=== PATIENT | female | born 1960 | race Caucasian/White ===

== ENCOUNTER 2023-02-18 15:43 | Outpatient (OUT) | payer OTHER, SELFPAY ==
--- NOTE | 2023-02-18 | XR_ITS ---
The [place] [id number] Patient Name: ANUPAM FRANCIS MRN: [id number] date: 1960 Sex: F Assigned Patient Location: [facility] Current Patient Location: [facility] Accession/Order Number: [id number] Exam Date: 02/18/2023 16:05 Report Date: 02/18/2023 17:12 At the request of: TUCKER HAYWOOD Procedure: XR chest 2V EXAM: CHEST 2 VIEWS HISTORY: MODERATE PERSISTENT ASTHMA WITH ACUTE EXACERBATION TECHNIQUE: PA and lateral views chest. COMPARISON: None. FINDINGS: The lungs are hyperinflated with mild interstitial opacities in the lungs likely from chronic small airways disease. There is scarring of the lung apices. There is no focal lung consolidation, pleural effusion or pneumothorax. Pulmonary vasculature is within normal limits. The cardiomediastinal silhouette is normal. There are surgical crystal overlying the right lung apex. IMPRESSION: 1. Pulmonary hyperinflation without consolidation or effusion. Electronically authenticated by: TONI NARANJO Date: 02/18/2023 17:12
== END 2023-02-18 15:44 | disposition home or self-care (01) ==
LOC: LAB 15:46 → RAD 15:48
PROVIDERS: PCP Family Medicine; Visit Provider Family Medicine
DX: J45.41 Moderate persistent asthma with (acute) exacerbation (principal)
CPT/HCPCS: 71046

== ENCOUNTER 2023-04-14 11:59 | Outpatient (OUT) | payer OTHER, SELFPAY ==
--- NOTE | 2023-04-06 09:16 | RT_ITS ---
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 Findings were considered accurate and reproducible. Both pre- and post-bronchodilator values utilized for spirometry. No prior studies available for comparison. Spirometry (based on pre-bronchodilator values): -FEV1/FVC: Low normal @ 72% -FEV1: Moderately reduced @ 76% -FVC: Low normal @ 80% -[id number]%: Reduced @ 57% -There is no significant bronchodilator response in either the FEV1 or FVC Flow-volume loop: -Mild-moderate obstructive pattern Impressions: -Though it does not meet the strict definition of obstruction (FEV1/FVC is not <70%), the study trends towards a moderate obstructive pattern without a positive bronchodilator response. This may suggest COPD, asthma-COPD overlap, or asthma with loss of bronchoreversibility. Clinical correlation required. Electronically Signed On 04-07-2023 15:50:13 EDT by Mao Holland
[2023-04-06] MEDS: ALBUTEROL SULFATE 2.5 MG/3 ML VIAL NEB IH (09:17)
== END 2023-04-14 12:00 | disposition home or self-care (01) ==
LOC: CARD 11:59
PROVIDERS: PCP Family Medicine
DX: J45.41 Moderate persistent asthma with (acute) exacerbation (principal)
CPT/HCPCS: 94060

== ENCOUNTER 2023-12-03 09:36 | Outpatient (OUT) | payer MEDICARE, SELFPAY ==
[2023-12-03 10:02] LABS: Basophils Absolute Auto 0.1 10^3/uL (0.0-0.1); Basophils Percent Auto 0.8 % (0.2-2.0); Eosinophils Absolute Auto 0.1 10^3/uL (0.0-0.7); Eosinophils Percent Auto 1.6 % (0.9-7.0); Hemoglobin 12.4 g/dL (12.0-16.0); Immature Granulocytes Abs Auto 0.01 10^3/uL (0.00-0.03); Immature Granulocytes Pct Auto 0.2 % (0.0-0.5); Lymphocytes Absolute Auto 1.3 10^3/uL (1.2-3.8); Lymphocytes Percent Auto 20.4 % (20.5-60.0); Mean Corpuscular HGB Conc 32.6 g/dL (29.9-35.2); Mean Corpuscular Hemoglobin 31.5 pg (26.7-34.0); Mean Corpuscular Volume 96.4 fL (81.0-99.0); Mean Platelet Volume 10.7 fL (9.5-13.5); Monocytes Absolute Auto 0.5 10^3/uL (0.3-0.8); Monocytes Percent Auto 7.9 % (1.7-12.0); Neutrophils Absolute Auto 4.3 10^3/uL (1.4-6.5); Neutrophils Percent Auto 69.1 % (43.0-75.0); Platelet Count 251 10^3/uL (150-450); Red Blood Count 3.94 10^6/uL (4.20-5.40); Red Cell Distribution Width 12.5 % (11.0-15.0); White Blood Count 6.2 10^3/uL (4.0-11.0)
[2023-12-03 11:03] LABS: Alanine Aminotransferase 23 U/L (14-59); Albumin Globulin Ratio 1.1; Albumin Level 4.1 g/dL (3.4-5.0); Alkaline Phosphatase 119 U/L (46-116); Anion Gap 13.1; Aspartate Amino Transferase 20 U/L (15-37); BUN Creatinine Ratio 16.7; Bilirubin Total 0.5 mg/dL (0.2-1.0); Calcium 9.6 mg/dL (8.5-10.1); Carbon Dioxide 29.4 mmol/L (21.0-32.0); Chloride 101 mmol/L (98-107); Estimated GFR (African America >60 (>=60); Estimated GFR (Non-African Ame 58 (>=60); Globulin 3.6 g/dL; Glucose 95 mg/dL (74-106); Magnesium 2.2 mg/dL (1.8-2.4); Potassium 3.5 mmol/L (3.5-5.1); Sodium 140 mmol/L (136-145); TSH W/ REFLEX FT4 5.632 uIU/mL (0.358-3.740); Total Protein 7.7 g/dL (6.4-8.2)
[2023-12-03 12:04] LABS: Free T4 1.05 ng/dL (0.76-1.46)
== END 2023-12-03 09:37 | disposition home or self-care (01) ==
LOC: LAB 09:40
PROVIDERS: PCP Family Medicine; Visit Provider Family Medicine
DX: E03.9 Hypothyroidism, unspecified (principal); R53.83 Other fatigue; G25.81 Restless legs syndrome
CPT/HCPCS: 36415; 80053; 82728; 83735; 84439; 84443; 85025

== ENCOUNTER 2024-01-25 15:30 | Outpatient (OUT) | payer MEDICARE, SELFPAY ==
--- NOTE | 2024-01-25 | XR_ITS ---
The [address] [address] Patient Name: ANUPAM FRANCIS MRN: [id number] date: 1960 Sex: F Assigned Patient Location: [facility] Current Patient Location: [facility] Accession/Order Number: [id number] Exam Date: 01/25/2024 15:55 Report Date: 01/26/2024 07:46 At the request of: NON-STAFF PHYSICIAN Procedure: XR bone leg length PROCEDURE: XR bone leg length COMPARISON: None. HISTORY: mechanical alignment FINDINGS: BONES:Mild bilateral hip osteoarthropathy with marginal osteophyte formation. Left knee osteoarthritis with joint space narrowing. Evidence of prior left anterior cruciate ligament repair. No acute fracture or dislocation. Right le.1 cm from the cranial femoral head to the medial femoral condyle Left le.2 cm in the cranial femoral head to the medial femoral condyle SOFT TISSUES:Negative. No visible soft tissue swelling. EFFUSION:None visible. OTHER: The legs are imaged from the mid pelvis to the distal tibia. The ankles are not imaged XR/XR bone leg length IMPRESSION: The femurs are equal in length Electronically authenticated by: IMAN BUENROSTRO Date: 01/26/2024 07:46
--- NOTE | 2024-01-25 15:41 | XR_ITS ---
The [address] [address] Patient Name: ANUPAM FRANCIS MRN: [id number] date: 1960 Sex: F Assigned Patient Location: [facility] Current Patient Location: Accession/Order Number: [id number] Exam Date: 01/25/2024 15:55 Report Date: 01/26/2024 07:10 At the request of: NON-STAFF PHYSICIAN Procedure: XR knee RC 4V EXAMINATION: XR knee RC 4V HISTORY: Primary osteoarthritis of left knee M17.12 COMPARISON: No relevant comparison available. FINDINGS: RIGHT FINDINGS: BONES: Normal. No significant arthropathy or acute abnormality. SOFT TISSUES: Negative. No visible soft tissue swelling. OTHER: Negative. LEFT FINDINGS: BONES: Evidence of prior ACL repair. Mild narrowing of the medial joint space. Mild tricompartmental osteoarthropathy with marginal osteophyte formation SOFT TISSUES: Negative. No visible soft tissue swelling. OTHER: Small suprapatellar joint effusion XR/XR knee RC 4V IMPRESSION: RIGHT CONCLUSION: No acute abnormality LEFT CONCLUSION: Mild tricompartment osteoarthritis Electronically authenticated by: IMAN BUENROSTRO Date: 01/26/2024 07:10
== END 2024-01-25 15:31 | disposition home or self-care (01) ==
LOC: RAD 15:31
PROVIDERS: PCP Family Medicine
DX: M17.12 Unilateral primary osteoarthritis, left knee (principal)
CPT/HCPCS: 73564; 77073

== ENCOUNTER 2024-02-18 12:09 | Outpatient (OUT) | payer MEDICARE, OTHER, SELFPAY ==
--- OUTSIDE RECORDS SUMMARY | 2024-02-18 12:26 | XMS_ITS | CCD ---
Author Organization [facility] Care Team Providers Care Cop Examiner Name Role Phone YOBANY, DR TUCKER Greenwood Attending Unavailable YOBANY, DR TUCKER Greenwood Primary Care Unavailable ONEYDA, DR ANTONIO Sorenson Consulting Unavailable HAYWOOD, DR TUCKER Greenwood Admitting Unavailable HAYWOOD, DR TUCKER Greenwood Consulting Unavailable HAYWOOD, DR TUCKER Greenwood Attending Unavailable HAYWOOD, DR TUCKER Greenwood Primary Care Unavailable ONEYDA, DR ANTONIO Sorenson Consulting Unavailable YOBANY, DR TUCKER Greenwood Admitting Unavailable HAYWOOD, DR TUCKER Greenwood Consulting Unavailable YOBANY, DR TUCKER Greenwood Primary Care Unavailable SHAIKH RILEY Attending Unavailable SHAIKH RILEY Consulting Unavailable SHAIKH RILEY Admitting Unavailable Unavailable Primary Care Provider Unavailtrice Haywood MD, Tucker Primary Care Provider [phone] Mel Giron MD Unavailable [phone] Emery MACHADO, Barbara L Unavailable Tucker Haywood MD Primary Care Provider [phone] Mel Giron MD Unavailable Emery MACHADO, Barbara L Unavailable [phone] Tucker Haywood Unavailable Tucker Haywood MD Primary Care Provider Mel Giron MD Unavailable Emery MACHADO, Barbara L Unavailable [phone] Sola Samayoa Unavailable MD Tucker Haywood Primary Care Provider [phone] LEI Samayoa Attending Provider [phone] MD Tucker Haywood Primary Care Provider [phone] Danita, PAPER WO[employer] CUTTER Sola Attending Provider Danita, Sola Admitting Unavailable Danita, Sola Attending Unavailable Haywood, Tucker E Primary Care Unavailable Danita, Sola Admitting Unavailable Danita, Sola Attending Unavailable Haywood, Utcker E Primary Care Unavailable Yobany SIERRA, Tucker Greenwood Primary Care Provider James SIERRA, Sarah Unavailable Unavailable Manan SIERRA, Chete Unavailable [phone] Lakeisha SIERRA, Wood Unavailable BRET ONEAL Attending Unavailable HAYWOOD, TUCKER E Primary Care Unavailable HILLS, MAURICIO D Attending Unavailable HILLS, MAURICIO D Referring Unavailable HILLS, MAURICIO D Referring Unavailable MARIN, KARMEN Attending Unavailable HILLS, MAURICIO D Referring Unavailable MARIN, KARMEN Attending Unavailable HILLS, MAURICIO D Referring Unavailable MARIN, KARMEN Attending Unavailable HILLS, MAURICIO D Referring Unavailable MARIN, KARMEN Attending Unavailable HILLS, MAURICIO D Referring Unavailable HILLS, MAURICIO D Referring Unavailable HILLS, MAURICIO D Attending Unavailable LILLIE ROMERO Attending Unavailable HAYWOOD, TUCKER Referring Unavailable HAYWOOD, TUCKER Primary Care Unavailable MEL VALDES P Attending Unavailable ABIMBOLA, TYRELL H Attending Unavailable HAYWOOD, TUCKER Primary Care Unavailable HAYWOOD, TUCKER Referring Unavailable ABIMBOLA, TYRELL H Admitting Unavailable HAYWOOD, TUCKER Referring Unavailable HAYWOOD, TUCKER Primary Care Unavailable ABIMBOLA, TYRELL H Attending Unavailable HAYWOOD, TUCKER Referring Unavailable HAYWOOD, TUCKER Primary Care Unavailable ABIMBOLA, TYRELL H Attending Unavailable HAYWOOD, TUCKER Referring Unavailable HAYWOOD, TUCKER Primary Care Unavailable ABIMBOLA, TYRELL H Attending Unavailable ABIMBOLA, TYRELL H Attending Unavailable HAYWOOD, TUCKER Primary Care Unavailable HAYWOOD, TUCKER Referring Unavailable BARBARA SANTIAGO Attending Unavailable HAYWOOD, TUCKER Primary Care Unavailable HAYWOOD, TUCKER Referring Unavailable HAYWOOD, TUCKER Referring Unavailable HAYWOOD, TUCKER Primary Care Unavailable ABIMBOLA, TYRELL H Attending Unavailable HAYWOOD, TUCKER Referring Unavailable HAYWOOD, TUCKER Primary Care Unavailable VALDESMEL SILVA Attending Unavailable Allergies Allergy Classification Reported Allergen(s) Allergy Type Date of Onset Reaction(s) Facility (6 sources) Plasmin Drug Allergy [address] [facility] Repository (20 sources) SUMAtriptan; Translations: [SUMATRIPTAN] Drug Allergy 3 Mental Status Change [facility] (1 source) SUMAtriptan Drug Allergy 4 [facility] Repository Medications Current Medications Medication Drug Class(es) Dates Sig (Normalized) Sig (Original) 30 ACTUAT fluticasone furoate 0.2 MG/ACTUAT / umeclidinium 0.0625 MG/ACTUAT / vilanterol 0.025 MG/ACTUAT Dry Powder Inhaler [Trelegy] (5 sources) Start: 11-27-2022 take 1 puff(s) by inhalation once daily Trelegy Ellipta 200-62.5-25 MCG/ACT 1 puff Inhalation Once a day for 90 days Oct, Active 8 hr acetaminophen 650 mg extended release oral tablet (20 sources) Start: 06-29-2022 take 1 tablet by mouth every six hours acetaminophen 650 MG Tab CR Take 1 tablet by mouth every 6 hours for 2 days. 8 tablet 0 06/29/2022 Active Start: 04-11-2022 End: 04-16-2022 take 3 tablets by mouth every eight hours acetaminophen 325 MG tablet Take 3 tablets by mouth every 8 hours for 5 days. 45 tablet 0 04/11/2022 Active Start: 04-10-2022 End: 04-11-2022 take 1 tablet by mouth every eight hours 975 mg, Oral, EVERY 8 HOURS NON-STANDARD, First dose on Wed04/10/22 at 1600, Until Discontinued Administer each dose four hours after dose of ibuprofen. Post-op/Post-Proc [id number] 200 actuat albuterol 0.09 mg/actuat metered dose inhaler (20 sources) beta2-Adrenergic Agonist Start: 10-01-2022 take 2 puff(s) by inhalation every four hours as needed Albuterol Sulfate HFA 108 (90 Base) MCG/ACT 2 puff Inhalation every 4 hrs prn for 90 days Sep, Active Start: 10-01-2022 take 2 puff(s) by in halation every four hours as needed Albuterol Sulfate HFA 108 (90 Base) MCG/ACT 2 puff Inhalation every 4 hrs prn for 90 days Sep, Active Start: 07-28-2021 Albuterol Acti ve 90 MCG INHALATION As Directed July 28, 2021 12:00am Start: 02-14-2021 take 2 puff(s) by in halation every six hours as needed albuterol HFA (PROAIR HFA) 90 mcg/actuation inhaler Inhale 2 Puffs as instructed every 6 hours as needed. 8.5 g 11 02/14/2021 Active Start: 08-12-2017 take 1 dose by inhal ation every four hours as needed for cough albuterol (PROVENTIL) 2.5 mg /3 mL (0.083 %) nebulizer solution inhale 1 (ONE) vial via NEBULIZER EVERY 4 HOURS NEEDED for cough 0 08/12/2017 Active Start: 11-28-2014 Albuterol Sulf ate (2.5 MG/3ML) 0.083% 3 ml Inhalation Four times a day as needed Nov, Active Albuterol Sulfat e 108 (90 Base) MCG/ACT Aerosol Powder, breath activated Inhale. Prn 0 Active amoxicillin 875 mg / clavulanate 125 mg oral tablet (1 source) Penicillin-class Antibacterial Start: 06-17-2023 take 1 tablet by mouth every twelve hours Amoxicillin-Pot Clavulanate 875-125 MG 1 tablet Orally every 12 hrs for 10 day(s) May, Active anastrozole 1 mg oral tablet (11 sources) Aromatase Inhibitor Start: 08-12-2022 End: 10-09-2023 take 1 tablet by mouth once daily anastrozole 1 MG tablet Indications: Malignant neoplasm of lower-inner quadrant of right breast of female, estrogen receptor positive Take 1 tablet by mouth daily. May take without regard to food. Dx: Breast Cancer 90 tablet 3 10/14/2022 10/09/2023 Active azithromycin 250 mg oral tablet (3 sources) Macrolide Antimicrobial Start: 05-11-2023 Azithromycin 250 MG as directed Orally 2 tabs po today, then 1 tab daily x 4 more days for 5 Apr, Active Start: 11-27-2022 Azithromycin 2 50 MG as directed Orally 2 tabs po today, then 1 tab daily x 4 more days for 5 Oct, Active 120 actuat budesonide 0.16 mg/actuat / formoterol fumarate 0.0048 mg/actuat / glycopyrrolate 0.009 mg/actuat metered dose inhaler (20 sources) Corticosteroid, beta2-Adrenergic Agonist Start: 12-29-2021 take 2 puff(s) by mouth twice daily Anderson Aerosphere 160-9-4.8 MCG/ACT Aerosol INHALE 2 PUFFS BY MOUTH TWICE DAILY 0 12/29/2021 Active Calcium Carbonate / Vitamin D (9 sources) Calcium Carbonate-Vitamin D (CALTRATE 600+D PO) Take by mouth. 0 Active cephalexin 500 mg oral capsule (5 sources) Cephalosporin Antibacterial Start: 04-11-2022 End: 04-25-2022 take 2 capsules by mouth twice daily cephALEXin 500 MG capsule Take 2 capsules by mouth 2 times daily for 14 days. 56 capsule 1 04/11/2022 04/25/2022 Active cetirizine hydrochloride 10 mg oral tablet (10 sources) Histamine-1 Receptor Antagonist Start: 05-19-2023 take 1 tablet by mouth every twenty-four hours Cetirizine HCl 10 MG 1 tablet Orally Once a day Take in the morning Apr, Active cyclobenzaprine hydrochloride 10 mg oral tablet (11 sources) Muscle Relaxant Start: 04-16-2022 End: 04-21-2022 take 1 tablet by mouth three times daily as needed for muscle spasms cyclobenzaprine 10 MG tablet Indications: Malignant neoplasm of lower-inner quadrant of right breast of female, estrogen receptor positive Take 1 tablet by mouth 3 times daily as needed for Muscle spasms for up to 5 days. 15 tablet 1 04/16/2022 Active Start: 04-10-2022 End: 04-16-2022 take 1 tablet by mouth every six hours as needed cyclobenzaprine 10 MG tablet Take 1 tablet by mouth every 6 hours as needed for Other (Muscle cramping or pain, use prior to opioids.) for up to 5 days. 20 tablet 0 04/11/2022 04/16/2022 Active docusate sodium 100 mg oral capsule (3 sources) Start: 04-11-2022 End: 04-18-2022 take 1 capsule by mouth twice daily docusate 100 MG capsule Take 1 capsule by mouth 2 times daily for 7 days. 14 capsule 0 04/11/2022 04/18/2022 Active esomeprazole 40 mg delayed release oral capsule (20 sources) Proton Pump Inhibitor Start: 06-24-2017 take 1 capsule by mouth once daily esomeprazole (NEXIUM) 40 mg capsule Take 1 capsule by mouth once daily. 0 06/24/2017 Active take 1 capsule by [facility] once daily before breakfast esomeprazole [address] capsule Take 1 capsule by mouth every morning before breakfast. 0 Active estradiol 0.5 mg oral tablet (13 sources) Estrogen Start: 07-28-2021 End: 03-20-2022 Estradiol Active 0.5 MG PO As Directed July 28, 2021 12:00am exemestane 25 mg oral tablet (5 sources) Aromatase Inhibitor Start: 05-17-2023 take 1 tablet by mouth once daily at mealtime exemestane 25 MG tablet Indications: Malignant neoplasm of lower-inner quadrant of right breast of female, estrogen receptor positive Take 1 tablet by mouth daily. Take with food. Dx C50.919 30 tablet 1 05/17/2023 Active famotidine 20 mg oral tablet (5 sources) Histamine-2 Receptor Antagonist take 1 tablet by mouth at bedtime faMOTIdine 20 MG tablet Take 1 tablet by mouth at bedtime. 0 Active Fluticasone-Umecl idin-Vilanter (2 sources) Start: 07-28-2021 Fluticasone-Um ecli din-Vilanter (Trelegy Ellipta) 200-62.5-25 mcg blister with device Active 2 INH INHALATION As Directed July 28, 2021 12:00am fluticasone-umecl idin-vilanter (TRELEGY ELLIPTA) 200-62.5-25 mcg dsdv (2 sources) Start: 09-16-2020 fluticasone-um ecli din-vilanter (TRELEGY ELLIPTA) 200-62.5-25 mcg dsdv Indications: Moderate persistent asthma with acute exacerbation Inhale 1 Inhalation as instructed once daily. 1 Inhaler 11 09/16/2020 Active furosemide 20 mg oral tablet (20 sources) Loop Diuretic Start: 07-28-2021 take 1 tablet by mouth once daily Furosemide (Lasix) 20 mg Tablet Active 20 MG PO Daily July 28, 2021 12:00am ibuprofen 400 mg oral tablet (20 sources) Nonsteroidal Anti-inflammatory Drug Start: 06-29-2022 take 1 tablet by mouth every six hours ibuprofen 400 MG tablet Take 1 tablet by mouth every 6 hours for 2 days. 8 tablet 0 06/29/2022 Active Start: 04-11-2022 End: 04-16-2022 take 1 tablet by mouth every eight hours ibuprofen 600 MG tablet Take 1 tablet by mouth every 8 hours for 5 days. 15 tablet 0 04/11/2022 Active Start: 04-10-2022 End: 04-11-2022 take 1 tablet by mouth every eight hours 600 mg, Oral, EVERY 8 HOURS NON-STANDARD, First dose on Wed04/10/22 at 2000, Until Discontinued Administer each dose four hours after dose of acetaminophen. Post-op/Post-Proc letrozole 2.5 mg oral tablet (7 sources) Aromatase Inhibitor Start: 07-20-2023 End: 09-08-2023 take 1 tablet by mouth once daily Letrozole 2.5 MG tablet Indications: Malignant neoplasm of lower-inner quadrant of right breast of female, estrogen receptor positive Take 1 tablet by mouth daily. Dx C50.919 90 tablet 3 09/08/2023 Active Start: 06-28-2023 take 1 tablet by princess th once daily Letrozole 2.5 MG tablet Indications: Malignant neoplasm of lower-inner quadrant of right breast of female, estrogen receptor positive Take 1 tablet by mouth daily. Dx C50.919 30 tablet 2 06/28/2023 Active levothyroxine sodium 0.05 mg oral tablet (20 sources) l-Thyroxine Start: 03-10-2014 End: 04-11-2022 take 1 tablet by mouth once daily before breakfast levothyroxine (SYNTHROID) 50 mcg tablet Take 1 tablet by mouth daily before breakfast. 90 tablet 3 03/10/2014 Active Levothyroxine So dium 50 MCG TAKE 1 TABLET DAILY Active magnesium oxide 400 mg oral tablet (20 sources) take 1 tablet by princess th once daily magnesium oxide 400 mg tablet Take 400 mg by mouth once daily. 0 Active MAGNESIUM OXIDE PO Take by mouth. 0 Active MAGNESIUM OXIDE PO Take by mouth. 0 Suspended meloxicam 15 mg oral tablet (20 sources) Nonsteroidal Anti-inflammatory Drug Start: 01-27-2022 meloxicam 15 MG tablet as needed. 0 01/27/2022 Active Meloxicam (MOBIC PO) Take by mouth. 0 Active methylPREDNISolone 4 mg oral tablet (12 sources) Corticosteroid Start: 11-27-2022 methylPREDNISo lone 4 MG as directed Orally for 6 days Oct, Active Start: 11-27-2014 Depo-Medrol 80 mg Oct, 80 mg montelukast 10 mg oral tablet (10 sources) Leukotriene Receptor Antagonist Start: 05-19-2023 take 1 tablet by mouth every twenty-four hours Montelukast Sodium 10 MG 1 tablet Orally Once a day Take at night Apr, Active predniSONE 10 mg oral tablet (9 sources) Start: 02-18-2023 predniSONE 10 MG 4 tabs po daily x 2 days, 3 tabs daily x 2 days, 2 tabs daily x 2 days, 1 tab daily x 2 days Orally Once a day for 8 Apr, Active End: 09-08-2023 take 1 tablet by mouth once daily predniSONE 10 MG tablet Take 1 tablet by mouth daily. Taper ends 02/25/23 0 09/08/2023 Discontinued (Therapy completed) ProAir HFA 108 (90 Base) MCG/ACT (7 sources) take 2 puff(s) by mo uth every four hours as needed for cough ProAir HFA 108 (90 Base) MCG/ACT INHALE 2 PUFFS BY MOUTH EVERY 4 HOURS NEEDED for SHORTNESS OF BREATH & cough Inhalation Active take 2 puff(s) by in halation every four hours as needed ProAir HFA 108 (90 Base) MCG/ACT 2 puffs as needed Inhalation every 4 hrs Not-Taking Vitamin D (5 sources) Vitamin D Active vitamin e 180 mg oral capsule (14 sources) take 1 capsule by mo uth once daily vitamin E 400 units capsule Take 1 capsule by mouth daily. 0 Active take 1 capsule by mouth once papa ly vitamin E 400 units capsule Take 1 capsule by mouth daily. 0 Active Vitamin E Active Completed/Discontinued Medications Medication Drug Class(es) Dates Sig (Normalized) Sig (Original) albuterol 0.833 mg/ml / ipratropium bromide 0.167 mg/ml inhalation solution (2 sources) Anticholinergic, beta2-Adrenergic Agonist Start: 01-03-2015 take 3 mL by inhalation four times daily Ipratropium-Albut darya 0.5-2.5 (3) MG/3ML 3 ml Inhalation Four times a day December, Not-Taking benzonatate 100 mg oral capsule (2 sources) Non-narcotic Antitussive Start: 11-27-2014 take 1 capsule by mouth three times daily as needed Tessalon Perles 100 mg 1 capsule as needed Orally Three times a day for 7 days Oct, Not-Taking calcium chloride 0.0014 meq/ml / potassium chloride 0.004 meq/ml / sodium chloride 0.103 meq/ml / sodium lactate 0.028 meq/ml injectable solution (2 sources) Start: 04-10-2022 End: 04-11-2022 take 1 mL by mouth every hour Intravenous, at 75 mL/hr, CONTINUOUS, Starting on Wed04/10/22 at 1245, Until Wed04/11/22 at 0616 May saline well PIV after 6 hours if tolerating PO fluids w/o N/V. Post-op/Post-Proc Start: 04-10-2022 End: 04-10-2022 lactated ringers IV solution ceFAZolin 1000 mg injection (1 source) Cephalosporin Antibacterial Start: 04-10-2022 End: 04-11-2022 take 1 g intravenously every eight hours 1 g, Intravenous, Administer over 15 Minutes, EVERY 8 HOURS NON-STANDARD, 3 doses, First dose on Wed04/10/22 at 1415, Last dose on Wed04/11/22 at 0615, Post-op/Post-Proc Fluticasone-Um eclidin-Vilant (Trelegy Ellipta) 200-62.5-25 MCG/ACT Aerosol Powder, breath activated (8 sources) End: 09-08-2023 Fluticasone-Umeclidin -Vilant (Trelegy Ellipta) 200-62.5-25 MCG/ACT Aerosol Powder, breath activated Inhale. 0 09/08/2023 Discontinued (Therapy completed) Fluticasone-Umec lidin-Vilant (Trelegy Ellipta) 200-62.5-25 MCG/ACT Aerosol Powder, breath activated Inhale. 0 Active 120 actuat formoterol fumarate 0.005 mg/actuat / mometasone furoate 0.2 mg/actuat metered dose inhaler (2 sources) Corticosteroid, beta2-Adrenergic Agonist Start: 07-18-2014 take 2 puff(s) by inhalation twice daily Dulera 200-5 MCG/ACT 2 puffs Inhalation Twice a day Jun, Not-Taking gadoterate Meglumine (DOTAREM) 5 MMOL/10ML injection 3-60 mL (1 source) Start: 02-27-2022 End: 02-27-2022 gadoterate Meglumine (DOTAREM) 5 MMOL/10ML injection 3-60 mL 1 ml HYDROmorphone hydrochloride 1 mg/ml cartridge (2 sources) Opioid Agonist Start: 04-10-2022 End: 04-10-2022 HYDROmorphone (DILAUDID) injection 0.5-1 mg Start: 04-10-2022 End: 04-10-2022 HYDROmorphone (DILAUDID) inj ection Magnesium (2 sources) take 1 tablet by mouth once daily Magnesium 800 MG 1 tablet with a meal Orally Once a day for 30 day(s) Not-Taking omeprazole 20 mg delayed release oral capsule (2 sources) Proton Pump Inhibitor take 1 capsule by mouth twice daily Omeprazole 20 MG 1 capsule Orally twice daily for 30 days Not-Taking ondansetron 4 mg disintegrating oral tablet (7 sources) Serotonin-3 Receptor Antagonist Start: 06-29-20 End: 08-12-20 take 1 tablet by mouth every eight hours as needed ondansetron 4 MG Tab Dispersible tablet Take 1 tablet by mouth every 8 hours as needed for Nausea / Vomiting. 1 tablet 0 06/29/2022 08/12/2022 Discontinued (Therapy completed) Start: 04-10-2022 End: 04-11-2022 take 4 mg intravenously every six hours as needed 4 mg, Intravenous, EVERY 6 HOURS NEEDED, Starting on 04/10/22 at 1401, Until 04/11/22 at 1154, Nausea / Vomiting, 1st line If N/V persists through 1st line, continue 1st line therapy in addition to 2nd line therapy. Post-op/Post-Proc Start: 04-10-2022 End: 04-10-2022 ondansetron 4mg/2ml (ZOFRAN) injection 4 mg oxyCODONE hydrochloride 5 mg oral tablet (20 sources) Opioid Agonist Start: 07-15-2023 End: 09-08-2023 take 1 tablet by mouth every six hours as needed oxyCODONE 5 MG tablet Indications: Post-op pain Take 1 tablet by mouth every 6 hours as needed for up to 3 days. 10 tablet 0 07/15/2023 09/08/2023 Discontinued (Therapy completed) Start: 02-16-2023 take 1 tablet by princess th every eight hours as needed for pain oxyCODONE 5 MG tablet Indications: Capsular contracture of breast implant, initial encounter Take 1 tablet by mouth every 8 hours as needed for Severe Pain for up to 7 days. 21 tablet 0 02/16/2023 Active Start: 06-29-2022 End: 08-12-2022 take 1 tablet by mouth every six hours as needed oxyCODONE 5 MG tablet Indications: Acquired absence of right breast and nipple , Malignant neoplasm of lower-inner quadrant of right breast of female, estrogen receptor positive Take 1 tablet by mouth every 6 hours as needed for up to 2 days. 8 tablet 0 06/29/2022 08/12/2022 Discontinued (Therapy completed) Start: 04-11-2022 End: 04-18-2022 take 1 tablet by mouth every six hours as needed for pain oxyCODONE 5 MG tablet Indications: Malignant neoplasm of lower-inner quadrant of right breast of female, estrogen receptor positive Take 1 tablet by mouth every 6 hours as needed for Moderate Pain for up to 7 days. 30 tablet 0 04/11/2022 Active Start: 04-10-2022 End: 04-11-2022 take 1 tablet by mouth every four hours as needed oxyCODONE (ROXICODONE) tablet 2.5 mg 2 ml prochlorperazine 5 mg/ml injection (1 source) Phenothiazine Start: 04-10-2022 End: 04-11-2022 take 10 mg intravenously every six hours as needed 10 mg, Intravenous, EVERY 6 HOURS NEEDED, Starting on 04/10/22 at 1401, Until 04/11/22 at 1154, Refractory Nausea Vomiting In addition to 1st line therapy. Post-op/Post-Proc regadenoson (LEXISCAN) injection 0.4 mg (1 source) Start: 03-18-2022 End: 03-18-2022 regadenoson (LEXISCAN) injection 0.4 mg 72 hr scopolamine 0.0139 mg/hr transdermal system (1 source) Anticholinergic Start: 04-10-2022 End: 04-10-2022 scopolamine (TRANSDERM-SCOP) patch 1 patch sennosides, mcfp 8.6 mg oral tablet (1 source) Start: 04-10-2022 End: 04-11-2022 take 8.6 mg by mouth twice daily 8.6 mg, Oral, 2 TIMES DAILY, First dose on Wed04/10/22 at 1700, Until Discontinued, Post-op/Post-Proc 10 ml sodium chloride 9 mg/ml injection (2 sources) Start: 03-18-2022 End: 03-18-2022 sodium chloride (PF) 0.9 % injection 10-50 mL Start: 02-27-2022 End: 02-27-2022 sodium chloride (PF) 0.9 % i njection 1-100 mL TC-99M SULFUR COLLOID (0.10 UM FILTRATE) IVPB 0.36-0.6 millicurie (1 source) Start: 04-10-2022 End: 04-10-2022 TC-99M SULFUR COLLOID (0.10 UM FILTRATE) IVPB 0.36-0.6 millicurie Technetium Tc 99m Sestamibi (Sestamibi) 7.2-38.5 millicurie (1 source) Start: 03-18-2022 End: 03-18-2022 Technetium Tc 99m Sestamibi (Sestamibi) 7.2-38.5 millicurie Technetium Tc 99m Sestamibi (Sestamibi) 7.2-49.5 millicurie (1 source) Start: 03-18-2022 End: 03-18-2022 Technetium Tc 99m Sestamibi (Sestamibi) 7.2-49.5 millicurie traMADol hydrochloride 50 mg oral tablet (1 source) Opioid Agonist Start: 04-10-2022 End: 04-11-2022 take 1 tablet by mouth every six hours as needed 50 mg, Oral, EVERY 6 HOURS NEEDED, Starting on Wed04/10/22 at 1401, Until 04/11/22 at 1154, Mild Pain, Moderate Pain, Post-op/Post-Proc triamcinolone acetonide 1 mg/ml topical cream (11 sources) Corticosteroid Start: 08-28-2022 End: 09-08-2023 triamcinolone 0.1 % Cream cream Apply to itchy, radiated skin twice per day for 7-10 days. 28.4 g 0 08/28/2022 09/08/2023 Discontinued (Therapy completed) 24 hr venlafaxine 37.5 mg extended release oral capsule (17 sources) Serotonin and Norepinephrine Reuptake Inhibitor Start: 08-12-2022 End: 10-09-2023 take 1 capsule by mouth once daily venlafaxine 37.5 MG Cap SR 24HR capsule XR Indications: Malignant neoplasm of lower-inner quadrant of right breast of female, estrogen receptor positive , Hot flashes due to menopause Take 1 capsule by mouth daily. 90 capsule 3 10/14/2022 09/08/2023 Discontinued (Therapy completed) Effexor Active Problems Active Problems Problem Classification Problem Date Documented Da te Episodic/Chronic Asthma (20 sources) Exacerbation of asthma; Translations: [Asthma exacerbation] Onset: 03-01-2017 Chronic Cancer of breast (20 sources) Malignant neoplasm of lower-inner quadrant of right female breast; Translations: [Malignant neoplasm of lower-inner quadrant of female breast] Onset: 01-20-2022 Chronic Esophageal disorders (7 sources) Gastro-esophageal reflux disease without esophagitis; Translations: [Gastroesophageal reflux disease] Chronic Joint disorders and dislocations; trauma-related (1 source) Acute tear of medial meniscus of left knee; Translations: [Other tear of medial meniscus, current injury, left knee, initial encounter] 01-21-2024 Episodic Malaise and fatigue (6 sources) Other fatigue; Translations: [Fatigue] Onset: 06-21-2021 Episodic Menopausal disorders (1 source) Menopausal flushing; Translations: [Menopausal and female climacteric states] Chronic Miscellaneous mental health disorders (5 sources) Lack or loss of sexual desire; Translations: [Hypoactive sexual desire disorder] Chronic Nonmalignant breast conditions (12 sources) Unspecified lump in the right breast, lower inner quadrant; Translations: [Unspecified lump in the right breast, unspecified quadrant] Onset: 01-15-2022 Episodic Open wounds of extremities (1 source) Puncture wound without foreign body of right hand, initial encounter Episodic Osteoarthritis (2 sources) Osteoarthritis of left knee joint; Translations: [Unilateral primary osteoarthritis, left knee] 01-21-2024 Chronic Other aftercare (1 source) Drug therapy finding; Translations: [Encounter for therapeutic drug level monitoring] 2023 Episodic Other connective tissue disease (5 sources) Pain in limb; Translations: [Pain in left leg] Episodic Other gastrointestinal disorders (10 sources) Constipation; Translations: [Constipation, unspecified] Episodic Other lower respiratory disease (3 sources) Interstitial lung disease; Translations: [Interstitial pulmonary disease, unspecified] Chronic Other lower respiratory disease (1 source) Multiple nodules of lung; Translations: [Other nonspecific abnormal finding of lung field] Episodic Other lower respiratory disease (2 sources) Other nonspecific abnormal finding of lung field; Translations: [Other nonspecific abnormal finding of lung field] Onset: 10-15-2023 Episodic Other non-traumatic joint disorders (5 sources) Pain in left knee; Translations: [Left knee pain] Episodic Other nutritional; endocrine; and metabolic disorders (5 sources) Weight gain; Translations: [Abnormal weight gain] Episodic Other screening for suspected conditions (not mental disorders or infectious disease) (20 sources) Patient encounter status; Translations: [Encounter for other screening for genetic and chromosomal anomalies] Onset: 04-01-2022 04-01-2022 Episodic Residual codes; unclassified (2 sources) Daytime somnolence; Translations: [Other hypersomnia] Onset: 03-01-2017 03-01-2017 Chronic Residual codes; unclassified (1 source) Family history of malignant neoplasm of digestive organs; Translations: [FAM HX MALIG NEOPLASM DIGESTIV ORGN] Onset: 01-21-2022 Episodic Residual codes; unclassified (12 sources) Acquired absence of breast; Translations: [Acquired absence of unspecified breast and nipple] Episodic Residual codes; unclassified (5 sources) Reduced libido; Translations: [Decreased libido] Episodic Residual codes; unclassified (1 source) Hot flash due to medication; Translations: [Flushing] 2023 Episodic Thyroid disorders (11 sources) Hypothyroidism, unspecified; Translations: [Hypothyroidism] Onset: 02-28-2014 Chronic Unclassified (1 source) Other specified cough; Translations: [Other specified cough] Onset: 07-07-2023 Unclassified (2 sources) Post Op Visit; Translations: [Post Op Visit] Onset: 07-21-2023 Unclassified (2 sources) Pre-op Exam; Translations: [Pre-op Exam] Onset: 06-30-2023 Viral infection (5 sources) Herpes simplex otitis externa; Translations: [Herpesviral vesicular dermatitis] Episodic Past or Other Problems Problem Classification Problem Date Documented Date Episodic/Chronic Cancer of breast (6 sources) History of malignant neoplasm of breast; Translations: [Personal history of malignant neoplasm of breast] Onset: 09-08-2023 Episodic Complication of device; implant or graft (2 sources) Erosion of implanted vaginal mesh to surrounding organ or tissue, initial encounter; Translations: [Erosion of implanted vaginal mesh and other prosthetic materials to surrounding organ or tissue] Onset: 05-30-2013 05-30-2013 Episodic Conditions associated with dizziness or vertigo (2 sources) Dizziness and giddiness; Translations: [Dizziness and giddiness] Onset: 06-24-2020 06-24-2020 Episodic Mood disorders (20 sources) Mood disorders Onset: 02-24-2022 Resolved: 09-08-2023 02-24-2022 Other ear and sense organ disorders (2 sources) Otalgia, right ear; Translations: [Otalgia, unspecified] Onset: 06-24-2020 06-24-2020 Episodic Other nervous system disorders (2 sources) Other acute postprocedural pain; Translations: [Other acute postprocedural pain] Onset: 07-15-2023 Episodic Pneumonia (except that caused by tuberculosis or sexually transmitted disease) (2 sources) Recurrent pneumonia; Translations: [Pneumonia, unspecified organism] Onset: 03-01-2017 03-01-2017 Episodic Residual codes; unclassified (2 sources) Acquired absence of unspecified breast and nipple; Translations: [Acquired absence of unspecified breast and nipple] Onset: 09-08-2023 Episodic Residual codes; unclassified (2 sources) Acquired absence of right breast and nipple; Translations: [Acquired absence of right breast and nipple] Onset: 07-15-2023 Episodic Residual codes; unclassified (2 sources) Other specified health status; Translations: [Other specified health status] Onset: 07-02-2023 Episodic Residual codes; unclassified (2 sources) Estrogen receptor positive status [ER+]; Translations: [Estrogen receptor positive status (ER+)] Onset: 04-10-2022 Episodic Unclassified (5 sources) Upper airway cough syndrome; Translations: [Upper airway cough syndrome] Unclassified (2 sources) Upper airway cough syndrome R05.8 Viral infection (5 sources) Disease caused by 2019-nCoV; Translations: [COVID-19] Results Test Name Value Interpretation Reference Range [facility] Letter Text Normal [facility] CNOVon 01-21-2024 CNOV Office Visit (ORTHMN ) MALIA COOK ([id number]) 1960 F Date Time Provider Department 01/21/24 8:30 AM BRET ONEAL ORTHLEONARDO During your visit today, we recorded the following information about you: Weight Height 63.5 kg 1.6 m Bret Oneal PA-C 01/21/2024 9:06 AM Signed Patient: Malia Cook : 1960 Providers Referring physician: Tucker Haywood MD Primary care physician: Tucker Haywood MD Chief complaint: Patient presents with: Left Knee Pain Patient seen in subspecialty orthopedic knee consultation at the request of Tucker Haywood MD. The final recommendations will be communicated back to the requesting clinician by way of the shared medical record or letter via US mail. HPI: Malia Cook is a 63 year old female seen with a 2 months history of left knee pain. The onset of pain has been acute on chronic, and the pain is worsening. The pain is primarily localized to the Left medial hemijoint. PAIN EVALUATION 01/14/2024 1036 01/21/2024 0835 Pain Level: 5 3 Pain Location: Knee-Left Knee-Left Description: Burning;Stabbing Aching Duration Amount of Time: 24 6 Duration Units: Weeks Weeks Frequency: Intermittent Continuous Intervention/Comfort measure: Medication;Relaxation; Cold;Pillow support Medication The patient confirms preceding traumatic injury. The patient does have pain with weight-bearing. The patient does not have pain at night. The patient has no difficulty with placing shoes and socks. The pain is exacerbated with ADL's, pivoting, prolonged sitting, prolonged standing, recreational activities, and walking. She denies numbness, tingling, or electric shocks. She reports popping. Alleviating factors: Meds and Sitting Prior pertinent orthopedic surgery: ACL reconstruction in ~2004 Prior interventions: Physical therapy: Yes - unable to tolerate Injections/ aspiration: Yes 12/13/23 Bracing: Yes hinged knee brace Assistive devise: walker and crutches Pain medications: Ibuprofen and Tylenol Past Medical History PAST MEDICAL HISTORY Diagnosis Date Asthma GERD (gastroesophageal reflux disease) Hypothyroid Pneumonia Past Surgical History PAST SURGICAL HISTORY Procedure Laterality Date DANDC, DIAG AND/OR THERAPEUTIC 02/2012 Dilation AND curettage PAST SURGICAL HISTORY OF 2002 ACL repair--left PAST SURGICAL HISTORY OF 1999 Right heel replacement PAST SURGICAL HISTORY OF 1991 Left ulna nerve repair PAST SURGICAL HISTORY OF 1990 right TOS PAST SURGICAL HISTORY OF 1990 right and left carpal tunnel surgery PAST SURGICAL HISTORY OF 1979 laparoscopic, tubal ligation, appy SLING OPER STRES INCONTINENCE 2006 mid-urethral sling (TOT with rectocele repair) TOTAL ABDOM HYSTERECTOMY 10/2012 TLH/BSO robotic Family History FAMILY HISTORY Problem Relation Age of Onset Cervical Cancer Maternal Aunt Diabetes Father Hypertension Father Heart Failure Father Hypertension Mother Hyperlipidemia Mother Thyroid Sister thyroidectomy Colon Cancer Sister Diabetes Brother Diabetes Brother Diabetes Brother Diabetes Sister Stroke Son 6 Diabetes Son Social History Social History Tobacco Use Smoking status: Never Smokeless tobacco: Never Substance Use Topics Alcohol use: Yes Comment: social Drug use: No Allergies: ALLERGIES Allergen Reactions Imitrex [Sumatripta* Mental Status Change Medications Current Outpatient Medications: furosemide (LASIX) 20 mg tablet albuterol HFA (PROAIR HFA) 90 mcg/actuation inhaler fluticasone-umeclidin- vilanter (TRELEGY ELLIPTA) 200-62.5-25 mcg dsdv albuterol (PROVENTIL) 2.5 mg /3 mL (0.083 %) nebulizer solution esomeprazole (NEXIUM) 40 mg capsule Estradiol (ESTRACE) 0.5 mg tablet levothyroxine (SYNTHROID) 50 mcg tablet magnesium oxide 400 mg tablet Review of Systems: Reviewed and charted into [facility]. Physical Exam: PE reveals a female with the following vitals signs: Ht 160 cm (5' 3 ) Wt 63.5 kg (140 lb) BMI 24.80 kg/m? Body mass index is 24.8 kg/m?. General appearance: Well appearing, alert, in no acute distress, well-hydrated, well nourished. Psych: Mood and affect broad and appropriate Head: Normocephalic, no masses, lesions, tenderness or abnormalities Eyes: Anicteric sclera. Pupils are equally round and reactive to light. Extraocular movements are intact. ENT: Nares patent Lymph: There is no lymphadenopathy. The patient has a stable gait with no assistance. KNEE EXAM: Left Extension 0 degrees Flexion 110 degrees Straight leg raise intact Yes Knee effusion No Knee stable (Bora, Posterior drawer, Varus/ Valgus) Yes Point tenderness on palpation: tender to the Left medial and lateral joint line. Skin: Normal temperature without erythema Scars: Yes Motor/sensory function: Intact DP/PT pulses: 2+ HIP EXAM: (more content not included)... Normal [facility] CNPNon 01-21-2024 CNPN Telephone (ORTHMN) MALIA COOK ([id number]) 1960 F Date Time Provider Department 01/21/24 BRET ONEAL During your visit today, we recorded the following information about you: Bret Oneal PA-C 01/21/2024 5:55 PM Signed Discussed pt's case with Dr. Jasso. Recommending PA flexion WB view and FLEA prior to deciding on scope v UKA. If we indicate scope, then I would have her protect the WB post-op given the stress response; prior to surgery, she can protect WB to see if tibial bone pain contributions improve. Discussed above with pt. She will trial a course of protected WBing and I will send her an order for the x-rays through . Once we receive the XRs, will review with Dr. Jasso to determine the next steps. Bret Oneal PA-C Allergies As of Date: 01/21/2024 Noted Allergy Reaction IMITREX (SUMATRIPTAN) 05/30/2013 1 - Mental Status Change Date Reviewed: 01/21/2024 Reviewed by: Tawana Riojas MA - Fully Assessed Primary Visit Diagnosis:Primary osteoarthritis of left knee [M17.12] Order(s):XR KNEE GENERAL 4V AP BOTH/PA BOTH/LAT/MERC LEFT [[id number]] Order #: [id number] FUTURE XR LEG FRONTAL HIP TO ANKLE MECHANICAL AXIS [[id number]] Order #: [id number] FUTURE Prescriptions as of 01/21/2024 - furosemide (LASIX) 20 mg tablet Take 20 mg by mouth once daily. - albuterol HFA (PROAIR HFA) 90 mcg/actuation inhaler Inhale 2 Puffs as instructed every 6 hours as needed. - fluticasone-umeclidin- vilanter (TRELEGY ELLIPTA) 200-62.5-25 mcg dsdv Inhale 1 Inhalation as instructed once daily. - albuterol (PROVENTIL) 2.5 mg /3 mL (0.083 %) nebulizer solution inhale 1 (ONE) vial via NEBULIZER EVERY 4 HOURS NEEDED for cough - esomeprazole (NEXIUM) 40 mg capsule Take 1 capsule by mouth once daily. - Estradiol (ESTRACE) 0.5 mg tablet Take 0.5 mg by mouth once daily. - levothyroxine (SYNTHROID) 50 mcg tablet Take 1 tablet by mouth daily before breakfast. - magnesium oxide 400 mg tablet Take 400 mg by mouth once daily. Problem List As Of Date 01/21/2024 Noted Resolved Vaginal erosion due to surgical mesh [T83.711A] 05/30/2013 Unspecified hypothyroidism [E03.9] 02/28/2014 Moderate persistent asthma without complication* 7 Excessive daytime sleepiness [G47.19] 03/01/2017 Recurrent pneumonia [J18.9] 03/01/2017 Dizziness and giddiness [R42] 06/24/2020 Right ear pain [H92.01] 06/24/2020 Encounter Status:Closed by BRET ONEAL on 01/21/24 Normal [facility] MR KNEE LEFT WO IV CONTRASTo n 01-04-2024 MR KNEE LEFT WO IV CONTRAST Exam: MR KNEE LEFT WO IV CONTRAST History: Left knee pain. Patient felt a pop 12/08/2022. Technique: Multiplanar multisequence MRI of the knee was performed without contrast. Comparison: Radiographs December 13, 2023 Findings: Quadriceps and patellar tendons are intact. Small joint effusion. Postsurgical changes of ACL reconstruction. The ACL graft is intact. The posterior cruciate ligament is intact. The medial collateral ligament, lateral collateral ligament, and popliteus are intact. Complete radial tear of the posterior horn of the medial meniscus. The lateral meniscus is intact. High-grade partial-thickness cartilage loss of the majority of the weightbearing medial femoral condyle without well-defined cartilage defect. 5 mm high-grade partial-thickness if not full-thickness cartilage defect of the medial tibial plateau. Bone marrow edema is present within the medial tibial plateau and is nonspecific. There is a 6 mm area of hypointense T1/T2 signal within the subcortical medial tibial plateau. There is partial-thickness cartilage loss of the medial patellar facet without well-defined cartilage defect. Popliteal fossa structures are intact. No Myers cyst. IMPRESSION: Complete radial tear of the posterior horn of the medial meniscus. Bone marrow edema within the medial tibial plateau may be degenerative, reactive to the medial meniscus tear, or due to 6 mm developing subcortical insufficiency fracture. ELECTRONICALLY SIGNED BY: Edward Johnson, Normal Not Available Comment on above: Order Comment: Breas t implant removed 06/2023. Previous ACL reconstruction, large screw to tibial post. Implant in heel CT chest w conon 10-15-2023 CT chest w con [facility] Main [place] [address] [place] [address] CT Scan Report Signed Patient: Malia Cook MR#: [id number] : 1960 Acct:[id number] Age/Sex: 63 / F ADM Date: 10/15/23 Loc: CT Room: Type: [facility] Attending Dr: JASON Reddy APRN Copies to: Sola Samayoa APRN, ACNP-BC Ordering Provider: Sola Samayoa APRN, ACNP-BC Date of Service: 10/15/23 CT/CT chest w con: R91.8 CT chest w con 10/15/2023 3:41 PM SIGN AND SYMPTOMS: Chronic cough, follow-up lung nodules, history of breast cancer CONTRAST: 90 mL of intravenous Isovue-300 TECHNIQUE: Multidetector CT axial slices of the chest were obtained with IV contrast. Multiplanar reformats were performed and viewed on a separate workstation and reviewed to further define anatomy and possible pathology. CT was performed with one or more of the following dose reduction techniques: Automated exposure control, adjustment of the mA and/or kV according to patient size, or use of iterative reconstruction technique. COMPARISON: 07/07/2023, 02/22/2017, and 08/21/2016. FINDINGS: Lower neck: Calcifications are noted in the right thyroid lobe. These are unchanged. Vessels: Within normal limits. No atherosclerotic changes in the aorta. and coronary arteries. Atherosclerotic changes are noted in the thoracic aorta. And Ángela: Within normal limits. Heart: Normal size. No pericardial effusion. Airways: Within normal limits Lungs: There is an 8 mm noncalcified nodule laterally in the right upper lobe on series 4 image 27. This is unchanged. Dependent scarring or atelectasis is redemonstrated, left greater than right. There is an unchanged 9 mm noncalcified nodule medially in the left lower lobe on series 4 image 22. Additional nodules are present although better seen on the previous study. No new pulmonary nodules are visualized. There is similar scarring in the lingula. Pleura: Within normal limits. Chest Wall: There has been interval removal of the prosthesis/family practice physician. There is evidence of previous right-sided mastectomy. Upper Abdomen: Within normal limits. Bones: There is a healed or healing fracture of the anterior/lateral right sixth rib. This is similar to that seen on the prior exam. Degenerative changes are noted in the thoracic spine. The right first rib has been previously resected. Similar lucency is noted in the right T1 transverse process. CT/CT chest w con IMPRESSION: Multiple pulmonary nodules are redemonstrated. Multiple comparison studies from outside institutions are available. Nodules appear to be grossly stable over at least 7 years and are felt to be benign. No new pulmonary nodules are visualized. There has been interval removal of the prosthesis/family practice physician. There is evidence of previous right- sided mastectomy. Impression dictated by: Sheldon Ramesh M.D.10/15/2023 4:31 PM Dictation Location: [place] [address] Transcribed By: CHRISTINA 10/15/23 1631 Dictated By: Sheldon Ramesh II, MD 10/15/23 1618 Signed By: 10/15/23 1631 Normal [facility] Creatinine (Bld) [Mass/Vol]O rdered By: Sola Samayoa on 10-15-2023 Creatinine [Mass/Vol] 1.1 mg/dL 0.6-1.3 [facility] Comment on above: ER/ESD physician is notified/shown all ISTAT results.Critical values may be confirmed by laboratory testing ifdeemed necessary by ER attending doctor. ISTAT XRay CREon 10-15-2023 Creatinine [Mass/Vol] 1.1 mg/dL Normal 0.6-1.3 [facility] Comment on above: Result Comment: ER/E SD physician is notified/shown all ISTAT results. Critical values may be confirmed by laboratory testing if deemed necessary by ER attending doctor. Performed By: #### I SCRE #### [facility] [address] [place] [address] ISTAT GFR 55.763 Normal [facility] Comment on above: Result Comment: PERF ORMED BY: [place] [address] PATHOLOGIST BIOPHYSICS SCIENTIST BERENICE HORTA M.D. Performed By: #### I SCRE #### [facility] [address] [place] [address] No Panel InformationOrdered By: Sola Samayoa on 10-15-2023 Bedside Estimated GFR (eGFR) 55.763 [facility] CBC,PLATELETSon 07-15-2023 Hematocrit (Bld) [Volume fraction] 36.7 % Normal 34.9-44.3 [facility] Comment on above: Performed By: #### H EMO #### [facility] (DEFAULT) [address] [address] Hemoglobin (Bld) [Mass/Vol] 12.3 g/dL Normal 11.4-15.2 [facility] Comment on above: Performed By: #### H EMOGC #### [facility] (DEFAULT) [address] [address] MCV (RBC) [Entitic vol] 92.4 fL Normal 79.6-97.7 [facility] Comment on above: Performed By: #### H EMOTONI #### [facility] (DEFAULT) [address] [address] Mean Cell Hgb 31.0 pg Normal 25.9-33.9 [facility] Comment on above: Performed By: #### H EMOTONI #### [facility] (DEFAULT) [address] [address] Mean Cell Hgb Conc 33.5 g/dL Normal 31.4-35.9 [facility] Comment on above: Performed By: #### H EMOTONI #### [facility] (DEFAULT) [address] [address] Platelet mean volume (Bld) [Entitic vol] 10.8 fL Normal 8.5-12.2 [facility] Comment on above: Performed By: #### H EMOTONI #### [facility] (DEFAULT) [address] [address] Platelets (Bld) [#/Vol] 187 10*3/uL Normal 150-393 [facility] Comment on above: Performed By: #### H EMOTONI #### [facility] (DEFAULT) [address] [address] RBC (Bld) [#/Vol] 3.97 10*6/uL Normal 3.91-5.04 [facility] Comment on above: Performed By: #### H EMOGC #### [facility] (DEFAULT) [address] [address] RBC Distribution 13.1 % Normal 10.8-14.9 [facility] Comment on above: Performed By: #### H EMOGC #### [facility] (DEFAULT) [address] [address] WBC (Bld) [#/Vol] 4.43 10*3/uL Normal 3.99-11.19 [facility] Comment on above: Performed By: #### H EMOTONI #### [facility] (DEFAULT) [address] [place] [address] CHEM 6 (LYTES, BUN CREA)on 2022 Anion gap [Moles/Vol] 15 mmol/L Normal 7-17 [facility] Comment on above: Performed By: #### C HM6 #### [facility] (DEFAULT) [address] [place] [address] Chloride [Moles/Vol] 106 mmol/L Normal 98-108 [facility] Comment on above: Performed By: #### C HM6 #### [facility] (DEFAULT) [address] [place] [address] CO2 [Moles/Vol] 27 mmol/L Normal 21-31 [facility] Comment on above: Performed By: #### C HM6 #### [facility] (DEFAULT) [address] [place] [address] Creatinine [Mass/Vol] 0.81 mg/dL Normal 0.50-1.20 [facility] Comment on above: Performed By: #### C HM6 #### [facility] (DEFAULT) [address] [place] [address] GFR/1.73 sq M.predicted among non-blacks MDRD (S/P/Bld) [Vol rate/Area] 81 mL/min/{1.73_m2} Normal >=60 [facility] Comment on above: Result Comment: Repo rted eGFR is based on the CKD-EPI 2020 equation using creatinine, age, and sex. Performed By: #### C HM6 #### [facility] (DEFAULT) [address] [place] [address] Potassium [Moles/Vol] 5.0 mmol/L Normal 3.5-5.0 [facility] Comment on above: Result Comment: Slig htly hemolyzed Performed By: #### C HM6 #### [facility] (DEFAULT) [address] [address] Sodium [Moles/Vol] 143 mmol/L Normal 135-145 [facility] Comment on above: Performed By: #### C HM6 #### [facility] (DEFAULT) [address] [address] Urea nitrogen [Mass/Vol] 18 mg/dL Normal 7-25 [facility] Comment on above: Performed By: #### C HM6 #### [facility] (DEFAULT) [address] [address] Urea nitrogen/Creatinine [Mass ratio] 22 mg/mg Normal [facility] Comment on above: Performed By: #### C HM6 #### [facility] (DEFAULT) [address] [address] SURG PATH REQUESTon 07-15-20 Case Report [facility] Comment on above: Result Comment: Surg ical Pathology Report Case: [id number] Authorizing Provider: Tyrell Daily MD Collected: 07/15/2023 09:04 AM [facility] Received: 07/15/2023 12:17 PM Pathologist: GABINO Willoughby, PhD Specimens: A) - SURG PATH, Left Breast tissue B) - SURG PATH, Right Breast implant for gross C) - SURG PATH, Right Breast Capsule Performed By: #### S URGP #### [facility] (DEFAULT) [address] [address] Clinical History Acquired absence of right breast and nipple. Medical History: Malignant neoplasm of lower-inner quadrant of right breast of female, estrogen receptor positive. History of radiation therapy. Hypothyroidism. Asthma. Normal [facility] Comment on above: Performed By: #### S URGP #### [facility] (DEFAULT) [address] [address] Gross Description [facility] Comment on above: Result Comment: The specimens are received in three properly labeled containers with the patient's name and accession number. A. The specimen is designated left breast tissue and consists of multiple unoriented, irregular fragments of yellow-jacobs, lobulated adipose tissue admixed with skin that weighs 194.4 gm and measure 20.0 x 10.8 x 3.5 cm in aggregate. Two of the fragments display pink-jacobs, focally wrinkled skin. One of the fragments of skin is notable for a well-defined, circular area of jacobs-brown, hyperpigmentation that measures 1.3 cm in diameter. Sectioning reveals the specimen is comprised of approximately 30% white-jacobs, focally dense fibrous tissue and 70% yellow-jacobs, lobulated adipose tissue without discrete lesional tissue identified. Sectioning of the skin within the area of hyperpigmentation reveals the coloration is grossly confined to the dermis, without involvement of the underlying tissue. RS 8 Summary of Cassettes: A1-A7, client services representative fibroadipose tissue; A8, client services representative skin including area of hyperpigmentation B. The specimen is designated right breast implant for gross and consists of a 403.3 gm, 15.0 x 14.5 x 4.5 cm in overall dimension spherical device grossly consistent with a breast implant. The implant is intact, displays smooth, plastic-like outer surfaces, and is filled with translucent, gelatinous material. One side of the specimen displays the following text MENTOR [id number] HP 400 cc. No tissue is present on the specimen and no sections are submitted. This specimen is for gross examination only. (P) C. The specimen is designated right breast capsule and consists of an unoriented, irregular fragment of pink-jacobs, rubbery to fibrous material that measures 11.0 x 9.2 x 0.5 cm. One side of the specimen surface is pink-jacobs and smooth, while the opposing side displays jacobs-brown, ragged to yellow-jacobs, lobulated tissue. Sectioning reveals yellow-jacobs to pink-jacobs, smooth cut surfaces. RS 1 Summary of Cassettes: C1, client services representative cross sections Lab Use Only: JobID [id number] Grosser for this case was: Nancy Laughlin For Immediate Release to Patient's MyChart? Yes Performed By: #### S URGP #### [facility] (DEFAULT) [address] [place] [address] Microscopic Description Normal [facility] Comment on above: Result Comment: A mi croscopic examination was performed. All controls show appropriate reactivity. All immunohistochemistry, in situ hybridization and histochemical tests were developed by and are performed at the [facility], [facility]. All tests reported here, except those addressing HER2, ALK and PD-L1 expression as a predictive marker, have not been cleared by or approved by the FDA. The laboratory is regulated under CLIA as qualified to perform high-complexity testing. The tests are used for clinical purposes. They should not be regarded as investigational or for research. Performed By: #### S URGP #### [facility] (DEFAULT) [address] [address] Pathologic Diagnosis Normal [facility] Comment on above: Result Comment: A. B reast tissue, left, breast reduction: Benign breast parenchyma and skin B. Breast implant, right, gross only: Implant, gross examination only (see gross description for details) C. Breast capsule, right, excision: Benign fibrous tissue with synovial metaplasia, giant cell reactions, focal chronic inflammation, consistent with implant capsule Benign skeletal muscle Comment: Immunohistochemical stains on block C1 for AE1/AE3 and CK7 are negative. Performed By: #### S URGP #### [facility] (DEFAULT) [address] [place] [id number] chest wo con high reson 1 09-07-2022 CT chest wo con high res [facility] [place] [address] CT Scan Report Signed Patient: Malia Cook MR#: [id number] : 1960 Acct:[id number] Age/Sex: 62 / F ADM Date: 07/07/23 Loc: CT Room: Type: [facility] Attending Dr: JASON Reddy APRN Copies to: Sola Samayoa APRN, ACNP-BC Ordering Provider: Sola Samayoa APRN, ACNP-BC Date of Service: 07/07/23 CT/CT chest wo con high res: R05.8, J45.909 CT chest wo con high res 07/07/2023 3:00 PM SIGN AND SYMPTOMS: Shortness of breath, cough, history of breast cancer status post mastectomy TECHNIQUE: Multidetector CT axial slices of the chest were obtained without IV contrast. Multiplanar reformats were performed and viewed on a separate workstation and reviewed to further define anatomy and possible pathology. CT was performed with one or more of the following dose reduction techniques: Automated exposure control, adjustment of the mA and/or kV according to patient size, or use of iterative reconstruction technique. COMPARISON: None.. FINDINGS: Lower neck: Calcifications are noted in the right thyroid bed. Vessels: Atherosclerotic changes are present in the coronary arteries. Mediastinum and Ángela: Within normal limits. Heart: Normal size. No pericardial effusion. Airways: Within normal limits Lungs: There is scarring or atelectasis in the lingula and right middle lobe. There is a 7 mm noncalcified nodule in the right upper lobe laterally on series 11 image 126. There is scarring in the lung apices. There is a 9 mm noncalcified nodule in the left lower lobe on series 11 image 110. There is a 4 mm noncalcified nodule in the left lower lobe there is a 6 mm noncalcified nodule in the lingula on series 11 image 187. On series 11 image 154. There is pleural-based scarring posteriorly along the left lower lobe. Pleura: There is pleural thickening in the right upper chest adjacent to the mastectomy site where the first rib has been previously resected. Chest Wall: There is evidence of prior right mastectomy with evidence of prior reconstruction. Upper Abdomen: Within normal limits. Bones: There is a lytic process within the lateral aspect of the right sixth rib which may represent a metastatic focus. Degenerative changes are noted in the thoracic spine. CT/CT chest wo con high res IMPRESSION: Multiple noncalcified nodules are noted bilaterally suspicious for metastatic disease. The largest of these measures 9 mm in greatest dimension. PET CT may be helpful as these are at the inferior size threshold for PET imaging. There is a lytic process within the lateral aspect of the right sixth rib which may represent a metastatic focus. There is pleural thickening in the right upper chest adjacent to the mastectomy site where the first rib has been previously resected. There is evidence of prior right mastectomy with evidence of prior reconstruction. Impression dictated by: Sheldon Ramesh M.D.07/08/2023 10:53 AM Dictation Location: [place] [address] Transcribed By: CHRISTINA 07/08/23 1053 Dictated By: Sheldon Ramesh II, MD 07/08/23 1031 Signed By: 07/08/23 1053 Normal [facility] MG Breast Viewson 01-27-2023 IMPRESSION: No specific mammographic evidence of malignancy. BI-RADS: 2: Benign Recommendation: Routine mammography. Recommendation Laterality: Left OLOGY EXAM: MAMMO DIAGNOST IC WITH KATHY LEFT, 01/27/2023 14:07 PM CLINICAL INDICATIONS: Patient's had prior right invasive carcinoma with mastectomy and reduction on the left. COMPARISON: Mammogram September 09, 2018 TECHNIQUE: 2-D MLO and CC views were obtained of the left breast. 3-D MLO and CC digital tomosynthesis images were also acquired. Computer aided detection was utilized. FINDINGS: The breast is heterogeneously dense, which may obscure small masses. Benign calcs patient is status post right mastectomy. Stable postsurgical changes consistent with left breast reduction are noted. There are no new suspicious masses, calcifications, or architectural distortions. RADIOLOGY Gladys Watters DO - 01/27/2023 EXAM: MAMMO DIAGNOSTIC WITH KATHY LEFT, 01/27/2023 14:07 PM CLINICAL INDICATIONS: Patient's had prior right invasive carcinoma with mastectomy and reduction on the left. COMPARISON: Mammogram September 09, 2018 TECHNIQUE: 2-D MLO and CC views were obtained of the left breast. 3-D MLO and CC digital tomosynthesis images were also acquired. Computer aided detection was utilized. FINDINGS: The breast is heterogeneously dense, which may obscure small masses. Benign calcs patient is status post right mastectomy. Stable postsurgical changes consistent with left breast reduction are noted. There are no new suspicious masses, calcifications, or architectural distortions. IMPRESSION IMPRESSION: No specific mammographic evidence of malignancy. BI-RADS: 2: Benign Recommendation: Routine mammography. Recommendation Laterality: Left [facility] Radiology Study observation (narrative) [facility] MG Breast ViewsOrdered By: Sahra Watters on 01-27-2023 [facility] Work Phone: BONE DENSITY AXIAL (HIP, PEL VIS, SPINE)on 08-12-2022 IMPRESSION: Based on BMD and WHO criteria diagnosis is consistent with osteopenia. * The T-score reflects standard deviations above (+) or below (-) a 20-40 year-old, , female, [place] population. At this age, it is assumed that peak bone mass is reached. * The Z-score reflects standard deviations above (+) or below (-) an age, sex, ethnicity, and weight-matched population. * Osteoporosis is defined as a skeletal disorder characterized by compromised bone strength predisposing to an increased risk of fracture. Bone strength reflects the integration of two main features: BMD and bone quality (ZION 2001;285:785-795). Any history of fragility fracture is suggestive of osteoporosis, regardless of the BMD data acquired in this study. * Secondary causes of bone loss should be evaluated if clinically indicated as the etiology of low BMD cannot be determined by BMD measurement alone. The physician who interpreted this study is a Certified Clinical Guidance And Control System Engineer by the International Society of Clinical Densitometry Fam Watson DO, CCD. OLOGY EXAM: BONE DENSITY AXIAL (HIP, PELVIS, SPINE) 08/12/2022 09:40 AM TECHNIQUE: DXA scanning using a [employer] Advance bone densitometer at the [facility] was performed on 08/12/2022 09:40 AM CLINICAL INDICATIONS: Patient on AI; postmenopausal RELEVANT CLINICAL HISTORY: C50.311:Malignant neoplasm of lower-inner quadrant of right breast of female, estrogen receptor positive Z17.0:Malignant neoplasm of lower-inner quadrant of right breast of female, estrogen receptor positive Patient on AI; postmenopausal; COMPARISON: There are no prior studies performed on this bone densitometer with which to make comparison. FINDINGS: 1. Quality of the examination at the L1-4 lumbar spine: Adequate. 2. Quality of the examination at the dual hip: Adequate. BONE MINERAL DENSITY (BMD) CURRENT BONE MINERAL DENSITY (BMD) Region: g/cm2 T-Score Lumbar 1-4 Spine: 1.042 -1.1 Left Femoral Neck: 0.910 -0.9 Left Total Hip: 0.959 -0.4 Right Femoral Neck: 0.876 -1.2 Right Total Hip: 0.924 -0.7 RADIOLOGY Fam Watson DO - 08/12/2022 EXAM: BONE DENSITY AXIAL (HIP, PELVIS, SPINE) 08/12/2022 09:40 AM TECHNIQUE: DXA scanning using a [employer] Advance bone densitometer at the [facility] was performed on 08/12/2022 09:40 AM CLINICAL INDICATIONS: Patient on AI; postmenopausal RELEVANT CLINICAL HISTORY: C50.311:Malignant neoplasm of lower-inner quadrant of right breast of female, estrogen receptor positive Z17.0:Malignant neoplasm of lower-inner quadrant of right breast of female, estrogen receptor positive Patient on AI; postmenopausal; COMPARISON: There are no prior studies performed on this bone densitometer with which to make comparison. FINDINGS: 1. Quality of the examination at the L1-4 lumbar spine: Adequate. 2. Quality of the examination at the dual hip: Adequate. BONE MINERAL DENSITY (BMD) CURRENT BONE MINERAL DENSITY (BMD) Region: g/cm2 T-Score Lumbar 1-4 Spine: 1.042 -1.1 Left Femoral Neck: 0.910 -0.9 Left Total Hip: 0.959 -0.4 Right Femoral Neck: 0.876 -1.2 Right Total Hip: 0.924 -0.7 IMPRESSION IMPRESSION: Based on BMD and WHO criteria diagnosis is consistent with osteopenia. * The T-score reflects standard deviations above (+) or below (-) a 20-40 year-old, , female, [place] population. At this age, it is assumed that peak bone mass is reached. * The Z-score reflects standard deviations above (+) or below (-) an age, sex, ethnicity, and weight-matched population. * Osteoporosis is defined as a skeletal disorder characterized by compromised bone strength predisposing to an increased risk of fracture. Bone strength reflects the integration of two main features: BMD and bone quality (ZION 2001;285:785-795). Any history of fragility fracture is suggestive of osteoporosis, regardless of the BMD data acquired in this study. * Secondary causes of bone loss should be evaluated if clinically indicated as the etiology of low BMD cannot be determined by BMD measurement alone. The physician who interpreted this study is a Certified Clinical Guidance And Control System Engineer by the International Society of Clinical Densitometry Fam Watson DO, CCD. [facility] Radiology Study observation (narrative) [facility] BONE DENSITY AXIAL (HIP, PEL VIS, SPINE)Ordered By: Fam Watson on 08-12-2022 [facility] Work Phone: CONTINUOUS CARDIAC MONITORIN G STRIPon 04-10-2022 [facility] CONTINUOUS CARDIAC MONITORIN G STRIPOrdered By: Unassigned Pacs on 04-10-2022 [facility] Work Phone: IMPLANT RECORD (SCANNED)on 0 04-10-2022 [facility] NM Lymphatic vessels Views W radionuclide intra lymphaticon 04-10-2022 IMPRESSION: Radiopharmaceutical administration for the identification of sentinel lymph nodes for subsequent intraoperative removal with gamma probe guidance. OLOGY EXAM: NUC BREAST/LYM PH GLAND INJECTION, 04/10/2022 07:26 AM CLINICAL INDICATIONS: 61-year-old woman with breast cancer. This radiopharmaceutical administration is for the identification of sentinel lymph nodes for subsequent intraoperative removal with gamma probe guidance. TECHNIQUE: Utilizing aseptic technique, 484 microcuries of Tc-99m filtered sulfur colloid in 0.4 mL of normal saline was injected intradermally in the right breast by Dr. Smallwood in anticipation of the intraoperative gamma probe localization of draining lymphatics/lymph nodes. RADIOLOGY Aj Francisco MD, PhD - 04/10/2022 EXAM: NUC BREAST/LYMPH GLAND INJECTION, 04/10/2022 07:26 AM CLINICAL INDICATIONS: 61-year-old woman with breast cancer. This radiopharmaceutical administration is for the identification of sentinel lymph nodes for subsequent intraoperative removal with gamma probe guidance. TECHNIQUE: Utilizing aseptic technique, 484 microcuries of Tc-99m filtered sulfur colloid in 0.4 mL of normal saline was injected intradermally in the right breast by Dr. Smallwood in anticipation of the intraoperative gamma probe localization of draining lymphatics/lymph nodes. IMPRESSION IMPRESSION: Radiopharmaceutical administration for the identification of sentinel lymph nodes for subsequent intraoperative removal with gamma probe guidance. [facility] Radiology Study observation (narrative) [facility] NM Lymphatic vessels Views W radionuclide intra lymphaticOrdered By: Aj Francisco on 04-10-2022 [facility] Work Phone: SPECT Heart perfusion at res t and W stress and W radionuclide IVOrdered By: Polina Salvador on 03-18-2022 % APHRMAX 81 % [facility] Work Phone: APHRMAX 157 bpm [facility] Work Phone: Baseline DBP 80 mmHg [facility] Work Phone: Baseline DBP 86 mmHg [facility] Work Phone: Baseline HR 80 bpm [facility] Work Phone: Baseline HR 82 bpm [facility] Work Phone: Baseline SBP 132 mmHg [facility] Work Phone: Baseline SBP 118 mmHg [facility] Work Phone: Body surface area Derived from formula 1.67 m2 [facility] Work Phone: chronotropic augmentation 59 [facility] Work Phone: Exercise duration (min) 4 min [facility] Work Phone: Exercise duration (sec) 0 sec [facility] Work Phone: NM ED vol idx 44.31 mL/m2 [facility] Work Phone: NM ES vol idx 15.56 mL/m2 [facility] Work Phone: Nuc Stress EF 65 % [facility] Work Phone: Peak DBP 80 mmHg [facility] Work Phone: Peak HR 127 bpm [facility] Work Phone: Peak SBP 150 mmHg [facility] Work Phone: Rate Pressure Product [id number] [facility] Work Phone: [facility] Work Phone: SPECT Heart perfusion at res t and W stress and W radionuclide Yuki 03-18-2022 Addendum by Polina Salvador MD on 03/18/2022 1:36 PM EDT Lexiscan Stress myocardial perfusion scan within normal limits. No evidence of ischemia. No evidence of prior myocardial injury. Normal left ventricular systolic function ( LVEF 65% ). There is hot spot in the infero-medial left breast. Study Details Pharmacological nuclear stress test performed using 1-day rest/stress protocol. Regadenoson infusion given over 10 seconds. Resting Single-Photon Emission Computed Tomography (SPECT) three axis myocardial perfusion images of the heart were acquired with an acquisition time of 09:53 EDT. Post-stress Single-Photon Emission Computed Tomography (SPECT) three axis myocardial perfusion images of the heart were acquired with an acquisition time of 12:11 EDT. Gated SPECT images obtained. Frame rate: 8 frames/sec. Stress prone images were obtained. Imaging system used: [facility]. Stress Findings A pharmacological stress test was performed using regadenoson without low-level exercise. The patient reported no symptoms prior to the stress test. The patient reported dizziness, shortness of breath and stomach discomfort during the stress test. The patient reached the end of the protocol. All symptoms resolved in recovery. At rest, the ECG is NSR with NS ST and TW changes. No angina or ECG changes with Lexiscan infusion. NEGATIVE LEXISCAN STRESS ECG. ECG Baseline ECG is normal. Baseline ECG shows non-specific ST-T wave abnormalities consistent with ST depression. Stress ECG is unchanged from baseline. There was no ST segment deviation noted during stress. Recovery ECG returned to baseline. Negative pharm stress test. Nuclear Study Quality Overall image quality is good. Subdiaphragmatic activity artifact was visualized. Nuclear Prior Study There is no prior study available for comparison. Isotope Admin The isotope used for nuclear imaging was technetium sestamibi.No radiopharmaceutical dose was extravasated. Nuclear Stress Gating Stress perfusion cavity size was 65 mL. Resting perfusion cavity size was 63 mL. The stress/rest perfusion ratio is 1.03. There is no evidence of transient ischemic dilation (TID). Ejection fraction is 65%. End diastolic index is 44.31 mL/m2. End systolic index is 15.56 mL/m2. The lung to heart ratio is 0.41. Wall Motion Stress Summed Score: 0 Percent Normal: 0.00% The left ventricular perfusion is normal. Wall Motion Resting Summed Score: 0 Percent Normal: 0.00% The left ventricular perfusion is normal. [facility] Radiology Study observation (narrative) [facility] MR Breast - bilateral WO and W contrast IVOrdered By: Wei Robertson on 02-27-2022 Interpretation and review of laboratory results Abnormal [facility] Work Phone: [facility] Work Phone: MR Breast - bilateral WO and W contrast Yuki 02-27-2022 IMPRESSION: 1. Biopsy proven malignancy in the inferior right breast as described. Continued clinical management recommended. 2. No MR evidence of malignancy in the left breast. Bi-RADS: 6: Known biopsy proven malignancy Recommendation: Surgical excision when clinically appropriate. Recommendation Laterality: Right OLOGY EXAM: MRI BREAST BILATERAL WITH AND WITHOUT CONTRAST, 02/27/2022 09:49 AM CLINICAL INDICATIONS: New diagnosis of right breast malignancy consisting of invasive carcinoma with mixed ductal and lobular features. Pretreatment evaluation. COMPARISON: Mammogram and ultrasound May 18, 2022, January 20, 2022, February 24, 2022 TECHNIQUE: Axial BLADE (STIR), axial noncontrast T1- weighted, axial dynamic pre- and postcontrast fat-suppressed T1-weighted, delayed postcontrast high-resolution sagittal fat-suppressed T1-weighted images were obtained. Serial subtraction images were generated during post-processing. The images were analyzed on the [employer] CAD software package on an independent workstation. FINDINGS: Amount of fibroglandular tissue: heterogenous fibroglandular tissue. Background parenchymal enhancement: moderate symmetric. The right breast biopsy-proven malignancy is identified in the inferior central and inferior medial aspects consisting of a good: Irregular poorly marginated mass. Associated tissue marker is noted. This mass measures 4.5 x 2.9 x 3.0 cm. The mass does not appear to abut or invade the chest wall There are scattered benign cysts in the left breast. There is no dominant mass, architectural distortion or area of suspicious enhancement in the left breast. Axilla: There is no axillary lymphadenopathy. Internal Mammary Chain: There is no internal mammary lymphadenopathy. Extramammary soft tissues: Unremarkable. RADIOLOGY Wei Robertson MD - 02/27/2022 EXAM: MRI BREAST BILATERAL WITH AND WITHOUT CONTRAST, 02/27/2022 09:49 AM CLINICAL INDICATIONS: New diagnosis of right breast malignancy consisting of invasive carcinoma with mixed ductal and lobular features. Pretreatment evaluation. COMPARISON: Mammogram and ultrasound May 18, 2022, January 20, 2022, February 24, 2022 TECHNIQUE: Axial BLADE (STIR), axial noncontrast T1- weighted, axial dynamic pre- and postcontrast fat-suppressed T1-weighted, delayed postcontrast high-resolution sagittal fat-suppressed T1-weighted images were obtained. Serial subtraction images were generated during post-processing. The images were analyzed on the [employer] CAD software package on an independent workstation. FINDINGS: Amount of fibroglandular tissue: heterogenous fibroglandular tissue. Background parenchymal enhancement: moderate symmetric. The right breast biopsy-proven malignancy is identified in the inferior central and inferior medial aspects consisting of a good: Irregular poorly marginated mass. Associated tissue marker is noted. This mass measures 4.5 x 2.9 x 3.0 cm. The mass does not appear to abut or invade the chest wall There are scattered benign cysts in the left breast. There is no dominant mass, architectural distortion or area of suspicious enhancement in the left breast. Axilla: There is no axillary lymphadenopathy. Internal Mammary Chain: There is no internal mammary lymphadenopathy. Extramammary soft tissues: Unremarkable. IMPRESSION IMPRESSION: 1. Biopsy proven malignancy in the inferior right breast as described. Continued clinical management recommended. 2. No MR evidence of malignancy in the left breast. Bi-RADS: 6: Known biopsy proven malignancy Recommendation: Surgical excision when clinically appropriate. Recommendation Laterality: Right [facility] Radiology Study observation (narrative) [facility] CBC,PLATELETSon 02-24-2022 Erythrocyte distribution width (RBC) [Ratio] 12.1 % 10.8 - 14.9 % [facility] Hematocrit (Bld) [Volume fraction] 40.7 % 34.9 - 44.3 % [facility] Hemoglobin (Bld) [Mass/Vol] 13.4 g/dL 11.4 - 15.2 g/dL [facility] Interpretation and review of laboratory results Abnormal [facility] MCH (RBC) [Entitic mass] 32.2 pg 25.9 - 33.9 pg [facility] MCHC (RBC) [Mass/Vol] 32.9 g/dL 31.4 - 35.9 g/dL [facility] MCV (RBC) [Entitic vol] 97.8 fL High 79.6 - 97.7 fL [facility] Platelet mean volume (Bld) [Entitic vol] 11.5 fL 8.5 - 12.2 fL [facility] Platelets (Bld) [#/Vol] 196 10*3/uL 150 - 393 K/uL [facility] RBC (Bld) [#/Vol] 4.16 10*6/uL [facility] WBC (Bld) [#/Vol] 4.25 10*3/uL 3.99 - 11. 19 K/uL [facility] COMPREHENSIVE METABOLIC PANE Alfred 02-24-2022 Albumin [Mass/Vol] 4.7 g/dL 3.5 - 5.0 g/dL [facility] ALP [Catalytic activity/Vol] 72 U/L 32 - 126 U/L [facility] ALT [Catalytic activity/Vol] 18 U/L 9 - 48 U/L [facility] Anion gap [Moles/Vol] 11 mmol/L 7 - 17 mmol/L [facility] AST [Catalytic activity/Vol] 21 U/L 10 - 39 U/L [facility] Bilirubin [Mass/Vol] 0.5 mg/dL <1.5 [facility] Calcium [Mass/Vol] 10.0 mg/dL 8.6 - 10. 5 mg/dL [facility] Chloride [Moles/Vol] 106 mmol/L 98 - 10 8 mmol/L [facility] CO2 [Moles/Vol] 29 mmol/L 21 - 31 mmol/L [facility] Creatinine [Mass/Vol] 0.76 mg/dL 0.50 - 1.20 mg/dL [facility] GFR/1.73 sq M.predicted CKD-EPI (S/P/Bld) [Vol rate/Area] 88 >=60 mL/min/1.73m 2 [facility] Comment on above: Reported eGFR is bas ed on the CKD-EPI 2020 equation using creatinine, age, and sex. Glucose [Mass/Vol] 99 mg/dL 70 - 99 mg/dL [facility] Osmolality Calc [Osmolality] 296 [facility] Potassium [Moles/Vol] 3.9 mmol/L 3.5 - 5.0 mmol/L [facility] Protein [Mass/Vol] 7.4 g/dL 6.4 - 8.3 g/dL [facility] Sodium [Moles/Vol] 142 mmol/L 135 - 145 mmol/L [facility] Urea nitrogen [Mass/Vol] 12 mg/dL 7 - 25 mg/dL [facility] Urea nitrogen/Creatinine [Mass ratio] 16 mg/mg [facility] No Panel InformationOrdered By: Wei Robertson on 02-24-2022 Interpretation and review of laboratory results Abnormal [facility] Work Phone: [facility] Work Phone: No Panel Informationon 02-24 IMPRESSION: 1. Biopsy-proven malignancy with measurements as described above. 2. Normal appearance of the right axilla. BI-RADS: 6: Known biopsy proven malignancy Recommendation: Surgical excision when clinically appropriate. Recommendation Laterality: Right OLOGY EXAM: US BREAST LIMITED UNILATERAL RIGHT, US AXILLA FOR MAMMOGRAPHY RIGHT, 02/24/2022 10:44 AM (accession [id number]), 02/24/2022 10:45 AM (accession [id number]) CLINICAL INDICATIONS: New right breast malignancy 5 o'clock, request for axillary evaluation as well. COMPARISON: January 15, 2022, January 20, 2022 TECHNIQUE: Multiple real-time peña-scale images of the right axilla and right breast in the 5 o'clock axis are performed. Color Doppler was used to assess vascular flow. FINDINGS: The biopsy-proven malignancy and associated clip is again demonstrated at the 5:00 zone 2 position. This consists of a markedly irregular ill-defined hypoechoic mass which on today's exam measures approximately 4.7 x 2.7 x 4.5 cm. Clip is noted within the mass. Evaluation of the right axilla demonstrates 2 lymph nodes with maintained normal morphology. No suspicious axillary lymph nodes are identified. RADIOLOGY Wei Robertson MD - 02/24/2022 EXAM: US BREAST LIMITED UNILATERAL RIGHT, US AXILLA FOR MAMMOGRAPHY RIGHT, 02/24/2022 10:44 AM (accession [id number]), 02/24/2022 10:45 AM (accession [id number]) CLINICAL INDICATIONS: New right breast malignancy 5 o'clock, request for axillary evaluation as well. COMPARISON: January 15, 2022, January 20, 2022 TECHNIQUE: Multiple real-time peña-scale images of the right axilla and right breast in the 5 o'clock axis are performed. Color Doppler was used to assess vascular flow. FINDINGS: The biopsy-proven malignancy and associated clip is again demonstrated at the 5:00 zone 2 position. This consists of a markedly irregular ill-defined hypoechoic mass which on today's exam measures approximately 4.7 x 2.7 x 4.5 cm. Clip is noted within the mass. Evaluation of the right axilla demonstrates 2 lymph nodes with maintained normal morphology. No suspicious axillary lymph nodes are identified. IMPRESSION IMPRESSION: 1. Biopsy-proven malignancy with measurements as described above. 2. Normal appearance of the right axilla. BI-RADS: 6: Known biopsy proven malignancy Recommendation: Surgical excision when clinically appropriate. Recommendation Laterality: Right [facility] Axilla - righton 02-25-20 Radiology Study observation (narrative) [facility] Breast - right limitedon 02-24-2022 Radiology Study observation (narrative) [facility] XR Chest PA and Lateralon IMPRESSION: No acute cardiopulmonary disease OLOGY EXAM: XR CHEST PA AN D LATERAL, 02/24/2022 11:15 AM COMPARISON: No prior studies available for comparison. CLINICAL INDICATIONS: pre op testing RELEVANT CLINICAL HISTORY: Z01.818:Pre-op testing FINDINGS: (Adequate technique) Implanted Devices: None Lungs: Clear, without mass, interstitial disease, or consolidation. Pleural Spaces: No pleural effusion. No pneumothorax. Mediastinum and Ángela: Normal Cardiac silhouette and great vessels: Normal heart size. Unremarkable aorta. Chest Wall: Normal RADIOLOGY Page Elizabeth, [facility] - 02/24/2022 EXAM: XR CHEST PA AND LATERAL, 02/24/2022 11:15 AM COMPARISON: No prior studies available for comparison. CLINICAL INDICATIONS: pre op testing RELEVANT CLINICAL HISTORY: Z01.818:Pre-op testing FINDINGS: (Adequate technique) Implanted Devices: None Lungs: Clear, without mass, interstitial disease, or consolidation. Pleural Spaces: No pleural effusion. No pneumothorax. Mediastinum and Ángela: Normal Cardiac silhouette and great vessels: Normal heart size. Unremarkable aorta. Chest Wall: Normal IMPRESSION IMPRESSION: No acute cardiopulmonary disease [facility] Radiology Study observation (narrative) [facility] XR Chest PA and LateralOrder ed By: Page Elizabeth on 02-24-2022 [facility] Work Phone: MG Breast Viewson 02-18-2022 IMPRESSION: Biopsy-proven carcinoma in the 5:00 right breast as described above. OLOGY EXAM: BREAST IMAGING SECOND OPINION READING, 02/18/2022 09:07 AM CLINICAL INDICATIONS: The patient presents to the surgical clinic of Dr. Smallwood for evaluation. The patient originally presented to an outside institution in December 2021 for further evaluation of a palpable right breast lump. The patient underwent a bilateral diagnostic mammogram and right breast ultrasound which identified a suspicious right breast mass for which ultrasound-guided biopsy was suggested. 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 Requested evaluation of outside breast imaging. COMPARISON: Bilateral diagnostic mammogram with tomosynthesis January 15, 2022. Right breast ultrasound January 15, 2022. Postbiopsy mammogram of the right breast January 20, 2022. Remote mammograms from September 09, 2018 was reviewed for comparative purposes. MAMMOGRAM FINDINGS: The breasts have scattered areas of fibroglandular density. With regard to bilateral diagnostic mammogram of January 15, 2022 in the lower inner right breast there is an irregularly-shaped isodense mass with spiculated margins and associated architectural distortion. There is some retraction of the skin in the lower pole the right breast. Mammographically the central core of the mass measures approximately 4.5 x 2.9 x 3.0 cm. No additional definitive dominant mass, distortion, or suspicious Patricio calcification either breast. With regard to the postbiopsy mammogram of January 20, 2022 there is a appropriately positioned biopsy clip at the inferolateral aspect of the mass. ULTRASOUND FINDINGS: With regard to the right breast ultrasound of January 15, 2022 in the 11:00 position of the right breast approximately 3.2 cm from the nipple there is an irregular shaped hypoechoic mass with spiculated margins and associated vascular flow. The outside institution measures the mass at 4.5 x 1.8 x 1.5 cm. The latter 2 of the 3 measurements appear to underestimate the size of the mass. RADIOLOGY Biju Blum M D - 02/18/2022 EXAM: BREAST IMAGING SECOND OPINION READING, 02/18/2022 09:07 AM CLINICAL INDICATIONS: The patient presents to the surgical clinic of Dr. Smallwood for evaluation. The patient originally presented to an outside institution in December 2021 for further evaluation of a palpable right breast lump. The patient underwent a bilateral diagnostic mammogram and right breast ultrasound which identified a suspicious right breast mass for which ultrasound-guided biopsy was suggested. 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 Requested evaluation of outside breast imaging. COMPARISON: Bilateral diagnostic mammogram with tomosynthesis January 15, 2022. Right breast ultrasound January 15, 2022. Postbiopsy mammogram of the right breast January 20, 2022. Remote mammograms from September 09, 2018 was reviewed for comparative purposes. MAMMOGRAM FINDINGS: The breasts have scattered areas of fibroglandular density. With regard to bilateral diagnostic mammogram of January 15, 2022 in the lower inner right breast there is an irregularly-shaped isodense mass with spiculated margins and associated architectural distortion. There is some retraction of the skin in the lower pole the right breast. Mammographically the central core of the mass measures approximately 4.5 x 2.9 x 3.0 cm. No additional definitive dominant mass, distortion, or suspicious Patricio calcification either breast. With regard to the postbiopsy mammogram of January 20, 2022 there is a appropriately positioned biopsy clip at the inferolateral aspect of the mass. ULTRASOUND FINDINGS: With regard to the right breast ultrasound of January 15, 2022 in the 11:00 position of the right breast approximately 3.2 cm from the nipple there is an irregular shaped hypoechoic mass with spiculated margins and associated vascular flow. The outside institution measures the mass at 4.5 x 1.8 x 1.5 cm. The latter 2 of the 3 measurements appear to underestimate the size of the mass. IMPRESSION IMPRESSION: Biopsy-proven carcinoma in the 5:00 right breast as described above. [facility] Radiology Study observation (narrative) [facility] MG Breast ViewsOrdered By: Chloe Blum on 02-18-2022 [facility] Work Phone: US VAC ASST BX BRST RT W CLI Anton 01-29-2022 US VAC ASST BX BRST RT W CLIP Begin Addendum #1 COLLECTED DATE/TIME: 01/20/2022 08:38 EDT Final Diagnosis Report for [facility] [place], [place] RIGHT BREAST SPICULATED MASS AT 5 O'CLOCK, ULTRASOUND GUIDED CORE BIOPSY: -INVASIVE CARCINOMA WITH MIXED DUCTAL AND LOBULAR FEATURES, GRADE 1. 01/27/[address] Tay Haywood. Verified with Caitlyn that report was present in office. Original Report PROCEDURE: ULTRASOUND BIOPSY VACCUUM ASSISTED RIGHT WITH CLIP COMPARISON: MG MAMM RC DIAG W CAD, 01/15/2022. US BREAST RIGHT LIMITED, 01/15/2022. lNDICATlONS: Spiculated lesion. DESCRIPTION: After obtaining informed consent, a vacuum assisted ultrasound-guided biopsy was performed in the usual sterile manner, The location of the biopsy was then marked as indicated below. FINDINGS: RECOMMENDATIONS: SPECIMEN#, LOCATION: 3 core samples, geographic shaped hypoechoic spiculated mass 5 o'clock position. BIOPSY NEEDLE : 13 gauge Elite vacuum core biopsy needle. MARKERS (S) PLACED: A single metallic marker was placed in the appropriate targeted location. MEDICATION: Buffered 1% lidocaine with epinephrine administered locally. COMPLICATIONS: None. PATHOLOGY LAB: Pending. CONCLUSION: 1. Uneventful ultrasound-guided breast biopsy. 2. Pathology results are pending. An addendum to this report will be provided after pathology results are available. Normal [facility] MAMMO POST BIOPSY RIGHTon MAMMO POST BIOPSY RIGHT Patient: MALIA COOK Exam Date: 01/20/2022 : 1960 Gender:F Ordering : DR TUCKER HAYWOOD M.D. Admission #: [id number] Family : Order #: [id number] CLICK HERE TO VIEW EXAM RADIOLOGY REPORT PROCEDURE: MAMMOGRAM POST BIOPSY IMAGES COMPARISON: MG MAMM RC DIAG W CAD, 01/15/2022. US BREAST RIGHT LIMITED, 01/15/2022. MAMMO RC SCREEN W CAD DIG, 10/04/2012. INDICATIONS: Spiculated lesion BREAST COMPOSITION: FINDINGS: BIOPSY MARKER: A metallic marker has been placed in the targeted location within the lower-inner quadrant of the right breast. BREAST FINDINGS: Expected post biopsy findings. RECOMMENDATIONS: Dictated by: Antonio Arthur M.D. on 01/20/2022 at 11:12 Approved by: Antonio Arthur M.D. on 01/20/2022 at 11:49 Normal [facility] MG MAMM RC DIAG W CADon MG MAMM RC DIAG W CAD Patient: MALIA COOK Exam Date: 01/15/2022 : 1960 Gender:F Ordering : DR TUCKER HAYWOOD M.D. Admission #: [id number] Family : Order #: [id number] CLICK HERE TO VIEW EXAM RADIOLOGY REPORT PROCEDURE: MAMMOGRAM BILATERAL DIAGNOSTIC DIGITAL WITH COMPUTER AIDED DETECTION, 01/15/2022, 09:51 ULTRASOUND BREAST RIGHT LIMITED, 01/15/2022, 10:29 COMPARISON: MG MAMM RC DIAG W CAD, 09/09/2018. INDICATIONS: Lump in right breast Calculator Name NCI Breast Cancer Risk Assessment Tool 5 Year Breast Cancer Risk 1.20% Lifetime Breast Cancer Risk 5.20% Personal Breast Cancer No Personal Ovarian Cancer No Treatments None Family Cancers Sister with colon cancer at age 48. LOCATION: [facility] BREAST COMPOSITION: Extremely dense, which lowers the sensitivity of mammography. FINDINGS: DIAGNOSTIC CATEGORY 5--HIGHLY SUGGESTIVE OF MALIGNANCY. HIGH PROBABILITY OF MALIGNANCY BASED ON THE FOLLOWING: RIGHT BREAST: Macro lobulated spiculated opacity within the posterior lower inner quadrant corresponding to patient's palpable lump. Ultrasound evaluation demonstrates a 4.5 x 1.8 x 1.5 cm lobular, spiculated, heterogeneous mass at the 5 o'clock position, 3.2 cm from the nipple, concerning for malignancy. Ultrasound-guided tissue sampling is recommended. Findings, recommendations, and alternatives were discussed with the patient. Our radiology department nurse will contact patient to medical research assistant scheduling biopsy. LEFT BREAST: No significant suspicious finding. Interval decrease in size of previously seen simple cyst. Stable appearance of small nodule within anterior lower-outer quadrant. Annual screening mammography is recommended. RECOMMENDATIONS: ULTRASOUND-GUIDED CORE BIOPSY: RIGHT BREAST PLEASE NOTE: A NORMAL MAMMOGRAM DOES NOT EXCLUDE THE POSSIBILITY OF BREAST CANCER. A CLINICALLY SUSPICIOUS PALPABLE LUMP SHOULD BE BIOPSIED. Dictated by: Antonio Arthur M.D. on 01/15/2022 at 10:56 Approved by: Antonio Arthur M.D. on 01/15/2022 at 11:14 Normal [facility] US BREAST RIGHT LIMITEDon US BREAST RIGHT LIMITED Patient: MALIA COOK Exam Date: 01/15/2022 : 1960 Gender:F Ordering : DR TUCKER HAYWOOD M.D. Admission #: [id number] Family : Order #: [id number] CLICK HERE TO VIEW EXAM RADIOLOGY REPORT PROCEDURE: MAMMOGRAM BILATERAL DIAGNOSTIC DIGITAL WITH COMPUTER AIDED DETECTION, 01/15/2022, 09:51 ULTRASOUND BREAST RIGHT LIMITED, 01/15/2022, 10:29 COMPARISON: MG MAMM RC DIAG W CAD, 09/09/2018. INDICATIONS: Lump in right breast Calculator Name NCI Breast Cancer Risk Assessment Tool 5 Year Breast Cancer Risk 1.20% Lifetime Breast Cancer Risk 5.20% Personal Breast Cancer No Personal Ovarian Cancer No Treatments None Family Cancers Sister with colon cancer at age 48. LOCATION: [facility] BREAST COMPOSITION: Extremely dense, which lowers the sensitivity of mammography. FINDINGS: DIAGNOSTIC CATEGORY 5--HIGHLY SUGGESTIVE OF MALIGNANCY. HIGH PROBABILITY OF MALIGNANCY BASED ON THE FOLLOWING: RIGHT BREAST: Macro lobulated spiculated opacity within the posterior lower inner quadrant corresponding to patient's palpable lump. Ultrasound evaluation demonstrates a 4.5 x 1.8 x 1.5 cm lobular, spiculated, heterogeneous mass at the 5 o'clock position, 3.2 cm from the nipple, concerning for malignancy. Ultrasound-guided tissue sampling is recommended. Findings, recommendations, and alternatives were discussed with the patient. Our radiology department nurse will contact patient to medical research assistant scheduling biopsy. LEFT BREAST: No significant suspicious finding. Interval decrease in size of previously seen simple cyst. Stable appearance of small nodule within anterior lower-outer quadrant. Annual screening mammography is recommended. RECOMMENDATIONS: ULTRASOUND-GUIDED CORE BIOPSY: RIGHT BREAST PLEASE NOTE: A NORMAL MAMMOGRAM DOES NOT EXCLUDE THE POSSIBILITY OF BREAST CANCER. A CLINICALLY SUSPICIOUS PALPABLE LUMP SHOULD BE BIOPSIED. Dictated by: Antonio Arthur M.D. on 01/15/2022 at 10:56 Approved by: Antonio Arthur M.D. on 01/15/2022 at 11:[address] [facility] TSHon 06-16-2021 TSH 2.474 uIU/mL Normal 0.470-4.680 [facility] Comment on above: Performed By: #### T SH #### [facility] [address] [place] [address] Dr. Shantanu Lucas TSH RANGE SEE BELOW Normal [facility] Comment on above: Result Comment: <0.3 4 UIU/ml HYPERTHYROID 0.34-5.60 UIU/ml EUTHYROID >5.60 UIU/ml HYPOTHYROID Performed By: #### T SH #### [facility] [address] [place] [address] Dr. Shantanu Lucas VIT B12 AND FOLATEon 021 Cobalamin (Vitamin B12) [Mass/Vol] pg/mL Critically high 239.0-931.0 [facility] Comment on above: Performed By: #### B 12FOL #### [facility] [address] [address] [address] Shantanu Lucas FOLATE >20.00 Normal >=2.76 [facility] Comment on above: Performed By: #### B 12FOL #### [facility] [address] [place] [address] Dr. Shantanu Lucas Vital Signs Date Time Vital Sign Value Performing Clinician Facility 01-21-2024 08:35-0400 Body height 160 cm Bret ETIENNENEON Concierge Work Phone: [facility] 01-21-2024 08:35-0400 Body mass index (BMI) [Ratio] 24.8 kg/m2 Bret ETIENNE-C Work Phone: [facility] 01-21-2024 08:35-0400 Body weight 63.5 kg Bret ETIENNE-lettrs Work Phone: [facility] 09-08-2023 12:41-0500 Body mass index (BMI) [Ratio] 24.02 kg/m2 Tyrell Daily MD Work Phone: [facility] 09-08-2023 12:41-0500 Body temperature 97.39 [degF] Tyrell Daily MD Work Phone: [facility] 09-08-2023 12:41-0500 Body weight 61.51 kg Tyrell Daily MD Work Phone: [phone](325)[phone] [address] 09-08-2023 12:41-0500 Diastolic blood pressure 75 mm[Hg] Tyrell Daily MD Work Phone: [facility] 09-08-2023 12:41-0500 Heart rate 74 /min Tyrell Daily MD Work Phone: [facility] 09-08-2023 12:41-0500 Respiratory rate 12 /min Tyrell Daily MD Work Phone: [facility] 09-08-2023 12:41-0500 Systolic blood pressure 121 mm[Hg] Tyrell Daily MD Work Phone: [facility] 09-08-2023 08:28-0500 Body mass index (BMI) [Ratio] 24.02 kg/m2 Mel Giron MD Work Phone: [phone](527)[phone] [address] 09-08-2023 08:28-0500 Body temperature 97.39 [degF] Mel Giron MD Work Phone: 0(277)[phone] [address] 09-08-2023 08:28-0500 Body weight 61.51 kg Mel Giron MD Work Phone: [phone](401)[phone] [address] 09-08-2023 08:28-0500 Diastolic blood pressure 75 mm[Hg] Mel Giron MD Work Phone: 4(984)[phone] [address] 09-08-2023 08:28-0500 Heart rate 74 /min Mel Giron MD Work Phone: [facility] 09-08-2023 08:28-0500 Respiratory rate 12 /min Mel Giron MD Work Phone: [facility] 09-08-2023 08:28-0500 Systolic blood pressure 121 mm[Hg] Mel Giron MD Work Phone: [facility] 07-21-2023 13:24-0500 Diastolic blood pressure 88 mm[Hg] Tyrell Daily MD Work Phone: [facility] 07-21-2023 13:24-0500 Heart rate 71 /min Tyrell Daily MD Work Phone: [facility] 07-21-2023 13:24-0500 Respiratory rate 16 /min Tyrell Daily MD Work Phone: [facility] 07-21-2023 13:24-0500 SaO2% (BldA) [Mass fraction] 99 % Tyrell Daily MD Work Phone: [facility] 07-21-2023 13:24-0500 Systolic blood pressure 130 mm[Hg] Tyrell Daily MD Work Phone: [facility] 07-14-2023 10:00-0500 Body height 161.29 cm Sola Danita Other [employer] Other 07-14-2023 10:00-0500 Body mass index (BMI) [Ratio] 23.71 kg/m2 Sola Danita Other [employer] Other 07-14-2023 10:00-0500 Body temperature 97.6 [degF] Sola Danita Other [employer] Other 07-14-2023 10:00-0500 Body weight 61.69 kg Sola Danita Other [employer] Other 07-14-2023 10:00-0500 Diastolic blood pressure 78 mm[Hg] Sola Danita Other [employer] Other 07-14-2023 10:00-0500 Respiratory rate 20 /min Sola Danita Other [employer] Other 07-14-2023 10:00-0500 SaO2% (BldA) [Mass fraction] 99 % Sola Danita Other [employer] Other 07-14-2023 10:00-0500 Systolic blood pressure 119 mm[Hg] Sola Danita Other [employer] Other 06-30-2023 13:02-0400 Body mass index (BMI) [Ratio] 24.17 kg/m2 Tyrell Daily MD Work Phone: [facility] 06-30-2023 13:02-0400 Body weight 62.87 kg Tyrell Daily MD Work Phone: [facility] 06-30-2023 13:02-0400 Diastolic blood pressure 74 mm[Hg] Tyrell Daily MD Work Phone: [facility] 06-30-2023 13:02-0400 Heart rate 72 /min Tyrell Daily MD Work Phone: [facility] 06-30-2023 13:02-0400 Respiratory rate 16 /min Tyrell Daily MD Work Phone: [facility] 06-30-2023 13:02-0400 SaO2% (BldA) [Mass fraction] 99 % Tyrell Daily MD Work Phone: [facility] 06-30-2023 13:02-0400 Systolic blood pressure 130 mm[Hg] Tyrell Daily MD Work Phone: [facility] 06-17-2023 11:00-0400 Body height 161.29 cm Tucker Haywood Other [employer] Other 06-17-2023 11:00-0400 Body mass index (BMI) [Ratio] 24.3 kg/m2 Tucker Haywood Other [employer] Other 06-17-2023 11:00-0400 Body weight 63.23 kg Tucker Haywood Other [employer] Other 06-17-2023 11:00-0400 Diastolic blood pressure 75 mm[Hg] Tucker Haywood Other [employer] Other 06-17-2023 11:00-0400 Systolic blood pressure 118 mm[Hg] Tucker Haywood Other [employer] Other 06-09-2023 09:15-0400 Body mass index (BMI) [Ratio] 23.91 kg/m2 Barbara MACHADO Work Phone: [facility] 06-09-2023 09:15-0400 Body temperature 97.3 [degF] Barbara Santiago APRN-PHARMACEUTICAL WORKER Work Phone: [facility] 06-09-2023 09:15-0400 Body weight 62.19 kg Barbara Santiago APRN-PHARMACEUTICAL WORKER Work Phone: [facility] 06-09-2023 09:15-0400 Diastolic blood pressure 72 mm[Hg] Barbara Santiago APRN-PHARMACEUTICAL WORKER Work Phone: [facility] 06-09-2023 09:15-0400 Heart rate 86 /min Barbara MACHADO Work Phone: [facility] 06-09-2023 09:15-0400 Respiratory rate 16 /min Barbara MACHADO Work Phone: [facility] 06-09-2023 09:15-0400 SaO2% (BldA) [Mass fraction] 98 % Barbara MACHADO Work Phone: [facility] 06-09-2023 09:15-0400 Systolic blood pressure 119 mm[Hg] Barbara MACHADO Work Phone: [facility] 05-19-2023 10:15-0400 Body height 161.29 cm Sola Danita Other [employer] Other 05-19-2023 10:15-0400 Body mass index (BMI) [Ratio] 23.19 kg/m2 Sola Danita Other [employer] Other 05-19-2023 10:15-0400 Body temperature 97.6 [degF] Sola Danita Other [employer] Other 05-19-2023 10:15-0400 Body weight 60.33 kg Sola Danita Other [employer] Other 05-19-2023 10:15-0400 Diastolic blood pressure 81 mm[Hg] Sola Danita Other [employer] Other 05-19-2023 10:15-0400 Respiratory rate 20 /min Sola Danita Other [employer] Other 05-19-2023 10:15-0400 SaO2% (BldA) [Mass fraction] 97 % Sola Danita Other [employer] Other 05-19-2023 10:15-0400 Systolic blood pressure 121 mm[Hg] Sola Samayoa Other [employer] Other 05-11-2023 13:15-0400 Body height 161.29 cm Tucker Haywood Other [employer] Other 05-11-2023 13:15-0400 Body mass index (BMI) [Ratio] 23.43 kg/m2 Tucker Haywood Other [employer] Other 05-11-2023 13:15-0400 Body weight 60.96 kg Tucker Haywood Other [employer] Other 05-11-2023 13:15-0400 Diastolic blood pressure 83 mm[Hg] Tucker Haywood Other [employer] Other 05-11-2023 13:15-0400 Respiratory rate 12 /min Tucker Haywood Other [employer] Other 05-11-2023 13:15-0400 SaO2% (BldA) [Mass fraction] 96 % Tucker Haywood Other [employer] Other 05-11-2023 13:15-0400 Systolic blood pressure 116 mm[Hg] Tucker Haywood Other [employer] Other 02-24-2023 08:35-0400 Diastolic blood pressure 76 mm[Hg] Tyrell Daily MD Work Phone: [facility] 02-24-2023 08:35-0400 Heart rate 70 /min Tyrell Daily MD Work Phone: [facility] 02-24-2023 08:35-0400 Respiratory rate 16 /min Tyrell Daily MD Work Phone: [facility] 02-24-2023 08:35-0400 SaO2% (BldA) [Mass fraction] 98 % Tyrell Daily MD Work Phone: [facility] 02-24-2023 08:35-0400 Systolic blood pressure 133 mm[Hg] Tyrell Daily MD Work Phone: [facility] 02-18-2023 15:00-0400 Body height 161.29 cm Tucker Haywood Other [employer] Other 02-18-2023 15:00-0400 Body mass index (BMI) [Ratio] 23.19 kg/m2 Tucker Haywood Other [employer] Other 02-18-2023 15:00-0400 Body weight 60.33 kg Tucker Haywood Other [employer] Other 02-18-2023 15:00-0400 Diastolic blood pressure 62 mm[Hg] Tucker Haywood Other [employer] Other 02-18-2023 15:00-0400 SaO2% (BldA) [Mass fraction] 96 % Tucker Haywood Other [employer] Other 02-18-2023 15:00-0400 Systolic blood pressure 122 mm[Hg] Tucker Haywood Other [employer] Other 01-27-2023 14:29-0400 Body height 161.3 cm Stuart Smallwood MD Work Phone: [facility] 01-27-2023 14:29-0400 Body mass index (BMI) [Ratio] 23.89 kg/m2 Stuart Smallwood MD Work Phone: [facility] 01-27-2023 14:29-0400 Body temperature 97.59 [degF] Stuart Smallwood MD Work Phone: [facility] 01-27-2023 14:29-0400 Body weight 62.14 kg Stuart Smallwood MD Work Phone: [facility] 01-27-2023 14:29-0400 Diastolic blood pressure 70 mm[Hg] Stuart Smallwood MD Work Phone: [facility] 01-27-2023 14:29-0400 Heart rate 81 /min Stuart Smallwood MD Work Phone: [facility] 01-27-2023 14:29-0400 Systolic blood pressure 121 mm[Hg] Stuart Smallwood MD Work Phone: [facility] 12-09-2022 12:20-0400 Body temperature 97.2 [degF] Tyrell Daily MD Work Phone: [facility] 12-09-2022 12:20-0400 Diastolic blood pressure 66 mm[Hg] Tyrell Daily MD Work Phone: [facility] 12-09-2022 12:20-0400 Heart rate 86 /min Tyrell Daily MD Work Phone: [facility] 12-09-2022 12:20-0400 Respiratory rate 16 /min Tyrell Daily MD Work Phone: [facility] 12-09-2022 12:20-0400 SaO2% (BldA) [Mass fraction] 100 % Tyrell Daily MD Work Phone: [facility] 12-09-2022 12:20-0400 Systolic blood pressure 116 mm[Hg] Tyrell Daily MD Work Phone: [facility] 11-27-2022 10:45-0400 Body height 161.29 cm Tucker Haywood Other [employer] Other 11-27-2022 10:45-0400 Body mass index (BMI) [Ratio] 24.69 kg/m2 Tucker Haywood Other [employer] Other 11-27-2022 10:45-0400 Body weight 64.23 kg Tucker Haywood Other [employer] Other 11-27-2022 10:45-0400 Diastolic blood pressure 60 mm[Hg] Tucker Haywood Other [employer] Other 11-27-2022 10:45-0400 Respiratory rate 18 /min Tucker Haywood Other [employer] Other 11-27-2022 10:45-0400 SaO2% (BldA) [Mass fraction] 96 % Tucker Haywood Other [employer] Other 11-27-2022 10:45-0400 Systolic blood pressure 122 mm[Hg] Tucker Haywood Other [employer] Other 10-07-2022 08:30-0500 Body mass index (BMI) [Ratio] 24.94 kg/m2 Barbara Powersin [employer]APER WOOD CUTTER-PHARMACEUTICAL WORKER Work Phone: [facility] 10-07-2022 08:30-0500 Body temperature 97.3 [degF] Barbara Powersin [employer]ER WOOD CUTTER-PHARMACEUTICAL WORKER Work Phone: [facility] 10-07-2022 08:30-0500 Body weight 63.87 kg Barbara Powersin [employer]ER WOOD CUTTER-PHARMACEUTICAL WORKER Work Phone: [facility] 10-07-2022 08:30-0500 Diastolic blood pressure 72 mm[Hg] Barbara Powersin [employer]ER WOOD C[employer]TER-PHARMACEUTICAL WORKER Work Phone: [facility] 10-07-2022 08:30-0500 Heart rate 88 /min Barbara Escobedo [employer]ER WO[employer] C[employer]TER-PHARMACEUTICAL WORKER Work Phone: [facility] 10-07-2022 08:30-0500 Respiratory rate 16 /min Barbara Escobedo P[employer]ER WOOD CUTTER-PHARMACEUTICAL WORKER Work Phone: [facility] 10-07-2022 08:30-0500 SaO2% (BldA) [Mass fraction] 96 % Barbaramelvina Escobedo P[employer]ER WOOD CUTTER-PHARMACEUTICAL WORKER Work Phone: [facility] 10-07-2022 08:30-0500 Systolic blood pressure 120 mm[Hg] Barbara Escobedo [employer]ER WO[employer] CUTTER-PHARMACEUTICAL WORKER Work Phone: [facility] 09-04-2022 09:17-0500 Body mass index (BMI) [Ratio] 25.51 kg/m2 Deepti Gomez MD, PhD Work Phone: [facility] 09-04-2022 09:17-0500 Body temperature 97.39 [degF] Deepti Gomez MD, PhD Work Phone: [facility] 09-04-2022 09:17-0500 Body weight 65.32 kg Deepti Gomez MD, PhD Work Phone: [facility] 09-04-2022 09:17-0500 Diastolic blood pressure 83 mm[Hg] Deepti Gomez MD, PhD Work Phone: [facility] 09-04-2022 09:17-0500 Heart rate 88 /min Deepti Gomez MD, PhD Work Phone: [facility] 09-04-2022 09:17-0500 Respiratory rate 17 /min Deepti Gomez MD, PhD Work Phone: [facility] 09-04-2022 09:17-0500 SaO2% (BldA) [Mass fraction] 94 % Deepti Gomez MD, PhD Work Phone: [facility] 09-04-2022 09:17-0500 Systolic blood pressure 147 mm[Hg] Deepti Gomez MD, PhD Work Phone: [facility] 08-18-2022 13:33-0500 Body mass index (BMI) [Ratio] 25.12 kg/m2 Deepti Gomez MD, PhD Work Phone: [facility] 08-18-2022 13:33-0500 Body temperature 97.5 [degF] Deepti Gomez MD, PhD Work Phone: [facility] 08-18-2022 13:33-0500 Body weight 64.32 kg Deepti Gomez MD, PhD Work Phone: [facility] 08-18-2022 13:33-0500 Diastolic blood pressure 76 mm[Hg] Deepti Gomez MD, PhD Work Phone: [facility] 08-18-2022 13:33-0500 Heart rate 74 /min Deepti Gomez MD, PhD Work Phone: [facility] 08-18-2022 13:33-0500 Respiratory rate 16 /min Deepti Gomez MD, PhD Work Phone: [facility] 08-18-2022 13:33-0500 SaO2% (BldA) [Mass fraction] 98 % Deepti Gomez MD, PhD Work Phone: [facility] 08-18-2022 13:33-0500 Systolic blood pressure 141 mm[Hg] Deepti Gomez MD, PhD Work Phone: [facility] 08-14-2022 13:56-0500 Body mass index (BMI) [Ratio] 25.3 kg/m2 Deepti Gomez MD, PhD Work Phone: [facility] 08-14-2022 13:56-0500 Body temperature 97.5 [degF] Deepti Gomez MD, PhD Work Phone: [facility] 08-14-2022 13:56-0500 Body weight 64.77 kg Deepti Gomez MD, PhD Work Phone: [facility] 08-14-2022 13:56-0500 Diastolic blood pressure 82 mm[Hg] Deepti Gomez MD, PhD Work Phone: [facility] 08-14-2022 13:56-0500 Heart rate 73 /min Deepti Gomez MD, PhD Work Phone: [facility] 08-14-2022 13:56-0500 Respiratory rate 16 /min Deepti Gomez MD, PhD Work Phone: [facility] 08-14-2022 13:56-0500 SaO2% (BldA) [Mass fraction] 100 % Deepti Gomez MD, PhD Work Phone: [facility] 08-14-2022 13:56-0500 Systolic blood pressure 148 mm[Hg] Deepti Gomez MD, PhD Work Phone: [facility] 08-12-2022 12:28-0500 Body temperature 97.59 [degF] Tyrell Daily MD Work Phone: [facility] 08-12-2022 12:28-0500 Diastolic blood pressure 73 mm[Hg] Tyrell Daily MD Work Phone: [facility] 08-12-2022 12:28-0500 Heart rate 76 /min Tyrell Daily MD Work Phone: [facility] 08-12-2022 12:28-0500 Respiratory rate 16 /min Tyrell Daily MD Work Phone: [facility] 08-12-2022 12:28-0500 SaO2% (BldA) [Mass fraction] 99 % Tyrell Daily MD Work Phone: [facility] 08-12-2022 12:28-0500 Systolic blood pressure 131 mm[Hg] Tyrell Daily MD Work Phone: [facility] 08-12-2022 11:01-0500 Body mass index (BMI) [Ratio] 25.28 kg/m2 Mel Giron MD Work Phone: [facility] 08-12-2022 11:01-0500 Body temperature 97.59 [degF] Mel Giron MD Work Phone: 4(585)[phone] [place] [address] 08-12-2022 11:01-0500 Body weight 64.73 kg Mel Giron MD Work Phone: 8(812)[phone] [place] [address] 08-12-2022 11:01-0500 Diastolic blood pressure 64 mm[Hg] Mel Giron MD Work Phone: [facility] 08-12-2022 11:01-0500 Heart rate 90 /min Mel Giron MD Work Phone: [facility] 08-12-2022 11:01-0500 Respiratory rate 18 /min Mel Giron MD Work Phone: 5(405)[phone] [place] [address] 08-12-2022 11:01-0500 SaO2% (BldA) [Mass fraction] 99 % Mel Giron MD Work Phone: [facility] 08-12-2022 11:01-0500 Systolic blood pressure 135 mm[Hg] Mel Giron MD Work Phone: [facility] 07-31-2022 12:35-0500 Body mass index (BMI) [Ratio] 25.3 kg/m2 Deepti Gomez MD, PhD Work Phone: [facility] 07-31-2022 12:35-0500 Body temperature 98.01 [degF] Deepti Gomez MD, PhD Work Phone: [facility] 07-31-2022 12:35-0500 Body weight 64.77 kg Deepti Gomez MD, PhD Work Phone: [facility] 07-31-2022 12:35-0500 Diastolic blood pressure 75 mm[Hg] Deepti Gomez MD, PhD Work Phone: [facility] 07-31-2022 12:35-0500 Heart rate 90 /min Deepti Gomez MD, PhD Work Phone: [facility] 07-31-2022 12:35-0500 SaO2% (BldA) [Mass fraction] 99 % Deepti Gomez MD, PhD Work Phone: [facility] 07-31-2022 12:35-0500 Systolic blood pressure 144 mm[Hg] Deepti Gomez MD, PhD Work Phone: [facility] 07-08-2022 09:27-0500 Diastolic blood pressure 71 mm[Hg] Tyrell Daily MD Work Phone: [facility] 07-08-2022 09:27-0500 Heart rate 90 /min Tyrell Daily MD Work Phone: [facility] 07-08-2022 09:27-0500 Respiratory rate 16 /min Tyrell Daily MD Work Phone: [facility] 07-08-2022 09:27-0500 SaO2% (BldA) [Mass fraction] 100 % Tyrell Daily MD Work Phone: [facility] 07-08-2022 09:27-0500 Systolic blood pressure 130 mm[Hg] Tyrell Daily MD Work Phone: [facility] 06-17-2022 15:11-0400 Diastolic blood pressure 86 mm[Hg] Tyrell Daily MD Work Phone: [facility] 06-17-2022 15:11-0400 Heart rate 81 /min Tyrell Daily MD Work Phone: [facility] 06-17-2022 15:11-0400 Respiratory rate 16 /min Tyrell Daily MD Work Phone: [facility] 06-17-2022 15:11-0400 SaO2% (BldA) [Mass fraction] 94 % Tyrell Daily MD Work Phone: [facility] 06-17-2022 15:11-0400 Systolic blood pressure 140 mm[Hg] Tyrell Daily MD Work Phone: [facility] 05-13-2022 08:19-0400 Body mass index (BMI) [Ratio] 24.97 kg/m2 Mel Giron MD Work Phone: 6(372)[phone] [address] 05-13-2022 08:19-0400 Body temperature 97.9 [degF] Mel Giron MD Work Phone: 9(728)[phone] [address] 05-13-2022 08:19-0400 Body weight 64.95 kg Mel Giron MD Work Phone: 3(951)[phone] [address] 05-13-2022 08:19-0400 Diastolic blood pressure 80 mm[Hg] Mel Giron MD Work Phone: 6(191)[phone] [address] 05-13-2022 08:19-0400 Heart rate 81 /min Mel Giron MD Work Phone: 6(813)[phone] [place] [address] 05-13-2022 08:19-0400 Respiratory rate 16 /min Mel Giron MD Work Phone: 7(418)[phone] [address] 05-13-2022 08:19-0400 SaO2% (BldA) [Mass fraction] 98 % Mel Giron MD Work Phone: [facility] 05-13-2022 08:19-0400 Systolic blood pressure 129 mm[Hg] Mel Giron MD Work Phone: [facility] 04-22-2022 14:03-0400 Body height 161.3 cm Tyrell Daily MD Work Phone: [facility] 04-22-2022 14:03-0400 Body mass index (BMI) [Ratio] 24.91 kg/m2 Tyrell Daily MD Work Phone: [facility] 04-22-2022 14:03-0400 Body temperature 97.3 [degF] Tyrell Daily MD Work Phone: [facility] 04-22-2022 14:03-0400 Body weight 64.8 kg Tyrell Daily MD Work Phone: [facility] 04-22-2022 14:03-0400 Diastolic blood pressure 73 mm[Hg] Tyrell Daily MD Work Phone: [facility] 04-22-2022 14:03-0400 Heart rate 77 /min Tyrell Daily MD Work Phone: [facility] 04-22-2022 14:03-0400 Respiratory rate 14 /min Tyrell Daily MD Work Phone: [facility] 04-22-2022 14:03-0400 SaO2% (BldA) [Mass fraction] 95 % Tyrell Daily MD Work Phone: [facility] 04-22-2022 14:03-0400 Systolic blood pressure 126 mm[Hg] Tyrell Daily MD Work Phone: [facility] 04-22-2022 12:58-0400 Body height 161.3 cm Stuart Smallwood MD Work Phone: [facility] 04-22-2022 12:58-0400 Body mass index (BMI) [Ratio] 24.9 kg/m2 Stuart Smallwood MD Work Phone: [facility] 04-22-2022 12:58-0400 Body weight 64.77 kg Stuart Smallwood MD Work Phone: [facility] 04-22-2022 12:58-0400 Diastolic blood pressure 73 mm[Hg] Stuart Smallwood MD Work Phone: [facility] 04-22-2022 12:58-0400 Heart rate 77 /min Stuart Smallwood MD Work Phone: [facility] 04-22-2022 12:58-0400 Systolic blood pressure 126 mm[Hg] Stuart Smallwood MD Work Phone: [facility] 04-15-2022 12:55-0400 Body height 161.3 cm Tyrell Daily MD Work Phone: [facility] 04-15-2022 12:55-0400 Body mass index (BMI) [Ratio] 24.75 kg/m2 Tyrell Daily MD Work Phone: [facility] 04-15-2022 12:55-0400 Body temperature 97.3 [degF] Tyrell Daily MD Work Phone: [facility] 04-15-2022 12:55-0400 Body weight 64.4 kg Tyrell Daily MD Work Phone: [facility] 04-15-2022 12:55-0400 Diastolic blood pressure 69 mm[Hg] Tyrell Daily MD Work Phone: [facility] 04-15-2022 12:55-0400 Heart rate 82 /min Tyrell Daily MD Work Phone: [facility] 04-15-2022 12:55-0400 Respiratory rate 14 /min Tyrell Daily MD Work Phone: [facility] 04-15-2022 12:55-0400 SaO2% (BldA) [Mass fraction] 95 % Tyrell Daily MD Work Phone: [facility] 04-15-2022 12:55-0400 Systolic blood pressure 136 mm[Hg] Tyrell Daily MD Work Phone: [facility] 04-15-2022 12:13-0400 Body height 161.3 cm Stuart Smallwood MD Work Phone: [facility] 04-15-2022 12:13-0400 Body mass index (BMI) [Ratio] 24.76 kg/m2 Stuart Smallwood MD Work Phone: [facility] 04-15-2022 12:13-0400 Body temperature 97.3 [degF] Stuart Smallwood MD Work Phone: [facility] 04-15-2022 12:13-0400 Body weight 64.41 kg Stuart Smallwood MD Work Phone: [facility] 04-15-2022 12:13-0400 Diastolic blood pressure 69 mm[Hg] Stuart Smallwood MD Work Phone: [facility] 04-15-2022 12:13-0400 Heart rate 82 /min Stuart Smallwood MD Work Phone: [facility] 04-15-2022 12:13-0400 Systolic blood pressure 136 mm[Hg] Stuart Smallwood MD Work Phone: [facility] 04-11-2022 07:18-0400 Body temperature 97.9 [degF] Stuart Smallwood MD Work Phone: [facility] 04-11-2022 07:18-0400 Diastolic blood pressure 68 mm[Hg] Stuart Smallwood MD Work Phone: [facility] 04-11-2022 07:18-0400 Heart rate 80 /min Stuart Smallwood MD Work Phone: [facility] 04-11-2022 07:18-0400 Respiratory rate 14 /min Stuart Smallwood MD Work Phone: [facility] 04-11-2022 07:18-0400 SaO2% (BldA) [Mass fraction] 95 % Stuart Smallwood MD Work Phone: [facility] 04-11-2022 07:18-0400 Systolic blood pressure 127 mm[Hg] Stuart Smallwood MD Work Phone: [facility] 04-10-2022 05:19-0400 Body height 161.3 cm Stuart Smallwood MD Work Phone: [facility] 04-10-2022 05:19-0400 Body mass index (BMI) [Ratio] 24.64 kg/m2 Stuart Smallwood MD Work Phone: [facility] 04-10-2022 05:19-0400 Body weight 64.09 kg Stuart Smallwood MD Work Phone: [facility] 03-20-2022 15:22-0400 Body mass index (BMI) [Ratio] 24.48 kg/m2 Mel Giron MD Work Phone: [facility] 03-20-2022 15:22-0400 Body temperature 97.7 [degF] Mel Giron MD Work Phone: [facility] 03-20-2022 15:22-0400 Body weight 63.69 kg Mel Giron MD Work Phone: [facility] 03-20-2022 15:22-0400 Diastolic blood pressure 71 mm[Hg] Mel Giron MD Work Phone: [facility] 03-20-2022 15:22-0400 Heart rate 67 /min Mel Giron MD Work Phone: [facility] 03-20-2022 15:22-0400 Respiratory rate 16 /min Mel Giron MD Work Phone: [facility] 03-20-2022 15:22-0400 SaO2% (BldA) [Mass fraction] 100 % Mel Giron MD Work Phone: [facility] 03-20-2022 15:22-0400 Systolic blood pressure 120 mm[Hg] Mel Giron MD Work Phone: [phone]([phone] [place] [address] 03-20-2022 13:15-0400 Body mass index (BMI) [Ratio] 24.24 kg/m2 Deepti Gomez MD, PhD Work Phone: [facility] 03-20-2022 13:15-0400 Body temperature 97.7 [degF] Deepti Gomez MD, PhD Work Phone: [facility] 03-20-2022 13:15-0400 Body weight 63.05 kg Deepti Gomez MD, PhD Work Phone: [facility] 03-20-2022 13:15-0400 Diastolic blood pressure 70 mm[Hg] Deepti Gomez MD, PhD Work Phone: [facility] 03-20-2022 13:15-0400 Heart rate 69 /min Deepti Gomez MD, PhD Work Phone: [facility] 03-20-2022 13:15-0400 Respiratory rate 16 /min Deepti Gomez MD, PhD Work Phone: [facility] 03-20-2022 13:15-0400 SaO2% (BldA) [Mass fraction] 99 % Deepti Gomez MD, PhD Work Phone: [facility] 03-20-2022 13:15-0400 Systolic blood pressure 120 mm[Hg] Deepti Gomez MD, PhD Work Phone: [facility] 03-18-2022 08:59-0400 Body height 161.3 cm Marlene Olivas [employer] C[employer]TER-PHARMACEUTICAL WORKER Work Phone: [facility] 03-18-2022 08:59-0400 Body mass index (BMI) [Ratio] 24.41 kg/m2 Marlene Olivas [employer] WO[employer] C[employer]TER-PHARMACEUTICAL WORKER Work Phone: [facility] 03-18-2022 08:59-0400 Body weight 63.5 kg Marlene Olivas [employer]ER WO[employer] C[employer]TER-PHARMACEUTICAL WORKER Work Phone: [facility] 03-18-2022 08:59-0400 Diastolic blood pressure 80 mm[Hg] Marlene Olivas P[employer]ER WO[employer] C[employer]TER-PHARMACEUTICAL WORKER Work Phone: [facility] 03-18-2022 08:59-0400 Heart rate 82 /min Marlene Olivas P[employer]ER WO[employer] C[employer]TER-PHARMACEUTICAL WORKER Work Phone: [facility] 03-18-2022 08:59-0400 Systolic blood pressure 132 mm[Hg] Marlene Olivas P[employer]ER WO[employer] C[employer]TER-PHARMACEUTICAL WORKER Work Phone: [facility] 03-04-2022 07:34-0400 Body height 161.3 cm Tyrell Daily MD Work Phone: [facility] 03-04-2022 07:34-0400 Body mass index (BMI) [Ratio] 24.48 kg/m2 Tyrell Daily MD Work Phone: [facility] 03-04-2022 07:34-0400 Body temperature 98.1 [degF] Tyrell Daily MD Work Phone: [facility] 03-04-2022 07:34-0400 Body weight 63.69 kg Tyrell Daily MD Work Phone: [facility] 03-04-2022 07:34-0400 Diastolic blood pressure 74 mm[Hg] Tyrell Daily MD Work Phone: [facility] 03-04-2022 07:34-0400 Heart rate 67 /min Tyrell Daily MD Work Phone: [facility] 03-04-2022 07:34-0400 Respiratory rate 16 /min Tyrell Daily MD Work Phone: [facility] 03-04-2022 07:34-0400 SaO2% (BldA) [Mass fraction] 98 % Tyrell Daily MD Work Phone: [facility] 03-04-2022 07:34-0400 Systolic blood pressure 144 mm[Hg] Tyrell Daily MD Work Phone: [facility] 02-27-2022 09:14-0400 Diastolic blood pressure 86 mm[Hg] Marlene Olivas [employer] C[employer]TER-[employer]ARMACEUTICAL WORKER Work Phone: [facility] 02-27-2022 09:14-0400 Systolic blood pressure 137 mm[Hg] Marlene Olivas [employer]ER [employer] C[employer]TER-PHARMACEUTICAL WORKER Work Phone: [facility] 02-24-2022 08:36-0400 Body height 161.3 cm Stuart Smallwood MD Work Phone: [facility] 02-24-2022 08:36-0400 Body mass index (BMI) [Ratio] 24.83 kg/m2 Stuart Smallwood MD Work Phone: [facility] 02-24-2022 08:36-0400 Body temperature 97.9 [degF] Stuart Smallwood MD Work Phone: [facility] 02-24-2022 08:36-0400 Body weight 64.59 kg Stuart Smallwood MD Work Phone: [facility] 02-24-2022 08:36-0400 Diastolic blood pressure 83 mm[Hg] Stuart Smallwood MD Work Phone: [facility] 02-24-2022 08:36-0400 Heart rate 80 /min Stuart Smallwood MD Work Phone: [facility] 02-24-2022 08:36-0400 Respiratory rate 14 /min Stuart Smallwood MD Work Phone: [facility] 02-24-2022 08:36-0400 Systolic blood pressure 140 mm[Hg] Stuart Smallwood MD Work Phone: [facility] Encounters Encounter Date Encounter Type Care Provider Facility Start: 02-01-2024 End: 02-01-2024 ambulatory LILLIE ROMERO Not Available Start: 01-21-2024 Telephone encounter Bret alonzo PA-C Work Phone: Orthopaedics Start: 01-21-2024 End: 01-21-2024 ambulatory BRET ONEAL Facility:[facility] Start: 01-21-2024 End: 01-21-2024 Patient encounter procedure Bret Oneal PA-C Work Phone: Orthopaedics Comment on above: Acute medial meniscu s tear of left knee, initial encounter (Primary Dx); Primary osteoarthritis of left knee Start: 01-14-2024 End: 01-14-2024 ambulatory MAURICIO D HILLS Not Available Start: 01-04-2024 End: 01-04-2024 ambulatory MAURICIO D HILLS Not Available Start: 12-22-2023 End: 12-22-2023 ambulatory KARMEN MARIN Not Available Start: 12-20-2023 End: 12-20-2023 ambulatory KARMEN MARIN Not Available Start: 12-16-2023 End: 12-16-2023 ambulatory KARMEN MARIN Not Available Start: 12-14-2023 End: 12-14-2023 ambulatory KARMEN MARIN Not Available Start: 12-13-2023 End: 12-13-2023 ambulatory MAURICIO DIMAS Not Available Start: 10-15-2023 End: 10-15-2023 ambulatory Sola Danita Facility:[facility] Start: 10-15-2023 End: 10-15-2023 ambulatory MD Tucker Haywood Work Phone: [facility] Work Phone: Start: 10-15-2023 End: 10-15-2023 Patient encounter procedure MD Tucker Haywood Work Phone: [facility] [place] Work Phone: Start: 09-08-2023 End: 09-08-2023 Postop follow up visit related to original px Tyrell Daily MD Work Phone: Department of Plastic Surgery Comment on above: Acquired absence of breast, unspecified laterality (Primary Dx) Start: 09-08-2023 End: 09-08-2023 Clinical Support Encounter Mel Giron MD Work Phone: [facility] Comment on above: Personal history of malignant neoplasm of breast (Primary Dx) Start: 09-08-2023 End: 09-08-2023 Office outpatient visit 25 minutes Mel Giron MD Work Phone: [facility] [place] Comment on above: Malignant neoplasm o f lower-inner quadrant of right breast of female, estrogen receptor positive (Primary Dx); Hot flashes related to aromatase inhibitor therapy; Encounter for monitoring aromatase inhibitor therapy Start: 09-08-2023 ambulatory TUCKER HAYWOOD Facility:[facility] Start: 07-21-2023 End: 07-21-2023 Postop follow up visit related to original px Tyrell Daily MD Work Phone: Department of Plastic Surgery Comment on above: 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 Other Start: 07-14-2023 Office outpatient vi sit 25 minutes Sola Danita [facility] Start: 07-07-2023 End: 07-07-2023 ambulatory Sola Danita Facility:[facility] Start: 07-07-2023 End: 07-07-2023 ambulatory MD Tucker Haywood Work Phone: [facility] Work Phone: Start: 07-07-2023 End: 07-07-2023 Patient encounter procedure MD Tucker Haywood Work Phone: [facility]-CT [facility] [place] Work Phone: Start: 07-02-2023 ambulatory TUCKER HAYWOOD Facility:[facility] Start: 06-30-2023 End: 06-30-2023 Patient encounter procedure Tyrell Daily MD Work Phone: Department of Plastic Surgery Comment on above: 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 Other Start: 06-17-2023 Office outpatient vi sit [address] [facility] Start: 06-14-2023 End: 06-14-2023 ambulatory Sola Danita Other [employer] Other Start: 06-14-2023 Telephone encounter Sola Danita [facility] Start: 06-09-2023 ambulatory BARBARA SANTIAGO Facility:[facility] Start: 06-09-2023 End: 06-09-2023 Office outpatient visit 15 minutes Barbara Stewart Madhuviral PAPER WOOD CUTTER-PHARMACEUTICAL WORKER Work Phone: Medical Oncology at [facility] Comment on above: Malignant neoplasm o f lower-inner quadrant of right breast of female, estrogen receptor positive (Primary Dx) Start: 05-20-2023 End: 05-20-2023 ambulatory Sola Danita Other [employer] Other Start: 05-20-2023 Telephone encounter Sola Danita [facility] Start: 05-19-2023 End: 05-19-2023 ambulatory Sola Danita Other [employer] Other Start: 05-19-2023 Office outpatient ne w 45 minutes Sola Danita [facility] Start: 05-11-2023 End: 05-11-2023 ambulatory Tucker Haywood Other [employer] Other Start: 05-11-2023 Office outpatient vi sit [address] [facility] Start: 02-25-2023 End: 02-25-2023 ambulatory Sola Danita Other [employer] 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 Other Start: 02-18-2023 Office outpatient vi sit [address] [facility] Start: 02-09-2023 End: 02-09-2023 ambulatory Tucker Haywood Other [employer] Other Start: 02-09-2023 Telephone encounter Tucker Yobany [facility] Start: 01-27-2023 End: 01-27-2023 Office outpatient visit 15 minutes Stuart Smallwood MD Work Phone: Division of Surgical Oncology Comment on above: Malignant neoplasm o f lower-inner quadrant of right breast of female, estrogen receptor positive (Primary Dx) Start: 01-27-2023 End: 01-27-2023 Subsequent hospital visit by physician Stuart Smallwood MD Work Phone: [facility] at [facility] Start: 12-09-2022 End: 12-09-2022 Office outpatient visit 10 minutes Tyrell Daily MD Work Phone: Department of Plastic Surgery Comment on above: 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 Other Start: 11-27-2022 Office outpatient vi sit [address] [facility] Start: 10-07-2022 End: 10-07-2022 Clinical Support Encounter Barbara Escobedo APRN-PHARMACEUTICAL WORKER [facility] Comment on above: History of breast ca ncer (Primary Dx) Start: 10-07-2022 End: 10-07-2022 Office outpatient visit 15 minutes Barbara Escobedo PAPER WOOD CUTTER-PHARMACEUTICAL WORKER Work Phone: Department of Radiation Oncology Comment on above: Malignant neoplasm o f lower-inner quadrant of right breast of female, estrogen receptor positive (Primary Dx) Start: 09-04-2022 End: 09-04-2022 Patient encounter procedure Deepti Gomez MD, PhD Work Phone: Department of Radiation Oncology Comment on above: Malignant neoplasm o f lower-inner quadrant of right breast of female, estrogen receptor positive (Primary Dx) Start: 08-18-2022 End: 08-28-2022 Patient encounter procedure Deepti Gomez MD, PhD Work Phone: Department of Radiation Oncology Comment on above: Malignant neoplasm o f lower-inner quadrant of right breast of female, estrogen receptor positive (Primary Dx) Start: 08-14-2022 End: 08-14-2022 Patient encounter procedure Deepti Gomez MD, PhD Work Phone: Department of Radiation Oncology Comment on above: Malignant neoplasm o f lower-inner quadrant of right breast of female, estrogen receptor positive (Primary Dx) Start: 08-12-2022 End: 08-12-2022 Postop follow up visit related to original px Tyrell Daily MD Work Phone: Department of Plastic Surgery Comment on above: 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) Start: 08-12-2022 End: 08-12-2022 Office outpatient visit 15 minutes Mel Giron MD Work Phone: Medical Oncology at [facility] Comment on above: Malignant neoplasm o f lower-inner quadrant of right breast of female, estrogen receptor positive (Primary Dx); Hot flashes due to menopause Start: 08-12-2022 End: 08-12-2022 Subsequent hospital visit by physician Mel Giron MD Work Phone: Department of Radiology Start: 07-31-2022 End: 07-31-2022 Clinical Support Encounter Deepti Gomez MD, PhD Work Phone: Department of Radiation Oncology Comment on above: Malignant neoplasm o f lower-inner quadrant of right breast of female, estrogen receptor positive (Primary Dx) Start: 07-31-2022 End: 07-31-2022 Office outpatient visit 25 minutes Deepti Gomez MD, PhD Work Phone: Department of Radiation Oncology Comment on above: Malignant neoplasm o f lower-inner quadrant of right breast of female, estrogen receptor positive (Primary Dx) Start: 07-08-2022 End: 07-08-2022 Postop follow up visit related to original px Tyrell Daily MD Work Phone: Department of Plastic Surgery Comment on above: 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) Start: 06-17-2022 End: 06-17-2022 Patient encounter procedure Tyrell Daily MD Work Phone: Department of Plastic Surgery Comment on above: 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) Start: 05-20-2022 End: 05-20-2022 Patient encounter procedure Tyrell Daily MD Work Phone: Department of Plastic Surgery Comment on above: 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) Start: 05-13-2022 End: 05-13-2022 Office outpatient visit 40 minutes Barbara Santiago APRN-PHARMACEUTICAL WORKER Work Phone: Medical Oncology at [facility] Comment on above: Malignant neoplasm o f lower-inner quadrant of right breast of female, estrogen receptor positive (Primary Dx) Start: 04-29-2022 End: 04-29-2022 Admission to same day surgery center Tyrell Daily MD Work Phone: Department of Plastic Surgery Comment on above: 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) Start: 04-22-2022 End: 04-22-2022 Postop follow up visit related to original px Tyrell Daily MD Work Phone: Department of Plastic Surgery Comment on above: Acquired absence of breast, unspecified laterality (Primary Dx) Start: 04-22-2022 End: 04-22-2022 Postop follow up visit related to original px Stuart Smallwood MD Work Phone: Division of Surgical Oncology Comment on above: Malignant neoplasm o f lower-inner quadrant of right breast of female, estrogen receptor positive (Primary Dx) Start: 04-15-2022 End: 04-15-2022 Postop follow up visit related to original px Stuart Smallwood MD Work Phone: Division of Surgical Oncology Comment on above: Malignant neoplasm o f lower-inner quadrant of right breast of female, estrogen receptor positive (Primary Dx); Personal history of malignant neoplasm of breast Acquired absence of breast, unspecified laterality (Primary Dx) Start: 04-10-2022 End: 04-11-2022 Subsequent hospital visit by physician Effie Dev PAPER WOOD CUTTER-PHARMACEUTICAL WORKER Work Phone: [facility] PreOp CCCT 4 Comment on above: Arrived Malignant neoplasm o f lower-inner quadrant of right breast of female, estrogen receptor positive Start: 03-20-2022 End: 03-20-2022 Office outpatient new 60 minutes Mel Giron MD Work Phone: Medical Oncology at [facility] Comment on above: Malignant neoplasm o f lower-inner quadrant of right breast of female, estrogen receptor positive Start: 03-20-2022 End: 03-20-2022 Office outpatient new 60 minutes Deepti Gomez MD, PhD Work Phone: Department of Radiation Oncology Comment on above: Malignant neoplasm o f lower-inner quadrant of right breast of female, estrogen receptor positive (Primary Dx) Start: 03-18-2022 End: 03-18-2022 Patient encounter status Marlene Olivas PAPER WOOD CUTTER-PHARMACEUTICAL WORKER Work Phone: [facility] Start: 03-18-2022 End: 03-18-2022 Subsequent hospital visit by physician Marlene Olivas PAPER WOOD CUTTER-PHARMACEUTICAL WORKER Work Phone: [facility] Start: 03-11-2022 End: 03-11-2022 Subsequent hospital visit by physician Marlene Olivas PAPER WOOD CUTTER-PHARMACEUTICAL WORKER Work Phone: Medical Specialties Outpatient [facility] Comment on above: Canceled (Cancel Spring son Not Listed - Please provide detailed information) Start: 03-04-2022 End: 03-04-2022 Office consultation new/estab patient 40 min Tyrell Daily MD Work Phone: Department of Plastic Surgery Comment on above: Malignant neoplasm o f lower-inner quadrant of right breast of female, estrogen receptor positive Start: 02-27-2022 End: 02-27-2022 Patient encounter status Marlene Olivas PAPER WOOD CUTTER-PHARMACEUTICAL WORKER Work Phone: Department of Radiology Start: 02-27-2022 End: 02-27-2022 Subsequent hospital visit by physician Marlene Oliavs APRN-PHARMACEUTICAL WORKER Work Phone: Department of Radiology Comment on above: Arrived Start: 02-24-2022 End: 02-24-2022 Subsequent hospital visit by physician Stuart Smallwood MD Work Phone: Department of Radiology Comment on above: Arrived Start: 02-24-2022 End: 02-24-2022 Office outpatient new 60 minutes Stuart Smallwood MD Work Phone: Division of Surgical Oncology Comment on above: Malignant neoplasm o f lower-inner quadrant of right breast of female, estrogen receptor positive (Primary Dx); Pre-op testing Start: 02-24-2022 End: 02-24-2022 Patient encounter status Stuart Smallwood MD Work Phone: Division of Surgical Oncology Start: 02-18-2022 End: 02-18-2022 Subsequent hospital visit by physician Effie Méndez APRN-PHARMACEUTICAL WORKER Work Phone: [facility]ammography at [facility] Comment on above: Arrived Start: 01-20-2022 End: 01-20-[address] TUCKER HAYWOOD Facility:[facility] Start: 01-15-2022 End: 01-16-[address] TUCKER HAYWOOD Facility:[facility] Start: 06-16-2021 End: 06-17-[address] TUCKER HAYWOOD Facility:[facility] Procedures Date Procedure Procedure Detail Performing Clinician Start: 10-15-2023 CT of thorax with contrast MD Tucker Haywood Work Phone: Start: 01-27-2023 Diagnostic mammograp hy computer-aided detcj uni Effie Méndez APRN-PHARMACEUTICAL WORKER Work Phone: Start: 08-12-2022 Dxa bone density ayana dy 1/> sites axial amado Giron MD Work Phone: Start: 04-10-2022 IMPLANT RECORD Other Ot her Start: 04-10-2022 CONTINUOUS CARDIAC MONITORING STRIP Other Other Start: 04-10-2022 Inj radioactive trac er for id of sentinel node Effie Méndez APRN-PHARMACEUTICAL WORKER Work Phone: Start: 04-10-2022 CONTINUOUS CARDIAC MONITORING STRIP Other Other Start: 03-18-2022 Myocardial spect mul tiple studies Marlene Olivas APRN-EDEN Work Phone: Start: 02-27-2022 MRI w/o fol w/cont, breast, Marlene Olivas APRN-EDEN Work Phone: Start: 02-24-2022 Radiologic exam ches t 2 views Marlene Olivas APRN-EDEN Work Phone: Start: 02-24-2022 End: 02-24-2022 Us breast uni real time with image limited Marlene MACHADO Work Phone: Start: 02-18-2022 MG Breast Views Effie Calzadatereza ODOM-EDEN Work Phone: Start: 02-21-2021 Lipid 1996 panel - S adelfo or Plasma Bret Oneal PA-C Work Phone: Plan of Treatment Date Care Activity Detail Author Start: 07-15-2026 Diabetes Screening Diabetes Screening [facility] Start: 02-21-2026 Lipid panel Lipid Screening [facility] Start: 07-15-2024 Potassium [Moles/volume] in Serum or Plasma POTASSIUM [facility] Start: 04-30-2024 Influenza vaccination Influenza Vaccine (Season Ended) [facility] Start: 03-08-2024 End: 03-08-2024 Patient encounter procedure 03/08/2024 10:00 AM EDT Office Visit Medical Oncology at The [address], [address] [place] [address] Barbara Santiago APRN-EDEN [address] [place] [address] Medical Oncology at [facility] Start: 03-01-2024 End: 03-01-2024 Patient encounter procedure [facility] Start: 01-28-2024 End: 02-27-2024 MG Breast - left Diagnostic MAMMO DIAGNOSTIC LEFT Imaging Routine Malignant neoplasm of lower-inner quadrant of right breast of female, estrogen receptor positive Expected: 01/28/2024 (Approximate), Expires: 02/27/2024 [facility] Work Phone: Comment on above: Expected: 01/28/2024 (Approximate), Expi res: 02/27/2024 Start: 01-28-2024 Screening for malignant neoplasm of breast [facility] Start: 10-13-2023 End: 10-13-2023 Patient encounter procedure Department of Radiation Oncology Start: 2023 Advance Directive Discussion Advance Directive Discussion [facility] Start: 09-08-2023 End: 09-08-2023 Patient encounter procedure 09/08/2023 8:30 AM EST Office Visit Medical Oncology at [facility] [address] [facility] 4th Floor, [address] [place] [phone] Mel Giron MD [address] [place] [address] Medical Oncology at [facility] Start: 09-01-2023 End: 09-01-2023 Patient encounter procedure 09/01/2023 9:00 AM EST Office Visit Department of Plastic Surgery [address] [facility] [address] [place] [phone] Tyrell Daily MD [address] [facility] [address] [place] [phone] Department of Plastic Surgery Start: 08-30-2023 Behavioral Health Screening Behavioral Health Screening [facility] Start: 08-12-2023 Screening for osteoporosis DEXA SCAN DISCUSSION [facility] Start: 07-21-2023 End: 07-21-2023 Patient encounter procedure 07/21/2023 1:30 PM EST Office Visit Department of Plastic Surgery [address] [facility] [address] [place] [phone] Tyrell Daily MD [address] [facility] [address] [place] [address] Department of Plastic Surgery Start: 07-15-2023 End: 07-15-2023 Admission to same day surgery center 07/15/2023 11:30 AM EST - 07/15/2023 2:30 PM EST Surgery Perioperative Services at The [place] [address] [place] [phone] Tyrell Daily MD [address] [facility] [address] [place] [address] CAPSULECTOMY BREAST Perioperative Services at The [facility] Comment on above: CAPSULECTOMY BREAST Start: 07-15-2023 End: 07-15-2023 Periprosthetic capsulectomy breast CAPSULECTOMY BREAST Acquired absence of right breast and nipple 07/15/2023 11:30 AM EST [facility] Start: 07-15-2023 End: 07-15-2023 Reduction mammaplasty BREAST REDUCTION Acquired absence of right breast and nipple 07/15/2023 11:30 AM EST [facility] Start: 07-15-2023 Subsequent hospital visit by physician 07/15/2023 11:30 AM EST Hospital Encounter Perioperative Services at The [place] [address] [place] [phone] Tyrell Daily MD [address] [facility] [address] [place] [address] Acquired absence of right breast and nipple Perioperative Services at The [facility] Comment on above: Acquired absence of right breast and nip ple Start: 07-15-2023 End: 07-15-2023 Admission to same day surgery center 07/15/2023 8:30 AM EST - 07/15/2023 11:30 AM EST Surgery Perioperative Services at The [place] [address] [place] [address] Tyrell Daily MD [address] [address] CAPSULECTOMY BREAST Perioperative Services at The [facility] Comment on above: CAPSULECTOMY BREAST Start: 07-15-2023 End: 07-15-2023 Periprosthetic capsulectomy breast CAPSULECTOMY BREAST Acquired absence of right breast and nipple 07/15/2023 8:30 AM EST [facility] Start: 07-15-2023 End: 07-15-2023 Reduction mammaplasty BREAST REDUCTION Acquired absence of right breast and nipple 07/15/2023 8:30 AM EST [facility] Start: 07-15-2023 Subsequent hospital visit by physician 07/15/2023 8:30 AM EST Hospital Encounter Perioperative Services at The [facility] [address] [place] [phone] Tyrell Daily MD [address] [address] Acquired absence of right breast and nipple Perioperative Services at The [facility] Comment on above: Acquired absence of right breast and nip ple Start: 07-07-2023 CT Chest WO contrast [facility] Start: 07-07-2023 CT of chest without contrast CT chest wo con high res [facility] Start: 07-02-2023 End: 07-02-2023 Anesthesia consultation 07/02/2023 8:30 AM EDT Pre-Operative Nurse Assessment [facility] [address] [place] [phone] Tyrell Daily MD [address] [phone] [facility] Start: 06-30-2023 End: 06-30-2023 Patient encounter procedure 06/30/2023 1:00 PM EDT Office Visit Department of Plastic Surgery [address] [facility] [address] [place] [address] Tyrell Daily MD [address] [facility] [address] [place] [address] Department of Plastic Surgery Start: 04-30-2023 Covid-19 Vaccine ( season) Covid-19 Vaccine () [facility] Start: 04-30-2023 Influenza vaccination [facility] Start: 04-22-2023 End: 05-23-2023 MG Breast Views MAMMO DIAGNOSTIC WITH KATHY LEFT Imaging Routine Malignant neoplasm of lower-inner quadrant of right breast of female, estrogen receptor positive Expected: 04/22/2023, Expires: 05/23/2023 [facility] Comment on above: Expected: 04/22/2023, Expires: 3 Start: 04-15-2023 End: 05-16-2023 MG Breast Views MAMMO DIAGNOSTIC WITH KATHY LEFT Imaging Routine Personal history of malignant neoplasm of breast Expected: 04/15/2023, Expires: 05/16/2023 [facility] Comment on above: Expected: 04/15/2023, Expires: 3 Start: 04-01-2023 Potassium [Moles/volume] in Serum or Plasma POTASSIUM [facility] Start: 03-10-2023 End: 03-10-2023 Patient encounter procedure Department of Plastic Surgery Start: 02-24-2023 Potassium [Moles/volume] in Serum or Plasma POTASSIUM [facility] Start: 02-02-2023 End: 02-02-2023 Patient encounter procedure [facility] at [facility] Start: 01-27-2023 End: 01-27-2023 Patient encounter procedure 01/27/2023 Office Visit Surgical Oncology Stuart Smallwood MD [address] [facility] [address], [address] [place] [address] Division of Surgical Oncology Start: 01-27-2023 End: 01-27-2023 Patient encounter procedure 01/27/2023 Appointment Mammography Tucker Haywood MD [address] [facility] [place] [address] [facility] Start: 01-20-2023 MAMMOGRAM LEFT MAMMOGRAM LEFT [facility] Start: 01-20-2023 Screening for malignant neoplasm of breast MAMMOGRAM LEFT [facility] Start: 01-20-2023 Screening mammography MAMMOGRAM SCREENING DISCUSSION [facility] Start: 01-15-2023 Screening mammography MAMMOGRAM SCREENING DISCUSSION [facility] Start: 12-09-2022 End: 12-09-2022 Patient encounter procedure Department of Plastic Surgery Start: 10-07-2022 End: 10-07-2022 Patient encounter procedure 10/07/2022 Office Visit Radiation Oncology Barbara Escobedo, PAPER WOOD CUTTER-PHARMACEUTICAL WORKER [address] [place] [phone] Department of Radiation Oncology Start: 09-24-2022 End: 09-24-2022 Telemedicine consultation with patient 09/24/2022 Telemedicine Multispecialty Raegan Sullivan, PAPER WOOD CUTTER-PHARMACEUTICAL WORKER [address] [facility] 6th [place] [phone] Supportive Care at [facility] Start: 09-11-2022 End: 09-11-2022 ambulatory 09/11/2022 Telemed Clin Support Radiation Oncology Department of Radiation Oncology Start: 09-07-2022 End: 09-07-2022 Clinical Support Encounter 09/07/2022 Clinical Support Encounter Radiation Oncology Department of Radiation Oncology Start: 09-04-2022 End: 09-04-2022 Clinical Support Encounter Department of Radiation Oncology Start: 09-03-2022 End: 09-03-2022 Clinical Support Encounter 09/03/2022 Clinical Support Encounter Radiation Oncology Department of Radiation Oncology Start: 09-02-2022 End: 09-02-2022 Clinical Support Encounter 09/02/2022 Clinical Support Encounter Radiation Oncology Department of Radiation Oncology Start: 09-01-2022 End: 09-01-2022 Clinical Support Encounter 09/01/2022 Clinical Support Encounter Radiation Oncology Department of Radiation Oncology Start: 08-28-2022 End: 08-28-2022 Clinical Support Encounter Department of Radiation Oncology Start: 08-27-2022 End: 08-27-2022 Clinical Support Encounter 08/27/2022 Clinical Support Encounter Radiation Oncology Department of Radiation Oncology Start: 08-26-2022 End: 08-26-2022 Clinical Support Encounter 08/26/2022 Clinical Support Encounter Radiation Oncology Department of Radiation Oncology Start: 08-25-2022 End: 08-25-2022 Clinical Support Encounter 08/25/2022 Clinical Support Encounter Radiation Oncology Department of Radiation Oncology Start: 08-20-2022 End: 08-20-2022 Clinical Support Encounter 08/20/2022 Clinical Support Encounter Radiation Oncology Department of Radiation Oncology Start: 08-19-2022 End: 08-19-2022 Clinical Support Encounter 08/19/2022 Clinical Support Encounter Radiation Oncology Department of Radiation Oncology Start: 08-18-2022 End: 08-18-2022 Patient encounter procedure 08/18/2022 Office Visit Radiation Oncology Deepti Gomez MD, PhD [address] [place] [address] Department of Radiation Oncology Start: 08-18-2022 End: 08-18-2022 Clinical Support Encounter 08/18/2022 Clinical Support Encounter Radiation Oncology Department of Radiation Oncology Start: 08-17-2022 End: 08-17-2022 Clinical Support Encounter 08/17/2022 Clinical Support Encounter Radiation Oncology Department of Radiation Oncology Start: 08-14-2022 End: 08-14-2022 Clinical Support Encounter 08/14/2022 Clinical Support Encounter Radiation Oncology Department of Radiation Oncology Start: 08-14-2022 End: 08-14-2022 Clinical Support Encounter Department of Radiation Oncology Start: 08-13-2022 End: 08-13-2022 Clinical Support Encounter 08/13/2022 Clinical Support Encounter Radiation Oncology Department of Radiation Oncology Start: 08-13-2022 End: 08-13-2022 Clinical Support Encounter 08/13/2022 Clinical Support Encounter Radiation Oncology Deepti Gomez MD, PhD [address] [place] [address] Department of Radiation Oncology Start: 08-12-2022 End: 08-12-2022 Clinical Support Encounter 08/12/2022 Clinical Support Encounter Radiation Oncology Department of Radiation Oncology Start: 08-12-2022 End: 08-12-2022 Patient encounter procedure 08/12/2022 Office Visit Plastic Surgery Tyrell Daily MD [address] [facility] [address] [place] [phone] Department of Plastic Surgery Start: 08-12-2022 End: 08-12-2022 Patient encounter procedure Department of Radiology Start: 08-11-2022 End: 08-11-2022 Clinical Support Encounter 08/11/2022 Clinical Support Encounter Radiation Oncology Bubba Lopez MD [address] [facility] 1st Floor, [address] [place] [address] Department of Radiation Oncology Start: 08-06-2022 End: 08-06-2022 Admission to same day surgery center 08/06/2022 Surgery Multispecialty Tyrell Daily MD [address] [facility] [address] [place] [address] EXCHANGE 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 W/ PERMANENT IMPLANT CCCT PERIOP Comment on above: EXCHANGE 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 W/ PERMANENT IM PLANT Start: 08-06-2022 End: 08-06-2022 Open periprosthetic capsulotomy breast CAPSULOTOMY BREAST Acquired absence of right breast and nipple 08/06/2022 10:30 AM EST [facility] Start: 08-06-2022 End: 08-06-2022 Reduction mammaplasty BREAST REDUCTION Acquired absence of right breast and nipple 08/06/2022 10:30 AM EST [facility] Start: 08-06-2022 End: 08-06-2022 Replacement tiss family practice physician permanent prosthesis EXCHANGE 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 W/ PERMANENT IMPLANT Acquired absence of right breast and nipple 08/06/2022 10:30 AM EST [facility] Start: 08-06-2022 End: 08-06-2022 Smpl repair scalp/neck/ax/genit/trun k 2.6-7.5cm REPAIR WOUND SIMPLE AXILLAE TRUNK Acquired absence of right breast and nipple 08/06/2022 10:30 AM EST [facility] Start: 08-06-2022 Subsequent hospital visit by physician 08/06/2022 Hospital Encounter Multispecialty Tyrell Daily MD [address] [facility] [address] [place] [address] Acquired absence of right breast and nipple CCCT PERIOP Comment on above: Acquired absence of right breast and nip ple Start: 08-04-2022 End: 08-04-2022 Patient encounter procedure Department of Radiation Oncology Start: 07-31-2022 End: 07-31-2022 Patient encounter procedure Department of Radiation Oncology Start: 07-22-2022 End: 07-22-2022 Patient encounter procedure 07/22/2022 Office Visit Plastic Surgery Tyrell Daily MD [address] [facility] [address] [place] [address] Department of Plastic Surgery Start: 07-08-2022 End: 07-08-2022 Patient encounter procedure 07/08/2022 Office Visit Plastic Surgery Tyrell Daily MD [address] [place] [address] [place] [address] Department of Plastic Surgery Start: 06-29-2022 End: 06-29-2022 Admission to same day surgery center 06/29/2022 Surgery Multispecialty Tyrell Daily MD [address] [facility] [address] [place] [address] EXCHANGE 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 W/ PERMANENT IMPLANT CCCT PERIOP Comment on above: EXCHANGE 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 W/ PERMANENT IM PLANT Start: 06-29-2022 End: 06-29-2022 Open periprosthetic capsulotomy breast CAPSULOTOMY BREAST Acquired absence of right breast and nipple 06/29/2022 11:45 AM EDT [facility] Start: 06-29-2022 End: 06-29-2022 Reduction mammaplasty BREAST REDUCTION Acquired absence of right breast and nipple 06/29/2022 11:45 AM EDT [facility] Start: 06-29-2022 End: 06-29-2022 Replacement tiss family practice physician permanent prosthesis EXCHANGE 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 W/ PERMANENT IMPLANT Acquired absence of right breast and nipple 06/29/2022 11:45 AM EDT [facility] Start: 06-29-2022 End: 06-29-2022 Smpl repair scalp/neck/ax/genit/trun k 2.6-7.5cm REPAIR WOUND SIMPLE AXILLAE TRUNK Acquired absence of right breast and nipple 06/29/2022 11:45 AM EDT [facility] Start: 06-29-2022 Subsequent hospital visit by physician 06/29/2022 Hospital Encounter Multispecialty Tyrell Daily MD [address] [facility] [address] [place] [address] Acquired absence of right breast and nipple CCCT PERIOP Comment on above: Acquired absence of right breast and nip ple Start: 05-27-2022 End: 05-27-2022 Admission to same day surgery center 05/27/2022 Clinical Support Encounter Plastic Surgery Department of Plastic Surgery Start: 05-20-2022 End: 05-20-2022 Admission to same day surgery center 05/20/2022 Clinical Support Encounter Plastic Surgery Department of Plastic Surgery Start: 05-13-2022 End: 05-13-2023 Bone density scan BONE DENSITY AXIAL (HIP, PELVIS, SPINE) Imaging Routine Malignant neoplasm of lower-inner quadrant of right breast of female, estrogen receptor positive Expected: 05/13/2022, Expires: 05/13/2023 [facility] Work Phone: Comment on above: Expected: 05/13/2022, Expires: Start: 05-13-2022 End: 05-13-2022 Admission to same day surgery center 05/13/2022 Clinical Support Encounter Plastic Surgery Department of Plastic Surgery Start: 05-06-2022 End: 05-06-2022 Patient encounter procedure 05/06/2022 Office Visit Oncology Mel Giron MD [address] [place] [address] Medical Oncology at [facility] Start: 05-06-2022 End: 05-06-2022 Admission to same day surgery [place] Department of Plastic Surgery Start: 04-30-2022 Influenza vaccination [facility] Start: 04-29-2022 End: 04-29-2022 Admission to same day surgery center 04/29/2022 Clinical Support Encounter Plastic Surgery Department of Plastic Surgery Start: 04-22-2022 End: 04-22-2022 Patient encounter procedure 04/22/2022 Office Visit Plastic Surgery Tyrell Daily MD [address] [facility] [address] [place] [address] Department of Plastic Surgery Start: 04-22-2022 End: 04-22-2022 Patient encounter procedure 04/22/2022 Office Visit Surgical Oncology Stuart Smallwood MD [address] [facility] [address]rd Floor, [address] [place] [address] Division of Surgical Oncology Start: 04-15-2022 End: 04-15-2022 Patient encounter procedure Division of Surgical Oncology Start: 04-10-2022 End: 04-10-2022 Admission to same day surgery center 04/10/2022 Surgery Multispecialty Stuart Smallwood MD [address] [facility] 3rd Floor, [address] [place] [address] MASTECTOMY COMPLETE CCCT PERIOP Comment on above: MASTECTOMY COMPLETE Start: 04-10-2022 End: 04-10-2022 Axillary lymphadenectomy complete LYMPHADENECTOMY AXILLARY DEEP Malignant neoplasm of lower-inner quadrant of right breast of female, estrogen receptor positive 04/10/2022 7:15 AM EDT [facility] Start: 04-10-2022 End: 04-10-2022 Brst rcnstj immt/dlyd w/tiss family practice physician sbsq xpnsj 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 Malignant neoplasm of lower-inner quadrant of right breast of female, estrogen receptor positive 04/10/2022 7:15 AM EDT [facility] Start: 04-10-2022 End: 04-10-2022 Bx/exc lymph node open deep axillary node BX LYMPH NODE AXILLARY DEEP Malignant neoplasm of lower-inner quadrant of right breast of female, estrogen receptor positive 04/10/2022 7:15 AM EDT [facility] Start: 04-10-2022 End: 04-10-2022 Inj radioactive tracer for id of sentinel node INJECTION RADIOACTIVE TRACER FOR SENTINEL NODE IDENTIFICATION Malignant neoplasm of lower-inner quadrant of right breast of female, estrogen receptor positive 04/10/2022 7:15 AM EDT [facility] Start: 04-10-2022 End: 04-10-2022 Mastectomy simple complete MASTECTOMY COMPLETE Malignant neoplasm of lower-inner quadrant of right breast of female, estrogen receptor positive 04/10/2022 7:15 AM EDT [facility] Start: 04-10-2022 End: 04-10-2022 Patient encounter procedure 04/10/2022 Appointment Nuclear Medicine Effie Méndez, LEI-EDEN [address] [place] [address] Nuclear Med [facility] CCCT 4 Start: 04-10-2022 Subsequent hospital visit by physician CCCT PERIOP Comment on above: Malignant neoplasm of lower-inner quadra nt of right breast of female, estrogen receptor positive Start: 04-01-2022 End: 04-01-2022 ambulatory 04/01/2022 Rehab Services Visit Physical Therapy Stuart Smallowod MD [address] [facility] 3rd Floor, [address] [place] [address] Harriett Spencer, PT [address] [facility] [address] [place] [address] [facility] Start: 04-01-2022 End: 04-01-2022 Patient encounter procedure Department of Plastic Surgery Start: 03-20-2022 End: 03-20-2022 Patient encounter procedure 03/20/2022 Office Visit Oncology Mel Giron MD [address] [place] [address] Medical Oncology at [facility] Start: 03-20-2022 End: 03-20-2022 Patient encounter procedure 03/20/2022 Office Visit Radiation Oncology Deepti Gomez MD, PhD [address] [place] [address] Department of Radiation Oncology Start: 03-11-2022 End: 03-11-2022 Patient encounter procedure 03/11/2022 Appointment Nuclear Medicine Marlene Olivas, PAPER WOOD CUTTER-PHARMACEUTICAL WORKER [address] [facility] [address] [place] [address] Medical Specialties Outpatient Care [facility] Start: 03-06-2022 End: 03-06-2022 Patient encounter procedure 03/06/2022 Office Visit Radiation Oncology Edwin Samayoa MD [address] [facility] 1st Floor, [address] [place] [address] Department of Radiation Oncology Start: 03-04-2022 End: 03-04-2022 Patient encounter procedure 03/04/2022 Office Visit Plastic Surgery Tyrell Daily MD [address] [facility] [address] [place] [address] Department of Plastic Surgery Start: 02-27-2022 Subsequent hospital visit by physician 02/27/2022 Hospital Encounter Magnetic Resonance Imaging Marlene Olivas, PAPER WOOD CUTTER-PHARMACEUTICAL WORKER [address] [facility] [address]nd [place] [address] Department of Radiology Start: 02-24-2022 End: 03-26-2023 MR Breast - bilateral WO and W contrast IV MRI BREAST BILATERAL WITH AND WITHOUT CONTRAST Imaging STAT Pre-op testing Expected: 02/24/2022 (Approximate), Expires: 03/26/2023 [facility] Comment on above: Expected: 02/24/2022 (Approximate), Expi res: 03/26/2023 Start: 02-24-2022 End: 02-24-2023 SPECT Heart perfusion at rest and W stress and W radionuclide IV NUC MYOCARD PERF STRESS MIBI PHARM Cardiac Nuclear Medicine Routine Malignant neoplasm of lower-inner quadrant of right breast of female, estrogen receptor positive Pre-op testing Expected: 02/24/2022, Expires: 02/24/2023 [facility] Comment on above: Expected: 02/24/2022, Expires: Start: 02-24-2022 End: 02-24-2023 Standard ECG [facility] Comment on above: Expected: 02/24/2022 (Approximate), Expi res: 02/24/2023 Start: 02-24-2022 End: 02-24-2022 Patient encounter procedure 02/24/2022 Office Visit Surgical Oncology Stuart Smallwood MD [address] [facility] 3rd Floor, [address] [place] [address] Division of Surgical Oncology Start: 2018 RSV Vaccine (1 - 1-dose 60+ series) RSV Vaccine (1 - 1-dose 60+ series) [facility] Start: 10-12-2017 Pneumococcal vaccination PNEUMOCOCCAL VACCINE SERIES (2 - PCV) [facility] Start: 10-12-2017 PNEUMOCOCCAL VACCINE SERIES (2 - PCV) PNEUMOCOCCAL VACCINE SERIES (2 - PCV) [facility] Start: 10-12-2017 Pneumococcal Vaccine: 65+ (2 of 2 - PCV) Pneumococcal Vaccine: 65+ (2 of 2 - PCV) [facility] Start: 2008 Shingrix Vaccine (1 of 2) Shingrix Vaccine (1 of 2) [facility] Start: 2008 Zoster vaccine hzv live for subcutaneous use ZOSTER (SHINGLES) VACCINE (1 of 2) [facility] Start: 2003 Colonoscopy COLORECTAL CANCER SCREENING DISCUSSION [facility] Start: 2003 Screening for malignant neoplasm of colon [facility] Start: 1998 Fasting lipid profile LIPID SCREENING [facility] Start: 1998 Lipid panel LIPID SCREENING [facility] Start: 1979 Screening for malignant neoplasm of cervix CERVICAL CANCER SCREENING DISCUSSION [facility] Start: 1977 Third diphtheria, tetanus and acellular pertussis (DTaP) vaccination TDAP (ADULT) [facility] Start: 1977 Urine microalbumin profile DTaP,Tdap,Td Vaccine (1 - Tdap) [facility] Start: 1977 Zoster vaccine hzv live for subcutaneous use ZOSTER (SHINGLES) VACCINE (1 of 2) [facility] Start: 1976 Annual PCP Team Chronic Disease Visit Annual PCP Team Chronic Disease Visit [facility] Start: 1976 Hepatitis C screening Hepatitis C Screening [facility] Start: 1976 HIV screening HIV Screening [facility] Start: 1976 Tetanus vaccination TETANUS [facility] Start: 1973 HIV screening HIV SCREENING DISCUSSION [facility] Start: 1963 COVID-19 VACCINE (#1) COVID-19 VACCINE (#1) [facility] Start: 03-14-1959 COVID-19 VACCINE (#1) COVID-19 VACCINE (#1) [facility] Start: 1958 Hepatitis C antibody, confirmatory test HEPATITIS C VIRUS SCREENING [facility] Start: 1958 Hepatitis C screening HEPATITIS C VIRUS SCREENING [facility] Start: 1958 Tetanus vaccination TETANUS [facility] Start: 1958 Thyroid stimulating hormone measurement TSH [facility] Axillary lymphadenec jean complete LYMPHADENECTOMY AXILLARY DEEP Malignant neoplasm of lower-inner quadrant of right breast of female, estrogen receptor positive [facility] Brst rcnstj immt/dly d w/tiss family practice physician sbsq xpnsj 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 Malignant neoplasm of lower-inner quadrant of right breast of female, estrogen receptor positive [facility] Brst rcnstj immt/dly d w/tiss family practice physician sbsq xpnsj 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 Malignant neoplasm of lower-inner quadrant of right breast of female, estrogen receptor positive [facility] Bx/exc lymph node op en deep axillary node BX LYMPH NODE AXILLARY DEEP Malignant neoplasm of lower-inner quadrant of right breast of female, estrogen receptor positive [facility] Inj radioactive trac er for id of sentinel node INJECTION RADIOACTIVE TRACER FOR SENTINEL NODE IDENTIFICATION Malignant neoplasm of lower-inner quadrant of right breast of female, estrogen receptor positive [facility] Mastectomy simple complete MASTECTOMY COMPLETE Malignant neoplasm of lower-inner quadrant of right breast of female, estrogen receptor positive [facility] Open periprosthetic capsulotomy breast CAPSULOTOMY BREAST Acquired absence of right breast and nipple [facility] PERIOP RAD ONC SIMULATION RAD ONC SIMUL ATION Imaging Routine Malignant neoplasm of lower-inner quadrant of right breast of female, estrogen receptor positive 07/31/2022 3:02 PM EST [facility] Work Phone: Reduction mammaplasty BREAST RED UCTION Acquired absence of right breast and nipple [facility] PERIOP Replacement tiss family practice physician permanent prosthesis EXCHANGE 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 W/ PERMANENT IMPLANT Acquired absence of right breast and nipple [facility] SPECT Heart perfusio n at rest and W stress and W radionuclide IV NUC MYOCARD PERF STRESS MIBI PHARM Cardiac Nuclear Medicine Routine Malignant neoplasm of lower-inner quadrant of right breast of female, estrogen receptor positive Pre-op testing 03/18/2022 8:08 AM EDT [facility] Work Phone: SURG PATH REQUEST [facility] Comment on above: Release Upon Ordering for 1 Occurrences starting 04/10/2022, 1 completed End: 02-19-2025 XR Knee - left 4 Views XR KNEE GENERAL 4V AP BOTH/PA BOTH/LAT/MERC LEFT Radiology Routine Primary osteoarthritis of left knee 1 Occurrences starting 01/21/2024 until 02/19/2025 [facility] Work Phone: Comment on above: 1 Occurrences starting 01/21/2024 until 02/19/2025 End: 02-19-2025 XR Lower extremity - bilateral AP W standing XR LEG FRONTAL HIP TO ANKLE MECHANICAL AXIS Radiology Routine Primary osteoarthritis of left knee 1 Occurrences starting 01/21/2024 until 02/19/2025 [facility] Comment on above: 1 Occurrences starting 01/21/2024 until 02/19/2025 Immunizations Immunization Date Immunization Notes Care Provider Eva mendez 07-05-2020 influenza, injectabl e, quadrivalent, contains preservative Bret Dee PA-C Work Phone: [facility] 07-05-2020 influenza virus vacc ine, unspecified formulation Effie MACHADO Work Phone: [facility] 10-12-2016 pneumococcal polysaccharide vaccine, 23 valent Bret Dee PA-C Work Phone: [facility] 06-08-2016 influenza, injectabl e, quadrivalent, contains preservative Bret Washakie PA-C Work Phone: [facility] 05-30-2015 influenza, seasonal, injectable Bret Dee PA-C Work Phone: [facility] 05-30-2014 influenza, seasonal, injectable Bret Dee PA-C Work Phone: [facility] 05-30-2013 influenza virus vacc ine, unspecified formulation Bret Washakie PA-C Work Phone: [facility] Payers Date Payer Category Payer Medicare [id number] 2023 Medicare [id number] 2023 Unknown [id number] 2023 Medicare [id number] 2023 Self-pay [id number] 2018 Unknown [id number] 1959 Unknown [id number] 1958 Unknown [id number] 2.16.84 0.1.028811.3.579.2.593 1958 Unknown [id number] 2.16.84 0.1.176113.3.579.2.593 1958 Unknown [id number] 2.16.84 0.1.516340.3.579.2.593 1958 Unknown [id number] 2.16.84 0.1.842565.3.579.2.1259 1958 Unknown [id number] 2.16.84 0.1.001703.3.579.2.1259 1958 Unknown [id number] 2.16.84 0.1.064388.3.579.2.1259 1958 Unknown [id number] 2.16.84 0.1.082580.3.579.2.1259 1958 Unknown [id number] 2.16.84 0.1.845031.3.579.2.1259 1958 Unknown [id number] 2.16.84 0.1.997151.3.579.2.1259 1958 Unknown [id number] 2.16.84 0.1.000071.3.579.2.1259 1958 Unknown [id number] 2.16.84 0.1.512016.3.579.2.1259 1958 Unknown [id number] 2.16.84 0.1.147117.3.579.2.1259 1958 Unknown [id number] 2.16. 840.1.929860.3.579.2.594 1958 Unknown [id number] 2.16. 840.1.612930.3.579.2.594 1958 Unknown [id number] 2.16. 840.1.792214.3.579.2.594 1958 Unknown [id number] 2.16. 840.1.268243.3.579.2.594 1958 Unknown [id number] 2.16. 840.1.627598.3.579.2.594 1958 Unknown [id number] 2.16. 840.1.035363.3.579.2.594 1958 Unknown [id number] 2.16. 840.1.757853.3.579.2.594 1958 Unknown [id number] 2.16. 840.1.897855.3.579.2.594 1958 Unknown [id number] 2.16. 840.1.154582.3.579.2.594 Unknown Maren BC/BS [id number] Unknown [id number] 2.16.8 40.1.753983.3.579.2.531 Unknown [id number] 2.16.8 40.1.155172.3.579.2.531 Social History Date Type Detail Facility Tobacco smoking stat us MEIS Tobacco smoking consumption unknown [facility] Start: 1960 Sex Assigned At Not on file [facility] Start: 08-09-2013 End: 02-24-2022 Tobacco smoking status NHIS Never smoked tobacco [facility] Start: 08-09-2013 End: 02-24-2022 Tobacco use and exposure Smokeless tobacco non-user [facility] Start: 03-12-2021 End: 02-24-2022 Alcohol intake Current drinker of alcohol (finding) [facility] Start: 02-24-2022 End: 01-21-2024 Alcohol intake [facility] Start: 02-24-2022 End: 01-27-2023 [facility] Start: 02-24-2022 End: 01-27-2023 History SDOH Food Worry 1 [facility] Start: 02-24-2022 End: 01-27-2023 History SDOH Transport Med 2 [facility] Start: 03-31-2022 End: 08-12-2022 Exposure to SARS-CoV-2 (event) Not sure [facility] Start: 08-04-2022 End: 10-07-2022 Exposure to SARS-CoV-2 (event) Unable to assess [facility] Start: 09-24-2022 History SDOH Physical Activity DPW 4 [facility] Start: 09-24-2022 History SDOH Physical Activity MPS 6 [facility] Start: 01-27-2023 End: 01-21-2024 Sex Assigned At [employer] Other How hard is it for y ou to pay for the very basics like food, housing, medical care, and heating Not hard at all [facility] Do you feel stress - tense, restless, nervous, or anxious, or unable to sleep at night because your mind is troubled all the time - these days [OSQ] Not at all [facility] Work Phone: (I/We) worried gavin er (my/our) food would run out before (I/we) got money to buy more. Never true [facility] In the past 12 month s, was there a time when you were not able to pay the mortgage or rent on time? No [facility] Start: 1960 Sex Assigned At Female [facility] Start: 05-30-2013 Alcohol Comment social [facility] Start: 06-28-2020 Gender identity Identifies as female gender (finding) [facility] Start: 06-28-2020 Sexual orientation Heterosexual (finding) [facility] Medical Equipment Procedure Code Equipment Code Equipment Origin al Text Equipment Identifier Dates [employer] Tissue 350cc Style 9200 3 Suture Tab Magnetic - [id number] Start: 04-10-2022 Implant Breast 4 00cc Gel Texture Shell Barrier Layer P5cm - [id number] Start: 06-29-2022 Clinical Notes 02-24-2022 to 01-21-2024 Telephone Encounter - Bret Oneal PA-C - 01/21/2024 5:46 PM EDTTelephone Encounter - Bret Oneal PA-C - 01/21/2024 5:46 PM EDTTBret slater PA-C - 01/21/2024 8:40 AM EDTPatient Instructions Note Date & Type Note Facility 01-21-2024 Telephone encounter Note Discussed pt's case with Dr. Jasso. Recommending PA flexion WB view and FLEA prior to deciding on scope v UKA. If we indicate scope, then I would have her protect the WB post-op given the stress response; prior to surgery, she can protect WB to see if tibial bone pain contributions improve. Discussed above with pt. She will trial a course of protected WBing and I will send her an order for the x-rays through . Once we receive the XRs, will review with Dr. Jasso to determine the next steps. Bret Oneal PA-C [facility] 01-21-2024 Miscellaneous Notes Discussed pt's case with Dr. Jasso. Recommending PA flexion WB view and FLEA prior to deciding on scope v UKA. If we indicate scope, then I would have her protect the WB post-op given the stress response; prior to surgery, she can protect WB to see if tibial bone pain contributions improve. Discussed above with pt. She will trial a course of protected WBing and I will send her an order for the x-rays through . Once we receive the XRs, will review with Dr. Jasso to determine the next steps. Bret Oneal PA-C documented in this encounter [facility] 01-21-2024 Note HNO ID: [id number] Author: BRET ONEAL PA-C Service: ? Author Type: Physician Bridge Worker Type: Progress Notes Filed: 01/21/2024 09:06 Note Text: Patient: Malia Cook : 1960 Providers Referring physician: Tucker Haywood MD Primary care physician: Tucker Haywood MD Chief complaint: Patient presents with: Left Knee Pain Patient seen in subspecialty orthopedic knee consultation at the request of Tucker Haywood MD. The final recommendations will be communicated back to the requesting clinician by way of the shared medical record or letter via US mail. HPI: Malia Cook is a 63 year old female seen with a 2 months history of left knee pain. The onset of pain has been acute on chronic, and the pain is worsening. The pain is primarily localized to the Left medial hemijoint. PAIN EVALUATION 01/14/2024 1036 01/21/2024 0835 Pain Level: 5 3 Pain Location: Knee-Left Knee-Left Description: Burning;Stabbing Aching Duration Amount of Time: 24 6 Duration Units: Weeks Weeks Frequency: Intermittent Continuous Intervention/Comfort measure: Medication;Relaxation;Cold;Pillow support Medication The patient confirms preceding traumatic injury. The patient does have pain with weight-bearing. The patient does not have pain at night. The patient has no difficulty with placing shoes and socks. The pain is exacerbated with ADL's, pivoting, prolonged sitting, prolonged standing, recreational activities, and walking. She denies numbness, tingling, or electric shocks. She reports popping. Alleviating factors: Meds and Sitting Prior pertinent orthopedic surgery: ACL reconstruction in ~2004 Prior interventions: Physical therapy: Yes - unable to tolerate Injections/ aspiration: Yes 12/13/23 Bracing: Yes hinged knee brace Assistive devise: walker and crutches Pain medications: Ibuprofen and Tylenol Past Medical History PAST MEDICAL HISTORY Diagnosis Date Asthma GERD (gastroesophageal reflux disease) Hypothyroid Pneumonia Past Surgical History PAST SURGICAL HISTORY Procedure Laterality Date DANDC, DIAG AND/OR THERAPEUTIC 02/2012 Dilation AND curettage PAST SURGICAL HISTORY OF 2002 ACL repair--left PAST SURGICAL HISTORY OF 1999 Right heel replacement PAST SURGICAL HISTORY OF 1991 Left ulna nerve repair PAST SURGICAL HISTORY OF 1990 right TOS PAST SURGICAL HISTORY OF 1990 right and left carpal tunnel surgery PAST SURGICAL HISTORY OF 1979 laparoscopic, tubal ligation, appy SLING OPER STRES INCONTINENCE 2006 mid-urethral sling (TOT with rectocele repair) TOTAL ABDOM HYSTERECTOMY 10/2012 TLH/BSO robotic Family History FAMILY HISTORY Problem Relation Age of Onset Cervical Cancer Maternal Aunt Diabetes Father Hypertension Father Heart Failure Father Hypertension Mother Hyperlipidemia Mother Thyroid Sister thyroidectomy Colon Cancer Sister Diabetes Brother Diabetes Brother Diabetes Brother Diabetes Sister Stroke Son 6 Diabetes Son Social History Social History Tobacco Use Smoking status: Never Smokeless tobacco: Never Substance Use Topics Alcohol use: Yes Comment: social Drug use: No Allergies: ALLERGIES Allergen Reactions Imitrex [Sumatripta* Mental Status Change Medications Current Outpatient Medications: furosemide (LASIX) 20 mg tablet albuterol HFA (PROAIR HFA) 90 mcg/actuation inhaler grctcclbsnf-iqrgaixwn-jbyiddte (TRELEGY ELLIPTA) 200-62.5-25 mcg dsdv albuterol (PROVENTIL) 2.5 mg /3 mL (0.083 %) nebulizer solution esomeprazole (NEXIUM) 40 mg capsule Estradiol (ESTRACE) 0.5 mg tablet levothyroxine (SYNTHROID) 50 mcg tablet magnesium oxide 400 mg tablet Review of Systems: Reviewed and charted into [facility]. Physical Exam: PE reveals a female with the following vitals signs: Ht 160 cm (5' 3 ) Wt 63.5 kg (140 lb) BMI 24.80 kg/m? Body mass index is 24.8 kg/m?. General appearance: Well appearing, alert, in no acute distress, well-hydrated, well nourished. Psych: Mood and affect broad and appropriate Head: Normocephalic, no masses, lesions, tenderness or abnormalities Eyes: Anicteric sclera. Pupils are equally round and reactive to light. Extraocular movements are intact. ENT: Nares patent Lymph: There is no lymphadenopathy. The patient has a stable gait with no assistance. KNEE EXAM: Left Extension 0 degrees Flexion 110 degrees Straight leg raise intact Yes Knee effusion No Knee stable (Bora, Posterior drawer, Varus/ Valgus) Yes Point tenderness on palpation: tender to the Left medial and lateral joint line. Skin: Normal temperature without erythema Scars: Yes Motor/sensory function: Intact DP/PT pulses: 2+ HIP EXAM: Examination of the hips demonstrates fluid ROM without pain. Radiology Findings: (I have reviewed appropriate radiology images and reports.) 01/04/24 (outside) left knee MRI Impression Complete radial tear (more content not included)... [facility] 01-21-2024 History of Present illness Narrative Images from the original note were not included. Patient: Malia Cook : 1960 Providers Referring physician: Tucker Haywood MD Primary care physician: Tucker Haywood MD Chief complaint: Patient presents with: Left Knee Pain Patient seen in subspecialty orthopedic knee consultation at the request of Tucker Haywood MD. The final recommendations will be communicated back to the requesting clinician by way of the shared medical record or letter via US mail. HPI: Malia Cook is a 63 year old female seen with a 2 months history of left knee pain. The onset of pain has been acute on chronic, and the pain is worsening. The pain is primarily localized to the Left medial hemijoint. PAIN EVALUATION 01/14/2024 1036 01/21/2024 0835 Pain Level: 5 3 Pain Location: Knee-Left Knee-Left Description: Burning;Stabbing Aching Duration Amount of Time: 24 6 Duration Units: Weeks Weeks Frequency: Intermittent Continuous Intervention/Comfort measure: Medication;Relaxation;Cold;Pillow support Medication The patient confirms preceding traumatic injury. The patient does have pain with weight-bearing. The patient does not have pain at night. The patient has no difficulty with placing shoes and socks. The pain is exacerbated with ADL's, pivoting, prolonged sitting, prolonged standing, recreational activities, and walking. She denies numbness, tingling, or electric shocks. She reports popping. Alleviating factors: Meds and Sitting Prior pertinent orthopedic surgery: ACL reconstruction in ~2004 Prior interventions: Physical therapy: Yes - unable to tolerate Injections/ aspiration: Yes 12/13/23 Bracing: Yes hinged knee brace Assistive devise: walker and crutches Pain medications: Ibuprofen and Tylenol Past Medical History PAST MEDICAL HISTORY Diagnosis Date Asthma GERD (gastroesophageal reflux disease) Hypothyroid Pneumonia Past Surgical History PAST SURGICAL HISTORY Procedure Laterality Date D&C, DIAG AND/OR THERAPEUTIC 02/2012 Dilation & curettage PAST SURGICAL HISTORY OF 2002 ACL repair--left PAST SURGICAL HISTORY OF 1999 Right heel replacement PAST SURGICAL HISTORY OF 1991 Left ulna nerve repair PAST SURGICAL HISTORY OF 1990 right TOS PAST SURGICAL HISTORY OF 1990 right and left carpal tunnel surgery PAST SURGICAL HISTORY OF 1979 laparoscopic, tubal ligation, appy SLING OPER STRES INCONTINENCE 2006 mid-urethral sling (TOT with rectocele repair) TOTAL ABDOM HYSTERECTOMY 10/2012 TLH/BSO robotic Family History FAMILY HISTORY Problem Relation Age of Onset Cervical Cancer Maternal Aunt Diabetes Father Hypertension Father Heart Failure Father Hypertension Mother Hyperlipidemia Mother Thyroid Sister thyroidectomy Colon Cancer Sister Diabetes Brother Diabetes Brother Diabetes Brother Diabetes Sister Stroke Son 6 Diabetes Son Social History Social History Tobacco Use Smoking status: Never Smokeless tobacco: Never Substance Use Topics Alcohol use: Yes Comment: social Drug use: No Allergies: ALLERGIES Allergen Reactions Imitrex [Sumatripta* Mental Status Change Medications Current Outpatient Medications: furosemide (LASIX) 20 mg tablet albuterol HFA (PROAIR HFA) 90 mcg/actuation inhaler irugvufjhku-fcmbxkwsi-krfgyowm (TRELEGY ELLIPTA) 200-62.5-25 mcg dsdv albuterol (PROVENTIL) 2.5 mg /3 mL (0.083 %) nebulizer solution esomeprazole (NEXIUM) 40 mg capsule Estradiol (ESTRACE) 0.5 mg tablet levothyroxine (SYNTHROID) 50 mcg tablet magnesium oxide 400 mg tablet Review of Systems: Reviewed and charted into [facility]. Physical Exam: PE reveals a female with the following vitals signs: Ht 160 cm (5' 3 ) Wt 63.5 kg (140 lb) BMI 24.80 kg/m Body mass index is 24.8 kg/m . General appearance: Well appearing, alert, in no acute distress, well-hydrated, well nourished. Psych: Mood and affect broad and appropriate Head: Normocephalic, no masses, lesions, tenderness or abnormalities Eyes: Anicteric sclera. Pupils are equally round and reactive to light. Extraocular movements are intact. ENT: Nares patent Lymph: There is no lymphadenopathy. The patient has a stable gait with no assistance. KNEE EXAM: Left Extension 0 degrees Flexion 110 degrees Straight leg raise intact Yes Knee effusion No Knee stable (Bora, Posterior drawer, Varus/ Valgus) Yes Point tenderness on palpation: tender to the Left medial and lateral joint line. Skin: Normal temperature without erythema Scars: Yes Motor/sensory function: Intact DP/PT pulses: 2+ HIP EXAM: Examination of the hips demonstrates fluid ROM without pain. Radiology Findings: (I have reviewed appropriate radiology images and reports.) 01/04/24 (outside) left knee MRI Impression Complete radial tear of the posterior horn of the medial meniscus. Bone marrow edema within the medial tibial plateau may be degenerative, reactive to the medial meniscus tear, or due to 6 mm developing subcortical insufficiency fracture. 12/13/23 (outside) left knee XR Imaging Result: Bilateral standing PA, bilateral sunrise, and lateral of the affected knee were imaged today in the office. Patient has evidence of prior ACL reconstruction with large screw to the tibial post. Developing arthritic findings of both patellofemoral joints moderate with no significant subluxation. Mild arthritic findings of weight-bearing mediolateral compartments to both knees. No acute fracture evidence of bony tumor seen. Assessment: (S83.242A) Acute medial meniscus tear of left knee, initial encounter (primary encounter diagnosis) (M17.12) Primary osteoarthritis of left knee Plan: Based upon the evaluation today and after discussions with the patient, we will proceed with the following: -Continue rest, ice, OTC pain medication, bracing, and activity modification -Will discuss case with Dr. Jasso as patient is interested in surgical options - SALK vs UKA? -RTC - will contact pt after plan discussed with Dr. Jasso All patient questions were addressed and patient is satisfied with plan of care. Bret Oneal PA-C documented in this encounter [facility] 09-08-2023 History of Present illness Narrative Malia Cook was offered and declined a Medical Civil Service Worker for this exam/procedure/test 09/08/2023. Reason for Visit H/o right breast cancer S/p right mastectomy ([place]), 04/10/2022 S/p right breast reconstruction with tissue family practice physician, 04/10/2022 S/p right breast implant exchange, left breast reduction, 06/29/2022 S/p right postmastectomy radiation therapy, completed 09/04/2022 S/p right breast implant removal, left breast reduction, 07/15/2023 Postoperative assessment Subjective Presents for previously scheduled f/u. No c/o. Objective Right chest: incision intact, no masses or collections Left: incision intact, no masses or collections Assessment/Plan FU PRN documented in this encounter [facility] 09-08-2023 History of Present illness Narrative NOTE: VERIFY NAME, , ADDRESS FOR CLIENT(UPDATE [facility]) Bra Prosthesis Note Malia Cook is being seen today at [facility] by Olamide Euceda for a Breast Issue. Her surgery was on 2021. 06/2023. Mastectomy: R__X L__ Bilateral __ Lumpectomy: R__ L__ Bilateral__ Reconstruction: Yes_X_ No __ Reconstruction removed Yes_X_ No__ Orders Orders: Orders reviewed ___X_ Dx code ___Z85.3 Measurements Bra Band: 31.5 inches Fullest part of Bust: NA inches Final band size:36/38 Final cup size:A / AA Prosthesis/Form: Size: ABC [id number] SZ 4 09/08/23 Additional Visit information Client Visit: pre/post op___ routine/annual___X refit___ reorder/no fitting___. Goals that were discussed with patient: NANDO HAD A RT MAST W/ IMPLANT IN 2021. IN JUN 2023 HAD THE (R) IMPLANT REMOVED & (L) REDUCTION. NOW NEEDS A SHALLOW FORM. Reason for replacement of bras: NEW SURGERY. Reason for replacement of prosthesis: NEW SURGERY. Concerns/comments about fitting: NANDO GOT 3 DIFFERENT BRAS TO TRY WILL RETURN IN DECEMBER. BILLED . Did you instruct client on don/doffing procedures: Y Did you instruct client of care for pros/bras: Y Did you instruct client of warranty/storage of pros/bras: Y Purchased: ANI [id number] 36A PK, ANI 5722X 36A CH, ABC 131 MED NU, ABC [id number] SZ 4. Product ordered: - DID YOU RELEASE CARE INSTRUCTIONS Y documented in this encounter [facility] 09-08-2023 History of Present illness Narrative Nando Cook is a 62 y.o. female who presents to the [facility] for Chief Complaint Patient presents with Follow-up Letrozole Referring Provider: Marlene Olivas, APR* Breast Surgeon: Dr. Smallwood Plastic Surgeon: Dr. Daily Radiation Oncologist: Dr. Gomez PCP: Dr. 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 She is feeling well overall. She is tolerating letrozole well so far. Her hot flashes are almost gone. She continues to have vaginal dryness, but coconut oil is helpful. She denies vaginal bleeding or UTI symptoms. She reports pain in her ankles in the last day or two, but otherwise denies joint pain. She has been exercising more frequently, both walking on the treadmill and using a weighted hula hoop. She denies headaches, vision changes, chest pain, SOB, bowel issues, numbness or tingling, or rash. She denies any new breast concerns, but her right axilla is still tight and her right arm ROM is not back to baseline. Oncologic History: Briefly, Malia Cook's oncologic history is summarized by the followin01/15/22 Mammo/US: RIGHT BREAST: Macro lobulated spiculated opacity within the posterior lower inner quadrant corresponding to patient's palpable lump. Ultrasound evaluation demonstrates a 4.5 x 1.8 x 1.5 cm lobular, spiculated, heterogeneous mass at the 5 o'clock position, 3.2 cm from the nipple, concerning for malignancy 01/20/22 Right Breast Bx 5:00 position (1.9cm) Grade 1, Invasive Carcinoma with mixed ductal and lobular features ER >90%, TX 80-90%, HER 2 IHC: 2+, FISH ratio: 1.8, Average HER 2 signal/cell: 3.73 02/24/[address] Smallwood, MRI ordered 02/27/22 MRI Breast: The right breast biopsy-proven malignancy is identified in the inferior central and inferior medial aspects measuring 4.5 x 2.9 x 3.0 cm.There is no axillary lymph adenopathy 03/04/22 Genetic Testing: negative 03/20/22 Dr Giron to establish care 04/10/22: Right breast mastectomy. Pathology revealed invasive ductal carcinoma, grade 2, measuring 4.2 cm. 1 lymph node with macrometastatic carcinoma. [id number]. 09/04/2022: Completed adjuvant radiation 08/2022: Started anastrozole 12/2022: Stopped anastrozole r/t arthralgias, hot flashes, changes in eye sight. 04/2023: Switched to exemestane. 06/09/2023: Hold exemestane for two weeks r/t headaches, anxiety, arthralgias. 06/28/2023: Switched to letrozole Pertinent Physical Exam: Vitals: BP 121/75 Pulse 74 Temp 97.4 F (36.3 C) Resp 12 Wt 61.5 kg (135 lb 9.6 oz) BMI 24.02 kg/m Smoking Status Never Patient's Current Performance Status 0 General/Constitutional: Well developed, well nourished female, who looks their stated age. No acute distress. HEENT: Head: Normocephalic and atraumatic. Eyes: Pupils are equal, round, and reactive to light and accomodation. Extraocular movements are intact. Sclerae are anicteric. Neck: Supple, non-tender, with no lymphadenopathy. Cardiac: Regular rate and rhythm. Normal S1, S2. No murmurs, rubs or gallops. Pulmonary/Chest: Lungs are clear to auscultation bilaterally. No wheezes, rhonchi or rales noted. Abdominal: Abdomen with normoactive bowel sounds in all four quadrants. Soft, non-tender, non-distended. No organomegaly. Extremities: Normal range of motion in all four extremities, with normal strength equally and symmetrically. No cyanosis or clubbing or peripheral edema. Neurological: Conscious, alert and oriented. Cranial nerves II through XII are intact grossly and symmetrically. No focal neurologic deficit. Skin: Skin is warm and dry. She is not diaphoretic. Psychiatric: Appropriate mood and affect. Back: No CVA or point vertebral tenderness. Lymph: No supraclavicular or axillary adenopathy. Right Breast: S/p mastectomy and reconstruction. No masses or nodules. No right axillary lymphadenopathy. Tightness in right axilla/pectoralis muscle. Left Breast: S/p mastopexy with well-healed incision. Normal without suspicious masses, skin or nipple changes or axillary nodes Chest Wall: No abnormalities noted. Pertinent Labs, Imaging and Pathology Imaging Data: No new imaging to review Other Data: Surgical Pathology Report, [id number], 04/10/2022 Pathologic Diagnosis A. [place] lymph node #1, right axilla, excision: 1 lymph node with macrometastatic carcinoma by H&E and AE1/3 B. [place] lymph node #2, right axilla, excision: 1 lymph node, negative for carcinoma by H&E and AE1/3 C. Non-sentinel lymph node #1, right axilla, excision: 1 lymph node, negative for carcinoma by H&E D. Skin, original skin entrances site, 4 o'clock axis from prior diagnostic right breast ultrasound-guided biopsy, excision: Benign skin E. 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, see synoptic report Invasive carcinoma is 3 mm from the closest margin (anterior-inferior) SYNOPTIC REPORT FOR INVASIVE BREAST CARCINOMA Specimen (P=partial, M=mastectomy): M Laterality (R=right, L=left): R Focality (U=unifocal, M=multifocal): U Tumor size (cm): 4.2 cm Histologic type: Ductal Histologic grade: 2 Tubule score (1-3): 3 Nuclear score (1-3): 2 Mitotic score (1-3): 1 Skin, nipple epidermis, skeletal muscle (I=involved, N=negative, NA=not applicable): N Lymphovascular invasion (P=present, N=not identified): Present Margins of main specimen (P=positive, N=negative): N Distance to closest margin of main specimen (mm): 3 mm Designation of closest margin of main specimen: Anterior-inferior Designation of other margins of main specimen </=1 mm: N Re-resection margin status (P=positive, N=negative, NA=not applicable): NA DCIS (P=present, N=not identified): N Regional lymph nodes: Total number of lymph nodes: 3 Number of sentinel lymph nodes: 2 Number with macrometastases: 1 Number with micrometastases: 0 Number with isolated tumor cells: 0 Size of largest conrado metastasis (mm): 3 mm Size of extranodal extension (mm) (N=not identified): N Estrogen receptor: Positive (95%, strong intensity) Progesterone receptor: Positive (95%, strong intensity) HER2 IHC: Equivocal (Score 2+) HER2 FISH: Negative (ratio: 1.8, avg. HER2/cell: 3.73) per outside report Specimen in which ER/TX/HER2 performed: Previous outside biopsy [id number] pTNM: pT2 pN1a Additional findings: Biopsy site changes, seborrheic keratosis Comments: The metastatic deposit in Part A is not visible on the frozen section slide, and best visualized on the cytokeratin immunostained level. Immunohistochemical stains (on block E7) support the diagnosis. E-cadherin and p120 are positive, confirming ductal phenotype. Foci of lymphovascular invasion are positive for CD31 and ERG, and are negative for p40. Labs: WBC Count Date Value Ref Range Status 07/15/2023 4.43 3.99 - 11.19 K/uL Final Hemoglobin Date Value Ref Range Status 07/15/2023 12.3 11.4 - 15.2 g/dL Final Hematocrit Date Value Ref Range Status 07/15/2023 36.7 34.9 - 44.3 % Final Platelet Count Date Value Ref Range Status 07/15/2023 187 150 - 393 K/uL Final Mean Cell Volume Date Value Ref Range Status 07/15/2023 92.4 79.6 - 97.7 fL Final ALT Date Value Ref Range Status 04/01/2022 23 9 - 48 U/L Final AST Date Value Ref Range Status 04/01/2022 22 10 - 39 U/L Final Albumin Date Value Ref Range Status 04/01/2022 4.7 3.5 - 5.0 g/dL Final Bilirubin Direct Date Value Ref Range Status 02/24/2022 0.1 <0.3 mg/dL Final Bilirubin Total Date Value Ref Range Status 04/01/2022 0.3 <1.5 mg/dL Final BUN Date Value Ref Range Status 07/15/2023 18 7 - 25 mg/dL Final Creatinine Date Value Ref Range Status 07/15/2023 0.81 0.50 - 1.20 mg/dL Final Total Protein Date Value Ref Range Status 04/01/2022 7.2 6.4 - 8.3 g/dL Final Glucose Date Value Ref Range Status 04/01/2022 94 70 - 99 mg/dL Final Potassium Date Value Ref Range Status 07/15/2023 5.0 3.5 - 5.0 mmol/L Final Comment: Slightly hemolyzed Chloride Date Value Ref Range Status 07/15/2023 106 98 - 108 mmol/L Final Impression and Recommendations: Impression: Malia Cook is a postmenopausal female diagnosed in December 2021 with at least stage IB strongly hormone positive, Her-2 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 She is here today for follow up. Cancer Staging Malignant neoplasm of lower-inner quadrant of right breast of female, estrogen receptor positive Staging form: Breast, AJCC 8th Edition - Clinical stage from 01/20/2022: Stage IB (cT2, cN0, cM0, G1, ER+, TX+, HER2-) - Pathologic stage from 04/10/2022: Stage IB (pT2, pN1a(sn), cM0, G2, ER+, TX+, HER2-, Oncotype DX score: 23) Recommendations: 1. Breast Cancer: -No clinical evidence of recurrence -Right breast mastectomy on 04/10/22 with pathology revealing invasive ductal carcinoma, grade 2, measuring 4.2 cm. Oncotype Dx 23. -Unable to tolerate exemestane due to anxiety, arthralgias, and headaches. Switched to letrozole on 06/28/23. -She is tolerating letrozole very well to date with minimal side effects. She will continue on letrozole. -Mammogram and follow-up with Dr. Smallwood scheduled 03/01/24. -Follow up with Barbara Escobedo APRN-PHARMACEUTICAL WORKER scheduled 10/13/23. -Underwent right breast implant exchange and left mastopexy on 06/29/22 2. Supportive Care -Previously reviewed patient education on managing hot flashes and vaginal dryness. Continue coconut oil for vaginal dryness. -Reports she stopped venlafaxine for hot flashes. -Calcium and Vitamin D3 for osteoporosis prevention. -Previously offered supportive care services for mood. -Offered PT referral for exercise program and evaluation of tightness in axilla. She will try to see PT locally first, external referral provided. 3. Bone Health A. DEXA (08/12/22) with osteopenia. Plan to repeat in 2 years. B. Recommend calcium and vitamin D C. Recommend weight bearing exercises at least twice weekly 4. Healthy Lifestyle A. Reviewed importance of healthful lifestyle choices including maintaining healthy weight and continuing active aerobic exercise as tolerate. Discussed goal for balanced diet with adequate intake of fruits and vegetables. Also reviewed goal of 150 minutes of aerobic exercise per week. 5. Survivorship: Completed 09/24/22 RTC 6 months to see AKOS[facility] for evaluation. All of the patient's questions were addressed. They were given our office contact information to reach us with further questions. Documented by Indy Chahal, for Dr. Mack MD on 09/08/2023 at 8:50 AM. All medical record entries made by the Fela were at my direction and personally dictated by me, Dr. Mack MD. I have reviewed the chart and agree that the record accurately reflects my personal performance of the history, physical exam, assessment and plan. I have also personally directed, reviewed, and agree with the discharge instructions. Mel Giron MD, MEd Cd Technician of Internal Medicine Division of Medical Oncology [facility] Patient offered a medical hot mill tin roller for sensitive exam. Pt declined. documented in this encounter [facility] 09-08-2023 Instructions Anjelica Gonzales RN - 09/08/2023 8:30 AM EST Images from the original note were not included. When will my phone call be returned? Our providers will do their best to answer your call quickly. You should expect a returned call within 24 hours. If you have an emergency, please call 911 or go to your local emergency department. When will my [employer] message be returned? Our providers will do their best to answer your questions quickly. However, there are certain times when you won t get a response. Our providers won t respond to messages on nights, weekends or holidays. [employer] messages are not for urgent issues, and you can expect a response within 3 business days. If you have an emergency, please call 911 or go to your local emergency department. A business day is Wednesday through Wednesday 8 a.m. to 4:30 p.m. When are my results released? Patients have access to most test results as soon as they are available. These results and notes could include sensitive information such as a cancer diagnosis. You always have the choice to wait to view your information in [employer] until you speak with your provider. When will my FMLA/Paperwork be returned? Please allow 7-10 business days for completion of FMLA/Paperwork to be returned. Patient Satisfaction Surveys: Your opinion matters! If you receive a patient satisfaction survey in the mail we would appreciate your thoughts. Please help us get better! Store your prescribed pain medication in a locked cabinet or in an area only accessible to you. When you no longer need your prescribed pain medication, dispose of it immediately by one of the safe methods listed below: TAKE BACK PROGRAM: A drug take-back program is the best method to dispose of un-needed opioids safely. You can locate the take-back program closest to you @ https://takebackday.[place]ir.gov under the COLLECTION SITE NURSERY HELPER tab. Never dispose of un-needed medications down the sink or toilet. Instead, crush the medication and mix with damp coffee grounds or cat litter, place in a sealed plastic freezer bag, and dispose of in your regular trash. documented in this encounter [facility] 07-21-2023 History of Present illness Narrative Malia Cook was offered and declined a Medical Civil Service Worker for this exam/procedure/test 07/21/2023. DRAIN LOG DRAIN # 1 Date Output 07/18 24 mL 07/19 29 mL 07/20 22 mL 09/20 15 mL Am only DRAIN # 2 Date Output 07/18 27 mL 07/19 29 mL 07/20 20 mL 07/21 11 mL Am only Patient was evaluated by myself and Dr. Daily Reason for Visit: Postoperative Evaluation Patient History: Malia Cook is a 62 y.o. female with a history of asthma, hypothyroidism, and right breast cancer. S/p right mastectomy ([place]) 04/10/2022 S/p right breast reconstruction with family practice physician 04/10/2022 S/p right breast implant exchange, left breast reduction, excision of right breast standing cone deformity, 06/29/2022 Completed right breast radiation 09/04/2022 S/p removal of right breast permanent implant and capsulectomy, left breast reduction 07/15/2023 Subjective: The patient presents today for first scheduled follow-up. She is doing very well. Denies pain. 2 drains present. Denies fevers, chills, redness. Objective: Physical Exam BP 130/88 (BP Location: Left arm, BP Position: Sitting) Pulse 71 Resp 16 SpO2 99% Smoking Status Never General appearance:alert, cooperative, appears stated age Right Breast: Surgically absent. Incision c/d/I with dermabond in place. No fluctuation, erythema or ecchymosis. Left Breast: Incisions c/d/I with dermabond in place. Mild ecchymosis present. No fluctuation, erythema present. Assessment/Plan: Malia Cook - Continue activity restrictions for 4 weeks post-op - Continue with surgical bra or sports bra for 4 weeks post-op - Drains removed today in clinic. Clean bandage applied. Leave in place for 24 hours then ok to shower. - RTC [address] Daily - Call the office with any questions or concerns. Requested Prescriptions No prescriptions requested or ordered in this encounter There are no diagnoses linked to this encounter. documented in this encounter [facility] 07-21-2023 Instructions Caryn Noe PA-C - 07/21/2023 1:30 PM EST RTC [address] Daily documented in this encounter [facility] 07-14-2023 Evaluation note Encounter Date Diagnosis Assessment Notes Jun, Asthma (ICD-10 - J45.909) Jun, Upper airway cough syndrome (ICD-10 - R05.8) Jun, GERD (gastroesopha geal reflux disease) (ICD-10 - K21.9) Jun, Reactive airway disease (ICD-10 - J45.909) Jun, Lung nodule, multiple (ICD-10 - R91.8) [employer] Other 11-01-2023 History and physical note* Caryn Noe PA-C - 06/30/2023 1:00 PM EDT Plastic and Reconstructive Surgery H&P HPI: Ms. Cook is a 62 y.o. female with a past medical history of asthma, hypothyroidism, and right breast cancer. S/p right mastectomy ([place]) 04/10/2022 S/p right breast reconstruction with family practice physician 04/10/2022 S/p right breast implant exchange, left breast reduction, excision of right breast standing cone deformity, 06/29/2022 Completed right breast radiation 09/04/2022 She presents preoperatively for planned: REMOVAL OF RIGHT BREAST PERMANENT IMPLANT AND CAPSULECTOMY, LEFT BREAST REDUCTION Scheduled for: 07/15/2023 Since I last saw the patient, the following changes in health status/surgical plan are noted: No recent changes in medical history Notes: - Consent signed today in clinic - Orders placed Review of Systems: No F/C. No CP/SOB. 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 Right 06/29/2022 Laterality: Right; Surgeon: Tyrell Daily MD; Location: [facility] OR CAPSULOTOMY BREAST Right 06/29/2022 Laterality: Right; Surgeon: Tyrell Daily MD; Location: [facility] BREAST REDUCTION Left 06/29/2022 Laterality: Left; Surgeon: Tyrell Daily MD; Location: [facility] OR REPAIR WOUND SIMPLE AXILLAE TRUNK Right 06/29/2022 Laterality: Right; Surgeon: Tyrell Daily MD; Location: [facility] OR MASTECTOMY COMPLETE Right 04/10/2022 Laterality: Right; Surgeon: Stuart Smallwood MD; Location: [facility] OR BX LYMPH NODE AXILLARY DEEP Right 04/10/2022 Laterality: Right; Surgeon: Stuart Smallwood MD; Location: [facility] OR INJECTION RADIOACTIVE TRACER FOR SENTINEL NODE IDENTIFICATION Right 04/10/2022 Laterality: Right; Surgeon: Stuart Smallwood MD; Location: [facility] OR 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 Right 04/10/2022 Laterality: Right; Surgeon: Tyrell Daily MD; Location: [facility] OR CORE BIOPSY OF THE BREAST Right 01/20/2022 invasive carcinoma BLADDER SUSPENSION 2013 mostly removed d/t infection HYSTERECTOMY 2011 BLADDER SUSPENSION 2006 ACL 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 Left 2005 Allergies Allergen Reactions Sumatriptan Other reaction(s): Mental Status Change, Other (See Comments) Outpatient Medications Prior to Visit Medication Sig Dispense Refill acetaminophen 650 MG Tab CR Take 1 tablet by mouth every 6 hours for 2 days. 8 tablet 0 Albuterol Sulfate 108 (90 Base) MCG/ACT Aerosol Powder, breath activated Inhale. Prn Calcium Carbonate-Vitamin D (CALTRATE 600+D PO) Take by mouth. esomeprazole [address] capsule Take 1 capsule by mouth every morning before breakfast. Cisljnmnayh-Dauckxono-Zaywdc (Trelegy Ellipta) 200-62.5-25 MCG/ACT Aerosol Powder, breath activatedInhale. furOSEmide 20 MG tablet Take 1 tablet by mouth daily. ibuprofen 400 MG tablet Take 1 tablet by mouth every 6 hours for 2 days. 8 tablet 0 Letrozole 2.5 MG tablet Take 1 tablet by mouth daily. Dx C50.919 30 tablet 2 MAGNESIUM OXIDE PO Take by mouth. Meloxicam (MOBIC PO) Take by mouth. oxyCODONE 5 MG tablet Take 1 tablet by mouth every 8 hours as needed for Severe Pain for up to 7 days. 21 tablet 0 predniSONE 10 MG tablet Take 1 tablet by mouth daily. Taper ends 02/25/23 Synthroid 50 MCG tablet triamcinolone 0.1 % Cream cream Apply to itchy, radiated skin twice per day for 7-10 days. 28.4 g 0 venlafaxine 37.5 MG Cap SR 24HR capsule XR Take 1 capsule by mouth daily. 90 capsule 3 vitamin E 400 units capsule Take 1 capsule by mouth daily. No facility-administered medications prior to visit. Social History Tobacco Use Smoking status: Never Smokeless tobacco: Never Vaping Use Vaping Use: Never used Substance Use Topics Alcohol use: Yes Alcohol/week: 1.0 standard drink of alcohol Types: 1 Standard drinks or equivalent per week Drug use: Never Family History Problem Relation Age of Onset Alzheimer's Mother Diabetes Father Other - Specify Father pacemaker Colorectal Cancer Sister 48 Diabetes Sister Other - Specify Brother COD undetermined, lung problems, d. 69 Other - Specify Brother COD undetermined, lung problems, d. 70 Diabetes Brother Thyroid Cancer Maternal Grandmother dx. young, also had goiter removed, d. 82 Heart Disease - Other Maternal Grandfather d. <60 Other - Specify Son non-malignant spot removed from forehead Ovarian Cancer Maternal Aunt d. 85 Cancer- Other Maternal Aunt LeahU, d. 50s Other - Specify Maternal Aunt stomach surgery and many medical problems Heart Disease - Other Maternal Uncle x3 Cancer- Other Maternal Cousin CaSU Leukemia Maternal Cousin Breast Cancer Maternal Cousin 40 Uterine Cancer Neg Hx Negative for problems with anesthesia, surgery, bleeding, or wound healing problems. Physical Examination vitals were not taken for this visit. Estimated body mass index is 23.91 kg/m as calculated from the following: Height as of 01/27/23: 1.613 m (5' 3.5 ). Weight as of 06/09/23: 62.2 kg (137 lb 1.6 oz). General: NAD, well appearing HEENT: NC/AT, CN 2-12 grossly intact, V1-V3 grossly intact, no LAD/lesions Chest: RRR, CTAB Abdomen: Soft/NT/ND, no palpable masses/hernias, no organomegaly Extremities: Neurovascularly intact 1 point each: [] Age 41-60 [] minor surgery planned [] history of prior major surgery (<1 month) [] varicose veins [] history of IBD [] current swollen legs [] obesity (BMI>25) [] acute RI [] CHF <1 month [] sepsis (<1 month) [] Lung disease including PNA (<1 month) [] Abnormal pulmonary fxn (COPD) [] Currently on bedrest [] OCP or HRT [] or (<1 month) [] Hx unexplained stillborn, spontaneous (>3), premature with toxemia or growth restricted 2 points each: [x] Age 60-74 [] Arthroscopic surgery [x] Malignancy hx [x] Major surgery planned (>45 min) [] Laparoscopic surgery (>45 min) [] Patient confined to bed (>72 hrs) []Immobilizing plaster cast [] Central Venous Access 3 points each: [] Age >75 [] Hx DVT/PE [] Family hx of thrombosis [] Factor V Leiden [] Prothrombin 82010R [] Elevated serum homocysteine [] Positive Lupus anticoagulant [] Elevated anticardiolipin antibodies [] HIT [] Other thrombophilia 5 points each: [] Elective major lower arthroplasty [] Hip, pelvis, or leg fx [] stroke (<1 month) [] Multiple Trauma (<1 month) [] Acute spinal cord injury (<1 month) Total Score: Strongly consider chemoprophylaxis if 7 or greater. Caprini of 6. Assessment/Plan I reviewed the planned procedure(s) with the patient as listed above. I reviewed the incisions/scars, duration, recovery time, postoperative restrictions, and follow-up.I discussed hospitalization and drains. Risks that were discussed include general surgical (bleeding, infection, hematoma, seroma, wound breakdown, need for further surgery, pain, numbness, weakness, asymmetry, cosmetic deformity, injury to structures, capsular contracture, implant failure, asymmetry), general medical (heart attack, pneum onia, DVT/PE, ), and implant-specific (implants are not lifetime devices and will rupture in the long-term, capsular contracture, potential need for implant removal, breast implant associated anaplastic large cell lymphoma (risk approximately 1 in 30,000), systemic symptoms (joint pain, fatigue, memory loss), need for follow-up evaluation including in some cases imaging (which may or may notbe covered by insurance) even after breast reconstruction has been completed, rippling, and that implants contain chemicals and heavy metals.) All of the patient's questions/concerns were addressed. The patient understands all of these things, wishes to proceed, and signed the consent form. A total of 45 minutes of osbj-yr-cwpm time was spent with the patient, of which more than 50% was spent counseling about the intra- and post-operative surgical plans. Orders Placed. [facility]11-01-2023 History and physical note* Caryn Noe PA-C - 06/30/2023 1:00 PM EDT Plastic and Reconstructive Surgery H&P HPI: Ms. Cook is a 62 y.o. female with a past medical history of asthma, hypothyroidism, and right breast cancer. S/p right mastectomy ([place]) 04/10/2022 S/p right breast reconstruction with family practice physician 04/10/2022 S/p right breast implant exchange, left breast reduction, excision of right breast standing cone deformity, 06/29/2022 Completed right breast radiation 09/04/2022 She presents preoperatively for planned: REMOVAL OF RIGHT BREAST PERMANENT IMPLANT AND CAPSULECTOMY, LEFT BREAST REDUCTION Scheduled for: 07/15/2023 Since I last saw the patient, the following changes in health status/surgical plan are noted: No recent changes in medical history Notes: - Consent signed today in clinic - Orders placed Review of Systems: No F/C. No CP/SOB. 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 Right 06/29/2022 Laterality: Right; Surgeon: Tyrell Daily MD; Location: [facility] CAPSULOTOMY BREAST Right 06/29/2022 Laterality: Right; Surgeon: Tryell Daily MD; Location: [facility] BREAST REDUCTION Left 06/29/2022 Laterality: Left; Surgeon: Tyrell Daily MD; Location: [facility] OR REPAIR WOUND SIMPLE AXILLAE TRUNK Right 06/29/2022 Laterality: Right; Surgeon: Tyrell Daily MD; Location: [facility] OR MASTECTOMY COMPLETE Right 04/10/2022 Laterality: Right; Surgeon: Stuart Smallwood MD; Location: [facility] OR BX LYMPH NODE AXILLARY DEEP Right 04/10/2022 Laterality: Right; Surgeon: Stuart Smallwood MD; Location: [facility] OR INJECTION RADIOACTIVE TRACER FOR SENTINEL NODE IDENTIFICATION Right 04/10/2022 Laterality: Right; Surgeon: Stuart Smallwood MD; Location: [facility] OR 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 8 tablet 0 Albuterol Sulfate 108 (90 Base) MCG/ACT Aerosol Powder, breath activated Inhale. Prn Calcium Carbonate-Vitamin D (CALTRATE 600+D PO) Take by mouth. esomeprazole [address] capsule Take 1 capsule by mouth every morning before breakfast. Rtskgcefqtn-Widcirdnf-Xkhjxn (Trelegy Ellipta) 200-62.5-25 MCG/ACT Aerosol Powder, breath activatedInhale. furOSEmide 20 MG tablet Take 1 tablet by mouth daily. ibuprofen 400 MG tablet Take 1 tablet by mouth every 6 hours for 2 days. 8 tablet 0 Letrozole 2.5 MG tablet Take 1 tablet by mouth daily. Dx C50.919 30 tablet 2 MAGNESIUM OXIDE PO Take by mouth. Meloxicam (MOBIC PO) Take by mouth. oxyCODONE 5 MG tablet Take 1 tablet by mouth every 8 hours as needed for Severe Pain for up to 7 days. 21 tablet 0 predniSONE 10 MG tablet Take 1 tablet by mouth daily. Taper ends 02/25/23 Synthroid 50 MCG tablet triamcinolone 0.1 % Cream cream Apply to itchy, radiated skin twice per day for 7-10 days. 28.4 g 0 venlafaxine 37.5 MG Cap SR 24HR capsule XR Take 1 capsule by mouth daily. 90 capsule 3 vitamin E 400 units capsule Take 1 capsule by mouth daily. No facility-administered medications prior to visit. Social History Tobacco Use Smoking status: Never Smokeless tobacco: Never Vaping Use Vaping Use: Never used Substance Use Topics Alcohol use: Yes Alcohol/week: 1.0 standard drink of alcohol Types: 1 Standard drinks or equivalent per week Drug use: Never Family History Problem Relation Age of Onset Alzheimer's Mother Diabetes Father Other - Specify Father pacemaker Colorectal Cancer Sister 48 Diabetes Sister Other - Specify Brother COD undetermined, lung problems, d. 69 Other - Specify Brother COD undetermined, lung problems, d. 70 Diabetes Brother Thyroid Cancer Maternal Grandmother dx. young, also had goiter removed, d. 82 Heart Disease - Other Maternal Grandfather d. <60 Other - Specify Son non-malignant spot removed from forehead Ovarian Cancer Maternal Aunt d. 85 Cancer- Other Maternal Aunt CaSU, d. 50s Other - Specify Maternal Aunt stomach surgery and many medical problems Heart Disease - Other Maternal Uncle x3 Cancer- Other Maternal Cousin CaSU Leukemia Maternal Cousin Breast Cancer Maternal Cousin 40 Uterine Cancer Neg Hx Negative for problems with anesthesia, surgery, bleeding, or wound healing problems. Physical Examination vitals were not taken for this visit. Estimated body mass index is 23.91 kg/m as calculated from the following: Height as of 01/27/23: 1.613 m (5' 3.5 ). Weight as of 06/09/23: 62.2 kg (137 lb 1.6 oz). General: NAD, well appearing HEENT: NC/AT, CN 2-12 grossly intact, V1-V3 grossly intact, no LAD/lesions Chest: RRR, CTAB Abdomen: Soft/NT/ND, no palpable masses/hernias, no organomegaly Extremities: Neurovascularly intact 1 point each: [] Age 41-60 [] minor surgery planned [] history of prior major surgery (<1 month) [] varicose veins [] history of IBD [] current swollen legs [] obesity (BMI>25) [] acute RI [] CHF <1 month [] sepsis (<1 month) [] Lung disease including PNA (<1 month) [] Abnormal pulmonary fxn (COPD) [] Currently on bedrest [] OCP or HRT [] or (<1 month) [] Hx unexplained stillborn, spontaneous (>3), premature with toxemia or growth restricted 2 points each: [x] Age 60-74 [] Arthroscopic surgery [x] Malignancy hx [x] Major surgery planned (>45 min) [] Laparoscopic surgery (>45 min) [] Patient confined to bed (>72 hrs) []Immobilizing plaster cast [] Central Venous Access 3 points each: [] Age >75 [] Hx DVT/PE [] Family hx of thrombosis [] Factor V Leiden [] Prothrombin 42686L [] Elevated serum homocysteine [] Positive Lupus anticoagulant [] Elevated anticardiolipin antibodies [] HIT [] Other thrombophilia 5 points each: [] Elective major lower arthroplasty [] Hip, pelvis, or leg fx [] stroke (<1 month) [] Multiple Trauma (<1 month) [] Acute spinal cord injury (<1 month) Total Score: Strongly consider chemoprophylaxis if 7 or greater. Caprini of 6. Assessment/Plan I reviewed the planned procedure(s) with the patient as listed above. I reviewed the incisions/scars, duration, recovery time, postoperative restrictions, and follow-up.I discussed hospitalization and drains. Risks that were discussed include general surgical (bleeding, infection, hematoma, seroma, wound breakdown, need for further surgery, pain, numbness, weakness, asymmetry, cosmetic deformity, injury to structures, capsular contracture, implant failure, asymmetry), general medical (heart attack, pneum onia, DVT/PE, ), and implant-specific (implants are not lifetime devices and will rupture in the long-term, capsular contracture, potential need for implant removal, breast implant associated anaplastic large cell lymphoma (risk approximately 1 in 30,000), systemic symptoms (joint pain, fatigue, memory loss), need for follow-up evaluation including in some cases imaging (which may or may notbe covered by insurance) even after breast reconstruction has been completed, rippling, and that implants contain chemicals and heavy metals.) All of the patient's questions/concerns were addressed. The patient understands all of these things, wishes to proceed, and signed the consent form. A total of 45 minutes of qjgh-iy-nnnw time was spent with the patient, of which more than 50% was spent counseling about the intra- and post-operative surgical plans. Orders Placed. [facility] of Present illness Narrative* Kathe Liu RN - 06/30/2023 1:00 PM EDT Instructions given to patient concerning pre and post op care. Written instructions given include: - Pre Operative Instruction Sheet - Post Operative Instruction Sheet - Getting Your Skin Ready for Surgery - Herbal Use Before Surgery - Drain System Instruction Sheet - Tube-Evac Device Instruction Sheet NO HEATING PAD USE Given an XL surgical bra. Patient instructed to have nothing by mouth beginning at midnight before her surgery. Chlorhexidinesoap solution given with instructions for patient to shower surgical area once daily for 5 days prior to surgery and again the morning of surgery. Drain demonstration provided with opportunity for return demonstration. Measuring cups given with instructions for measuring and recording drainage output. Patient verbalized understanding and all questions were answered. [facility]* Patient Instructions* Caryn Noe PA-C - 06/30/2023 1:00 PM EDT Patient Medication Instructions: Here is a list of your current medications we have on file: Current Outpatient Medications Medication Sig acetaminophen 650 MG Tab CR Hold the morning of surgery Calcium Carbonate-Vitamin D (CALTRATE 600+D PO) Hold the morning of surgery esomeprazole [address] capsule Hold the morning of surgery furOSEmide 20 MG tablet Hold the morning of surgery Letrozole 2.5 MG tablet Hold the morning of surgery MAGNESIUM OXIDE PO Hold the morning of surgery Meloxicam (MOBIC PO) Hold for 1 week prior to surgery Synthroid 50 MCG tablet Continue with small sip of water venlafaxine 37.5 MG Cap SR 24HR capsule XR Continue with small sip of water vitamin E 400 units capsule Hold for 2 weeks prior to surgery - Only take the indicated medications on the morning of surgery with a sip of water. Do not take any of your other medications on the morning of surgery. -If you use inhalers, use all your inhalers on the morning of surgery. - HOLD NSAIDS (Advil, Aleve, Aspirin, Celebrex, Diclofenac, Ibuprofen, Meloxicam, Motrin, Naproxen,etc.) for 7 days prior to surgery. You CAN take Tylenol (acetaminophen). - HOLD all herbal medications (fish oil, glucosamine, garlic, etc.) and Multi- Vitamins and Vitamin E 14 days prior to surgery. -Talk to your doctor about stopping any medicines you take to thin your blood or prevent clots. These medications may need to be continued or the amount adjusted before surgery. If you have a stent, do not stop taking your medicines to prevent clots without first talking to your doctor. If you takeaspirin for arthritis pain, ask your doctor for a different pain medicine around the time of your procedure. *Please call the office at [phone] if any cold, flu like or other symptoms of infection are present the week prior to surgery. It may be necessary that you follow up with your primary care provider for further assessment. The presence of infection or illness may delay surgery. Instructions for Care PRIOR to Your Upcoming Surgery: - Starting five days before surgery, shower using chlorhexidine (CHG) soap one time each day for four days. Then, shower the night before your surgery and again the morning of your surgery using CHG soap. You will shower with CHG soap a total of 6 times prior to surgery. See Getting Your Skin Ready for Surgery for instructions for use of CHG soap. - Do NOT use any makeup, lotion, deodorant, or perfume the morning of surgery. - Do NOT shave near surgical site(s) starting 1 week prior to surgery. - Do NOT eat or drink ANYTHING after midnight or the day surgery (including gum, candy, ice, antacid tablets, etc.). - You may brush your teeth and rinse your mouth prior to surgery, but do NOT swallow anything. - Do NOT smoke or use ANY nicotine containing products (chew, gum, patch, snuff, vape, etc.) withinthe 4 weeks prior to surgery and the 6 weeks following surgery. Smoking and chewing tobacco can delay wound healing and result in increased risk of infection following surgery. - HOLD NSAIDS (Advil, Aleve, Aspirin, Celebrex, Diclofenac, Ibuprofen, Meloxicam, Motrin, Naproxen,etc.) for 7 days prior to surgery. You CAN take Tylenol (acetaminophen). - HOLD all herbal medications (fish oil, glucosamine, garlic, etc.) and Multi- Vitamins and Vitamin E 14 days prior to surgery. -Talk to your doctor about stopping any medicines you take to thin your blood or prevent clots. These medications may need to be continued or the amount adjusted before surgery. If you have a stent, do not stop taking your medicines to prevent clots without first talking to your doctor. If you takeaspirin for arthritis pain, ask your doctor for a different pain medicine around the time of your procedure. What you need to bring to the hospital: 1. A photo ID 2. Insurance Card 3. Co-pay for insurance if applicable 4. A list of ALL MEDICATIONS you are currently taking including the dose and times that you take them. You will be turning this list over to your nurse. 5. Crutches/walker if applicable. 6. CPAP machine if applicable. 7. Loose fitting clothing and preferably a top that closes in the front to wear home following surgery. What to leave at home: 1. ALL valuables, cell phone, wallet, purse 2. ALL jewelry including watches, wedding bands and ANY FORM of piercing. 3. DO NOT wear lotion, makeup, nail armenian, contact lens, or perfume/cologne. 4. DO NOT bring actual pill bottles or home medications unless instructed to do so. * If you will be going home the day of surgery, you MAY NOT use commercial transportation, drive yourself home, or be home alone for 24 hours after your surgical procedure. Post Op Care/Restrictions for Your Upcoming Surgery - Instructions will also be provided at time of discharge and restrictions may change depending on the procedure performed. IMPLANT BASED 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/OTHER BREAST SURGERY: - Wash hands prior to caring for incisions, wounds, and drains. - You will receive instruction regarding incision line care and dressing changes following surgery. - Do NOT shower, sponge bathe only. You may cleanse incisions with mild soap and water starting 48 hours after surgery. - Wear surgical bra at all times (other than bathing) for 3 weeks. After 3 weeks you may switch to a soft cotton sports bra with a band that does not go over any incisions and preferably with a zippered front. Do NOT wear a bra with underwire for 3 months. - Do not raise your elbow(s) above shoulder level for 4 weeks. - No lifting/pushing/pulling more than 5 pounds for 6 weeks. - No repetitive arm movements, including all popped corn oven attendant, for 6 weeks. - No bouncing activities for 6 weeks. - No formal exercise for 6 weeks. General light activity such as walking is encouraged following surgery. - Do NOT apply heat or ice surgical site(s). Be cautious when using a heating pad for other areas of the body to avoid risk of burn. - Do NOT submerge incisions/drain sites in water until 8 weeks following surgery and all incisions have completely healed. - No swimming in chlorinated pool 2 months after surgery - No swimming in natural body of water (ceron/ocean/other) 3 months after any surgery - No swimming in any water for 72 hours after a fill - Anticipate 4 weeks of no travel by car (greater than 1 hour) or air. If transportation to appointment exceeds 1 hour, it is recommended that you stop once every hour for a 5 minute walk to prevent the development of blood clots. - Do NOT drive while taking narcotic pain medication. - If drains present: * Strip and empty each drain twice daily. Record each drain's output in log provided. Please recorddrain output in milliliters (mL). * Bring drain output log to every post-op appointment. * Measuring cups and drain output log have been provided for measuring and recording drain output. * Do NOT drive while drains in place. Call the Plastics and Reconstructive Surgery office at [phone] promptly with any of the following concerns: - Fever of 100.4 degrees Fahrenheit (38 degrees Celsius) or higher. - Pain that is not relieved by your pain medication. - Redness around your incision site. - Increasing swelling or bruising to surgical site. - An increased amount of drainage or drainage that has changed, is cloudy or milky, or has a foul odor. Please call at any time with any other questions or concerns. IMPORTANT INFORMATION REGARDING PRESCRIBED PAIN MEDICATIONS Store your prescribed pain medication in a locked cabinet or in an area only accessible to you. When you no longer need your prescribed pain medication, dispose of it immediately by one of the safe methods listed below: TAKE BACK PROGRAM: A drug take-back program is the best method to dispose of un- needed opioids safely. You can locate the take-back program closest to you at https://takebackday.[employer].gov under the COLLECTION SITE NURSERY HELPER tab. Never dispose of un-needed medications down the sink or toilet. Instead, crush the medication and mix with damp coffee grounds or cat litter, placed in a sealed plastic freezer bag and dispose of in your regular trash. Preventing Deep Vein Thrombosis Healthcare providers use the term venous thromboembolism (VTE) to describe two conditions: deep vein thrombosis (DVT) and pulmonary embolism (PE). They use the term VTE because the two conditions arevery closely related. And because their prevention and treatment are closely related. DVT is a blood clot or thrombus in a deep vein. Most of these clots develop in the leg or thigh. But they may form in a vein in the arm, or other part of the body. Part of the blood clot may separate from the vein. This is called an embolus. It may travel to the lungs and form a pulmonary embolus. This can cut off the flow of blood to a portion of or to the entire lung. A blood clot in the lungs is a medical emergency and may cause . Over time, blood clots can also damage veins. They must be treated right away to prevent problems. Risk factors Anyone can develop a blood clot. But the following things make a blood clot more likely to happen: Being inactive for a long period, such as when you re in the hospital, or traveling by plane or car Injury to a vein from an accident, a broken bone, or surgery Having blood clots in the past or a family history of blood clots Blood clotting disorder Recent surgery Cancer and certain cancer treatments Smoking Other things can also put you at higher risk for a blood clot. They include: Age over 60 years Taking control pills or hormone replacement Having other vein problems, such as varicose veins Being overweight Having a pacemaker or a central venous catheter. They increase the chance of a blood clot forming in an arm. Injection drug use. This also increases the chance of a blood clot forming in an arm. How to prevent DVT Preventing a blood clot means improving blood flow back to your heart. To help prevent a blood clot: Talk with your healthcare provider about a program of regular exercise. If your legs feel swollen or heavy, take a break and sit comfortably or lie down with your feet up. Keep a healthy weight. Quit smoking, if you smoke. Don't sit, stand, or lie down for long periods without moving your legs and feet: When traveling by car, stop often to get out and move around. On long airplane, train, or bus rides, get up and move around when possible. If you can t get up, wiggle your toes and tighten your calves to keep your blood moving, as pictured below. If you need to have surgery, talk with your healthcare provider about a plan to prevent blood clots. If you are in the hospital, your risk for blood clots increases. Your healthcare provider may prescribe blood-thinner medicine (anticoagulant) to help prevent blood clots. Or your healthcare providermay prescribe a sequential compression device (SCD) or intermittent pneumatic compression (IPC). The device has sleeves that fit around your legs. It puts gentle pressure on your legs to help with blood flow and prevent blood clots. Remove the sleeves so that you do not trip or fall when you are walking, like when you use the bathroom or shower. If you need help removing the sleeves, ask the nurse or aid. You may also want to try the following: Call 911 If you have symptoms of a blood clot in your lungs, call 911. The symptoms are: Chest pain Trouble breathing Fast heartbeat Coughing (may cough up blood) Sweating Fainting When to call your healthcare provider If you have symptoms of a blood clot, call your healthcare provider. The symptoms are: Pain Swelling Redness or discoloration in a leg, arm, or other area Date Last Reviewed: 12/29/201519995222-4902 [employer]. [address] [place], [place] [address]. All rights reserved. This information is not intended as a substitute for professional medical care. Always follow yourhealthcare professional's instructions. documented [facility] this [facility] * Encounter Date Diagnosis Assessment Notes Treatment Notes Treatment Clinical Notes May, Puncture wound of right hand without foreign body, initial encounter (ICD-10 - S61.431A) Finish antibiotics as prescribed. Advised to take with food. Patient denies history of yeast infections with stronger antibiotics. Patient will be aware of any streaking or further redness in her hand or arm. [employer] 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 female who presents to the [facility] for Chief Complaint Patient presents with Follow-up Exemestane Referring Provider: Marlene Olivas, JACKIE* Breast Surgeon: Dr. Smallwood Plastic Surgeon: Dr. Daily Radiation Oncologist: Dr. Gomez PCP: Dr. 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 Today, Nando reports the following: -Increased anxiety since starting exemestane. -She has been struggling with her asthma which contributes to lower energy but has improved over the past couple days. Follows closely with sail repairer. -Frequent headaches since starting exemestane, nearly daily. Tylenol is helpful. -Recent vision check was good. -Shortness of breath with exertion. Occasional asthma attacks. -Tenderness in right breast and tightness in axilla persist. Stable overall. Denies new concerns onleft. -Denies n/v. Occasional diarrhea. -Denies hot flashes. Coconut oil is helpful for vaginal dryness. -Stopped taking venlafaxine in March. -Remaining ROS unremarkable. Oncologic History: Briefly, Malia Cook's oncologic history is summarized by the followin01/15/22 Mammo/US: RIGHT BREAST: Macro lobulated spiculated opacity within the posterior lower inner quadrant corresponding to patient's palpable lump. Ultrasound evaluation demonstrates a 4.5 x 1.8 x 1.5 cm lobular, spiculated, heterogeneous mass at the 5 o'clock position, 3.2 cm from the nipple, concerning for malignancy 01/20/22 Right Breast Bx 5:00 position (1.9cm) Grade 1, Invasive Carcinoma with mixed ductal and lobular features ER >90%, TX 80-90%, HER 2 IHC: 2+, FISH ratio: 1.8, Average HER 2 signal/cell: 3.73 02/24/[address] Smallwood, MRI ordered 02/27/22 MRI Breast: The right breast biopsy-proven malignancy is identified in the inferior central and inferior medial aspects measuring 4.5 x 2.9 x 3.0 cm.There is no axillary lymph adenopathy 03/04/22 Genetic Testing: negative 03/20/22 Dr Giron to establish care 04/10/22: Right breast mastectomy. Pathology revealed invasive ductal carcinoma, grade 2, measuring4.2 cm. 1 lymph node with macrometastatic carcinoma. [id number]. 09/04/2022: Completed adjuvant radiation 08/2022: Started anastrozole 12/2022: Stopped anastrozole r/t arthralgias, hot flashes, changes in eye sight. 04/2023: Switched to exemestane. 06/09/2023: Hold exemestane for two weeks r/t headaches, anxiety, arthralgias. Pertinent Physical Exam: Vitals: BP 119/72 (BP Location: Left arm, BP Position: Sitting) Pulse 86 Temp 97.3 F (36.3 C) (Oral) Resp 16 Wt 62.2 kg (137 lb 1.6 oz) SpO2 98% BMI 23.91 kg/m Smoking Status Never Patient's Current Performance Status 0 General/Constitutional: Well developed, well nourished female, who looks their stated age. No acutedistress. HEENT: Head: Normocephalic and atraumatic. Eyes: Pupils are equal, round, and reactive to light andaccomodation. Extraocular movements are intact. Sclerae are anicteric. Neck: Supple, non-tender, with no lymphadenopathy. Cardiac: Regular rate and rhythm. Normal S1, S2. No murmurs, rubs or gallops. Pulmonary/Chest: Lungs are clear to auscultation bilaterally. No wheezes, rhonchi or rales noted. Abdominal: Abdomen with normoactive bowel sounds in all four quadrants. Soft, non-tender, non-distended. No organomegaly. Extremities: Normal range of motion in all four extremities, with normal strength equally and symmetrically. No cyanosis or clubbing or peripheral edema. Neurological: Conscious, alert and oriented. Cranial nerves II through XII are intact grossly and symmetrically. No focal neurologic deficit. Skin: Skin is warm and dry. She is not diaphoretic. Psychiatric: Appropriate mood and affect. Back: No CVA or point vertebral tenderness. Lymph: No supraclavicular or axillary adenopathy. Right Breast: S/p mastectomy and reconstruction. No masses or nodules. No right axillary lymphadenopathy. Tightness in right axilla. Left Breast: S/p mastopexy with well-healed incision. Normal without suspicious masses, skin or nipple changes or axillary nodes Chest Wall: No abnormalities noted. Pertinent Labs, Imaging and Pathology Imaging Data: No new imaging to review Other Data: Surgical Pathology Report, [id number], 04/10/2022 Pathologic Diagnosis A. [place] lymph node #1, right axilla, excision: 1 lymph node with macrometastatic carcinoma by H&E and AE1/3 B. [place] lymph node #2, right axilla, excision: 1 lymph node, negative for carcinoma by H&E and AE1/3 C. Non-sentinel lymph node #1, right axilla, excision: 1 lymph node, negative for carcinoma by H&E D. Skin, original skin entrances site, 4 o'clock axis from prior diagnostic right breast ultrasound-guided biopsy, excision: Benign skin E. 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, see synoptic report Invasive carcinoma is 3 mm from the closest margin (anterior-inferior) SYNOPTIC REPORT FOR INVASIVE BREAST CARCINOMA Specimen (P=partial, M=mastectomy): M Laterality (R=right, L=left): R Focality (U=unifocal, M=multifocal): U Tumor size (cm): 4.2 cm Histologic type: Ductal Histologic grade: 2 Tubule score (1-3): 3 Nuclear score (1-3): 2 Mitotic score (1-3): 1 Skin, nipple epidermis, skeletal muscle (I=involved, N=negative, NA=not applicable): N Lymphovascular invasion (P=present, N=not identified): Present Margins of main specimen (P=positive, N=negative): N Distance to closest margin of main specimen (mm): 3 mm Designation of closest margin of main specimen: Anterior-inferior Designation of other margins of main specimen </=1 mm: N Re-resection margin status (P=positive, N=negative, NA=not applicable): NA DCIS (P=present, N=not identified): N Regional lymph nodes: Total number of lymph nodes: 3 Number of sentinel lymph nodes: 2 Number with macrometastases: 1 Number with micrometastases: 0 Number with isolated tumor cells: 0 Size of largest conrado metastasis (mm): 3 mm Size of extranodal extension (mm) (N=not identified): N Estrogen receptor: Positive (95%, strong intensity) Progesterone receptor: Positive (95%, strong intensity) HER2 IHC: Equivocal (Score 2+) HER2 FISH: Negative (ratio: 1.8, avg. HER2/cell: 3.73) per outside report Specimen in which ER/TX/HER2 performed: Previous outside biopsy [id number] pTNM: pT2 pN1a Additional findings: Biopsy site changes, seborrheic keratosis Comments: The metastatic deposit in Part A is not visible on the frozen section slide, and best visualized on the cytokeratin immunostained level. Immunohistochemical stains (on block E7) support thediagnosis. E-cadherin and p120 are positive, confirming ductal phenotype. Foci of lymphovascular invasion are positive for CD31 and ERG, and are negative for p40. Labs: WBC Count Date Value Ref Range Status 04/01/2022 4.76 3.99 - 11.19 K/uL Final Hemoglobin Date Value Ref Range Status 04/01/2022 12.3 11.4 - 15.2 g/dL Final Hematocrit Date Value Ref Range Status 04/01/2022 37.3 34.9 - 44.3 % Final Platelet Count Date Value Ref Range Status 04/01/2022 214 150 - 393 K/uL Final Mean Cell Volume Date Value Ref Range Status 04/01/2022 97.4 79.6 - 97.7 fL Final ALT Date Value Ref Range Status 04/01/2022 23 9 - 48 U/L Final AST Date Value Ref Range Status 04/01/2022 22 10 - 39 U/L Final Albumin Date Value Ref Range Status 04/01/2022 4.7 3.5 - 5.0 g/dL Final Bilirubin Direct Date Value Ref Range Status 02/24/2022 0.1 <0.3 mg/dL Final Bilirubin Total Date Value Ref Range Status 04/01/2022 0.3 <1.5 mg/dL Final BUN Date Value Ref Range Status 04/01/2022 14 7 - 25 mg/dL Final Creatinine Date Value Ref Range Status 04/01/2022 0.82 0.50 - 1.20 mg/dL Final Total Protein Date Value Ref Range Status 04/01/2022 7.2 6.4 - 8.3 g/dL Final Glucose Date Value Ref Range Status 04/01/2022 94 70 - 99 mg/dL Final Potassium Date Value Ref Range Status 04/01/2022 3.8 3.5 - 5.0 mmol/L Final Chloride Date Value Ref Range Status 04/01/2022 103 98 - 108 mmol/L Final Impression and Recommendations: Impression: Malia Joyce is a postmenopausal female diagnosed in December 2021 with at least stage IBstrongly hormone positive, Her-2 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 She is here today for follow up. Cancer Staging Malignant neoplasm of lower-inner quadrant of right breast of female, estrogen receptor positive Staging form: Breast, AJCC 8th Edition - Clinical stage from 01/20/2022: Stage IB (cT2, cN0, cM0, G1, ER+, TX+, HER2-) - Pathologic stage from 04/10/2022: Stage IB (pT2, pN1a(sn), cM0, G2, ER+, TX+, HER2-, Oncotype DX score: 23) Recommendations: 1. 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 Oncotype Dx 23. -RxPONDER (SWOG S1007) demonstrated no difference in 5 year invasive disease- free survival benefit between endocrine therapy plus chemotherapy vs endocrine therapy alone (91.9% vs 91.6%) for postmenopausal women with HR-positive, HER2- negative breast cancer and Oncotype Dx score less than or equal to 25. -Given this we discussed recommendation for adjuvant endocrine therapy. Endocrine therapy would be recommended for a minimum of 5 years and given postmenopausal status, aromatase inhibitor is standard of care. We reviewed common and serious adverse effects of aromatase inhibitors were reviewed inclu ding arthralgias, joint stiffness, vasomotor symptoms, vaginal dryness, dyspareunia, and increased bone thinning. -Reports anxiety, arthralgias, headaches on exemestane. Recommended she hold for two weeks. If symptoms improve, consider switch to letrozole. Nando will reach out to us in two weeks to let us know howshe is feeling. -Mammogram and follow-up with Dr. Smallwood scheduled 03/01/24. -Follow up with Barbara Escobedo APRN-EDEN scheduled 10/13/23. -Underwent right breast implant exchange and left mastopexy on 06/29/22 2. Supportive Care -Previously reviewed patient education on managing hot flashes and vaginal dryness. Continue coconut oil for vaginal dryness. -Reports she stopped venlafaxine for hot flashes. -Calcium and Vitamin D3 for osteoporosis prevention. -Offered supportive care services for mood. Declines PSO or medications at this time. -Offered PT referral for exercise program and evaluation of tightness in axilla. Declines at this time. 3. Bone Health A. DEXA (08/12/22) with osteopenia. Plan to repeat in 2 years. B. Recommend calcium and vitamin D C. Recommend weight bearing exercises at least twice weekly 4. Healthy Lifestyle A. Reviewed importance of healthful lifestyle choices including maintaining healthy weight and continuing active aerobic exercise as tolerate. Discussed goal for balanced diet with adequate intake offruits and vegetables. Also reviewed goal of 150 minutes of aerobic exercise per week. 5. Survivorship: Completed 09/24/22 RTC 3 months to see MD for evaluation. All of the patient's questions were addressed. They were given our office contact information to reach us with further questions. CARTER Gabriel * Anjelica Gonzales RN - 06/09/2023 9:00 AM EDT Patient offered a medical hot mill tin roller for sensitive exam. Pt declined. [facility] Instructions* Patient Instructions* Anjelica Gonzales RN - 06/09/2023 9:00 AM EDT Images from the original note were not included. When will my phone call be returned? Our providers will do their best to answer your call quickly. You should expect a returned call within 24 hours. If you have an emergency, please call 911 or go to your local emergency department. When will my [employer] message be returned? Our providers will do their best to answer your questions quickly. However, there are certain timeswhen you won t get a response. Our providers won t respond to messages on nights, weekends or holidays. [employer] messages are not for urgent issues, and you can expect a response within 3 business days. If you have an emergency, please call 911 or go to your local emergency department. A business day is Wednesday through Wednesday 8 a.m. to 4:30 p.m. When are my results released? Patients have access to most test results as soon as they are available. These results and notes could include sensitive information such as a cancer diagnosis. You always have the choice to wait to view your information in 500[employer] until you speak with your provider. When will my FMLA/Paperwork be returned? Please allow 7-10 business days for completion of FMLA/Paperwork to be returned. Patient Satisfaction Surveys: Your opinion matters! If you receive a patient satisfaction survey in the mail we would appreciate your thoughts. Please help us get better! Store your prescribed pain medication in a locked cabinet or in an area only accessible to you. When you no longer need your prescribed pain medication, dispose of it immediately by one of the safe methods listed below: TAKE BACK PROGRAM: A drug take-back program is the best method to dispose of un- needed opioids safely. You can locate the take-back program closest to you @ https://takebackday.[employer].gov under the COLLECTION SITE NURSERY HELPER tab. Never dispose of un-needed medications down the sink or toilet. Instead, crush the medication and mix with damp coffee grounds or cat litter, place in a sealed plastic freezer bag, and dispose of in your regular trash. documented in this encounterOS[facility] * Encounter Date Diagnosis Assessment Notes Treatment Notes Treatment Clinical Notes Apr, Asthma (ICD-10 - J45.909) Use rescue inhaler prior to exercise. Apr, Upper airway cough syndrome (ICD-10 - R05.8) Controlling post nasal drip and allergy symptoms will ultimately lessen cough. Apr, GERD (gastroesophageal reflux disease) (ICD-10 - K21.9) Take Nexium as needed during day and pepcid at night for acid reflux. Apr, Reactive airway disease (ICD-10 - J45.909) [employer] Other 09-12-2023 Evaluation note* Encounter Date Diagnosis Assessment Notes Treatment Notes Treatment Clinical Notes Apr, Moderate persistent asthma with exacerbation (ICD-10 - J45.41) take entire prescription keep appt w pulmonology Pt states she did complete the PFT. [employer] Other 06-29-2023 Evaluation note* Encounter Date Diagnosis Assessment Notes Treatment Notes Treatment Clinical Notes Jan, Moderate persistent asthma with acute exacerbation (ICD-10 - J45.41) [employer] Other 06-28-2023 History of Present illness Narrative* Tyrell Daily MD - 02/24/2023 8:45 AM EDT Plastic Surgery Attending Addendum I independently saw and examined Ms. Cook and have personally reviewed their chart. I have reviewed the note by Bret BARTON and made revisions to the history, examination, medical decision-making, and treatment plan as appropriate. Ms. Cook is s/p right breast implant exchange (prior to PMRT) and left breast reduction ~8 mos ago. PMRT completed ~5 mos ago. The patient presents with a ~1 wk h/o right breast pain and tightness. On exam the patient exhibit a right breast grade 3 contracture. I discussed options: 1. Left breast reduction - if pain/tightness are manageable and just asymmetric 2. Right breast implant removal - if pain/tightness are not manageable and patient does not wish topreserve reconstruction 3. Right breast reconstruction with latissimus flap and family practice physician - if pain/tightness are not manageable and patient does wish to preserve reconstruction I discussed timing of intervention: 1. At least 6 mos from end of PMRT 2. If pain/tightness are manageable, then when right breast appearance no longer changing 3. If pain/tightness are not manageable, then anytime The patient will contact us when ready for intervention. A total of 25 minutes of [id number] time was spent in this encounter, of which >50% was spent in counseling and coordination of care. Tyrell Daily MD * ORALIA Sheikh - 02/24/2023 8:45 AM EDT Patient was evaluated by myself and Dr. Daily. Subjective: S/p right mastectomy ([place]) 04/10/2022 S/p right breast reconstruction with family practice physician 04/10/2022 S/p right breast implant exchange, left breast reduction, excision of right breast standing cone deformity, 06/29/2022 Completed right breast radiation 09/04/2022 Evaluate new right breast pain HPI: The patient presents for evaluation of her right breast implant which became firm/tight and painfulabout 1 week ago. She has been taking OTC medications for her pain but has occasionally needed oxycodone for breakthrough. Reports pain today is improved from last week, though the breast feels very tight still. The patient feels the left breast is larger than the right breast implant. ROS: Denies redness, fevers, chills, drainage, swelling, pain. Objective: Physical Exam BP 133/76 (BP Location: Left arm, BP Position: Sitting) Pulse 70 Resp 16 SpO2 98% Smoking Status Never General appearance:alert, cooperative, appears stated age Right Breast: Grade III contracture. Breast is firm, implant appears smaller than left breast. Abdomen: Insufficient tissue present for unilateral reconstruction. Assessment/Plan: - The patient has a capsular contracture of the right breast, likely 2/2 h/o right breast RT. - We discussed options to treat the contracture: 1. Remove the implant and not replace it 2. Remove the implant and perform 2-staged reconstruction with stage 1 LD+TE on the right, and stage 2 right TE exchange, possible left breast re-reduction 3. Observe the contracture - The patient would like to consider her options and will notify us of her decision. If she ultimately decides to have surgery, she can present next at her pre-op visit given that she lives out of town. - Please call our clinic with any questions or concerns before your next visit. [facility] * Encounter Date Diagnosis Assessment Notes Treatment Notes Treatment Clinical Notes Jan, Moderate persistent asthma with exacerbation (ICD-10 - J45.41) Chest xray normal will refer to [facility] for evaluation. Pt agrees. Jan, Breast cancer, right (ICD-10 - C50.911) Discussed possible link between the surgical site pain and possibly her dyspnea. [employer] Other 06-13-2023 Evaluation note* Encounter Date Diagnosis Assessment Notes Treatment Notes Treatment Clinical Notes Jan, Moderate persistent asthmatic bronchitis with acute exacerbation (ICD-10 - J45.41) [employer] Other 05-31-2023 History of Present illness Narrative* Stuart Smallwood MD - 01/27/2023 2:15 PM EDT FOLLOW UP NOTE FOR [facility] BREAST SURGICAL ONCOLOGY CLINIC: DR. SMALLWOOD: HISTORY OF PRESENT ILLNESS The patient is known to me. I last saw her on 04/22/2022. I first met her on 02/04/2022. The patient is currently a 62-year-old white female. The patient had a body mass index/BMI of approximately 24.8 kg/m (5 foot, 3.5 inches tall, and weighed approximately 142 pounds), as of 02/24/2022. The patient lives in [place], [place]. ################################################################################ ############################################ The patient has a personal history of a RIGHT breast cancer process (pT2 [4.2 cm], pN1 [1/3 right axillary lymph nodes positive for macrometastatic carcinoma measuring 3 mm, without extranodal extension], 95% ER positive, 95% TX positive, HER2 negative, intermediate grade invasive mammary carcinomawith lobular features of the 5:00 position of the right breast [3.2 cm FRN]; Oncotype DX recurrencescore 23), which was initially diagnosed in late December 2021, and for which the patient underwent a right total mastectomy procedure and right axillary sentinel lymph node mapping and biopsy procedure (by me) and placement of a right-sided tissue family practice physician (by Dr. Tyrell Daily of [facility] Plastic surgery) at [facility] on 04/10/2022. The patient has a personal history of NEGATIVE comprehensive genetic testing for any form of hereditary breast cancer syndrome, as based upon [place] 77- gene CancerNext-Expanded+RNA panel testfrom blood collected on 03/04/2022. 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 ################################################################################ ############################################ The patient is most recent outside prior breast imaging was performed at [facility] in [place], [place], including bilateral diagnostic digital mammogram and right breast ultrasound on 01/15/2022. On 02/21/2021, the patient underwent a 12 lead EKG through the [facility] in [place], [place].This showed normal sinus rhythm with a ventricular rate of 69 beats per minute. They stated: Impression: SINUS RHYTHM WITH SHORT TX. NONSPECIFIC T WAVE ABNORMALITY. ABNORMAL ECG. . On 04/02/2021, the patient underwent Cardiopulmonary Exercise Test (CPET) at the [facility], in [place], [place]. They stated: Summary: In summary, in the current exercise study, the patient achieved a normal work capacity (VO2 max = 23.6 ml/kg/min, 112% of VO2 max predicted); and a normal work rate (WR = 118W, 155% predicted). - The evidence for a cardiovascular pattern of limitation includes: none. - The evidence for a respiratory pattern of limitation includes: none. The overall pattern is suggestive of normal aerobic fitness. NOTE: Exercise tech staff added the following: Familiar symptoms of dyspnea were recreated during exercise. Shireen Escobedo MD, April 02, 2021. Electronically Signed On 04-04-2021 14:18:11 EDT by Shireen Escobedo. . On 01/20/2022, the patient underwent a right breast ultrasound-guided Elite 13 gauge vacuum assisted biopsy and clip placement procedure of a 4.5 x 1.8 x 1.5 cm right breast ultrasound lesion in the 11:00 position of the right breast [3.2 cm FRN] at [facility] in [place], [place]. The final pathology from 01/20/2022 showed low-grade invasive carcinoma with mixed ductal and lobular features, measuring 1.9 cm in greatest dimension, which was found to be >90% ER positive, 80-90% TX positive, and HER2/lizzette negative. On 04/01/2022, the patient's outside pathology was reviewed by Dr. Spears of [facility] breast pathology. They stated: Pathologic Diagnosis: Outside Slides: [id number] (01/20/22): A. Right breast spiculated mass at 5 o'clock, ultrasound guided core biopsy: Invasive mammary carcinoma with lobular features, grade 2 (score: tubule 3, nuclear 2, mitotic 1), 1.8 cm in greatest length. Manual immunohistochemical quantification using stains performed at the outside institution: Estrogen Receptor: Positive (95%, strong intensity). Progesterone Receptor: Positive (95%, strong intensity). HER2: Equivocal (Score 2+). HER2 FISH: Negative (ratio: 1.8, HER2/cell: 3.73) per outside report. Submitted controls show appropriate reactivity. Comment: The block has been requested to perform E-cadherin and p120 immunostains in order to subclassify the tumor. The results will be reported in an addendum. Dr. Adams has reviewed client services representative slides. at [phone]. . On 02/18/2022, the patient's outside breast imaging was reviewed by Dr. Biju Blum of [facility] breast Radiology. They stated: EXAM: BREAST IMAGING SECOND OPINION READING, 02/18/2022 09:07 AM. CLINICAL INDICATIONS: The patient presents to the surgical clinic of Dr. Smallwood for evaluation. The patient originally presented to an outside institution in December 2021 for further evaluation of a palpable right breast lump. The patient underwent a bilateral diagnostic mammogram and right breast ultrasound which identified a suspicious right breast mass for which ultrasound-guided biopsy was suggested. The patient underwent an ultrasound-guided biopsy the right breast with pathology returning invasive ca rcinoma with mixed ductal and lobular features. Requested evaluation of outside breast imaging. COMPARISON: Bilateral diagnostic mammogram with tomosynthesis January 15, 2022. Right breast ultrasound 2021. Postbiopsy mammogram of the right breast January 20, 2022. Remote mammograms from August was reviewed for comparative purposes. MAMMOGRAM FINDINGS: The breasts have scattered areas offibroglandular density. With regard to bilateral diagnostic mammogram of January 15, 2022 in the lower inner right breast there is an irregularly-shaped isodense mass with spiculated margins and associated architectural distortion. There is some retraction of the skin in the lower pole the right breast. Mammographically the central core of the mass measures approximately 4.5 x 2.9 x 3.0 cm. No additional definitive dominant mass, distortion, or suspicious Patricio calcification either breast. With regard to the postbiopsy mammogram of January 20, 2022 there is a appropriately positioned biopsy clip atthe inferolateral aspect of the mass. ULTRASOUND FINDINGS: With regard to the right breast ultrasound of January 15, 2022 in the 11:00 position of the right breast approximately 3.2 cm from the nipple there is an irregular shaped hypoechoic mass with spiculated margins and associated vascular flow. [facility] measures the mass at 4.5 x 1.8 x 1.5 cm. The latter 2 of the 3 measurements appear to underestimate the size of the mass. IMPRESSION: Biopsy-proven carcinoma in the 5:00 right breast as described above. . . On 02/24/2022, I personally reviewed the patient's outside breast imaging with Dr. Wei Robertson of [facility] breast radiology. We discussed repeating right breast ultrasound to better size the overallsonographic abnormality within the right breast representing her right breast cancer process. We discussed obtaining right axillary ultrasound to sonographically evaluate her right axillary lymph nodes. We discussed the possibility of consideration of subsequently ordering bilateral breast MRI on the patient. On 02/24/2022, the patient presented to my [facility] for evaluation. On 02/24/2022, we placed 2 digital photographs of the patient's right breast/chest region into her [facility] electronic medical records to illustrate the geographic location visible and palpable changes within her right breast, representing her right breast cancer process and skin entrance site from her r ecent right breast ultrasound-guided biopsy done at the outside facility on 01/20/2022. On 02/24/2022, patient underwent a 12 lead EKG at [facility]. This showed normal sinus rhythm with a ventricular rate of 75 beats per minute. This showed nonspecific T-wave abnormalities. This showed prolonged QT interval. This is classified as an abnormal EKG tracing by the preliminary computerized reading. The final reading of the 12 lead EKG stated: NORMAL SINUS RHYTHM. NONSPECIFIC T WAVE ABNORMALITY. PROLONGED QT INTERVAL OR TU FUSION, CONSIDER MYOCARDIAL DISEASE, ELECTROLYTE IMBALANCE, OR DRUG EFFECTS. Confirmed by Jesusita Hurt ([id number]) on 02/26/2022 5:37:03 AM. . On 02/24/2022, I had the following discussion with the patient and her and her sister in the presence of our nurse practitioner, Marlene Olivas: We discussed that I felt that the patient was not going to be an appropriate candidate for attempted right breast conserving surgery, and instead would need a right mastectomy approach. We discussed surgical evaluation of the right axillary lymph nodes with right axillary sentinel lymph node mapping and biopsy procedure, and possible radioactive lymph node dissection procedure. We discussed the patient could potentially be a candidate for reconstructive surgery associated with right mastectomy approach. We discussed the importance of having the patient be seen by 1 of the [facility] Plastic Surgeons. We discussed the importance of having the patient be seen by 1 of the [facility] breast medical oncologist. We discussed the importance of having the patient be seen by 1 of the [facility] breast radiation oncologist. We discussed obtaining repeat right breast diagnostic digital mammogram to assess the overall size of her biopsy-proven right breast cancerprocess. We discussed the importance of right axillary ultrasound to sonographically assess her right axillary lymph nodes. We discussed ordering bilateral breast MRI on the patient for better sizingthe patient's right breast cancer process, as well as clearing her contralateral left breast. We discussed ordering a nuclear medicine cardiac stress test on the patient due to her abnormal EKG findings. We discussed having the patient be evaluated by the [facility] clinical cancer genetics service to discuss comprehensive genetic testing to rule out any form of hereditary breast cancer syndrome. I havediscussed all of these issues with the patient. I have answered all of her questions. The patient appears to understand what has been discussed, and she reports that she will follow-through accordingly, as is outlined above. We have given the patient contact information for our nurse practitioner, Effie Moe, and have instructed the patient to remain in contact with our nurse practitioner, Effie Moe, through [employer], for any future upcoming questions or concerns that they have regarding their management or follow-up in our [facility] breast Surgical Oncology Clinic. . On 02/24/2022, the patient underwent right breast ultrasound and right axillary ultrasound at [facility]. This was read by Dr. Wei Robertson of [facility] breast radiology. They stated: EXAM: US BREAST LIMITED UNILATERAL RIGHT, US AXILLA FOR MAMMOGRAPHY RIGHT, 02/24/2022 10:44 AM (accession [id number]), 02/24/2022 10:45 AM (accession [id number]). CLINICAL INDICATIONS: New right breast malignancy 5 o'clock, request for axillary evaluation as well. COMPARISON: January 15, 2022, January 20, 2022. FINDINGS: The biopsy-proven malignancy and associated clip is again demonstrated at the 5:00 zone 2 position. This consists of a markedly irregular ill-defined hypoechoic mass which on today's exam measures approximately 4.7 x 2.7 x 4.5 cm. Clip is noted within the mass. Evaluation of the right axilla demonstrates 2 lymph nodes with maintained normal morphology. No suspicious axillary lymph nodes are identified. IMPRESSION: 1. Biopsy-proven malignancy with measurements as described above. 2. Normal appearance of the right axilla. BI-RADS: 6: Known biopsy proven malignancy. Recommendation: Surgical excision when clinically appropriate. Recommendation Laterality: Right. . . On 02/27/2022, the patient underwent a bilateral breast MRI at [facility]. This was read by Dr. Wei Robertson of [facility] breast radiology. They stated: FINDINGS: Amount of fibroglandular tissue: heterogenous fibroglandular tissue. Background parenchymal enhancement: moderate symmetric. The right breast biopsy-proven malignancy is identified in the inferior central and inferior medial aspects consistingof a good: Irregular poorly marginated mass. Associated tissue marker is noted. This mass measures 4.5 x 2.9 x 3.0 cm. The mass does not appear to abut or invade the chest wall. There are scattered benign cysts in the left breast. There is no dominant mass, architectural distortion or area of suspic ious enhancement in the left breast. Axilla: There is no axillary lymphadenopathy. Internal MammaryChain: There is no internal mammary lymphadenopathy. Extramammary soft tissues: Unremarkable. IMPRESSION: 1. Biopsy proven malignancy in the inferior right breast as described. Continued clinical management recommended. 2. No MR evidence of malignancy in the left breast. Bi- RADS: 6: Known biopsy proven malignancy. Recommendation: Surgical excision when clinically appropriate. Recommendation Laterality: Right. . . On 03/04/2022, the patient was seen by Dr. Tyrell Daily of [facility] Plastic surgery. They stated: Plan: I discussed that the patient would be most suited to 2-stage implant-based reconstruction. After discussion, the patient stated that they wish to proceed with: right mastectomy and immediate breast reconstruction with tissue family practice physician. We will schedule/coordinate surgery and the patient will return at their preoperative appointment. . On 03/18/2022, the patient underwent a nuclear medicine cardiac stress test at [facility]. They stated: Interpretation Summary: Lexiscan Stress myocardial perfusion scan within normal limits. No evidence of ischemia. No evidence of prior myocardial injury. Normal left ventricular systolic function ( LVEF65% ). There is hot spot in the infero-medial right breast. Stress Findings: ECG. Baseline ECG is normal. Baseline ECG shows non-specific ST-T wave abnormalities consistent with ST depression. StressECG is unchanged from baseline. There was no ST segment deviation noted during stress. Recovery ECGreturned to baseline. Negative pharm stress test. Stress Findings A pharmacological stress test was performed using regadenoson without low-level exercise. The patient reported no symptoms prior to the stress test. The patient reported dizziness, shortness of breath and stomach discomfort during the stress test. The patient reached the end of the protocol. All symptoms resolved in recovery. At rest, the ECG is NSR with NS ST and TW changes. No angina or ECG changes with Lexiscan infusion. NEGATIVE LEXISCAN STRESS ECG. On 03/20/2022, the patient was seen by Dr. Deepti Gomez of [facility] breast Radiation Oncology. On 04/01/2022, the genetic counselor, Silverio Romero issued the following telephone encounter note inthe patient's [facility] electronic medical record chart. They stated: We met with initially in the Clinical Cancer Genetics Program on 03/04/2022 for genetic risk assessment and counseling. We spoke by telephone on 03/13/2022 to discuss the negative results of her STAT genetic testing. Homartin spoke by telephone on 04/01/22 for follow-up genetic counseling to discuss the results of hergenetic testing. Genetic counseling middle school spanish teacher, Halle Dowell, observed this encounter. Ms. Cook at another appointment when I called to discuss results. Should she have any questions about the results she can contact me directly at [phone]. RESULT AND INTERPRETATION: Based upon s personal and family history, she underwent multi-gene panel testing for variants in genes reported to be associated with hereditary cancer predisposition. 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 This 77-gene panel test is called [employer] and was performed by [employer]. The genes that were tested are listed below: AIP, ALK, APC, ELEUTERIO, AXIN2, BAP1, BARD1, BLM, BMPR1A, BRCA1, BRCA2, BRIP1, CDC73, CDH1, CDK4, CDKN1B, CDKN2A, CHEK2, CTNNA1, DICER1, EGFR, EGLN1, EPCAM,FANCC, FH, FLCN, GALNT12, GREM1, HOXB13, KIF1B, KIT, LZTR1, MAX, MEN1, MET, MITF, MLH1, MSH2, MSH3,MSH6, MUTYH, NBN, NF1, NF2, NTHL1, PALB2, PDGFRA, PHOX2B, PMS2, POLD1, POLE, POT1, LWOCW9P, PTCH1, PTEN, RAD51C, RAD51D, RB1, RECQL, RET, SDHA, SDHAF2, SDHB, SDHC, SDHD, SMAD4, SMARCA4, SMARCB1, SMARC E1, STK11, SUFU, GFUD089, TP53, TSC1, TSC2, VHL and XRCC2. Refer to the scanned report for testing specifications and limitations. CANCER RISK ASSESSMENT: Individuals who are found to have one MUTYH pathogenic variant (aka monoallelic or heterozygous) are thought to have a moderately increased riskfor colon cancer. A study of 2,332 relatives of individuals with colorectal cancer with one MUTYH pathogenic variant showed that carriers have an estimated 2.5-fold increased risk for colorectal cancer, compared to the general population (Win 2014). The estimated colorectal cancer risks, up to 70 years of age, were 7.2% (4.6%-11.3%) for males with one MUTYH pathogenic variant and 5.6% (3.6%-8.8%)for female with one MUTYH pathogenic variant, irrespective of family history. The risks for colorectal cancer were higher for individuals with one MUTYH pathogenic variant if they had a first-degree relative with colorectal cancer. Individuals with two MUTYH pathogenic variants (aka biallelic) havea condition called MUTYH-Associated Polyposis (MAP), which is associated with a high risk for multiple colon polyps and colon cancer. This means that they have a pathogenic variant on both copies of their MUTYH gene, one inherited from each parent. Ms. Cook does NOT have MAP, but she could have family members who are at-risk for this condition. Additionally, we discussed the risk for Ms. Cook to develop ovarian cancer based on her maternal aunt's reported history. The lifetime risk for ovarian cancer in the general population is 1.5%. Women with a first-degree relative (mother/sister/daughter) with ovarian cancer have a 3-5% lifetime risk for ovarian cancer. Women with a second-degreerelative (aunt/grandmother/niece) with ovarian cancer have a 1.5-2.5% lifetime risk for ovarian cancer. On 04/10/2023, the patient underwent a right total mastectomy procedure and right axillary sentinellymph node mapping and biopsy procedure (by mo) and placement of a right-sided tissue family practice physician (by Dr. Tyrell Daily of [facility] Plastic surgery). The final pathology from 04/10/[address] Antelmo Adams of [facility] breast pathology. This showed: (1) The right mastectomy specimen contained a 4.2 cm intermediate grade invasive ductal carcinoma. The final surgical resection margins the right mastectomy specimen were negative for invasive ductal carcinoma, the closest margin being the anterior-inferior margin at a distance of 3 mm. (2) Right axillary sentinel lymph node #1, which was negative for carcinoma on frozen section analysis, showed a 3 mm macrometastatic deposit, with no extranodal extension on final histological evaluation. Right axillary sentinel lymph node #2 was negative for carcinoma on final histological evaluation. Right axillary non sentinel lymph node #1 was negative for car cinoma. On 04/22/2023, I had the following discussion with the patient. I stated: We discussed the patient's final pathology results which showed that right axillary sentinel lymph node #1 contained a 3 mm focus of macrometastatic carcinoma with no extranodal extension which was not identified on frozen section analysis at the time of her right breast cancer surgery. The prior The International Breast Cancer Study Group (IBCSG) 23- Clinical Trial Study, for both BCS and mastectomy patients with 1 ormore positive sentinel lymph nodes (and specifically micrometastatic SLNs [?2 mm]), showed that there was NO ADDED BENEFIT from the addition of axillary lymph node dissection for local control, disease-free survival, or overall survival (Rand V, Inocente BF, Zurloa S, Nlyae G, Madelineini A, Karin P, Barvikkilla P, Chinéstor C, Marilyn M, Neva M, Boydilini O, [place] MG, Mazzarol G, [place] S, Maddy JR, Anabelle J, Jose H, Tyshawn A, Tonia D, Rosalio M, Willian M, Natan KN, Don MM, Maribel A, Toshia , Azeb RD, Karin U; International Breast Cancer Study Group Trial investigators. Axillary dissection versus no axillary dissection in patients with sentinel-node micrometastases (IBCSG ): a phase 3 randomised controlled trial. Lancet Oncol 2013; 14(4):297-305 [doi: 10.1016/Q9579-2096(95)74983-4]). Therefore, as based upon the prior The International BreastCancer Study Group (IBCSG) 23- Clinical Trial Study, I would consider extrapolating the above study results to this patient, and I would conclude that there would be no added benefit in this patient to perform a completion right axillary lymph node dissection at a subsequent time. Therefore, I would not recommend a completion right axillary lymph node dissection procedure. The patient will continue her ongoing postoperative follow-up with Dr. Tyrell Daily of [facility] Plastic surgery for management of her right-sided surgical MOLLY drains. We will initiate the process of sending off Oncotype DX recurrence score testing on the patient's right breast cancer process. We will subsequently have the patient be evaluated by 1 of the [facility] breast medical oncologist to discuss postoperative adjuvant therapyrecommendations based upon her eventual Oncotype DX results with the patient's biopsy-proven right breast cancer process. The patient will be due for next annual left breast digital mammogram by January2023. We will continue to follow the patient annually. Therefore, we will next see the patient backon 02/02/2023, for repeat clinical exam and left breast digital mammogram. The patient should see us back sooner for new breast related problems or new breast related concerns. Otherwise, we will seeher back on 02/02/2023, as is outlined above. I have discussed all of these issues with the patient. I have answered all of her questions. The patient appears to understand what has been discussed, and she reports that she will follow-through accordingly, as is outlined above. We have given the patient contact information for our nurse practitioner, Effie Moe, and have instructed the patient to remain in contact with our nurse practitioner, Effie Moe, through [employer], for any future upcoming questions or concerns that they have regarding their management or follow-up in our [facility] breast Surgical Oncology Clinic. . On 06/29/2022, the patient underwent exchange of her right-sided tissue family practice physician for permanent right-sided silicone gel implant, and excision of right-sided cone deformity correction, and contralateral left reduction mastopexy procedure by Dr. Tyrell Daily of [facility] Plastic surgery. The patient received postoperative adjuvant postmastectomy radiation therapy to her right mastectomy/implant reconstruction site, which she completed in early August 2022. The patient was placed on postoperative adjuvant antiestrogen therapy with aromatase inhibitor, which she began in August 2022. The patient returns to my [facility] breast surgical oncology clinic at this time. Complete review of systems is otherwise negative for any new findings aside from anything else which was mentioned elsewhere within the current clinic note. PHYSICAL EXAMINATION Vital Signs: BP 121/70 Pulse 81 Temp 97.6 F (36.4 C) Ht 1.613 m (5' 3.5 ) Wt 62.1 kg (137 lb) BMI 23.89 kg/m Smoking Status Never ,Body mass index is 23.89 kg/m . Our Nursing Staff was present for the evaluation (Simin Lemos). The patient came to the clinic exam room with her . The patient's right mastectomy/implant reconstruction site looks fine. The patient has stable chronic mild skin hyperpigmentation and stable chronic mild skin thickening and stable chronic mild soft tissue thickening of the tissues of her right mastectomy/implant reconstruction site from her prior right-sided radiation therapy. The patient has no evidence of recurrent disease within the skin or within the soft tissues of the patient's right mastectomy/implant reconstruction site. The patient has no discrete, concerning, palpable left breast masses within the left breast profile. The patient has no overtly obvious discrete palpable cervical, supraclavicular, or axillary adenopathy bilaterally. The patient has no significant clinical findings in the remainder of her clinical examination of her chest region or of her clinical examination of her abdominal region. BREAST IMAGING Left breast diagnostic 3D digital mammogram was classified as BI-RADS category 2/benign findings/stable by the [facility] breast radiology staff. Heterogeneously dense breast tissue was seen within the leftbreast. Stable postsurgical changes were seen within the left breast from her prior left breast reduction surgery. No new suspicious mammographic lesions were seen within the left breast. ASSESSMENT AND PLAN ################################################################################ ############################################ The patient has a personal history of a RIGHT breast cancer process (pT2 [4.2 cm], pN1 [1/3 right axillary lymph nodes positive for macrometastatic carcinoma measuring 3 mm, without extranodal extension], 95% ER positive, 95% TX positive, HER2 negative, intermediate grade invasive mammary carcinomawith lobular features of the 5:00 position of the right breast [3.2 cm FRN]; Oncotype DX recurrencescore 23), which was initially diagnosed in late December 2021, and for which the patient underwent a right total mastectomy procedure and right axillary sentinel lymph node mapping and biopsy procedure (by mo) and placement of a right-sided tissue family practice physician (by Dr. Tyrell Daily of [facility] Plastic surgery) at [facility] on 04/10/2022. The patient has a personal history of NEGATIVE comprehensive genetic testing for any form of hereditary breast cancer syndrome, as based upon [place] 77- gene CancerNext-Expanded+RNA panel testfrom blood collected on 03/04/2022. 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 ################################################################################ ############################################ The patient has stable clinical exam of her right mastectomy/implant reconstruction site and her contralateral left breast. Left breast diagnostic 3D digital mammogram was classified as BI-RADS category 2/benign finding/stable. We will continue to follow the patient annually. Therefore, we will next see the patient back on 03/01/2024, for repeat clinical exam and left breast digital mammogram. The patient should see us back sooner for new breast related problems or new breast related concerns. Otherwise, we will see her back on 11/04/2023, as is outlined above. I have discussed all of these issues with the patient. I have answered all of her questions. The patient appears to understand what has been discussed, and she reports that she will follow-through accordingly, as is outlined above. We have given the patient contact information for our nurse practitioner, Effie Moe, andhave instructed the patient to remain in contact with our nurse practitioner, Effie Moe,through [employer], for any future upcoming questions or concerns that they have regarding their management or follow-up in our [facility] breast Surgical Oncology Clinic. This note was dictated using S[employer] voice recognition software. Attempts at proofreading were made, but errors may occasionally still occur. I have reviewed Malia [facility] medical, surgical and other pertinent history in detail, and have updated medication and allergy information in the computerized patient record. REFERRING/PRIMARY PROVIDER(S) -Referring Provider for today's consult: Tucker Haywood MD -Primary Care Provider: Tucker Haywood documented [facility] History of Present illness Narrative* Alicia Gama - 01/27/2023 1:40 PM EDT Patient offered a medical hot mill tin roller for sensitive exam. Pt declined documented in this encounterOS[facility] History of Present illness Narrative* Kathe Liu RN - 12/09/2022 12:30 PM EDT Reporting several sharp shooting pain in R lateral chest weekly, most recently was excruciating forabout 30 seconds. * BretORALIA Cook - 12/09/2022 12:30 PM EDT Patient was evaluated by myself and Dr. Daily. 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 She is doing well but notes some shooting pains across the right breast a few times per week. She additionally has continued asymmetries between her breasts and has to wear a right breast prosthesis when wearing a bra. ROS: Denies redness, fevers, chills, drainage, swelling, pain. Objective: Physical Exam BP 116/66 (BP Location: Left arm, BP Position: Sitting) Pulse 86 Temp 97.2 F (36.2 C) (Oral) Resp 16 SpO2 100% Smoking Status Never General appearance:alert, cooperative, appears stated age Right Breast: Incision well-healed. Implant is soft. Minimal radiation skin changes. Left Breast: Incision well-healed. Larger compared to right breast by at least 1 cup size. Assessment/Plan: - We discussed that radiation does make her at increased risk of developing a capsular contracture which would be evidenced by worsening breast pain, tightness of the implant, or the implant beginning to feel firm instead of soft. - The patient does desire surgery to achieve better symmetry and does not have a preference regarding her size. She would be OK with repeat left breast reduction. She is currently not interested in autologous reconstruction of the right breast to increase its size. - Because she is at increased risk of contracture of the right breast implant which would require either total capsulectomy versus autologous reconstruction with our without an implant, we feel it would be best to delay revisions until about 6 months post-radiation. If her skin and implant looks normal, we can proceed with left breast reduction. If the patient has signs of right capsular contracture, we will consider the other above options. - Return in 3 months - Please call our clinic with any questions or concerns before your next visit * Tyrell Daily MD - 12/09/2022 12:30 PM EDT Plastic Surgery Attending Addendum I independently saw and examined Ms. Cook and have personally reviewed their chart. I have reviewed the note by Bret BARTON and made revisions to the history, examination, medical decision-making, and treatment plan as appropriate. Ms. Cook is s/p right breast implant exchange and left breast reduction 06/29/2022. The patient completed right postmastectomy radiation therapy 09/04/2022. The patient reports that the left breast is larger. On exam the bilateral breasts are well healed and appear appropriate. I recommended waiting at least 6 months and until right breast changes have stabilized before considering revisions. I discussed that revisions would primarily entail repeat left breast reduction. Follow-up in 3 months. A total of 15 minutes of slxa-vw-dxsx time was spent in this encounter, of which >50% was spent in counseling and coordination of care. Tyrell Daily MD [facility] Instructions* Patient Instructions* Tyrell Daily MD - 12/09/2022 12:30 PM EDT Follow up with Dr. Daily in 3 months documented in this [facility]-31-[facility] Evaluation note * Encounter Date Diagnosis Assessment Notes Treatment Notes Treatment Clinical Notes Oct, Moderate persistent asthmatic bronchitis with acute exacerbation (ICD-10 - J45.41) Asthma in Adults: Care Instructions material was printed. Contact office, go to urgent care or ER if you have increased difficulty in breathing or noisy breathing (wheezing), fever, chest pain. Explained that patient may need further workup, PFT, maintenance medication in the future. Discussed Albuterol in detail today. Discussed how to use inhaler. Rinse out mouth after use to avoid thrush. Discussed maintenance inhaler. All questions answered and patient sent home stable. [employer] Other 02-08-2023 History of Present illness Narrative* Laura Oliveros - 10/07/2022 9:30 AM EST NOTE: VERIFY NAME, , ADDRESS FOR CLIENT(UPDATE CATAPULT) Bra Prosthesis Note Malia Cook is being seen today at [facility] by Laura Oliveros for a Breast Issue. Her surgery was on 04/10/22. Mastectomy: R_X_ L__ Bilateral __ Lumpectomy: R__ L__ Bilateral__ Reconstruction: Yes_X_ No __ and L Reduction Reconstruction removed Yes__ No__ Orders Orders: Orders reviewed __X__ Dx code _Z85.3 Rx D. 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 Goals that were discussed with patient: Nando has just completed radiation following mastectomy, reconstruction and reduction on non-cancer breast. She is missing volume in R breast following reconstruction at center/nipple. We tried 36 and 38 bands finding the 525 fit best in larger size. The C cup brought about best symmetry in 525 style. We did try 3 different balancers for best volume and decided the osorio sales consultant insurance in sz 4 was perfect in bra. She's been wearing a razor back sports bra with bust cups most recently. She was pleased with the combination of products. Both provided symmetry, comfort and support at this time. Reason for replacement of bras: New Reason for replacement of prosthesis: New Concerns/comments about fitting: None Did you instruct client on don/doffing procedures: Yes Did you instruct client of care for pros/bras: Yes Did you instruct client of warranty/storage of pros/bras: Yes Purchased: 2 ABC 525 38C BK & BG bras, 1 Vidal 220 sz 4 sales consultant insurance Product ordered: None DID YOU RELEASE CARE INSTRUCTIONS - Yes documented in this encounterOS[facility] History of Present illness Narrative* Barbara Escobedo, PAPER WOOD CUTTER-PHARMACEUTICAL WORKER - 10/07/2022 8:30 AM EST Images from the original note were not included. RADIATION ONCOLOGY FOLLOW-UP NOTE Date of Service: 10/07/2022 PATIENT IDENTIFICATION: Malia Cook is a 62 y.o. woman with a hx of pathologic prognostic stage IB (pT2 pN1a) Grade 2 ER+(95%)/TX+(95%)/Her-2 negative invasive ductal cancer of the RIGHT breast s/p mastectomy and SLNB. Oncotype score 23. She completed adjuvant radiation therapy to her right chest wall and regional nodes to a total dose of 4256 cGY in 16 fractions on 09/04/2022. She presents for routine follow- up, fiveweeks after completing treatment. HISTORY OF PRESENT ILLNESS: Interval History: 09/24/2022: Survivorship Malia Cook presents today doing well. Her skin has healed nicely since completing radiation. She continues to moisturize three times per day. No new changes or concerns. Her range of motion is excellent. She denies any swelling in her arm. She still has some slight pinkness and dryness to her radiated chest wall especially around the area of the well healed incision line. She is taking her anastrozole and tolerating it well with occasional joint aches in the morning that are relieved with Tylenol. She denies any pain. No new palpable masses or areas of concern. No new bone or back pains.No symptoms concerning for local, contralateral or distant disease. Her energy level is back to normal. She is working out on her total gym at home and walking on the treadmill. She enjoyed a wonderful trip to [place] and is headed back out on vacation soon again. Otherwise, she denies any headaches, visual changes, or dizziness, no difficulty swallowing. No cough, chest pains or shortness of breath. No abdominal pains, nausea/vomiting, constipation or diarrhea. No changes to bowel or bladder. No w eakness. No sensory changes. Weight is stable. No other concerns noted. Radiation History: Site: Right chest wall and regional nodes Dates: 08/11/2022-09/04/2022 Dose: 4256 cGy We have reviewed Malia Cook allergies and medications, as well as medical, surgical and other pertinent history in detail, and have updated information in the computerized patient record. REVIEW OF SYSTEMS: A comprehensive Review of Systems was queried and negative, except as stated above in the HPI. PHYSICAL EXAM: BP 120/72 (BP Location: Left arm, BP Position: Sitting) Pulse 88 Temp 97.3 F (36.3 C) (Infrared) Resp 16 Wt 63.9 kg (140 lb 12.8 oz) SpO2 96% BMI 24.94 kg/m Smoking Status Never Performance status: Karnofsky scale 100 (ECOG grade 0) No limitations CONSTITUTIONAL: Well-appearing, pleasant gentleman/woman that is in no acute distress HEENT: Head NC/AT NECK: Supple, non-tender, with no lymphadenopathy. CARDIAC: Regular rate and rhythm. Normal S1, S2. No murmurs. PULMONARY/CHEST: Lungs are clear to auscultation bilaterally. No wheezes, rhonchi, or rales. BREAST EXAM: Examined in the upright and supine position. Right breast about 20% smaller than left breast. Right breast with implant, no palpable masses, skin very dry at the incision line, mild erythema diffusely and on the right neck/chest. Left breast s/p breast reduction, normal in size and contour with no dominant or palpable masses and a normal nipple areolar complex. No lymphadenopathy bilaterally ABDOMINAL: Abdomen soft, non-tender, non-distended. BACK: Non-tender to palpation. EXTREMITIES: No peripheral edema Circumference Measurement (cm) Right Left Upper Extremity (10 cm above olecranon) 32 31.5 Lower Extremity (10 cm below olecranon) 23 22 Wrist 16 16.5 Thenar 18.5 19 *Pt is left handed SKIN: Warm, dry, clear NEUROLOGIC EXAM: No focal neurologic deficit. Alert and oriented x 3. Speech is fluent. Gait and station are within normal limits. PSYCHIATRIC: Appropriate mood and affect DATA: RADIOGRAPHIC FINDINGS: no new imaging PATHOLOGIC FINDINGS: no new pathology RADIATION TOXICITY: CTCAE Breast Some values may be hidden. Unless noted otherwise, only the newest values recorded on each date aredisplayed. CTCAE BREAST 07/08/22 07/31/22 08/12/22 08/14/22 08/18/22 08/28/22 09/04/22 09/11/22 09/24/22 10/07/22 Brachial Plexopathy Grade 0 Grade 0 Grade 0 Breast Atrophy Grade 0 Grade 0 Breast Infection Grade 0 Grade 0 Breast Pain Grade 0 Chest Wall Pain Grade 0 Grade 0 Grade 0 Dermatitis Radiation Grade 0 Grade 0 Grade 1 Grade 1 Esophagitis Grade 0 Grade 0 Grade 0 Fatigue Grade 0 Grade 0 Grade 1 Grade 0 Grade 1 Grade 1 Grade 1 Grade 0 Grade 1 Grade 0 Fibrosis Deep Connective Tissue Grade 0 Grade 0 Grade 0 Grade 0 Joint Range of Motion Decreased Grade 0 Grade 0 Grade 0 Grade 0 Localized Edema Grade 0 Grade 0 Grade 0 Grade 0 Lymphedema Grade 0 Grade 0 Grade 0 Grade 0 Pruritus Grade 0 Grade 0 Grade 1 Grade 0 Pneumonitis Grade 0 Grade 0 Grade 0 Grade 0 Skin Hyperpigmentation Grade 0 Grade 0 Grade 0 Grade 0 Skin Hypopigmentation Grade 0 Grade 0 Grade 0 Grade 0 Skin Induration Grade 0 Grade 0 Grade 0 Grade 0 Skin Ulceration Grade 0 Grade 0 Grade 0 Grade 0 Telangiectasia Grade 0 Grade 0 Grade 0 Grade 0 Weight Loss Grade 0 Grade 0 Grade 0 Grade 0 Some values recorded on this date have been omitted. ASSESSMENT AND PLAN: In summary, Malia Cook is a 62 y.o. female with a hx of hx of pathologic prognostic stage IB (pT2 pN1a) Grade 2 ER+(95%)/TX+(95%)/Her-2 negative invasive ductal cancer of the RIGHT breast s/p mastectomy and SLNB. Oncotype score 23. She completed adjuvant radiation therapy to her right chest wall and regional nodes to a total dose of 4256 cGY in 16 fractions on 09/04/2022. She presents for routine follow-up, five weeks after completing treatment. She presents today for follow up, 5 weeks after completing radiation therapy. She has recovered well from the acute side effects of radiation and has expected erythema and dryness of the skin. She has no other concerns today. Disease status: GREGORY on exam today Skin care: We encouraged her to continue to moisturize the treated area daily and to wear sunscreenwhen outdoors. Breast cancer: Continues to follow up as appropriate with Medical Oncology and Surgical Oncology Endocrine therapy: Amastrozole, tolerating well with occasional joint aches relieved by Tylenol Referrals: NA Mammogram: Scheduled for 01/27/2023 Follow up: 1 year, or sooner, should she have any questions or concerns Thank you for allowing me to participate in the management and care of this pleasant patient. Please do not hesitate to contact me with any questions. Barbara Escobedo, MSN, [facility], Radiation Oncology [phone] Office [email or web address] * Eder Orosco RN - 10/07/2022 8:30 AM EST Breast Cancer (Follow up for radiation therapy for RIGHT sided breast cancer completed 09/04/2022.) Pain Assessment: Presence of Pain: denies pain/discomfort Fatigue Assessment: Fatigue Fatigue: Absent or within normal limits Breast skin changes: Faint erythema to the right chest wall. Reports moisturizing 3 times a day with Lotion. Arm concerns: No Sleep disturbances: No Coping issues:No Patient concerns: None at this time Recommendations: Moisturize daily. Call clinic should questions or concerns arise. Patient Handouts: None Malia Cook was offered and declined a Medical Civil Service Worker for this exam/procedure/test 10/07/2022. Report given to CARTER North RN documented in this [facility]23 Instructions* Patient Instructions* CARTER Coates - 10/07/2022 8:30 AM EST Your Radiation Oncology Team Advanced Practice Provider: CARTER North Primary Nurses: DARLENE MoreauN, RN; ADAN Gaines, BSN, RN; Laura, BSN, RN; DARLENE FaganN, RN We are available to take calls at [phone] Wednesday-Wednesday 8:00am-4:30pm. Please allow 24 hours for non-urgent return phone calls and MyChart messages. During non-business hours and holidays, phone calls will be managed by after- hours [facility] RN's. Please allow at least 10 business days for your team to complete any paperwork. When requesting medication refills that our team prescribed for you, please try to provide as much notice when possible (5 days) in order to ensure that you do not run out of medication. TAKE BACK PROGRAM: A drug take-back program is the best method to dispose of un-needed opioids safely. You can locate the take-back program closest to you @ https://takebackday.meir.gov under the COLLECTION SITE LOC TODAY'S SUMMARY -You have no evidence of recurrence on today's exam -Continue taking your anti-estrogen therapy (anastrozole) -Continue skin care with moisturizer at least once per day and when sunscreen (>50 spf) when outdoors. -Keep appointments as scheduled with your other providers -Your next mammogram is scheduled for December 2022 -Follow up with [facility] (CARTER North) or MD in about 12 months -Please do not hesitate to call [phone] if you have any questions or concerns prior to your next visit. -[place] symptoms to look out for: new lumps or bumps on your chest/breast, under your armpit or by your collarbones; difficulty breathing; chest pains; new pains in bony areas that persist and/or wake you up in the middle of the night; headaches that persist; weakness in the extremities; falls -Thank you! CARTER North [facility] Radiation Oncology [phone] [facility] this [facility] History of Present illness Narrative* CARTER Coates - 09/04/2022 9:30 AM EST Images from the original note were not included. RADIATION ONCOLOGY ON-TREATMENT VISIT Date of service: 09/04/2022 ID: Malia Cook is a 61 y.o. postmenopausal woman with pathologic prognostic stage IB (pT2 pN1a) Grade 2 ER+(95%)/TX+(95%)/Her-2 negative invasive ductal cancer of the RIGHT breast s/p mastectomyand SLNB. Tumor Pathology: Grade 2, 4.2 cm invasive ductal cancer of the RIGHT breast, negative margins, 1/3 LN positive, Oncotype 23. Treatment site: Right chest wall and node Current total dose: 4256 cGy Fraction number: Planned Total Dose: 4256 cGy Radiation Start Date: 08/11/2022 Missed treatments: 0 Subjective: She reports doing well overall. Pruritic erythematous rash to her right chest. Moisturizing BID. Discomfort 2/10 to right chest wall and shoulder, relieved with Tylenol. Moderate fatigue. Objective: BP 147/83 (BP Location: Left arm, BP Position: Sitting) Pulse 88 Temp 97.4 F (36.3 C) (Infrared) Resp 17 Wt 65.3 kg (144 lb) SpO2 94% BMI 25.51 kg/m Smoking Status Never ECOG PS: Performance status: Karnofsky scale 90 (ECOG grade 0) Performs normal activity with minor effort General: Well-appearing, pleasant, NAD Breasts: Well-healed right chest wall incision with implant in place. No overlying skin changes Toxicity: CTCAE Breast Some values may be hidden. Unless noted otherwise, only the newest values recorded on each date aredisplayed. CTCAE BREAST 05/20/22 06/05/22 06/17/22 07/08/22 07/31/22 08/12/22 08/14/22 08/18/22 08/28/22 09/04/22 Brachial Plexopathy Grade 0 Grade 0 Breast Atrophy Grade 0 Grade 0 Breast Infection Grade 0 Grade 0 Breast Pain Grade 0 Chest Wall Pain Grade 0 Grade 0 Dermatitis Radiation Grade 0 Grade 0 Grade 1 Esophagitis Grade 0 Grade 0 Fatigue Grade 1 Grade 0 Grade 1 Grade 0 Grade 0 Grade 1 Grade 0 Grade 1 Grade 1 Grade 1 Fibrosis Deep Connective Tissue Grade 0 Grade 0 Grade 0 Joint Range of Motion Decreased Grade 0 Grade 0 Grade 0 Localized Edema Grade 0 Grade 0 Grade 0 Lymphedema Grade 0 Grade 0 Grade 0 Pruritus Grade 0 Grade 0 Grade 1 Pneumonitis Grade 0 Grade 0 Grade 0 Skin Hyperpigmentation Grade 0 Grade 0 Grade 0 Skin Hypopigmentation Grade 0 Grade 0 Grade 0 Skin Induration Grade 0 Grade 0 Grade 0 Skin Ulceration Grade 0 Grade 0 Grade 0 Telangiectasia Grade 0 Grade 0 Grade 0 Weight Loss Grade 0 Grade 0 Grade 0 Some values recorded on this date have been omitted. Technical: Dr. Gomez personally reviewed and approved all treatment imaging, table shifts and the daily set-up this week. Assessment/Plan: Tolerating radiotherapy well Completing radiation today Evaluated the patient for radiation reactions/sides effects and they were noted, as stated above. Radiation therapy side effects consistent with radiation dose. Continue skin care. Increase moisturizing to TID - QID, triamcinolone for pruritic rash may be increased to TID, use 15 minutes prior to moisturizing Follow up with nursing by phone 1 week; follow up with AKOSUA 4-6 weeks Reviewed importance of UV shirts, SPF 50-100 for planned vacation in [place] next week No orders of the defined types were placed in this encounter. Barbara Escobedo, MSN, PAPER WOOD CUTTER-PHARMACEUTICAL WORKER [facility], Radiation Oncology [phone] Office [email or web address] I saw and independently examined this patient today. I discussed my findings and the therapeutic plan with the MUD LOGGER. I agree with the MUD LOGGER's history, physical examination, and medical decisions as outlined. Deepti Gomez M.D., Ph.D. Cd Technician in Radiation Oncology Pager: [phone] * Lizzeth May RN - 09/04/2022 9:30 AM EST On Treatment Visit (RIGHT Chest Wall 16/16 Fractions; 4256/4256 cGy ) Pain Assessment: Presence of Pain: complains of pain/discomfort Pain Location: shoulder, right (RIGHT chest wall) Pain Management Interventions: declines intervention DVPRS: Rest: 2- mild pain Pain Quality: ( hurts all the time ) Factors That Relieve Pain: (Tylenol 1,000mg) Comfort/Acceptable General Pain Level/Goal: 4 Fatigue Assessment: Fatigue Fatigue: Fatigue relieved by rest Breast skin changes: Mild erythema Hyperpigmentation to the right supraclavicular and right chest wall. Reports moisturizing with Aquaphor and Lotion 2-3 times a day. Rash: Yes Itching: Yes Right Clavicular area Per order discussed applying Triamcinolone Cream up to 3 times aday 20-30 minutes before lotion. Patient is agreeable to this. Discussed applying Aquaphor up to 3 times a day. Patient is agreeable to this. Arm concerns: No Other concerns: No Recommendations: Moisturize 2-3 times a day. Reinforced daily showers with moisturizing soap. Wear protective clothing and/or SPF 50-70 when outdoors. Wear a supportive, non-compressive bra. Rest as needed for fatigue. Continue to moisturize 2 times per day until 4-6 week follow up in clinic. Call clinic should questions or concerns arise. HANDOUTS: None Malia Cook was offered and declined a Medical Civil Service Worker for this exam/procedure/test 09/04/2022. Report given to CARTER North RN documented in this [facility]23 Instructions* Patient Instructions* CARTER Coates - 09/04/2022 9:30 AM EST Your Radiation Oncology Team Doctor: Deepti Gomez MD Advanced Practice Provider: CARTER North Primary Nurses: AUBREY Moreau, RN; AUBREY Galvin, RN; AUBREY Sanchez, RN We are available to take calls at [phone] Wednesday-Wednesday 8:00am-4:30pm. Please allow 24 hours for non-urgent return phone calls and 500pxhart messages. During non-business hours and holidays, phone calls will be managed by after- hours [facility] RN's. Please allow at least 10 business days for your team to complete any paperwork. When requesting medication refills that our team has prescribed for you, please try to provide as much notice when possible (5 days) in order to ensure that you do not run out of medication. TAKE BACK PROGRAM: A drug take-back program is the best method to dispose of un-needed opioids safely. You can locate the take-back program closest to you @ https://takebackday.meir.gov under the COLLECTION SITE NURSERY HELPER tab. Today's Summary: -You have completed radiation today! -Your side effects, particularly skin irritation and fatigue, may get slightly worse before they get better. This is normal -These are signs to call us regarding worsening skin irritation: Peeling of the skin; blistering; discharge/sticky material on your skin; bleeding of the skin with light touching, pain not relieved with [id number] medications -You will have a follow-up to check your skin with the nurses about 1 week after you finish radiation therapy. This is okay to do over the phone, but if you are feeling like you prefer to be seen in person please give us a call and let us know. -Return to see MD or AKOSUA about 4-6 weeks after radiation -Continue your current skin care routine until at least the 1 month follow-up visit -If you have been prescribed anti-estrogen therapy for your breast cancer, you can start this 1-2 weeks after you complete radiation therapy. -Please don't hesitate to call [phone] with any concerns prior to your next visit -Thank you! Deepti Gomez MD & CARTER North [facility] Radiation Oncology [phone] documented in this [facility]12-20-2022 History of Present illness Narrative* CARTER Coates - 08/18/2022 1:30 PM EST Images from the original note were not included. RADIATION ONCOLOGY ON-TREATMENT VISIT Date of service: 08/18/2022 ID: Malia Cook is a 61 y.o. postmenopausal woman with pathologic prognostic stage IB (pT2 pN1a) Grade 2 ER+(95%)/TX+(95%)/Her-2 negative invasive ductal cancer of the RIGHT breast s/p mastectomyand SLNB. Tumor Pathology: Grade 2, 4.2 cm invasive ductal cancer of the RIGHT breast, negative margins, 1/3 LN positive, Oncotype 23. Treatment site: Right chest wall and node Current total dose: 1596 cGy Fraction number: 02/12 Planned Total Dose: 4256 cGy Radiation Start Date: 08/11/2022 Missed treatments: 0 Subjective: She reports doing well overall. She has some chest wall tenderness but no pain, does not take anything for it as it is manageable. She is moisturizing twice daily. Grade 1 fatigue. No skin irritation. ROM good Objective: BP 141/76 (BP Location: Left arm, BP Position: Sitting) Pulse 74 Temp 97.5 F (36.4 C) (Infrared) Resp 16 Wt 64.3 kg (141 lb 12.8 oz) SpO2 98% BMI 25.12 kg/m Smoking Status Never ECOG PS: Performance status: Karnofsky scale 90 (ECOG grade 0) Performs normal activity with minor effort General: Well-appearing, pleasant, NAD Breasts: Well-healed right chest wall incision with implant in place. No overlying skin changes Toxicity: CTCAE Breast Some values may be hidden. Unless noted otherwise, only the newest values recorded on each date aredisplayed. CTCAE BREAST 05/06/22 05/13/22 05/20/22 06/05/22 06/17/22 07/08/22 07/31/22 08/12/22 08/14/22 08/18/22 Brachial Plexopathy Grade 0 Grade 0 Breast Atrophy Grade 0 Grade 0 Breast Infection Grade 0 Grade 0 Breast Pain Grade 0 Chest Wall Pain Grade 0 Dermatitis Radiation Grade 0 Grade 0 Esophagitis Grade 0 Grade 0 Fatigue Grade 1 Grade 1 Grade 1 Grade 0 Grade 1 Grade 0 Grade 0 Grade 1 Grade 0 Grade 1 Fibrosis Deep Connective Tissue Grade 0 Grade 0 Joint Range of Motion Decreased Grade 0 Grade 0 Localized Edema Grade 0 Grade 0 Lymphedema Grade 0 Grade 0 Pruritus Grade 0 Grade 0 Pneumonitis Grade 0 Grade 0 Skin Hyperpigmentation Grade 0 Grade 0 Skin Hypopigmentation Grade 0 Grade 0 Skin Induration Grade 0 Grade 0 Skin Ulceration Grade 0 Grade 0 Telangiectasia Grade 0 Grade 0 Weight Loss Grade 0 Grade 0 Some values recorded on this date have been omitted. Technical: Dr. Gomez personally reviewed and approved all treatment imaging, table shifts and the daily set-up this week. Assessment/Plan: Tolerating radiotherapy well Evaluated the patient for radiation reactions/sides effects and they were noted, as stated above. Radiation therapy side effects consistent with radiation dose. Continue skin care. Continue radiation therapy as planned No orders of the defined types were placed in this encounter. Barbara Escobedo, MSN, PAPER WOOD CUTTER-PHARMACEUTICAL WORKER [facility], Radiation Oncology [phone] Office [email or web address] I saw and independently examined this patient today. I discussed my findings and the therapeutic plan with the MUD LOGGER. I agree with the MUD LOGGER's history, physical examination, and medical decisions as outlined. Deepti Gomez M.D., Ph.D. Cd Technician in Radiation Oncology Pager: [phone] * Cara García RN - 08/18/2022 1:30 PM EST On Treatment Visit (RIGHT Chest Wall 02/12 Fractions; 1596/4256 cGy ) Pain Assessment: Presence of Pain: denies pain/discomfort Fatigue Assessment: Fatigue Fatigue: Fatigue relieved by rest Breast skin changes: No redness to the right breast and right axilla. Reports moisturizing with Lotion 2 times a day. Rash: No Itching: No Arm concerns: No Other concerns: No Recommendations: Moisturize 2-3 times a day. Rest as needed for fatigue. Call clinic should questions or concerns arise. HANDOUTS: None Malia Cook was not offered a Medical Civil Service Worker for this exam/procedure/test 08/18/2022. Report given to Barbara Escobedo APRN-EDEN García RN documented in this [facility]12-16-2022 History of Present illness Narrative* Saw Wheatley MD - 08/14/2022 1:40 PM EST Images from the original note were not included. RADIATION ONCOLOGY ON-TREATMENT VISIT Date of service: 08/14/2022 ID: Malia Cook is a 61 y.o. postmenopausal woman with pathologic prognostic stage IB (pT2 pN1a) Grade 2 ER+(95%)/TX+(95%)/Her-2 negative invasive ductal cancer of the RIGHT breast s/p mastectomyand SLNB. Tumor Pathology: Grade 2, 4.2 cm invasive ductal cancer of the RIGHT breast, negative margins, 1/3 LN positive, Oncotype 23. Treatment site: Right chest wall and node Current total dose: 1064 cGy Fraction number: 12/13 Planned Total Dose: 4256 cGy Radiation Start Date: Missed treatments: 0 Subjective: She reports doing well overall. She has some chest wall tenderness but does not take anything for it as it is manageable. She is moisturizing once daily. She denies fatigue, skin irritation. She started taking Effexor for hot flashes last night which made her nauseous. Objective: BP 148/82 (BP Location: Left arm, BP Position: Sitting) Pulse 73 Temp 97.5 F (36.4 C) (Infrared) Resp 16 Wt 64.8 kg (142 lb 12.8 oz) SpO2 100% BMI 25.30 kg/m Smoking Status Never ECOG PS: Performance status: Karnofsky scale 100 (ECOG grade 0) No limitations General: Well-appearing, pleasant, NAD Breasts: Well-healed right chest wall incision with implant in place. No overlying skin changes Toxicity: CTCAE Breast Some values may be hidden. Unless noted otherwise, only the newest values recorded on each date aredisplayed. CTCAE BREAST 04/29/22 05/06/22 05/13/22 05/20/22 06/05/22 06/17/22 07/08/22 07/31/22 08/12/22 08/14/22 Brachial Plexopathy Grade 0 Breast Atrophy Grade 0 Breast Infection Grade 0 Chest Wall Pain Grade 0 Dermatitis Radiation Grade 0 Esophagitis Grade 0 Fatigue Grade 1 Grade 1 Grade 1 Grade 1 Grade 0 Grade 1 Grade 0 Grade 0 Grade 1 Grade 0 Fibrosis Deep Connective Tissue Grade 0 Joint Range of Motion Decreased Grade 0 Localized Edema Grade 0 Lymphedema Grade 0 Pruritus Grade 0 Pneumonitis Grade 0 Skin Hyperpigmentation Grade 0 Skin Hypopigmentation Grade 0 Skin Induration Grade 0 Skin Ulceration Grade 0 Telangiectasia Grade 0 Weight Loss Grade 0 Some values recorded on this date have been omitted. Dermatitis: Grade 0 = none Fatigue: Grade 0 = None Breast Pain: Grade 0 = None Esophagitis: None Technical: I have personally reviewed and approved all treatment imaging, table shifts and the daily set-up this week. Assessment/Plan: Tolerating radiotherapy well Evaluated the patient for radiation reactions/sides effects and they were noted, as stated above. Radiation therapy side effects consistent with radiation dose. Continue skin care. Continue radiation therapy as planned No orders of the defined types were placed in this encounter. Thank you for allowing us to participate in the management and care of this pleasant patient. The above plan was discussed with Dr. Gomez. Please do not hesitate to contact us with any questions. Saw Wheatley MD PGY-5, Radiation Oncology Pager: [phone] I saw and independently examined this patient today. I discussed my findings and the therapeutic plan with the Resident. I agree with the Resident's history, physical examination, and medical decisions as outlined. Deepti Gomez M.D., Ph.D. Cd Technician in Radiation Oncology Pager: [phone] * Eder Orosco RN - 08/14/2022 1:40 PM EST On Treatment Visit (For radiation therapy for RIGHT sided breast cancer. 12/13 fractions, 1064/4256 cGy delivered.) Pain Assessment: Presence of Pain: denies pain/discomfort Fatigue Assessment: Fatigue Fatigue: Fatigue relieved by rest Breast skin changes: Denies concerns or issues to the right chest wall. Reports moisturizing with Lotion 1 times a day. RN educated patient on using lotion at least twice per day. Rash: No Itching: No Arm concerns: No Other concerns: No Recommendations: Moisturize 2-3 times a day. Call clinic should questions or concerns arise. HANDOUTS: None Malia Cook was offered and declined a Medical Civil Service Worker for this exam/procedure/test 08/14/2022. Report given to Dr. Dioni Orosco RN documented in this [facility]12-14-2022 History of Present illness Narrative* Indu Ricardo PA-C - 08/12/2022 12:45 PM EST Patient was evaluated by myself and Dr. Daily. Subjective: S/p right mastectomy ([place]) 04/10/2022 S/p right breast reconstruction with family practice physician 04/10/2022 S/p right breast implant exchange, left breast reduction, excision of right breast standing cone deformity, 06/29/2022 Postoperative Evaluation HPI: The patient presents for previously scheduled follow up. She is doing well. She feels her breasts are asymmetric with the left being larger than the right. Reports she is starting 3-weeks of radiation on her right breast. ROS: Denies redness, fevers, chills, drainage, swelling, pain. Objective: Physical Exam BP 131/73 (BP Position: Sitting) Pulse 76 Temp 97.6 F (36.4 C) (Oral) Resp 16 SpO2 99% Smoking Status Never General appearance:alert, cooperative, appears stated age Right Breast: Incision well-healed. Implant is soft. Left Breast: Incision well-healed. Larger compared to right breast. Assessment/Plan: - Activity restrictions lifted - Revisions for breast asymmetries were discussed; will hold off on any further reconstruction plans until after completion of radiation - Discussed risks of radiation to the implant; patient voiced understanding - RTC in November 2022 - Please call our clinic with any questions or concerns before your next visit documented in this [facility]12-14-2022 Instructions* Patient Instructions* Bret Padilla PA-C - 08/12/2022 12:45 PM EST Return in November 2022 documented in this [facility]12[facility] History of Present illness Narrative* Anjelica Gonzales RN - 08/12/2022 11:00 AM EST Patient offered a medical hot mill tin roller for sensitive exam. Pt declined. * Mel Giron MD - 08/12/2022 11:00 AM EST Nando Cook is a 61 y.o. female who presents to the [facility] for Chief Complaint Patient presents with Follow-up Referring Provider: Marlene Olivas, JACKIE* Breast Surgeon: Dr. Smallwood Plastic Surgeon: Dr. Daily Radiation Oncologist: Dr. Gomez PCP: Dr. 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 Today, Nando reports the following: - She is doing well. - Start radiation yesterday. First session went well. - Still having hot flashes and night sweats frequently, but they are tolerable. Not taking anythingnow. - Hip hurts if she sleeps on her left side. TMJ if she sleeps on right. No stiffness or pain duringday. - Vaginal dryness still present. -No new breast concerns - Remaining ROS unremarkable. Oncologic History: Briefly, Malia Cook's oncologic history is summarized by the followin01/15/22 Mammo/US: RIGHT BREAST: Macro lobulated spiculated opacity within the posterior lower inner quadrant corresponding to patient's palpable lump. Ultrasound evaluation demonstrates a 4.5 x 1.8 x 1.5 cm lobular, spiculated, heterogeneous mass at the 5 o'clock position, 3.2 cm from the nipple, concerning for malignancy 01/20/22 Right Breast Bx 5:00 position (1.9cm) Grade 1, Invasive Carcinoma with mixed ductal and lobular features ER >90%, TX 80-90%, HER 2 IHC: 2+, FISH ratio: 1.8, Average HER 2 signal/cell: 3.73 02/24/[address] Smallwood, MRI ordered 02/27/22 MRI Breast: The right breast biopsy-proven malignancy is identified in the inferior central and inferior medial aspects measuring 4.5 x 2.9 x 3.0 cm.There is no axillary lymph adenopathy 03/04/22 Genetic Testing: negative 03/20/22 Dr Giron to establish care 04/10/22: Right breast mastectomy. Pathology revealed invasive ductal carcinoma, grade 2, measuring4.2 cm. 1 lymph node with macrometastatic carcinoma. [id number]. 08/11/22: Started adjuvant radiation Pertinent Physical Exam: Vitals: BP 135/64 (BP Location: Left arm, BP Position: Sitting) Pulse 90 Temp 97.6 F (36.4 C) (Oral) Resp 18 Wt 64.7 kg (142 lb 11.2 oz) SpO2 99% BMI 25.28 kg/m Smoking Status Never Patient's Current Performance Status 0 General/Constitutional: Well developed, well nourished female, who looks their stated age. No acutedistress. HEENT: Head: Normocephalic and atraumatic. Eyes: Pupils are equal, round, and reactive to light andaccomodation. Extraocular movements are intact. Sclerae are anicteric. Neck: Supple, non-tender, with no lymphadenopathy. Cardiac: Regular rate and rhythm. Normal S1, S2. No murmurs, rubs or gallops. Pulmonary/Chest: Lungs are clear to auscultation bilaterally. No wheezes, rhonchi or rales noted. Abdominal: Abdomen with normoactive bowel sounds in all four quadrants. Soft, non-tender, non-distended. No organomegaly. Extremities: Normal range of motion in all four extremities, with normal strength equally and symmetrically. No cyanosis or clubbing or peripheral edema. Neurological: Conscious, alert and oriented. Cranial nerves II through XII are intact grossly and symmetrically. No focal neurologic deficit. Skin: Skin is warm and dry. She is not diaphoretic. Psychiatric: Appropriate mood and affect. Back: No CVA or point vertebral tenderness. Lymph: No supraclavicular or axillary adenopathy. Right Breast: S/p mastectomy and reconstruction. No masses or nodules. No right axillary lymphadenopathy Left Breast: S/p mastopexy with well-healed incision. Normal without suspicious masses, skin or nipple changes or axillary nodes Chest Wall: No abnormalities noted. Pertinent Labs, Imaging and Pathology Imaging Data: DEXA (08/12/22) CURRENT BONE MINERAL DENSITY (BMD) Region: g/cm2 T-Score Lumbar 1-4 Spine: 1.042 -1.1 Left Femoral Neck: 0.910 -0.9 Left Total Hip: 0.959 -0.4 Right Femoral Neck: 0.876 -1.2 Right Total Hip: 0.924 -0.7 IMPRESSION IMPRESSION: Based on BMD and WHO criteria diagnosis is consistent with osteopenia. Other Data: Surgical Pathology Report, [id number], 04/10/2022 Pathologic Diagnosis A. [place] lymph node #1, right axilla, excision: 1 lymph node with macrometastatic carcinoma by H&E and AE1/3 B. [place] lymph node #2, right axilla, excision: 1 lymph node, negative for carcinoma by H&E and AE1/3 C. Non-sentinel lymph node #1, right axilla, excision: 1 lymph node, negative for carcinoma by H&E D. Skin, original skin entrances site, 4 o'clock axis from prior diagnostic right breast ultrasound-guided biopsy, excision: Benign skin E. 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, see synoptic report Invasive carcinoma is 3 mm from the closest margin (anterior-inferior) SYNOPTIC REPORT FOR INVASIVE BREAST CARCINOMA Specimen (P=partial, M=mastectomy): M Laterality (R=right, L=left): R Focality (U=unifocal, M=multifocal): U Tumor size (cm): 4.2 cm Histologic type: Ductal Histologic grade: 2 Tubule score (1-3): 3 Nuclear score (1-3): 2 Mitotic score (1-3): 1 Skin, nipple epidermis, skeletal muscle (I=involved, N=negative, NA=not applicable): N Lymphovascular invasion (P=present, N=not identified): Present Margins of main specimen (P=positive, N=negative): N Distance to closest margin of main specimen (mm): 3 mm Designation of closest margin of main specimen: Anterior-inferior Designation of other margins of main specimen </=1 mm: N Re-resection margin status (P=positive, N=negative, NA=not applicable): NA DCIS (P=present, N=not identified): N Regional lymph nodes: Total number of lymph nodes: 3 Number of sentinel lymph nodes: 2 Number with macrometastases: 1 Number with micrometastases: 0 Number with isolated tumor cells: 0 Size of largest conrado metastasis (mm): 3 mm Size of extranodal extension (mm) (N=not identified): N Estrogen receptor: Positive (95%, strong intensity) Progesterone receptor: Positive (95%, strong intensity) HER2 IHC: Equivocal (Score 2+) HER2 FISH: Negative (ratio: 1.8, avg. HER2/cell: 3.73) per outside report Specimen in which ER/TX/HER2 performed: Previous outside biopsy [id number] pTNM: pT2 pN1a Additional findings: Biopsy site changes, seborrheic keratosis Comments: The metastatic deposit in Part A is not visible on the frozen section slide, and best visualized on the cytokeratin immunostained level. Immunohistochemical stains (on block E7) support thediagnosis. E-cadherin and p120 are positive, confirming ductal phenotype. Foci of lymphovascular invasion are positive for CD31 and ERG, and are negative for p40. Labs: WBC Count Date Value Ref Range Status 04/01/2022 4.76 3.99 - 11.19 K/uL Final Hemoglobin Date Value Ref Range Status 04/01/2022 12.3 11.4 - 15.2 g/dL Final Hematocrit Date Value Ref Range Status 04/01/2022 37.3 34.9 - 44.3 % Final Platelet Count Date Value Ref Range Status 04/01/2022 214 150 - 393 K/uL Final Mean Cell Volume Date Value Ref Range Status 04/01/2022 97.4 79.6 - 97.7 fL Final ALT Date Value Ref Range Status 04/01/2022 23 9 - 48 U/L Final AST Date Value Ref Range Status 04/01/2022 22 10 - 39 U/L Final Albumin Date Value Ref Range Status 04/01/2022 4.7 3.5 - 5.0 g/dL Final Bilirubin Direct Date Value Ref Range Status 02/24/2022 0.1 <0.3 mg/dL Final Bilirubin Total Date Value Ref Range Status 04/01/2022 0.3 <1.5 mg/dL Final BUN Date Value Ref Range Status 04/01/2022 14 7 - 25 mg/dL Final Creatinine Date Value Ref Range Status 04/01/2022 0.82 0.50 - 1.20 mg/dL Final Total Protein Date Value Ref Range Status 04/01/2022 7.2 6.4 - 8.3 g/dL Final Glucose Date Value Ref Range Status 04/01/2022 94 70 - 99 mg/dL Final Potassium Date Value Ref Range Status 04/01/2022 3.8 3.5 - 5.0 mmol/L Final Chloride Date Value Ref Range Status 04/01/2022 103 98 - 108 mmol/L Final Impression and Recommendations: Impression: Malia Cook is a postmenopausal female diagnosed in December 2021 with at least stage IBstrongly hormone positive, Her-2 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 She is here today for follow up. Cancer Staging Malignant neoplasm of lower-inner quadrant of right breast of female, estrogen receptor positive Staging form: Breast, AJCC 8th Edition - Clinical stage from 01/20/2022: Stage IB (cT2, cN0, cM0, G1, ER+, TX+, HER2-) - Pathologic stage from 04/10/2022: Stage IB (pT2, pN1a(sn), cM0, G2, ER+, TX+, HER2-, Oncotype DX score: 23) Recommendations: 1. 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 Oncotype Dx 23. -RxPONDER (SWOG S1007) demonstrated no difference in 5 year invasive disease- free survival benefit between endocrine therapy plus chemotherapy vs endocrine therapy alone (91.9% vs 91.6%) for postmenopausal women with HR-positive, HER2- negative breast cancer and Oncotype Dx score less than or equal to 25. -Given this we discussed recommendation for adjuvant endocrine therapy. Endocrine therapy would be recommended for a minimum of 5 years and given postmenopausal status, aromatase inhibitor is standard of care. We reviewed common and serious adverse effects of aromatase inhibitors were reviewed inclu ding arthralgias, joint stiffness, vasomotor symptoms, vaginal dryness, dyspareunia, and increased bone thinning. Prescription for anastrozole sent. Plan to start after completion of radiation. -Mammogram and follow-up with Dr. Smallwood scheduled 02/02/23. -Saw Dr. Gomez for consultation in February. Per patient preference, radiation was deferred and adpkiys66/13/22. -Underwent right breast implant exchange and left mastopexy on 06/29/22 -Start anastrozole on 09/14/22. -RTC in 3 months for toxicity check 2. Supportive Care -Reviewed patient education on managing hot flashes and vaginal dryness. -Start on venlafaxine for hot flashes. -Calcium and Vitamin D3 for osteoporosis prevention. 3. Bone Health A. DEXA (08/12/22) with osteopenia B. Recommend calcium and vitamin D C. Recommend weight bearing exercises at least twice weekly 4. Healthy Lifestyle A. Reviewed importance of healthful lifestyle choices including maintaining healthy weight and continuing active aerobic exercise as tolerate. Discussed goal for balanced diet with adequate intake offruits and vegetables. Also reviewed goal of 150 minutes of aerobic exercise per week. 5. Survivorship: Scheduled 09/24/22 RTC 4 months to see AKOSUA for evaluation and toxicity check. All of the patient's questions were addressed. They were given our office contact information to reach us with further questions. Documented by Courtney Chahal, for Dr. Mack MD on 08/12/2022 at 11:36 AM. All medical record entries made by the Scribe were at my direction and personally dictated by me, Dr. Mack MD. I have reviewed the chart and agree that the record accurately reflects my personal performance of the history, physical exam, assessment and plan. I have also personally directed, reviewed, and agree with the discharge instructions. Mel Giron MD, MEd Cd Technician of Internal Medicine Division of Medical Oncology [facility] Instructions* Patient Instructions* Anjelica Gonzales RN - 08/12/2022 11:00 AM EST Images from the original note were not included. Store your prescribed pain medication in a locked cabinet or in an area only accessible to you. When you no longer need your prescribed pain medication, dispose of it immediately by one of the safe methods listed below: TAKE BACK PROGRAM: A drug take-back program is the best method to dispose of un- needed opioids safely. You can locate the take-back program closest to you @ https://takebackday.meir.gov under the COLLECTION SITE NURSERY HELPER tab. Never dispose of un-needed medications down the sink or toilet. Instead, crush the medication and mix with damp coffee grounds or cat litter, place in a sealed plastic freezer bag, and dispose of in your regular trash. Your Medical/Oncology Team Doctor: Mel Giron MD Nurse Practitioner: Barbara Santiago APRN-EDEN Primary Nurses: DARLENE DejesusN, RN, Dayami, RN, BSN, OCN, Kelsie, RN, BSN, OCN We are available to take calls Wednesday-Wednesday 8:00am-4:30pm. During non-business hours and holidays phone calls will be managed by after-hours JL/Polina RN's. Please allow at least 10 business days for your team to complete any paperwork. When requesting medication refills, please try to provide as much notice as possible (5 days) in order to ensure that you do not run out of medication. documented in this [facility]12-02-2022 History of Present illness Narrative* Saw Wheatley MD - 07/31/2022 12:30 PM EST RADIATION ONCOLOGY FOLLOW UP VISIT DOS: 07/31/2022 REFERRING PROVIDER: Tucker Haywood MD OTHER PROVIDERS: Dr. Smallwood, Dr. Daily, Dr. Giron IDENTIFICATION: Malia Cook is a 61 y.o. postmenopausal woman with pathologic prognostic stage IB (pT2 pN1a) Grade 2 ER+(95%)/TX+(95%)/Her-2 negative invasive ductal cancer of the RIGHT breast s/p mastectomy and SLNB. Pathology consistent with Grade 2, 4.2 cm invasive ductal cancer of the RIGHT breast, negative margins, 1/3 LN positive, Oncotype 23. She presents today for consideration of radiation therapy. Oncologic history: Lump felt in right breast around the beginning of 2021. She had cysts before and they normally wentaway until around Mother's Day when she saw puckering of the skin and realized it was more than just a cyst. She then went for evaluation. 01/15/22: Bilateral diagnostic mammogram w kathy & Right breast US: macro lobulated spiculated opacity within the posterior lower inner quadrant corresponding to patients palpable lump. On US showslobular, spiculated, heterogeneous mass at 5:00 position, 3.2 cm FN, measuring 4.5 x 1.8 x 1.5 cm. C oncerning for malignancy (BIRADS 4) 01/20/22: right breast US biopsy, 5:00: -invasive carcinoma with mix ductal and lobular feature, grade 1 - ER positive (>90%), TX positive (80-90%), HER2 (2+) by IHC, FISH - negative (HER2/CEP17: 1.8) 02/18/22: [facility] radiology second opinion read: Biopsy-proven carcinoma in the 5:00 right breast. Mammographically the central core of the mass measures approximately 4.5 x 2.9 x 3.0 cm. 02/24/22: Establish care with Dr. Smallwood of [place]. recommend repeating right breast ultrasound tobetter size the overall sonographic abnormality within the right breast representing her right breast cancer process. We discussed obtaining right axillary ultrasound to sonographically evaluate her right axillary lymph nodes. We discussed the possibility of consideration of subsequently ordering bilateral breast MRI on the patient. Recommend right mastectomy. Scheduled on 04/10/22. Right breast US & right axilla US: 1. The biopsy-proven malignancy and associated clip is againdemonstrated at the 5:00 zone 2 position. This consists of a markedly irregular ill-defined hypoechoic mass which on today's exam measures approximately 4.7 x 2.7 x 4.5 cm. Clip is noted within the mass. Normal appearance of the right axilla. (BI-RADS: 6: Known biopsy proven malignancy) CXR: No acute cardiopulmonary disease 02/27/22: Bilateral breast MRI wwo contrast: 1. The right breast biopsy-proven malignancy is identified in the inferior central and inferior medial aspects consisting of a good: Irregular poorly marginated mass. Associated tissue marker is noted. This mass measures 4.5 x 2.9 x 3.0 cm. The mass does not appear to abut or invade the chest wall. 2. No MR evidence of malignancy in the left breast. (Bi-RADS: 6: Known biopsy proven malignancy) 03/04/22: Establish care with Dr. Daily of Plastics. Patient stated that they wish to proceed with: right mastectomy and immediate breast reconstruction with tissue family practice physician Seen by Genetic counselor, SIOMARA Scott- does not have any pathogenic variants (mutations) in any of the genes on this panel. 03/20/[address] Jason Giron to establish care 04/10/22: Right breast mastectomy. Pathology revealed invasive ductal carcinoma, grade 2, measuring4.2 cm. 1 lymph node with macrometastatic carcinoma. CP1yM2q. Oncotype 23. 04/22/22: Follow up with Dr. Povoski. No additional surgery recommended. 05/13/22: Follow up with Dr. Giron. Chemo not recommended due to Oncotype 23. 06/05/22: Follow up with Dr. Gomez. Recommends PMRT given positive lymph node. Patient desiring time to think about further treatment. Interval HIstory: 06/29/22: Undergoes exchange of right tissue family practice physician with a permanent implant and left breast reduction by Dr. Daily. 07/08/22: Follow up with plastic surgery. Found to be doing well. She has pain in her right shoulder which has been ongoing since her first surgery. It gets up to 3-4/10 for which she takes Tylenol once a day which helps. ROM is still somewhat limited bilaterally. She otherwise feels she is healing well from surgery. She denies any other complaints at this time. PHYSICAL EXAM: WEIGHTS: Wt Readings from Last 3 Encounters: 07/31/22 64.8 kg (142 lb 12.8 oz) 06/29/22 63.5 kg (140 lb 1.6 oz) 05/13/22 65 kg (143 lb 3.2 oz) VITAL SIGNS: BP 144/75 (BP Location: Right arm, BP Position: Sitting) Pulse 90 Temp 98 F (36.7 C) (Infrared) Wt 64.8 kg (142 lb 12.8 oz) SpO2 99% BMI 25.30 kg/m Smoking Status Never ECOG: ECOG 0 - Fully active, able to carry on all pre-disease performance without restriction CONSTITUTIONAL: This is a well developed, well-nourished female, NAD. NECK: Supple, with no thyromegaly, and non-tender. No cervical or SCL LAD CARDIAC: Regular rate and rhythm. Normal S1, S2. No murmurs, rubs or gallops. PULMONARY: Lungs are CTAB without w/r/r. BREAST: Performed by Dr. Gomez AXILLA: Performed by Dr. Gomez EXTREMITIES: Full ROM in all extremities, particularly b/l upper extremities. No c/c/e. IMAGING: Imaging reviewed as per HPI. LABS: CBC Lab Results Component Value Date WBC 4.76 04/01/2022 HGB 12.3 04/01/2022 HCT 37.3 04/01/2022 PLATELET 214 04/01/2022 MCV 97.4 04/01/2022 EDIF Lab Results Component Value Date RBCDISTRIBU 12.4 04/01/2022 GRNLOCYT 64.0 04/01/2022 LYMPHOCYT 21.8 04/01/2022 MONOCYTELEC 10.7 04/01/2022 EOSINOPHILS 2.3 04/01/2022 BASOPHILS 0.8 04/01/2022 LYMPHOCYTABS 1.04 (L) 04/01/2022 EOSINOPHLABS 0.11 04/01/2022 PLATELET 214 04/01/2022 MPV 11.6 04/01/2022 Pathologic Diagnosis A. [place] lymph node #1, right axilla, excision: 1 lymph node with macrometastatic carcinoma by H&E and AE1/3 B. [place] lymph node #2, right axilla, excision: 1 lymph node, negative for carcinoma by H&E and AE1/3 C. Non-sentinel lymph node #1, right axilla, excision: 1 lymph node, negative for carcinoma by H&E D. Skin, original skin entrances site, 4 o'clock axis from prior diagnostic right breast ultrasound-guided biopsy, excision: Benign skin E. 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, see synoptic report Invasive carcinoma is 3 mm from the closest margin (anterior-inferior) SYNOPTIC REPORT FOR INVASIVE BREAST CARCINOMA Specimen (P=partial, M=mastectomy): M Laterality (R=right, L=left): R Focality (U=unifocal, M=multifocal): U Tumor size (cm): 4.2 cm Histologic type: Ductal Histologic grade: 2 Tubule score (1-3): 3 Nuclear score (1-3): 2 Mitotic score (1-3): 1 Skin, nipple epidermis, skeletal muscle (I=involved, N=negative, NA=not applicable): N Lymphovascular invasion (P=present, N=not identified): Present Margins of main specimen (P=positive, N=negative): N Distance to closest margin of main specimen (mm): 3 mm Designation of closest margin of main specimen: Anterior-inferior Designation of other margins of main specimen </=1 mm: N Re-resection margin status (P=positive, N=negative, NA=not applicable): NA DCIS (P=present, N=not identified): N Regional lymph nodes: Total number of lymph nodes: 3 Number of sentinel lymph nodes: 2 Number with macrometastases: 1 Number with micrometastases: 0 Number with isolated tumor cells: 0 Size of largest conrado metastasis (mm): 3 mm Size of extranodal extension (mm) (N=not identified): N Estrogen receptor: Positive (95%, strong intensity) Progesterone receptor: Positive (95%, strong intensity) HER2 IHC: Equivocal (Score 2+) HER2 FISH: Negative (ratio: 1.8, avg. HER2/cell: 3.73) per outside report Specimen in which ER/TX/HER2 performed: Previous outside biopsy [id number] pTNM: pT2 pN1a Additional findings: Biopsy site changes, seborrheic keratosis Comments: The metastatic deposit in Part A is not visible on the frozen section slide, and best visualized on the cytokeratin immunostained level. Immunohistochemical stains (on block E7) support thediagnosis. E-cadherin and p120 are positive, confirming ductal phenotype. Foci of lymphovascular invasion are positive for CD31 and ERG, and are negative for p40. ASSESSMENT PLAN: In summary, Malia Cook is a 61 y.o. postmenopausal woman with pathologic prognostic stage IB (pT2 pN1a) Grade 2 ER+(95%)/TX+(95%)/Her-2 negative invasive ductal cancer of the RIGHT breast s/p mastectomy and SLNB. Pathology consistent with Grade 2, 4.2 cm invasive ductal cancerof the RIGHT breast, negative margins, 1/3 LN positive, Oncotype 23. She presents today for consideration of radiation therapy. 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 We discussed that we are recommending 16 daily fractions of radiation to her right chestwall and draining lymph node areas. We discussed the overall process of radiation and associated acuteand late toxicities. We again discussed MA-39 in patients with low risk breast cancer and 1-3 positive lymph nodes. She did not hear from our trial coordinators previously so we will work on this today. We will move forward with CT simulation today as patient her is hesitant for her to jointhe trial. We reviewed with patient the acute side effects of treatment and the risk potential for late complications. She was made aware that the acute side effects she may experience include, but are not limited to, skin erythema, tanning, breast discomfort, peeling, breast swelling, and fatigue. The temporary nature of these symptoms was explained, the supportive therapies that are available should they occur reviewed and the average timeline for their resolution was given. We did discuss that there marck risk for permanent complications from breast irradiation. These include but are not limited to a,10-15% risk of permanent skin color change on the treated breast that is usually tanning but can behypopigmentation, a 10-15 % risk of increased firmness of the breast that does not generally alter the breast appearance significantly and a 2-3% risk of severe radiation fibrosis that can impact thebreast appearance. Finally there is a remote < 0.1% risk for a secondary cancer. Malia Cook appeared to have a good understanding of all that was discussed and her questions appeared to be answered to her satisfaction. Patient seen and plan of care formulated with Dr. Gomez, attending physician. Saw Wheatley MD PGY-5, Radiation Oncology Pager: [phone] I saw and independently examined this patient today. I discussed my findings and the therapeutic plan with the Resident. I agree with the Resident's history, physical examination, and medical decisions as outlined. Malia Cook is a 61 y.o. postmenopausal woman with pathologic prognostic stage IB (pT2 pN1a) Grade 2 ER+(95%)/TX+(95%)/Her-2 negative invasive ductal cancer of the RIGHT breast s/p mastectomy andSLNB. Pathology consistent with Grade 2, 4.2 cm invasive ductal cancer of the RIGHT breast, negative margins, 1/3 LN positive, Oncotype 23. She presents today for consideration of radiation therapy. We discussed that we are recommending regional conrado radiation to the right chestwall and regional lymph nodes. She would like to finished by her vacation on 09/14/21, therefore we are recommending hypofractionated radiation in 16 daily treatments. We discussed the overall process of radiation and associated acute and late toxicities. She understands that she may be at an increased risk of implantcontracture with hypofractionated radiation compared to conventional radiation. She was in agreement with the plan and signed consent. She will undergo CT simulation in our Department. Deepti Gomez M.D., Ph.D. Cd Technician in Radiation Oncology Pager: [phone] * Eder Orosco RN - 07/31/2022 12:30 PM EST Breast Cancer (Follow up and CT simulation for radiation therapy for RIGHT sided breast cancer.) Skin care, fatigue, OTVs, V-sim and CT planning reviewed with patient. Does patient have implantable devices? No Handouts: Cancer Therapy: Managing Side Effects - Radiation Therapy Skin Care, Cancer Therapy: Managing Side Effects - Fatigue (Katy Cid) and Sun Safety for Cancer Survivors (Katy Cid) Pre-treatment photo's taken and added to [employer]ria. Denies further questions or concerns at this time. Patient advised to call our office with questions or concerns. Report given to Dr. Dioni Cook was offered and declined a Medical Civil Service Worker for this exam/procedure/test 07/31/2022. Eder Orosco RN documented in this [facility]11-09-2022 History of Present illness Narrative* Bret Padilla PA-C - 07/08/2022 9:45 AM EST Patient was evaluated by myself and Dr. Daily. Subjective: S/p right mastectomy (Povoski) 04/10/2022 S/p right breast reconstruction with family practice physician 04/10/2022 S/p right breast implant exchange, left breast reduction, excision of right breast standing cone deformity, 06/29/2022 Postoperative Evaluation HPI: The patient presents for previously scheduled follow up. She is doing well and reports minimal paincontrolled by OTC medications. She feels her breasts are asymmetric with the left being larger thanthe right. ROS: Denies redness, fevers, chills, drainage, swelling, pain. Objective: Physical Exam BP 130/71 (BP Location: Left arm, BP Position: Sitting) Pulse 90 Resp 16 SpO2 100% Smoking Status Never General appearance:alert, cooperative, appears stated age Right Breast: incision c/d/i with dermabond. No erythema or open areas. Implant is soft and in goodposition. Left Breast: incisions c/d/i. No open areas or drainage. NAC viable. Larger compared to right breast. Assessment/Plan: - Activity restrictions reviewed. No lifting/pushing/pulling >5lbs for 6 weeks or arms above 90 degrees for 4 wks postop. No formal exercise or popped corn oven attendant. - We discussed that asymmetries are likely due to swelling post-operatively. These will settle over8-12 weeks. We can discuss if revisions are needed at the next office visit - RTC 6 weeks - Please call our clinic with any questions or concerns before your next visit. [facility] Instructions* Patient Instructions* Tyrell Daily MD - 07/08/2022 9:45 AM EST Follow up with Dr. Daily in 6 wks documented in this [facility]10-19-[facility] History of Present illness Narrative* Kathe Liu RN - 06/17/2022 3:00 PM EDT Instructions given to patient concerning pre and post op care. Written instructions given include: - Pre Operative Instruction Sheet - Post Operative Instruction Sheet - Getting Your Skin Ready for Surgery - Herbal Use Before Surgery - Drain System Instruction Sheet - Tube-Evac Device Instruction Sheet Nando was given an XL surgical bra. NO HEATING PAD USE Patient instructed to have nothing by mouth beginning at midnight before her surgery. Chlorhexidinesoap solution given with instructions for patient to shower surgical area once daily for 5 days prior to surgery and again the morning of surgery. Drain demonstration provided with opportunity for return demonstration. Measuring cups given with instructions for measuring and recording drainage output. Patient verbalized understanding and all questions were answered. * Caryn Noe PA-C - 06/17/2022 3:00 PM EDT Plastic and Reconstructive Surgery H&P HPI: Ms. Cook is a 61 y.o. female with a history of right breast cancer. S/p right mastectomy (Povoski) 04/10/2022 S/p right breast reconstruction with family practice physician 04/10/2022 She presents preoperatively for planned: Right breast implant exchange, left breast reduction, excision of right breast standing cone deformity Scheduled for: 06/29/2022 Since I last saw the patient, the following changes in health status/surgical plan are noted: No recent changes to health status Notes: Currently filled to 380 BD: 12 Review of Systems: No F/C. No CP/SOB. Past Medical History: Diagnosis Date Asthma Hypothyroidism Malignant neoplasm of lower-inner quadrant of right breast of female, estrogen receptor positive 01/20/2022 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, ER+/TX+/HER2- ;ONCOTYPE 23 Past Surgical History: Procedure Laterality Date MASTECTOMY COMPLETE Right 04/10/2022 Laterality: Right; Surgeon: Stuart Smallwood MD; Location: [facility] OR BX LYMPH NODE AXILLARY DEEP Right 04/10/2022 Laterality: Right; Surgeon: Stuart Smallwood MD; Location: [facility] OR INJECTION RADIOACTIVE TRACER FOR SENTINEL NODE IDENTIFICATION Right 04/10/2022 Laterality: Right; Surgeon: Stuart Smallwood MD; Location: [facility] OR 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 Prn esomeprazole [address] capsule Take 20 mg by mouth every morning before breakfast. furOSEmide 20 MG tablet Take 20 mg by mouth daily. MAGNESIUM OXIDE PO Take by mouth. meloxicam 15 MG tablet as needed. Synthroid 50 MCG tablet acetaminophen 325 MG tablet Take 3 tablets by mouth every 8 hours for 5 days. 45 tablet 0 Breztri Aerosphere 160-9-4.8 MCG/ACT Aerosol INHALE 2 PUFFS BY MOUTH TWICE DAILY (Patient not taking: Reported on 06/17/2022) cyclobenzaprine 10 MG tablet Take 1 tablet by mouth 3 times daily as needed for Muscle spasms for up to 5 days. 15 tablet 1 ibuprofen 600 MG tablet Take 1 tablet by mouth every 8 hours for 5 days. 15 tablet 0 oxyCODONE 5 MG tablet Take 1 tablet by mouth every 6 hours as needed for Moderate Pain for up to 7 days. 30 tablet 0 No facility-administered medications prior to visit. Social History Tobacco Use Smoking status: Never Smokeless tobacco: Never Vaping Use Vaping Use: Never used Substance Use Topics Alcohol use: Yes Alcohol/week: 1.0 standard drink Types: 1 Standard drinks or equivalent per week Drug use: Never Family History Problem Relation Age of Onset Alzheimer's Mother Diabetes Father Other - Specify Father pacemaker Colorectal Cancer Sister 48 Diabetes Sister Other - Specify Brother COD undetermined, lung problems, d. 69 Other - Specify Brother COD undetermined, lung problems, d. 70 Diabetes Brother Thyroid Cancer Maternal Grandmother dx. young, also had goiter removed, d. 82 Heart Disease - Other Maternal Grandfather d. <60 Other - Specify Son non-malignant spot removed from forehead Ovarian Cancer Maternal Aunt d. 85 Cancer- Other Maternal Aunt CaSU, d. 50s Other - Specify Maternal Aunt stomach surgery and many medical problems Heart Disease - Other Maternal Uncle x3 Cancer- Other Maternal Cousin CaSU Leukemia Maternal Cousin Breast Cancer Maternal Cousin 40 Uterine Cancer Neg Hx Negative for problems with anesthesia, surgery, bleeding, or wound healing problems. Physical Examination blood pressure is 140/86 and her pulse is 81. Her respiration is 16 and oxygen saturation is 94%. Estimated body mass index is 24.97 kg/m as calculated from the following: Height as of 04/22/22: 1.613 m (5' 3.5 ). Weight as of 05/13/22: 65 kg (143 lb 3.2 oz). General: NAD, well appearing HEENT: NC/AT, CN 2-12 grossly intact, V1-V3 grossly intact, no LAD/lesions Chest: RRR, CTAB Abdomen: Soft/NT/ND, no palpable masses/hernias, no organomegaly Extremities: Neurovascularly intact 1 point each: [] Age 41-60 [] minor surgery planned [] history of prior major surgery (<1 month) [] varicose veins [] history of IBD [] current swollen legs [] obesity (BMI>25) [] acute RI [] CHF <1 month [] sepsis (<1 month) [] Lung disease including PNA (<1 month) [] Abnormal pulmonary fxn (COPD) [] Currently on bedrest [] OCP or HRT [] or (<1 month) [] Hx unexplained stillborn, spontaneous (>3), premature with toxemia or growth restricted 2 points each: [x] Age 60-74 [] Arthroscopic surgery [x] Malignancy hx [x] Major surgery planned (>45 min) [] Laparoscopic surgery (>45 min) [] Patient confined to bed (>72 hrs) []Immobilizing plaster cast [] Central Venous Access 3 points each: [] Age >75 [] Hx DVT/PE [] Family hx of thrombosis [] Factor V Leiden [] Prothrombin [id number] [] Elevated serum homocysteine [] Positive Lupus anticoagulant [] Elevated anticardiolipin antibodies [] HIT [] Other thrombophilia 5 points each: [] Elective major lower arthroplasty [] Hip, pelvis, or leg fx [] stroke (<1 month) [] Multiple Trauma (<1 month) [] Acute spinal cord injury (<1 month) Total Score: Strongly consider chemoprophylaxis if 7 or greater. Agustin 6 Assessment/Plan I reviewed the planned procedure(s) with the patient as listed above. I reviewed the incisions/scars, duration, recovery time, postoperative restrictions, and follow-up.I discussed hospitalization and drains. Risks that were discussed include general surgical (bleeding, infection, hematoma, seroma, wound breakdown, need for further surgery, pain, numbness, weakness, asymmetry, cosmetic deformity, injury to structures, capsular contracture, implant failure, asymmetry), general medical (heart attack, pneum onia, DVT/PE, ), and implant-specific (implants are not lifetime devices and will rupture in the long-term, capsular contracture, potential need for implant removal, breast implant associated anaplastic large cell lymphoma (risk approximately 1 in 30,000), systemic symptoms (joint pain, fatigue, memory loss), need for follow-up evaluation including in some cases imaging (which may or may notbe covered by insurance) even after breast reconstruction has been completed, rippling, and that implants contain chemicals and heavy metals.) We discussed that breast implant-associated anaplastic large cell lymphoma (EULALIA- ALCL) is a rare andtreatable type of T-cell lymphoma that can develop around breast implants. EULALIA-ALCL is not a cancerof the breast tissue itself. According to the most recent data available, the risk of association between breast implants and ALCL is extremely low. The current lifetime risk of EULALIA-ALCL in the [place] is estimated to be 1:30,000 women with textured implants based upon current confirmed cases. We discussed that if the patient has any further questions on this topic, that they should not hesitate to inquire further with Dr. Jack. All of the patient's questions/concerns were addressed. The patient understands all of these things, wishes to proceed, and signed the consent form. Implant Ordered. documented in this [facility]10-19-2022 Instructions* Patient Instructions* Caryn Noe PA-C - 06/17/2022 3:00 PM EDT Images from the original note were not included. *Please call the office at [phone] if any cold, flu like or other symptoms of infection are present the week prior to surgery. It may be necessary that you follow up with your primary care provider for further assessment. The presence of infection or illness may delay surgery. Instructions for Care PRIOR to Your Upcoming Surgery: - Starting five days before surgery, shower using chlorhexidine (CHG) soap one time each day for four days. Then, shower the night before your surgery and again the morning of your surgery using CHG soap. You will shower with CHG soap a total of 6 times prior to surgery. See Getting Your Skin Ready for Surgery for instructions for use of CHG soap. - Do NOT use any makeup, lotion, deodorant, or perfume the morning of surgery. - Do NOT shave near surgical site(s) starting 1 week prior to surgery. - Do NOT eat or drink ANYTHING after midnight or the day surgery (including gum, candy, ice, antacid tablets, etc.). - You may brush your teeth and rinse your mouth prior to surgery, but do NOT swallow anything. - Do NOT smoke or use ANY nicotine containing products (chew, gum, patch, snuff, vape, etc.) withinthe 4 weeks prior to surgery and the 6 weeks following surgery. Smoking and chewing tobacco can delay wound healing and result in increased risk of infection following surgery. - HOLD NSAIDS (Advil, Aleve, Aspirin, Celebrex, Diclofenac, Ibuprofen, Meloxicam, Motrin, Naproxen,etc.) for 7 days prior to surgery. You CAN take Tylenol (acetaminophen). - HOLD all herbal medications (fish oil, glucosamine, garlic, etc.) and Multi- Vitamins and Vitamin E 14 days prior to surgery. -Talk to your doctor about stopping any medicines you take to thin your blood or prevent clots. These medications may need to be continued or the amount adjusted before surgery. If you have a stent, do not stop taking your medicines to prevent clots without first talking to your doctor. If you takeaspirin for arthritis pain, ask your doctor for a different pain medicine around the time of your procedure. What you need to bring to the hospital: 1. A photo ID 2. Insurance Card 3. Co-pay for insurance if applicable 4. A list of ALL MEDICATIONS you are currently taking including the dose and times that you take them. You will be turning this list over to your nurse. 5. Crutches/walker if applicable. 6. CPAP machine if applicable. 7. Loose fitting clothing and preferably a top that closes in the front to wear home following surgery. What to leave at home: 1. ALL valuables, cell phone, wallet, purse 2. ALL jewelry including watches, wedding bands and ANY FORM of piercing. 3. DO NOT wear lotion, makeup, nail armenian, contact lens, or perfume/cologne. 4. DO NOT bring actual pill bottles or home medications unless instructed to do so. * If you will be going home the day of surgery, you MAY NOT use commercial transportation, drive yourself home, or be home alone for 24 hours after your surgical procedure. Post Op Care/Restrictions for Your Upcoming Surgery - Instructions will also be provided at time of discharge and restrictions may change depending on the procedure performed. IMPLANT BASED 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/OTHER BREAST SURGERY: - Wash hands prior to caring for incisions, wounds, and drains. - You will receive instruction regarding incision line care and dressing changes following surgery. - Do NOT shower, sponge bathe only. You may cleanse incisions with mild soap and water starting 48 hours after surgery. - Wear surgical bra at all times (other than bathing) for 3 weeks. After 3 weeks you may switch to a soft cotton sports bra with a band that does not go over any incisions and preferably with a zippered front. Do NOT wear a bra with underwire for 3 months. - Do not raise your elbow(s) above shoulder level for 4 weeks. - No lifting/pushing/pulling more than 5 pounds for 6 weeks. - No repetitive arm movements, including all popped corn oven attendant, for 6 weeks. - No bouncing activities for 6 weeks. - No formal exercise for 6 weeks. General light activity such as walking is encouraged following surgery. - Do NOT apply heat or ice surgical site(s). Be cautious when using a heating pad for other areas of the body to avoid risk of burn. - Do NOT submerge incisions/drain sites in water until 8 weeks following surgery and all incisions have completely healed. - No swimming in chlorinated pool 2 months after surgery - No swimming in natural body of water (ceron/ocean/other) 3 months after any surgery - Anticipate 4 weeks of no travel by car (greater than 1 hour) or air. If transportation to appointment exceeds 1 hour, it is recommended that you stop once every hour for a 5 minute walk to prevent the development of blood clots. - Do NOT drive while taking narcotic pain medication. - If drains present: * Strip and empty each drain twice daily. Record each drain's output in log provided. Please recorddrain output in milliliters (mL). * Bring drain output log to every post-op appointment. * Measuring cups and drain output log have been provided for measuring and recording drain output. * Do NOT drive while drains in place. Call the Plastics and Reconstructive Surgery office at [phone] promptly with any of the following concerns: - Fever of 100.4 degrees Fahrenheit (38 degrees Celsius) or higher. - Pain that is not relieved by your pain medication. - Redness around your incision site. - Increasing swelling or bruising to surgical site. - An increased amount of drainage or drainage that has changed, is cloudy or milky, or has a foul odor. Please call at any time with any other questions or concerns. IMPORTANT INFORMATION REGARDING PRESCRIBED PAIN MEDICATIONS Store your prescribed pain medication in a locked cabinet or in an area only accessible to you. When you no longer need your prescribed pain medication, dispose of it immediately by one of the safe methods listed below: TAKE BACK PROGRAM: A drug take-back program is the best method to dispose of un- needed opioids safely. You can locate the take-back program closest to you at https://takebackday.meir.gov under the COLLECTION SITE NURSERY HELPER tab. Never dispose of un-needed medications down the sink or toilet. Instead, crush the medication and mix with damp coffee grounds or cat litter, placed in a sealed plastic freezer bag and dispose of in your regular trash. Preventing Deep Vein Thrombosis Healthcare providers use the term venous thromboembolism (VTE) to describe two conditions: deep vein thrombosis (DVT) and pulmonary embolism (PE). They use the term VTE because the two conditions arevery closely related. And because their prevention and treatment are closely related. DVT is a blood clot or thrombus in a deep vein. Most of these clots develop in the leg or thigh. But they may form in a vein in the arm, or other part of the body. Part of the blood clot may separate from the vein. This is called an embolus. It may travel to the lungs and form a pulmonary embolus. This can cut off the flow of blood to a portion of or to the entire lung. A blood clot in the lungs is a medical emergency and may cause . Over time, blood clots can also damage veins. They must be treated right away to prevent problems. Risk factors Anyone can develop a blood clot. But the following things make a blood clot more likely to happen: Being inactive for a long period, such as when you re in the hospital, or traveling by plane or car Injury to a vein from an accident, a broken bone, or surgery Having blood clots in the past or a family history of blood clots Blood clotting disorder Recent surgery Cancer and certain cancer treatments Smoking Other things can also put you at higher risk for a blood clot. They include: Age over 60 years Taking control pills or hormone replacement Having other vein problems, such as varicose veins Being overweight Having a pacemaker or a central venous catheter. They increase the chance of a blood clot forming in an arm. Injection drug use. This also increases the chance of a blood clot forming in an arm. How to prevent DVT Preventing a blood clot means improving blood flow back to your heart. To help prevent a blood clot: Talk with your healthcare provider about a program of regular exercise. If your legs feel swollen or heavy, take a break and sit comfortably or lie down with your feet up. Keep a healthy weight. Quit smoking, if you smoke. Don't sit, stand, or lie down for long periods without moving your legs and feet: When traveling by car, stop often to get out and move around. On long airplane, train, or bus rides, get up and move around when possible. If you can t get up, wiggle your toes and tighten your calves to keep your blood moving, as pictured below. If you need to have surgery, talk with your healthcare provider about a plan to prevent blood clots. If you are in the hospital, your risk for blood clots increases. Your healthcare provider may prescribe blood-thinner medicine (anticoagulant) to help prevent blood clots. Or your healthcare providermay prescribe a sequential compression device (SCD) or intermittent pneumatic compression (IPC). The device has sleeves that fit around your legs. It puts gentle pressure on your legs to help with blood flow and prevent blood clots. Remove the sleeves so that you do not trip or fall when you are walking, like when you use the bathroom or shower. If you need help removing the sleeves, ask the nurse or aid. You may also want to try the following: Call 911 If you have symptoms of a blood clot in your lungs, call 911. The symptoms are: Chest pain Trouble breathing Fast heartbeat Coughing (may cough up blood) Sweating Fainting When to call your healthcare provider If you have symptoms of a blood clot, call your healthcare provider. The symptoms are: Pain Swelling Redness or discoloration in a leg, arm, or other area Date Last Reviewed: 12/29/201519996175-9461 [employer]. [address] [place] [address], [place] [address]. All rights reserved. This information is not intended as a substitute for professional medical care. Always follow yourhealthcare professional's instructions. Patient Medication Instructions: Here is a list of your current medications we have on file: Current Outpatient Medications Medication Pre-Surgery Instructions Albuterol Sulfate 108 (90 Base) MCG/ACT Aerosol Powder, breath activated Continue to take as prescribed esomeprazole [address] capsule Take as prescribed with a small sip of water furOSEmide 20 MG tablet Hold the morning of surgery MAGNESIUM OXIDE PO Hold the morning of surgery meloxicam 15 MG tablet Hold the morning of surgery Synthroid 50 MCG tablet Take as prescribed with small sip of water acetaminophen 325 MG tablet Continue to take as prescribed ibuprofen 600 MG tablet Hold for 7 days prior to surgery - Only take the indicated medications on the morning of surgery with a sip of water. Do not take any of your other medications on the morning of surgery. -If you use inhalers, use all your inhalers on the morning of surgery. - HOLD NSAIDS (Advil, Aleve, Aspirin, Celebrex, Diclofenac, Ibuprofen, Meloxicam, Motrin, Naproxen,etc.) for 7 days prior to surgery. You CAN take Tylenol (acetaminophen). - HOLD all herbal medications (fish oil, glucosamine, garlic, etc.) and Multi- Vitamins and Vitamin E 14 days prior to surgery. -Talk to your doctor about stopping any medicines you take to thin your blood or prevent clots. These medications may need to be continued or the amount adjusted before surgery. If you have a stent, do not stop taking your medicines to prevent clots without first talking to your doctor. If you takeaspirin for arthritis pain, ask your doctor for a different pain medicine around the time of your procedure. [facility] History of Present illness Narrative* Tyrell Daily MD - 05/20/2022 9:00 AM EDT Reason for Visit H/o right breast cancer S/p right mastectomy ([place]), 04/10/2022 S/p right breast reconstruction with family practice physician, 04/10/2022 Postoperative evaluation Subjective The patient underwent a fill today and feels that she has reached her desired volume. Objective Right breast: incision intact, no masses/collections, medial standing cone deformity Left breast: larger and more ptotic Assessment/Plan I discussed pertinent reconstructive surgical procedure(s) with the patient: - Right breast implant exchange - Right medial breast standing cone deformity excision - Left breast reduction I discussed that reconstructive surgery would be medically necessary on the left because of significant asymmetry between aniak and reconstructed breast, and on the right because of postmastectomy standing cone deformity. For each procedure, I reviewed the rationale, objectives, incisions/scars, duration, recovery time,postoperative restrictions, and follow-up. When applicable, I discussed hospitalization, dressing changes, drains, and donor site morbidity. Risks that were discussed include surgical (bleeding, infection, hematoma, seroma, wound breakdown,need for further surgery, pain, numbness, weakness, asymmetry, cosmetic deformity, injury to structures) and medical (heart attack, pneumonia, DVT/PE, ). When applicable, I discussed partial/complete graft or flap loss. I also discussed additional risks including: implant rupture, Breast Implant Associated Anaplastic Large Cell Lymphoma (EULALIA-ALCL), need for future surgery for implant rupture or complications I also discussed additional issues including: left breast will likely always be lower than right breast After discussion, the patient stated that they wish to proceed with surgery. We will schedule/coordinate surgery and the patient will return at their preoperative appointment. The patient is tentatively scheduled for surgery 08/06/2022. Her next left mammogram and evaluation by Dr. Smallwood is scheduled for 02/02/2023, we will explore rescheduling these to before surgery. A total of 15 minutes of grgo-vc-neea time were spent in this encounter, of which >50% was spentin counseling and/or coordination of care. * aCndi Luther RN - 05/20/2022 9:00 AM EDT Patient is doing well, S/p Right breast reconstruction with tissue expanders on 04/10/22. Per order for serial tissue expansions, Right breast tissue family practice physician ports accessed per protocol. 100ml salineinstilled into Right tissue expanders for a total volume of 380/350 ml. Good capillary refill notedthroughout the expansion. Expansion tolerated well. Band-aid applied to injection sites, no bleeding noted. [facility] Instructions* Patient Instructions* Tyrell Daily MD - 05/20/2022 9:00 AM EDT - Schedule surgery (left breast reduction, right breast implant exchange) - Return at preop documented [facility] this [facility]OS[facility] History of Present illness Narrative* Dayami Boggs RN - 05/13/2022 8:00 AM EDT Patient offered a medical hot mill tin roller for sensitive exam. Pt declined * Barbara Santiago APRN-EDEN - 05/13/2022 8:00 AM EDT Nando Cook is a 61 y.o. female who presents to the [facility] for Chief Complaint Patient presents with Follow-up Follow-up visit and Oncotype review Referring Provider: Marlene Olivas APR* Breast Surgeon: Dr. Smallwood Plastic Surgeon: Dr. Daily Radiation Oncologist: Dr. Gomez PCP: Dr. 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 Today, Nando reports the following: -Very little post-op pain. Will get another TE fill today. Healing well. -Energy is improving. -Appetite/fluid intake appropriate. -Chronic constipation. Manages with magnesium and occasionally Metamucil. -Nando does report history of hot flashes and vaginal dryness. She previously used estradiol cream. She has tried Replens in the past and did not find it helpful. -Remaining ROS unremarkable. Oncologic History: Briefly, Malia Cook's oncologic history is summarized by the followin01/15/22 Mammo/US: RIGHT BREAST: Macro lobulated spiculated opacity within the posterior lower inner quadrant corresponding to patient's palpable lump. Ultrasound evaluation demonstrates a 4.5 x 1.8 x 1.5 cm lobular, spiculated, heterogeneous mass at the 5 o'clock position, 3.2 cm from the nipple, concerning for malignancy 01/20/22 Right Breast Bx 5:00 position (1.9cm) Grade 1, Invasive Carcinoma with mixed ductal and lobular features ER >90%, TX 80-90%, HER 2 IHC: 2+, FISH ratio: 1.8, Average HER 2 signal/cell: 3.73 02/24/[address] Smallwood, MRI ordered 02/27/22 MRI Breast: The right breast biopsy-proven malignancy is identified in the inferior central and inferior medial aspects measuring 4.5 x 2.9 x 3.0 cm.There is no axillary lymph adenopathy 03/04/22 Genetic Testing: negative 03/20/22 Dr Giron to establish care 04/10/22: Right breast mastectomy. Pathology revealed invasive ductal carcinoma, grade 2, measuring4.2 cm. 1 lymph node with macrometastatic carcinoma. [id number]. Pertinent Physical Exam: Vitals: BP 129/80 (BP Location: Left arm, BP Position: Sitting) Pulse 81 Temp 97.9 F (36.6 C) (Oral) Resp 16 Wt 65 kg (143 lb 3.2 oz) SpO2 98% BMI 24.97 kg/m Smoking Status Never Smoker Patient's Current Performance Status 0 General/Constitutional: Well developed, well nourished female, who looks their stated age. No acutedistress. HEENT: Head: Normocephalic and atraumatic. Eyes: Pupils are equal, round, and reactive to light andaccomodation. Extraocular movements are intact. Sclerae are anicteric. Neck: Supple, non-tender, with no lymphadenopathy. Cardiac: Regular rate and rhythm. Normal S1, S2. No murmurs, rubs or gallops. Pulmonary/Chest: Lungs are clear to auscultation bilaterally. No wheezes, rhonchi or rales noted. Abdominal: Abdomen with normoactive bowel sounds in all four quadrants. Soft, non-tender, non-distended. No organomegaly. Extremities: Normal range of motion in all four extremities, with normal strength equally and symmetrically. No cyanosis or clubbing or peripheral edema. Neurological: Conscious, alert and oriented. Cranial nerves II through XII are intact grossly and symmetrically. No focal neurologic deficit. Skin: Skin is warm and dry. She is not diaphoretic. Psychiatric: Appropriate mood and affect. Back: No CVA or point vertebral tenderness. Lymph: No supraclavicular or axillary adenopathy. Right Breast: S/p mastectomy with well healing incision with TE in place. Left Breast: normal without suspicious masses, skin or nipple changes or axillary nodes Chest Wall: No abnormalities noted. Pertinent Labs, Imaging and Pathology Imaging Data: No new imaging to review. Other Data: Surgical Pathology Report, [id number], 04/10/2022 Pathologic Diagnosis A. [place] lymph node #1, right axilla, excision: 1 lymph node with macrometastatic carcinoma by H&E and AE1/3 B. [place] lymph node #2, right axilla, excision: 1 lymph node, negative for carcinoma by H&E and AE1/3 C. Non-sentinel lymph node #1, right axilla, excision: 1 lymph node, negative for carcinoma by H&E D. Skin, original skin entrances site, 4 o'clock axis from prior diagnostic right breast ultrasound-guided biopsy, excision: Benign skin E. 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, see synoptic report Invasive carcinoma is 3 mm from the closest margin (anterior-inferior) SYNOPTIC REPORT FOR INVASIVE BREAST CARCINOMA Specimen (P=partial, M=mastectomy): M Laterality (R=right, L=left): R Focality (U=unifocal, M=multifocal): U Tumor size (cm): 4.2 cm Histologic type: Ductal Histologic grade: 2 Tubule score (1-3): 3 Nuclear score (1-3): 2 Mitotic score (1-3): 1 Skin, nipple epidermis, skeletal muscle (I=involved, N=negative, NA=not applicable): N Lymphovascular invasion (P=present, N=not identified): Present Margins of main specimen (P=positive, N=negative): N Distance to closest margin of main specimen (mm): 3 mm Designation of closest margin of main specimen: Anterior-inferior Designation of other margins of main specimen </=1 mm: N Re-resection margin status (P=positive, N=negative, NA=not applicable): NA DCIS (P=present, N=not identified): N Regional lymph nodes: Total number of lymph nodes: 3 Number of sentinel lymph nodes: 2 Number with macrometastases: 1 Number with micrometastases: 0 Number with isolated tumor cells: 0 Size of largest conrado metastasis (mm): 3 mm Size of extranodal extension (mm) (N=not identified): N Estrogen receptor: Positive (95%, strong intensity) Progesterone receptor: Positive (95%, strong intensity) HER2 IHC: Equivocal (Score 2+) HER2 FISH: Negative (ratio: 1.8, avg. HER2/cell: 3.73) per outside report Specimen in which ER/TX/HER2 performed: Previous outside biopsy [id number] pTNM: pT2 pN1a Additional findings: Biopsy site changes, seborrheic keratosis Comments: The metastatic deposit in Part A is not visible on the frozen section slide, and best visualized on the cytokeratin immunostained level. Immunohistochemical stains (on block E7) support thediagnosis. E-cadherin and p120 are positive, confirming ductal phenotype. Foci of lymphovascular invasion are positive for CD31 and ERG, and are negative for p40. Labs: WBC Count Date Value Ref Range Status 04/01/2022 4.76 3.99 - 11.19 K/uL Final Hemoglobin Date Value Ref Range Status 04/01/2022 12.3 11.4 - 15.2 g/dL Final Hematocrit Date Value Ref Range Status 04/01/2022 37.3 34.9 - 44.3 % Final Platelet Count Date Value Ref Range Status 04/01/2022 214 150 - 393 K/uL Final Mean Cell Volume Date Value Ref Range Status 04/01/2022 97.4 79.6 - 97.7 fL Final ALT Date Value Ref Range Status 04/01/2022 23 9 - 48 U/L Final AST Date Value Ref Range Status 04/01/2022 22 10 - 39 U/L Final Albumin Date Value Ref Range Status 04/01/2022 4.7 3.5 - 5.0 g/dL Final Bilirubin Direct Date Value Ref Range Status 02/24/2022 0.1 <0.3 mg/dL Final Bilirubin Total Date Value Ref Range Status 04/01/2022 0.3 <1.5 mg/dL Final BUN Date Value Ref Range Status 04/01/2022 14 7 - 25 mg/dL Final Creatinine Date Value Ref Range Status 04/01/2022 0.82 0.50 - 1.20 mg/dL Final Total Protein Date Value Ref Range Status 04/01/2022 7.2 6.4 - 8.3 g/dL Final Glucose Date Value Ref Range Status 04/01/2022 94 70 - 99 mg/dL Final Potassium Date Value Ref Range Status 04/01/2022 3.8 3.5 - 5.0 mmol/L Final Chloride Date Value Ref Range Status 04/01/2022 103 98 - 108 mmol/L Final Impression and Recommendations: Impression: Malia Cook is a postmenopausal female diagnosed in December 2021 with at least stage IBstrongly hormone positive, Her-2 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 She is here today for follow up. Cancer Staging Malignant neoplasm of lower-inner quadrant of right breast of female, estrogen receptor positive Staging form: Breast, AJCC 8th Edition - Clinical stage from 01/20/2022: Stage IB (cT2, cN0, cM0, G1, ER+, TX+, HER2-) - Pathologic: pT2, pN1a(sn), cM0, ER+, TX+, HER2- Recommendations: 1. 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 Oncotype Dx 23. -RxPONDER (SWOG S1007) demonstrated no difference in 5 year invasive disease- free survival benefit between endocrine therapy plus chemotherapy vs endocrine therapy alone (91.9% vs 91.6%) for postmenopausal women with HR-positive, HER2- negative breast cancer and Oncotype Dx score less than or equal to 25. -Given this we discussed recommendation for adjuvant endocrine therapy. Endocrine therapy would be recommended for a minimum of 5 years and given postmenopausal status, aromatase inhibitor is standard of care. We reviewed common and serious adverse effects of aromatase inhibitors were reviewed inclu marilynn moratayagias, joint stiffness, vasomotor symptoms, vaginal dryness, dyspareunia, and increased bone thinning. -Mammogram and follow-up with Dr. Smallwood scheduled 02/02/23. -Saw Dr. Gomez for consultation in February. Will reach out regarding follow-up. -Following with Dr. Daily for tissue family practice physician fills. 2. Supportive Care -Reviewed patient education on managing hot flashes and vaginal dryness. Consider referral to [facility]. -Referral to psychology 3. Bone Health A. No previous DEXA screening performed. Will plan to obtain baseline DEXA prior to initiation of aromatase inhibitor (AI) therapy. Order placed today. 4. Fertility Preservation: Postmenopausal and completed desired child bearing. Fertility preservation and referral to endocrinology were NOT discussed. 5. Healthy Lifestyle A. Reviewed importance of healthful lifestyle choices including maintaining healthy weight and continuing active aerobic exercise as tolerate. Discussed goal for balanced diet with adequate intake offruits and vegetables. Also reviewed goal of 150 minutes of aerobic exercise per week. 6. Survivorship: This patient's Survivorship visit will be completed within 6 months of completing chemo or within 6 months of starting endocrine therapy. Referral placed today. RTC 3 months to see MD for evaluation and toxicity check. All of the patient's questions were addressed. They were given our office contact information to reach us with further questions. Barbara Santiago APRN-EDEN I have seen and examined this patient independently of Barbara Santiago APRN. I reviewed Nando's pathology and Oncotype in detail. She has a [id number](sn) hormone positive, HER-2 negative invasive ductal carcinoma. Given that her Oncotype score was 23 and she had 1 sentinel lymph node involved, she meets criteria for RxPONDER. As she is postmenopausal, there is not expected to be invasive disease free survival benefit to chemotherapy and the risks are anticipated to outweigh the benefits. We discussed that AI therapy would be considered standard of care. We discussed common and serious adverse effects of AI therapy. Will reach out to Dr. Gomez regarding radiation oncology follow-up. Baseline DEXA ordered and referred to survivorship. On examination, she has a well healing right mastectomy site withtissue family practice physician reconstruction. No significant erythema, no exudate. Otherwise, she is well appearing with no notable abnormalities on HEENT, cardiac, pulmonary, abdominal, neurologic and skin examination today. The nurse practitioner and I spoke with the patient and provided written and verbal instructions. The above note has been reviewed and I agree with the assessment and plan. Follow-up arrangements were made prior to the patient being discharged from clinic. Mel Giron MD, MEd Cd Technician of Internal Medicine Division of Medical Oncology [facility] documented [facility] this [facility] Instructions* Patient Instructions* Dayami Boggs RN - 05/13/2022 8:00 AM EDT Images from the original note were not included. Store your prescribed pain medication in a locked cabinet or in an area only accessible to you. When you no longer need your prescribed pain medication, dispose of it immediately by one of the safe methods listed below: TAKE BACK PROGRAM: A drug take-back program is the best method to dispose of un- needed opioids safely. You can locate the take-back program closest to you @ https://takebackday.[employer].gov under the COLLECTION SITE NURSERY HELPER tab. Never dispose of un-needed medications down the sink or toilet. Instead, crush the medication and mix with damp coffee grounds or cat litter, place in a sealed plastic freezer bag, and dispose of in your regular trash. Your Medical/Oncology Team Doctor: Mel Giron MD Nurse Practitioner: Barbara Santiago APRN-PHARMACEUTICAL WORKER Primary Nurses: DARLENE DejesusN, RN, Dayami RN, BSN, OCN, Kelsie, RN, BSN, OCN We are available to take calls Wednesday-Wednesday 8:00am-4:30pm. During non-business hours and holidays phone calls will be managed by after-hours [facility] RN's. Please allow at least 10 business days for your team to complete any paperwork. When requesting medication refills, please try to provide as much notice as possible (5 days) in order to ensure that you do not run out of medication. documented in this encounterOS[facility] History of Present illness Narrative* Candi Luther RN - 04/29/2022 10:00 AM EDT HPI: Nando a 61 y/o female with H/o right breast cancer, S/p right mastectomy with TE. Plan to continue tissue expansions on the nursing schedule. Patient reported feeling well today, denies fever, chills, redness, tightness, nausea and vomiting. Patient is agreeable to proceed with expansion. PE: Right breast incisions c/d/i, no erythema noted. Tissue expanders palpable and in good positionon the chest wall. No erythema, edema or fluid collection noted. No alteration in skin integrity ordrainage noted. A/P: Patient is doing well, S/p Right breast reconstruction with tissue expanders on 04/10/22. Per order for serial tissue expansions, Right breast tissue family practice physician ports accessed per protocol. 60ml saline instilled into Right tissue expanders for a total volume of 90/350 ml. Good capillary refill noted throughout the expansion. Expansion tolerated well. Band-aid applied to injection sites, no bleeding noted. She will plan for continued tissue expansion every 1-2 weeks then will follow up with Dr. Daily to discuss the next step in reconstruction. Instructed patient to call office promptly 22/03 if symptoms of infection (reviewed with patient) or uncontrolled pain arises, and any questions or concerns prior to her next appointment. Patient verbalized understanding. AVS provided with instruction, all questions answered Discussed with patient that she should call the clinic prior to an expansion if she has any signs or symptoms of a cold, infection or illness, or if she is placed on antibiotics. She verbalized understanding. Patient denied any current chemo or radiation. documented in this [facility]08-24-2022 History of Present illness Narrative* CHRISTIAN Gabriel - 04/22/2022 3:15 PM EDT DRAIN LOG DRAIN # 1 Date Output 04/19 55 mL 04/20 30 mL 04/21 30 mL 04/22 10 mL DRAIN # Date Output mL mL mL mL DRAIN # Output mL mL mL mL DRAIN # Date Output mL mL mL mL DRAIN # Date Output mL mL mL mL DRAIN # Date Output mL mL mL mL * Tyrell Daily MD - 04/22/2022 3:15 PM EDT Reason for Visit H/o right breast cancer S/p right mastectomy ([place]), 04/10/2022 S/p right breast reconstruction with family practice physician, 04/10/2022 Postoperative evaluation Subjective Presents for previously scheduled f/u. No c/o. Review of systems: No fevers/chills. No wound symptoms such as redness, swelling, increasing pain, or drainage. No CP/SOB. Objective Right breast: incision CDI, no erythema or fluctuance 1 drain with serosanguinous output Assessment/Plan DC drain Commence tissue expansion FU on RN schedule for tissue expansion Activity recommendations reviewed * Bret Garcia RN - 04/22/2022 3:15 PM EDT Per order for serial expansion, right breast tissue family practice physician port accessed per protocol. 30 ml saline instilled family practice physician for a total volume of 30 ml/350ml. Good capillary refill noted throughout the expansion. Patient tolerated well. Bandaid applied to injection sites, no bleeding noted. Instructedpatient to monitor for s/s infection (temperature of 100.4 degrees Fahrenheit or greater, chills, redness, tenderness, swelling, warmth, drainage, excessive pain) and call the office at any time, 24 hours a day, 7 days a week, with any questions or concerns. MOLLY drain removed from right side. Drain site WNL. Bacitracin and gauze applied to site. Patient advised to call the office promptly with any signs or symptoms of infection: fever of 100.4 degrees Fahrenheit or higher, chills, increased or excessive pain, redness, swelling, or drainage. No showeringfor the next 48 hours. Cover drain insertion site with gauze or bandaid for the next 48 hours then may leave open to air. Please do not hesitate to call the office at [phone] with any questions or concerns. Please always call instead of MyChart if there are any urgent concerns. MyChart messages are only received during office hours. documented [facility] this [facility] Instructions* Patient Instructions* Bret Garcia RN - 04/22/2022 3:15 PM EDT - Remove drain - Start tissue expansion today - Follow up in 1 week on RN schedule to continue tissue expansion - OK to shower the evening of 04/23/2022 - Continue sling until 05/08/2022 - After 05/08/2022, OK to raise right shoulder to 90 degrees - After 05/22/2022, OK to raise right arm above head but no repetitions or exercises - Limit activity to leisurely walking on level ground - No lifting/pushing/pulling that exceeds 5 lbs until 06/10/2022 Call the office promptly with any signs or symptoms of infection: fever of 100.4 degrees Fahrenheitor higher, chills, redness, increasing or excessive pain, increasing swelling, drainage or concerns. -Follow up on the nursing schedule for continue expansion. *Call the office to discuss further expansion if you have signs of or are being treated for an upper respiratory infection, urinary tract infection, or any other infection. - No swimming in any water for 72 hours after an expansion. Please do not hesitate to call the office at [phone] with any questions or concerns. Please always call instead of MyChart if there are any urgent concerns. 500pxhart messages are only received during office hours. MOLLY drain removed from right side. Drain site WNL. Bacitracin and gauze applied to site. Patient advised to call the office promptly with any signs or symptoms of infection: fever of 100.4 degrees Fahrenheit or higher, chills, increased or excessive pain, redness, swelling, or drainage. No showeringfor the next 48 hours. Cover drain insertion site with gauze or bandaid for the next 48 hours then may leave open to air. Please do not hesitate to call the office at [phone] with any questions or concerns. Please always call instead of 500pxhart if there are any urgent concerns. [employer] messages are only received during office hours. [facility] this [facility] History of Present illness Narrative* Stuart Smallwood MD - 04/22/2022 12:45 PM EDT FOLLOW UP NOTE FOR [facility] BREAST SURGICAL ONCOLOGY CLINIC: DR. SMALLWOOD: HISTORY OF PRESENT ILLNESS The patient is known to me. I last saw her on 04/15/2022 and 04/01/2022 and 02/24/2022. I first mether on 02/04/2022. The patient is currently a 61-year-old white female. The patient had a body mass index/BMI of approximately 24.8 kg/m (5 foot, 3.5 inches tall, and weighed approximately 142 pounds), as of 02/24/2022. The patient lives in [place], [place]. ################################################################################ ############################################ The patient has a personal history of a RIGHT breast cancer process (pT2 [4.2 cm], pN1 [1/3 right axillary lymph nodes positive for macrometastatic carcinoma measuring 3 mm, without extranodal extension], 95% ER positive, 95% TX positive, HER2 negative, intermediate grade invasive mammary carcinomawith lobular features of the 5:00 position of the right breast [3.2 cm FRN]; Oncotype DX recurrencescore PENDING), which was initially diagnosed in late December 2021, and for which the patient underwenta right total mastectomy procedure and right axillary sentinel lymph node mapping and biopsy procedure (by mo) and placement of a right-sided tissue family practice physician (by Dr. Tyrell Daily of [facility] Plastic surgery) at [facility] on 04/10/2022. The patient has a personal history of NEGATIVE comprehensive genetic testing for any form of hereditary breast cancer syndrome, as based upon [place] 77- gene CancerNext-Expanded+RNA panel testfrom blood collected on 03/04/2022. 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 ################################################################################ ############################################ The patient is most recent outside prior breast imaging was performed at [facility] in [place], [place], including bilateral diagnostic digital mammogram and right breast ultrasound on 01/15/2022. On 02/21/2021, the patient underwent a 12 lead EKG through the [facility] in [place], [place].This showed normal sinus rhythm with a ventricular rate of 69 beats per minute. They stated: Impression: SINUS RHYTHM WITH SHORT TX. NONSPECIFIC T WAVE ABNORMALITY. ABNORMAL ECG. . On 04/02/2021, the patient underwent Cardiopulmonary Exercise Test (CPET) at the [facility], in [place], [place]. They stated: Summary: In summary, in the current exercise study, the patient achieved a normal work capacity (VO2 max = 23.6 ml/kg/min, 112% of VO2 max predicted); and a normal work rate (WR = 118W, 155% predicted). - The evidence for a cardiovascular pattern of limitation includes: none. - The evidence for a respiratory pattern of limitation includes: none. The overall pattern is suggestive of normal aerobic fitness. NOTE: Exercise tech staff added the following: Familiar symptoms of dyspnea were recreated during exercise. Shireen Escobedo MD, April 02, 2021. Electronically Signed On 04-04-2021 14:18:11 EDT by Shireen Escobedo. . On 01/20/2022, the patient underwent a right breast ultrasound-guided Elite 13 gauge vacuum assisted biopsy and clip placement procedure of a 4.5 x 1.8 x 1.5 cm right breast ultrasound lesion in the 11:00 position of the right breast [3.2 cm FRN] at [facility] in [place], [place]. The final pathology from 01/20/2022 showed low-grade invasive carcinoma with mixed ductal and lobular features, measuring 1.9 cm in greatest dimension, which was found to be >90% ER positive, 80-90% TX positive, and HER2/lizzette negative. On 04/01/2022, the patient's outside pathology was reviewed by Dr. Spears of [facility] breast pathology. They stated: Pathologic Diagnosis: Outside Slides: [id number] (01/20/22): A. Right breast spiculated mass at 5 o'clock, ultrasound guided core biopsy: Invasive mammary carcinoma with lobular features, grade 2 (score: tubule 3, nuclear 2, mitotic 1), 1.8 cm in greatest length. Manual immunohistochemical quantification using stains performed at the outside institution: Estrogen Receptor: Positive (95%, strong intensity). Progesterone Receptor: Positive (95%, strong intensity). HER2: Equivocal (Score 2+). HER2 FISH: Negative (ratio: 1.8, HER2/cell: 3.73) per outside report. Submitted controls show appropriate reactivity. Comment: The block has been requested to perform E-cadherin and p120 immunostains in order to subclassify the tumor. The results will be reported in an addendum. Dr. Adams has reviewed client services representative slides. at [id number]. . On 02/18/2022, the patient's outside breast imaging was reviewed by Dr. Biju Blum of [facility] breast Radiology. They stated: EXAM: BREAST IMAGING SECOND OPINION READING, 02/18/2022 09:07 AM. CLINICAL INDICATIONS: The patient presents to the surgical clinic of Dr. Smallwood for evaluation. The patient originally presented to an outside institution in December 2021 for further evaluation of a palpable right breast lump. The patient underwent a bilateral diagnostic mammogram and right breast ultrasound which identified a suspicious right breast mass for which ultrasound-guided biopsy was suggested. The patient underwent an ultrasound-guided biopsy the right breast with pathology returning invasive ca rcinoma with mixed ductal and lobular features. Requested evaluation of outside breast imaging. COMPARISON: Bilateral diagnostic mammogram with tomosynthesis January 15, 2022. Right breast ultrasound 2021. Postbiopsy mammogram of the right breast January 20, 2022. Remote mammograms from August was reviewed for comparative purposes. MAMMOGRAM FINDINGS: The breasts have scattered areas offibroglandular density. With regard to bilateral diagnostic mammogram of January 15, 2022 in the lower inner right breast there is an irregularly-shaped isodense mass with spiculated margins and associated architectural distortion. There is some retraction of the skin in the lower pole the right breast. Mammographically the central core of the mass measures approximately 4.5 x 2.9 x 3.0 cm. No additional definitive dominant mass, distortion, or suspicious Patricio calcification either breast. With regard to the postbiopsy mammogram of January 20, 2022 there is a appropriately positioned biopsy clip atthe inferolateral aspect of the mass. ULTRASOUND FINDINGS: With regard to the right breast ultrasound of January 15, 2022 in the 11:00 position of the right breast approximately 3.2 cm from the nipple there is an irregular shaped hypoechoic mass with spiculated margins and associated vascular flow. [facility] measures the mass at 4.5 x 1.8 x 1.5 cm. The latter 2 of the 3 measurements appear to underestimate the size of the mass. IMPRESSION: Biopsy-proven carcinoma in the 5:00 right breast as described above. . . On 02/24/2022, I personally reviewed the patient's outside breast imaging with Dr. Wei Robertson of [facility] breast radiology. We discussed repeating right breast ultrasound to better size the overallsonographic abnormality within the right breast representing her right breast cancer process. We discussed obtaining right axillary ultrasound to sonographically evaluate her right axillary lymph nodes. We discussed the possibility of consideration of subsequently ordering bilateral breast MRI on the patient. On 02/24/2022, the patient presented to my [facility] for evaluation. On 02/24/2022, we placed 2 digital photographs of the patient's right breast/chest region into her [facility] electronic medical records to illustrate the geographic location visible and palpable changes within her right breast, representing her right breast cancer process and skin entrance site from her r ecent right breast ultrasound-guided biopsy done at the outside facility on 01/20/2022. On 02/24/2022, patient underwent a 12 lead EKG at [facility]. This showed normal sinus rhythm with a ventricular rate of 75 beats per minute. This showed nonspecific T-wave abnormalities. This showed prolonged QT interval. This is classified as an abnormal EKG tracing by the preliminary computerized reading. The final reading of the 12 lead EKG stated: NORMAL SINUS RHYTHM. NONSPECIFIC T WAVE ABNORMALITY. PROLONGED QT INTERVAL OR TU FUSION, CONSIDER MYOCARDIAL DISEASE, ELECTROLYTE IMBALANCE, OR DRUG EFFECTS. Confirmed by Jesusita Hurt ([id number]) on 02/26/2022 5:37:03 AM. . On 02/24/2022, I had the following discussion with the patient and her and her sister in the presence of our nurse practitioner, Marlene Olivas: We discussed that I felt that the patient was not going to be an appropriate candidate for attempted right breast conserving surgery, and instead would need a right mastectomy approach. We discussed surgical evaluation of the right axillary lymph nodes with right axillary sentinel lymph node mapping and biopsy procedure, and possible radioactive lymph node dissection procedure. We discussed the patient could potentially be a candidate for reconstructive surgery associated with right mastectomy approach. We discussed the importance of having the patient be seen by 1 of the [facility]. We discussed the importance of having the patient be seen by 1 of the [facility] breast medical oncologist. We discussed the importance of having the patient be seen by 1 of the [facility] breast radiation oncologist. We discussed obtaining repeat right breast diagnostic digital mammogram to assess the overall size of her biopsy-proven right breast cancerprocess. We discussed the importance of right axillary ultrasound to sonographically assess her right axillary lymph nodes. We discussed ordering bilateral breast MRI on the patient for better sizingthe patient's right breast cancer process, as well as clearing her contralateral left breast. We discussed ordering a nuclear medicine cardiac stress test on the patient due to her abnormal EKG findings. We discussed having the patient be evaluated by the [facility] clinical cancer genetics service to discuss comprehensive genetic testing to rule out any form of hereditary breast cancer syndrome. I havediscussed all of these issues with the patient. I have answered all of her questions. The patient appears to understand what has been discussed, and she reports that she will follow-through accordingly, as is outlined above. We have given the patient contact information for our nurse practitioner, Effie Moe, and have instructed the patient to remain in contact with our nurse practitioner, Effie Moe, through [employer] [facility], for any future upcoming questions or concerns that they have regarding their management or follow-up in our [facility] breast Surgical Oncology Clinic. . On 02/24/2022, the patient underwent right breast ultrasound and right axillary ultrasound at [facility]. This was read by Dr. Wei Robertson of [facility] breast radiology. They stated: EXAM: US BREAST LIMITED UNILATERAL RIGHT, US AXILLA FOR MAMMOGRAPHY RIGHT, 02/24/2022 10:44 AM (accession [id number]), 02/24/2022 10:45 AM (accession [id number]). CLINICAL INDICATIONS: New right breast malignancy 5 o'clock, request for axillary evaluation as well. COMPARISON: January 15, 2022, January 20, 2022. FINDINGS: The biopsy-proven malignancy and associated clip is again demonstrated at the 5:00 zone 2 position. This consists of a markedly irregular ill-defined hypoechoic mass which on today's exam measures approximately 4.7 x 2.7 x 4.5 cm. Clip is noted within the mass. Evaluation of the right axilla demonstrates 2 lymph nodes with maintained normal morphology. No suspicious axillary lymph nodes are identified. IMPRESSION: 1. Biopsy-proven malignancy with measurements as described above. 2. Normal appearance of the right axilla. BI-RADS: 6: Known biopsy proven malignancy. Recommendation: Surgical excision when clinically appropriate. Recommendation Laterality: Right. . . On 02/27/2022, the patient underwent a bilateral breast MRI at [facility]. This was read by Dr. Wei Robertson of [facility] breast radiology. They stated: FINDINGS: Amount of fibroglandular tissue: heterogenous fibroglandular tissue. Background parenchymal enhancement: moderate symmetric. The right breast biopsy-proven malignancy is identified in the inferior central and inferior medial aspects consistingof a good: Irregular poorly marginated mass. Associated tissue marker is noted. This mass measures 4.5 x 2.9 x 3.0 cm. The mass does not appear to abut or invade the chest wall. There are scattered benign cysts in the left breast. There is no dominant mass, architectural distortion or area of suspic ious enhancement in the left breast. Axilla: There is no axillary lymphadenopathy. Internal MammaryChain: There is no internal mammary lymphadenopathy. Extramammary soft tissues: Unremarkable. IMPRESSION: 1. Biopsy proven malignancy in the inferior right breast as described. Continued clinical management recommended. 2. No MR evidence of malignancy in the left breast. Bi- RADS: 6: Known biopsy proven malignancy. Recommendation: Surgical excision when clinically appropriate. Recommendation Laterality: Right. . . On 03/04/2022, the patient was seen by Dr. Tyrell Daily of [facility] Plastic surgery. They stated: Plan: I discussed that the patient would be most suited to 2-stage implant-based reconstruction. After discussion, the patient stated that they wish to proceed with: right mastectomy and immediate breast reconstruction with tissue family practice physician. We will schedule/coordinate surgery and the patient will return at their preoperative appointment. . On 03/18/2022, the patient underwent a nuclear medicine cardiac stress test at [facility]. They stated: Interpretation Summary: Lexiscan Stress myocardial perfusion scan within normal limits. No evidence of ischemia. No evidence of prior myocardial injury. Normal left ventricular systolic function ( LVEF65% ). There is hot spot in the infero-medial right breast. Stress Findings: ECG. Baseline ECG is normal. Baseline ECG shows non-specific ST-T wave abnormalities consistent with ST depression. StressECG is unchanged from baseline. There was no ST segment deviation noted during stress. Recovery ECGreturned to baseline. Negative pharm stress test. Stress Findings A pharmacological stress test was performed using regadenoson without low-level exercise. The patient reported no symptoms prior to the stress test. The patient reported dizziness, shortness of breath and stomach discomfort during the stress test. The patient reached the end of the protocol. All symptoms resolved in recovery. At rest, the ECG is NSR with NS ST and TW changes. No angina or ECG changes with Lexiscan infusion. NEGATIVE LEXISCAN STRESS ECG. On 03/20/2022, the patient was seen by Dr. Deepti Gomez of [facility] breast Radiation Oncology. On 04/01/2022, the genetic counselor, Silverio Romero issued the following telephone encounter note inthe patient's [facility] electronic medical record chart. They stated: We met with initially in the Clinical Cancer Genetics Program on 03/04/2022 for genetic risk assessment and counseling. We spoke by telephone on 03/13/2022 to discuss the negative results of her STAT genetic testing. Homartin spoke by telephone on 04/01/22 for follow-up genetic counseling to discuss the results of hergenetic testing. Genetic counseling middle school spanish teacher, Halle Dowell, observed this encounter. Ms. Cook at another appointment when I called to discuss results. Should she have any questions about the results she can contact me directly at [phone]. RESULT AND INTERPRETATION: Based upon s personal and family history, she underwent multi-gene panel testing for variants in genes reported to be associated with hereditary cancer predisposition. 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 This 77-gene panel test is called [employer]-Expanded+RNA and was performed by [employer]. The genes that were tested are listed below: AIP, ALK, APC, ELEUTERIO, AXIN2, BAP1, BARD1, BLM, BMPR1A, BRCA1, BRCA2, BRIP1, CDC73, CDH1, CDK4, CDKN1B, CDKN2A, CHEK2, CTNNA1, DICER1, EGFR, EGLN1, EPCAM, FANCC, FH, FLCN, GALNT12, GREM1, HOXB13, KIF1B,KIT, LZTR1, MAX, MEN1, MET, MITF, MLH1, MSH2, MSH3, MSH6, MUTYH, NBN, NF1, NF2, NTHL1, PALB2, PDGFRA, PHOX2B, PMS2, POLD1, POLE, POT1, PNHPF8G, PTCH1, PTEN, RAD51C, RAD51D, RB1, RECQL, RET, SDHA, SDHAF2, SDHB, SDHC, SDHD, SMAD4, SMARCA4, SMARCB1, SMARCE1, STK11, SUFU, FJCR319, TP53, TSC1, TSC2, VHLand XRCC2. Refer to the scanned report for testing specifications and limitations. CANCER RISK ASSESSMENT: Individuals who are found to have one MUTYH pathogenic variant (aka monoallelic or heterozygous) are thought to have a moderately increased risk for colon cancer. A study of 2,332 relatives ofindividuals with colorectal cancer with one MUTYH pathogenic variant showed that carriers have an estimated 2.5-fold increased risk for colorectal cancer, compared to the general population (Win 2014). The estimated colorectal cancer risks, up to 70 years of age, were 7.2% (4.6%-11.3%) for males with one MUTYH pathogenic variant and 5.6% (3.6%-8.8%) for female with one MUTYH pathogenic variant, irrespective of family history. The risks for colorectal cancer were higher for individuals with one MUTYH pathogenic variant if they had a first-degree relative with colorectal cancer. Individuals with two MUTYH pathogenic variants (aka biallelic) have a condition called MUTYH-Associated Polyposis (MAP), which is associated with a high risk for multiple colon polyps and colon cancer. This means that they have a pathogenic variant on both copies of their MUTYH gene, one inherited from each parent. Ms. Cook does NOT have MAP, but she could have family members who are at-risk for this condition. Additionally, we discussed the risk for Ms. Cook to develop ovarian cancer based on her maternal aunt's reported history. The lifetime risk for ovarian cancer in the general population is 1.5%. Women with a first-degree relative (mother/sister/daughter) with ovarian cancer have a 3-5% lifetimerisk for ovarian cancer. Women with a second-degree relative (aunt/grandmother/niece) with ovarian cancer have a 1.5-2.5% lifetime risk for ovarian cancer. On 04/10/2023, the patient underwent a right total mastectomy procedure and right axillary sentinellymph node mapping and biopsy procedure (by mo) and placement of a right-sided tissue family practice physician (by Dr. Tyrell Daily of [facility] Plastic surgery). The final pathology from 04/10/[address] Antelmo Adams of [facility] breast pathology. This showed: (1) The right mastectomy specimen contained a 4.2 cm intermediate grade invasive ductal carcinoma. The final surgical resection margins the right mastectomy specimen were negative for invasive ductal carcinoma, the closest margin being the anterior-inferior margin at a distance of 3 mm. (2) Right axillary sentinel lymph node #1, which was negative for carcinoma on frozen section analysis, showed a 3 mm macrometastatic deposit, with no extranodal extension on final histological evaluation. Right axillary sentinel lymph node #2 was negative for carcinoma on final histological evaluation. Right axillary non sentinel lymph node #1 was negative for car cinoma. The patient returns to my [facility] breast surgical oncology clinic at this time. Complete review of systems is otherwise negative for any new findings aside from anything else which was mentioned elsewhere within the current clinic note. PHYSICAL EXAMINATION Vital Signs: BP 126/73 Pulse 77 Ht 1.613 m (5' 3.5 ) Wt 64.8 kg (142 lb 12.8 oz) BMI 24.90 kg/m Smoking Status Never Smoker ,Body mass index is 24.9 kg/m . Our Nursing Staff was present for the evaluation (Simin Lemos and Effie Moe). The patient came to the clinic exam room with her . The patient's right mastectomy/family practice physician reconstruction site looks fine. There is no evidence of infection, drainage, or fluid collection. The patient has no evidence of recurrent disease within the skin or within the soft tissues of the patient's right mastectomy/family practice physician reconstruction site. The patient's right-sided surgical MOLLY drains are being managed by Dr. Tyrell Daily of [facility] Plastic surgery. The patient has no discrete, concerning, palpable left breast masses within the left breast profile. The patient has no overtly obvious discrete palpable cervical, supraclavicular, or axillary adenopathy bilaterally. The patient has no significant clinical findings in the remainder of her clinical examination of her chest region or of her clinical examination of her abdominal region. BREAST IMAGING See HPI. The patient will be due for next annual left breast digital mammogram by January 2023. ASSESSMENT AND PLAN ################################################################################ ############################################ The patient has a personal history of a RIGHT breast cancer process (pT2 [4.2 cm], pN1 [1/3 right axillary lymph nodes positive for macrometastatic carcinoma measuring 3 mm, without extranodal extension], 95% ER positive, 95% TX positive, HER2 negative, intermediate grade invasive mammary carcinomawith lobular features of the 5:00 position of the right breast [3.2 cm FRN]; Oncotype DX recurrencescore PENDING), which was initially diagnosed in late December 2021, and for which the patient underwenta right total mastectomy procedure and right axillary sentinel lymph node mapping and biopsy procedure (by mo) and placement of a right-sided tissue family practice physician (by Dr. Tyrell Daily of [facility] Plastic surgery) at [facility] on 04/10/2022. The patient has a personal history of NEGATIVE comprehensive genetic testing for any form of hereditary breast cancer syndrome, as based upon [place] 77- gene CancerNext-Expanded+RNA panel testfrom blood collected on 03/04/2022. 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 ################################################################################ ############################################ We discussed the patient's final pathology results which showed that right axillary sentinel lymph node #1 contained a 3 mm focus of macrometastatic carcinoma with no extranodal extension which was not identified on frozen section analysis at the time of her right breast cancer surgery. The prior The International Breast Cancer Study Group (IBCSG) Clinical Trial Study, for both BCS and mastectomy patients with 1 or more positive sentinel lymph nodes (and specifically micrometastatic SLNs [?2 mm]), showed that there was NO ADDED BENEFIT from the addition of axillary lymph node dissection for local control, disease-free survival, or overall survival (Rand V, Inocente BF, Antonya S, Nylae G, Madelineini A, Karin P, Barvikkilla P, Chinéstor C, Marilyn M, Neva M, Gentilini O, [place] MG, Mazzarol G, [place] S, Maddy JR, Anabelle J, Galatius H, Recalcati A, Tonia D, Rosalio M, Willian M, Natan KN, Don MM, Maribel A, Toshia , Azeb RD, Karin U; International Breast Cancer Study Group Trial investigators. Axillary dissection versus no axillary dissection in patients with sentinel-node micrometastases (IBCSG ): a phase 3 randomised controlled trial. Lancet Oncol 2013; 14(4):297-305 [doi: 10.1016/S6710-1957(97)52186-4]). Therefore, as based upon the prior The International Breast Cancer Study Group (IBCSG) - Clinical Trial Study, I wouldconsider extrapolating the above study results to this patient, and I would conclude that there would be no added benefit in this patient to perform a completion right axillary lymph node dissection at a subsequent time. Therefore, I would not recommend a completion right axillary lymph node dissection procedure. The patient will continue her ongoing postoperative follow-up with Dr. Tyrell Daily of [facility] Plastic surgery for management of her right-sided surgical MOLLY drains. We will initiate the process of sending off Oncotype DX recurrence score testing on the patient's right breast cancer process. We will subsequently have the patient be evaluated by 1 of the [facility] breast medical oncologist to discuss postoperative adjuvant therapy recommendations based upon her eventual Oncotype DX results withthe patient's biopsy-proven right breast cancer process. The patient will be due for next annual left breast digital mammogram by January 2023. We will continue to follow the patient annually. Therefore, we will next see the patient back on 02/02/2023, for repeat clinical exam and left breast digital mammogram. The patient should see us back sooner for new breast related problems or new breast related concerns. Otherwise, we will see her back on 02/02/2023, as is outlined above. I have discussed all of these issues with the patient. I have answered all of her questions. The patient appears to understand what has been discussed, and she reports that she will follow-through accordingly, as is outlined above. We have given the patient contact information for our nurse practitioner, Effie Moe, andhave instructed the patient to remain in contact with our nurse practitioner, Effie Moe,through [employer], for any future upcoming questions or concerns that they have regarding their management or follow-up in our [facility] breast Surgical Oncology Clinic. This note was dictated using [employer] voice recognition software. Attempts at proofreading were made, but errors may occasionally still occur. I have reviewed Malia Cook medical, surgical and other pertinent history in detail, and have updated medication and allergy information in the computerized patient record. REFERRING/PRIMARY PROVIDER(S) -Referring Provider for today's consult: Tucker Haywood MD -Primary Care Provider: Tucker Haywood [facility] History of Present illness Narrative* CHRISTIAN Gabriel - 04/15/2022 12:45 PM EDT DRAIN LOG DRAIN # 1 Date Output 814 70 mL 8/15 170 mL 8/16 100 mL /17 65 mL DRAIN # 2 Date Output 814 20 mL 8/15 10 mL 8/16 13 mL 8/17 >11 mL DRAIN # Date Output mL mL mL mL DRAIN # Date Output mL mL mL mL DRAIN # Date Output mL mL mL mL DRAIN # Date Output mL mL mL mL * Alicia Smallwood PA-C - 04/15/2022 12:45 PM EDT Plastic & Reconstructive Surgery Progress Note Patient was evaluated by myself and Dr. Daily Reason for visit: Malia Cook is a 61 y.o. female with a history of right breast cancer. S/p right mastectomy and immediate reconstruction with placement of tissue family practice physician (no IOF), 04/10/2022 Postoperative assessment Subjective: Presents for first follow up with complaints of intermittent sharp pain above incision line. Otherwise, doing well. Taking tylenol, ibuprofen and flexeril at night for pain control. Two drains present, see nursing notes for output. Taking antibiotics as prescribed. Wearing surgical bra 22/03. ROS: No fevers/chills, CP, SOB, or wound symptoms such as redness, swelling or drainage. Objective: General appearance: alert, cooperative, no distress Right Breast: incision c/d/i with dermabond in place. No evidence of infection or fluid collection.2 drains present with SS drainage. TE in good position on chest wall. Assessment/Plan: Malia Cook is doing well s/p immediate reconstruction with placement of tissue family practice physician D/c drain #2 Continue drain #1 Continue antibiotics until all drains removed, refill if necessary No showering until all drains Continue surgical bra 22/03 x 4 weeks Activity restrictions reviewed- no arm abduction greater than 90 degrees or lifting over 5 pounds for 4 weeks post-op. Follow up with Dr. Daily in 1 week or sooner if any issues/concerns [facility]* Patient Instructions* Alicia Smallwood PA-C - 04/15/2022 12:45 PM EDT Follow up next week [facility] History of Present illness Narrative* Stuart Smallwood MD - 04/15/2022 12:30 PM EDT FOLLOW UP NOTE FOR [facility] BREAST SURGICAL ONCOLOGY CLINIC: DR. SMALLWOOD: HISTORY OF PRESENT ILLNESS The patient is known to me. I last saw her on 04/01/2022 and 02/24/2022. I first met her on 02/04/2022. The patient is currently a 61-year-old white female. The patient had a body mass index/BMI of approximately 24.8 kg/m (5 foot, 3.5 inches tall, and weighed approximately 142 pounds), as of 02/24/2022. The patient lives in [place], [place]. 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 Tyrell Daily of [facility] Plastic surgery) at [facility] on 04/10/2022. ################################################################# THE FINAL PATHOLOGY IS STILL PENDING AT THIS TIME. ################################################################# The patient has a personal history of NEGATIVE comprehensive genetic testing for any form of hereditary breast cancer syndrome, as based upon [place] 77- gene CancerNext-Expanded+RNA panel testfrom blood collected on 03/04/2022. 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 ################################################################################ ############################################ The patient is most recent outside prior breast imaging was performed at [facility] in [place], [place], including bilateral diagnostic digital mammogram and right breast ultrasound on 01/15/2022. On 02/21/2021, the patient underwent a 12 lead EKG through the [facility] in [place], [place].This showed normal sinus rhythm with a ventricular rate of 69 beats per minute. They stated: Impression: SINUS RHYTHM WITH SHORT TX. NONSPECIFIC T WAVE ABNORMALITY. ABNORMAL ECG. . On 04/02/2021, the patient underwent Cardiopulmonary Exercise Test (CPET) at the [facility], in [place], [place]. They stated: Summary: In summary, in the current exercise study, the patient achieved a normal work capacity (VO2 max = 23.6 ml/kg/min, 112% of VO2 max predicted); and a normal work rate (WR = 118W, 155% predicted). - The evidence for a cardiovascular pattern of limitation includes: none. - The evidence for a respiratory pattern of limitation includes: none. The overall pattern is suggestive of normal aerobic fitness. NOTE: Exercise tech staff added the following: Familiar symptoms of dyspnea were recreated during exercise. Shireen Escobedo MD, April 02, 2021. Electronically Signed On 04-04-2021 14:18:11 EDT by Shireen Escobedo. . On 01/20/2022, the patient underwent a right breast ultrasound-guided Elite 13 gauge vacuum assisted biopsy and clip placement procedure of a 4.5 x 1.8 x 1.5 cm right breast ultrasound lesion in the 11:00 position of the right breast [3.2 cm FRN] at [facility] in [place], [place]. The final pathology from 01/20/2022 showed low-grade invasive carcinoma with mixed ductal and lobular features, measuring 1.9 cm in greatest dimension, which was found to be >90% ER positive, 80-90% TX positive, and HER2/lizzette negative. On 04/01/2022, the patient's outside pathology was reviewed by Dr. Spears of [facility] breast pathology. They stated: Pathologic Diagnosis: Outside Slides: [id number] (01/20/22): A. Right breast spiculated mass at 5 o'clock, ultrasound guided core biopsy: Invasive mammary carcinoma with lobular features, grade 2 (score: tubule 3, nuclear 2, mitotic 1), 1.8 cm in greatest length. Manual immunohistochemical quantification using stains performed at the outside institution: Estrogen Receptor: Positive (95%, strong intensity). Progesterone Receptor: Positive (95%, strong intensity). HER2: Equivocal (Score 2+). HER2 FISH: Negative (ratio: 1.8, HER2/cell: 3.73) per outside report. Submitted controls show appropriate reactivity. Comment: The block has been requested to perform E-cadherin and p120 immunostains in order to subclassify the tumor. The results will be reported in an addendum. Dr. Adams has reviewed client services representative slides. at 1735. . On 02/18/2022, the patient's outside breast imaging was reviewed by Dr. Biju Blum of [facility] breast Radiology. They stated: EXAM: BREAST IMAGING SECOND OPINION READING, 02/18/2022 09:07 AM. CLINICAL INDICATIONS: The patient presents to the surgical clinic of Dr. Smallwood for evaluation. The patient originally presented to an outside institution in December 2021 for further evaluation of a palpable right breast lump. The patient underwent a bilateral diagnostic mammogram and right breast ultrasound which identified a suspicious right breast mass for which ultrasound-guided biopsy was suggested. The patient underwent an ultrasound-guided biopsy the right breast with pathology returning invasive ca rcinoma with mixed ductal and lobular features. Requested evaluation of outside breast imaging. COMPARISON: Bilateral diagnostic mammogram with tomosynthesis January 15, 2022. Right breast ultrasound 2021. Postbiopsy mammogram of the right breast January 20, 2022. Remote mammograms from August was reviewed for comparative purposes. MAMMOGRAM FINDINGS: The breasts have scattered areas offibroglandular density. With regard to bilateral diagnostic mammogram of January 15, 2022 in the lower inner right breast there is an irregularly-shaped isodense mass with spiculated margins and associated architectural distortion. There is some retraction of the skin in the lower pole the right breast. Mammographically the central core of the mass measures approximately 4.5 x 2.9 x 3.0 cm. No additional definitive dominant mass, distortion, or suspicious Patricio calcification either breast. With regard to the postbiopsy mammogram of January 20, 2022 there is a appropriately positioned biopsy clip atthe inferolateral aspect of the mass. ULTRASOUND FINDINGS: With regard to the right breast ultrasound of January 15, 2022 in the 11:00 position of the right breast approximately 3.2 cm from the nipple there is an irregular shaped hypoechoic mass with spiculated margins and associated vascular flow. [facility] the mass at 4.5 x 1.8 x 1.5 cm. The latter 2 of the 3 measurements appear to underestimate the size of the mass. IMPRESSION: Biopsy-proven carcinoma in the 5:00 right breast as described above. . . On 02/24/2022, I personally reviewed the patient's outside breast imaging with Dr. Wei Robertson of [facility] breast radiology. We discussed repeating right breast ultrasound to better size the overallsonographic abnormality within the right breast representing her right breast cancer process. We discussed obtaining right axillary ultrasound to sonographically evaluate her right axillary lymph nodes. We discussed the possibility of consideration of subsequently ordering bilateral breast MRI on the patient. On 02/24/2022, the patient presented to my [facility] Breast Surgical Oncology [facility] for evaluation. On 02/24/2022, we placed 2 digital photographs of the patient's right breast/chest region into her [facility] electronic medical records to illustrate the geographic location visible and palpable changes within her right breast, representing her right breast cancer process and skin entrance site from her r ecent right breast ultrasound-guided biopsy done at the outside facility on 01/20/2022. On 02/24/2022, patient underwent a 12 lead EKG at [facility]. This showed normal sinus rhythm with a ventricular rate of 75 beats per minute. This showed nonspecific T-wave abnormalities. This showed prolonged QT interval. This is classified as an abnormal EKG tracing by the preliminary computerized reading. The final reading of the 12 lead EKG stated: NORMAL SINUS RHYTHM. NONSPECIFIC T WAVE ABNORMALITY. PROLONGED QT INTERVAL OR TU FUSION, CONSIDER MYOCARDIAL DISEASE, ELECTROLYTE IMBALANCE, OR DRUG EFFECTS. Confirmed by Jesusita Hurt ([id number]) on 02/26/2022 5:37:03 AM. . On 02/24/2022, I had the following discussion with the patient and her and her sister in the presence of our nurse practitioner, Marlene Olivas: We discussed that I felt that the patient was not going to be an appropriate candidate for attempted right breast conserving surgery, and instead would need a right mastectomy approach. We discussed surgical evaluation of the right axillary lymph nodes with right axillary sentinel lymph node mapping and biopsy procedure, and possible radioactive lymph node dissection procedure. We discussed the patient could potentially be a candidate for reconstructive surgery associated with right mastectomy approach. We discussed the importance of having the patient be seen by 1 of the [facility]. We discussed the importance of having the patient be seen by 1 of the [facility] breast medical oncologist. We discussed the importance of having the patient be seen by 1 of the [facility] breast radiation oncologist. We discussed obtaining repeat right breast diagnostic digital mammogram to assess the overall size of her biopsy-proven right breast cancerprocess. We discussed the importance of right axillary ultrasound to sonographically assess her right axillary lymph nodes. We discussed ordering bilateral breast MRI on the patient for better sizingthe patient's right breast cancer process, as well as clearing her contralateral left breast. We discussed ordering a nuclear medicine cardiac stress test on the patient due to her abnormal EKG findings. We discussed having the patient be evaluated by the [facility] clinical cancer genetics service to discuss comprehensive genetic testing to rule out any form of hereditary breast cancer syndrome. I havediscussed all of these issues with the patient. I have answered all of her questions. The patient appears to understand what has been discussed, and she reports that she will follow-through accordingly, as is outlined above. We have given the patient contact information for our nurse practitioner, Effie Moe, and have instructed the patient to remain in contact with our nurse practitioner, Effie Moe, through [employer], for any future upcoming questions or concerns that they have regarding their management or follow-up in our [facility] breast Surgical Oncology Clinic. . On 02/24/2022, the patient underwent right breast ultrasound and right axillary ultrasound at [facility]. This was read by Dr. Wei Robertson of [facility] breast radiology. They stated: EXAM: US BREAST LIMITED UNILATERAL RIGHT, US AXILLA FOR MAMMOGRAPHY RIGHT, 02/24/2022 10:44 AM (accession [id number]), 02/24/2022 10:45 AM (accession [id number]). CLINICAL INDICATIONS: New right breast malignancy 5 o'clock, request for axillary evaluation as well. COMPARISON: January 15, 2022, January 20, 2022. FINDINGS: The biopsy-proven malignancy and associated clip is again demonstrated at the 5:00 zone 2 position. This consists of a markedly irregular ill-defined hypoechoic mass which on today's exam measures approximately 4.7 x 2.7 x 4.5 cm. Clip is noted within the mass. Evaluation of the right axilla demonstrates 2 lymph nodes with maintained normal morphology. No suspicious axillary lymph nodes are identified. IMPRESSION: 1. Biopsy-proven malignancy with measurements as described above. 2. Normal appearance of the right axilla. BI-RADS: 6: Known biopsy proven malignancy. Recommendation: Surgical excision when clinically appropriate. Recommendation Laterality: Right. . . On 02/27/2022, the patient underwent a bilateral breast MRI at [facility]. This was read by Dr. Wei Robertson of [facility] breast radiology. They stated: FINDINGS: Amount of fibroglandular tissue: heterogenous fibroglandular tissue. Background parenchymal enhancement: moderate symmetric. The right breast biopsy-proven malignancy is identified in the inferior central and inferior medial aspects consistingof a good: Irregular poorly marginated mass. Associated tissue marker is noted. This mass measures 4.5 x 2.9 x 3.0 cm. The mass does not appear to abut or invade the chest wall. There are scattered benign cysts in the left breast. There is no dominant mass, architectural distortion or area of suspic ious enhancement in the left breast. Axilla: There is no axillary lymphadenopathy. Internal MammaryChain: There is no internal mammary lymphadenopathy. Extramammary soft tissues: Unremarkable. IMPRESSION: 1. Biopsy proven malignancy in the inferior right breast as described. Continued clinical management recommended. 2. No MR evidence of malignancy in the left breast. Bi- RADS: 6: Known biopsy proven malignancy. Recommendation: Surgical excision when clinically appropriate. Recommendation Laterality: Right. . . On 03/04/2022, the patient was seen by Dr. Tyrell Daily of [facility] Plastic surgery. They stated: Plan: I discussed that the patient would be most suited to 2-stage implant-based reconstruction. After discussion, the patient stated that they wish to proceed with: right mastectomy and immediate breast reconstruction with tissue family practice physician. We will schedule/coordinate surgery and the patient will return at their preoperative appointment. . On 03/18/2022, the patient underwent a nuclear medicine cardiac stress test at [facility]. They stated: Interpretation Summary: Lexiscan Stress myocardial perfusion scan within normal limits. No evidence of ischemia. No evidence of prior myocardial injury. Normal left ventricular systolic function ( LVEF65% ). There is hot spot in the infero-medial right breast. Stress Findings: ECG. Baseline ECG is normal. Baseline ECG shows non-specific ST-T wave abnormalities consistent with ST depression. StressECG is unchanged from baseline. There was no ST segment deviation noted during stress. Recovery ECGreturned to baseline. Negative pharm stress test. Stress Findings A pharmacological stress test was performed using regadenoson without low-level exercise. The patient reported no symptoms prior to the stress test. The patient reported dizziness, shortness of breath and stomach discomfort during the stress test. The patient reached the end of the protocol. All symptoms resolved in recovery. At rest, the ECG is NSR with NS ST and TW changes. No angina or ECG changes with Lexiscan infusion. NEGATIVE LEXISCAN STRESS ECG. On 03/20/2022, the patient was seen by Dr. Deepti Gomez of [facility] breast Radiation Oncology. On 04/01/2022, the genetic counselor, Silverio Rmoero issued the following telephone encounter note inthe patient's [facility] electronic medical record chart. They stated: We met with initially in the Clinical Cancer Genetics Program on 03/04/2022 for genetic risk assessment and counseling. We spoke by telephone on 03/13/2022 to discuss the negative results of her STAT genetic testing. Tenzin spoke by telephone on 04/01/22 for follow-up genetic counseling to discuss the results of hergenetic testing. Genetic counseling middle school spanish teacher, Halle Dowell, observed this encounter. Ms. Cook at another appointment when I called to discuss results. Should she have any questions about the results she can contact me directly at [phone]. RESULT AND INTERPRETATION: Based upon s personal and family history, she underwent multi-gene panel testing for variants in genes reported to be associated with hereditary cancer predisposition. 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 This 77-gene panel test is called [employer] and was performed by [employer]. The genes that were tested are listed below: AIP, ALK, APC, ELEUTERIO, AXIN2, BAP1, BARD1, BLM, BMPR1A, BRCA1, BRCA2, BRIP1, CDC73, CDH1, CDK4, CDKN1B, CDKN2A, CHEK2, CTNNA1, DICER1, EGFR, EGLN1, EPCAM, FANCC, FH, FLCN, GALNT12, GREM1, HOXB13, KIF1B,KIT, LZTR1, MAX, MEN1, MET, MITF, MLH1, MSH2, MSH3, MSH6, MUTYH, NBN, NF1, NF2, NTHL1, PALB2, PDGFRA, PHOX2B, PMS2, POLD1, POLE, POT1, KJAWN0R, PTCH1, PTEN, RAD51C, RAD51D, RB1, RECQL, RET, SDHA, SDHAF2, SDHB, SDHC, SDHD, SMAD4, SMARCA4, SMARCB1, SMARCE1, STK11, SUFU, GCNM927, TP53, TSC1, TSC2, VHLand XRCC2. Refer to the scanned report for testing specifications and limitations. CANCER RISK ASSESSMENT: Individuals who are found to have one MUTYH pathogenic variant (aka monoallelic or heterozygous) are thought to have a moderately increased risk for colon cancer. A study of 2,332 relatives ofindividuals with colorectal cancer with one MUTYH pathogenic variant showed that carriers have an estimated 2.5-fold increased risk for colorectal cancer, compared to the general population (Win 2014). The estimated colorectal cancer risks, up to 70 years of age, were 7.2% (4.6%-11.3%) for males with one MUTYH pathogenic variant and 5.6% (3.6%-8.8%) for female with one MUTYH pathogenic variant, irrespective of family history. The risks for colorectal cancer were higher for individuals with one MUTYH pathogenic variant if they had a first-degree relative with colorectal cancer. Individuals with two MUTYH pathogenic variants (aka biallelic) have a condition called MUTYH-Associated Polyposis (MAP), which is associated with a high risk for multiple colon polyps and colon cancer. This means that they have a pathogenic variant on both copies of their MUTYH gene, one inherited from each parent. Ms. Cook does NOT have MAP, but she could have family members who are at-risk for this condition. Additionally, we discussed the risk for Ms. Cook to develop ovarian cancer based on her maternal aunt's reported history. The lifetime risk for ovarian cancer in the general population is 1.5%. Women with a first-degree relative (mother/sister/daughter) with ovarian cancer have a 3-5% lifetimerisk for ovarian cancer. Women with a second-degree relative (aunt/grandmother/niece) with ovarian cancer have a 1.5-2.5% lifetime risk for ovarian cancer. On 04/10/2023, the patient underwent a right total mastectomy procedure and right axillary sentinellymph node mapping and biopsy procedure (by mo) and placement of a right-sided tissue family practice physician (by Dr. Tyrell Daily of [facility] Plastic surgery). The final pathology from 04/10/2022 was read by xxx xxxx of [facility] breast pathology. This showed: ################################################################# THE FINAL PATHOLOGY IS STILL PENDING AT THIS TIME. ################################################################# The patient returns to my [facility] breast surgical oncology clinic at this time. Complete review of systems is otherwise negative for any new findings aside from anything else which was mentioned elsewhere within the current clinic note. PHYSICAL EXAMINATION Vital Signs: BP 136/69 Pulse 82 Temp 97.3 F (36.3 C) (Oral) Ht 1.613 m (5' 3.5 ) Wt 64.4 kg(142 lb) BMI 24.76 kg/m Smoking Status Never Smoker ,Body mass index is 24.76 kg/m . Our Nursing Staff was present for the evaluation (Lore Patel and Effie Moe). The patient came to the clinic exam room with her and her sister. The patient's right mastectomy/family practice physician reconstruction site looks fine. There is no evidence of infection, drainage, or fluid collection. The patient has no evidence of recurrent disease within the skin or within the soft tissues of the patient's right mastectomy/family practice physician reconstruction site. The patient's right-sided surgical MOLLY drains are being managed by Dr. Tyrell Daily of [facility] Plastic surgery. The patient has no discrete, concerning, palpable left breast masses within the left breast profile. The patient has no overtly obvious discrete palpable cervical, supraclavicular, or axillary adenopathy bilaterally. The patient has no significant clinical findings in the remainder of her clinical examination of her chest region or of her clinical examination of her abdominal region. BREAST IMAGING See HPI. The patient will be due for next annual left breast digital mammogram by January 2023. 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 Tyrell Daily of [facility] Plastic surgery) at [facility] on 04/10/2022. ################################################################# THE FINAL PATHOLOGY IS STILL PENDING AT THIS TIME. ################################################################# ################################################################################ ############################################ ################################################################# THE FINAL PATHOLOGY IS STILL PENDING AT THIS TIME. ################################################################# The patient will continue her ongoing postoperative follow-up with Dr. Tyrell Daily of [facility] Plastic surgery for management of her right-sided surgical MOLLY drains. We will initiate the process of sending off Oncotype DX recurrence score testing on the patient's right breast cancer process. We will subsequently have the patient be evaluated by 1 of the [facility] breast medical oncologist to discuss postoperative adjuvant therapy recommendations based upon her eventual Oncotype DX results withthe patient's biopsy-proven right breast cancer process. [facility] [place] 04/22/2022, 12:45 p.m.. The patient will be due for next annual left breast digital mammogram by January 2023. Thereafter, We will continue to follow the patient annually. Therefore, we will next see the patient back on 02/02/2023, for repeat clinical exam and left breast digital mammogram. The patient should see us back sooner for new breast related problems or new breast related concerns. Otherwise, we will see her back on 02/02/2023, as is outlined above. I have discussed all of these issues with the patient. I have answered all of her questions. The patient appears to understand what has been discussed, and she reports that she will follow-through accordingly, as is outlined above. We have given the patient contact information for our nurse practitioner, Effie Moe, andhave instructed the patient to remain in contact with our nurse practitioner, Effie Moe,through [employer], for any future upcoming questions or concerns that they have regarding their management or follow-up in our [facility] breast Surgical Oncology Clinic. This note was dictated using [employer] voice recognition software. Attempts at proofreading were made, but errors may occasionally still occur. [facility] other [facility] detail, and have updated medication and allergy information in the computerized patient record. REFERRING/PRIMARY PROVIDER(S) -Referring Provider for today's consult: Tucker Haywood MD -Primary Care Provider: [facility]* Nursing Notes - Ragini Galvez RN - 04/11/2022 9:52 AM EDT Patient left with all belongings. No other needs at this time. SO states understanding of drain care, Rx, and AVS. Provided drain care supplies and an extra bra. Patient left in WC with SYSTEM CONFIGURATION SPECIALIST to personal car driven by SO. Ragini Galvez RN [facility]08-13-2022 Miscellaneous Notes* Nursing Notes - Ragini Galvez RN - 04/11/2022 9:52 AM EDT Patient left with all belongings. No other needs at this time. SO states understanding of drain care, Rx, and AVS. Provided drain care supplies and an extra bra. Patient left in WC with SYSTEM CONFIGURATION SPECIALIST to personal car driven by SO. Ragini Galvez RN * Nursing Notes - Ragini Galvez RN - 04/11/2022 8:16 AM EDT Patient provided AVS, supplies for drain care. Educated patient on drain care and needs. Will demonstrate to SO when he arrives. Patient states that sister is staying with her to care for the drains and she was taught in the clinic. Ragini Gavlez RN * Nursing Notes - Ragini Galvez RN - 04/11/2022 7:10 AM EDT Patient urinated and states it was a good amount. Missed the hat. Ragini Galvez RN * Nursing Notes - Lilly Funez RN - 04/11/2022 4:45 AM EDT Bennett removed per order by this RN. Patient tolerated the procedure well. Balloon intact and 10mL of saline was removed from the balloon. * Op Note - Stuart Smallwood MD - 04/10/2022 5:47 PM EDT Operative Report DATE PERFORMED: 04/11/2022 SURGEON(S): Stuart Smallwood MD (staff attending surgeon). Dr. Smallwood was present for the entire portion of the case performed by the [facility] Breast Surgical Oncology Service. PREOPERATIVE DIAGNOSES: 1. The patient is a 61-year-old white female with a recently newly diagnosed right breast cancer process in the lower to lower inner aspect of the right breast, which consisted of an approximately 4.5 cm MRI and ultrasound lesion, which was consistent with an intermediate-grade invasive ductal carcinoma, which was 90% ER positive, 90% TX positive, and her2-lizzette negative, and for which the patient was planned for right mastectomy procedure and surgical evaluation of right axillary lymph node and initiation of reconstructive surgery. 2. The patient has a body mass index of 24.8 kg/sq m. POSTOPERATIVE DIAGNOSES: 1. The patient is a 61-year-old white female with a recently newly diagnosed right breast cancer process in the lower to lower inner aspect of the right breast, which consisted of an approximately 4.5 cm MRI and ultrasound lesion, which consistent intermediate-grade invasive ductal carcinoma, which was 90% ER positive, 90% TX positive, and her2-lizzette negative, and for which the patient was planned for right mastectomy procedure and surgical evaluation of right axillary lymph node and initiation of reconstructive surgery. 2. The patient has a body mass index of 24.8 kg/sq m. PROCEDURES PERFORMED: 1. Right total mastectomy procedure. 2. Right axillary sentinel lymph node mapping and biopsy procedure. 3. Right breast sentinel lymph node injection of 484 microcuries of technetium-99m sulfur label colloid and 0.5 mL of 1% Lymphazurin dye in intradermal fashion in the central lower inner aspect of the right breast. 4. Placement/Insertion of Bennett Bladder Catheter was performed in the operating room, and under sterile conditions (CPT code 92263), and was personal performed by Dr. Stuart Smallwood. ANESTHESIA: General endotracheal anesthesia per Anesthesiology. ESTIMATED BLOOD LOSS: Minimal during my portion of the case. FROZEN SECTIONS: Right axilla sentinel lymph node #1, right axillary sentinel lymph node #2, and right axillary non-sentinel lymph node #1 were all negative for carcinoma on frozen section analysis. DRAINS: To be placed by the [facility] Plastic Surgery Service. INDICATIONS: The patient is currently a 61-year-old white female with a history that I have outlined above. The patient gave informed consent, the patient signed the consent form, and the patient wished to proceed. PROCEDURE AND DESCRIPTIVE FINDINGS: The patient was first met in the pre-surgical area along with her . All questions were answered for the patient and her in the pre-surgical area. In the pre-surgical area, I personally discussed with the patient the appropriate sidedness of her surgery, for which the patient indicated that we were operating on the right side, and for which I placed my initials and the procedure to be performed on the skin of the patient's right upper chest region. I then personally injected the patient's right breast with a total of 484 microcuries of technetium-99m sulfur label colloid in intradermal fashion in the central lower inner aspect of the right breast. The patient was then transported to the operating room, and the patient was placed on the operating room table in supine fashion. The patient underwent general endotracheal anesthesia without difficulty per Anesthesiology. I placed a temperature probe Bennett catheter in the patient. Placement/Insertion of Bennett Bladder Catheter was performed in the operating room, and under sterile conditions (CPT code 99427), and was personal performed by Dr. Stuart Smallwood. We placed lower extremity compression boots on the patient. We placed a lower body Emma Hugger on the patient. We padded all pressure points on the patient very carefully. I then used the Navigator gamma counter to take counts of the primary injection site of the patient's right breast, as well as elsewhere. The primary injection site of the right breast registered 11,227 counts. Transcutaneous counts of the right axilla registered 217 counts. I then injected the patient's right breast with a total of 0.5 mL of 1% Lymphazurin dye in intradermal fashion in the central lower inner aspect of the right breast. The patient's right breast, right chest, right axilla, right shoulder, right arm, left medial chest, and right abdominal region, were all prepped and draped in a sterile fashion, exposing all of these areas in the operative field. The patient's right arm was wrapped with a sterile arm stockinette, as well as a sterile Kerlix, and was placed on a sterile arm board during a portion of the case, and was also placed on a sterile 1 arm universal ether screen during another portion of the case with no undue tension placed on the patient's right shoulder or right axillary region during the procedure and her arm was not out more than 45-60 degrees from her body during the case. I used a black marking pen to draw out a transverse skin ellipse overlying the right central breast region. This transverse skin ellipse drawn out measured approximately 16 cm along its transverse length by 7 cm in widest width. I then incised the previously drawn off transverse skin ellipse overlying the patient's right breast with a 10 blade. I then incised the deep dermis skin with a cutting Bovie. I then used a coagulation Bovie to generate the skin flaps of the right mastectomy site. The skin flap was developed medially to the right lateral border of the sternum, superiorly to the right upper chest region, laterally to the medial undersurface of the right lateral and right posterior lateral chest wall soft tissues, and inferiorly to the right inframammary crease region. The right breast tissue was taken off the right pectoralis major muscle, including the fascia of the right pectoralis major muscle with the right breast specimen, in a superior to inferior direction, as well as in a medial to lateral direction. The attachments of the remainder of the right breast in the right axillary region were divided with the LigaSure device. I then removed the right mastectomy specimen from the surgical bed and placed it up on the surgical field, and marked it with a long black stitch along its lateral aspect and short black stitch along its superior aspect, and placed this in a large specimen container, and sent this to Pathology for permanent pathology and fixation. I then approached the right axilla through the superolateral aspect of the right mastectomy site. I used the Navigator gamma counter to identify the general area of radioactivity within the right axillary tissues. I identified 2 areas of radioactivity within right axillary level 1. I used the LigaSure device to excise fatty tissue containing radioactivity within 2 portions of the right axillary level 1 region. I the fatty tissue away from the radioactive sentinel lymph node candidates and identified a total of 2 right axillary sentinel lymph node candidates which were radioactive. Right axillary sentinel node #1 had 1103 counts ex vivo and had a blue channel going to it. Right sentinel lymph node #2 had 313 counts ex vivo and did not stain blue. Counts remaining in the right axillary base after removing these 2 right axillary sentinel lymph node candidates were less than 5 counts per second. I also identified 1 nonradioactive and non blue lymph node in the right axillary level 1 tissue that was removed. I then sent frozen section analysis on right axillary sentinel lymph node #1, right axillary sentinel lymph node #2, and right axillary non-sentinel lymph node #1. All 3 of these lymph nodes were negative for carcinoma. Therefore, I proceeded no further with the right axilla. Therefore, a completion right axillary lymph node dissection and the remainder of the areas of right axillary level 1 or the right axillary level 2 region or the right axillary level 3 region was not undertaken. I then irrigated out the right mastectomy site in the right axillary region with 5 L of saline solution, tobramycin solution, and Ancef solution. At this point in the case, the sponge and needle counts were correct. During my portion of the case, and during the appropriate intraoperative times, and by the appropriate intraoperative personnel, the sign-in procedure, the time-out procedure, and the sign-out procedure, were performed and were documented in the patient's electronic medical records. At this point in the case, and with the patient in stable condition, Dr. Tyrell Daily of [facility] Plastic Surgery came into the operating room and took over charge of the case, and for which I subsequently left the operating room after all my portions of the case were completed. Dictated By: MD Stuart Meyer MD ATTENDING SPP/MedQ JOB: [id number] DOC: [id number] * Brief Op Note - Stuart Smallwood MD - 04/10/2022 5:35 PM EDT Malia Cook ([id number]) PRE OPERATIVE DIAGNOSIS Malignant neoplasm of lower-inner quadrant of right breast of female, estrogen receptor positive [C50.311, Z17.0] POST OPERATIVE DIAGNOSIS Post-Op Diagnosis Codes: * Malignant neoplasm of lower-inner quadrant of right breast of female, estrogen receptor positive [C50.311, Z17.0] PROCEDURE PERFORMED Procedure(s) (LRB): MASTECTOMY COMPLETE (Right) BX LYMPH NODE AXILLARY DEEP (Right) INJECTION RADIOACTIVE TRACER FOR SENTINEL NODE IDENTIFICATION (Right) PRIMARY CLOSURE Yes INTRAOPERATIVE FINDINGS negative right axillary SLN #1 and #2 SURGEON Surgeon(s) and Role: Panel 1: * Stuart Smallwood MD - Primary ANESTHESIOLOGIST Anesthesiologist: Dionte Guardado MD STACK SUPERVISOR: MARYCARMEN LinoSTACK SUPERVISOR; YORDAN Hwang SURGICAL STAFF Ingot Buggy Operator: Ascencion Del Rio RN; Jackelyn Hunter RN Physician Bridge Worker: Devon Silverio PA-C Relief Ingot Buggy Operator: Nasrin Cramer RN Relief Scrub: Anita Higgins RN; Indy Oneal Scrub Person: George Davis RN; Caitlyn Fernie COMPLICATIONS None ESTIMATED BLOOD LOSS Minimal SPECIMENS see below ID Type Source Tests Collected by Time Destination 1 : Excision of origional skin entrance site, 4 O'clock axis from prior diagnostic right breast ultrasound guided biopsy Permanent SURG PATH SURG PATH REQUEST Stuart Smallwood MD 04/10/2022 0823 2 : Right mastectomy, short stitch= superior, long stitch= lateral Permanent SURG PATH SURG PATH REQUEST Stuart Smallwood MD 04/10/2022 0917 3 : Right axillary sentinel lymph node #1 bisected Frozen SURG PATH SURG PATH REQUEST Stuart Smallwood MD 04/10/2022 0927 4 : Right axillary sentinel lymph node #2 Frozen SURG PATH SURG PATH REQUEST Stuart Smallwood MD 04/10/2022 0940 5 : Right axillary non-sentinel lymph node #1 bisected Frozen SURG PATH SURG PATH REQUEST Stuart Palafox MD 04/10/2022 0945 Stuart Smallwood MD April 10, 2022 5:35 PM * Plan of Care - Devon Silverio PA-C - 04/10/2022 11:57 AM EDT Plastic Surgery Plan of Care Note Malia Cook is a 61 y.o. female POD 0 s/p immediate right breast reconstruction with tissue family practice physician placement. No fluid in family practice physician. Post-op plan: Wound care: Nothing to do. Keep bra in place. Drain care: - MOLLY drain care: please record each MOLLY drain output separately, strip drain(s) every 4 hours, empty every 4 hours or when >50% full. Please record as 0 in the chart if no output in an 8 hour shift. - Please begin MOLLY drain teaching, pt will d/c with drain(s) in place - Please do not remove MOLLY drain(s) without discussing with Plastic Surgery service - MOLLY drain exit sites must be dressed with intact biopatch/tegaderm at all times, replace every 7 days, and prn (Biopatches are available from OR if not kept on floor) - At discharge, please provide patient with extra biopatches and tegaderms for each drain Activity/Showering: ambulate without restictions. No showering with drains in place. Diet/IVF/Labs: per surg onc Antibiotics: ancef Anticipated discharge date 04/11/2022, pending assessment Discharge plan: Wound care: Leave dressing in place. Drain care: - Strip the drains twice daily - Empty the drains twice daily or when they are >50% full - Record drain output on the drain log and bring the drain log to your follow up appointment until all drains are removed. - Keep the drain site clean and dry, sponge bathe if needed. Activity/Showering: ambulate as much as possible. No showering with drains in place Prescriptions: oxy, flexeril and keflex Follow-up: 04/15/2022 * Op Note - Tyrell Daily MD - 04/10/2022 11:29 AM EDT Operative Report DATE PERFORMED: 04/10/22 SERVICE: Plastic Surgery ATTENDING: Tyrell Daily MD ASSISTANTS: ORALIA Thomas, who was the speech language pathologist assistant on this case as no other qualified person was available. The medical research assistant provided exposure, retraction, hemostasis, dissection, and expedited the wound closure. It was not possible to perform this procedure without assistance because the attending surgeon would be unable to adequately and safely visualize the surgical site for dissection,obtain hemostasis, and complete all the necessary steps of the procedure without significantly increasing the time required to complete it and the risk of complications. ANESTHESIA: Dionte Guardado MD PREOPERATIVE DIAGNOSES: Acquired absence of right breast. POSTOPERATIVE DIAGNOSES: Acquired absence of right breast. PROCEDURES PERFORMED: 1. Right pectoralis major muscle repair. 2. Right breast reconstruction with tissue family practice physician. - Purchasing Buyer: [place] - Reference: [id number] - Serial #: [id number] - Intraoperative fill: 0 cc - Fill material: saline INDICATIONS FOR PROCEDURE: This is a patient with the history as outlined above. Based on preoperative evaluation, the plan is to proceed with the first stage of implant-based reconstruction with placement of tissue family practice physician following mastectomy. I saw the patient preoperatively in the clinic as well as preoperatively on the day of surgery. Risks that were discussed include bleeding, infection, hematoma, seroma, wound breakdown, need for further surgery, pain, numbness, weakness, cosmetic deformity, injury to structures, capsular contracture, asymmetry, lymphoma and medical complications. The patient understands the risks, benefits, alternatives, and complications, wishes to proceed, and signed the consent form. PROCEDURE IN DETAIL: The patient was taken to the operating room by the Surgical Oncology team. Please see their operative note for details regarding case set up and the proceedings of their case. When the surgical oncologist had completed their portion of the procedure, I came to the operating room. Upon personal discussion with the surgical oncologist, their portion of procedure had proceeded uneventfully. I then performed a time-out, confirming the patient's identity, procedures to be performed, sites, involved, and drug allergies. This was agreed upon. Antibiotics had been administered prior to startof the Surgical Oncology portion of procedure. I then switched to a new set of instruments, and set down a new set of sterile drapes and also changed the light handle, suction, and Bovie. Elevation in a subpectoral plane was performed with electrocautery. It was noted that the inferomedial and inferior portions of the pectoralis major muscle were attenuated and had become disinserted from the chest wall in a number of areas. It was felt that repair of the pectoralis major muscle wasindicated to restore its anatomic position and function. At this time the edges of the pectoralis ma tawny muscle were sharply tangentially excised back to vascularized edges and the muscle elevated to facilitate the eventual suture repair performed later on in the procedure. A laterally based serratus muscle flap was elevated thereby completing formation of the implant pocket. The breast cavity wascopiously irrigated with sterile saline and hemostasis achieved. The breast cavity was then copiously irrigated with antibiotic irrigation. The skin around the incision was then wiped down with Betadine and a set of sterile towels placed around the incision. I then proceeded to place the tissue family practice physician. All personnel involved changed to new sets of over gloves. I opened the sterile implant package, bathed the implant in triple antibiotic irrigation, evacuated all the air out of it, and then placed it in the total submuscular pocket with the correct orientation using minimal touch technique. Suture tabs were secured to the chest. The pectoralis major muscle was repaired inferiorly and infero laterally with a combination of interrupted and running 2-0 PDS sutures to approximate the previously prepared and elevated muscle edges described earlier. The implant pocket was then closed by approximating the serratus and pectoralis muscles to each other laterally with several 2-0 PDS [id number] sutures. Two 15-Vincentian Tucker drains were placed and each secured to the skin with a 2-0 silk suture. The skin was then closed with 3-0 Monocryl inverted deep dermal simple interrupted sutures followed by a running 3-0 Monocryl subcuticular suture. Lastly, Dermabond was applied, followed eventually by ABD pads and a surgical bra. The patient was then awoken from anesthesia in stable condition. All sponge, instrument, and needle counts were correct at the end of the case. I, Tyrell Daily MD, was scrubbed and present for the entire duration of the procedure with the exception of subcuticular skin closure during which I was immediately available. ANESTHESIA: General. COMPLICATIONS: None. DRAINS: As dictated. ESTIMATED BLOOD LOSS: Minimal. SPECIMENS: None. DISPOSITION: Recovery room in stable condition. * Brief Op Note - Tyrell Daily MD - 04/10/2022 11:29 AM EDT Malia Cook ([id number]) PRE OPERATIVE DIAGNOSIS Malignant neoplasm of lower-inner quadrant of right breast of female, estrogen receptor positive [C50.311, Z17.0] POST OPERATIVE DIAGNOSIS Post-Op Diagnosis Codes: * Malignant neoplasm of lower-inner quadrant of right breast of female, estrogen receptor positive [C50.311, Z17.0] PROCEDURE PERFORMED Procedure(s) (LRB): MASTECTOMY COMPLETE (Right) BX LYMPH NODE AXILLARY DEEP (Right) INJECTION RADIOACTIVE TRACER FOR SENTINEL NODE IDENTIFICATION (Right) LYMPHADENECTOMY AXILLARY DEEP (Right) 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 (Right) PRIMARY CLOSURE Yes INTRAOPERATIVE FINDINGS No significant abnormalities SURGEON Surgeon(s) and Role: Panel 1: * Stuart Smallwood MD - Primary Panel 2: * Tyrell Daily MD - Primary ANESTHESIOLOGIST Anesthesiologist: Dionte Guardado MD STACK SUPERVISOR: Bayron Ac, LEI-STACK SUPERVISOR; Sharlene Brooks APRN-STACK SUPERVISOR SURGICAL STAFF Ingot Buggy Operator: Ascencion Del Rio RN; Jackelyn Hunter RN Physician Bridge Worker: Devon Silverio PA-C Relief Ingot Buggy Operator: Nasrin Cramer RN Relief Scrub: Anita Higgins RN; Indy Oneal Scrub Person: George Davis RN; Caitlyn Enciso COMPLICATIONS None ESTIMATED BLOOD LOSS Minimal SPECIMENS No specimen sent for plastics ID Type Source Tests Collected by Time Destination 1 : Excision of origional skin entrance site, 4 O'clock axis from prior diagnostic right breast ultrasound guided biopsy Permanent SURG PATH SURG PATH REQUEST Stuart Smallwood MD 04/10/2022 0823 2 : Right mastectomy, short stitch= superior, long stitch= lateral Permanent SURG PATH SURG PATH REQUEST Stuart Smallwood MD 04/10/2022 0917 3 : Right axillary sentinel lymph node #1 bisected Frozen SURG PATH SURG PATH REQUEST Stuart Smallwood MD 04/10/2022 0927 4 : Right axillary sentinel lymph node #2 Frozen SURG PATH SURG PATH REQUEST Stuart Smallwood MD 04/10/2022 0940 5 : Right axillary non-sentinel lymph node #1 bisected Frozen SURG PATH SURG PATH REQUEST Stuart Palafox MD 04/10/2022 0945 Tyrell Daily MD April 10, 2022 11:29 AM * Nursing Notes - Nabila House RN - 04/10/2022 9:20 AM EDT 04/10/22 0920 Referral Information Arrived From home or self-care;operating room Final Discharge Planning Discharge Disposition Home Services at Discharge Outpatient wound/drain/ostomy care Transport Request Mode of Transfer private vehicle Accompanied By unknown Medical record reviewed. Patient is a 61 y.o. female with history of breast cancer. She is having surgery today- bilateral mastectomy with tissue family practice physician reconstruction. Would anticipate discharge home tomorrow from ERU bed as medically indicated. No LITA needs known at this time. See AVS for follow up appointment detail and discharge instructions. For discharge planning assistance during evening and weekend hours, please page the rn transition [facility] [phone]. documented in this encounterOS[facility] [id number] Note* Nursing Notes - Ragini Galvez RN - 04/11/2022 8:16 AM EDT Patient provided AVS, supplies for drain care. Educated patient on drain care and needs. Will demonstrate to SO when he arrives. Patient states that sister is staying with her to care for the drains and she was taught in the clinic. Ragini Galvez RN [facility]08-13-2022 History of Present illness Narrative* Vandana Hui MD - 04/11/2022 8:07 AM EDT Plastic Surgery Daily Progress Note Assessment/Plan Malia Cook is a 61 y.o. 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 Wound care: Nothing to do. Keep bra in place. Drain care: MOLLY drain care: please record each MOLLY drain output separately, strip drain(s) every 4 hours, empty every 4 hours or when >50% full. Please record as 0 in the chart if no output in an 8 hour shift. - Please begin MOLLY drain teaching, pt will d/c with drain(s) in place - Please do not remove MOLLY drain(s) without discussing with Plastic Surgery service - MOLLY drain exit sites must be dressed with intact biopatch/tegaderm at all times, replace every 7 days, and prn (Biopatches are available from OR if not kept on floor) - At discharge, please provide patient with extra biopatches and tegaderms for each drain Activity/Showering: ambulate without restictions. No showering with drains in place. Diet/IVF/Labs: per surg onc Antibiotics: ancef Discharge today per Surg Onc Discharge /Prescriptions: Oxy, Flexeril, and Keflex Follow Up: 04/15/22 Last 24 Hours: No acute events overnight. Pain controlled with medications. Ambulating. Using incentive spirometer. Tolerating diet. Feels ready to go be discharged home today. Physical Exam BP 127/68 (BP Location: Left arm, BP Position: Lying) Pulse 80 Temp 97.9 F (36.6 C) (Oral) Resp 14 Ht 1.613 m (5' 3.5 ) Wt 64.1 kg (141 lb 4.8 oz) SpO2 95% BMI 24.64 kg/m Smoking Status Never Smoker General: Alert and oriented, no acute distress Pulmonary: Non labored breathing, no respiratory distress Cardio: RRR Chest: right chest incision clean, dry, intact, no fluid collection, no bruising, appropriately tender Abdomen: soft, nondistended Extremities: warm and well perfused, wearing SCDs MOLLY drains holding suction, with serosanguinous drainage Laboratory Studies & Objective Data Temp: [97.5 F (36.4 C)-98.1 F (36.7 C)] 97.9 F (36.6 C) Pulse (Heart Rate): [64-93] 80 Resp Rate: [13-31] 14 BP: (111-150)/(60-89) 127/68 O2 Sat (%): [93 %-100 %] 95 % Oxygen Therapy O2 Sat (%): 95 % O2 Device: room air Flow (L/min): 2 Fluid Management (24hrs): Intake/Output last 3 shifts: I/O last 3 completed shifts: In: 1332.6 [I.V.:1332.6] Out: 1915 [Urine:1625; Other:290] JP1: 210 JP2: 50 Vandana Hui MD * Ashlee Mayberry MD - 04/10/2022 2:34 PM EDT Surgical Oncology Post Op Check Malia Cook is a 61 y.o. 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 There were no complications to the procedure, and she tolerated it well. Subjective: Resting in bed, reports nausea is controlled with medications as ordered, reports pain is controlled with current multimodal therapy. Is very tired after surgery. Four family members are at the bedside and have no questions or concerns at this time. Objective: Temp: [97.5 F (36.4 C)-97.9 F (36.6 C)] 97.7 F (36.5 C) Pulse (Heart Rate): [75-93] 79 Resp Rate: [13-31] 18 BP: (120-150)/(60-89) 144/77 O2 Sat (%): [93 %-100 %] 96 % Weight: [64.1 kg (141 lb 4.8 oz)] 64.1 kg (141 lb 4.8 oz) Body mass index is 24.64 kg/m . Exam: General: laying in bed comfrotably, awake and alert, oriented, in no acute distress Respiratory: equal chest rise, non-labored breathing, no respiratory distress Chest: right breast incision clean and dry, well approximated, covered with abd and bra. Two MOLLY drains with sanguinous output. Cardio: regular rate and rhythm on continuous telemetry monitoring Abdomen: soft, appropriately tender post op, non-distended Vascular: upper and lower extremities warm to touch, 2+ radial pulses bilaterally Assessment/Plan: Malia Cook is a 61 y.o. 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 She is recovering well post-operatively. Post operative orders have been reviewed. Post op diet plans: CLD then advance to Regular diet Pain Control: Tylenol/Ibuprofen/Flexeril/Oxycodone DVT Prophylaxis: no chemoprophylaxis, encourage ambulation Activity: as tolerated Encourage incentive spirometer and OOB. Ashlee Mayberry MD, 04/10/2022 2:34 PM PGY-1, Plastic and Reconstructive Surgery Pager [phone] * Huong Mercado MD - 04/10/2022 2:04 PM EDT Plastic Surgery Post Op Check Malia Cook is a 61 y.o. female POD 0 s/p immediate right breast reconstruction with tissue family practice physician placement. No fluid in family practice physician. Subjective: Patient seen and examined on the floor. Doing well. Pain 5/10 from moving to room bed but controlled. No chest pain or SOB. No nausea/vomiting. No concerns at this time. BP 144/77 (BP Location: Left arm, BP Position: Lying) Pulse 79 Temp 97.7 F (36.5 C) (Oral) Resp 18 Ht 1.613 m (5' 3.5 ) Wt 64.1 kg (141 lb 4.8 oz) SpO2 96% BMI 24.64 kg/m Smoking Status Never Smoker GEN: laying in bed in NAD RESP: Breathing well on RA CHEST: R breast incision C/D/I, no fluid collection, no bruising, appropriately tender ABD: soft, non distended, nontender EXT: warm and well perfused, wearing SCDs DRAINS: JPx2 holding suction with appropriate sanguinous output Assessment/Plan: Doing well. Continue post-operative care as outlined in plan of care note. Huong Mercado MD documented in this [facility]08-13-2022 Hospital course Narrative* Antonio Hahn MD, PhD - 04/11/2022 7:30 AM EDT Discharge Summary Name: Malia Cook Age: 61 y.o. Birthday: 1960 Admit Date: 04/10/2022 4:53 AM Discharge Date: 04/11 Discharge Time: am Discharge Unit: [address] [place] [address] Admission Information Admitting Physician: Stuart Smallwood MD Discharge Information Discharge Physician: Dr. Smallwood Problem List Active Hospital Problems Diagnosis Malignant neoplasm of lower-inner quadrant of right breast of female, estrogen receptor positive Resolved Hospital Problems No resolved problems to display. 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 Smallwood and Dr. Daily. She tolerated the procedure well and there were no complications. After surgery she was admitted to the floor for observation overnight. Her Bennett was removed and she voided spontaneously. Her pain was controlled on oral medications and she ambulated independently.Her diet was advanced to a clear liquid diet, then to a regular diet as tolerated. On the day of discharge an OARRS report was reviewed. The patient was discharged on 04/11 to home with follow up withDr. Smallwood and Dr. Daily. Brief Summary of Consults for Discharge Summary: Brief Summary of Procedures and Imaging for Discharge Summary: Summary of last selected lab results and date obtained: Lab Results Component Value Date WBC 4.76 04/01/2022 HGB 12.3 04/01/2022 HCT 37.3 04/01/2022 PLATELET 214 04/01/2022 MCV 97.4 04/01/2022 Lab Results Component Value Date SODIUM 139 04/01/2022 POTASSIUM 3.8 04/01/2022 CHLORIDE 103 04/01/2022 CO2 29 04/01/2022 BUN 14 04/01/2022 CREATSERUM 0.82 04/01/2022 GLUCOSE 94 04/01/2022 Lab Results Component Value Date ALT 23 04/01/2022 AST 22 04/01/2022 ALKPHOS 90 04/01/2022 BILITOTAL 0.3 04/01/2022 BILIDIRECT 0.1 02/24/2022 Brief Summary of Labs for Discharge Summary: No discharge procedures on file. Current Outpatient Meds: Medication List for when you go home START taking these medications acetaminophen 325 MG tablet Take 3 tablets by mouth every 8 hours for 5 days. Commonly known as: TYLENOL cephALEXin 500 MG CAPS Take 2 capsules by mouth 2 times daily for 14 days. Commonly known as: KEFLEX cyclobenzaprine 10 MG TABS Take 1 tablet by mouth every 6 hours as needed for Other (Muscle cramping or pain, use prior to opioids.) for up to 5 days. Commonly known as: FLEXERIL docusate 100 MG CAPS Take 1 capsule by mouth 2 times daily for 7 days. Commonly known as: COLACE ibuprofen 600 MG TABS Take 1 tablet by mouth every 8 hours for 5 days. Commonly known as: MOTRIN oxyCODONE 5 MG TABS Take 1 tablet by mouth every 6 hours as needed for Moderate Pain for up to 7 days. Commonly known as: ROXICODONE For diagnoses: Malignant neoplasm of lower-inner quadrant of right breast of female, estrogen receptor positive CONTINUE taking these medications Albuterol Sulfate 108 (90 Base) MCG/ACT AEPB Inhale. Prn Breztri Aerosphere 160-9-4.8 MCG/ACT AERO inhaler INHALE 2 PUFFS BY MOUTH TWICE DAILY Generic drug: meekhjdrta-dteaqvifykelxp-Iqbnltulpy esomeprazole [address] capsule Take 20 mg by mouth every morning before breakfast. Commonly known as: NEXIUM furOSEmide 20 MG TABS Take 20 mg by mouth daily. Commonly known as: LASIX MAGNESIUM OXIDE PO Take by mouth. meloxicam 15 MG TABS Commonly known as: MOBIC Synthroid 50 MCG TABS Generic drug: levothyroxine Follow-up: No follow-up provider specified. Upcoming Appointments (up to five)-Some appointments for Medical Center outpatient clinics or diagnostic testing locations are not displayed below Provider Department Dept Phone 04/15/2022 12:30 PM Stuart Smallwood Division of Surgical Oncology Arrive at: Arrive to First Floor Registration Desk [phone] 04/15/2022 12:45 PM Tyrell Daily Department of Plastic Surgery Arrive at: Arrive to First Floor Registration Desk [phone] 05/06/2022 8:30 AM Mel Giron Medical Oncology at [facility] Arrive at: Arrive to First Floor Registration Desk [phone] [facility]* Nursing Notes - Ragini Galvez RN - 04/11/2022 7:10 AM EDT Patient urinated and states it was a good amount. Missed the hat. Ragini Galvez RN [facility]08-13-2022 Note* Nursing Notes - Lilly Funez RN - 04/11/2022 4:45 AM EDT Bennett removed per order by this RN. Patient tolerated the procedure well. Balloon intact and 10mL of saline was removed from the balloon. [facility]08-12-2022 Note* Op Note - Stuart Smallwood MD - 04/10/2022 5:47 PM EDT Operative Report DATE PERFORMED: 04/11/2022 SURGEON(S): Stuart Smallwood MD (staff attending surgeon). Dr. Smallwood was present for the entire portion of the case performed by the [facility] Breast Surgical Oncology Service. PREOPERATIVE DIAGNOSES: 1. The patient is a 61-year-old white female with a recently newly diagnosed right breast cancer process in the lower to lower inner aspect of the right breast, which consisted of an approximately 4.5 cm MRI and ultrasound lesion, which was consistent with an intermediate-grade invasive ductal carcinoma, which was 90% ER positive, 90% TX positive, and her2-lizzette negative, and for which the patient was planned for right mastectomy procedure and surgical evaluation of right axillary lymph node and initiation of reconstructive surgery. 2. The patient has a body mass index of 24.8 kg/sq m. POSTOPERATIVE DIAGNOSES: 1. The patient is a 61-year-old white female with a recently newly diagnosed right breast cancer process in the lower to lower inner aspect of the right breast, which consisted of an approximately 4.5 cm MRI and ultrasound lesion, which consistent intermediate-grade invasive ductal carcinoma, which was 90% ER positive, 90% TX positive, and her2-lizzette negative, and for which the patient was planned for right mastectomy procedure and surgical evaluation of right axillary lymph node and initiation of reconstructive surgery. 2. The patient has a body mass index of 24.8 kg/sq m. PROCEDURES PERFORMED: 1. Right total mastectomy procedure. 2. Right axillary sentinel lymph node mapping and biopsy procedure. 3. Right breast sentinel lymph node injection of 484 microcuries of technetium-99m sulfur label colloid and 0.5 mL of 1% Lymphazurin dye in intradermal fashion in the central lower inner aspect of the right breast. 4. Placement/Insertion of Bennett Bladder Catheter was performed in the operating room, and under sterile conditions (CPT code 68134), and was personal performed by Dr. Stuart Smallwood. ANESTHESIA: General endotracheal anesthesia per Anesthesiology. ESTIMATED BLOOD LOSS: Minimal during my portion of the case. FROZEN SECTIONS: Right axilla sentinel lymph node #1, right axillary sentinel lymph node #2, and right axillary non-sentinel lymph node #1 were all negative for carcinoma on frozen section analysis. DRAINS: To be placed by the [facility] Plastic Surgery Service. INDICATIONS: The patient is currently a 61-year-old white female with a history that I have outlined above. The patient gave informed consent, the patient signed the consent form, and the patient wished to proceed. PROCEDURE AND DESCRIPTIVE FINDINGS: The patient was first met in the pre-surgical area along with her . All questions were answered for the patient and her in the pre-surgical area. In the pre-surgical area, I personally discussed with the patient the appropriate sidedness of her surgery, for which the patient indicated that we were operating on the right side, and for which I placed my initials and the procedure to be performed on the skin of the patient's right upper chest region. I then personally injected the patient's right breast with a total of 484 microcuries of technetium-99m sulfur label colloid in intradermal fashion in the central lower inner aspect of the right breast. The patient was then transported to the operating room, and the patient was placed on the operating room table in supine fashion. The patient underwent general endotracheal anesthesia without difficulty per Anesthesiology. I placed a temperature probe Bennett catheter in the patient. Placement/Insertion of Bennett Bladder Catheter was performed in the operating room, and under sterile conditions (CPT code 38489), and was personal performed by Dr. Stuart Smallwood. We placed lower extremity compression boots on the patient. We placed a lower body Emma Hugger on the patient. We padded all pressure points on the patient very carefully. I then used the Navigator gamma counter to take counts of the primary injection site of the patient's right breast, as well as elsewhere. The primary injection site of the right breast registered 11,227 counts. Transcutaneous counts of the right axilla registered 217 counts. I then injected the patient's right breast with a total of 0.5 mL of 1% Lymphazurin dye in intradermal fashion in the central lower inner aspect of the right breast. The patient's right breast, right chest, right axilla, right shoulder, right arm, left medial chest, and right abdominal region, were all prepped and draped in a sterile fashion, exposing all of these areas in the operative field. The patient's right arm was wrapped with a sterile arm stockinette, as well as a sterile Kerlix, and was placed on a sterile arm board during a portion of the case, and was also placed on a sterile 1 arm universal ether screen during another portion of the case with no undue tension placed on the patient's right shoulder or right axillary region during the procedure and her arm was not out more than 45-60 degrees from her body during the case. I used a black marking pen to draw out a transverse skin ellipse overlying the right central breast region. This transverse skin ellipse drawn out measured approximately 16 cm along its transverse length by 7 cm in widest width. I then incised the previously drawn off transverse skin ellipse overlying the patient's right breast with a 10 blade. I then incised the deep dermis skin with a cutting Bovie. I then used a coagulation Bovie to generate the skin flaps of the right mastectomy site. The skin flap was developed medially to the right lateral border of the sternum, superiorly to the right upper chest region, laterally to the medial undersurface of the right lateral and right posterior lateral chest wall soft tissues, and inferiorly to the right inframammary crease region. The right breast tissue was taken off the right pectoralis major muscle, including the fascia of the right pectoralis major muscle with the right breast specimen, in a superior to inferior direction, as well as in a medial to lateral direction. The attachments of the remainder of the right breast in the right axillary region were divided with the LigaSure device. I then removed the right mastectomy specimen from the surgical bed and placed it up on the surgical field, and marked it with a long black stitch along its lateral aspect and short black stitch along its superior aspect, and placed this in a large specimen container, and sent this to Pathology for permanent pathology and fixation. I then approached the right axilla through the superolateral aspect of the right mastectomy site. I used the Navigator gamma counter to identify the general area of radioactivity within the right axillary tissues. I identified 2 areas of radioactivity within right axillary level 1. I used the LigaSure device to excise fatty tissue containing radioactivity within 2 portions of the right axillary level 1 region. I the fatty tissue away from the radioactive sentinel lymph node candidates and identified a total of 2 right axillary sentinel lymph node candidates which were radioactive. Right axillary sentinel node #1 had 1103 counts ex vivo and had a blue channel going to it. Right sentinel lymph node #2 had 313 counts ex vivo and did not stain blue. Counts remaining in the right axillary base after removing these 2 right axillary sentinel lymph node candidates were less than 5 counts per second. I also identified 1 nonradioactive and non blue lymph node in the right axillary level 1 tissue that was removed. I then sent frozen section analysis on right axillary sentinel lymph node #1, right axillary sentinel lymph node #2, and right axillary non-sentinel lymph node #1. All 3 of these lymph nodes were negative for carcinoma. Therefore, I proceeded no further with the right axilla. Therefore, a completion right axillary lymph node dissection and the remainder of the areas of right axillary level 1 or the right axillary level 2 region or the right axillary level 3 region was not undertaken. I then irrigated out the right mastectomy site in the right axillary region with 5 L of saline solution, tobramycin solution, and Ancef solution. At this point in the case, the sponge and needle counts were correct. During my portion of the case, and during the appropriate intraoperative times, and by the appropriate intraoperative personnel, the sign-in procedure, the time-out procedure, and the sign-out procedure, were performed and were documented in the patient's electronic medical records. At this point in the case, and with the patient in stable condition, Dr. Tyrell Daily of [facility] Plastic Surgery came into the operating room and took over charge of the case, and for which I subsequently left the operating room after all my portions of the case were completed. Dictated By: MD Stuart Meyer MD ATTENDING SPP/MedQ JOB: [id number] DOC: [id number] [facility] Work Phone: [phone]) 439-325308-12-2022 Note* Brief Op Note - Stuart Smallwood MD - 04/10/2022 5:35 PM EDT Malia Cook ([id number]) PRE OPERATIVE DIAGNOSIS Malignant neoplasm of lower-inner quadrant of right breast of female, estrogen receptor positive [C50.311, Z17.0] POST OPERATIVE DIAGNOSIS Post-Op Diagnosis Codes: * Malignant neoplasm of lower-inner quadrant of right breast of female, estrogen receptor positive [C50.311, Z17.0] PROCEDURE PERFORMED Procedure(s) (LRB): MASTECTOMY COMPLETE (Right) BX LYMPH NODE AXILLARY DEEP (Right) INJECTION RADIOACTIVE TRACER FOR SENTINEL NODE IDENTIFICATION (Right) PRIMARY CLOSURE Yes INTRAOPERATIVE FINDINGS negative right axillary SLN #1 and #2 SURGEON Surgeon(s) and Role: Panel 1: * Stuart Smallwood MD - Primary ANESTHESIOLOGIST Anesthesiologist: Dionte Guardado MD STACK SUPERVISOR: Bayron Ac, PAPER WOOD CUTTER-STACK SUPERVISOR; Sharlene Brooks PAPER WOOD CUTTER-STACK SUPERVISOR SURGICAL STAFF Ingot Buggy Operator: Ascencion Del Rio RN; Jackelyn Hunter RN Physician Bridge Worker: Devon Silverio PA-C Relief Ingot Buggy Operator: Nasrin Cramer RN Relief Scrub: Anita Higgins RN; Indy Oneal Scrub Person: George Davis RN; Caitlyn Enciso COMPLICATIONS None ESTIMATED BLOOD LOSS Minimal SPECIMENS see below ID Type Source Tests Collected by Time Destination 1 : Excision of origional skin entrance site, 4 O'clock axis from prior diagnostic right breast ultrasound guided biopsy Permanent SURG PATH SURG PATH REQUEST Stuart Smallwood MD 04/10/2022 0823 2 : Right mastectomy, short stitch= superior, long stitch= lateral Permanent SURG PATH SURG PATH REQUEST Stuart Smallwood MD 04/10/2022 0917 3 : Right axillary sentinel lymph node #1 bisected Frozen SURG PATH SURG PATH REQUEST Stuart Smallwood MD 04/10/2022 0927 4 : Right axillary sentinel lymph node #2 Frozen SURG PATH SURG PATH REQUEST Stuart Smallwood MD 04/10/2022 0940 5 : Right axillary non-sentinel lymph node #1 bisected Frozen SURG PATH SURG PATH REQUEST Stuart Palafox MD 04/10/2022 0945 Stuart Smallwood MD April 10, 2022 5:35 PM [facility]08-12-2022 Hospital Discharge instructions* Discharge Instructions* Nabila House RN - 04/10/2022 1:20 PM EDT Your providers are: Dr. Smallwood (phone: [phone]) and Dr. Daily ([phone]) During office hours, Wednesday through Wednesday, 8:00 AM to 4:30 PM, call the office if you have any questions or concerns. After hours, weekends and holidays call the office number and you will be transferred to the After Hours Nurse Line. Call 911 for Emergencies. If you are unable to attend appointments that have been arranged for you, it is your responsibilityto call to reschedule at least 48 hours prior to the appointment date. Your After Visit Summary (AVS) has provided you with instructions for your discharge. It is your responsibility to ask questions if you have any. Please contact your medical care team at the numbers listed if you should have any additional questions. WHEN TO CALL THE DOCTOR? Bleeding that will not stop with pressure applied to the site Increase in pain in or around wound Change in the amount, color, or odor of drainage from your wound Redness, swelling or increased warmth around your wound Temperature greater than 100.4? F Incision separates/opens up Increasing or unrelieved pain while taking maximum dose of prescribed pain medication Persistent nausea and vomiting Inability to take medication without vomiting Inability to keep 8 oz. of fluids every 2 hours down When to call the doctor about your drains: Call your doctor right away if you have any of the following: The drain tubing pulls out of your skin. Your drain tube become detached from the drainage bulb Redness, swelling, or unusual drainage where the tube comes out of the skin Drainage that becomes milky, cloudy or smells bad, Drainage color changes from a light color and has become bloody or bright red in color. Drainage smell has changed. Drainage has pus. A sudden increase in the amount of drainage (more than 40 mLs) Any new or increased pain at the drain sites Clots or clogs in the tubing that you are unable to clear by stripping Little or no drainage in the drain and fluid is leaking where the tube comes out of your skin Your drain will not stay pressed together after you have emptied it Skin irritation, redness or blistering from the tape over your dressing CALL 911 if you have: Tender, swollen or reddened areas anywhere in your leg. Numbness or tingling in your lower leg or calf, or at the top of your leg or groin Skin on your leg looks pale or blue or feels cold to touch Chest pain or have trouble breathing CARE WHEN YOU GET HOME The first 1-2 days at home Rest quietly at home Have another adult with you for the first 6 hours Set up a schedule to take your medications and do wound and drain care You may have sore throat, jaw discomfort or muscle aches from anesthesia for surgery Do not drink alcoholic beverages Do not sign legal paperwork or make important decisions After General Anesthesia If you had general, monitored, or regional anesthesia, rest for [address], drink alcoholic beverages, or make important decisions during this time. General anesthesia may cause a sore throat, jaw discomfort or muscle aches. These symptoms can last for one or two days. MEDICATIONS AT HOME Resume pre-surgery medications as directed by your doctor. Pain Medications at Home You will be given medications to manage pain at home. Your provider may have asked you to keep a pain management log. If so, please fill it for two weeks or until your first post-operative appointment. If You Are Prescribed Acetaminophen and Ibuprofen - Alternate Taking These Medications: Do not take them at the same time. Acetaminophen 975 mg by mouth should be taken every 8 hours ALTERNATING with doses of Ibuprofen 400-600 mg by mouth every 8 hours. Ibuprofen is easier to take on a full stomach. Other pain medication (such as Oxycodone or Tramadol) are taken ONLY if the Acetaminophen and Ibuprofen are not controlling your pain. Here is an example of a schedule to follow for the first 5 days after surgery: 8:00 am: Take Ibuprofen 400-600 mg by mouth after eating 12:00 pm: Take Acetaminophen 975 mg by mouth 4:00 pm: Take Ibuprofen 400-600 mg by mouth after eating 8:00 pm: Take Acetaminophen 975 mg by mouth 12:00 am: Take Ibuprofen 400-600 mg by mouth after eating 4:00 am: Take Acetaminophen 975 mg by mouth (*take only if you are unable to sleep or concerned youwill wake up in pain) Five days after surgery do not take these medications at a scheduled time each day, instead, begin taking Ibuprofen and Acetaminophen only when you need it. Remember, do not take more than 3,000 mg of Acetaminophen in 24 hours. Opioid medications are taken ONLY if the Acetaminophen and Ibuprofen are not controlling your pain. Pain medication reminders: Do not drive or drink alcoholic beverages after taking opioid pain medication such as Oxycodone Take each dose of opioids or Ibuprofen with food or milk Keep medications out of reach of children and pets If you were given a nerve block to control pain and or a teal wristband, please note your block will wear off in 2-3 day and your pain may increase a bit after it wears off. Take the pain medicationsgiven to you by your provider to control pain. Prevent constipation Follow the instructions on the attached Constipation and Opioid (Pain Medication) Use Sheet Prior to discharge, you may be given prescriptions for stool softeners and laxatives that can be purchased over the counter at your local pharmacy. DIET Resume the diet you were on before surgery Eat three servings of protein a day and drink 12 (8 ounce) glasses of water a day to help your wound heal ACTIVITY AND BATHING Elevate the arm on the same side as your surgery on a pillow when sitting and at night for at leastone week after surgery You may walk short distances and around home. YOU NOT RESUME SHOWERING until instructed by Dr. Daily. Sponge bathe only until directed. This is usually 48 hours after removal of the last drain. You may use your arm on the same side as your surgery to eat, comb hair, and do light activities (such as folding laundry in your lap) unless instructed otherwise by your physician. You may resume sexual activity avoiding pressure on the arm Use an arm sling if instructed to do so by Dr. Smallwood Until your physician gives you permission to do so: Do not raise the arm on the same side as your surgery more than a 90 degreee angle away from your body unless instructed otherwise by your physician Do not bend at the waist or have your head lower than your heart Do not resume exercise until approved by your physician. Avoid sudden movements such as bouncing, jumping jacks, etc. Do not lift more than 2 pounds. Do not push or pull forcefully. For example, do not vacuum, perform house cleaning, or push a lawnmower Do not drive - your provider will discuss when you can begin to drive at your post-operative appointment visits. Your provider will usually allow you to start driving when drains are out, and you arenot taking any sedating or opioid medications. You may shower when your surgeon feels you are ready. Depending on your surgeon's instructions takea daily sponge bath or shower, starting on the post- operative day that is specified. To follow activity restrictions, you may need someone to help you with bathing. You may not soak or submerge your incision or drain site in a pool, tub, or body of water CLOTHING If recommended by your surgeon, wear your sport or surgical bra at all times. Do not insert a soft grease cup filler in the bra until your physician gives you permission. Wear a loose shirt over the bra,with a button front if possible, until your physician removes your drains. Pin drains to the shirt to avoid tugging. When comfortable for you and approved by your provider, you may use a mastectomy bra with a soft insert prosthesis. If applicable, and you had a mastectomy without reconstruction, you will be given a prescription for a permanent prosthesis and prosthetic bra in several weeks after surgery and you are completely healed. When you receive this prescription make an appointment at [employer] or the shop of your choice to be fitted for a prosthesis and post mastectomy clothing such as bras, swimsuits, etc. You may also purchase items online, one source is: https://prnlo-zuhrwtpf-tep.[facility].net/ If your surgeon does not wish for you to wear a surgical bra, wear a loose shirt without a bra, with a button front if possible until your physician removes your drains and allows you to wear a bra or loose camisole. Pin drains to the shirt to avoid tugging. CARE FOR YOU WOUNDS/INCISIONS Your wound dressing should remain dry and remain in place until the time your provider asks you to remove it. Incision dressing and care If your surgical incision is closed with Steri-Strips: These need to be kept dry and in place for 7 to 10 days. Do not soak your incision or take a tub bath until your incision is healed. When you are instructed to resume showering; after your shower, pat the strips dry. It is okay if strips start to fall off in 48 hours. You may remove any strips left after 10 days. If your surgical incision is closed with Dermabond (adhesive): It will remain in place for up to 2 to 3 weeks and it will wear off (peel off) naturally. Do not scratch, rub, or pick at the transparent film skin closure; if you do, the transparent film skin closure may become loose before your surgical incision site is fully healed. Keep your surgical incision site dry for 48 hours after surgery. When you are instructed to resume showering; keep front of body turned away from shower spray and allow water to stream gently over chest. If you are directed to use Nitroglycerine Ointment to after your surgery, follow the directions found on the Nitroglycerine Ointment After Breast Cancer Surgery Sheet - your nurse will fill in the blanks on this sheet CARE FOR YOUR TUBES/DRAINS Your drain insertion sites will either be covered with a gauze dressing that will need to be changed every day or a Biopatch with Tegaderm dressing that will need to be changed every 7 days. Your bedside nurse will review how to take care of the drains including drain stripping, measuring and the drain site dressing changes prior to discharge. Remember to: Strip drains at least twice daily. Empty the drains twice a day or when more than 50 percent (half) full. Record output on the drain log in milliliters. Record each drain separately. Bring the record of your drainage to your follow up appointment Drain removal will be addressed at your post-operative appointment Resources and Support Support Group for breast cancer survivors: There is a monthly support group for breast cancer survivors and their loved ones. It is virtual. To sign up, call or see https://cancer.osu.e du/patient-support/ygbtovczjp-nlz-xihiohl Attending educational class with other cancer survivors and their caregivers can be very helpful after surgery. For more information about our free classes and support groups call or see https://cancer.osu.edu/patient-support/beomcobasu-eol-otztlgp Reputable websites National Cancer [place]: https://www.cancer.gov/ Lorraine Komen Foundation: https://ww5.komen.org/ Support organizations of interest to people with breast cancer Reach to Recovery: https://www.cancer.org/treatment/ewbbwyj-caxjzaik-nsp-services/kgase-ee-zxkndqvd .html Living beyond breast cancer: https://www.lbbc.org/ Young Survival Coalition: https://www.youngsurvival.org/ [employer] Foundation: https://www.[facility].org/ Cancer Support Community: https://www.cancersupportcom[facility].org/ If you need support talking to your children or grandchildren about your diagnosis, please refer to: This explanation by psychologist on how to tell your children or grandchildren: https://www.[employer].com/watch?v=1dgghO3W1uG&feature=youtu.be This video for children to explain the cancer diagnosis: https://www.[employer].com/watch?v=5DTYSnvmecA&feature=youtu.be This website which coaches you through how to tell your children: http://www.SanteVet.[employer]/ * Attachments The following attachments cannot be sent through Care Everywhere. * Constipation and Pain Medicine (Katy Cid) (Angolan) * Transparent Dressing and Biopatch: How to Change (Katy Cid) (Angolan) * Breast Reconstruction Drain Care (Katy Cid) (Angolan) documented in this [facility]08-12-2022 Note* Plan of Care - Devon Silverio PA-C - 04/10/2022 11:57 AM EDT Plastic Surgery Plan of Care Note Malia Cook is a 61 y.o. female POD 0 s/p immediate right breast reconstruction with tissue family practice physician placement. No fluid in family practice physician. Post-op plan: Wound care: Nothing to do. Keep bra in place. Drain care: - MOLLY drain care: please record each MOLLY drain output separately, strip drain(s) every 4 hours, empty every 4 hours or when >50% full. Please record as 0 in the chart if no output in an 8 hour shift. - Please begin MOLLY drain teaching, pt will d/c with drain(s) in place - Please do not remove MOLLY drain(s) without discussing with Plastic Surgery service - MOLLY drain exit sites must be dressed with intact biopatch/tegaderm at all times, replace every 7 days, and prn (Biopatches are available from OR if not kept on floor) - At discharge, please provide patient with extra biopatches and tegaderms for each drain Activity/Showering: ambulate without restictions. No showering with drains in place. Diet/IVF/Labs: per surg onc Antibiotics: ancef Anticipated discharge date 04/11/2022, pending assessment Discharge plan: Wound care: Leave dressing in place. Drain care: - Strip the drains twice daily - Empty the drains twice daily or when they are >50% full - Record drain output on the drain log and bring the drain log to your follow up appointment until all drains are removed. - Keep the drain site clean and dry, sponge bathe if needed. Activity/Showering: ambulate as much as possible. No showering with drains in place Prescriptions: oxy, flexeril and keflex Follow-up: 04/15/2022 [facility] Work Phone: 1(875) 826-698108-12-2022 Nurse Surgical operation note* Lizzeth Marie RN - 04/10/2022 11:48 AM EDT 1153: Patient arrives in [facility] PACU from OR via gurney with side rails up x2 with HOB >30 degrees, accompanied by Anesthesiologist: Dionte Guardado MD, STACK SUPERVISOR: Bayron Ac APRN-STACK SUPERVISOR; Sharlene Brooks APRN-MICHELE. Patient placed on monitors, VSS. Report received from anesthesia. Patient assessed, see assessment. 1250: Paged Dr. Guardado for sign out. 1258: Sign out received. 1311: Attempted to call report to [facility]. Call-back number given. 1331: Report given to Rosaura Lopez RN. 1343: Pt transported to [facility] via cart x2 side rails. [facility]08-12-2022 Nurse Note* Lizzeth Marie RN - 04/10/2022 11:48 AM EDT 1153: Patient arrives in [facility] PACU from OR via gurney with side rails up x2 with HOB >30 degrees, accompanied by Anesthesiologist: Dionte Guardado MD, STACK SUPERVISOR: Bayron Ac, PAPER WOOD CUTTER-STACK SUPERVISOR; Sharlene Brooks APRN-STACK SUPERVISOR. Patient placed on monitors, VSS. Report received from anesthesia. Patient assessed, see assessment. 1250: Paged Dr. Guardado for sign out. 1258: Sign out received. 1311: Attempted to call report to [facility]. Call-back number given. 1331: Report given to Rosaura Lopez RN. 1343: Pt transported to [facility] via cart x2 side rails. * Jackelyn Hunter RN - 04/10/2022 8:45 AM EDT 0827 Family notified of surgery start 1010 Family updated 1121 Hand-off report sent to PACU charge nurse 1134 PACU given notice of arrival 1151 Patient extubated and transported to PACU with anesthesia at bedside on oxygen inhalation. * Gertrudis Swartz RN - 04/10/2022 5:28 AM EDT Patient denies hx of chemo and radiation. Patient denies metal or foreign objects in body, except Rheel replacement. Patient denies hx of seizure or stroke. [facility]* Op Note - Tyrell Daily MD - 04/10/2022 11:29 AM EDT Operative Report DATE PERFORMED: 04/10/22 SERVICE: Plastic Surgery ATTENDING: Tyrell Daily MD ASSISTANTS: ORALIA Thomas, who was the speech language pathologist assistant on this case as no other qualified person was available. The medical research assistant provided exposure, retraction, hemostasis, dissection, and expedited the wound closure. It was not possible to perform this procedure without assistance because the attending surgeon would be unable to adequately and safely visualize the surgical site for dissection,obtain hemostasis, and complete all the necessary steps of the procedure without significantly increasing the time required to complete it and the risk of complications. ANESTHESIA: Dionte Guardado MD PREOPERATIVE DIAGNOSES: Acquired absence of right breast. POSTOPERATIVE DIAGNOSES: Acquired absence of right breast. PROCEDURES PERFORMED: 1. Right pectoralis major muscle repair. 2. Right breast reconstruction with tissue family practice physician. - Purchasing Buyer: [place] - Reference: [id number] - Serial #: [id number] - Intraoperative fill: 0 cc - Fill material: saline INDICATIONS FOR PROCEDURE: This is a patient with the history as outlined above. Based on preoperative evaluation, the plan is to proceed with the first stage of implant-based reconstruction with placement of tissue family practice physician following mastectomy. I saw the patient preoperatively in the clinic as well as preoperatively on the day of surgery. Risks that were discussed include bleeding, infection, hematoma, seroma, wound breakdown, need for further surgery, pain, numbness, weakness, cosmetic deformity, injury to structures, capsular contracture, asymmetry, lymphoma and medical complications. The patient understands the risks, benefits, alternatives, and complications, wishes to proceed, and signed the consent form. PROCEDURE IN DETAIL: The patient was taken to the operating room by the Surgical Oncology team. Please see their operative note for details regarding case set up and the proceedings of their case. When the surgical oncologist had completed their portion of the procedure, I came to the operating room. Upon personal discussion with the surgical oncologist, their portion of procedure had proceeded uneventfully. I then performed a time-out, confirming the patient's identity, procedures to be performed, sites, involved, and drug allergies. This was agreed upon. Antibiotics had been administered prior to startof the Surgical Oncology portion of procedure. I then switched to a new set of instruments, and set down a new set of sterile drapes and also changed the light handle, suction, and Bovie. Elevation in a subpectoral plane was performed with electrocautery. It was noted that the inferomedial and inferior portions of the pectoralis major muscle were attenuated and had become disinserted from the chest wall in a number of areas. It was felt that repair of the pectoralis major muscle wasindicated to restore its anatomic position and function. At this time the edges of the pectoralis ma tawny muscle were sharply tangentially excised back to vascularized edges and the muscle elevated to facilitate the eventual suture repair performed later on in the procedure. A laterally based serratus muscle flap was elevated thereby completing formation of the implant pocket. The breast cavity wascopiously irrigated with sterile saline and hemostasis achieved. The breast cavity was then copiously irrigated with antibiotic irrigation. The skin around the incision was then wiped down with Betadine and a set of sterile towels placed around the incision. I then proceeded to place the tissue family practice physician. All personnel involved changed to new sets of over gloves. I opened the sterile implant package, bathed the implant in triple antibiotic irrigation, evacuated all the air out of it, and then placed it in the total submuscular pocket with the correct orientation using minimal touch technique. Suture tabs were secured to the chest. The pectoralis major muscle was repaired inferiorly and infero laterally with a combination of interrupted and running 2-0 PDS sutures to approximate the previously prepared and elevated muscle edges described earlier. The implant pocket was then closed by approximating the serratus and pectoralis muscles to each other laterally with several 2-0 PDS [id number] sutures. Two 15-Vincentian Tucker drains were placed and each secured to the skin with a 2-0 silk suture. The skin was then closed with 3-0 Monocryl inverted deep dermal simple interrupted sutures followed by a running 3-0 Monocryl subcuticular suture. Lastly, Dermabond was applied, followed eventually by ABD pads and a surgical bra. The patient was then awoken from anesthesia in stable condition. All sponge, instrument, and needle counts were correct at the end of the case. I, Tyrell Daily MD, was scrubbed and present for the entire duration of the procedure with the exception of subcuticular skin closure during which I was immediately available. ANESTHESIA: General. COMPLICATIONS: None. DRAINS: As dictated. ESTIMATED BLOOD LOSS: Minimal. SPECIMENS: None. DISPOSITION: Recovery room in stable condition. [facility] Work Phone: 1(966) 837-538408-12-2022 Note* Brief Op Note - Tyrell Daily MD - 04/10/2022 11:29 AM EDT Malia Cook ([id number]) PRE OPERATIVE DIAGNOSIS Malignant neoplasm of lower-inner quadrant of right breast of female, estrogen receptor positive [C50.311, Z17.0] POST OPERATIVE DIAGNOSIS Post-Op Diagnosis Codes: * Malignant neoplasm of lower-inner quadrant of right breast of female, estrogen receptor positive [C50.311, Z17.0] PROCEDURE PERFORMED Procedure(s) (LRB): MASTECTOMY COMPLETE (Right) BX LYMPH NODE AXILLARY DEEP (Right) INJECTION RADIOACTIVE TRACER FOR SENTINEL NODE IDENTIFICATION (Right) LYMPHADENECTOMY AXILLARY DEEP (Right) 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 (Right) PRIMARY CLOSURE Yes INTRAOPERATIVE FINDINGS No significant abnormalities SURGEON Surgeon(s) and Role: Panel 1: * Stuart Smallwood MD - Primary Panel 2: * Tyrell Daily MD - Primary ANESTHESIOLOGIST Anesthesiologist: Dionte Guardado MD STACK SUPERVISOR: Bayron Ac APRN-STACK SUPERVISOR; Sharlene Brooks APRN-STACK SUPERVISOR SURGICAL STAFF Ingot Buggy Operator: Ascencion Del Rio RN; Jackelyn Hunter RN Physician Bridge Worker: Devon Silverio PA-C Relief Ingot Buggy Operator: Nasrin Cramer RN Relief Scrub: Anita Higgins RN; Indy Oneal Scrub Person: George Davis RN; Caitlyn Enciso COMPLICATIONS None ESTIMATED BLOOD LOSS Minimal SPECIMENS No specimen sent for plastics ID Type Source Tests Collected by Time Destination 1 : Excision of origional skin entrance site, 4 O'clock axis from prior diagnostic right breast ultrasound guided biopsy Permanent SURG PATH SURG PATH REQUEST Stuart Smallwood MD 04/10/2022 0823 2 : Right mastectomy, short stitch= superior, long stitch= lateral Permanent SURG PATH SURG PATH REQUEST Stuart Smallwood MD 04/10/2022 0917 3 : Right axillary sentinel lymph node #1 bisected Frozen SURG PATH SURG PATH REQUEST Stuart Smallwood MD 04/10/2022 0927 4 : Right axillary sentinel lymph node #2 Frozen SURG PATH SURG PATH REQUEST Stuart Smallwood MD 04/10/2022 0940 5 : Right axillary non-sentinel lymph node #1 bisected Frozen SURG PATH SURG PATH REQUEST Stuart Palafox MD 04/10/2022 0945 Tyrell Daily MD April 10, 2022 11:29 AM [facility]08-12-2022 Note* Nursing Notes - Nabila House RN - 04/10/2022 9:20 AM EDT 04/10/22 0920 Referral Information Arrived From home or self-care;operating room Final Discharge Planning Discharge Disposition Home Services at Discharge Outpatient wound/drain/ostomy care Transport Request Mode of Transfer private vehicle Accompanied By unknown Medical record reviewed. Patient is a 61 y.o. female with history of breast cancer. She is having surgery today- bilateral mastectomy with tissue family practice physician reconstruction. Would anticipate discharge home tomorrow from ERU bed as medically indicated. No LITA needs known at this time. See AVS for follow up appointment detail and discharge instructions. For discharge planning assistance during evening and weekend hours, please page the rn transition [facility] [phone]. [facility]08-12-2022 Nurse Surgical operation note* Jackelyn Hunter RN - 04/10/2022 8:45 AM EDT 0827 Family notified of surgery start 1010 Family updated 1121 Hand-off report sent to PACU charge nurse 1134 PACU given notice of arrival 1151 Patient extubated and transported to PACU with anesthesia at bedside on oxygen inhalation. 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 rate 16, height 1.613 m (5' 3.5 ), weight 64.1 kg (141 lb 4.8 oz), SpO2 98 %. I have reviewed Malia Cook's medical, surgical and other pertinent history, and I have updatedthe medication and allergy information in the computerized patient record. I have examined the patient, reviewed the previous H&P completed on date (04/01/2022) and there are no changes. She confirmed today's surgical procedure and indicated she understood the risks and benefits of undergoing the procedure. She has no new complaints and overall feels well today. She denies fever, chills, CP, SOB, new or worsening pain, N/V/D. She denies visits to the ED/urgent care since she was last seen. Today's surgical history and physical update was completed by CARTER Castaneda, 04/10/2022,6:22 AM. Associated attestation - Stuart Smallwood MD - 04/10/2022 6:12 PM EDT ATTENDING PHYSICIAN ATTESTMENT I have personally reviewed and evaluated this patient's [facility] electronic medical record chart, as well as has our service-specific nurse practitioner, CARTER Castaneda, and have independently confirmed their history and physical exam findings. I agree with their documented history and physical exam findings. I have personally reviewed all relevant laboratory studies, imaging, and pathology reports for the patient. A documented assessment and plan was discussed by our team with regards to this patient. I have reviewed and edited this document as determined appropriate. Stuart Smallwood MD Source Note - Stuart Smallwood MD - 04/01/2022 9:30 AM EDT FOLLOW UP NOTE FOR [facility]: DR. SMALLWOOD: HISTORY OF PRESENT ILLNESS The patient is known to me. I last saw her on 02/24/2022. I first met her on 02/04/2022. The patient is currently a 61-year-old white female. The patient had a body mass index/BMI of approximately 24.8 kg/m (5 foot, 3.5 inches tall, and weighed approximately 142 pounds), as of 02/24/2022. The patient lives in [place], [place]. 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 ################################################################################ ############################################ The patient is most recent outside prior breast imaging was performed at [facility] in [place], [place], including bilateral diagnostic digital mammogram and right breast ultrasound on 01/15/2022. On 02/21/2021, the patient underwent a 12 lead EKG through the [facility] in [place], [place].This showed normal sinus rhythm with a ventricular rate of 69 beats per minute. They stated: Impression: SINUS RHYTHM WITH SHORT TX. NONSPECIFIC T WAVE ABNORMALITY. ABNORMAL ECG. . On 04/02/2021, the patient underwent Cardiopulmonary Exercise Test (CPET) at the [facility], in [place], [place]. They stated: Summary: In summary, in the current exercise study, the patient achieved a normal work capacity (VO2 max = 23.6 ml/kg/min, 112% of VO2 max predicted); and a normal work rate (WR = 118W, 155% predicted). - The evidence for a cardiovascular pattern of limitation includes: none. - The evidence for a respiratory pattern of limitation includes: none. The overall pattern is suggestive of normal aerobic fitness. NOTE: Exercise tech staff added the following: Familiar symptoms of dyspnea were recreated during exercise. Shireen Escobedo MD, April 02, 2021. Electronically Signed On 04-04-2021 14:18:11 EDT by Shireen Escobedo. . On 01/20/2022, the patient underwent a right breast ultrasound-guided Elite 13 gauge vacuum assisted biopsy and clip placement procedure of a 4.5 x 1.8 x 1.5 cm right breast ultrasound lesion in the 11:00 position of the right breast [3.2 cm FRN] at [facility] in [place], [place]. The final pathology from 01/20/2022 showed low-grade invasive carcinoma with mixed ductal and lobular features, measuring 1.9 cm in greatest dimension, which was found to be >90% ER positive, 80-90% TX positive, and HER2/lizzette negative. On 02/18/2022, the patient's outside breast imaging was reviewed by Dr. Biju Blum of [facility] breast Radiology. They stated: EXAM: BREAST IMAGING SECOND OPINION READING, 02/18/2022 09:07 AM. CLINICAL INDICATIONS: The patient presents to the surgical clinic of Dr. Smallwood for evaluation. The patient originally presented to an outside institution in December 2021 for further evaluation of a palpable right breast lump. The patient underwent a bilateral diagnostic mammogram and right breast ultrasound which identified a suspicious right breast mass for which ultrasound-guided biopsy was suggested. The patient underwent an ultrasound-guided biopsy the right breast with pathology returning invasive ca rcinoma with mixed ductal and lobular features. Requested evaluation of outside breast imaging. COMPARISON: Bilateral diagnostic mammogram with tomosynthesis January 15, 2022. Right breast ultrasound 2021. Postbiopsy mammogram of the right breast January 20, 2022. Remote mammograms from August was reviewed for comparative purposes. MAMMOGRAM FINDINGS: The breasts have scattered areas offibroglandular density. With regard to bilateral diagnostic mammogram of January 15, 2022 in the lower inner right breast there is an irregularly-shaped isodense mass with spiculated margins and associated architectural distortion. There is some retraction of the skin in the lower pole the right breast. Mammographically the central core of the mass measures approximately 4.5 x 2.9 x 3.0 cm. No additional definitive dominant mass, distortion, or suspicious Patricio calcification either breast. With regard to the postbiopsy mammogram of January 20, 2022 there is a appropriately positioned biopsy clip atthe inferolateral aspect of the mass. ULTRASOUND FINDINGS: With regard to the right breast ultrasound of January 15, 2022 in the 11:00 position of the right breast approximately 3.2 cm from the nipple there is an irregular shaped hypoechoic mass with spiculated margins and associated vascular flow. Theoutside institution measures the mass at 4.5 x 1.8 x 1.5 cm. The latter 2 of the 3 measurements appear to underestimate the size of the mass. IMPRESSION: Biopsy-proven carcinoma in the 5:00 right breast as described above. . . On 02/24/2022, I personally reviewed the patient's outside breast imaging with Dr. Wei Robertson of [facility] breast radiology. We discussed repeating right breast ultrasound to better size the overallsonographic abnormality within the right breast representing her right breast cancer process. We discussed obtaining right axillary ultrasound to sonographically evaluate her right axillary lymph nodes. We discussed the possibility of consideration of subsequently ordering bilateral breast MRI on the patient. On 02/24/2022, the patient presented to my [facility] for evaluation. On 02/24/2022, we placed 2 digital photographs of the patient's right breast/chest region into her [facility] electronic medical records to illustrate the geographic location visible and palpable changes within her right breast, representing her right breast cancer process and skin entrance site from her r ecent right breast ultrasound-guided biopsy done at the outside facility on 01/20/2022. On 02/24/2022, patient underwent a 12 lead EKG at [facility]. This showed normal sinus rhythm with a ventricular rate of 75 beats per minute. This showed nonspecific T-wave abnormalities. This showed prolonged QT interval. This is classified as an abnormal EKG tracing by the preliminary computerized reading. The final reading of the 12 lead EKG stated: NORMAL SINUS RHYTHM. NONSPECIFIC T WAVE ABNORMALITY. PROLONGED QT INTERVAL OR TU FUSION, CONSIDER MYOCARDIAL DISEASE, ELECTROLYTE IMBALANCE, OR DRUG EFFECTS. Confirmed by Jesusita Hurt ([id number]) on 02/26/2022 5:37:03 AM. . On 02/24/2022, I had the following discussion with the patient and her and her sister in the presence of our nurse practitioner, Marlene Olivas: We discussed that I felt that the patient was not going to be an appropriate candidate for attempted right breast conserving surgery, and instead would need a right mastectomy approach. We discussed surgical evaluation of the right axillary lymph nodes with right axillary sentinel lymph node mapping and biopsy procedure, and possible radioactive lymph node dissection procedure. We discussed the patient could potentially be a candidate for reconstructive surgery associated with right mastectomy approach. We discussed the importance of having the patient be seen by 1 of the [facility]. We discussed the importance of having the patient be seen by 1 of the [facility] breast medical oncologist. We discussed the importance of having the patient be seen by 1 of the [facility] breast radiation oncologist. We discussed obtaining repeat right breast diagnostic digital mammogram to assess the overall size of her biopsy-proven right breast cancerprocess. We discussed the importance of right axillary ultrasound to sonographically assess her right axillary lymph nodes. We discussed ordering bilateral breast MRI on the patient for better sizingthe patient's right breast cancer process, as well as clearing her contralateral left breast. We discussed ordering a nuclear medicine cardiac stress test on the patient due to her abnormal EKG findings. We discussed having the patient be evaluated by the [facility] clinical cancer genetics service to discuss comprehensive genetic testing to rule out any form of hereditary breast cancer syndrome. I havediscussed all of these issues with the patient. I have answered all of her questions. The patient appears to understand what has been discussed, and she reports that she will follow-through accordingly, as is outlined above. We have given the patient contact information for our nurse practitioner, Effie Moe, and have instructed the patient to remain in contact with our nurse practitioner, Effie Moe, through [facility] [facility], for any future upcoming questions or concerns that they have regarding their management or follow-up in our [facility] breast Surgical Oncology Clinic. . On 02/24/2022, the patient underwent right breast ultrasound and right axillary ultrasound at [facility]. This was read by Dr. Wei Robertson of [facility] breast radiology. They stated: EXAM: US BREAST LIMITED UNILATERAL RIGHT, US AXILLA FOR MAMMOGRAPHY RIGHT, 02/24/2022 10:44 AM (accession [id number]), 02/24/2022 10:45 AM (accession [id number]). CLINICAL INDICATIONS: New right breast malignancy 5 o'clock, request for axillary evaluation as well. COMPARISON: January 15, 2022, January 20, 2022. FINDINGS: The biopsy-proven malignancy and associated clip is again demonstrated at the 5:00 zone 2 position. This consists of a markedly irregular ill-defined hypoechoic mass which on today's exam measures approximately 4.7 x 2.7 x 4.5 cm. Clip is noted within the mass. Evaluation of the right axilla demonstrates 2 lymph nodes with maintained normal morphology. No suspicious axillary lymph nodes are identified. IMPRESSION: 1. Biopsy-proven malignancy with measurements as described above. 2. Normal appearance of the right axilla. BI-RADS: 6: Known biopsy proven malignancy. Recommendation: Surgical excision when clinically appropriate. Recommendation Laterality: Right. . . On 02/27/2022, the patient underwent a bilateral breast MRI at [facility]. This was read by Dr. Wei Robertson of [facility] breast radiology. They stated: FINDINGS: Amount of fibroglandular tissue: heterogenous fibroglandular tissue. Background parenchymal enhancement: moderate symmetric. The right breast biopsy-proven malignancy is identified in the inferior central and inferior medial aspects consistingof a good: Irregular poorly marginated mass. Associated tissue marker is noted. This mass measures 4.5 x 2.9 x 3.0 cm. The mass does not appear to abut or invade the chest wall. There are scattered benign cysts in the left breast. There is no dominant mass, architectural distortion or area of suspic ious enhancement in the left breast. Axilla: There is no axillary lymphadenopathy. Internal MammaryChain: There is no internal mammary lymphadenopathy. Extramammary soft tissues: Unremarkable. IMPRESSION: 1. Biopsy proven malignancy in the inferior right breast as described. Continued clinical management recommended. 2. No MR evidence of malignancy in the left breast. Bi- RADS: 6: Known biopsy proven malignancy. Recommendation: Surgical excision when clinically appropriate. Recommendation Laterality: Right. . . On 03/04/2022, the patient was seen by Dr. Tyrell Daily of [facility] Plastic surgery. They stated: Plan: I discussed that the patient would be most suited to 2-stage implant-based reconstruction. After discussion, the patient stated that they wish to proceed with: right mastectomy and immediate breast reconstruction with tissue family practice physician. We will schedule/coordinate surgery and the patient will return at their preoperative appointment. . On 03/18/2022, the patient underwent a nuclear medicine cardiac stress test at [facility]. They stated: Interpretation Summary: Lexiscan Stress myocardial perfusion scan within normal limits. No evidence of ischemia. No evidence of prior myocardial injury. Normal left ventricular systolic function ( LVEF65% ). There is hot spot in the infero-medial right breast. Stress Findings: ECG. Baseline ECG is normal. Baseline ECG shows non-specific ST-T wave abnormalities consistent with ST depression. StressECG is unchanged from baseline. There was no ST segment deviation noted during stress. Recovery ECGreturned to baseline. Negative pharm stress test. Stress Findings A pharmacological stress test was performed using regadenoson without low-level exercise. The patient reported no symptoms prior to the stress test. The patient reported dizziness, shortness of breath and stomach discomfort during the stress test. The patient reached the end of the protocol. All symptoms resolved in recovery. At rest, the ECG is NSR with NS ST and TW changes. No angina or ECG changes with Lexiscan infusion. NEGATIVE LEXISCAN STRESS ECG. On 03/20/2022, the patient was seen by Dr. Deepti Gomez of [facility] breast Radiation Oncology. The patient returns to my [facility] breast surgical oncology clinic at this time. Complete review of systems is otherwise negative for any new findings aside from anything else which was mentioned elsewhere within the current clinic note. PHYSICAL EXAMINATION Vital Signs: BP 125/65 Comment: measured at [facility] today [facility] 83 [facility] Temp 97.7 F (36.5 C) (Oral) Comment: measured at [facility] appointment today Resp 16Comment: measured at [facility] appointment today Wt 65 kg (143 lb 6.4 oz) Comment: measured at [facility] appointment today BMI 25.00 kg/m Smoking Status Never Smoker ,Body mass index is 25 kg/m . Exam on 04/01/2022: Our Nursing Staff was present for the evaluation (Ramona Pena and Simin Lemos and Effie Moe). The patient came to the clinic exam room with her and her sister. VITAL SIGNS: Smoking Status Never Smoker ,There is no height or weight on file to calculate BMI. GENERAL: Well nourished, well developed, White female. No acute distress. HEENT: Head: Normocephalic and atraumatic. Eyes: Pupils are equal, round, and reactive to light andaccomodation. Extraocular movements are intact. Sclerae are anicteric. Neck: Supple, non-tender. Notracheal deviation. No thyromegally. HEART: Regular rate and rhythm. Normal S1, S2. No murmurs, rubs or gallops. LUNG/CHEST: Lungs are clear to auscultation bilaterally. No wheezes, rhonchi or rales noted. BREASTS: On 02/24/2022, we placed 2 digital photographs of the patient's right breast/chest region into her [facility] electronic medical records to illustrate the geographic location visible and palpable changes within her right breast, representing her right breast cancer process and skin entrance site from her r ecent right breast ultrasound-guided biopsy done at the outside facility on 01/20/2022. The patient has bilateral medium-sized breast profiles for her body frame. The patient's breasts are somewhat pendulous and ptotic, especially when she is sitting up. On 04/01/2022, the patient has the following clinical examination of her right breast. The patient has visible and palpable changes of her right breast. The patient has a 6 x 5 x 3 cm palpable area of fullness along the 3:00/4:00/5:00/6:00 axis of zone 1/2 of her right breast profile, which is free off the underlying right chest wall region, and extensive proximally 7 cm from the right nipple profile in the 4:00/5:00 axis with the patient is lying down with her right arm up above her head. The patient is a well-healed skin entrance site within the skin of the 4:00 axis of the right breast skin, extending 8 cm from the right upper pole file with the patient was lying down with her right arm up above her head from her recent right breast ultrasound-guided biopsy at outside facility from 01/20/2022. The patient has no discrete, concerning, palpable left breast masses within the left breast profile. The patient has no suspicious nipple abnormalities bilaterally. The patient has no suspicious skin changes of her breast skin bilaterally. LYMPH NODES: The patient has no overtly obvious discrete palpable cervical, supraclavicular, or axillary adenopathy bilaterally. ABDOMEN: Abdomen with normoactive bowel sounds in all four quadrants. Soft, non- tender, non-distended. No organomegaly. EXTREMITIES: Normal range of motion in all four extremities, with normal strength equally and symmetrically. No cyanosis or clubbing or peripheral edema. VASCULAR: 2+ distal pulses in upper and lower extremities. 2+ carotid pulses without carotid bruits. NEUROLOGICAL: Conscious, alert and oriented. Grossly intact. SKIN: Skin is warm and dry. No skin lesions. The patient has relatively dark chronic tanned skin with sun damage changes of her skin overall her visible parts of her trunk and extremities. Exam on 02/24/2022: Our Nursing Staff was present for the evaluation (Clarissa Hamm and Marlene Olivas). The patient came to the clinic exam room with her and her sister. GENERAL: Well nourished, well developed, White female. No acute distress. HEENT: Head: Normocephalic and atraumatic. Eyes: Pupils are equal, round, and reactive to light andaccomodation. Extraocular movements are intact. Sclerae are anicteric. Neck: Supple, non-tender. Notracheal deviation. No thyromegally. HEART: Regular rate and rhythm. Normal S1, S2. No murmurs, rubs or gallops. LUNG/CHEST: Lungs are clear to auscultation bilaterally. No wheezes, rhonchi or rales noted. BREASTS: On 02/24/2022, we placed 2 digital photographs of the patient's right breast/chest region into her [facility] electronic medical records to illustrate the geographic location visible and palpable changes within her right breast, representing her right breast cancer process and skin entrance site from her r ecent right breast ultrasound-guided biopsy done at the outside facility on 01/20/2022. The patient has bilateral medium-sized breast profiles for her body frame. The patient's breasts are somewhat pendulous and ptotic, especially when she is sitting up. On 02/24/2022, the patient has the following clinical examination of her right breast. The patient has visible and palpable changes of her right breast. The patient has a 6 x 5 x 3 cm palpable area of fullness along the 3:00/4:00/5:00/6:00 axis of zone 1/2 of her right breast profile, which is free off the underlying right chest wall region, and extensive proximally 7 cm from the right nipple profile in the 4:00/5:00 axis with the patient is lying down with her right arm up above her head. The patient is a well-healed skin entrance site within the skin of the 4:00 axis of the right breast skin, extending 8 cm from the right upper pole file with the patient was lying down with her right arm up above her head from her recent right breast ultrasound-guided biopsy at outside facility from 01/20/2022. The patient has no discrete, concerning, palpable left breast masses within the left breast profile. The patient has no suspicious nipple abnormalities bilaterally. The patient has no suspicious skin changes of her breast skin bilaterally. LYMPH NODES: The patient has no overtly obvious discrete palpable cervical, supraclavicular, or axillary adenopathy bilaterally. ABDOMEN: Abdomen with normoactive bowel sounds in all four quadrants. Soft, non- tender, non-distended. No organomegaly. EXTREMITIES: Normal range of motion in all four extremities, with normal strength equally and symmetrically. No cyanosis or clubbing or peripheral edema. VASCULAR: 2+ distal pulses in upper and lower extremities. 2+ carotid pulses without carotid bruits. NEUROLOGICAL: Conscious, alert and oriented. Grossly intact. SKIN: Skin is warm and dry. No skin lesions. The patient has relatively dark chronic tanned skin with sun damage changes of her skin overall her visible parts of her trunk and extremities. BREAST IMAGING See HPI. The patient will be due for next annual left breast digital mammogram by January 2023. 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 ################################################################################ ############################################ We discussed right mastectomy procedure, right axillary sentinel lymph node mapping biopsy procedure, and possible right axillary lymph node dissection procedure (by me) and placement of a right-sided tissue family practice physician (by Dr. Tyrell Daily of [facility] Plastic surgery). I have discussed all of these above described surgical procedures to be performed by me. I have discussed all of the associated risks. I have discussed all of the associated benefits. The patient has given informed consent, the patient has signed a consent form, and the patient wishes to proceed with the above described surgery. We discussed the possibility of requiring surgical MOLLY drains in the surgical sites. We discussed that the patient will be placed into an arm sling to her arm on her breast cancer side, to limit her arm movement at her shoulder region after her surgery. All appropriate preoperative testing and preoperative preparation will be completed today. All appropriate preoperative teaching will be completed today. At the current time, we have selected a tentative surgical date for 04/10/2022. We have given the patient contact information for our nurse practitioner, Effie Moe, andhave instructed the patient to remain in contact with our nurse practitioner, Effie Moe,through [employer], for any future upcoming questions or concerns that they have regarding their management or follow-up in our [facility] breast Surgical Oncology Clinic. The patient has been instructed to remove all jewelry, including all body piercings, prior to her surgical date. I have discussed all of these issues with the patient. I have answered all of her questions. The patient appears to understand what has been discussed, and she reports that she will follow-through accordingly, as is outlined above. ################################################################################ ############################################ In the process of seeing this patient, multiple medical records, imaging studies, and other ancillary studies, and their reports, were carefully reviewed from all available internal [facility] sites, as well as from all available external sites, and were interpreted within the context of the patient's working clinical diagnosis. A comprehensive history and physical was performed, as is detailed above. The patient's known diagnosis of or concern for breast cancer has led to an extensive discussion withthe patient of multiple options for treatment and care, as well as the risks, benefits, and alternatives to each of those options for treatment and care. We discussed that breast cancer is a complex health concern and can sometimes be a life-altering health issue or even life- threatening health issue. The in-depth discussion of surgical treatment and care for the patient's particular diagnosis included specific risks, potential morbidities, and the impact of that surgical treatment on their quality of life. The specific discussion with the patient and recommendations that were made were specifically reflective of the patient s listed history and comorbidities. ################################################################################ ############################################ I have discussed all of these issues with the patient. I have answered all of her questions. The patient appears to understand what has been discussed, and she reports that she will follow-through accordingly, as is outlined above. We have given the patient contact information for our nurse practitioner, Effie Moe, andhave instructed the patient to remain in contact with our nurse practitioner, Effie Moe,through [employer] [facility], for any future upcoming questions or concerns that they have regarding their management or follow-up in our [facility] breast Surgical Oncology Clinic. This note was dictated using [employer] voice recognition software. Attempts at proofreading were made, but errors may occasionally still occur. I have reviewed Malia Joyce medical, surgical and other pertinent history in detail, and have updated medication and allergy information in the computerized patient record. REFERRING/PRIMARY PROVIDER(S) -Referring Provider for today's consult: Tucker Haywood MD -Primary Care Provider: Tucker Haywood ADDENDUM #1: PREOPERATIVE HISTORY AND PHYSICAL EXAMINATION NOTE FOR [facility] BREAST SURGICAL [facility]Y [facility]: DR. SMALLWOOD: HISTORY OF PRESENT ILLNESS See MD (Dr. Smallwood) follow up note from today's clinic visit. REVIEW OF SYSTEMS GENERAL/CONSTITUTIONAL: Negative for fever, chills, fatigue, recent weight gain or loss. HEENT: No visual disturbances. No hearing loss, tinnitus, sore throat, nosebleeds, and rhinorrhea. No dysphagia or odynophagia. CARDIOVASCULAR: Negative for palpitations, chest pain, dyspnea on exertion, orthopnea or paroxysmalnocturnal dyspnea. RESPIRATORY: No history of TB exposure. Negative for chronic or productive cough, hemoptysis, or asthma. GASTROINTESTINAL: Negative for abdominal pain, nausea, vomiting, diarrhea, constipation or changes in bowel habits. GENITOURINARY: Negative for dysuria or hematuria. No frequency, urgency, or hesitancy. MUSCULOSKELETAL: Negative for arthralgias, myalgias, or back pain. NEUROLOGICAL: Negative for dizziness, syncope, focal weakness or headaches. PSYCHIATRIC: Negative for depression, anxiety or mood disorders. SKIN: Negative for acute skin lesions. 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 Prn Breztri Aerosphere 160-9-4.8 MCG/ACT Aerosol INHALE 2 PUFFS BY MOUTH TWICE DAILY esomeprazole [address] capsule Take 20 mg by mouth every morning before breakfast. furOSEmide 20 MG tablet Take 20 mg by mouth daily. meloxicam 15 MG tablet Synthroid 50 MCG tablet ALLERGIES Allergies Allergen Reactions Sumatriptan Other reaction(s): Mental Status Change, Other (See Comments) IMMUNIZATIONS There is no immunization history on file for this patient. 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 No LMP recorded. Patient has had a hysterectomy. FAMILY HISTORY Her family history includes Alzheimer's in her mother; Breast Cancer (age of onset: 40) in her maternal cousin; Cancer- Other in her maternal aunt and maternal cousin; Colorectal Cancer (age of onset: 48) in her sister; Diabetes in her brother, father, and sister; Heart Disease - Other in her maternal grandfather and maternal uncle; Leukemia in her maternal cousin; Other - Specify in her brother,brother, father, maternal aunt, and son; Ovarian Cancer in her maternal aunt; Thyroid Cancer in hermaternal grandmother. SOCIAL HISTORY She reports that she has never smoked. She has never used smokeless tobacco. She reports current alcohol use of about 1.0 standard drink of alcohol per week. She reports that she does not use drugs. PHYSICAL EXAMINATION VITAL SIGNS: BP 125/65 Comment: measured at RS appointment today Pulse 83 Comment: measured at RSappointment today Temp 97.7 F (36.5 C) (Oral) Comment: measured at RS appointment today Resp 16Comment: measured at RS appointment today Wt 65 kg (143 lb 6.4 oz) Comment: measured at RS appointment today BMI 25.00 kg/m Smoking Status Never Smoker , Body mass index is 25 kg/m . GENERAL: Well developed and well nourished female. No acute distress. HEENT: Head: Normocephalic and atraumatic. Eyes: Pupils are equal, round, and reactive to light andaccomodation. Neck: Supple, non-tender. No tracheal deviation. No thyromegally. HEART: Regular rate and rhythm. Normal S1, S2. No murmurs, rubs or gallops. LUNG/CHEST: Lungs are clear to auscultation bilaterally. No wheezes, rhonchi or rales noted. BREAST: per attached MD clinic note. LYMPH NODES: per attached MD clinic note. ABDOMEN: Abdomen with normoactive bowel sounds in all four quadrants. Soft, non- tender, non-distended. No organomegaly. EXTREMITIES: Normal range of motion in all four extremities, with normal strength equally and symmetrically. No cyanosis or clubbing or peripheral edema. VASCULAR: 2+ distal pulses in upper and lower extremities. 2+ carotid pulses without carotid bruits. NEUROLOGICAL: Conscious, alert and oriented. Grossly intact. SKIN: Skin is warm and dry. No skin lesions. ASSESSMENT AND PLAN Preoperative testing and teaching have been completed today. She verbalizes understanding of all explained to her today regarding her upcoming surgery. Medications reviewed with patient in preparation for her upcoming surgery. All above information has been reviewed by Dr. Smallwood. I have reviewed [facility] medical, surgical and other pertinent history in detail, and have updated medication and allergy information in the computerized patient record. 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 rate 16, height 1.613 m (5' 3.5 ), weight 64.1 kg (141 lb 4.8 oz), SpO2 98 %. I have reviewed Malia Cook's medical, surgical and other pertinent history, and I have updatedthe medication and allergy information in the computerized patient record. I have examined the patient, reviewed the previous H&P completed on date (04/01/2022) and there are no changes. She confirmed today's surgical procedure and indicated she understood the risks and benefits of undergoing the procedure. She has no new complaints and overall feels well today. She denies fever, chills, CP, SOB, new or worsening pain, N/V/D. She denies visits to the ED/urgent care since she was last seen. Today's surgical history and physical update was completed by CARTER Castaneda, 04/10/2022,6:22 AM. Associated attestation - Stuart Smallwood MD - 04/10/2022 6:12 PM EDT ATTENDING PHYSICIAN ATTESTMENT I have personally reviewed and evaluated this patient's [facility] electronic medical record chart, as well as has our service-specific nurse practitioner, CARTER Castaneda, and have independently confirmed their history and physical exam findings. I agree with their documented history and physical exam findings. I have personally reviewed all relevant laboratory studies, imaging, and pathology reports for the patient. A documented assessment and plan was discussed by our team with regards to this patient. I have reviewed and edited this document as determined appropriate. Stuatr Smallwood MD Source Note - Stuart Smallwood MD - 04/01/2022 9:30 AM EDT FOLLOW UP NOTE FOR [facility] BREAST SURGICAL ONCOLOGY CLINIC: DR. SMALLWOOD: HISTORY OF PRESENT ILLNESS The patient is known to me. I last saw her on 02/24/2022. I first met her on 02/04/2022. The patient is currently a 61-year-old white female. The patient had a body mass index/BMI of approximately 24.8 kg/m (5 foot, 3.5 inches tall, and weighed approximately 142 pounds), as of 02/24/2022. The patient lives in [place], [place]. 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 ################################################################################ ############################################ The patient is most recent outside prior breast imaging was performed at [facility] in [place], [place], including bilateral diagnostic digital mammogram and right breast ultrasound on 01/15/2022. On 02/21/2021, the patient underwent a 12 lead EKG through the [facility] in [place], [place].This showed normal sinus rhythm with a ventricular rate of 69 beats per minute. They stated: Impression: SINUS RHYTHM WITH SHORT TX. NONSPECIFIC T WAVE ABNORMALITY. ABNORMAL ECG. . On 04/02/2021, the patient underwent Cardiopulmonary Exercise Test (CPET) at the [facility], in [place], [place]. They stated: Summary: In summary, in the current exercise study, the patient achieved a normal work capacity (VO2 max = 23.6 ml/kg/min, 112% of VO2 max predicted); and a normal work rate (WR = 118W, 155% predicted). - The evidence for a cardiovascular pattern of limitation includes: none. - The evidence for a respiratory pattern of limitation includes: none. The overall pattern is suggestive of normal aerobic fitness. NOTE: Exercise tech staff added the following: Familiar symptoms of dyspnea were recreated during exercise. Shireen Escobedo MD, April 02, 2021. Electronically Signed On 04-04-2021 14:18:11 EDT by Shireen Escobedo. . On 01/20/2022, the patient underwent a right breast ultrasound-guided Elite 13 gauge vacuum assisted biopsy and clip placement procedure of a 4.5 x 1.8 x 1.5 cm right breast ultrasound lesion in the 11:00 position of the right breast [3.2 cm FRN] at [facility] in [place], [place]. The final pathology from 01/20/2022 showed low-grade invasive carcinoma with mixed ductal and lobular features, measuring 1.9 cm in greatest dimension, which was found to be >90% ER positive, 80-90% TX positive, and HER2/lizzette negative. On 02/18/2022, the patient's outside breast imaging was reviewed by Dr. Biju Blum of [facility] breast Radiology. They stated: EXAM: BREAST IMAGING SECOND OPINION READING, 02/18/2022 09:07 AM. CLINICAL INDICATIONS: The patient presents to the surgical clinic of Dr. Smallwood for evaluation. The patient originally presented to an outside institution in December 2021 for further evaluation of a palpable right breast lump. The patient underwent a bilateral diagnostic mammogram and right breast ultrasound which identified a suspicious right breast mass for which ultrasound-guided biopsy was suggested. The patient underwent an ultrasound-guided biopsy the right breast with pathology returning invasive ca rcinoma with mixed ductal and lobular features. Requested evaluation of outside breast imaging. COMPARISON: Bilateral diagnostic mammogram with tomosynthesis January 15, 2022. Right breast ultrasound 2021. Postbiopsy mammogram of the right breast January 20, 2022. Remote mammograms from August was reviewed for comparative purposes. MAMMOGRAM FINDINGS: The breasts have scattered areas offibroglandular density. With regard to bilateral diagnostic mammogram of January 15, 2022 in the lower inner right breast there is an irregularly-shaped isodense mass with spiculated margins and associated architectural distortion. There is some retraction of the skin in the lower pole the right breast. Mammographically the central core of the mass measures approximately 4.5 x 2.9 x 3.0 cm. No additional definitive dominant mass, distortion, or suspicious Patricio calcification either breast. With regard to the postbiopsy mammogram of January 20, 2022 there is a appropriately positioned biopsy clip atthe inferolateral aspect of the mass. ULTRASOUND FINDINGS: With regard to the right breast ultrasound of January 15, 2022 in the 11:00 position of the right breast approximately 3.2 cm from the nipple there is an irregular shaped hypoechoic mass with spiculated margins and associated vascular flow. [facility] the mass at 4.5 x 1.8 x 1.5 cm. The latter 2 of the 3 measurements appear to underestimate the size of the mass. IMPRESSION: Biopsy-proven carcinoma in the 5:00 right breast as described above. . . On 02/24/2022, I personally reviewed the patient's outside breast imaging with Dr. Wei Robertson of [facility] breast radiology. We discussed repeating right breast ultrasound to better size the overallsonographic abnormality within the right breast representing her right breast cancer process. We discussed obtaining right axillary ultrasound to sonographically evaluate her right axillary lymph nodes. We discussed the possibility of consideration of subsequently ordering bilateral breast MRI on the patient. On 02/24/2022, the patient presented to my [facility] Breast [facility] for evaluation. On 02/24/2022, we placed 2 digital photographs of the patient's right breast/chest region into her [facility] electronic medical records to illustrate the geographic location visible and palpable changes within her right breast, representing her right breast cancer process and skin entrance site from her r ecent right breast ultrasound-guided biopsy done at the outside facility on 01/20/2022. On 02/24/2022, patient underwent a 12 lead EKG at [facility]. This showed normal sinus rhythm with a ventricular rate of 75 beats per minute. This showed nonspecific T-wave abnormalities. This showed prolonged QT interval. This is classified as an abnormal EKG tracing by the preliminary computerized reading. The final reading of the 12 lead EKG stated: NORMAL SINUS RHYTHM. NONSPECIFIC T WAVE ABNORMALITY. PROLONGED QT INTERVAL OR TU FUSION, CONSIDER MYOCARDIAL DISEASE, ELECTROLYTE IMBALANCE, OR DRUG EFFECTS. Confirmed by Jesusita Hurt ([id number]) on 02/26/2022 5:37:03 AM. . On 02/24/2022, I had the following discussion with the patient and her and her sister in the presence of our nurse practitioner, Marlene Olivas: We discussed that I felt that the patient was not going to be an appropriate candidate for attempted right breast conserving surgery, and instead would need a right mastectomy approach. We discussed surgical evaluation of the right axillary lymph nodes with right axillary sentinel lymph node mapping and biopsy procedure, and possible radioactive lymph node dissection procedure. We discussed the patient could potentially be a candidate for reconstructive surgery associated with right mastectomy approach. We discussed the importance of having the patient be seen by 1 of the [facility] Plastic Surgeons. We discussed the importance of having the patient be seen by 1 of the [facility] breast medical oncologist. We discussed the importance of having the patient be seen by 1 of the [facility] breast radiation oncologist. We discussed obtaining repeat right breast diagnostic digital mammogram to assess the overall size of her biopsy-proven right breast cancerprocess. We discussed the importance of right axillary ultrasound to sonographically assess her right axillary lymph nodes. We discussed ordering bilateral breast MRI on the patient for better sizingthe patient's right breast cancer process, as well as clearing her contralateral left breast. We discussed ordering a nuclear medicine cardiac stress test on the patient due to her abnormal EKG findings. We discussed having the patient be evaluated by the [facility] clinical cancer genetics service to discuss comprehensive genetic testing to rule out any form of hereditary breast cancer syndrome. I havediscussed all of these issues with the patient. I have answered all of her questions. The patient appears to understand what has been discussed, and she reports that she will follow-through accordingly, as is outlined above. We have given the patient contact information for our nurse practitioner, Effie Moe, and have instructed the patient to remain in contact with our nurse practitioner, Effie Moe, through [employer] [facility] [facility], for any future upcoming questions or concerns that they have regarding their management or follow-up in our [facility] breast Surgical Oncology Clinic. . On 02/24/2022, the patient underwent right breast ultrasound and right axillary ultrasound at [facility]. This was read by Dr. Wei Robertson of [facility] breast radiology. They stated: EXAM: US BREAST LIMITED UNILATERAL RIGHT, US AXILLA FOR MAMMOGRAPHY RIGHT, 02/24/2022 10:44 AM (accession [id number]), 02/24/2022 10:45 AM (accession [id number]). CLINICAL INDICATIONS: New right breast malignancy 5 o'clock, request for axillary evaluation as well. COMPARISON: January 15, 2022, January 20, 2022. FINDINGS: The biopsy-proven malignancy and associated clip is again demonstrated at the 5:00 zone 2 position. This consists of a markedly irregular ill-defined hypoechoic mass which on today's exam measures approximately 4.7 x 2.7 x 4.5 cm. Clip is noted within the mass. Evaluation of the right axilla demonstrates 2 lymph nodes with maintained normal morphology. No suspicious axillary lymph nodes are identified. IMPRESSION: 1. Biopsy-proven malignancy with measurements as described above. 2. Normal appearance of the right axilla. BI-RADS: 6: Known biopsy proven malignancy. Recommendation: Surgical excision when clinically appropriate. Recommendation Laterality: Right. . . On 02/27/2022, the patient underwent a bilateral breast MRI at [facility]. This was read by Dr. Wei Robertson of [facility] breast radiology. They stated: FINDINGS: Amount of fibroglandular tissue: heterogenous fibroglandular tissue. Background parenchymal enhancement: moderate symmetric. The right breast biopsy-proven malignancy is identified in the inferior central and inferior medial aspects consistingof a good: Irregular poorly marginated mass. Associated tissue marker is noted. This mass measures 4.5 x 2.9 x 3.0 cm. The mass does not appear to abut or invade the chest wall. There are scattered benign cysts in the left breast. There is no dominant mass, architectural distortion or area of suspic ious enhancement in the left breast. Axilla: There is no axillary lymphadenopathy. Internal MammaryChain: There is no internal mammary lymphadenopathy. Extramammary soft tissues: Unremarkable. IMPRESSION: 1. Biopsy proven malignancy in the inferior right breast as described. Continued clinical management recommended. 2. No MR evidence of malignancy in the left breast. Bi- RADS: 6: Known biopsy proven malignancy. Recommendation: Surgical excision when clinically appropriate. Recommendation Laterality: Right. . . On 03/04/2022, the patient was seen by Dr. Tyrell Daily of [facility] Plastic surgery. They stated: Plan: I discussed that the patient would be most suited to 2-stage implant-based reconstruction. After discussion, the patient stated that they wish to proceed with: right mastectomy and immediate breast reconstruction with tissue family practice physician. We will schedule/coordinate surgery and the patient will return at their preoperative appointment. . On 03/18/2022, the patient underwent a nuclear medicine cardiac stress test at [facility]. They stated: Interpretation Summary: Lexiscan Stress myocardial perfusion scan within normal limits. No evidence of ischemia. No evidence of prior myocardial injury. Normal left ventricular systolic function ( LVEF65% ). There is hot spot in the infero-medial right breast. Stress Findings: ECG. Baseline ECG is normal. Baseline ECG shows non-specific ST-T wave abnormalities consistent with ST depression. StressECG is unchanged from baseline. There was no ST segment deviation noted during stress. Recovery ECGreturned to baseline. Negative pharm stress test. Stress Findings A pharmacological stress test was performed using regadenoson without low-level exercise. The patient reported no symptoms prior to the stress test. The patient reported dizziness, shortness of breath and stomach discomfort during the stress test. The patient reached the end of the protocol. All symptoms resolved in recovery. At rest, the ECG is NSR with NS ST and TW changes. No angina or ECG changes with Lexiscan infusion. NEGATIVE LEXISCAN STRESS ECG. On 03/20/2022, the patient was seen by Dr. Deepti Gomez of [facility]. The patient returns to my [facility] breast surgical oncology clinic at this time. Complete review of systems is otherwise negative for any new findings aside from anything else which was mentioned elsewhere within the current clinic note. PHYSICAL EXAMINATION Vital Signs: BP 125/65 Comment: measured at RS appointment today Pulse 83 Comment: measured at RSappointment today Temp 97.7 F (36.5 C) (Oral) Comment: measured at RS appointment today Resp 16Comment: measured at RS appointment today Wt 65 kg (143 lb 6.4 oz) Comment: measured at RS appointment today BMI 25.00 kg/m Smoking Status Never Smoker ,Body mass index is 25 kg/m . Exam on 04/01/2022: Our Nursing Staff was present for the evaluation (Ramona Pena and Simin Lemos and Effie Moe). The patient came to the clinic exam room with her and her sister. VITAL SIGNS: Smoking Status Never Smoker ,There is no height or weight on file to calculate BMI. GENERAL: Well nourished, well developed, White female. No acute distress. HEENT: Head: Normocephalic and atraumatic. Eyes: Pupils are equal, round, and reactive to light andaccomodation. Extraocular movements are intact. Sclerae are anicteric. Neck: Supple, non-tender. Notracheal deviation. No thyromegally. HEART: Regular rate and rhythm. Normal S1, S2. No murmurs, rubs or gallops. LUNG/CHEST: Lungs are clear to auscultation bilaterally. No wheezes, rhonchi or rales noted. BREASTS: On 02/24/2022, we placed 2 digital photographs of the patient's right breast/chest region into her [facility] electronic medical records to illustrate the geographic location visible and palpable changes within her right breast, representing her right breast cancer process and skin entrance site from her r ecent right breast ultrasound-guided biopsy done at the outside facility on 01/20/2022. The patient has bilateral medium-sized breast profiles for her body frame. The patient's breasts are somewhat pendulous and ptotic, especially when she is sitting up. On 04/01/2022, the patient has the following clinical examination of her right breast. The patient has visible and palpable changes of her right breast. The patient has a 6 x 5 x 3 cm palpable area of fullness along the 3:00/4:00/5:00/6:00 axis of zone 1/2 of her right breast profile, which is free off the underlying right chest wall region, and extensive proximally 7 cm from the right nipple profile in the 4:00/5:00 axis with the patient is lying down with her right arm up above her head. The patient is a well-healed skin entrance site within the skin of the 4:00 axis of the right breast skin, extending 8 cm from the right upper pole file with the patient was lying down with her right arm up above her head from her recent right breast ultrasound-guided biopsy at outside facility from 01/20/2022. The patient has no discrete, concerning, palpable left breast masses within the left breast profile. The patient has no suspicious nipple abnormalities bilaterally. The patient has no suspicious skin changes of her breast skin bilaterally. LYMPH NODES: The patient has no overtly obvious discrete palpable cervical, supraclavicular, or axillary adenopathy bilaterally. ABDOMEN: Abdomen with normoactive bowel sounds in all four quadrants. Soft, non- tender, non-distended. No organomegaly. EXTREMITIES: Normal range of motion in all four extremities, with normal strength equally and symmetrically. No cyanosis or clubbing or peripheral edema. VASCULAR: 2+ distal pulses in upper and lower extremities. 2+ carotid pulses without carotid bruits. NEUROLOGICAL: Conscious, alert and oriented. Grossly intact. SKIN: Skin is warm and dry. No skin lesions. The patient has relatively dark chronic tanned skin with sun damage changes of her skin overall her visible parts of her trunk and extremities. Exam on 02/24/2022: Our Nursing Staff was present for the evaluation (Clarissa Hamm and Marlene Olivas). The patient came to the clinic exam room with her and her sister. GENERAL: Well nourished, well developed, White female. No acute distress. HEENT: Head: Normocephalic and atraumatic. Eyes: Pupils are equal, round, and reactive to light andaccomodation. Extraocular movements are intact. Sclerae are anicteric. Neck: Supple, non-tender. Notracheal deviation. No thyromegally. HEART: Regular rate and rhythm. Normal S1, S2. No murmurs, rubs or gallops. LUNG/CHEST: Lungs are clear to auscultation bilaterally. No wheezes, rhonchi or rales noted. BREASTS: On 02/24/2022, we placed 2 digital photographs of the patient's right breast/chest region into her [facility] electronic medical records to illustrate the geographic location visible and palpable changes within her right breast, representing her right breast cancer process and skin entrance site from her r ecent right breast ultrasound-guided biopsy done at the outside facility on 01/20/2022. The patient has bilateral medium-sized breast profiles for her body frame. The patient's breasts are somewhat pendulous and ptotic, especially when she is sitting up. On 02/24/2022, the patient has the following clinical examination of her right breast. The patient has visible and palpable changes of her right breast. The patient has a 6 x 5 x 3 cm palpable area of fullness along the 3:00/4:00/5:00/6:00 axis of zone 1/2 of her right breast profile, which is free off the underlying right chest wall region, and extensive proximally 7 cm from the right nipple profile in the 4:00/5:00 axis with the patient is lying down with her right arm up above her head. The patient is a well-healed skin entrance site within the skin of the 4:00 axis of the right breast skin, extending 8 cm from the right upper pole file with the patient was lying down with her right arm up above her head from her recent right breast ultrasound-guided biopsy at outside facility from 01/20/2022. The patient has no discrete, concerning, palpable left breast masses within the left breast profile. The patient has no suspicious nipple abnormalities bilaterally. The patient has no suspicious skin changes of her breast skin bilaterally. LYMPH NODES: The patient has no overtly obvious discrete palpable cervical, supraclavicular, or axillary adenopathy bilaterally. ABDOMEN: Abdomen with normoactive bowel sounds in all four quadrants. Soft, non- tender, non-distended. No organomegaly. EXTREMITIES: Normal range of motion in all four extremities, with normal strength equally and symmetrically. No cyanosis or clubbing or peripheral edema. VASCULAR: 2+ distal pulses in upper and lower extremities. 2+ carotid pulses without carotid bruits. NEUROLOGICAL: Conscious, alert and oriented. Grossly intact. SKIN: Skin is warm and dry. No skin lesions. The patient has relatively dark chronic tanned skin with sun damage changes of her skin overall her visible parts of her trunk and extremities. BREAST IMAGING See HPI. The patient will be due for next annual left breast digital mammogram by January 2023. 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 ################################################################################ ############################################ We discussed right mastectomy procedure, right axillary sentinel lymph node mapping biopsy procedure, and possible right axillary lymph node dissection procedure (by me) and placement of a right-sided tissue family practice physician (by Dr. Tyrell Daily of [facility] Plastic surgery). I have discussed all of these above described surgical procedures to be performed by me. I have discussed all of the associated risks. I have discussed all of the associated benefits. The patient has given informed consent, the patient has signed a consent form, and the patient wishes to proceed with the above described surgery. We discussed the possibility of requiring surgical MOLLY drains in the surgical sites. We discussed that the patient will be placed into an arm sling to her arm on her breast cancer side, to limit her arm movement at her shoulder region after her surgery. All appropriate preoperative testing and preoperative preparation will be completed today. All appropriate preoperative teaching will be completed today. At the current time, we have selected a tentative surgical date for 04/10/2022. We have given the patient contact information for our nurse practitioner, Effie Moe, andhave instructed the patient to remain in contact with our nurse practitioner, Effie Moe,through [employer] [facility] [facility], for any future upcoming questions or concerns that they have regarding their management or follow-up in our [facility] breast Surgical Oncology Clinic. The patient has been instructed to remove all jewelry, including all body piercings, prior to her surgical date. I have discussed all of these issues with the patient. I have answered all of her questions. The patient appears to understand what has been discussed, and she reports that she will follow-through accordingly, as is outlined above. ################################################################################ ############################################ In the process of seeing this patient, multiple medical records, imaging studies, and other ancillary studies, and their reports, were carefully reviewed from all available internal [facility] sites, as well as from all available external sites, and were interpreted within the context of the patient's working clinical diagnosis. A comprehensive history and physical was performed, as is detailed above. The patient's known diagnosis of or concern for breast cancer has led to an extensive discussion withthe patient of multiple options for treatment and care, as well as the risks, benefits, and alternatives to each of those options for treatment and care. We discussed that breast cancer is a complex health concern and can sometimes be a life-altering health issue or even life- threatening health issue. The in-depth discussion of surgical treatment and care for the patient's particular diagnosis included specific risks, potential morbidities, and the impact of that surgical treatment on their quality of life. The specific discussion with the patient and recommendations that were made were specifically reflective of the patient s listed history and comorbidities. ################################################################################ ############################################ I have discussed all of these issues with the patient. I have answered all of her questions. The patient appears to understand what has been discussed, and she reports that she will follow-through accordingly, as is outlined above. We have given the patient contact information for our nurse practitioner, Effie Moe, andhave instructed the patient to remain in contact with our nurse practitioner, Effie Moe,through [employer] [facility] [facility], for any future upcoming questions or concerns that they have regarding their management or follow-up in our [facility] breast [facility]. This note was dictated using Soricimed voice recognition software. Attempts at proofreading were made, but errors may occasionally still occur. I have reviewed Malia [facility] medical, surgical and other pertinent history in detail, and have updated medication and allergy information in the computerized patient record. REFERRING/PRIMARY PROVIDER(S) -Referring Provider for today's consult: Tucker Haywood MD -Primary Care Provider: Tucker Haywood ADDENDUM #1: PREOPERATIVE HISTORY AND PHYSICAL EXAMINATION NOTE FOR [facility]: DR. SMALLWOOD: HISTORY OF PRESENT ILLNESS See MD (Dr. Smallwood) follow up note from today's clinic visit. REVIEW OF SYSTEMS GENERAL/CONSTITUTIONAL: Negative for fever, chills, fatigue, recent weight gain or loss. HEENT: No visual disturbances. No hearing loss, tinnitus, sore throat, nosebleeds, and rhinorrhea. No dysphagia or odynophagia. CARDIOVASCULAR: Negative for palpitations, chest pain, dyspnea on exertion, orthopnea or paroxysmalnocturnal dyspnea. RESPIRATORY: No history of TB exposure. Negative for chronic or productive cough, hemoptysis, or asthma. GASTROINTESTINAL: Negative for abdominal pain, nausea, vomiting, diarrhea, constipation or changes in bowel habits. GENITOURINARY: Negative for dysuria or hematuria. No frequency, urgency, or hesitancy. MUSCULOSKELETAL: Negative for arthralgias, myalgias, or back pain. NEUROLOGICAL: Negative for dizziness, syncope, focal weakness or headaches. PSYCHIATRIC: Negative for depression, anxiety or mood disorders. SKIN: Negative for acute skin lesions. PAST MEDICAL HISTORY Past Medical History: Diagnosis Date Asthma Hypothyroidism Malignant neoplasm of lower-inner quadrant of right breast of female, estrogen receptor positive 01/20/2022 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, ER+/TX+/HER2- PAST SURGICAL HISTORY Past Surgical History: Procedure Laterality Date CORE BIOPSY OF THE BREAST Right 01/20/2022 invasive carcinoma BLADDER SUSPENSION 2012 mostly removed d/t infection HYSTERECTOMY 2012 BLADDER SUSPENSION 2006 ACL 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 Left 2005 MEDICATIONS Current Outpatient Medications Medication Sig Albuterol Sulfate 108 (90 Base) MCG/ACT Aerosol Powder, breath activated Inhale. Prn Bredavidtri Aerosphere 160-9-4.8 MCG/ACT Aerosol INHALE 2 PUFFS BY MOUTH TWICE DAILY esomeprazole [address] capsule Take 20 mg by mouth every morning before breakfast. furOSEmide 20 MG tablet Take 20 mg by mouth daily. meloxicam 15 MG tablet Synthroid 50 MCG tablet ALLERGIES Allergies Allergen Reactions Sumatriptan Other reaction(s): Mental Status Change, Other (See Comments) IMMUNIZATIONS There is no immunization history on file for this patient. 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 No LMP recorded. Patient has had a hysterectomy. FAMILY HISTORY Her family history includes Alzheimer's in her mother; Breast Cancer (age of onset: 40) in her maternal cousin; Cancer- Other in her maternal aunt and maternal cousin; Colorectal Cancer (age of onset: 48) in her sister; Diabetes in her brother, father, and sister; Heart Disease - Other in her maternal grandfather and maternal uncle; Leukemia in her maternal cousin; Other - Specify in her brother,brother, father, maternal aunt, and son; Ovarian Cancer in her maternal aunt; Thyroid Cancer in hermaternal grandmother. SOCIAL HISTORY She reports that she has never smoked. She has never used smokeless tobacco. She reports current alcohol use of about 1.0 standard drink of alcohol per week. She reports that she does not use drugs. PHYSICAL EXAMINATION VITAL SIGNS: BP 125/65 Comment: measured at [facility] appointment today Pulse 83 Comment: measured at [facility]appointment today Temp 97.7 F (36.5 C) (Oral) Comment: measured at [facility] appointment today Resp 16Comment: measured at [facility] appointment today Wt 65 kg (143 lb 6.4 oz) Comment: measured at [facility] appointment today BMI 25.00 kg/m Smoking Status Never Smoker , Body mass index is 25 kg/m . GENERAL: Well developed and well nourished female. No acute distress. HEENT: Head: Normocephalic and atraumatic. Eyes: Pupils are equal, round, and reactive to light andaccomodation. Neck: Supple, non-tender. No tracheal deviation. No thyromegally. HEART: Regular rate and rhythm. Normal S1, S2. No murmurs, rubs or gallops. LUNG/CHEST: Lungs are clear to auscultation bilaterally. No wheezes, rhonchi or rales noted. BREAST: per attached MD clinic note. LYMPH NODES: per attached MD clinic note. ABDOMEN: Abdomen with normoactive bowel sounds in all four quadrants. Soft, non- tender, non-distended. No organomegaly. EXTREMITIES: Normal range of motion in all four extremities, with normal strength equally and symmetrically. No cyanosis or clubbing or peripheral edema. VASCULAR: 2+ distal pulses in upper and lower extremities. 2+ carotid pulses without carotid bruits. NEUROLOGICAL: Conscious, alert and oriented. Grossly intact. SKIN: Skin is warm and dry. No skin lesions. ASSESSMENT AND PLAN Preoperative testing and teaching have been completed today. She verbalizes understanding of all explained to her today regarding her upcoming surgery. Medications reviewed with patient in preparation for her upcoming surgery. All above information has been reviewed by Dr. Smallwood. I have reviewed [facility]ia [facility] medical, surgical and other pertinent history in detail, and have updated medication and allergy information in the computerized patient record. [facility] Surgical operation note* Gertrudis Swartz RN - 04/10/2022 5:28 AM EDT Patient denies hx of chemo and radiation. Patient denies metal or foreign objects in body, except Rheel replacement. Patient denies hx of seizure or stroke. [facility]07-22-2022 Instructions* Patient Instructions* Kelsie Hathaway RN - 03/20/2022 3:46 PM EDT Images from the original note were not included. Store your prescribed pain medication in a locked cabinet or in an area only accessible to you. When you no longer need your prescribed pain medication, dispose of it immediately by one of the safe methods listed below: TAKE BACK PROGRAM: A drug take-back program is the best method to dispose of un- needed opioids safely. You can locate the take-back program closest to you @ https://takebackday.meir.gov under the COLLECTION SITE NURSERY HELPER tab. Never dispose of un-needed medications down the sink or toilet. Instead, crush the medication and mix with damp coffee grounds or cat litter, place in a sealed plastic freezer bag, and dispose of in your regular trash. Your Medical/Oncology Team Doctor: Mel Giorn MD Nurse Practitioner: Barbara Santiago APRN-PHARMACEUTICAL WORKER Primary Nurses: DARLENE DejesusN, RN, Ragini CONTRACT PROCESSOR, Kelsie RN, BSN, OCN We are available to take calls Wednesday-Wednesday 8:00am-4:30pm. During non-business hours and holidays phone calls will be managed by after-hours [facility] RN's. Please allow at least 10 business days for your team to complete any paperwork. When requesting medication refills, please try to provide as much notice as possible (5 days) in order to ensure that you do not run out of medication. documented [facility] this [facility] History of Present illness Narrative* Mel Giron MD - 03/20/2022 3:30 PM EDT Images from the original note were not included. Malia Cook is a 61 y.o. female who presents today to the [facility] for a new patient evaluation and to establish a plan of care. Referring Provider: Marlene Olivas APR* Breast Surgeon: Dr. Smallwood Plastic Surgeon: Radiation Oncologist: Dr. Gomez PCP: Dr. Tucker Haywood Date of Diagnosis: 01/20/2022 Encounter Date: 03/20/2022 Diagnosis: Stage IB T2cN0 invasive carcinoma with mixed ductal and lobular features, well differentiated , ER positive (>90%), TX positive (80-90%), HER-2 equivocal (IHC 2+), FISH negative (HER2/CEP17 1.8, HER-2 copy number 3.73) Current Treatment: TBD History of Present Illness: Nando presents for initial consultation. Her oncologic history was reviewed and confirmed below. Overall, she continues to feel well. No headaches, vision changes, chest pain, shortness of breath, abdominal pain, changes in bowel habits, neuropathy, skin changes. She has mild, 1/10 pain in her right breast. No other areas of pain or discomfort. ONCOLOGIC HISTORY: Briefly, Malia Cook's oncologic history is summarized by the followin01/15/22 Mammo/US: RIGHT BREAST: Macro lobulated spiculated opacity within the posterior lower inner quadrant corresponding to patient's palpable lump. Ultrasound evaluation demonstrates a 4.5 x 1.8 x 1.5 cm lobular, spiculated, heterogeneous mass at the 5 o'clock position, 3.2 cm from the nipple, concerning for malignancy 01/20/22 Right Breast Bx 5:00 position (1.9cm) Grade 1, Invasive Carcinoma with mixed ductal and lobular features ER >90%, TX 80-90%, HER 2 IHC: 2+, FISH ratio: 1.8, Average HER 2 signal/cell: 3.73 02/24/[address] Smallwood, MRI ordered 02/27/22 MRI Breast: The right breast biopsy-proven malignancy is identified in the inferior central and inferior medial aspects measuring 4.5 x 2.9 x 3.0 cm.There is no axillary lymph adenopathy 03/04/22 Genetic Testing: negative 03/20/22 Dr Giron to establish care Interval History of Events 03/20/2022 : Chief Complaint Patient presents with New Patient Health Maintenance: Health Maintenance Topic Date Due TSH Never done HEPATITIS C VIRUS SCREENING Never done COVID-19 VACCINE (1) Never done HIV SCREENING DISCUSSION Never done TETANUS Never done TDAP (ADULT) Never done CERVICAL CANCER SCREENING DISCUSSION Never done LIPID SCREENING Never done COLORECTAL CANCER SCREENING DISCUSSION Never done ZOSTER (SHINGLES) VACCINE (1 of 2) Never done INFLUENZA VACCINE (1) 04/30/2022 MAMMOGRAM SCREENING DISCUSSION 01/20/2023 POTASSIUM 02/24/2023 PNEUMOCOCCAL VACCINE SERIES Aged Out Learning Support Resource Room Teacher History: Breast cancer risk factors include family hx on mother's side, family hx of ovarian CA and family hx of colon CA. Age of menarche was 12. Age of menopause was: 2011. Last menstrual period was N/a. Patient admits to hormonal therapy for 15 years Patient denies oral contraceptive therapy. Patient is . No breast feeding Age of first live was 16. Patient admits to to previous breast biopsy(s). Patient admits to a personal history of breast cancer. Medical/Surgical History: Past Medical History: Diagnosis Date Hypothyroidism Malignant neoplasm of lower-inner quadrant of right breast of female, estrogen receptor positive 01/20/2022 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, ER+/TX+/HER2- Past Surgical History: Procedure Laterality Date CORE BIOPSY OF THE BREAST Right 01/20/2022 invasive carcinoma HYSTERECTOMY 2011 BLADDER SUSPENSION 2005 ACL 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 Left 2004 Family/Social History: Her family history includes Alzheimer's in her mother; Cancer- Other in her maternal aunt and maternal cousin; Colorectal Cancer (age of onset: 48) in her sister; Diabetes in her brother, father, andsister; Heart Disease - Other in her maternal grandfather and maternal uncle; Other - Specify in her brother, brother, father, maternal aunt, and son; Ovarian Cancer in her maternal aunt; Thyroid Cancer in her maternal grandmother. She reports that she has never smoked. She has never used smokeless tobacco. She reports current alcohol use of about 1.0 standard drink of alcohol per week. She reports that she does not use drugs. Medications/Allergies/Immunizations: Her current medication(s) include has a current medication list which includes the following prescription(s): Breztri Aerosphere 160-9-4.8 MCG/ACT Aerosol, esomeprazole [address] capsule, estradiol 0.5 MG tablet, furOSEmide 20 MG tablet, meloxicam 15 MG tablet, and Synthroid 50 MCG tablet. Allergies: Sumatriptan Review of Systems: General/Constitutional: Negative for fever, chills, fatigue, recent weight gain or loss. HEENT: No visual disturbances. No hearing loss, tinnitus, sore throat, nosebleeds or rhinorrhea. Nodysphagia. Cardiovascular: Negative for palpitations, chest pain or dyspnea on exertion. Respiratory: Negative for chronic or productive cough, hemoptysis, or asthma. Gastrointestinal: Negative for abdominal pain, nausea, vomiting, diarrhea, constipation or changes in bowel habits. Genitourinary: Negative for dysuria or hematuria. No frequency, urgency, or hesitancy. Musculoskeletal: Negative for arthralgias, myalgias, or back pain. Neurological: Negative for dizziness, focal weakness or headaches. Psychiatric: Negative for depression, anxiety or mood disorders. Lymph/Heme: No history of hematologic malignancies or bleeding disorders. Endocrine: Negative for polyuria, polydipsia or hot/cold intolerance Skin: Negative for acute skin lesions. Physical Exam: Vitals: BP 120/71 (BP Location: Left arm, BP Position: Sitting) Pulse 67 Temp 97.7 F (36.5 C) (Oral) Resp 16 Wt 63.7 kg (140 lb 6.4 oz) SpO2 100% BMI 24.48 kg/m Smoking Status Never Smoker Patient's Current Performance Status 0 General/Constitutional: Well developed, well nourished female, who looks their stated age of 61 y.o.. No acute distress. HEENT: Head: Normocephalic and atraumatic. Eyes: Pupils are equal, round, and reactive to light andaccomodation. Extraocular movements are intact. Sclerae are anicteric. Neck: Supple, non-tender, with no lymphadenopathy. Cardiac: Regular rate and rhythm. Normal S1, S2. No murmurs, rubs or gallops. Pulmonary/Chest: Lungs are clear to auscultation bilaterally. No wheezes, rhonchi or rales noted. Abdominal: Abdomen with normoactive bowel sounds in all four quadrants. Soft, non-tender, non-distended. No organomegaly. Extremities: Normal range of motion in all four extremities, with normal strength equally and symmetrically. No cyanosis or clubbing or peripheral edema. Neurological: Conscious, alert and oriented. Cranial nerves II through XII are intact grossly and symmetrically. No focal neurologic deficit. Skin: Skin is warm and dry. She is not diaphoretic. Psychiatric: Appropriate mood and affect. Back: No CVA or point vertebral tenderness. Lymph: No supraclavicular or axillary adenopathy. Right Breast: palpable mass between 5 and 6 o'clock in inferior central/medial breast measuring ~5cm x 3cm, no nipple inversion, no skin changes, no right axillary lymphadenopathy Left Breast: normal without suspicious masses, skin or nipple changes or axillary nodes Chest Wall: No abnormalities noted. Imaging Data/Laboratory data: Imaging Data: EXAM: BREAST IMAGING SECOND OPINION READING, 02/18/2022 MAMMOGRAM FINDINGS: The breasts have scattered areas of fibroglandular density. With regard to bilateral diagnostic mammogram of January 15, 2022 in the lower inner right breast thereis an irregularly-shaped isodense mass with spiculated margins and associated architectural distortion. There is some retraction of the skin inthe lower pole the right breast. Mammographically the central core of the mass measures approximately 4.5 x 2.9 x 3.0 cm. No additional definitive dominant mass, distortion, or suspicious Patricio calcification either breast. With regard to the postbiopsy mammogram of January 20, 2022 there is a appropriately positioned biopsy clip at the inferolateral aspect of the mass. ULTRASOUND FINDINGS: With regard to the right breast ultrasound of January 15, 2022 in the 11:00 position of the right breast approximately 3.2 cm from the nipple there is an irregular shaped hypoechoic mass with spiculated margins and associated vascular flow. The outside institution measures the mass at 4.5 x 1.8 x 1.5 cm. The latter 2 of the 3 measurements appear to underestimate the size of the mass. IMPRESSION: Biopsy-proven carcinoma in the 5:00 right breast as described above. EXAM: US BREAST LIMITED UNILATERAL RIGHT, US AXILLA FOR MAMMOGRAPHY RIGHT, 02/24/2022 FINDINGS: The biopsy-proven malignancy and associated clip is again demonstrated at the 5:00 zone 2 position. This consists of a markedly irregular ill-defined hypoechoic mass which on today's exam measures approximately 4.7 x 2.7 x 4.5 cm. Clip is noted within the mass. Evaluation of the right axilla demonstrates 2 lymph nodes with maintained normal morphology. No suspicious axillary lymph nodes are identified. IMPRESSION: 1. Biopsy-proven malignancy with measurements as described above. 2. Normal appearance of the right axilla. BI-RADS: 6: Known biopsy proven malignancy Recommendation: Surgical excision when clinically appropriate. Recommendation Laterality: Right EXAM: MRI BREAST BILATERAL WITH AND WITHOUT CONTRAST, 02/27/2022 FINDINGS: Amount of fibroglandular tissue: heterogenous fibroglandular tissue. Background parenchymal enhancement: moderate symmetric. The right breast biopsy-proven malignancy is identified in the inferior central and inferior medialaspects consisting of a good: Irregular poorly marginated mass. Associated tissue marker is noted. This mass measures 4.5 x 2.9 x 3.0 cm. The massdoes not appear to abut or invade the chest wall There are scattered benign cysts in the left breast. There is no dominant mass, architectural distortion or area of suspicious enhancement in the left breast. Axilla: There is no axillary lymphadenopathy. Internal Mammary Chain: There is no internal mammary lymphadenopathy. Extramammary soft tissues: Unremarkable. IMPRESSION: 1. Biopsy proven malignancy in the inferior right breast as described. Continued clinical management recommended. 2. No MR evidence of malignancy in the left breast. Bi-RADS: 6: Known biopsy proven malignancy Recommendation: Surgical excision when clinically appropriate. Recommendation Laterality: Right Other Data: Labs: WBC Count Date Value Ref Range Status 02/24/2022 4.25 3.99 - 11.19 K/uL Final Hemoglobin Date Value Ref Range Status 02/24/2022 13.4 11.4 - 15.2 g/dL Final Hematocrit Date Value Ref Range Status 02/24/2022 40.7 34.9 - 44.3 % Final Platelet Count Date Value Ref Range Status 02/24/2022 196 150 - 393 K/uL Final Mean Cell Volume Date Value Ref Range Status 02/24/2022 97.8 (H) 79.6 - 97.7 fL Final ALT Date Value Ref Range Status 02/24/2022 18 9 - 48 U/L Final AST Date Value Ref Range Status 02/24/2022 21 10 - 39 U/L Final Albumin Date Value Ref Range Status 02/24/2022 4.7 3.5 - 5.0 g/dL Final Bilirubin Direct Date Value Ref Range Status 02/24/2022 0.1 <0.3 mg/dL Final Bilirubin Total Date Value Ref Range Status 02/24/2022 0.5 <1.5 mg/dL Final BUN Date Value Ref Range Status 02/24/2022 12 7 - 25 mg/dL Final Creatinine Date Value Ref Range Status 02/24/2022 0.76 0.50 - 1.20 mg/dL Final Total Protein Date Value Ref Range Status 02/24/2022 7.4 6.4 - 8.3 g/dL Final Glucose Date Value Ref Range Status 02/24/2022 99 70 - 99 mg/dL Final Potassium Date Value Ref Range Status 02/24/2022 3.9 3.5 - 5.0 mmol/L Final Chloride Date Value Ref Range Status 02/24/2022 106 98 - 108 mmol/L Final Impression and Recommendations: Impression: Malia Cook is a postmenopausal female diagnosed in December 2021 with at least stage IBstrongly hormone positive, Her-2 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 She is here today for new patient evaluation. Cancer Staging Malignant neoplasm of lower-inner quadrant of right breast of female, estrogen receptor positive Staging form: Breast, AJCC 8th Edition - Clinical stage from 01/20/2022: Stage IB (cT2, cN0, cM0, G1, ER+, TX+, HER2-) Planned Therapy: Surgery 04/10/2022 Current Therapy: None Imaging: None Recommendations: 1. Breast Cancer: -We reviewed Nando's diagnosis in detail. She has at least a stage IB invasive carcinoma with both ductal and lobular carcinoma. It is strongly hormone positive (ER >90%, TX 80-90%) and Her-2 negative (FISH ratio 1.8). Her mass is estimated to be 4.5 x 2.9 x 3.0cm on MRI breast. She is clinically lymph node negative. I agree with surgery first approach. Final systemic treatment recommendations will be based on final pathology. For postmenopausal women with less than 3 positive lymph nodes and primary tumors ? 5cm in size, an Oncotype Dx score is indicated and for scores less than 26 there isnot anticipated to be a benefit of adjuvant chemotherapy based on TAILORx and RxPONDER trials. Thus, if final pathology demonstrates a mass ~5cm in size and less than 3 lymph nodes positive, I would recommend ordering an Oncotype Dx. Will plan for her to return after surgery for final pathology review, review of Oncotype Dx and final systemic treatment planning -We discussed that irrespective of chemotherapy plan, adjuvant endocrine therapy would be recommended for her given her hormone positive disease. Endocrine therapy would be recommended for a minimum of 5 years and given postmenopausal status, aromatase inhibitor is standard of care. We reviewed common and serious adverse effects of aromatase inhibitors were reviewed including arthralgias, joint stiffness, vasomotor symptoms, vaginal dryness, dyspareunia, and increased bone thinning. -Surgery scheduled for 04/10/2022 -Return 2-3 weeks after surgery for pathology review 2. Supportive Care -Not currently indicated 3. Bone Health A. No previous DXA screening performed. Will plan to obtain baseline DXA prior to initiation of aromatase inhibitor (AI) therapy. 4. Fertility Preservation: Postmenopausal and completed desired child bearing. Fertility preservation and referral to endocrinology were NOT discussed. 5. Healthy Lifestyle A. Reviewed importance of healthful lifestyle choices including maintaining healthy weight and continuing active aerobic exercise as tolerate. Discussed goal for balanced diet with adequate intake offruits and vegetables. Also reviewed goal of 150 minutes of aerobic exercise per week. 6. Survivorship: This patient's Survivorship visit will be completed within 6 months of completing chemo or within 6 months of starting endocrine therapy. [facility] 05/06/2022 for pathology review. All of the patient's questions were addressed. They were given our office contact information to reach us with further questions. Mel Giron MD, MEd Cd Technician of Internal Medicine Division of Medical Oncology [facility] documented in this [facility]07-22-2022 Instructions* Patient Instructions* Deepti Gomez MD, PhD - 03/20/2022 2:15 PM EDT -Based on the available information, you have breast cancer of your right breast -Your breast cancer cells are: ER positive, TX positive, and HER2 negative. -Based on this, the next step is generally surgery -You are scheduled for mastectomy. -If you decide to have mastectomy, no radiation would be necessary if your underarm lymph nodes arenegative. However, we would recommend radiation after mastectomy if your lymph nodes are positive. -Radiation therapy after mastectomy is generally given over 5 weeks -The role of chemotherapy and hormone therapy will be discussed with you in more detail with Medical Oncology today. -If your lymph nodes are positive after surgery, please give us a call to schedule a follow up visit 3-4 weeks after surgery. -It was a pleasure to meet you today and please call [phone] if you have any questions Deepti Gomez M.D., Ph.D. Radiation Oncology [facility] documented in this encounterOS[facility] History of Present illness Narrative* Barbara Escobedo, PAPER WOOD CUTTER-PHARMACEUTICAL WORKER - 03/20/2022 1:30 PM EDT RADIATION ONCOLOGY NEW PATIENT VISIT NOTE DOS: 03/20/2022 REFERRING PROVIDER: Stuart Smallwood MD OTHER PROVIDERS: Dr. Smallwood, Dr. Daily, Dr. Giron IDENTIFICATION: Malia Cook is a 61 y.o. postmenopausal woman with clinical anatomic stage IIA / prognostic stage IB (cT2 cN0) grade 1 invasive carcinoma with mix ductal and lobular feature of the RIGHT breast that is ER positive (>90%), TX positive (80-90%), HER2 (2+) by IHC, FISH - negative (HER2/CEP17: 1.8) and has undergone biopsy on 01/20/22. She is here for treatment recommendations. CHRONOLOGICAL HPI: Lump felt in right breast around the beginning of 2021. She had cysts before and they normally wentaway until around Mother's Day when she saw puckering of the skin and realized it was more than just a cyst. She then went for evaluation. 01/15/22: Bilateral diagnostic mammogram w kathy & Right breast US: macro lobulated spiculated opacity within the posterior lower inner quadrant corresponding to patients palpable lump. On US showslobular, spiculated, heterogeneous mass at 5:00 position, 3.2 cm FN, measuring 4.5 x 1.8 x 1.5 cm. C oncerning for malignancy (BIRADS 4) 01/20/22: right breast US biopsy, 5:00: -invasive carcinoma with mix ductal and lobular feature, grade 1 - ER positive (>90%), TX positive (80-90%), HER2 (2+) by IHC, FISH - negative (HER2/CEP17: 1.8) 02/18/22: [facility] radiology second opinion read: Biopsy-proven carcinoma in the 5:00 right breast. Mammographically the central core of the mass measures approximately 4.5 x 2.9 x 3.0 cm. 02/24/22: Establish care with Dr. Smallwood of Surgonc. recommend repeating right breast ultrasound tobetter size the overall sonographic abnormality within the right breast representing her right breast cancer process. We discussed obtaining right axillary ultrasound to sonographically evaluate her right axillary lymph nodes. We discussed the possibility of consideration of subsequently ordering bilateral breast MRI on the patient. Recommend right mastectomy. Scheduled on 04/10/22. Right breast US & right axilla US: 1. The biopsy-proven malignancy and associated clip is againdemonstrated at the 5:00 zone 2 position. This consists of a markedly irregular ill-defined hypoechoic mass which on today's exam measures approximately 4.7 x 2.7 x 4.5 cm. Clip is noted within the mass. Normal appearance of the right axilla. (BI-RADS: 6: Known biopsy proven malignancy) CXR: No acute cardiopulmonary disease 02/27/22: Bilateral breast MRI wwo contrast: 1. The right breast biopsy-proven malignancy is identified in the inferior central and inferior medial aspects consisting of a good: Irregular poorly marginated mass. Associated tissue marker is noted. This mass measures 4.5 x 2.9 x 3.0 cm. The mass does not appear to abut or invade the chest wall. 2. No MR evidence of malignancy in the left breast. (Bi-RADS: 6: Known biopsy proven malignancy) 03/04/22: Establish care with Dr. Daily of Plastics. Patient stated that they wish to proceed with: right mastectomy and immediate breast reconstruction with tissue family practice physician Seen by Genetic counselor, SIOMARA Scott- does not have any pathogenic variants (mutations) in any of the genes on this panel. She will see [facility] later today She presents today feeling well. She is from [place], [place] (2[place]5 hours away, near [place]) with her . 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 She is not in any pain. She noticed some skin dimpling which coupled with feeling the mass caused her to seek care. No chest pain, shortness of breath, no vision changes or dizziness, no nausea or vomiting, no new bone or back pains, no other concerning symptoms. BREAST CANCER RISK FACTORS: Age at menarche: 12 Age at 1st delivery: 16 Age at menopause: 51 Use of HRT: Estradiol x 15 years Prior benign breast biopsies: No Family Hx of Breast CA: Maternal 1st cousin (40) Family Hx of Ovarian CA: Maternal aunt (85) Prior exposure to radiation: no Radiation History: History of prior radiation: no History of auto-immune disease: no History of connective tissue disorder: no Pacemaker: no Able to lay flat: no Transportation available: yes ALLERGIES: Allergies Allergen Reactions Sumatriptan Other reaction(s): Mental Status Change, Other (See Comments) MEDICATIONS: Current Outpatient Medications Medication Sig Dispense Refill Bredavidtri Aerosphere 160-9-4.8 MCG/ACT Aerosol INHALE 2 PUFFS BY MOUTH TWICE DAILY esomeprazole [address] capsule Take 20 mg by mouth every morning before breakfast. furOSEmide 20 MG tablet Take 20 mg by mouth daily. meloxicam 15 MG tablet Synthroid 50 MCG tablet No current facility-administered medications for this visit. PAST MEDICAL/SURGICAL HISTORY: Past Medical History: Diagnosis Date Hypothyroidism Malignant neoplasm of lower-inner quadrant of right breast of female, estrogen receptor positive 01/20/2022 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, ER+/TX+/HER2- Past Surgical History: Procedure Laterality Date CORE BIOPSY OF THE BREAST Right 01/20/2022 invasive carcinoma HYSTERECTOMY 2012 BLADDER SUSPENSION 2006 ACL 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 Left 2004 FAMILY HISTORY: Family History Problem Relation Age of Onset Alzheimer's Mother Diabetes Father Other - Specify Father pacemaker Colorectal Cancer Sister 48 Diabetes Sister Other - Specify Brother COD undetermined, lung problems, d. 69 Other - Specify Brother COD undetermined, lung problems, d. 70 Diabetes Brother Thyroid Cancer Maternal Grandmother dx. young, also had goiter removed, d. 82 Heart Disease - Other Maternal Grandfather d. <60 Cancer- Other Maternal Cousin CaSU Ovarian Cancer Maternal Aunt d. 85 Cancer- Other Maternal Aunt CaSU, d. 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 Patient has had a hysterectomy.. Last PAP: unsure Para: 3 Age at of first child: 16 Age of menarche: 12 Age of menopause: 2011 Patient admits to hormonal therapy at this time. BREAST (GENERAL): Patient admits to self-breast exams and does them monthly. Date of patient's first mammogram: 08/2018 Date of most recent mammogram: 01/20/22 Bra/Cup Size: 36C BREAST(HISTORICAL BIOPSY/THERAPY/TREATMENT) Patient admits to previous breast biopsy(s). Patient admits to being told they personally have breast cancer or a breast malignancy. Patient denies chemotherapy, hormone therapy or radiation therapy during the last month. Social Determinants of Health Financial Resource Strain: Low Risk Difficulty of Paying Living Expenses: Not hard at all Food Insecurity: No Food Insecurity Worried About Running Out of Food in the Last Year: Never true Ran Out of Food in the Last Year: Never true Transportation Needs: No Transportation Needs Lack of Transportation (Medical): No Lack of Transportation (Non-Medical): No Housing Stability: Unknown Unable to Pay for Housing in the Last Year: No Unstable Housing in the Last Year: No ROS: A comprehensive review of systems was reviewed and is negative, except as stated in the HPI. PHYSICAL EXAM: Vital Signs: There were no vitals filed for this visit. ECOG PS: 0 General: Well-appearing, no acute distress HEENT: Head Normocephalic/ Atraumatic. PERRLA. EOMI. Sclera anicteric. Oral Cavity/Oropharynx clearwithout lesions. Neck: Supple, no thyromegaly Lymph: No palpable peripheral cervical, supraclavicular, infraclavicular or axillary adenopathy. Cardiac: RRR. No m/r/g Lungs: Speaks in full sentences. CTAB. No wheezes/rhonchi. Breasts: Right breast mass at 5:00-6:00 PM that is mobile and measures approximately 3cm. Normal nipple areolar complex. Left breast is normal in size and contour with no dominant or palpable masses and a normal nipple areolar complex. No skin changes bilaterally. No nipple changes bilaterally. Abdomen: Soft, non-tender, non-distended with normoactive bowel sounds. No HSM. Extremities: No peripheral edema. Skin: Warm, dry, clear Neurologic: Conscious, alert and orient. No focal motor/sensory deficits. Cerebellar function intact to Hannah and [id number]-[id number]. Psychiatric: Appropriate mood. IMAGING: Imaging reviewed as per HPI. LABS: CBC Lab Results Component Value Date WBC 4.25 02/24/2022 HGB 13.4 02/24/2022 HCT 40.7 02/24/2022 PLATELET 196 02/24/2022 MCV 97.8 (H) 02/24/2022 EDIF Lab Results Component Value Date RBCDISTRIBU 12.1 02/24/2022 PLATELET 196 02/24/2022 MPV 11.5 02/24/2022 ASSESSMENT PLAN: In summary, this is a Malia Cook is a 61 y.o. female postmenopausal woman with clinical anatomic stage IIA / prognostic stage IB (cT2 cN0) grade 1 invasive carcinoma with mix ductal and lobular feature of the RIGHT breast that is ER positive (>90%), TX positive (80-90%), HER2 (2+) by IHC, FISH - negative (HER2/CEP17: 1.8) and has undergone biopsy on 01/20/22. She is here fo r treatment recommendations. We discussed in general the natural history and treatment approach to early stage breast cancer, aswell as the rationale for including radiation as part of the treatment approach. The options for local regional treatment of her breast cancer were reviewed. She has discussed mastectomy and is scheduled for mastectomy in March 2022. She was not a good candidate for lumpectomy due to the size and location of the tumor. It was explained that there is a small chance that if she undergoes mastectomy and positive lymph nodes are found there may be a role for post mastectomy radiation therapy. We reviewed with patient the acute side effects of treatment and the risk potential for late complications. She was made aware that the acute side effects she may experience include, but are not limited to, skin erythema, tanning, breast discomfort, peeling, breast swelling, and fatigue. The temporary nature of these symptoms was explained, the supportive therapies that are available should they occur reviewed and the average timeline for their resolution was given. We did discuss that there marck risk for permanent complications from breast irradiation. These include but are not limited to a,10-15% risk of permanent skin color change on the treated breast that is usually tanning but can behypopigmentation, a 10-15 % risk of increased firmness of the breast that does not generally alter the breast appearance significantly and a 2-3% risk of severe radiation fibrosis that can impact thebreast appearance. Finally there is a remote < 0.1% risk for a secondary cancer. Malia Cook appeared to have a good understanding of all that was discussed and her questions appeared to be answered to her satisfaction. She can return as needed following mastectomy, if her lymph nodes are positive, for further discussion of treatment options. Otherwise, we are available as needed should she have any questions or concerns in the future. Thank you for allowing us to participate in the management and care of this pleasant patient. The above plan was discussed with Dr. Gomez. Please do not hesitate to contact us with any questions. Barbara Escobedo, MSN, PAPER WOOD CUTTER-PHARMACEUTICAL WORKER Polina AKOSUA [facility], Radiation Oncology [facility], [place] [address] Office [email or web address] I saw and independently examined this patient today. I discussed my findings and the therapeutic plan with the MUD LOGGER. I agree with the MUD LOGGER's history, physical examination, and medical decisions as outlined. Malia Cook is a 61 y.o. postmenopausal woman with clinical anatomic stage IIA / prognostic stage IB (cT2 cN0) grade 1 invasive carcinoma with mix ductal and lobular feature of the RIGHT breast that is ER positive (>90%), TX positive (80-90%), HER2 (2+) by IHC, FISH - negative (HER2/CEP17: 1.8) and has undergone biopsy on 01/20/22. She is here for treatment recommendations. The patient met with Dr. Smallwood and mastectomy is scheduled for March 2022. They discussed that she is not a good candidate for lumpectomy due to the size and location of the tumor. On physical exam, she does have a palpable inferior right breast mass. A/P: We discussed that breast conservation therapy and mastectomy have the same outcomes. The patient prefers a mastectomy. Since she is scheduled for mastectomy, she will not need radiation if the lymph nodes are negative. If the lymph nodes are positive, she will need 25 daily radiation treatments to the right chestwall and regional lymph nodes. We will see her back as needed. She understands that she will schedule a follow up 3-4 weeks after surgery should she have positive nodes on final pathology. She will meet with medical oncology later today. Deepti Gomez M.D., Ph.D. Cd Technician in Radiation Oncology Pager: [phone] * Cara García RN - 03/20/2022 1:30 PM EDT Breast Cancer (New patient visit for discussion of Radiation Therapy for RIGHT Breast Cancer ) The patient resides with [facility]. The patient does have available transportation. Pain Assessment: Presence of Pain: denies pain/discomfort Patient Concerns: None at this time Malia Cook was not offered a Medical Civil Service Worker for this exam/procedure/test 03/20/2022. Report given to Barbara Escobedo APRN-EDEN García RN documented in this [facility] Hospital Discharge instructions* Patient Instructions* Mark Bhatt RN - 03/18/2022 9:02 AM EDT Post exercise patient instructions: It is normal to feel fatigued the afternoon and evening after an exercise test. You are free to resume normal activity after testing. However, you should refrain from exercise or other intense activity until you are cleared by your referring physician. Drinking at least 1-2 cups of water and stretching your leg muscles in the evening after testing isrecommended. These steps will help clear lactic acid from the muscles, reduce leg cramps, and minimize muscle soreness which are possible after exercise stress testing. Resume taking your normal medications as prescribed or instructed after testing. After the completion of your nuclear test at the [facility] [place], you should be awareof the following information: Other than mild fatigue and muscle soreness, there are no residual symptoms or physiological effects associated with this nuclear study. If you should feel different than normal after the test, please contact the physician who scheduled the exam. If you think this is an emergency, either dial 911 or go to the nearest emergency room. Your testing was supervised by Dr. Modesto mendiola. A qualified and licensed [facility] case management manager will interpret your study and a final report of the results will be forwarded to your physician within 24 hours. You will get the results of your test directly from the ordering physician or a physician on yourcare team. The technologist performing your exam will not give you final results. You have been administered a low dose amount of radioactive material that will be in your system for about three days. This amount is approximately 5% of the limit that would require modification to your daily activities. Because of this minimal activity, there are no restrictions with regards to exposure to other individuals, traveling, personal hygiene, or any other routine activity. If you are or , however, there are restrictions. Please notify the technologist if this is the case. (Reference: [id number], Volume 9, Revision 2, Appendix U). If you have any questions or concerns regarding your exam, please call the [place] office at [phone] Wednesday through Wednesday, between the hours of 8:00 AM and 4:00 PM. For medical emergencies, please call 911 or go to your nearest emergency room. To Whom It May Concern: Our patient,Malia Cook, was seen at The [facility] [place] on 03/18/22 for a nucleartest of the heart. During the course of this myocardial perfusion imaging study, our patient received a radioactive isotope, technetium (Tc-99m). Tc-99m emits gamma radiation with an energy of 140 Av and has a six hour half life. For this study, our patient received approximately 40 mCi of Tc-99m Cardiolite. The administered radioactivity will be below background levels within three days from the conclusion of the test. In the meantime, our patient may be detected as radioactive due to this study. If you have any further questions please contact our nuclear personnel at either [phone], Wednesday through Wednesday, between the hours of 8:00 AM and 4:00 PM. Thank you, Polina Salvador MD Chief Customer Officer and RSO [facility] [address] [place] [address] [place] [address] documented in this encounterU [facility] [facility] History of Present illness Narrative* Mark Bhatt RN - 03/18/2022 8:30 AM EDT Caffeine free for 24 hours. status no status no Pharmacologic nuclear stress procedure explained to patient. Risk/benefits of the procedure were reviewed and all questions were answered. Patient verbalized understanding. Patient was administered an lexiscan infusion during the procedure per the Physician's order. Patient was instructed prior to the test of the possible side effects of the medication. During the infusion patient did experience shortness of breath, dizziness, stomach cramping. Immediately after the infusion was stopped patient's symptoms subsided and vital signs returned to baseline. Patient tolerated procedure well. Patient was instructed to call 911 if they experience any chest pain, shortness of breath or other anginal equivalent more intense and/or frequent than before today's testing. Patient was ambulatory upon discharge from the clinic. [facility] History and physical note* Tyrell Daily MD - 03/04/2022 8:00 AM EDT Plastic and Reconstructive Surgery Consultation Referring Physician: Dr. Smallwood Reason for Consultation: Breast reconstruction ASSESSMENT/PLAN: This is a 61 y.o. female with a history of RIGHT breast cancer. The patient will require a mastectomy. Exam: Performed with: Kathe Liu RN Bra size: C Ptosis: grade 2 Autologous only donor sites: none Symmetry: right inferior pole more contracted Measurements (R, L; cm): BD: 12-12.5 b/l Plan: I discussed that the patient would be most suited to 2-stage implant-based reconstruction. After discussion, the patient stated that they wish to proceed with: right mastectomy and immediatebreast reconstruction with tissue family practice physician. We will schedule/coordinate surgery and the patient will return at their preoperative appointment. Please see below for additional details. A total of 40 minutes of mbkw-bl-dwyk time were spent in this encounter, of which >50% was spentin counseling and/or coordination of care. Tyrell Daily MD History of Present Illness: Malia Cook is a 61 y.o. female presenting for breast reconstruction evaluation. 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 estradiol 0.5 MG tablet furOSEmide 20 MG tablet Take 20 mg by mouth daily. meloxicam 15 MG tablet Synthroid 50 MCG tablet No facility-administered medications prior to visit. Social History Tobacco Use Smoking status: Never Smoker Smokeless tobacco: Never Used Substance Use Topics Alcohol use: Yes Alcohol/week: 1.0 standard drink Types: 1 Standard drinks or equivalent per week Drug use: Never Family History Problem Relation Age of Onset Colorectal Cancer Sister 50 Prostate Cancer Brother 60 Prostate Cancer Brother 66 Thyroid Cancer Maternal Grandmother Physical Examination BP 144/74 (BP Location: Right arm, BP Position: Sitting) Pulse 67 Temp 98.1 F (36.7 C) (Oral) Resp 16 Ht 1.613 m (5' 3.5 ) Wt 63.7 kg (140 lb 6.4 oz) SpO2 98% BMI 24.48 kg/m Smoking Status Never Smoker Estimated body mass index is 24.48 kg/m as calculated from the following: Height as of this encounter: 1.613 m (5' 3.5 ). Weight as of this encounter: 63.7 kg (140 lb 6.4 oz). General: well appearing, well nourished Chest: regular rate and rhythm Abdomen: - Rectus abdominis muscle: contracts normally bilaterally - Hernia: no - Diastasis: no Back: - Scars: no - Latissimus dorsi muscle: contracts normally bilaterally Extremities: warm and well perfused - Buttocks: deferred - Thighs: deferred Assessment and Plan A long, detailed conversation was had regarding the patient s options for breast reconstruction. Five main points, which are explained to all breast reconstruction patients, were discussed. 1. Breast reconstruction is an optional process. 2. Breast reconstruction is a multi-stage process which involves multiple surgeries spaced several months apart. The entire process can take over one year. 3. The major goal of breast reconstruction is to have the patient look normal in clothing. When naked, there will always be scars and asymmetries, some of which may not be completely addressed with surgery. 4. Asymmetries are often present during the reconstruction process. Several operations may be needed, including surgery to the non-cancerous breast, to achieve satisfactory results. 5. No matter the reconstructive method, there are ways that the reconstruction can fail and a secondary reconstructive plan would need to be created. A general discussion regarding all available methods of breast reconstruction were discussed. The types of reconstructions described included. 1. Two-stage and one-stage implant-based reconstruction. 2. Autologous only reconstructions, including free abdominal-tissue based reconstructions. 3. Combination procedures, particularly latissismus dorsi flaps combined with either expanders or implants. 4. Oncoplastic breast reconstruction. For each of the reconstruction methods mentioned above, the risks, benefits, alternatives, and complications were discussed in detail. Specific risks detailed included bleeding, infection, hematoma, seroma, scarring, pain, wound healing complications, need for reoperation (emergent, urgent, and elective), injury to structures that can result in loss of sensation, potential need for dressing changes, and asymmetry. With implant-based reconstruction, specific risks detailed included that implantsare not lifetime devices and will rupture in the long-term, capsular contracture, potential need for implant removal, breast implant associated anaplastic large cell lymphoma (risk approximately 1 in30,000), systemic symptoms (joint pain, fatigue, memory loss), need for follow-up evaluation including in some cases imaging (which may or may not be covered by insurance) even after breast reconstruction has been completed, rippling, and that implants contain chemicals and heavy metals. With autologous reconstruction, specific risks detailed included partial or complete flap loss, fat necrosis, donor site complications (such as bulge, hernia, umbilical necrosis). With oncoplastic reconstruction, specific risks discussed included nipple loss, and insensate nipple. In addition, I discussed howreconstructive surgery can potentially interfere with oncologic outcome (e.g., in cases of positivemargins on final pathology), and conversely how oncologic treatment can potentially interfere with reconstructive surgery outcome (e.g., in cases of unanticipated postmastectomy radiation therapy). Once all reconstruction options were presented, a focused discussion was had regarding the patient's suitability for each of these procedures. [facility] History and physical note* Tyrell Daily MD - 03/04/2022 8:00 AM EDT Plastic and Reconstructive Surgery Consultation Referring Physician: Dr. Smallwood Reason for Consultation: Breast reconstruction ASSESSMENT/PLAN: This is a 61 y.o. female with a history of RIGHT breast cancer. The patient will require a mastectomy. Exam: Performed with: Kathe Liu RN Bra size: C Ptosis: grade 2 Autologous only donor sites: none Symmetry: right inferior pole more contracted Measurements (R, L; cm): BD: 12-12.5 b/l Plan: I discussed that the patient would be most suited to 2-stage implant-based reconstruction. After discussion, the patient stated that they wish to proceed with: right mastectomy and immediatebreast reconstruction with tissue family practice physician. We will schedule/coordinate surgery and the patient will return at their preoperative appointment. Please see below for additional details. A total of 40 minutes of ucry-pp-xugr time were spent in this encounter, of which >50% was spentin counseling and/or coordination of care. Tyrell Daily MD History of Present Illness: Malia Cook is a 61 y.o. female presenting for breast reconstruction evaluation. 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 estradiol 0.5 MG tablet furOSEmide 20 MG tablet Take 20 mg by mouth daily. meloxicam 15 MG tablet Synthroid 50 MCG tablet No facility-administered medications prior to visit. Social History Tobacco Use Smoking status: Never Smoker Smokeless tobacco: Never Used Substance Use Topics Alcohol use: Yes Alcohol/week: 1.0 standard drink Types: 1 Standard drinks or equivalent per week Drug use: Never Family History Problem Relation Age of Onset Colorectal Cancer Sister 50 Prostate Cancer Brother 60 Prostate Cancer Brother 66 Thyroid Cancer Maternal Grandmother Physical Examination BP 144/74 (BP Location: Right arm, BP Position: Sitting) Pulse 67 Temp 98.1 F (36.7 C) (Oral) Resp 16 Ht 1.613 m (5' 3.5 ) Wt 63.7 kg (140 lb 6.4 oz) SpO2 98% BMI 24.48 kg/m Smoking Status Never Smoker Estimated body mass index is 24.48 kg/m as calculated from the following: Height as of this encounter: 1.613 m (5' 3.5 ). Weight as of this encounter: 63.7 kg (140 lb 6.4 oz). General: well appearing, well nourished Chest: regular rate and rhythm Abdomen: - Rectus abdominis muscle: contracts normally bilaterally - Hernia: no - Diastasis: no Back: - Scars: no - Latissimus dorsi muscle: contracts normally bilaterally Extremities: warm and well perfused - Buttocks: deferred - Thighs: deferred Assessment and Plan A long, detailed conversation was had regarding the patient s options for breast reconstruction. Five main points, which are explained to all breast reconstruction patients, were discussed. 1. Breast reconstruction is an optional process. 2. Breast reconstruction is a multi-stage process which involves multiple surgeries spaced several months apart. The entire process can take over one year. 3. The major goal of breast reconstruction is to have the patient look normal in clothing. When naked, there will always be scars and asymmetries, some of which may not be completely addressed with surgery. 4. Asymmetries are often present during the reconstruction process. Several operations may be needed, including surgery to the non-cancerous breast, to achieve satisfactory results. 5. No matter the reconstructive method, there are ways that the reconstruction can fail and a secondary reconstructive plan would need to be created. A general discussion regarding all available methods of breast reconstruction were discussed. The types of reconstructions described included. 1. Two-stage and one-stage implant-based reconstruction. 2. Autologous only reconstructions, including free abdominal-tissue based reconstructions. 3. Combination procedures, particularly latissismus dorsi flaps combined with either expanders or implants. 4. Oncoplastic breast reconstruction. For each of the reconstruction methods mentioned above, the risks, benefits, alternatives, and complications were discussed in detail. Specific risks detailed included bleeding, infection, hematoma, seroma, scarring, pain, wound healing complications, need for reoperation (emergent, urgent, and elective), injury to structures that can result in loss of sensation, potential need for dressing changes, and asymmetry. With implant-based reconstruction, specific risks detailed included that implantsare not lifetime devices and will rupture in the long-term, capsular contracture, potential need for implant removal, breast implant associated anaplastic large cell lymphoma (risk approximately 1 in30,000), systemic symptoms (joint pain, fatigue, memory loss), need for follow-up evaluation including in some cases imaging (which may or may not be covered by insurance) even after breast reconstruction has been completed, rippling, and that implants contain chemicals and heavy metals. With autologous reconstruction, specific risks detailed included partial or complete flap loss, fat necrosis, donor site complications (such as bulge, hernia, umbilical necrosis). With oncoplastic reconstruction, specific risks discussed included nipple loss, and insensate nipple. In addition, I discussed howreconstructive surgery can potentially interfere with oncologic outcome (e.g., in cases of positivemargins on final pathology), and conversely how oncologic treatment can potentially interfere with reconstructive surgery outcome (e.g., in cases of unanticipated postmastectomy radiation therapy). Once all reconstruction options were presented, a focused discussion was had regarding the patient's suitability for each of these procedures. [facility] History of Present illness Narrative* Tyrell Daily MD - 03/04/2022 8:00 AM EDT Plastic and Reconstructive Surgery Consultation Referring Physician: Dr. Smallwood Reason for Consultation: Breast reconstruction ASSESSMENT/PLAN: This is a 61 y.o. female with a history of RIGHT breast cancer. The patient will require a mastectomy. Exam: Performed with: Kathe Liu RN Bra size: C Ptosis: grade 2 Autologous only donor sites: none Symmetry: right inferior pole more contracted Measurements (R, L; cm): BD: 12-12.5 b/l Plan: I discussed that the patient would be most suited to 2-stage implant-based reconstruction. After discussion, the patient stated that they wish to proceed with: right mastectomy and immediatebreast reconstruction with tissue family practice physician. We will schedule/coordinate surgery and the patient will return at their preoperative appointment. Please see below for additional details. A total of 40 minutes of mrfm-cv-nffu time were spent in this encounter, of which >50% was spentin counseling and/or coordination of care. Tyrell Daily MD History of Present Illness: Malia Cook is a 61 y.o. female presenting for breast reconstruction evaluation. 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 estradiol 0.5 MG tablet furOSEmide 20 MG tablet Take 20 mg by mouth daily. meloxicam 15 MG tablet Synthroid 50 MCG tablet No facility-administered medications prior to visit. Social History Tobacco Use Smoking status: Never Smoker Smokeless tobacco: Never Used Substance Use Topics Alcohol use: Yes Alcohol/week: 1.0 standard drink Types: 1 Standard drinks or equivalent per week Drug use: Never Family History Problem Relation Age of Onset Colorectal Cancer Sister 50 Prostate Cancer Brother 60 Prostate Cancer Brother 66 Thyroid Cancer Maternal Grandmother Physical Examination BP 144/74 (BP Location: Right arm, BP Position: Sitting) Pulse 67 Temp 98.1 F (36.7 C) (Oral) Resp 16 Ht 1.613 m (5' 3.5 ) Wt 63.7 kg (140 lb 6.4 oz) SpO2 98% BMI 24.48 kg/m Smoking Status Never Smoker Estimated body mass index is 24.48 kg/m as calculated from the following: Height as of this encounter: 1.613 m (5' 3.5 ). Weight as of this encounter: 63.7 kg (140 lb 6.4 oz). General: well appearing, well nourished Chest: regular rate and rhythm Abdomen: - Rectus abdominis muscle: contracts normally bilaterally - Hernia: no - Diastasis: no Back: - Scars: no - Latissimus dorsi muscle: contracts normally bilaterally Extremities: warm and well perfused - Buttocks: deferred - Thighs: deferred Assessment and Plan A long, detailed conversation was had regarding the patient s options for breast reconstruction. Five main points, which are explained to all breast reconstruction patients, were discussed. 1. Breast reconstruction is an optional process. 2. Breast reconstruction is a multi-stage process which involves multiple surgeries spaced several months apart. The entire process can take over one year. 3. The major goal of breast reconstruction is to have the patient look normal in clothing. When naked, there will always be scars and asymmetries, some of which may not be completely addressed with surgery. 4. Asymmetries are often present during the reconstruction process. Several operations may be needed, including surgery to the non-cancerous breast, to achieve satisfactory results. 5. No matter the reconstructive method, there are ways that the reconstruction can fail and a secondary reconstructive plan would need to be created. A general discussion regarding all available methods of breast reconstruction were discussed. The types of reconstructions described included. 1. Two-stage and one-stage implant-based reconstruction. 2. Autologous only reconstructions, including free abdominal-tissue based reconstructions. 3. Combination procedures, particularly latissismus dorsi flaps combined with either expanders or implants. 4. Oncoplastic breast reconstruction. For each of the reconstruction methods mentioned above, the risks, benefits, alternatives, and complications were discussed in detail. Specific risks detailed included bleeding, infection, hematoma, seroma, scarring, pain, wound healing complications, need for reoperation (emergent, urgent, and elective), injury to structures that can result in loss of sensation, potential need for dressing changes, and asymmetry. With implant-based reconstruction, specific risks detailed included that implantsare not lifetime devices and will rupture in the long-term, capsular contracture, potential need for implant removal, breast implant associated anaplastic large cell lymphoma (risk approximately 1 in30,000), systemic symptoms (joint pain, fatigue, memory loss), need for follow-up evaluation including in some cases imaging (which may or may not be covered by insurance) even after breast reconstruction has been completed, rippling, and that implants contain chemicals and heavy metals. With autologous reconstruction, specific risks detailed included partial or complete flap loss, fat necrosis, donor site complications (such as bulge, hernia, umbilical necrosis). With oncoplastic reconstruction, specific risks discussed included nipple loss, and insensate nipple. In addition, I discussed howreconstructive surgery can potentially interfere with oncologic outcome (e.g., in cases of positivemargins on final pathology), and conversely how oncologic treatment can potentially interfere with reconstructive surgery outcome (e.g., in cases of unanticipated postmastectomy radiation therapy). Once all reconstruction options were presented, a focused discussion was had regarding the patient's suitability for each of these procedures. [facility] Miscellaneous Notes* Addendum Note - Bret Padilla PA-C - 03/04/2022 8:00 AM EDTAddended by: BRET PADILLA on: 03/04/2022 12:34 PM Modules accepted: Orders documented in this encounterC[facility]07-[facility]-2022 Note* Addendum Note - Bret Padilla PA-C - 03/04/2022 8:00 AM EDTAddended by: BRET PADILLA on: 03/04/2022 12:34 PM Modules accepted: Orders U [facility] Work Phone: [phone] 509-587907-01-2022 History of Present illness Narrative* Bailey Crump - 02/27/2022 9:40 AM EDT Second technologist present for imaging. No need for medical hot mill tin roller. documented in this encounterC[facility]06[facility] History of Present illness Narrative* Tejal Reyes - 02/24/2022 10:30 AM EDT Patient offered a medical hot mill tin roller for sensitive exam. Pt declined documented in this encounterCincinnati [facility]06-28-2022 History of Present illness Narrative* CARTER Gaona - 02/24/2022 9:00 AM EDT Images from the original note were not included. See Dr. Smallwood's note from the same day. * Stuart Smallwood MD - 02/24/2022 9:00 AM EDT INITIAL PATIENT EVALUATION NOTE / HISTORY AND PHYSICAL EXAMINATION NOTE FOR [facility]: DR. SMALLWOOD: HISTORY OF PRESENT ILLNESS The patient is a new patient to my [facility]. The patient is currently a 61-year-old white female. The patient had a body mass index/BMI of approximately 24.8 kg/m (5 foot, 3.5 inches tall, and weighed approximately 142 pounds), as of 02/24/2022. The patient lives in [place], [place]. 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 ################################################################################ ############################################ The patient is most recent outside prior breast imaging was performed at [facility] in [place], [place], including bilateral diagnostic digital mammogram and right breast ultrasound on 01/15/2022. On 02/21/2021, the patient underwent a 12 lead EKG through the [facility] in [place], [place].This showed normal sinus rhythm with a ventricular rate of 69 beats per minute. They stated: Impression: SINUS RHYTHM WITH SHORT TX. NONSPECIFIC T WAVE ABNORMALITY. ABNORMAL ECG. . On 04/02/2021, the patient underwent Cardiopulmonary Exercise Test (CPET) at the [facility], in [place], [place]. They stated: Summary: In summary, in the current exercise study, the patient achieved a normal work capacity (VO2 max = 23.6 ml/kg/min, 112% of VO2 max predicted); and a normal work rate (WR = 118W, 155% predicted). - The evidence for a cardiovascular pattern of limitation includes: none. - The evidence for a respiratory pattern of limitation includes: none. The overall pattern is suggestive of normal aerobic fitness. NOTE: Exercise tech staff added the following: Familiar symptoms of dyspnea were recreated during exercise. Shireen Escobedo MD, April 02, 2021. Electronically Signed On 04-04-2021 14:18:11 EDT by Shireen Escobedo. . On 01/20/2022, the patient underwent a right breast ultrasound-guided Elite 13 gauge vacuum assisted biopsy and clip placement procedure of a 4.5 x 1.8 x 1.5 cm right breast ultrasound lesion in the 11:00 position of the right breast [3.2 cm FRN] at [facility] in [place], [place]. The final pathology from 01/20/2022 showed low-grade invasive carcinoma with mixed ductal and lobular features, measuring 1.9 cm in greatest dimension, which was found to be >90% ER positive, 80-90% TX positive, and HER2/lizzette negative. On 02/18/2022, the patient's outside breast imaging was reviewed by Dr. Biju Blum of [facility] breast Radiology. They stated: EXAM: BREAST IMAGING SECOND OPINION READING, 02/18/2022 09:07 AM. CLINICAL INDICATIONS: The patient presents to the surgical clinic of Dr. Smallwood for evaluation. The patient originally presented to an outside institution in December 2021 for further evaluation of a palpable right breast lump. The patient underwent a bilateral diagnostic mammogram and right breast ultrasound which identified a suspicious right breast mass for which ultrasound-guided biopsy was suggested. The patient underwent an ultrasound-guided biopsy the right breast with pathology returning invasive ca rcinoma with mixed ductal and lobular features. Requested evaluation of outside breast imaging. COMPARISON: Bilateral diagnostic mammogram with tomosynthesis January 15, 2022. Right breast ultrasound 2021. Postbiopsy mammogram of the right breast January 20, 2022. Remote mammograms from August was reviewed for comparative purposes. MAMMOGRAM FINDINGS: The breasts have scattered areas offibroglandular density. With regard to bilateral diagnostic mammogram of January 15, 2022 in the lower inner right breast there is an irregularly-shaped isodense mass with spiculated margins and associated architectural distortion. There is some retraction of the skin in the lower pole the right breast. Mammographically the central core of the mass measures approximately 4.5 x 2.9 x 3.0 cm. No additional definitive dominant mass, distortion, or suspicious Patricio calcification either breast. With regard to the postbiopsy mammogram of January 20, 2022 there is a appropriately positioned biopsy clip atthe inferolateral aspect of the mass. ULTRASOUND FINDINGS: With regard to the right breast ultrasound of January 15, 2022 in the 11:00 position of the right breast approximately 3.2 cm from the nipple there is an irregular shaped hypoechoic mass with spiculated margins and associated vascular flow. [facility] the mass at 4.5 x 1.8 x 1.5 cm. The latter 2 of the 3 measurements appear to underestimate the size of the mass. IMPRESSION: Biopsy-proven carcinoma in the 5:00 right breast as described above. . . On 02/24/2022, I personally reviewed the patient's outside breast imaging with Dr. Wei Robertson of [facility] breast radiology. We discussed repeating right breast ultrasound to better size the overallsonographic abnormality within the right breast representing her right breast cancer process. We discussed obtaining right axillary ultrasound to sonographically evaluate her right axillary lymph nodes. We discussed the possibility of consideration of subsequently ordering bilateral breast MRI on the patient. On 02/24/2022, the patient presented to my [facility] for evaluation. On 02/24/2022, patient underwent a 12 lead EKG at [facility]. This showed normal sinus rhythm with a ventricular rate of 75 beats per minute. This showed nonspecific T-wave abnormalities. This showed prolonged QT interval. This is classified as an abnormal EKG tracing by the preliminary computerized reading. The patient now presents to my [facility] breast surgical oncology clinic for further evaluation. REVIEW OF SYSTEMS GENERAL/CONSTITUTIONAL: Negative for fever, chills, fatigue, recent weight gain or loss. HEENT: No visual disturbances, diplopia. No hearing loss, tinnitus, sore throat, nosebleeds, and rhinorrhea. No dysphagia or odynophagia. CARDIOVASCULAR: Negative for palpitations, chest pain, dyspnea on exertion, orthopnea or paroxysmalnocturnal dyspnea. RESPIRATORY: Negative for chronic or productive cough, hemoptysis, or asthma. GASTROINTESTINAL: Negative for abdominal pain, nausea, vomiting, diarrhea, constipation or changes in bowel habits. GENITOURINARY: Negative for dysuria or hematuria. No frequency, urgency, or hesitancy. MUSCULOSKELETAL: Negative for arthralgias, myalgias, or back pain. NEUROLOGICAL: Negative for dizziness, syncope, focal weakness or headaches. PSYCHIATRIC: Negative for depression, anxiety or mood disorders. LYMPH/HEME: No history of hematologic malignancies or bleeding disorders. No lymphadenopathy. SKIN: Negative for acute skin lesions. PAST MEDICAL HISTORY Past Medical History: Diagnosis Date Hypothyroidism Malignant neoplasm of lower-inner quadrant of right breast of female, estrogen receptor positive 01/20/2022 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, ER+/TX+/HER2- PAST SURGICAL HISTORY Past Surgical History: Procedure Laterality Date CORE BIOPSY OF THE BREAST Right 01/20/2022 invasive carcinoma HYSTERECTOMY 2012 BLADDER SUSPENSION 2006 ACL 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 Left 2004 MEDICATIONS Current Outpatient Medications Medication Sig Breztri Aerosphere 160-9-4.8 MCG/ACT Aerosol INHALE 2 PUFFS BY MOUTH TWICE DAILY esomeprazole [address] capsule Take 20 mg by mouth every morning before breakfast. estradiol 0.5 MG tablet furOSEmide 20 MG tablet Take 20 mg by mouth daily. meloxicam 15 MG tablet Synthroid 50 MCG tablet ALLERGIES Allergies Allergen Reactions Sumatriptan Other reaction(s): Mental Status Change, Other (See Comments) IMMUNIZATIONS There is no immunization history on file for this patient. 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 Patient has had a hysterectomy.. Last PAP: unsure Para: 3 Age at of first child: 16 Age of menarche: 12 Age of menopause: 2011 Patient admits to hormonal therapy at this time. BREAST (GENERAL): Patient admits to self-breast exams and does them monthly. Date of patient's first mammogram: 08/2018 Date of most recent mammogram: 01/20/22 Bra/Cup Size: 36C BREAST(HISTORICAL BIOPSY/THERAPY/TREATMENT) Patient admits to previous breast biopsy(s). Patient admits to being told they personally have breast cancer or a breast malignancy. Patient denies chemotherapy, hormone therapy or radiation therapy during the last month. FAMILY HISTORY Her family history includes Colorectal Cancer (age of onset: 50) in her sister; Prostate Cancer (age of onset: 60) in her brother; Prostate Cancer (age of onset: 66) in her brother; Thyroid Cancer inher maternal grandmother. SOCIAL HISTORY She reports that she has never smoked. She has never used smokeless tobacco. She reports current alcohol use of about 1.0 standard drink of alcohol per week. She reports that she does not use drugs. PHYSICAL EXAMINATION Our Nursing Staff was present for the evaluation (Clarissa Hamm and Marlene Moe). The patient came to the clinic exam room with her and her sister. VITAL SIGNS: BP 140/83 Pulse 80 Temp 97.9 F (36.6 C) (Oral) Resp 14 Ht 1.613 m (5' 3.5 ) Wt 64.6 kg (142 lb 6.4 oz) BMI 24.83 kg/m Smoking Status Never Smoker ,Body mass index is 24.83 kg/m . GENERAL: Well nourished, well developed, White female. No acute distress. HEENT: Head: Normocephalic and atraumatic. Eyes: Pupils are equal, round, and reactive to light andaccomodation. Extraocular movements are intact. Sclerae are anicteric. Neck: Supple, non-tender. Notracheal deviation. No thyromegally. HEART: Regular rate and rhythm. Normal S1, S2. No murmurs, rubs or gallops. LUNG/CHEST: Lungs are clear to auscultation bilaterally. No wheezes, rhonchi or rales noted. BREASTS: On 02/24/2022, we placed 2 digital photographs of the patient's right breast/chest region into her [facility] electronic medical records to illustrate the geographic location visible and palpable changes within her right breast, representing her right breast cancer process and skin entrance site from her r ecent right breast ultrasound-guided biopsy done at the outside facility on 01/20/2022. The patient has bilateral medium-sized breast profiles for her body frame. The patient's breasts are somewhat pendulous and ptotic, especially when she is sitting up. On 02/24/2022, the patient has the following clinical examination of her right breast. The patient has visible and palpable changes of her right breast. The patient has a 6 x 5 x 3 cm palpable area of fullness along the 3:00/4:00/5:00/6:00 axis of zone 1/2 of her right breast profile, which is free off the underlying right chest wall region, and extensive proximally 7 cm from the right nipple profile in the 4:00/5:00 axis with the patient is lying down with her right arm up above her head. The patient is a well-healed skin entrance site within the skin of the 4:00 axis of the right breast skin, extending 8 cm from the right upper pole file with the patient was lying down with her right arm up above her head from her recent right breast ultrasound-guided biopsy at outside facility from 01/20/2022. The patient has no discrete, concerning, palpable left breast masses within the left breast profile. The patient has no suspicious nipple abnormalities bilaterally. The patient has no suspicious skin changes of her breast skin bilaterally. LYMPH NODES: The patient has no overtly obvious discrete palpable cervical, supraclavicular, or axillary adenopathy bilaterally. ABDOMEN: Abdomen with normoactive bowel sounds in all four quadrants. Soft, non- tender, non-distended. No organomegaly. EXTREMITIES: Normal range of motion in all four extremities, with normal strength equally and symmetrically. No cyanosis or clubbing or peripheral edema. VASCULAR: 2+ distal pulses in upper and lower extremities. 2+ carotid pulses without carotid bruits. NEUROLOGICAL: Conscious, alert and oriented. Grossly intact. SKIN: Skin is warm and dry. No skin lesions. The patient has relatively dark chronic tanned skin with sun damage changes of her skin overall her visible parts of her trunk and extremities. ASSESSMENT AND PLAN The patient has a history, as is described above. The patient has a clinical exam, as is described above. 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 ################################################################################ ############################################ On 02/24/2022, I had the following discussion with the patient and her and her sister in the presence of our nurse practitioner, Marlene Olivas: We discussed that I felt that the patient was not going to be an appropriate candidate for attempted right breast conserving surgery, and instead would need a right mastectomy approach. We discussed surgical evaluation of the right axillary lymph nodes with right axillary sentinel lymph node mapping and biopsy procedure, and possible radioactive lymph node dissection procedure. We discussed the patient could potentially be a candidate for reconstructive surgery associated with right mastectomy approach. We discussed the importance of having the patient be seen by 1 of the [facility] Plastic Surgeons. We discussed the importance of having the patient be seen by 1 of the [facility] breast medical oncologist. We discussed the importance of having the patient be seen by 1 of the [facility] breast radiation oncologist. We discussed obtaining repeat right breast diagnostic digital mammogram to assess the overall size of her biopsy-proven right breast cancer process. We discussed the importance of right axillary ultrasound to sonographically assess her right axillary lymph nodes. We discussed ordering bilateral breast MRI on the patient for better sizing the patient's right breast cancer process, as well as clearing her contralateral left breast. We discussed ordering a nuclear medicine cardiac stress test on the patient due to her abnormal EKGfindings. We discussed having the patient be evaluated by the [facility] clinical cancer genetics service to discusscomprehensive genetic testing to rule out any form of hereditary breast cancer syndrome. I have discussed all of these issues with the patient. I have answered all of her questions. The patient appears to understand what has been discussed, and she reports that she will follow-through accordingly, as is outlined above. We have given the patient contact information for our nurse practitioner, Effie Moe, andhave instructed the patient to remain in contact with our nurse practitioner, Effie Moe,through [employer] [facility] [facility], for any future upcoming questions or concerns that they have regarding their management or follow-up in our [facility] breast Surgical Oncology Clinic. ################################################################################ ############################################ In the process of seeing this patient, multiple medical records, imaging studies, and other ancillary studies, and their reports, were carefully reviewed from all available internal [facility] sites, as well as from all available external sites, and were interpreted within the context of the patient's working clinical diagnosis. A comprehensive history and physical was performed, as is detailed above. The patient's known diagnosis of or concern for breast cancer has led to an extensive discussion withthe patient of multiple options for treatment and care, as well as the risks, benefits, and alternatives to each of those options for treatment and care. We discussed that breast cancer is a complex health concern and can sometimes be a life-altering health issue or even life- threatening health issue. The in-depth discussion of surgical treatment and care for the patient's particular diagnosis included specific risks, potential morbidities, and the impact of that surgical treatment on their quality of life. The specific discussion with the patient and recommendations that were made were specifically reflective of the patient s listed history and comorbidities. ################################################################################ ############################################ This note was dictated using Soric[employer]ed voice recognition software. Attempts at proofreading were made, but errors may occasionally still occur. [facility] and other [facility] in detail, and have updated medication and allergy information in the computerized patient record. REFERRING/PRIMARY PROVIDER(S) -Referring Provider for today's consult: Self, Self -Primary Care Provider: Tucker Haywood ADDENDUM #1: On 02/24/2022, the patient underwent right breast ultrasound and right axillary ultrasound at [facility]. This was read by Dr. Wei Robertson of [facility] breast radiology. They stated: EXAM: US BREAST LIMITED UNILATERAL RIGHT, US AXILLA FOR MAMMOGRAPHY RIGHT, 02/24/2022 10:44 AM (accession [id number]), 02/24/2022 10:45 AM (accession [id number]). CLINICAL INDICATIONS: New right breast malignancy 5 o'clock, request for axillary evaluation as well. COMPARISON: January 15, 2022, January 20, 2022. FINDINGS: The biopsy-proven malignancy and associated clip is again demonstrated at the 5:00 zone 2 position. This consists of a markedly irregular ill-defined hypoechoic mass which on today's exam measures approximately 4.7 x 2.7x 4.5 cm. Clip is noted within the mass. Evaluation of the right axilla demonstrates 2 lymph nodes with maintained normal morphology. No suspicious axillary lymph nodes are identified. IMPRESSION: 1. Biopsy-proven malignancy with measurements as described above. 2. Normal appearance of the right axilla. BI-RADS: 6: Known biopsy proven malignancy. Recommendation: Surgical excision when clinically appropriate. Rec ommendation Laterality: Right. . . [facility] Diagnosis Malignant neoplasm of lower-inner quadrant of right breast of female, estrogen receptor positive [facility] Diagnosis Malignant neoplasm of lower-inner quadrant of right breast of female, estrogen receptor positive- Primary Pre-op testing Preoperative examination, unspecified Malignant neoplasm of lower-inner quadrant of right breast of female, estrogen receptor positive Malignant neoplasm of lower-inner quadrant of right breast of female, estrogen receptor positive Pre-op testing Preoperative examination, unspecified [facility] Diagnosis Pre-op testing Preoperative examination, unspecified documented in this encounter [facility]* Diagnosis Malignant neoplasm of lower-inner quadrant of right breast of female, estrogen receptor positive [facility] Diagnosis Malignant neoplasm of lower-inner quadrant of right breast of female, estrogen receptor positive documented in this encounter [facility] note* Diagnosis Pre-op testing Preoperative examination, unspecified [facility] Diagnosis Malignant neoplasm of lower-inner quadrant of right breast of female, estrogen receptor positive [facility] Diagnosis Malignant neoplasm of lower-inner quadrant of right breast of female, estrogen receptor positive Pre-op testing Preoperative examination, unspecified Malignant neoplasm of lower-inner quadrant of right breast of female, estrogen receptor positive documented in this encounter [facility] note* Diagnosis Malignant neoplasm of lower-inner quadrant of right breast of female, estrogen receptor positive- Primary Malignant neoplasm of lower-inner quadrant of right breast of female, estrogen receptor positive [facility] Diagnosis Malignant neoplasm of lower-inner quadrant of right breast of female, estrogen receptor positive Malignant neoplasm of lower-inner quadrant of right breast of female, estrogen receptor positive [facility] Diagnosis Malignant neoplasm of lower-inner quadrant of right breast of female, estrogen receptor positive documented in this encounter [facility] note* Diagnosis Malignant neoplasm of lower-inner quadrant of right breast of female, estrogen receptor positive [facility] Diagnosis Malignant neoplasm of lower-inner quadrant of right breast of female, estrogen receptor positive- Primary Personal history of malignant neoplasm of breast [facility] Diagnosis Acquired absence of breast, unspecified laterality- Primary [facility] Diagnosis Malignant neoplasm of lower-inner quadrant of right breast of female, estrogen receptor positive- Primary documented in this encounter [facility] note* Diagnosis Acquired absence of breast, unspecified laterality- Primary [facility] Diagnosis Acquired absence of right breast and nipple- Primary Acquired absence of breast and nipple [facility] Diagnosis Acquired absence of right breast and nipple- Primary Acquired absence of breast and nipple [facility] Diagnosis Malignant neoplasm of lower-inner quadrant of right breast of female, estrogen receptor positive- Primary 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 documented [facility] Diagnosis Acquired absence of right breast and nipple- Primary 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 documented [facility] Diagnosis Malignant neoplasm of lower-inner quadrant of right breast of female, estrogen receptor positive- Primary [facility] Diagnosis Acquired absence of right breast and nipple- Primary Acquired absence of breast and nipple [facility] Diagnosis Malignant neoplasm of lower-inner quadrant of right breast of female, estrogen receptor positive [facility] Diagnosis Malignant neoplasm of lower-inner quadrant of right breast of female, estrogen receptor positive- Primary [facility] Diagnosis Malignant neoplasm of lower-inner quadrant of right breast of female, estrogen receptor positive- Primary Hot flashes due to menopause [facility] Diagnosis Malignant neoplasm of lower-inner quadrant of right breast of female, estrogen receptor positive- Primary [facility] Diagnosis Malignant neoplasm of lower-inner quadrant of right breast of female, estrogen receptor positive- Primary [facility] Diagnosis Malignant neoplasm of lower-inner quadrant of right breast of female, estrogen receptor positive- Primary [facility] Diagnosis Malignant neoplasm of lower-inner quadrant of right breast of female, estrogen receptor positive- Primary [facility] Diagnosis History of breast cancer- Primary Personal history of malignant neoplasm of breast [facility] Diagnosis Acquired absence of right breast and nipple- Primary Acquired absence of breast and nipple [facility] Diagnosis Personal history of malignant neoplasm of breast [facility] this [facility] Diagnosis Acquired absence of right breast and nipple- Primary Acquired absence of breast and nipple [facility] GraphOn Other Evaluation note* Diagnosis Malignant neoplasm of lower-inner quadrant of right breast of female, estrogen receptor positive- Primary 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 documented in this [facility] Diagnosis Acquired absence of right breast and nipple- Primary 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 documented in this [facility] assessment information [facility] Work Phone: Evaluation note* Diagnosis Acquired absence of right breast and nipple- Primary Acquired absence of breast and nipple documented in this [facility] Diagnosis Personal history of malignant neoplasm of breast- Primary documented in this [facility] Diagnosis Malignant neoplasm of lower-inner quadrant of right breast of female, estrogen receptor positive- Primary Hot flashes related to aromatase inhibitor therapy [place] Encounter for monitoring aromatase inhibitor therapy Encounter for therapeutic drug monitoring documented in this [facility] Diagnosis Acute medial meniscus tear of left knee, initial encounter- Primary Primary osteoarthritis of left knee Primary localized osteoarthrosis, lower leg [facility] Diagnosis Primary osteoarthritis of left knee- Primary Primary localized osteoarthrosis, lower leg documented in this encounter [facility] general Narrative - Reported* Type Description Date Medical History asthma Medical History Esophageal reflux Medical History Hypothyroidism Medical History Breast cancer, right Medical History COVID Medical History Recurrent cold sores Medical History Fatigue, unspecified type Medical History Lower extremity pain, left Medical History Hypothyroidism Medical History Breast mass, right Medical History Hypoactive sexual desire disorde r Medical History Decreased libido without sexual dysfunction Medical History Left knee pain Surgical History carpal tunnel release Surgical History ulnar nerve surgery Surgical History MCL repair Surgical History heel surgery Surgical History hysterectomy Surgical History bladder suspension, unspecified Surgical History bladder sling removal Hospitalization History see above Hospitalization History pneumonia Hospitalization History child [employer] Other Reason for referral (narrative)* Consultation (Routine) - New Request Specialty Diagnoses / Procedures Referred By Alberto alonzo Referred To Contact Psychology Diagnoses Malignant neoplasm of lower-inner quadrant of right breast of female, estrogen receptor positive Mel Giron MD [address] [place] [address] Referral ID Status Reason Start Date Expiration Date V isits Requested Visits Authorized [id number] New Request 05/13/2022 06/07/2023 1 1 * Consultation (Routine) - New Request Specialty Diagnoses / Procedures Referred By Alberto t Referred To Contact Hematology & Oncology Diagnoses Malignant neoplasm of lower-inner quadrant of right breast of female, estrogen receptor positive Mel Giron MD [address] [place] [address] Referral ID Status Reason Start Date Expiration Date V isits Requested Visits Authorized [id number] New Request 05/13/2022 06/07/2023 1 1 * Radiology (Routine) - New Request Specialty Diagnoses / Procedures Referred By Stephenac t Referred To Contact Diagnoses Malignant neoplasm of lower-inner quadrant of right breast of female, estrogen receptor positive Procedures BONE DENSITY AXIAL (HIP, PELVIS, SPINE) Mel Giron MD [address] [place] [address] Referral ID Status Reason Start Date Expiration Date V isits Requested Visits Authorized [id number] New Request 05/13/2022 06/07/2023 1 1 [facility] Diagnostic Procedure Only (Routine) - Pending Review Specialty Diagnoses / Procedures Referred By Alberto alonzo Referred To Contact XR IMAGING Diagnoses Primary osteoarthritis of left knee Procedures XR LEG FRONTAL HIP TO ANKLE MECHANICAL AXIS XR LEG FRONTAL HIP TO ANKLE MECHANICAL AXIS BONE LENGTH STUDIES Bret Oneal PA-C [address] [place] [address] Xr Imaging [place] [address] Referral ID Status Reason Start Date Expiration Date Visits Requested Visits Authorized [id number] Pending Review Auto-Generat ed Referral 01/21/2024 02/19/2025 1 1 * Diagnostic Procedure Only (Routine) - Pending Review Specialty Diagnoses / Procedures Referred By Alberto t Referred To Contact XR IMAGING Diagnoses Primary osteoarthritis of left knee Procedures XR KNEE GENERAL 4V AP BOTH/PA BOTH/LAT/MERC LEFT XR KNEE GENERAL 4V AP BOTH/PA BOTH/LAT/MERC LEFT RADIOLOGIC EXAM KNEE COMPLETE 4/MORE VIEWS Bret Oneal PA-C [address] [place] [address] X[facility] [place] [address] Referral ID Status Reason Start Date Expiration Date Visits Requested Visits Authorized [id number] Pending Review Auto-Generat ed Referral 01/21/2024 02/19/2025 1 1 [facility] for visit Narrative* Auth/Cert Specialty Diagnoses / Procedures Referred By Alberto alonzo Referred To Contact Diagnoses Malignant neoplasm of lower-inner quadrant of right breast of female, estrogen receptor positive Malignant neoplasm of lower-inner quadrant of right breast of female, estrogen receptor positive [C50.311, Z17.0] Procedures TX MASTECTOMY, SIMPLE, COMPLETE TX BX/REMV,LYMPH NODE,DEEP AXILL TX INJ RADIOACTIVE TRACER FOR ID OF SENTINEL NODE TX REMOVE ARMPITS LYMPH NODES COMPLT TX 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 PLACEMENT BREAST 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 MASTECTOMY COMPLETE BX LYMPH NODE AXILLARY DEEP INJECTION RADIOACTIVE TRACER FOR SENTINEL NODE IDENTIFICATION LYMPHADENECTOMY AXILLARY DEEP 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 Stuart Smallwood MD [address] [facility] [address]rd Floor, [address] [place] [address] [facility] [address] [place] [address] Referral ID Status Reason Start Date Expiration Date Visits Re quested Visits Authorized [id number] 1 1 [facility] Summary Purpose Family History No Family History Records Found Relationship Condition Age at Onset Recorded Date/T sandra brother Diabetes mellitus Unknown sister Diabetes mellitus Unknown father Diabetes mellitus Unknown Not Specified Diabetes mellitus Unknown Relationship Condition Age at Onset Recorded Date/T sandra brother Diabetes mellitus Unknown sister Diabetes mellitus Unknown father Diabetes mellitus Unknown Not Specified Diabetes mellitus Unknown Hypertension Unknown Heart disease Unknown Not Specified Hypertension Unknown sister Family history of colon cancer Unknown Malignant neoplasm Unknown Advance Directives No Advanced Directives Records FoundLatest Code Status on File Code Status Date Activated Date Inactivated Comments Full Code 04/10/2022 5:08 AM 04/10/2022 2:01 PM Latest Code Status on File Code Status Date Activated Date Inactivated Comments Full Code 04/10/2022 5:08 AM 04/10/2022 2:01 PM Latest Code Status on File Code Status Date Activated Date Inactivated Comments Full Code 04/10/2022 5:08 AM 04/10/2022 2:01 PM Latest Code Status on File Code Status Date Activated Date Inactivated Comments Full Code 04/10/2022 5:08 AM 04/10/2022 2:01 PM Advance Directive Response Recorded Date/ Time Advance Directives No June 10:07am Reason for Referral Specialty Diagnoses / Procedures Referred By Contac t Referred To Contact Diagnoses Pre-op testing Procedures MRI BREAST BILATERAL WITH AND WITHOUT CONTRAST CHG MRI BREAST WITHOUT&WITH CONTRAST W/CAD BILATERAL Marlene Olivas APRN-PHARMACEUTICAL WORKER [address] [place] [address] Referral ID Status Reason Start Date Expiration Date V isits Requested Visits Authorized [id number] Pending Review 02/24/2022 03/21/2023 1 1 Specialty Diagnoses / Procedures Referred By Contac t Referred To Contact Diagnoses Malignant neoplasm of lower-inner quadrant of right breast of female, estrogen receptor positive Pre-op testing Procedures NUC MYOCARD PERF STRESS MIBI PHARM TX CHG MYOCARDIAL SPECT MULTIPLE STUDIES CHG MYOCARDIAL SPECT MULTIPLE STUDIES-T TX CARDIAC STRESS TST,INTERP/REPT ONLY TX CV STRS TST XERS&/OR RX CONT ECG W/O I&[place] [address] Referral ID Status Reason Start Date Expiration Date Visits Requested Visits Authorized [id number] Authorized - Polina 02/24/2022 03/21/2023 1 1 Specialty Diagnoses / Procedures Referred By Contac t Referred To Contact Radiation Oncology Diagnoses Malignant neoplasm of lower-inner quadrant of right breast of female, estrogen receptor positive Marlene Olivas APRN-CNP [address] [place] [address] Referral ID Status Reason Start Date Expiration Date V isits Requested Visits Authorized [id number] New Request 02/24/2022 03/21/2023 1 1 Specialty Diagnoses / Procedures Referred By Contac t Referred To Contact Diagnoses Pre-op testing Procedures ECG [place] [address] Referral ID Status Reason Start Date Expiration Date V isits Requested Visits Authorized [id number] New Request 02/24/2022 03/21/2023 1 1 Specialty Diagnoses / Procedures Referred By Contac t Referred To Contact Oncology Diagnoses Malignant neoplasm of lower-inner quadrant of right breast of female, estrogen receptor positive Marlene Olivas PAPER WOOD CUTTER-PHARMACEUTICAL WORKER [address] [address] Referral ID Status Reason Start Date Expiration Date V isits Requested Visits Authorized [id number] New Request 02/24/2022 03/21/2023 1 1 Specialty Diagnoses / Procedures Referred By Contac t Referred To Contact Genetics Diagnoses Malignant neoplasm of lower-inner quadrant of right breast of female, estrogen receptor positive Marlene Olivas PAPER WOOD CUTTER-PHARMACEUTICAL WORKER [address] [place] [address] Referral ID Status Reason Start Date Expiration Date V isits Requested Visits Authorized [id number] New Request 02/24/2022 03/21/2023 1 1 Specialty Diagnoses / Procedures Referred By Contac t Referred To Contact Plastic Surgery Diagnoses Malignant neoplasm of lower-inner quadrant of right breast of female, estrogen receptor positive Marlene Olivas PAPER WOOD CUTTER-PHARMACEUTICAL WORKER [address] [place] [address] Tyrell Daiyl MD [address] [facility] [address] [place] [address] Referral ID Status Reason Start Date Expiration Date V isits Requested Visits Authorized [id number] New Request 02/24/2022 03/21/2023 1 1 Specialty Diagnoses / Procedures Referred By Contac t Referred To Contact Diagnoses Malignant neoplasm of lower-inner quadrant of right breast of female, estrogen receptor positive Procedures US AXILLA FOR MAMMOGRAPHY RIGHT Marlene Olivas PAPER WOOD CUTTER-PHARMACEUTICAL WORKER [address] [address] Referral ID Status Reason Start Date Expiration Date V isits Requested Visits Authorized [id number] New Request 02/24/2022 03/21/2023 1 1 Specialty Diagnoses / Procedures Referred By Contac t Referred To Contact Diagnoses Malignant neoplasm of lower-inner quadrant of right breast of female, estrogen receptor positive Procedures US BREAST LIMITED UNILATERAL RIGHT Seamus Olivasdonavan Corona, PAPER WOOD CUTTER-PHARMACEUTICAL WORKER [address] [facility] [address] [place] [address] Referral ID Status Reason Start Date Expiration Date V isits Requested Visits Authorized [id number] New Request 02/24/2022 03/21/2023 1 1 Referral ID Status Reason Start Date Expiration Date Visits Re quested Visits Authorized [id number] Closed 02/24/2022 03/21/2023 1 1 Referral ID Status Reason Start Date Expiration Date Visits Re quested Visits Authorized [id number] Closed 02/24/2022 03/21/2023 1 1 Specialty Diagnoses / Procedures Referred By Contac t Referred To Contact Diagnoses Malignant neoplasm of lower-inner quadrant of right breast of female, estrogen receptor positive Procedures QUESTIONNAIRE SERIES Mel Giron MD [address] [place] [address] Referral ID Status Reason Start Date Expiration Date V isits Requested Visits Authorized [id number] New Request 04/05/2022 04/30/2023 1 1 Specialty Diagnoses / Procedures Referred By Contac t Referred To Contact Diagnoses Malignant neoplasm of lower-inner quadrant of right breast of female, estrogen receptor positive Procedures NUC BREAST/LYMPH GLAND INJECTION TX INJ RADIOACTIVE TRACER FOR ID OF SENTINEL NODE Effie Méndez, PAPER WOOD CUTTER-PHARMACEUTICAL WORKER [address] [place] [address] Referral ID Status Reason Start Date Expiration Date Visits Re quested Visits Authorized [id number] Closed 03/04/2022 03/29/2023 1 1 Specialty Diagnoses / Procedures Referred By Contac t Referred To Contact Procedures NO MECHANICAL DVT PROPHYLAXIS Ryann Perales, PAPER WOOD CUTTER-PHARMACEUTICAL WORKER [address] [place] [address] Referral ID Status Reason Start Date Expiration Date V isits Requested Visits Authorized [id number] New Request 04/10/2022 05/05/2023 1 1 Specialty Diagnoses / Procedures Referred By Contac t Referred To Contact Procedures LOW RISK - NO PHARMACOLOGICAL DVT PROPHYLAXIS Ryann Perales, PAPER WOOD CUTTER-PHARMACEUTICAL WORKER [address] [place] [address] Referral ID Status Reason Start Date Expiration Date V isits Requested Visits Authorized [id number] New Request 04/10/2022 05/05/2023 1 1 Specialty Diagnoses / Procedures Referred By Contac t Referred To Contact Procedures DVT/VTE RISK ASSESSMENT Ryann Perales PAPER WOOD CUTTER-PHARMACEUTICAL WORKER [address] [place] [address] Referral ID Status Reason Start Date Expiration Date V isits Requested Visits Authorized [id number] New Request 04/10/2022 05/05/2023 1 1 Referral ID Status Reason Start Date Expiration Date V isits Requested Visits Authorized [id number] New Request 04/10/2022 05/05/2023 1 1 Specialty Diagnoses / Procedures Referred By Contac t Referred To Contact Diagnoses Personal history of malignant neoplasm of breast Procedures MAMMO DIAGNOSTIC WITH KATHY LEFT Effie Méndez APRN-PHARMACEUTICAL WORKER [address] [place] [phone] Referral ID Status Reason Start Date Expiration Date V isits Requested Visits Authorized [id number] New Request 04/15/2022 05/10/2023 1 1 Specialty Diagnoses / Procedures Referred By Contac t Referred To Contact Diagnoses Malignant neoplasm of lower-inner quadrant of right breast of female, estrogen receptor positive Procedures MAMMO DIAGNOSTIC WITH KATHY LEFT Effie Méndez PAPER WOOD CUTTER-PHARMACEUTICAL WORKER [address] [place] [phone] Referral ID Status Reason Start Date Expiration Date V isits Requested Visits Authorized [id number] New Request 04/22/2022 05/17/2023 1 1 Specialty Diagnoses / Procedures Referred By Contac t Referred To Contact Diagnoses Acquired absence of right breast and nipple Tyrell Daily MD [address] [facility] [address] [place] [address] Referral ID Status Reason Start Date Expiration Date V isits Requested Visits Authorized [id number] New Request 06/17/2022 07/12/2023 1 1 Specialty Diagnoses / Procedures Referred By Contac t Referred To Contact Diagnoses Malignant neoplasm of lower-inner quadrant of right breast of female, estrogen receptor positive Procedures BONE DENSITY AXIAL (HIP, PELVIS, SPINE) Mel Giron MD [address] [place] [address] Referral ID Status Reason Start Date Expiration Date V isits Requested Visits Authorized [id number] New Request 05/13/2022 06/07/2023 1 1 Specialty Diagnoses / Procedures Referred By Contac t Referred To Contact Diagnoses Malignant neoplasm of lower-inner quadrant of right breast of female, estrogen receptor positive Procedures RAD ONC SIMULATION Deepti Gomez MD, PhD [address] [place] [address] Referral ID Status Reason Start Date Expiration Date Visits Re quested Visits Authorized [id number] Closed 07/31/2022 08/25/2023 1 1 Specialty Diagnoses / Procedures Referred By Contac t Referred To Contact Diagnoses Malignant neoplasm of lower-inner quadrant of right breast of female, estrogen receptor positive Procedures MAMMO DIAGNOSTIC LEFT Effie Méndez, PAPER WOOD CUTTER-PHARMACEUTICAL WORKER [address] [place] [address] Referral ID Status Reason Start Date Expiration Date V isits Requested Visits Authorized [id number] New Request 01/27/2023 02/21/2024 1 1 Reason 03/31/23 @ 9:15am wi th Sola Samayoa Asthma exacerbation no relief with prednisone - chest xray clear Diagnosis 1 Moderate persistent asthma with exacerbation (J45.41) Referral Organization [facility] Referring Provider First Name Tucker Referring Provider Last Name Yobany Referring Provider Specialty Family [facility] cine Referred Organization [facility] Referred Provider Sola Samayoa Referred Address [address] [place] [address],[place], [place],[address] Referred Provider Specialty Nurse Bre calderón Referral Priority Routine Referral Appointment Date 2023-03-31 General Notes Please include patie nts chest xray Nathalie Valles 02/24/2023 04:09:26 PM >xr attached, received today, sent Tomeka Gregory 02/25/2023 02:15:01 PM >Patient has been scheduled Specialty Diagnoses / Procedures Referred By Alberto t Referred To Contact Diagnoses Malignant neoplasm of lower-inner quadrant of right breast of female, estrogen receptor positive Mel Giron MD [address] [place] [address] Referral ID Status Reason Start Date Expiration Date V isits Requested Visits Authorized [id number] Schedule Outgoing - Transfer of Care 09/08/2023 10/02/2024 1 1 Chief Complaint and Reason for Visit Chief Complaint r05.8 j45.909 j84.9 Chief Complaint r91.8 Additional Source Comments INFORMATION SOURCE (unrecogn ized section and content) DATE CREATED AUTHOR 01/30/[address] [facility] DATE CREATED AUTHOR AUTHOR'S ORGANIZ ATION 01/08/2024 [facility] DATE CREATED AUTHOR AUTHOR'S ORGANIZ ATION 01/23/2024 [facility] DATE CREATED AUTHOR AUTHOR'S ORGANIZ ATION 02/02/2024 [facility] EP[facility] DATE CREATED AUTHOR AUTHOR'S ORGANIZ ATION 02/11/2024 [facility] Reason for Visit (unrecogniz ed section and content) Specialty Diagnoses / Procedures Referred By Alberto alonzo Referred To Contact Diagnoses Malignant neoplasm of lower-inner quadrant of right breast of female, estrogen receptor positive Procedures BREAST IMAGING SECOND OPINION READING Effie Méndez, LEI-EDEN [address] [place] [address] Referral ID Status Reason Start Date Expiration Date V isits Requested Visits Authorized [id number] New Request 02/18/2022 03/15/2023 1 1 Reason Comments New Patient New Right Breast IDC ER/TX+, HER- Specialty Diagnoses / Procedures Referred By Alberto alonzo Referred To Contact Surgical Oncology Diagnoses New Patient right breast IDC-imaging and records through [facility]. Patient requested Dr. Smallwood and is scheduled in his first available. Patient declined coordinating appointments. NPP mailed Procedures NEW BREAST SURG ONC Self, Self Selin, Stuart Pandya MD [address] [facility] [address]rd Floor, [address] [place] [address] Referral ID Status Reason Start Date Expiration Date V isits Requested Visits Authorized [id number] New Request 02/24/2022 03/21/2023 1 1 Specialty Diagnoses / Procedures Referred By Contac t Referred To Contact Diagnoses Malignant neoplasm of lower-inner quadrant of right breast of female, estrogen receptor positive Procedures US BREAST LIMITED UNILATERAL RIGHT Marlene Olivas APRN-CNP [address] [place] [address] Referral ID Status Reason Start Date Expiration Date V isits Requested Visits Authorized [id number] New Request 02/24/2022 03/21/2023 1 1 Specialty Diagnoses / Procedures Referred By Contac t Referred To Contact Diagnoses Malignant neoplasm of lower-inner quadrant of right breast of female, estrogen receptor positive Procedures US AXILLA FOR MAMMOGRAPHY RIGHT Marlene Olivas APRN-CNP [address] [place] [address] Referral ID Status Reason Start Date Expiration Date V isits Requested Visits Authorized [id number] New Request 02/24/2022 03/21/2023 1 1 Specialty Diagnoses / Procedures Referred By Contac t Referred To Contact Diagnoses Pre-op testing Procedures MRI BREAST BILATERAL WITH AND WITHOUT CONTRAST CHG MRI BREAST WITHOUT&WITH CONTRAST W/CAD BILATERAL Marlene Olivas APRN-CNP [address] [place] [phone] Referral ID Status Reason Start Date Expiration Date Visits Re quested Visits Authorized [id number] Closed 02/24/2022 03/21/2023 1 1 Reason Comments New Patient Specialty Diagnoses / Procedures Referred By Contac t Referred To Contact Plastic Surgery Diagnoses Malignant neoplasm of lower-inner quadrant of right breast of female, estrogen receptor positive Marlene Olivas APRN-PHARMACEUTICAL WORKER [address] [place] [address] Tyrell Daily MD [address] [facility] [address] [place] [address] Referral ID Status Reason Start Date Expiration Date V isits Requested Visits Authorized [id number] New Request 02/24/2022 03/21/2023 1 1 Specialty Diagnoses / Procedures Referred By Contac t Referred To Contact Diagnoses Malignant neoplasm of lower-inner quadrant of right breast of female, estrogen receptor positive Pre-op testing Procedures NUC MYOCARD PERF STRESS MIBI PHARM TX CHG MYOCARDIAL SPECT MULTIPLE STUDIES CHG MYOCARDIAL SPECT MULTIPLE STUDIES-T TX CARDIAC STRESS TST,INTERP/REPT ONLY TX CV STRS TST XERS&/OR RX CONT ECG W/O I&R Marlene Olivas APRN-PHARMACEUTICAL WORKER [address] [place] [address] Referral ID Status Reason Start Date Expiration Date Visits Re quested Visits Authorized [id number] Closed 02/24/2022 03/21/2023 1 1 Reason Comments Breast Cancer New patient visit fo r discussion of Radiation Therapy for RIGHT Breast Cancer Specialty Diagnoses / Procedures Referred By Contac t Referred To Contact Radiation Oncology Diagnoses Malignant neoplasm of lower-inner quadrant of right breast of female, estrogen receptor positive Marlene Olivas APRN-PHARMACEUTICAL WORKER [address] [place] [address] Referral ID Status Reason Start Date Expiration Date V isits Requested Visits Authorized [id number] New Request 02/24/2022 03/21/2023 1 1 Reason Comments New Patient Specialty Diagnoses / Procedures Referred By Contac t Referred To Contact Oncology Diagnoses Malignant neoplasm of lower-inner quadrant of right breast of female, estrogen receptor positive Marlene Olivas APRN-PHARMACEUTICAL WORKER [address] [place] [address] Referral ID Status Reason Start Date Expiration Date V isits Requested Visits Authorized [id number] New Request 02/24/2022 03/21/2023 1 1 Reason Comments Post Op Visit S/p right total mast ectomy with TE reconstruction Reason Comments Post Op Visit Reason Comments Post Op Visit Pt states is doing w ell, taking tylenol as needed, no fever, no redness or swelling, Had right mastectomy on 04/10/22, has [address] Reason Comments Breast Problem Reason Comments Follow-up Reason Comments Follow-up Follow-up visit and Oncotype review Reason Comments Pre-op Exam Reason Comments Simulation Specialty Diagnoses / Procedures Referred By Alberto t Referred To Contact Radiation Oncology Procedures CT SIMULATION Deepti Gomez MD, PhD [address] [place] [address] Referral ID Status Reason Start Date Expiration Date Visits Re quested Visits Authorized [id number] Closed 07/31/2022 08/25/2023 1 1 Specialty Diagnoses / Procedures Referred By Contac t Referred To Contact Diagnoses Malignant neoplasm of lower-inner quadrant of right breast of female, estrogen receptor positive Procedures BONE DENSITY AXIAL (HIP, PELVIS, SPINE) Mel Giron MD [address] [place] [address] Referral ID Status Reason Start Date Expiration Date V isits Requested Visits Authorized [id number] New Request 05/13/2022 06/07/2023 1 1 Reason Comments On Treatment Visit For radiation therap y for RIGHT sided breast cancer. 4/16 fractions, 1064/4256 cGy delivered. Reason Comments On Treatment Visit RIGHT Chest Wall 6/1 6 Fractions; 1596/4256 cGy Reason Comments Breast Cancer Follow up and CT sim ulation for radiation therapy for RIGHT sided breast cancer. Reason Comments On Treatment Visit RIGHT Chest Wall 16/ 16 Fractions; 4256/4256 cGy Reason Comments Breast Cancer Follow up for radiat ion therapy for RIGHT sided breast cancer completed 09/04/2022. Reason Comments Follow-up Pt states no breast concerns, had a left mammo today, history of right breast cancer Specialty Diagnoses / Procedures Referred By Contac t Referred To Contact Diagnoses Personal history of malignant neoplasm of breast Procedures MAMMO DIAGNOSTIC WITH KATHY Effie Paula, PAPER WOOD CUTTER-PHARMACEUTICAL WORKER [address] [id number] Referral ID Status Reason Start Date Expiration Date V isits Requested Visits Authorized [id number] New Request 04/15/2022 05/10/2023 1 1 Reason Comments Follow-up Exemestane Reason Comments Pre-op Exam Reason Comments Follow-up Letrozole Reason Comments Left Knee Pain Care Teams (unrecognized sec tion and content) Cop Examiner Relationship Specialty Start Date End Date Tucker Haywood MD [address] [place] [address] PCP - General Family Medicine 02/24/22 Cop Examiner Relationship Specialty Start Date End Date Tucker Haywood MD [address] [place] [address] PCP - General Family Medicine 02/24/22 Cop Examiner Relationship Specialty Start Date End Date Tucker Haywood MD [address] [place] [address] PCP - General Family Medicine 02/24/22 Cop Examiner Relationship Specialty Start Date End Date Tucker Haywood MD [address] [place] [address] PCP - General Family Medicine 02/24/22 Cop Examiner Relationship Specialty Start Date End Date Tucker Haywood MD [address] [place] [address] PCP - General Family Medicine 02/24/22 Cop Examiner Relationship Specialty Start Date End Date Tucker Haywood MD [address] [place] [address] PCP - General Family Medicine 02/24/22 Cop Examiner Relationship Specialty Start Date End Date Tucker Haywood MD [address] [place] [address] PCP - General Family Medicine 02/24/22 Cop Examiner Relationship Specialty Start Date End Date Tucker Haywood MD [address] [place] [address] PCP - General Family Medicine 02/24/22 Cop Examiner Relationship Specialty Start Date End Date Tucker Haywood MD [address] [place] [address] PCP - General Family Medicine 02/24/22 Cop Examiner Relationship Specialty Start Date End Date Tucker Haywood MD [address] [place] [address] PCP - General Family Medicine 02/24/22 Cop Examiner Relationship Specialty Start Date End Date Tucker Haywood MD [address] [place] [address] PCP - General Family Medicine 02/24/22 Cop Examiner Relationship Specialty Start Date End Date Tucker Haywood MD [address] [place] [address] PCP - General Family Medicine 02/24/22 Cop Examiner Relationship Specialty Start Date End Date Tucker Haywood MD [address] [place] [address] PCP - General Family Medicine 02/24/22 Cop Examiner Relationship Specialty Start Date End Date Tucker Haywood MD [address] [place] [address] PCP - General Family Medicine 02/24/22 Cop Examiner Relationship Specialty Start Date End Date Tucker Haywood MD [address] [place] [address] PCP - General Family Medicine 02/24/22 Cop Examiner Relationship Specialty Start Date End Date Tucker Haywood MD [address] [place] [address] PCP - General Family Medicine 02/24/22 Mel Giron MD [address] [facility] 4th Floor, [address] [place] [address] Oncologist Medical Oncology 05/13/22 Barbara Santiago, PAPER WOOD CUTTER-PHARMACEUTICAL WORKER [address], [address] [place] [address] Certified Nurse Practitioner 05/13/22 Cop Examiner Relationship Specialty Start Date End Date Tucker Haywood MD [address] [place] [address] PCP - General Family Medicine 02/24/22 eMl Giron MD [address], [address] [place] [address] Oncologist Medical Oncology 05/13/22 Barbara Santiago, PAPER WOOD CUTTER-PHARMACEUTICAL WORKER [address] Floor, [address] [place] [address] Certified Nurse Practitioner 05/13/22 Cop Examiner Relationship Specialty Start Date End Date Tucker Haywood MD [address] [place] [address] PCP - General Family Medicine 02/24/22 Mel Giron MD [address] Floor, [address] [place] [address] Oncologist Medical Oncology 05/13/22 Barbara Santiago, PAPER WOOD CUTTER-PHARMACEUTICAL WORKER [address] Floor, [address] [place] [address] Certified Nurse Practitioner 05/13/22 Cop Examiner Relationship Specialty Start Date End Date Tucker Haywood MD [address] [place] [address] PCP - General Family Medicine 02/24/22 Mel Giron MD [address] Floor, [address] [place] [address] Oncologist Medical Oncology 05/13/22 Barbara Santiago, PAPER WOOD CUTTER-PHARMACEUTICAL WORKER [address], [address] [place] [address] Certified Nurse Practitioner 05/13/22 Cop Examiner Relationship Specialty Start Date End Date Tucker Haywood MD [address] [place] [address] PCP - General Family Medicine 02/24/22 Mel Giron MD [address], [address] [place] [address] Oncologist Medical Oncology 05/13/22 Barbara Santiago, PAPER WOOD CUTTER-PHARMACEUTICAL WORKER [address] Floor, [address] [place] [address] Certified Nurse Practitioner 05/13/22 Cop Examiner Relationship Specialty Start Date End Date Tucker Haywood MD [address] [place] [address] PCP - General Family Medicine 02/24/22 Mel Giron MD [address] Floor, [address] [place] [address] Oncologist Medical Oncology 05/13/22 Barbara Santiago, PAPER WOOD CUTTER-PHARMACEUTICAL WORKER [address] Floor, [address] [place] [address] Certified Nurse Practitioner 05/13/22 Cop Examiner Relationship Specialty Start Date End Date Tucker Haywood MD [address] [place] [address] PCP - General Family Medicine 02/24/22 Mel Giron MD [address] Floor, [address] [place] [address] Oncologist Medical Oncology 05/13/22 Barbara Santiago, PAPER WOOD CUTTER-PHARMACEUTICAL WORKER [address] Floor, [address] [place] [address] Certified Nurse Practitioner 05/13/22 Cop Examiner Relationship Specialty Start Date End Date Tucker Haywood MD [address] [place] [address] PCP - General Family Medicine 02/24/22 Mel Giron MD [address], [address] [place] [address] Oncologist Medical Oncology 05/13/22 Barbara Santiago, PAPER WOOD CUTTER-PHARMACEUTICAL WORKER [address] Floor, [address] [place] [address] Certified Nurse Practitioner 05/13/22 Cop Examiner Relationship Specialty Start Date End Date Tucker Haywood MD [address] [place] [address] PCP - General Family Medicine 02/24/22 Mel Giron MD [address] Floor, [address] [place] [address] Oncologist Medical Oncology 05/13/22 Barbara Santiago, PAPER WOOD CUTTER-PHARMACEUTICAL WORKER [address] Floor, [address] [place] [address] Certified Nurse Practitioner 05/13/22 Cop Examiner Relationship Specialty Start Date End Date Tucker Haywood MD [address] [place] [address] PCP - General Family Medicine 02/24/22 Mel Giron MD [address] Floor, [address] [place] [address] Oncologist Medical Oncology 05/13/22 Barbara Santiago, PAPER WOOD CUTTER-PHARMACEUTICAL WORKER [address] Floor, [address] [place] [address] Certified Nurse Practitioner 05/13/22 Cop Examiner Relationship Specialty Start Date End Date Tucker Haywood MD [address] [place] [address] PCP - General Family Medicine 02/24/22 Mel Giron MD [address], [address] [place] [address] Oncologist Medical Oncology 05/13/22 Barbara Santiago, PAPER WOOD CUTTER-PHARMACEUTICAL WORKER [address] Floor, [address] [place] [address] Certified Nurse Practitioner 05/13/22 Cop Examiner Relationship Specialty Start Date End Date Tucker Haywood MD [address] [place] [address] PCP - General Family Medicine 02/24/22 Mel Giron MD [address], [address] [place] [address] Oncologist Medical Oncology 05/13/22 Barbara Santiago, PAPER WOOD CUTTER-PHARMACEUTICAL WORKER [address], [address] [place] [address] Certified Nurse Practitioner 05/13/22 Cop Examiner Relationship Specialty Start Date End Date Tucker Haywood MD [address] [place] [address] PCP - General Family Medicine 02/24/22 Mel Giron MD [address], [address] [place] [address] Oncologist Medical Oncology 05/13/22 Barbara Santiago, PAPER WOOD CUTTER-PHARMACEUTICAL WORKER [address] Floor, [address] [place] [address] Certified Nurse Practitioner 05/13/22 Cop Examiner Relationship Specialty Start Date End Date Tucker Haywood MD [address] [place] [address] PCP - General Family Medicine 02/24/22 Mel Giron MD [address], [address] [place] [address] Oncologist Medical Oncology 05/13/22 Barbara Santiago, PAPER WOOD CUTTER-PHARMACEUTICAL WORKER [address], [address] [place] [address] Certified Nurse Practitioner 05/13/22 Cop Examiner Relationship Specialty Start Date End Date Tucker Haywood MD [address] [place] [address] PCP - General Family Medicine 02/24/22 Mel Giron MD [address], [address] [place] [address] Oncologist Medical Oncology 05/13/22 Barbraa Santiago, PAPER WOOD CUTTER-PHARMACEUTICAL WORKER [address], [address] [place] [address] Certified Nurse Practitioner 05/13/22 Cop Examiner Relationship Specialty Start Date End Date Tucker Haywood MD [address] [place] [address] PCP - General Family Medicine 02/24/22 Mel Giron MD [address], [address] [place] [address] Oncologist Medical Oncology 05/13/22 Barbara Santiago APRN-PHARMACEUTICAL WORKER [address], [address] [place] [address] Certified Nurse Practitioner 05/13/22 Cop Examiner Relationship Specialty Start Date End Date Tucker Haywood MD [address] [place] [address] PCP - General Family Medicine 02/24/22 Mel Giron MD [address], [address] [place] [address] Oncologist Medical Oncology 05/13/22 Barbara Santiago APRN-PHARMACEUTICAL WORKER [address], [address] [place] [address] Certified Nurse Practitioner 05/13/22 Cop Examiner Relationship Specialty Start Date End Date Tucker Haywood MD [address] [place] [address] PCP - General Family Medicine 02/24/22 Mel Giron MD [address], [address] [place] [address] Oncologist Medical Oncology 05/13/22 Barbara Santiago PAPER WOOD CUTTER-PHARMACEUTICAL WORKER [address], [address] [place] [address] Certified Nurse Practitioner 05/13/22 Cop Examiner Relationship Specialty Start Date End Date Tucker Haywood MD [address] [place] [address] PCP - General Family Medicine 02/24/22 Mel Giorn MD [address], [address] [place] [address] Oncologist Medical Oncology 05/13/22 Barbara Santiago PAPER WOOD CUTTER-PHARMACEUTICAL WORKER [address], [address] [place] [address] Certified Nurse Practitioner 05/13/22 Team Status: Active Member Role Status Dates Tucker Haywood MD Primary Care Provider Active Team Status: Inactive Member Role Status Dates Tucker Haywood MD Primary Care Provider Active Sola Samayoa APRN [facility] Attending Provider Active Cop Examiner Relationship Specialty Start Date End Date Tucker Haywood MD [address] [place] [address] PCP - General Family Medicine 02/24/22 Mel Giron MD [address], [address] [place] [address] Oncologist Medical Oncology 05/13/22 Barbara Santiago PAPER WOOD CUTTER-PHARMACEUTICAL WORKER [address], [address] [place] [address] Certified Nurse Practitioner 05/13/22 Cop Examiner Relationship Specialty Start Date End Date Tucker Haywood MD [address] [place] [address] PCP - General Family Medicine 02/24/22 Mel Giron MD [address], [address] [place] [address] Oncologist Medical Oncology 05/13/22 Barbara Santiago PAPER WOOD CUTTER-PHARMACEUTICAL WORKER [address], [address] [place] [address] Certified Nurse Practitioner 05/13/22 Cop Examiner Relationship Specialty Start Date End Date Tucker Haywood MD [address] [place] [address] PCP - General Family Medicine 02/24/22 Mel Giron MD [address], [address] [place] [address] Oncologist Medical Oncology 05/13/22 Barbara Santiago PAPER WOOD CUTTER-PHARMACEUTICAL WORKER [address], [address] [place] [address] Certified Nurse Practitioner 05/13/22 Team Status: Inactive Member Role Status Dates Tucker Haywood MD Primary Care Provider Active Start: October 15, 2023 End: October 15, 2023 Sola Samayoa APRN [facility] Attending Provider Active Start: October 15, 2023 End: October 15, 2023 Cop Examiner Relationship Specialty Start Date End Date Tucker Haywood MD [address] [place] [address] PCP - General Family Medicine 05/30/13 Sarah Romero MD [address] [place] [address] Referring Neurology 07/14/17 Oralia Hinkle MD [address] [phone] Primary Staff Physician Cardiology 11/15/18 Wood Suazo MD [address] [place] [address] Primary Staff Physician Internal Medicine 03/06/21 Cop Examiner Relationship Specialty Start Date End Date Tucker Haywood MD [address] PCP - General Family Medicine 05/30/13 Sarah Romero MD [address] [phone] Referring Neurology 07/14/17 [place] [address] [place], [place] [phone] Primary Staff Physician Cardiology 11/15/18 Wood Suazo MD [address] [place] [address] Primary Staff Physician Internal Medicine 03/06/21 Scheduled Active and Recently Administ ered Medications (unrecognized section and content) Medication Order 04/09/2022 04/10/2022 04/11/2022 acetaminophen (TYLENOL) tablet 975 mg (COMPLETED) 975 mg, Oral, ONCE, 1 dose, On Wed04/10/22 at 0515, Maximum dose of acetaminophen is 4000 mg from all sources in 24 hours., Pre-op/Pre-Proc 0643 (Given - Provider: Gertrudis Swartz RN) acetaminophen (TYLENOL) tablet 975 mg 975 mg, Oral, EVERY 8 HOURS NON-STANDARD, First dose on Wed04/10/22 at 1600, Until Discontinued, Administer each dose four hours after dose of ibuprofen., Post-op/Post-Proc 1540 (Given - Provider: Jessica Esposito RN) 0029 (Given - Provider: Lilly Funez RN)0802 (Given - Provider: Ragini Galvez RN) ceFAZolin (ANCEF) 1 g in dextrose premix IVPB (COMPLETED) 1 g, Intravenous, Administer over 15 Minutes, EVERY 8 HOURS NON-STANDARD, 3 doses, First dose on Wed04/10/22 at 1415, Last dose on Wed04/11/22 at 0615, Post-op/Post-Proc 1544 ($$New Bag$$ - Provider: Jessica Esposito RN)2148 ($$New Bag$$ - Provider: Lilly Funez RN) 0551 ($$New Bag$$ - Provider: Lilly Funez RN) ibuprofen (MOTRIN) tablet 600 mg 600 mg, Oral, EVERY 8 HOURS NON-STANDARD, First dose on Wed04/10/22 at 2000, Until Discontinued, Administer each dose four hours after dose of acetaminophen., Post-op/Post-Proc 205 (Given - Provider: Lilly Funez RN) 0440 (Given - Provider: Lilly Funez RN) levothyroxine (SYNTHROID) tablet 50 mcg 50 mcg, Oral, DAILY BEFORE BREAKFAST, First dose on Wed04/11/22 at 0600, Until Discontinued, Post-op/Post-Proc 0552 (Given - Provider: Lilly Funez RN) ondansetron 4mg/2ml (ZOFRAN) injection 4 mg (COMPLETED) 4 mg, Intravenous, ONCE, 1 dose, On Wed04/10/22 at 1215, Recovery 1223 (Given - Provider: Lizzeth Marie RN) scopolamine (TRANSDERM-SCOP) patch 1 patch (CANCELED) 1 patch, Transdermal, ONCE, 1 dose, On Wed04/10/22 at 0515, Patient with history of motion sickness and/or previous postoperative nausea/vomiting. Each patch delivers 1 mg over 72 hours., Pre-op/Pre-Proc 0536 (Patch Applied - Provider: Gertrudis Swartz RN)1426 (Patch Removed - Provider: Jessica Esposito RN - Comment: Time automatically adjusted from order being discontinued) senna (SENOKOT) tablet 8.6 mg 8.6 mg, Oral, 2 TIMES DAILY, First dose on Wed04/10/22 at 1700, Until Discontinued, Post-op/Post-Proc 1540 (Given - Provider: Jessica Esposito RN) 0815 (Not Given - Provider: Ragini Galvez RN - Reason: Patient/family refused - Comment: will take after long drive home.) Continuous Medication Order 04/09/2022 04/10/2022 04/11/2022 lactated ringers IV solution (CANCELED) Intravenous, at 50 mL/hr, CONTINUOUS, Starting on Wed04/10/22 at 0515, Until Wed04/10/22 at 1348, Pre-op/Pre-Proc 0605 ($$New Bag$$ - Provider: Lakeisha Leigh RN)0848 (Paused - Provider: Bayron Ac APRN-STACK SUPERVISOR - Comment: Switch to gravity)0849 ($$New Bag$$ - Provider: Bayron Ac APRN-STACK SUPERVISOR)1425 (Stopped - Provider: Jessica Esposito RN) lactated ringers IV solution (CANCELED) Intravenous, at 75 mL/hr, CONTINUOUS, Starting on Wed04/10/22 at 1245, Until 04/11/22 at 0616, May saline well PIV after 6 hours if tolerating PO fluids w/o N/V., Post-op/Post-Proc 1238 ($$New Bag$$ - Provider: Lizzeth Marie RN)1544 (Paused - Provider: Jessica Esposito RN)1559 (Restarted - Provider: Jessica Esposito RN)1721 (Rate/Dose Verify - Provider: Jessica Esposito RN) 0232 (Stopped - Provider: Lilly Funez RN) PRN Medication Order 04/09/2022 04/10/2022 04/11/2022 ceFAZolin (ANCEF) 2 g in dextrose 100 mL premix IVPB (COMPLETED) 2 g, Intravenous, Administer over 30 Minutes, CALENDER TENDER TO PROCEDURE, 1 dose, Starting on Wed04/10/22 at 0508, Until Discontinued, Other, Surgical Prophylaxis, Initiate antibiotic administration 30-60 minutes prior to surgical incision and complete administration prior to surgical incision., Pre-op/Pre-Proc 07 (Given - Provider: Bayron Ac, PAPER WOOD CUTTER-STACK SUPERVISOR) cyclobenzaprine (FLEXERIL) tablet 10 mg 10 mg, Oral, EVERY 6 HOURS NEEDED, Starting on Wed04/10/22 at 1401, Until 04/11/22 at 1154, Other, Muscle cramping or pain, use prior to opioids., Post-op/Post-Proc 1741 (Given - Provider: Landon Esposito RN) HYDROmorphone (DILAUDID) injection 0.5-1 mg (CANCELED) 0.5-1 mg, Intravenous, EVERY 10 MINUTES NEEDED, 4 doses, Starting on Wed04/10/22 at 1210, Until Wed04/10/22 at 1348, Moderate Pain, Recovery 1235 (Given - Provider: Lizzeth Marie RN) isosulfan blue (LYMPHAZURIN) 1 % injection (CANCELED) NEEDED, Starting on Wed04/10/22 at 0842, Until Wed04/10/22 at 1151, Intra-op/Intra-Proc 08 (Given - Provider: Stuart Smallwood MD) ondansetron 4mg/2ml (ZOFRAN) injection 4 mg 4 mg, Intravenous, EVERY 6 HOURS NEEDED, Starting on Wed04/10/22 at 1401, Until 04/11/22 at 1154, Nausea / Vomiting, 1st line, If N/V persists through 1st line, continue 1st line therapy in addition to 2nd line therapy., Post-op/Post-Proc oxyCODONE (ROXICODONE) tablet 2.5 mg(Linked Group 1) 2.5 mg, Oral, EVERY 4 HOURS NEEDED, Starting on Wed04/10/22 at 1401, Until 04/11/22 at 1154, Moderate Pain, Use as initial dose. Higher dose may be administered if lower dose was previously documented as ineffective and did not result in adverse effects (RR<10, decrease in level of consciousness)., Post-op/Post-Proc 2049 (See Alternative - Provider: Lilly Funez RN) oxyCODONE (ROXICODONE) tablet 5 mg(Linked Group 1) 5 mg, Oral, EVERY 4 HOURS NEEDED, Starting on Wed04/10/22 at 1401, Until 04/11/22 at 1154, Moderate Pain, Higher dose may be administered if lower dose was previously documented as ineffective and did not result in adverse effects (RR<10, decrease in level of consciousness). Decrease back to lower dose if patient has adverse effects, or no PRN used in previous 12 hours., Post-op/Post-Proc 2049 (Given - Provider: Lilly Funez RN) povidone-iodine (BETADINE) 10 % 59 mL in sodium chloride 0.9 % 120 mL irrigation solution (CANCELED) NEEDED, Starting on Wed04/10/22 at 1047, Until Wed04/10/22 at 1151, Intra-op/Intra-Proc 1047 (Given - Provider: Kyler Daily MD - Comment: used to irrigate breast pocket) povidone-iodine (BETADINE) 10 % topical solution (CANCELED) NEEDED, Starting on Wed04/10/22 at 1045, Until Wed04/10/22 at 1151, Intra-op/Intra-Proc 1045 (Given - Provider: Kyler Daily MD - Comment: applied to skin of breast/chest) prochlorperazine (COMPAZINE) injection 10 mg 10 mg, Intravenous, EVERY 6 HOURS NEEDED, Starting on Wed04/10/22 at 1401, Until 04/11/22 at 1154, Refractory Nausea Vomiting, In addition to 1st line therapy., Post-op/Post-Proc sodium chloride 0.9 % irrigation (CANCELED) NEEDED, Starting on Wed04/10/22 at 0949, Until Wed04/10/22 at 1151, Intra-op/Intra-Proc 0949 (Given - Provider: Stuart Smallwood MD)1121 (Given - Provider: Tyrell Daily MD) tobramycin PF (NEBCIN) 80 mg, ceFAZolin (ANCEF) 1 g in sodium chloride 0.9 % 1,000 mL irrigation solution (CANCELED) NEEDED, Starting on Wed04/10/22 at 0949, Until Wed04/10/22 at 1151, Intra-op/Intra-Proc 0949 (Given - Provider: Stuart Smallwood MD) tobramycin PF (NEBCIN) 80 mg, ceFAZolin (ANCEF) 1 g in sodium chloride 0.9 % 500 mL irrigation solution (CANCELED) NEEDED, Starting on Wed04/10/22 at 1045, Until Wed04/10/22 at 1151, Intra-op/Intra-Proc 1045 (Given - Provider: Kyler Daily MD - Comment: used to irrgate breast pocket) traMADol (ULTRAM) tablet 50 mg 50 mg, Oral, EVERY 6 HOURS NEEDED, Starting on Wed04/10/22 at 1401, Until 04/11/22 at 1154, Mild Pain, Moderate Pain, Post-op/Post-Proc 1426 (Given - Provider: Landon Esposito, RN) No Frequency Medication Order 04/09/2022 04/10/2022 04/11/2022 HYDROmorphone (DILAUDID) injection (COMPLETED) 1 dose, Starting on Wed04/10/22 at 1201, Created by cabinet override 1219 (Given - Provider: Carrie Marie RN) Linked Groups Order Group 1: oxyCODONE (ROXICODONE) tablet 2.5 mgJump to med 2.5 mg, Oral, EVERY 4 HOURS NEEDED, Starting on Wed04/10/22 at 1401, Until 04/11/22 at 1154, Moderate Pain
Use as initial dose. Higher dose may be administered if lower dose was previously documented as ineffective and did not result in adverse effects (RR<10, decrease in level of consciousness).
Post-op/Post-Proc Or oxyCODONE (ROXICODONE) tablet 5 mgJump to med 5 mg, Oral, EVERY 4 HOURS NEEDED, Starting on Wed04/10/22 at 1401, Until 04/11/22 at 1154, Moderate Pain
Higher dose may be administered if lower dose was previously documented as ineffective and did not result in adverse effects (RR<10, decrease in level of consciousness). Decrease back to lower dose if patient has adverse effects, or no PRN used in previous 12 hours.
Post-op/Post-Proc Goals (unrecognized section and content) Goals may be documented in a n alternate section Source Comments (unrecognize d section and content) In the event this informatio n is protected by the Federal Confidentiality of Alcohol and Drug Abuse Patient Records regulations: The Federal rules restrict any use of the information to criminally investigate or prosecute any alcohol or drug abuse patient.[facility] the event this information is protected by the Federal Confidentiality of Alcohol and Drug Abuse Patient Records regulations: The Federal rules restrict any use of the information to criminally investigate or prosecute any alcohol or drug abuse patient.[facility] FOR RECORDS PERTAINING TO PATIENTS WHO ARE OR HAVE BEEN ENROLLED IN A CHEMICAL DEPENDENCY/SUBSTANCEABUSE PROGRAM, SOME INFORMATION MAY BE OMITTED. This clinical summary was aggregated from multiple sources. Caution should be exercised in using it in the provision of clinical care. This summary normalizes information from multiple sources, and as a consequence, information in this document may materially change the coding, format and clinical context of patient data. In addition, data may be omitted in some cases. CLINICAL DECISIONS SHOULD BE BASED ON THE PRIMARY CLINICAL RECORDS. [facility]. provides no warranty or guarantee of the accuracy or completeness of information in this document.
[2024-02-18 13:50] LABS: Thyroid Stimulating Hormone 3.768 uIU/mL (0.358-3.740)
== END 2024-02-18 12:10 | disposition home or self-care (01) ==
LOC: LAB 12:11
PROVIDERS: PCP Family Medicine; Visit Provider Family Medicine
DX: E03.9 Hypothyroidism, unspecified (principal)
CPT/HCPCS: 36415; 84439; 84443

== ENCOUNTER 2024-12-19 09:58 | Outpatient (OUT) | payer MEDICARE, OTHER, SELFPAY ==
[2024-12-19 10:50] LABS: Thyroid Stimulating Hormone 2.723 uIU/mL (0.358-3.740)
[2024-12-19 11:18] LABS: Free T4 1.15 ng/dL (0.76-1.46)
== END 2024-12-19 09:59 | disposition home or self-care (01) ==
LOC: LAB 09:59
PROVIDERS: PCP Family Medicine; Visit Provider Family Medicine
DX: E03.9 Hypothyroidism, unspecified (principal)
CPT/HCPCS: 36415; 84439; 84443

== ENCOUNTER 2025-07-31 11:39 | Outpatient (OUT) | payer MEDICARE, OTHER, SELFPAY ==
--- OUTSIDE RECORDS SUMMARY | 2025-07-31 11:44 | XMS_ITS | Clinical Summary ---
Author Organization [facility] Address [address] [place] [address], [address] [place] [address] Care Team Providers Care Business Area Director Name Role Phone Unavailable Primary Care Provider Unavailabl e Social History Tobacco UseTypesPacks/DayYears UsedDateSmoking Tobacco: Never Assessed CommentsUnknownSex and Gender InformationValueDate RecordedSex Assigned at Not on fileLegal XwvDhtxtl16/10/2013 4:04 PM ESTGender IdentityNot on fileSexual OrientationNot on file Plan of Treatment Not on file
--- OUTSIDE RECORDS SUMMARY | 2025-07-31 11:44 | XMS_ITS ---
Author Organization [facility] Address [address] [place] [address] Care Team Providers Care Chief Accountant Name Role Phone Anna Marie Mata MD Primary Care Provider [phone] Mel Sandy MD Unavailable [phone] Barbara Land APRN-PATENT SEARCHER Unavailable [phone] Active Problems ProblemNoted DateDiagnosed DateGenetic sydaxdo0204/01/2022 Overview (04/01/2022): GERMLINE: Lab (03/19/2022) 77 genes tested -MUTYH Pathogenic variant Malignant neoplasm of lower-inner quadrant of right breast of female, estrogen receptor xijvbgli51/24/2022 Cancer Staging: Clinical stage from 01/20/2022:Stage IB(cT2, cN0, cM0, G1, ER+, RI+, HER2-) - Unsigned Pathologic stage from 04/10/2022:Stage IB(pT2, pN1a(sn), cM0, G2, ER+, RI+, HER2- , Oncotype DX score: 23) - Signed by Hernan Cummings APRN-PATENT SEARCHER on 08/06/2022 Overview (02/03/2022): 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 Past Treatment and Therapy Plans No past plan information found. Current Radiation Episodes * 3D MECHATRONICS ENGINEER: Right BreastOverview* First Treatment DateLatest Treatment Date Treatment SiteTechniqueGoalEpisode Rhyrudaw63/01/2023* Right Breast 3D MECHATRONICS ENGINEER??? * Linked Problems Treatment Courses* Treatment PeriodFraction DoseFractionsTotal DosePlansPlanned CW_Nds_R_DIBH110/12/2021 - 3266 cGy16 / 164,256 cGyReference Points Delivered1.A CW_Nodes_R110/12/2021 - 09/04/2022?4,256 cGy Treatment Summaries Malignant neoplasm of lower-inner quadrant of right breast of female, estrogen receptor positive* Images from the original note were not included. [facility] Treatment Summary and Survivorship Care Plan General Information Patient Name Malia Cook Patient (mobile) Date of 1960 Care Team/Location Medical Oncologist Dr. Mel Giron at [facility] Surgical Oncologist Plastic Surgeon Dr. Stuart Smallwood at [facility] Dr. Sharath Alvarado at [facility] Radiation Oncologist Dr. Deepti Gomez at [facility] Primary Care Provider Dr. Anna Marie Mata Other Provider Treatment Summary Oncology History Malignant neoplasm of lower-inner quadrant of right breast of female, estrogen receptor positive 01/20/2022 Initial Diagnosis Indication for Imaging: Right breast lump Date: 01/15/22 Imaging: Bilateral diagnostic mammogram and right breast ultrasound showed a right breast mass at the 5 O'clock position (performed through [facility]) Date: 01/20/22 Biopsy Site: Right breast 5 O'clock Biopsy Type: Ultrasound guided (performed through [facility];outside slides reviewed by [facility] [[facility]] pathology lab) Pathology: Grade: 2 Histologic Type: Invasive mammary carcinoma with lobular features Estrogen Receptor (ER) Status: Positive (95% strong) Progesterone Receptor (RI) Status: Positive (95% strong) HER2/lizzette Status: Negative 02/24/2022 Other Patient presented to [facility] [[facility]] for evaluation. 04/10/2022 Surgery Right mastectomy and sentinel lymph node biopsy (SLNB). Immediate reconstruction with placement of tissue plaque maker. 04/10/2022 Pathology Grade: 2 Histologic Type: Invasive ductal carcinoma (IDC) Tumor Size: 4.2 cm Surgical Margins: Negative for carcinoma Lymph Nodes: Positive for macrometastatic carcinoma (1/). 04/10/2022 Other Oncotype Recurrence Score: 23 Distant Recurrence Risk At 9 Years With Aromatase Inhibitor (AI) or Tamoxifen (Nolvadex) Alone: 19% 04/10/2022 - Cancer Staged Staging form: Breast, AJCC 8th Edition - Pathologic stage from 04/10/2022: Stage IB (pT2, pN1a(sn), cM0, G2, ER+, RI+, HER2-, Oncotype DX score: 23) 06/29/2022 Surgery Right breast, exchange tissue plaque maker for permanent implant. Excision of right breast standing cone deformity. Left breast, reduction. 08/11/2022 - 09/04/2022 Radiation 4256 centigray (cGy) in 16 fractions to the right chest wall and regional nodes 08/2022 Endocrine Therapy Initiated Anastrozole (Arimidex). Background Information Family History Family History Problem Relation Age of Onset [...] Maternal Cousin 40 Uterine Cancer Neg Hx Genetic Counseling Yes, on 03/04/2022 with SIOMARA Scott at [facility] Genetic Testing Results Based upon ???s personal and family history, she underwent multi-gene panel testing for variants in genes reported to be associated with hereditary cancer predisposition. 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 Follow-up and Survivorship Care Schedule of Clinical Visits Clinical Visits When/How often Coordinating Providers Breast Oncology Visits Every 3-6 months x 3 years, then every 6-12 months until 5 years or completion of any therapy. If breast cancer was Estrogen receptor (ER) positive, your oncologist may recommend seeing you annually until 10 years out from diagnosis/completion of treatment. These visits may be alternated with your medical, surgical and/ or radiation oncologist. Primary care Visits Annually and as needed (PRN) Primary Care Provider (PCP) Cancer Surveillance and Other Recommended Related Tests Cancer surveillance test When/How often Coordinating Provider Body Imaging Not recommended if asymptomatic New concerning symptoms should be worked up by Oncologist or PCP Blood Work/Tumor Markers Not recommended N/A Mammography Annually (left breast) Dr. Smallwood Breast MRIs In selected cases breast MRI may be recommended Breast Oncology Team Cancer screening/health wellness testing When/How often Coordinating Provider Gynecological Exam Per Standard Guidelines *please refer to [facility] patient education document, Cancer Screening Guidelines and/or [facility] Survivorship booklet, for further information. PCP or [facility] Osteoporosis Screening If on an aromatase inhibitor, DEXA every two years. If not on an aromatase inhibitor, per Standard Guidelines. Standard Guidelines: Baseline bone density exam at age 65. Recommended follow up interval based on results of exam, and recommendation of your provider. If you have certain risk factors (parental history of hip fracture,smoking, excessive alcohol consumption, low body weight, are on certain medications) and are post-me nopausal, it may be recommended that you have a bone density exam at an earlier age. If you have chemotherapy-induced menopause (no periods for 12 months due to chemotherapy), a bone density exam and treatments to prevent bone loss are recommended. Dr. Giron while on Aromatase Inhibitor therapy. Upon completion this will be managed by PCP or [facility] Colonoscopy Per National Comprehensive Cancer Network (NCCN) Guidelines for individuals with MUTYH gene mutation: Every 5 years, starting age 40 (or 10 years prior to age of first-degree relative's age at colon cancer diagnosis) PCP Vaccines Per Standard Guidelines: Yearly flu vaccine to prevent influenza Tetanus shot every 10 years Consider shingles vaccine if over age 50 Pneumovax recommended for those 65 and older, and for those felt to be at risk for sheridan pneumonia COVID-19 vaccine PCP Other recommended cancer screening tests: Please continue to see your primary care provider for all general health care recommended for a women of your age, including cancer screening tests. Any symptoms should be brought up to the attentionof your provider: Anything that represents a brand new symptom Anything that represents a persistent symptom Anything you are worried about that might be related to the cancer coming back Current Therapy and Common Side Effects: Need for ongoing (adjuvant) treatment for cancer: Yes Adjuvant Therapy name: Anastrazole (Arimidex) Planned Duration: 5-10 years Side Effects: Please refer to Wellness and Survivorship pamphlet provided for side effects related to adjuvant therapy, as well as other common and late/joint terminal attack controller side effects related to treatment. Aromatase Inhibitor Anastrozole (Arimidex), Letrozole (Femara) and Exemestane (Aromasin) Induced Side Effects: Side effects may include joint pain, hot flashes, vaginal dryness and bone loss due to decreased estrogen levels. Patients on these agents are monitored for bone loss with a bone mineral density exam completed every two years. Other Side Effects of Treatment Today we talked about the side effects you may be having. Here are some suggestions for management. You may be having symptoms related to menopause and side effects of hormone therapy. We discussed ways to manage those symptoms and you were given a patient education resource, Managing Symptoms of Menopause, that includes content regarding management of hot flashes, skin/hair dryness, mood and emotional changes, osteoporosis. Potential (common) Side Effects of Treatment Post-surgical pain: You may experience pain in your surgical site for sometime after your surgery. It is often described as a sharp, shooting pain that comes and goes very quickly. This is a normal sensation as nerves, that were cut during surgery are regenerating and testing out their pathways. Some patients find this goes away with time and others unfortunately deal with this for a long time after surgery. Lymphedema: If you have had any lymph nodes removed with or without radiation therapy, you have a higher risk of developing lymphedema. In general, it is recommended that patients are cautious with lifting heavy objects with the involved arm. Begin all exercises slowly and progress gradually. Aching, throbbing or heaviness in the involved arm prompted by exercise or activity should be avoided. The best way to reduce your risk of lymphedema is through good skin hygeine, appropriate activity and maintaining your ideal body weight. Vaginal Dryness: Dryness and irritation with intercourse is a common side effect of chemotherapy and antiestrogen therapies. This is due to thinning of the vulvar and vaginal tissue due to a lack of estrogen associated with natural, surgical or chemotherapy induced menopause. The first line treatment is the use of a water based lubricant, such as Astroglide. If this is irritating, liquid vegatable oil can be tried. It is important to continue sexual intercourse and to maintain intimacy. Use of a nonirritating bar soap, such as Neutrogena glycerin bar or Basis for sensitive skin on the vulva for simple cleansing with your fingertips, once a day is all that is needed for hygiene. If irritation of the vulva is present due to dryness, a fingertip application of Vaseline to the opening of the vagina can be soothing. Depression/Anxiety: Mood changes can occur as a result of breast cancer diagnosis and/or treatment.It is important to discuss these feelings with your provider. There are additional resouces available such as individual counseling, support groups and medications. Possible late/long-term effects: Possible late- and long-term effects that someone with this type of cancer and treatment may experience: Radiation therapy: The most common long-term side effect of external beam radiation therapy to the breast or chest wall +/- regional lymph nodes following surgery for Breast Cancer is changes to the skin and possibly connective tissues that may affect the appearance or function of the irradiated tissue. Changes in skin color: Some women may notice that the skin of the treated breast is slightly darker(hyperpigmented) when compared to the other breast. Women of color (-Haitian or women, for example) may notice areas of produce laborer color (hypopigmentation). Many women, however, do not have significant long-lasting changes to the color of the skin. Changes in skin texture or breast size: Some women notice that the treated breast may appear slightly smaller after the lumpectomy and radiation. There is volume loss from the surgery, and radiation can cause the breast tissue to contract, sometimes causing a slightly smaller and firmer-appearing breast. The skin of the treated breast or chest wall may also feel less soft (firmer) and thicker. Range of Motion: Women who require treatment of surrounding lymph nodes in addition to the breast or chest wall, have a risk of fibrosis (scarring) causing some contraction of the soft tissues, including muscles, in the neck and axilla. This contraction can lead to changes in the range of motion atthe shoulder/upper extremity, or possibly, the neck. There are several physical therapy techniques to re-gain lost range of motion. Breast Reconstruction: For women who are undergoing or have undergone breast reconstruction following a mastectomy for breast cancer, radiation can alter the cosmesis (how it looks) of the reconstructed breast, or can make an upcoming reconstructive surgery more difficult because of the changes to the skin and soft tissue caused by radiation. Your reconstructive surgeon will optimize your treatment and surgery to provide the best possible cosmetic outcome. Edema/Swelling of tissue: If lymph nodes are resected during surgery (either sentinel node evaluation or a more extensive axillary lymph node dissection), there may be residual edema (swelling) of the upper extremity from these surgical techniques. Radiotherapy can exacerbate (make worse) this swelling, which may be permanent. Lung inflammation: Finally, there is a small risk (below 1%) that a portion of the lung may undergoan inflammatory reaction called pneumonitis. The risk is increased in women undergoing regional conrado radiation, but is still a rare event. This condition typically resolves with medication (oral steroids). Common concerns: You may experience issues with the areas listed below. If you have any concerns in these or other areas, please speak with your doctor, nurse or social worker health services to find out how you can get help with them: Emotional and mental health Fatigue Weight changes Physical functioning Stopping smoking Memory or concentration loss Sexual functioning Parenting or fertility School/Work Financial advice or assistance including insurance Healthy lifestyle recommendations: A number of lifestyle/behaviors can affect your ongoing health, including the risk for the cancer coming back or developing another cancer. Discuss these recommendations with your doctor or nurse. Tobacco use/cessation Alcohol use Weight management Diet Sun screen use Physical activity Resources you may be interested in: [facility] Patient Education materials [facility] Survivorship video [https://www.Wattage.com/watch?o=h089mIhWTK2] [facility] [http://cancer.osu.edu/patient-support/wowotjbayz-bob-rvcluck] [employer] [www.cancer.org] Cancer.Net [www.cancer.net] [facility] Care For Life videos: http://www.go.osu.edu/JCFLvideos Precautions for Patients with Hormone Sensitive Cancers (Breast) Provided by CARTER Mitchell on 09/23/22
--- OUTSIDE RECORDS SUMMARY | 2025-07-31 11:44 | XMS_ITS | Clinical Summary ---
Author Organization [facility] Address [address] [place] [address] Care Team Providers Care Testing Engineer Name Role Phone Anna Marie Mata MD Primary Care Provider [phone] Allergies Active AllergyReactionsCriticalityNoted WarcAqhxbtibBbtmultiyzc21/01/2013 Other Reaction(s): Mental Status Change, Other (See Comments), Unknown, Unknown Reaction, floating feeling Other reaction(s): Mental Status Change, Other (See Comments) Other Reaction(s): Cognitive impairment, Hallucinations Medications MedicationSigDispense QuantityRefillsLast FilledStart DateEnd DateStatus levothyroxine (Synthroid, Levoxyl) 75 MCG tablet Take 75 mcg by mouth Daily12/08/2023ctive montelukast (Singulair) 10 MG tablet 11/23/2023ctive famotidine (Pepcid) 20 MG tablet Take 20 mg by mouth at bedtimeActive furosemide (Lasix) 20 MG tablet 11/19/2023ctive cetirizine (ZyrTEC) 10 MG tablet 1 zkncsd9810/18/2023ctive vitamin E 180 MG (400 UNIT) capsule Take 400 Units by mouth in the morning.Active magnesium oxide (Mag-Ox) 400 MG tablet Take 400 mg by mouth in the morning.10/19/2023ctive VITAMIN D PO Take by mouthActive ibuprofen 200 MG tablet Take by mouthActive albuterol (2.5 MG/3ML) 0.083% nebulizer solution 10/18/2023ctive esomeprazole (NexIUM) [address] capsule 10/19/2023ctive tamoxifen (Nolvadex) 20 MG chemo tablet 4Active pyridoxine (B-6) 50 MG tablet Take 50 mg by mouth in the morning.Active aspirin 81 MG EC tablet Take 81 mg by mouth5Active celecoxib (CeleBREX) 200 MG capsule Indications:Left knee pain, unspecified chronicityTake 1 capsule (200 mg) by mouth in the morning and 1 capsule (200 mg) before bedtime. 180 capsule 5Active acetaminophen (Tylenol) 500 MG tablet TAKE 1 TABLET BY MOUTH EVERY 4 HOURS5Active Ascorbic Acid (vitamin C) 1000 MG tablet Take 1,000 mg by mouth DailyActive Active Problems No known active problems Family History Medical HistoryRelationNameCommentsDiabetesBrotherBillDiabetesFatherWilliamHeart diseaseFatherWilliamHypertensionMotherBeatriceHeart diseaseMother's Brother DonaldCancerMother's SisterNancyDiabetesSisterKimRelationNameStatusComments BrotherBillFatherWilliamMotherBeatriceMother's BrotherDonaldMother's SisterNancy SisterKim Social History Tobacco UseTypesPacks/DayYears UsedDateSmoking Tobacco: NeverSmokeless Tobacco: Never Tobacco Cessation:Counseling Given: Not Answered Alcohol UseStandard Drinks/WeekCommentsNever0 (1 standard drink = 0.6 oz pure alcohol)CommentsUnknownSex and Gender InformationValueDate RecordedSex Assigned at BirthNot on fileLegal JgtDkjaey28/15/2023 7:20 PM EDTGender Identity Not on fileSexual OrientationNot on file Last Filed Vital Signs Vital SignReadingTime TakenCommentsBlood Vqkefuji146/7310/30/2019 12:00 PM EST Pulse--Txpgfwguryv26.3 ??C (97.4 ??F)07/25/2024 1:28 PM ESTRespiratory Rate-- Oxygen Saturation--Inhaled Oxygen Concentration--Fgysxx59 kg (141 lb)04/12/2025 8:48 AM XKYMdykue619 cm (5' 3 )04/12/2025 8:48 AM EDTBody Mass Index24.98 04/12/2025 8:48 AM EDT Plan of Treatment DateTypeDepartmentCare Team (Latest Contact Info)Auhqdcwatcq05/16/2026 8:15 AM EDTOffice Visit [facility] [address] [place] [address] Ba Ramirez, [address] [place] [address] Insurance * Guarantor: Malia Cook TypeRelation to PatientDate of BirthPhone Billing AddressPersonal/DxjnwwTfeu90/16/1961 [address] [address] [place] [address] Care Teams Team MemberRelationshipSpecialtyStart DateEnd Date Anna Marie Mata MD [address] [facility] [place] [id number] PCP - GeneralFamily Medicine01/01/25
--- OUTSIDE RECORDS SUMMARY | 2025-07-31 11:44 | XMS_ITS | Clinical Summary ---
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 Role Phone Anna Marie Mata MD Primary Care Provider [phone] Mel Sandy MD Unavailable [phone] Barbara Land APRN-MANAGER HOME IMPROVEMENT Unavailable [phone] Allergies Active AllergyReactionsCriticalityNoted QmeaPoiganazBvwpgjadren78/01/2013 Other reaction(s): Mental Status Change, Other (See Comments) Medications MedicationSigDispense QuantityRefillsLast FilledStart DateEnd DateStatus furOSEmide 20 MG tablet Take 1 tablet by mouth daily.Active Levothyroxine 75 MCG tablet Take 1 tablet by mouth daily.01/23/2022ctive esomeprazole [address] capsule Take 1 capsule by mouth every morning before breakfast.Active Albuterol Sulfate 108 (90 Base) MCG/ACT Aerosol Powder, breath activated Inhale. PrnActive MAGNESIUM OXIDE PO Take by mouth.Active acetaminophen 650 MG Tab CR Take 1 tablet by mouth every 6 hours for 2 days. 8 tablet 06/29/2022ctive ibuprofen 400 MG tablet Take 1 tablet by mouth every 6 hours for 2 days. 8 tablet 06/29/2022ctive Calcium Carbonate-Vitamin D (CALTRATE 600+D PO) Take by mouth.Active vitamin E 400 units capsule Take 1 capsule by mouth daily.Active Meloxicam (MOBIC PO) Take by mouth.Active Cetirizine 10 MG tablet Take 1 tablet by mouth daily.Active Montelukast 10 MG tablet Take 1 tablet by mouth daily.Active faMOTIdine 20 MG tablet Take 1 tablet by mouth at bedtime.Active pyridoxine 50 MG tablet Take 1 tablet by mouth daily.Active Active Problems ProblemNoted DateDiagnosed DateGenetic neonadc4104/01/2022 Overview (04/01/2022): GERMLINE: Lab (03/19/2022) 77 genes tested -MUTYH Pathogenic variant Malignant neoplasm of lower-inner quadrant of right breast of female, estrogen receptor hzrjyfot55/24/2022 Cancer Staging: Clinical stage from 01/20/2022:Stage IB(cT2, cN0, cM0, G1, ER+, MD+, HER2-) - Unsigned Pathologic stage from 04/10/2022:Stage IB(pT2, pN1a(sn), cM0, G2, ER+, MD+, HER2- , Oncotype DX score: 23) - Signed by CARTER Georges on 08/06/2022 Overview (02/03/2022): 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, ER+/MD+/HER2- Encounters DateTypeDepartmentCare RgpuZigelfzeday63/01/2025Telephone Medical Oncology at [facility] [address] 4th [address], [address] [place] [address] Mel Sandy MD Medication Vgvqydf5705/16/2025Orders Only Division of Medical Oncology [address] 3rd [place] [address] Dana Roland APRN-MANAGER HOME IMPROVEMENT Examination of participant in clinical trialfrom Last 3 Months Family History Medical HistoryRelationNameCommentsOther - SpecifyBrother 1COD undetermined, lung problems, d. 69Other - SpecifyBrother 2COD undetermined, lung problems, d. 70DiabetesBrother 3DiabetesFatherOther - SpecifyFatherpacemakerOvarian Cancer Maternal Aunt 1d. 85Cancer- OtherMaternal Aunt 2CaSU, d. 50sOther - Specify Maternal Aunt 3stomach surgery and many medical problemsCancer- OtherMaternal Cousin 1CaSULeukemiaMaternal Cousin 1Breast CancerMaternal Cousin 2Heart Disease - OtherMaternal Grandfatherd. <60Thyroid CancerMaternal Grandmotherdx. young, also had goiter removed, d. 82Heart Disease - OtherMaternal Emwonu2Mqdyviiea's MotherColorectal CancerSisterDiabetesSisterOther - SpecifySonnon-malignant spot removed from foreheadUterine CancerNeg HxRelationNameStatusCommentsBrother 1 DeceasedBrother 2DeceasedBrother 3AliveFatherDeceasedMaternal Aunt 1Deceased Maternal Aunt 2DeceasedMaternal Aunt 3DeceasedMaternal Cousin 1DeceasedMaternal Cousin 2AliveMaternal GrandfatherDeceasedMaternal GrandmotherDeceasedMaternal UncleDeceasedMotherDeceasedPaternal GrandfatherDeceasedPaternal Grandmother DeceasedSisterAliveSonAlive Social History Tobacco UseTypesPacks/DayYears UsedDateSmoking Tobacco: NeverSmokeless Tobacco: NeverAlcohol UseStandard Drinks/WeekCommentsYes1 (1 standard drink = 0.6 oz pure alcohol)Overall Financial Resource Strain (CARDIA)AnswerDate RecordedHow hard is it for you to pay for the very basics like food, housing, medical care, and heating?Not hard at all01/27/2023[facility] [place] [facility] Occup[facility] - Occupational Stress QuestionnaireAnswerDate RecordedDo you feel stress - tense, restless, nervous, or anxious, or unable to sleep at night because yourmind is troubled all the time - these days?Not at all09/24/2022Exercise Vital SignAnswer Date RecordedOn average, how many days per week do you engage in moderate to strenuous exercise (like a brisk walk)?4 days09/24/2022On average, how many minutes do you engage in exercise at this level?60 min09/24/2022Hunger Vital SignAnswerDate RecordedWithin the past 12 months, you worried that your food would run out before you got the money to buymore.Never true01/27/2023Within the past 12 months, the food you bought just didn't last and you didn't have money to get more.Never true01/27/2023RAPARE - TransportationAnswerDate RecordedIn the past 12 months, has lack of transportation kept you from medical appointments or from getting medications?No01/27/2023In the past 12 months, has lack of transportation kept you from meetings, work, or from getting things needed for daily living?No01/27/2023Housing Stability Vital SignAnswerDate RecordedIn the last 12 months, was there a time when you were not able to pay the mortgage or rent on time?No02/24/2022Number of Places Lived in the Last Year Not on file02/24/2022In the last 12 months, was there a time when you did not have a steady place to sleep or slept in [place] (including now)?No02/24/2022 DepressionAnswerDate RecordedPHQ-9 Total Score (Interpretation of Total Score 1- 4 = Minimal depression; 5-9 = Mild depression; 10-14 = Moderate depression; 15- 19 = Moderately severe depression)CommentsNoSex and Gender InformationValueDate RecordedSex Assigned at BirthNot on fileLegal SexFemale 01/30/2022 4:19 PM EDTGender TzmolxwxAwokzp23/16/2024 7:10 AM ESTSexual ZxohkjnhigsBepvzxvv80/16/2024 7:10 AM EST Last Filed Vital Signs Vital SignReadingTime TakenCommentsBlood Gnthmfgn097/7903/28/2025 3:33 PM EDT Gieqs804403/28/2025 3:33 PM AWBKngeeqbebvm10.4 ??C (97.5 ??F)03/28/2025 3:33 PM EDTRespiratory Gtqe109703/28/2025 3:33 PM EDTOxygen Ikpgqjpoar70%03/28/2025 1:34 PM EDTInhaled Oxygen Concentration--Uvrgud77.7 kg (136 lb)03/28/2025 3:33 PM EDT Xyczmq541 cm (5' 3 )03/28/2025 3:33 PM EDTBody Mass Index24.0903/28/2025 3:33 PM EDT Plan of Treatment DateTypeDepartmentCare Team (Latest Contact Info)Pwthoaddxps12/21/2026 2:40 PM ESTOffice Visit Medical Oncology at [facility] [address], [address] [place] [address] Mel Sandy MD [address], [address] [place] [address] 04/02/2026 1:30 PM EDTAppointment [facility] at [facility] [address] [place] [address] Stuart Smallwood MD [address], [address] [place] [address] 04/02/2026 2:30 PM EDTOffice Visit Division of Surgical Oncology [address], [address] [place] [address] Stuart Smallwood MD [address], [address] [place] [address] Health MaintenanceDue DateLast DoneCommentsHEPATITIS C VIRUS ZTJRBUYPQ11/16/1959 RQANOXW09 1958TSH1958COVID-19 VACCINE (#1)1963TDAP (ADULT) 1977ZOSTER (SHINGLES) VACCINE (1 of 2)1977CERVICAL CANCER SCREENING QYITPCDMHS62/16/1980LIPID JYURHOQPD92/16/1999COLORECTAL CANCER SCREENING DIDPUUNCNY89/16/2004RSV VACCINE (1 - Risk 50-74 years 1-dose series)2008 PNEUMOCOCCAL VACCINE SERIES (2 of 2 - PCV)POTASSIUM 4109/14/2022, 04/01/2022, 02/24/2022INFLUENZA VACCINE (#1)2025 07/05/2020, 07/19/2019, 06/08/2016, Additional history existsDEXA SCAN QGGVRZAYBQ94, 08/12/2022MAMMOGRAM LEFT, 03/22/2024, 01/27/2023, Additional history existsPNEUMOCOCCAL VACCINE SERIES Slcysdkohtkl31/13/2017MAMMOGRAM SCREENING NVYOJPDOXPDhaktrtbdhbs16/24/2022, 01/15/2022, 01/15/2022, Additional history existsHEP B VACCINEAged OutNo longer eligible based on patient's age to complete this topic Medical Devices ImplantedTypeAreaManufacturerDevice IdentifierShelf Expiration DateModel / Serial / LotExpander Tissue 350cc Style 9200 3 Suture Tab Magnetic - [id number] Implanted:Qty: 1 on 04/10/2022 by Sharath Alvarado MD at [facility]: BreastMENTOR [id number] / [id number] / [id number] IdentifierShelf Expiration DateModel / Serial / LotImplant Breast 400cc Gel Texture Shell Barrier Layer P5cm - [id number] Implanted:Qty: 1 on 06/29/2022 by Sharath Alvarado MD at [facility] Explanted:Qty: 1 on 07/15/2023 by Sharath Alvarado MD at [facility]: BreastMENTOR [id number] / [id number] / [id number] Procedures Procedure NamePriorityDate/TimeAssociated DiagnosisCommentsMAMMO DIAGNOSTIC WITH KATHY WEQSCodkuse20/30/2025 3:07 PM EDT Personal history of malignant neoplasm of breast BONE DENSITY AXIAL (HIP, PELVIS, SPINE)Urvcigm6208/14/2024 1:59 PM EST Malignant neoplasm of lower-inner quadrant of right breast of female, estrogen receptor positive Postmenopausal Aromatase inhibitor use CHEM 6 (LYTES, BUN CREA)Kkttlfq3707/15/2023 7:35 AM EST MAMMOGRAPHY (OUTSIDE)01/20/2022from Last 3 Months or Most Recently Relevant to Health Maintenance Results * MAMMO DIAGNOSTIC WITH KATHY LEFT (03/28/2025 3:07 PM EDT)Anatomical Region LateralityModalitybreastLeftMammographySpecimen (Source)Anatomical Location / LateralityCollection Method / VolumeCollection TimeReceived Time03/28/2025 3:08 PM EDT Impressions 03/28/2025 3:08 PM EDT IMPRESSION: No specific mammographic evidence of malignancy. BI-RADS: ??2: Benign Recommendation: ??Routine mammography. Recommendation Laterality: ??Left MQSA Facility: ??[facility], [address] [place] [address], Narrative 03/28/2025 3:08 PM EDT EXAM: MAMMO DIAGNOSTIC WITH KATHY LEFT, 03/28/2025 15:07 PM CLINICAL INDICATIONS AND HISTORY: screening. history of right breast cancer Z85.3:Personal history of malignant neoplasm of breast COMPARISON: MAMMO DIAGNOSTIC WITH KATHY LEFT March 22, 2024, MAMMO DIAGNOSTIC WITH KATHY LEFT January 27, 2023, MAMMO DIAGNOSTIC RIGHT (OUTSIDE IMAGE) January 20, 2022, MAMMO DIAGNOSTIC BILATERAL (OUTSIDE IMAGE) January 15, 2022, MAMMO DIAGNOSTIC BILATERAL (OUTSIDE IMAGE) September 09, 2018 MAMMOGRAM TECHNIQUE: 2-D MLO and CC views were obtained of the left breast. 3-D MLO and CC digital tomosynthesis images were also acquired. Computer aided detection was utilized. MAMMOGRAM FINDINGS: Breast Density: ??The breast is heterogeneously dense, which may obscure small masses. Benign appearing calcifications are noted. There are no suspicious masses, calcifications, or architectural distortions. Procedure Note Teja Irving MD - 03/28/2025 EXAM: MAMMO DIAGNOSTIC WITH KATHY LEFT, 03/28/2025 15:07 PM CLINICAL INDICATIONS AND HISTORY: screening. history of right breastcancer Z85.3:Personal history of malignant neoplasm of breast COMPARISON: MAMMO DIAGNOSTIC WITH KATHY LEFT March 22, 2024, MAMMODIAGNOSTIC WITH KATHY LEFT January 27, 2023, MAMMO DIAGNOSTIC RIGHT (OUTSIDE IMAGE) 2021, MAMMO DIAGNOSTIC BILATERAL (OUTSIDE IMAGE) January 15, 2022, MAMMO DIAGNOSTIC BILATERAL (OUTSIDE IMAGE) September 09, 2018 MAMMOGRAM TECHNIQUE: 2-D MLO and CC views were obtained of the left breast. 3-D MLO and CCdigital tomosynthesis images were also acquired. Computer aided detection was utilized. MAMMOGRAM FINDINGS: Breast Density: The breast is heterogeneously dense, which may obscuresmall masses. Benign appearing calcifications are noted. There are no suspiciousmasses, calcifications, or architectural distortions. IMPRESSION IMPRESSION: No specific mammographic evidence of malignancy. BI-RADS: 2: Benign Recommendation: Routine mammography. Recommendation Laterality: Left MQSA Facility: [facility], [address] [place] [address], Authorizing ProviderResult TypeResult StatusLindskam Moe ELECTRO MECHANICAL TECHNICIAN-CNPBREAST IMAGING Final Result * BONE DENSITY AXIAL (HIP, PELVIS, SPINE) (08/14/2024 1:59 PM EST)Anatomical RegionLateralityModalityhip, Pelvis, L-spineBone DensitySpecimen (Source) Anatomical Location / LateralityCollection Method / VolumeCollection Time Received Time08/14/2024 2:08 PM EST Impressions 08/14/2024 2:11 PM EST IMPRESSION: Based on BMD and WHO criteria diagnosis is consistent with osteopenia. Today's examination is compared to the technically similar prior study dated 08/12/2022 In the interim there has been no significant change. Recommendations: Optimization of calcium and vitamin D supplementation. Follow up bone density testing in 2 years or earlier based on clinical circumstances. * The T-score reflects standard deviations above [...] cannot be determined by BMD measurement alone. FRAX is an available clinical tool developed to evaluate fracture risk in patients using individualized clinical risk factors. The online calculator can be accessed at the following link: https://frax.shef.ac.uk/FRAX/ The physician who interpreted this study is a Certified Clinical Care Services Manager by the International Society of Clinical Densitometry GABINO Roy, CCD. Narrative 08/14/2024 2:11 PM EST EXAM: BONE DENSITY AXIAL (HIP, PELVIS, SPINE) 08/14/2024 13:59 PM TECHNIQUE: DXA scanning using a AugmentigNetlog Advance bone densitometer at the [facility] was performed on 08/14/2024 13:59 PM CLINICAL INDICATIONS: Patient on AI; postmenopausal RELEVANT CLINICAL HISTORY: ??C50.311:Malignant neoplasm of lower-inner quadrant of right breast of female, estrogen receptor positive Z17.0:Malignant neoplasm of lower-inner quadrant of right breast of female, estrogen receptor positive Z78.0:Postmenopausal Z79.811:Aromatase inhibitor use Patient on AI; postmenopausal; COMPARISON: 08/12/2022 FINDINGS: 1. Quality of the examination at the L1-4 lumbar spine: ??Adequate. 2. Quality of the examination at the dual hip: Adequate. BONE MINERAL DENSITY (BMD) CURRENT BONE MINERAL DENSITY (BMD) Region: ? g/cm2 T-Score Lumbar 1-4 Spine: ?1.069 ?-0.9 Left ??Femoral Neck: ??0.924 ?-0.8 Left ??Total Hip: ? 0.932 ?-0.6 Right Femoral Neck: ??0.888 ?-1.1 Right Total Hip: ? 0.912 ?-0.8 COMPARISON WITH PREVIOUS EXAMS ON: 08/12/2022 Body Region: ?Prev BMD ??Current BMD ??Change ? (g/cm2) ?(g/cm2) ? (%) Lumbar 1-4 Spine: ?1.042, ? 1.069, ?2.6% Left ??Total Hip: ? 0.959, ? 0.932, ?-2.8% Right Total Hip: ? 0.924, ? 0.912, ?-1.3% Procedure Note Florence Le MD - 08/14/2024 EXAM: BONE DENSITY AXIAL (HIP, PELVIS, SPINE) 08/14/2024 13:59 PM TECHNIQUE: DXA scanning using a dianboom Advance bone densitometer [facility] was performed on08/14/2024 13:59 PM CLINICAL INDICATIONS: Patient on AI; postmenopausal RELEVANT CLINICAL HISTORY: C50.311:Malignant neoplasm of lower-innerquadrant of right breast of female, estrogen receptor positive Z17.0:Malignant neoplasm of lower-inner quadrant of right breast offemale, estrogen receptor positive Z78.0:Postmenopausal Z79.811:Aromatase inhibitor use Patient on AI; postmenopausal; COMPARISON: 08/12/2022 FINDINGS: 1. Quality of the examination at the L1-4 lumbar spine: Adequate. 2. Quality of the examination at the dual hip: Adequate. BONE MINERAL DENSITY (BMD) CURRENT BONE MINERAL DENSITY (BMD) Region: g/cm2 T-Score Lumbar 1-4 Spine: 1.069 -0.9 Left Femoral Neck: 0.924 -0.8 Left Total Hip: 0.932 -0.6 Right Femoral Neck: 0.888 -1.1 Right Total Hip: 0.912 -0.8 COMPARISON WITH PREVIOUS EXAMS ON: 08/12/2022 Body Region: Prev BMD Current BMD Change (g/cm2) (g/cm2) (%) Lumbar 1-4 Spine: 1.042, 1.069, 2.6% Left Total Hip: 0.959, 0.932, -2.8% Right Total Hip: 0.924, 0.912, -1.3% IMPRESSION IMPRESSION: Based on BMD and WHO criteria diagnosis is consistent with osteopenia. Today's examination is compared to the technically similar prior studydated 08/12/2022 In the interim there has been no significant change. Recommendations: Optimization of calcium and vitamin D supplementation. Follow up bone density testing in 2 years or earlier based on clinical circumstances. * The T-score reflects standard deviations above (+) or below (-) a20-40 year-old, , female, [place] population. At this age, it is assumedthat peak bone mass is reached. * The Z-score reflects standard deviations above (+) or below (-) an age,sex, ethnicity, and weight-matched population. * Osteoporosis is defined as a skeletal disorder characterized bycompromised bone strength predisposing to an increased risk of fracture. Bonestrength reflects the integration of two main features: BMD and bone quality(ZION 2001;285:785-795). Any history of fragility fracture is suggestive of osteoporosis, regardless of the BMD data acquired in this study. * Secondary causes of bone loss should be evaluated if clinicallyindicated as the etiology of low BMD cannot be determined by BMD measurement alone. FRAX is an available clinical tool developed to evaluate fracture riskin patients using individualized clinical risk factors. The online calculatorcan be accessed at the following link: https://frax.shef.ac.uk/FRAX/ The physician who interpreted this study is a Certified Clinical Care Services Manager by the International Society of Clinical DensitometryGABINO Roy, CCD. Authorizing ProviderResult TypeResult StatusSarajarod Land ELECTRO MECHANICAL TECHNICIAN-CNPDEXA ORDERABLES Final Result * CHEM 6 (LYTES, BUN CREA) (07/15/2023 7:35 AM EST)ComponentValueRef RangeTest MethodAnalysis TimePerformed AtPathologist YftjvinmkOCN209 - 25 mg/dL 07/15/2023 8:17 AM [facility] CLINICAL VZOWTDIEUFTwiohy139 135 - 145 mmol/L109/14/2022 8:17 AM [facility] CLINICAL LABORATORYPotassium5.03.5 - 5.0 mmol/L109/14/2022 8:17 AM [facility] CLINICAL LABORATORYComment:Slightly uqhezgvxiZmzdjnlu81345 - 108 mmol/L 07/15/2023 8:17 AM [facility] CLINICAL ZOTEAYBYPJQC07172 - 31 mmol/L109/14/2022 8:17 AM [facility] Creatinine0.810.50 - 1.20 mg/dL07/15/2023 8:17 AM [facility] CLINICAL LABORATORYBun/Crea Vyvcj0854/16/2023 8:17 AM [facility] CLINICAL LABORATORYAnion Zxl413 - 17 mmol/L109/14/2022 8:17 AM [facility] CLINICAL LABORATORYeGFR, CKD-EPI, Cpgtao48>=60 mL/min/1.79k98007/15/2023 8:17 AM [facility] CLINICAL LABORATORYComment:Reported eGFR is based on the CKD-EPI 2020 equation using creatinine, age, and sex.Specimen (Source)Anatomical Location / Laterality Collection Method / VolumeCollection TimeReceived TimeBloodVenipuncture / Ghuuhmn3007/15/2023 7:35 AM EST07/15/2023 7:49 AM EST Narrative Authorizing ProviderResult TypeResult StatusRitu Denys MDCHEMISTRY ORDERABLES Final ResultPerforming OrganizationAddressCity/State/ZIP CodePhone Number U [facility] [address] [place] [address] * MAMMOGRAPHY (OUTSIDE) (01/20/2022)Specimen (Source)Anatomical Location / LateralityCollection Method / VolumeCollection TimeReceived Time01/20/2022 Narrative Authorizing ProviderResult TypeResult StatusOther OtherBREAST IMAGINGFinal Result from Last 3 Months or Most Recently Relevant to Health Maintenance [place] [address] Advance Directives For more information, please contact: [phone] (7:30 AM - 6PM [facility], Wednesday-Wednesday) * Full Code (Latest Code Status on File) Date ActivatedDate InactivatedComments04/10/2022 5:08 AM04/10/2022 2:01 PM Care Teams Team MemberRelationshipSpecialtyStart DateEnd Date Anna Marie Mata MD PCP - GeneralFamily Medicine02/24/22 Mel Sandy MD OncologistMedical Oncology05/13/22 Barbara Land APRN-MANAGER HOME IMPROVEMENT Certified Nurse Practitioner05/13/22
--- OUTSIDE RECORDS SUMMARY | 2025-07-31 11:44 | XMS_ITS | Clinical Summary ---
Author Organization [facility] Address [address] [place] [address] Care Team Providers Care Sales And Catering Coordinator Name Role Phone Anna Marie Mata MD Primary Care Provider [phone] Sarah Ramirez MD Unavailable Unavailable JasonOralia Buchanan MD Unavailable [phone] Wood Suazo MD Unavailable [phone] Allergies Active AllergyReactionsCriticalityNoted DateCommentsSumatriptanMental Status Zdxkmo9305/30/2013 Medications MedicationSigDispense QuantityRefillsLast FilledStart DateEnd DateStatus magnesium oxide 400 mg tablet Take 400 mg by mouth once daily.Active levothyroxine (SYNTHROID) 50 mcg tablet Take 1 tablet by mouth daily before breakfast. 90 tablet ctive Estradiol (ESTRACE) 0.5 mg tablet Take 0.5 mg by mouth once daily.Active esomeprazole (NEXIUM) 40 mg capsule Take 1 capsule by mouth once daily.Active Additional Information Patient taking differently: 20 mgORAL DAILY,Only 20 taking 20 mg., Reason: Other, Reported on 04/11/2021 albuterol (PROVENTIL) 2.5 mg /3 mL (0.083 %) nebulizer solution inhale 1 (ONE) vial via NEBULIZER EVERY 4 HOURS NEEDED for aoqin121 Active lqjoccbxeha-cpankgloz-oarwfnbq (TRELEGY ELLIPTA) 200-62.5-25 mcg dsdv Indications:Moderate persistent asthma with acute exacerbation (HCC)Inhale 1 Inhalation as instructed once daily. 1 Inhaler 1101/18/2021Active albuterol HFA (PROAIR HFA) 90 mcg/actuation inhaler Inhale 2 Puffs as instructed every 6 hours as needed. 8.5 g 1101Active furosemide (LASIX) 20 mg tablet Take 20 mg by mouth once daily.Active Active Problems ProblemNoted DateDiagnosed DateDizziness and ljswxzosg16/26/2020Right ear pain 06/24/2020Moderate persistent asthma without qwhrgqucvaxw42/03/2017Excessive daytime japteognsh89/03/2017Recurrent lmvpqnitl78/03/2017Unspecified vojyzgsrmyntyh30/02/2014Vaginal erosion due to surgical mesh05/30/2013 Immunizations ImmunizationAdministration DatesNext Dueinfluenza (IIV3) vaccine, age 6 mo - 64 yr, trivalent (AFLURIA, FLULAVAL, FLUVIRIN, FLUZONE)05/30/2015,05/30/2014 influenza (IIV4) vaccine, age 6 mo - 64 yr, quadrivalent (AFLURIA, FLULAVAL, FLUZONE)07/05/2020,06/08/2016influenza vaccine, unspecified formulation 05/30/2013pneumococcal polysaccharide (PPV23) vaccine, 23 valent (PNEUMOVAX 23) 10/12/2016 Family History Medical HistoryRelationCommentsDiabetesBrother 1DiabetesBrother 2DiabetesBrother 3DiabetesFatherHeart FailureFatherHypertensionFatherCervical CancerMaternal Aunt HyperlipidemiaMotherHypertensionMotherThyroidSister 1thyroidectomyColon Cancer Sister 2DiabetesSister 3DiabetesSonStrokeSonRelationStatusCommentsBrother 1 Brother 2Brother 3FatherDeceasedMaternal AuntMotherDeceasedSister 1Sister 2 Sister 3Son Social History Tobacco UseTypesPacks/DayYears UsedDateSmoking Tobacco: NeverSmokeless Tobacco: NeverAlcohol UseStandard Drinks/WeekCommentsYes0 (1 standard drink = 0.6 oz pure alcohol)socialPHQ-2AnswerDate RecordedPHQ-2 xgrbd7354Area Deprivation IndexAnswerDate RecordedNational Score (1-100), lower number is lower risk65 01/21/2024State Score (1-10), lower number is lower spqv803ata from: https://www.neighborhoodatlas.[facility].edu/. Last address used for [address] [facility] 4CommentsNoSex and Gender InformationValueDate RecordedSex Assigned at LwanxPgrlft40/30/2020 7:23 AM EDT Legal TvaEhtqty10/02/2012 10:02 AM ESTGender JzwlgxmyFsbahf18/30/2020 7:23 AM EDTSexual UrlkxltegliXxvlcehk36/30/2020 7:23 AM EDT Last Filed Vital Signs Vital SignReadingTime TakenCommentsBlood Utgwqfeq433/6506 12:20 PM EDT Qugcr401502/21/2021 12:20 PM ZSITiwxvzrozdw91.9 ??C (98.4 ??F)02/21/2021 12:20 PM EDTRespiratory Tkio850509/04/2019 7:46 AM ESTOxygen Omfhljasbq31%02/21/2021 12:20 PM EDTInhaled Oxygen Concentration--Qjgvfy32.5 kg (140 lb)01/21/2024 8:35 AM EDT Iznswa517 cm (5' 3 )01/21/2024 8:35 AM EDTBody Mass Index24.805 8:35 AM EDT Plan of Treatment Health MaintenanceDue DateLast DoneCommentsAnnual PCP Team Chronic Disease Visit 1976Anxiety Gguyvpotq22/16/1977Depression Cksbyzitp53/16/1977Hepatitis C Vnjhznfif58/16/1977DTaP,Tdap,Td Vaccine (1 - Tdap)1977CT Colonography 2003Cologuard (FIT-DNA)09/14/20033190Lfdcndgtgvb87/16/2004Colorectal Cancer Lciwrkvxp65/16/2004Fecal Occult Blood09/14/20031422Ehetyeovcjdxd47/16/2004Shingrix Vaccine (1 of 2)2008Pneumococcal Vaccine: 50+ (2 of 2 - PCV)10/12/2017 10/12/2016RSV Vaccine (1 - Risk 60-74 years 1-dose series)2018Medicare Annual Wellness Visit08/30/2023one Density Mwkvobxoc40/ Mammogram Irjrkrvit14, 01/27/2023, 02/18/2022, Additional history existsAdvance Directive Havoenthkd25/01/2025Covid-19 Vaccine ( season)2025Influenza Vaccine (#1)/01/2020, 06/08/2016, 05/30/2015, Additional history existsLipid Qxggulpnd50, 08/16/2017Diabetes Fcnrxujwh36/, 04/01/2022, 02/24/2022, Additional history exists Procedures Procedure NamePriorityDate/TimeAssociated DiagnosisCommentsLIPID PANEL, FASTING Hhjdasg6702/21/2021 1:22 PM EDT Mixed hyperlipidemia BASIC METABOLIC OVZMHAlsrlrz19/11/2013 1:01 PM EST Pre-op testing from Last 3 Months or Most Recently Relevant to Health Maintenance Results * (ABNORMAL) LIPID PANEL BASIC (02/21/2021 1:22 PM EDT)ComponentValueRef Range Test MethodAnalysis TimePerformed AtPathologist SignatureCholesterol, Guyee586 (H)<200 mg/dL02/21/2021 8:13 PM EDTCleveland Clinic LaboratoriesComment: <200 mg/dL, Desirable 200-239 mg/dL, Borderline high >239 mg/dL, High Khtnfibowcox29<150 mg/dL02/21/2021 8:13 PM EDTCleveland Clinic Laboratories Comment: <150 mg/dL, Normal 150-199 mg/dL, Borderline high 200-499 mg/dL, High >499 mg/dL, Very high HDL Qqzpxljwawa10>39 mg/dL02/21/2021 8:13 PM EDTCleveland Clinic Laboratories Comment: 40-59 mg/dL, Acceptable >59 mg/dL, High: Negative risk factor for coronary heart disease <40 mg/dL, Low: Positive risk factor for coronary heart disease LDL Cholesterol, Semywyzulm386(H)<100 mg/dL02/21/2021 8:13 PM EDTCselect [facility] Clinic LaboratoriesComment: <100 mg/dL, Optimal 100-129 mg/dL, Near optimal/above optimal 130-159 mg/dL, Borderline high 160-189 mg/dL, High >189 mg/dL, Very high Secondary prevention optimal LDL Cholesterol levels are recommended to be < 70 mg/dL Non HDL Sasolybrhzy744(H)<130 mg/dL02/21/2021 8:13 PM EDTCacmc healthcare [facility]igh[facility] Clinic LaboratoriesComment: <130 mg/dL, Optimal 130-159 mg/dL, Near optimal/above optimal 160-189 mg/dL, Borderline high 190-219 mg/dL, High >219 mg/dL, Very high Secondary prevention optimal non HDL Cholesterol levels are recommended to be < 100 mg/dL Fasting Nell80asv08/25/2021 1:25 PM EDTCacmc healthcare system glenbeighand Clinic LaboratoriesVLDL Enocaiyneal42<30 mg/dL02/21/2021 8:13 PM EDTCacmc healthcare [facility]igh[facility] Clinic LaboratoriesTC:HDL Ratio2.78<5.10002/21/2021 8:13 PM EDTCacmc healthcare [facility]igh[facility] Clinic LaboratoriesLDL:HDL Ratio 1.65<2.54002/21/2021 8:13 PM EDTCselect [facility] Clinic LaboratoriesComment: Reference: 1. National Cholesterol Education Program ATP III Guideline At-A-Glance Quick Desk Reference: National Heart, Lung, and Blood [place]. National Institutes of Health. 2001: NIH Publication No. 01-3305. 2. An International Atherosclerosis Society position paper: global recommendations for the management of dyslipidemia: executive summary, Atherosclerosis. 2014: 232(2):410-413. Specimen (Source)Anatomical Location / LateralityCollection Method / Volume Collection TimeReceived TimeBloodBLOOD SPECIMEN / Ptdcoxg9502/21/2021 1:22 PM EDT 02/21/2021 1:24 PM EDT Narrative Authorizing ProviderResult TypeResult StatusPbonnie Suazo MDLABORATORYFinal ResultPerforming OrganizationAddressCity/State/ZIP CodePhone Number [facility] [address] [place] [address] [facility] [address] [place] [address] * (ABNORMAL) BASIC METABOLIC PNL (08/09/2013 1:01 PM EST)ComponentValueRef Range Test MethodAnalysis TimePerformed AtPathologist PqnmljtqsIzkdcqw990(H)65 - 100 mg/dLWVUMEDICINE [facility] ARUJIHBJCNKDM781 - 25 mg/dLWVUMEDICINE HARRISON [facility] LABORATORYCreatinine0.69(L)0.70 - 1.40 mg/dLWVUMEDICINE HARRISON [facility] Huwgcb979506 - 148 mmol/LCCR[facility] LABORATORYPotassium3.3(L)3.5 - 5.0 mmol/LCCRYST[facility] JPPWHQTBUTArydhqax2207 - 110 mmol/LCCR[facility] NQBTQEOMUSSD05656 - 32 mmol/LCCR[facility] LABORATORYAnion Xmd461 - 15 mmol/LCCR[facility] KUYDVOBEYUGflqeij94.28.5 - 10.5 mg/dL [facility] LABORATORYeGFR->60WV[facility] LABORATORYeGFR-All Other Races>60.[facility] LABORATORYComment: eGFR (Estimated GFR) Units of measure: mL/min/1.73 meters squared eGFR is derived from the reexpressed MDRD Study equation using the following parameters: serum creatinine, age, gender and race. The creatinine assay has been calibrated to be traceable to IDMS. An eGFR <60 mL/min/1.73m2 for >3 months is consistent with chronic kidney disease. Refer to KDOQI guidelines for clinical interpretation. Specimen (Source)Anatomical Location / LateralityCollection Method / Volume Collection TimeReceived TimeBlood specimen (specimen)BLOOD SPECIMEN / Unknown 08/09/2013 1:01 PM EST08/09/2013 1:03 PM EST Narrative Authorizing ProviderResult TypeResult StatusMictamia Garza APRN.CNPLABORATORY Final ResultPerforming OrganizationAddressCity/State/ZIP CodePhone Number [facility] [address] [place] [address] from Last 3 Months or Most Recently Relevant to Health Maintenance Insurance [address] [place] [address] [place] [address] Care Teams Team MemberRelationshipSpecialtyStart DateEnd Anna Marie Mata MD [address] [phone] PCP - GeneralFamily Jriggywi10/1/13 Sarah Ramirez MD [address] [place] [address] OfzizofdfLdqqxatxh46/15/17 Jason-Oralia Parikh MD [address] [phone] Primary Staff PhysicianCardiology11/15/18 Wood Suazo MD [address] [place] [address] Primary Staff PhysicianInternal Medicine03/06/21
--- OUTSIDE RECORDS SUMMARY | 2025-07-31 11:49 | XMS_ITS | CCD ---
Author Organization [facility] [place] [facility] Care Team Providers Care Computer Laboratory Technician Name Role Phone DR TUCKER HAYWOOD Attending Unavailable ADOLFO, DR TUCKER Greenwood Primary Care Unavailable ONEYDA, DR ANTONIO Sorenson Consulting Unavailable HAYWOOD, DR TUCKER Greenwood Admitting Unavailable HAYWOOD, DR TUCKER Greenwood Consulting Unavailable HAYWOOD, DR TUCKER Greenwood Attending Unavailable HAYWOOD, DR TUCKER Greenwood Primary Care Unavailable ONEYDA, DR ANTONIO Sorenson Consulting Unavailable HAYWOOD, DR TUCKER Greenwood Admitting Unavailable HAYWOOD, DR TUCKER Greenwood Consulting Unavailable ADOLFO, DR TUCKER Greenwood Primary Care Unavailable SHAIKH RILEY Attending Unavailable SHAIKH RILEY Consulting Unavailable SHAIKH RILEY Admitting Unavailable Unavailable Primary Care Provider UnavailTucker Juárez MD Primary Care Provider [phone] Mel Giron MD Unavailable Emery MACHADO, Arnaldo L Unavailable [phone] Tucker Haywood MD Primary Care Provider [phone] Mel Giron MD Unavailable Emery MACHADO, Arnaldo L Unavailable [phone] Tucker Haywood Unavailable Tucker Haywood MD Primary Care Provider Mel Giron MD Unavailable Rucody MACHADO, Arnaldo L Unavailable [phone] Sola Samayoa Unavailable MD Tucker Haywood Primary Care Provider LEI Samayoa Attending Provider MD Tucker Haywood Primary Care Provider Danita, BUSINESS DEVELOPMENT ASSISTANT Sola Attending Provider Danita, Sola Admitting Unavailable Danita, Sola Attending Unavailable Tucker Haywood Primary Care Unavailable Danita, Sola Admitting Unavailable Danita, Sola Attending Unavailable Tucker Haywood Primary Care Unavailable Tucker Haywood MD Primary Care Provider James SIERRA, Sarah Unavailable Unavailable Manan SIERRA, Chete Unavailable Lakeisha SIERRA, Wood Unavailable ANDREINA ONEAL Attending Unavailable TUCKER HAYWOOD Primary Care Unavailable Du SIERRA, Mel P Unavailable Emery BUSINESS DEVELOPMENT ASSISTANT-BUILD AND RELEASE MANAGER, Arnaldo L Unavailable TUCKER HAYWOOD Primary Care Physician Lizzeth Romero Unavailable Unavailable Brown, Ba A Admitting Unavailable Brown, Ba A Attending Unavailable Brown, Ba A Referring Unavailable Brown, Ba A Referring Unavailable Brown, Ba A Admitting Unavailable Brown, Ba A Attending Unavailable Brown, Ba A Referring Unavailable Brown, Ba A Admitting Unavailable Brown, Ba A Attending Unavailable Brown, Ba A Admitting Unavailable Brown, Ba A Attending Unavailable Brown, Ba A Referring Unavailable Tucker Haywood MD Primary Care Provider Brown, DO Ba A Admitting Unavailable Brown, DO Ba A Attending Unavailable Brown, DO Ba A Referring Unavailable Tucker Haywood MD Primary Care Provider Tucker Haywood MD Primary Care Provider [phone] Brown, Ba A Attending Unavailable Brown, Ba A Referring Unavailable Brown, Ba A Admitting Unavailable Brown, Ba A Attending Unavailable Brown, Ba A Referring Unavailable Brown, Ba A Admitting Unavailable Brown, Ba A Attending Unavailable Brown, Ba A Referring Unavailable Brown, Ba A Admitting Unavailable Brown, DO Ba A Referring Unavailable Brown, DO Ba A Admitting Unavailable Brown, DO Ba A Attending Unavailable Brown, DO Ba A Referring Unavailable Brown, DO Ba A Admitting Unavailable Brown, DO Ba A Attending Unavailable Brown, DO Ba A Admitting Unavailable Brown, DO Ba A Attending Unavailable Brown, DO Ba A Referring Unavailable Tucker Haywood MD Primary Care Provider TUCKER HAYWOOD Primary Care Unavailable VALDES, MEL P Referring Unavailable RUCODY, ARNALDO L Attending Unavailable ADOLFO, TUCKER Primary Care Unavailable PRAKASH SANTIAGO Referring Unavailable POVOSKOscar, STUART P Attending Unavailable HAYWOOD, TUCKER Primary Care Unavailable SANTIAGOPRAKASH Referring Unavailable POVOSKI, STUART P Attending Unavailable ADOLFO, TUCKER Primary Care Unavailable HAYWOOD, TUCKER Referring Unavailable VALDES, MEL P Attending Unavailable RUHA, ARNALDO L Attending Unavailable ADOLFO, TUCKER Primary Care Unavailable HAYWOOD, TUCKER Referring Unavailable BROWN, BA A Referring Unavailable BROWN, BA A Attending Unavailable BROWN, BA A Referring Unavailable BROWN, AB A Referring Unavailable BROWN, BA A Attending Unavailable BROWN, BA A Referring Unavailable BROWN, BA A Attending Unavailable BROWN, BA A Referring Unavailable PEREYRA, NICOLE Attending Unavailable BROWN, BA A Referring Unavailable BROWN, BA A Referring Unavailable BROWN, BA A Attending Unavailable BROWN, BA A Referring Unavailable PEREYRA, NICOLE Attending Unavailable BROWN, BA A Referring Unavailable PEREYRA, NICOLE Attending Unavailable BROWN, BA A Referring Unavailable PEREYRA, NICOLE Attending Unavailable BROWN, BA A Referring Unavailable PEREYRA, NICOLE Attending Unavailable BROWN, BA A Referring Unavailable BROWN, BA A Referring Unavailable BROWN, BA A Attending Unavailable BROWN, BA A Attending Unavailable BROWN, BA A Referring Unavailable BROWN, BA A Attending Unavailable BROWN, BA A Attending Unavailable BROWN, BA A Referring Unavailable BROWN, BA A Referring Unavailable BROWN, BA A Attending Unavailable BROWN, BA A Attending Unavailable Tucker Haywood MD Primary Care Provider [phone] Tucker Haywood MD Attending Provider [phone] Tucker Haywood MD Primary Care Provider [phone] Tucker Haywood MD Primary Care Provider [phone] Tucker Haywood MD Primary Care Provider [phone] Tucker Haywood MD Attending Provider [phone] Sola Samayoa APRN Attending Provider Allergies Allergy ClassificationReported Allergen(s)Allergy TypeDate of OnsetReaction(s) Facility (12 sources)Plasmin; Translations: [Imitrex]Drug Xxobvza69-05-0504sizjtqsb [facility] Repository (20 sources)SUMAtriptan; Translations: [SUMATRIPTAN]Drug Wpytdib27-27-6128Trxwwk Status Change, Impaired cognition (finding)[facility] (1 source)SUMAtriptanDrug [facility]dvahas87[facility]71[facility]2549[facility] Medications Current Medications MedicationDrug Class(es)DatesSig (Normalized)Sig (Original)30 ACTUAT fluticasone furoate 0.2 MG/ACTUAT / umeclidinium 0.0625 MG/ACTUAT / vilanterol 0.025 MG/AC TUAT Dry Powder Inhaler [Trelegy] (5 sources)Start: 22-78-1402zyvr 1 puff(s) by inhalation once dailyTrelegy Ellipta 200-62.5-25 MCG/ACT 1 puff Inhalation Once a day for 90 days Oct, Activeacetaminophen 500 mg oral tablet (20 sources)Start: 65-41-3066hnna 1 tablet by mouth every four hours acetaminophen (Tylenol) 500 MG tablet TAKE 1 TABLET BY MOUTH EVERY 4 HOURS 02/28/2025 ActiveStart: 05-47-2697dyoz 1 tablet by mouth every four hours as needed for painacetaminophen 500 mg Tab 500 mg = 1 tab(s), Oral, q4hr, PRN as needed for pain, # 40 tab(s), Refills(s) 0, Pharmacy: [id number], 162, cm, 04/25/24 13:55:00 EDT, Height/Length Dosing, 63.9, kg, 04/25/24 13:55:00 EDT, Weight Dosing Start Date: 05/10/24 Status: OrderedStart: 06-29-2022 take 1 tablet by mouth every six hoursacetaminophen 650 MG Tab CR Take 1 tablet by mouth every 6 hours for 2 days. 8 tablet 06/29/2022 ActiveStart: 04-11-2022 End: 02-14-6376slfy 3 tablets by mouth every eight hoursacetaminophen 325 MG tablet Take 3 tablets by mouth every 8 hours for 5 days. 45 tablet 0 04/11/2022 ActiveStart: 04-10-2022 End: 66-18-7748weck 1 tablet by mouth every eight cpiyh295 mg, Oral, EVERY 8 HOURS NON-STANDARD, First dose on Wed04/10/22 at 1600, Until Discontinued Admi nister each dose four hours after dose of ibuprofen. Post-op/Post-[id number] 200 actuat albuterol 0.09 mg/actuat metered dose inhaler (20 sources)beta2-Adrenergic AgonistStart: 75-35-2111rcug 1 puff(s) by inhalation every four to six hours as needed for wheezingAlbuterol Sulfate 90 mcg/actuation HFA aerosol inhaler Active 2 PUFF INHALATION EVERY 4-6 HOURS as n eeded for shortness of breath or wheezing 8.5 1 June 04, 2025 11:00pm Complies with drug therapyStart: 67-26-3860Hkasebldf (Eqv-ProAir HFA) Refill(s) 0 Start Date: 12/07/24 Status: Ordered Repeat number: 1Start: 84-71-0172breb 3 mL by inhalation four times daily as neededAlbuterol Sulfate 2.5 mg /3 mL (0.083 %) solution for nebulization Active 2.5 MG INHALATION October 18, 2023 12:00am FreeTextSi ml Inhalation Four times a day as needed; Note: Source Status: Continue; Provider: Danita Waters Complies with drug therapyStart: 45-45-3201rjhs 2 puff(s) by inhalation every four hours as neededAlbuterol Sulfate HFA 108 (90 Base) MCG/ACT 2 puff Inhalation every 4 hrs prn for 90 days Sep, ActiveStart: 21-02-4855oncl 2 puff(s) by inhalation every four hours as neededAlbuterol Sulfate HFA 108 (90 Base) MCG/ACT 2 puff Inhalation every 4 hrs prn for 90 days Sep, ActiveStart: 26-11-5201Cdovvyvxo Active 90 MCG INHALATION As Directed July 28, 2021 12:00amStart: 72-38-1864gxrz 2 puff(s) by inhalation every six hours as neededalbuterol HFA (PROAIR HFA) 90 mcg/actuation inhaler Inhale 2 Puffs as instructed every 6 hours as needed. 8.5 g 11 02/14/2021 ActiveStart: 62-33-1490bdya 1 dose by inhalation every four hours as needed for coughalbuterol (PROVENTIL) 2.5 mg /3 mL (0.083 %) nebulizer solution inhale 1 (ONE) vial via NEBULIZER EVERY 4 HOURS NEEDED for cough 0 08/12/2017 ActiveStart: 04-70-9712Rahetfuka Sulfate (2.5 MG/3ML) 0.083% 3 ml Inhalation Four times a day as needed Nov, ActiveAlbuterol Sulfate 108 (90 Base) MCG/ACT Aerosol Powder, breath activated Inhale. Prn Activeamoxicillin 875 mg / clavulanate 125 mg oral tablet (1 source)Penicillin-class AntibacterialStart: 50-09-3455wgdd 1 tablet by mouth every twelve hoursAmoxicillin-Pot Clavulanate 875-125 MG 1 tablet Orally every 12 hrs for 10 day(s) May, Activeanastrozole 1 mg oral tablet (11 sources)Aromatase InhibitorStart: 08-12-2022 End: 64-79-7451mwaz 1 tablet by mouth once dailyanastrozole 1 MG tablet Indications: Malignant neoplasm of lower-inner quadrant of right breast of f diana, estrogen receptor positive Take 1 tablet by mouth daily. May take without regard to food. Dx: Breast Cancer 90 tablet 3 10/14/2022 10/09/2023 Active Ascorbic Acid (16 sources)Vitamin CStart: 24-95-2024Mbnzubz C Refills(s) 0 Start Date: 12/07/24 Status: Ordered Repeat number: 1take 1 tablet by mouth once dailyAscorbic Acid (vitamin C) 1000 MG tablet Take 1,000 mg by mouth Daily Activeashwagandha (4 sources)Start: 17-95-2442knjxwvteeyf Refill(s) 0 Start Date: 12/07/24 Status: Ordered Repeat number: 1aspirin 81 mg delayed release oral tablet (20 sources)Platelet Aggregation Inhibitor, Nonsteroidal Anti-inflammatory Drug Start: 12-20-2024 End: 63-21-8324bwpqyob 81 MG EC tablet Take 81 mg by mouth 12/20/2024 ActiveB- Complex With Vitamin C capsule (4 sources)Start: 50-10-1030dqkx 1 capsule by mouth once dailyB-Complex With Vitamin C capsule Active 1 CAP PO Daily December 18, 2024 11:00pm Complies with drug therapyStart: 11-28-4866uzpi 1 capsule by mouth once dailyB-Complex With Vitamin C capsule Active 1 CAP PO Daily December 19, 2024 12:00am Complies with drug therapyStart: 74-01-6781fjcb 1 capsule by mouth once dailyB-Complex With Vitamin C capsule Active 1 CAP PO Daily December 19, 2024 12:44yo417 actuat budesonide 0.16 mg/actuat / formoterol fumarate 0.0048 mg/actuat / glycopyrrolate 0.009 mg/actuat metered dose inhaler (20 sources)Corticosteroid, beta2-Adrenergic AgonistStart: 20-91-4961ivyj 2 puff(s) by mouth twice dailyBreztri Aerosphere 160-9-4.8 MCG/ACT Aerosol INHALE 2 PUFFS BY MOUTH TWICE DAILY 0 12/29/2021 Activecalcium ascorbate 500 mg oral tablet (4 sources)Start: 35-69-2383licc 1 tablet by mouth once dailyAscorbate Calcium (Vitamin C) 500 mg tablet Active 500 MG PO Daily December 18, 2024 11:00pm Complies with drug therapyCalcium Carbonate / Vitamin D (19 sources)Calcium Carbonate-Vitamin D (CALTRATE 600+D PO) Take by mouth. ActiveCalcium Carbonate-Vitamin D (CALTRATE 600+D PO) Take by mouth. 0 Active celecoxib 100 mg oral capsule (20 sources)Nonsteroidal Anti-inflammatory DrugStart: 49-90-1482AyerCWTX 100 mg Cap 100 mg = 1 cap(s), Oral, BID, start after finishing ketorolac, # 60 cap(s), Refills(s) 0, Pharmacy: [facility], 161, cm, 02/13/25 12:19:00 EDT, Height/Length Dosing, 65.2, kg, 02/13/25 12:19:00 EDT, Weight Dosing Start Date: 02/28/25 Status: Ordered Quantity: 60.0 Unit: cap(s) Repeat number: 1Start: 29-96-8418lgbk 1 capsule by mouth in the morningcelecoxib (CeleBREX) 200 MG capsule Indications: Left knee pain, unspecified chronicity Take 1 capsule (200 mg) by mouth in the morning and 1 capsule (200 mg) before bedtime. 180 capsule 01/01/2025 ActiveStart: 86-36-5406skrj 1 capsule by mouth twice dailyCeleBREX 100 mg Cap 100 mg = 1 cap(s), Oral, BID, # 60 cap(s), Refills(s) 0, Pharmacy: [facility], 161.4, cm, 12/07/24 12:09:00 EDT, Height/Length Dosing, 65.8, kg, 12/07/24 12:09:00 EDT, Weight Dosing Start Date: 12/20/24 Status: Ordered Quantity: 60.0 Unit: cap(s) Repeat number: 1Start: 05-10-2024 take 1 capsule by mouth twice daily as needed for painCeleBREX 100 mg Cap 100 mg = 1 cap(s), Oral, BID, PRN for pain, start after finishing ketorolac, # 60 cap(s), Refills(s) 0, Pharmacy: [facility], 162, cm, 04/25/24 13:55:00 EDT, Height/Length Dosing, 63.9, kg, 04/25/24 13:55:00 EDT, Weight Dosing Start Date: 05/10/24 Status: Orderedtake 1 capsule by mouth in the morning celecoxib (CeleBREX) 200 MG capsule Take 200 mg by mouth in the morning and 200 mg before bedtime. Activecephalexin 500 mg oral capsule (17 sources)Cephalosporin AntibacterialStart: 02-28-2025 End: 61-13-2162sfze 1 capsule by mouth every eight hoursKeflex 500 mg Cap 500 mg = 1 cap(s), Oral, q8hr, X 7 day(s), # 21 cap(s), Refills(s) 0, Pharmacy: [facility], 161, cm, 02/13/25 12:19:00 EDT, Height/Length Dosing, 65.2, kg, 02/13/25 12:19:00 EDT, Weight Dosing Start Date: 02/28/25 Stop Date: 03/07/25 Status: Ordered Quantity: 21.0 Unit: cap(s) Repeat number: 1Start: 01-16-2025 End: 04-68-4647bggjutkqbm (Keflex) 500 MG capsule Indications: S/P reverse total shoulder arthroplasty, right Take4 pills 30-60 mins before dental appointment with food 4 capsule 3 01/16/2025 03/15/2025 Discontinued (Therapy completed) Start: 05-10-2024 End: 57-21-0008ibfo 1 capsule by mouth every eight hoursKeflex 500 mg Cap 500 mg = 1 cap(s), Oral, q8hr, X 7 day(s), # 21 cap(s), Refills(s) 0, Pharmacy: [facility], 162, cm, 04/25/24 13:55:00 EDT, Height/Length Dosing, 63.9, kg, 04/25/24 13:55:00 EDT, Weight Dosing Start Date: 05/10/24 Stop Date: 05/17/24 Status: OrderedStart: 04-11-2022 End: 80-91-1936usff 2 capsules by mouth twice dailycephALEXin 500 MG capsule Take 2 capsules by mouth 2 times daily for 14 days. 56 capsule 1 04/11/2022 04/25/2022 Activecetirizine hydrochloride 10 mg oral tablet (20 sources)Histamine-1 Receptor AntagonistStart: 96-56-4857jdzu 1 tablet by mouth once daily in the morningCetirizine 10 mg tablet Active 1 TAB PO Daily October 18, 2023 12:00am FreeTextSi tablet Orally Once a day; Note: Source Status: ContinueTake in the morning; Provider: Danita Waters Complies with drug therapycyclobenzaprine hydrochloride 10 mg oral tablet (11 sources)Muscle RelaxantStart: 04-16-2022 End: 50-71-2751xqgx 1 tablet by mouth three times daily as needed for muscle spasmscyclobenzaprine 10 MG tablet Indications: Malignant neoplasm of lower- inner quadrant of right breast of female, estrogen receptor positive Take 1 tablet by mouth 3 times daily as needed for Muscle spasms for up to 5 days. 15 tablet 1 04/16/2022 ActiveStart: 04-10-2022 End: 90-42-3702zrdk 1 tablet by mouth every six hours as neededcyclobenzaprine 10 MG tablet Take 1 tablet by mouth every 6 hours as needed for Other (Muscle cramping or pain, use prior to opioids.) for up to 5 days. 20 tablet 0 04/11/2022 04/16/2022 Activedocusate sodium 100 mg oral capsule (8 sources)Start: 02-28-2025 End: 09-72-8922rlgr 1 capsule by mouth twice daily as needed for constipation docusate sodium (Colace) 100 MG capsule TAKE 1 CAPSULE BY MOUTH TWICE DAILY NEEDED FOR CONSTIPATION 02/28/2025 03/15/2025 Discontinued (Therapy completed) Start: 30-97-4371ivzp 1 capsule by mouth twice daily as needed for constipation Colace 100 mg Cap 100 mg = 1 cap(s), Oral, BID, PRN for constipation, # 20 cap(s), Refills(s) 0, Pharmacy: [facility], 161.4, cm, 12/07/24 12:09:00 EDT, Height/Length Dosing, 65.8, kg, 12/07/24 12:09:00 EDT, Weight Dosing Start Date: 12/20/24 Status: Ordered Quantity: 20.0 Unit: cap(s) Repeat number: 1Start: 89-47-0708wnck 1 capsule by mouth twice daily as needed for constipationColace 100 mg Cap 100 mg = 1 cap(s), Oral, BID, PRN for constipation, # 20 cap(s), Refills(s) 0, Pharmacy: [facility], 162, cm, 04/25/24 13:55:00 EDT, Height/Length Dosing, 63.9, kg, 04/25/24 13:55:00 EDT, Weight Dosing Start Date: 05/10/24 Status: OrderedStart: 04-11-2022 End: 22-81-2106kogh 1 capsule by mouth twice dailydocusate 100 MG capsule Take 1 capsule by mouth 2 times daily for 7 days. 14 capsule 0 04/11/2022 04/18/2022 Activeergocalciferol 0.05 mg oral capsule (4 sources)Provitamin D2 CompoundStart: 51-61-8020jzzq 1 capsule by mouth once dailyErgocalciferol (Vitamin D2) 50 mcg (2,000 unit) capsule Active 50 MCG PO Daily December 17, 2024 11:00pm Complies with drug therapyesomeprazole 20 mg delayed release oral capsule (20 sources)Proton Pump InhibitorStart: 76-97-1480yugg 1 capsule by mouth once dailyEsomeprazole Magnesium (Nexium) 20 mg capsule,delayed release(DR/EC) Active 20 MG PO Daily 2023 12:00am Complies with drug therapyStart: 93-32-6109rbxp 1 capsule by mouth once dailyesomeprazole (NEXIUM) 40 mg capsule Take 1 capsule by mouth once daily. 0 06/24/2017 Activeexemestane 25 mg oral tablet (5 sources)Aromatase InhibitorStart: 48-39-9620cfwt 1 tablet by mouth once daily at mealtimeexemestane 25 MG tablet Indications: Malignant neoplasm of lower- inner quadrant of right breast of female, estrogen receptor positive Take 1 tablet by mouth daily. Take with food. Dx C50.919 30 tablet 1 05/17/2023 Active famotidine 20 mg oral tablet (20 sources)Histamine-2 Receptor AntagonistStart: 72-88-4769fbbp 1 tablet by mouth once daily at bedtimeFamotidine 20 mg tablet Active 20 MG PO Daily at bedtime 90 90 3 July 10, 2025 9:22am Gastroesophageal reflux disease Gastro-esophageal reflux disease without esophagitis Complies with drug therapy Start: 10-19-2023 End: 91-86-9108zrwh 1 tablet by mouth once daily at bedtimeFamotidine 10 mg tablet Discontinued 10 MG PO Daily at bedtime 90 90 3 September 15, 2024 10:39am July 10, 2025 9:22amtake 1 tablet by mouth at bedtimefamotidine (Pepcid) 20 MG tablet Take 20 mg by mouth at bedtime ActiveFluticasone Propion-Salmeterol (1 source)Corticosteroid, beta2-Adrenergic AgonistStart: 91-61-3610Gwuoxihmjkd Propion-Salmeterol (Advair Hfa) 115-21 mcg/actuation HFA aerosol inhaler Active 2 INH INHALATION Every 12 hours 12 30 5 July 10, 2025 12:00am Allergic rhinitis Other seasonal allergic rhinitis Rinse mouth/gargle after each use to help prevent thrush. Complies with drug hgjdlxo02 actuat fluticasone furoate 0.1 mg/actuat / vilanterol 0.025 mg/actuat dry powder inhaler (2 sources)Corticosteroid, beta2-Adrenergic AgonistStart: 99-16-5643Lycdbauguie Furoate-Vilanterol (Breo Ellipta) 100-25 mcg/dose blister with device Active 1 INH INHALATION daily 60 30 5 April 25, 2025 11:00pm Reactive airway disease Mild intermittent asthma, uncomplicated Rinse mouth/gargle after each use to help prevent thrush. Complies with drug fcltbchgflpjlowfbz-owuxwxmon-vjwirqph (TRELEGY ELLIPTA) 200-62.5-25 mcg dsdv (2 sources)Start: 12-87-5648dzovvhnneqe-umeclidin-vilanter (TRELEGY ELLIPTA) 200-62.5-25 mcg dsdv Indications: Moderate persistent asthma with acute exacerbation Inhale 1 Inhalation as instructed once daily. 1 Inhaler 11 021 Activeibuprofen 400 mg oral tablet (20 sources)Nonsteroidal Anti-inflammatory DrugStart: 29-05-2420lrxw 1 tablet by mouth every six hoursibuprofen 400 MG tablet Take 1 tablet by mouth every 6 hours for 2 days. 8 tablet 06/29/2022 ActiveStart: 04-11-2022 End: 92-23-7534erfu 1 tablet by mouth every eight hoursibuprofen 600 MG tablet Take 1 tablet by mouth every 8 hours for 5 days. 15 tablet 0 04/11/2022 Active Start: 04-10-2022 End: 01-71-3035bfht 1 tablet by mouth every eight kzmyq827 mg, Oral, EVERY 8 HOURS NON-STANDARD, First dose on Wed04/10/22 at 2000, Until Discontinued Admi nister each dose four hours after dose of acetaminophen. Post-op/Post-Proc ibuprofen 200 MG tablet Take by mouth Fvwrwh03 hr loratadine 10 mg / pseudoephedrine sulfate 240 mg extended release oral tablet (1 source)alpha-Adrenergic AgonistStart: 73-81-4806bsew 1 tablet by mouth once daily, then take 1 tablet by mouth every twenty-four hoursLoratadine- Pseudoephedrine (Claritin-D 24 Hour) 10-240 mg tablet extended release 24 hr Active 1 TAB PO Daily 30 30 5 July 10, 2025 12:00am Allergic rhinitis Upper airway cough syndrome Other seasonal allergic rhinitis Other specified cough Complies with drug therapyMagnesium glycinate (4 sources)Start: 60-57-9679tidfprbyk glycinate Refills(s) 0 Start Date: 12/07/24 Status: Ordered Repeat number: 1magnesium oxide 400 mg oral tablet (20 sources)Start: 86-57-2040wrxe 1 tablet by mouth once dailyMagnesium Oxide 400 mg magnesium tablet Active 400 MG PO Daily October 19, 2023 12:00am Complieswith drug therapyMAGNESIUM OXIDE PO Take by mouth. ActiveMAGNESIUM OXIDE PO Take by mouth. 0 ActiveMAGNESIUM OXIDE PO Take by mouth. 0 Suspended meloxicam 15 mg oral tablet (20 sources)Nonsteroidal Anti-inflammatory DrugStart: 02-07-2024 End: 27-09-5341tmqw 1 tablet by mouth once dailyMeloxicam 15 mg tablet Active 0 .ROUTE .COMPLEX 90 June 25, 2025 7:25am TAKE 1 TABLET BY MOUTH DAILY Complies with drug therapyStart: 18-24-6274Jclghlpgj 15 mg tablet Active 0 .ROUTE .COMPLEX 90 February 07, 2024 4:32pm TAKE 1 TABLET DAILYStart: 10-18-2023 End: 81-94-0228qhoo 1 tablet by mouth once dailyMeloxicam 15 mg tablet Discontinued 15 MG PO Daily October 18, 2023 12:00am February 07, 2024 3:32pm FreeTextSi tablet Orally Once a day; Note: Source Status: Refill; Refills: 3; Qty: 90 Tablet;Provider: Adolfo Thrasher EStart: 35-37-4400llwcywxis 15 MG tablet as needed. 0 01/27/2022 ActiveMeloxicam (MOBIC PO) Take by mouth. Active Meloxicam (MOBIC PO) Take by mouth. 0 ActivemethylPREDNISolone 4 mg oral tablet (12 sources)CorticosteroidStart: 95-11-4390vjkgreMURJQYVsdkjb 4 MG as directed Orally for 6 days Oct, ActiveStart: 70-10-3109Blcu-Medrol 80 mg Oct, 80 mgoxyCODONE hydrochloride 5 mg oral tablet (20 sources)Opioid AgonistStart: 02-28-2025 End: 66-08-0945knaw 1 tablet by mouth every four hours as neededoxyCODONE (Roxicodone) 5 MG immediate release tablet TAKE 1 TO 2 TABLETS BY MOUTH q4hr NEEDED FOR PAIN 02/28/2025 03/15/2025 Discontinued (Therapy completed)Start: 10-46-8326kewr 1-2 tablets by mouth every four hours as needed for painoxyCODONE 5 mg Tab See Instructions, PRN for pain, 1-2 tab(s) Oral q4hr, # 40 tab(s), Refills(s) 0,Pharmacy: [facility], 162, cm, 04/25/24 13:55:00 EDT, Height/Length Dosing, 63.9, kg, 04/25/24 13:55:00 EDT, Weight Dosing Start Date: 05/10/24 Status: OrderedStart: 07-15-2023 End: 32-77-6432wnsv 1 tablet by mouth every six hours as neededoxyCODONE 5 MG tablet Indications: Post-op pain Take 1 tablet by mouth every 6 hours as needed for up to 3 days. 10 tablet 0 07/15/2023 09/08/2023 Discontinued (Therapy completed)Start: 65-78-1350zgdj 1 tablet by mouth every eight hours as needed for painoxyCODONE 5 MG tablet Indications: Capsular contracture of breast implant, initial encounter Take 1tablet by mouth every 8 hours as needed for Severe Pain for up to 7 days. 21 tablet 0 02/16/2023 ActiveStart: 06-29-2022 End: 68-50-8794uzpw 1 tablet by mouth every six hours as neededoxyCODONE 5 MG tablet Indications: Acquired absence of right breast and nipple , Malignant neoplasmof lower-inner quadrant of right breast of female, estrogen receptor positive Take 1 tablet by mouth every 6 hours as needed for up to 2 days. 8 tablet 0 06/29/2022 08/12/2022 Discontinued (Therapy completed)Start: 04-11-2022 End: 15-33-9710kdvd 1 tablet by mouth every six hours as needed for pain oxyCODONE 5 MG tablet Indications: Malignant neoplasm of lower-inner quadrant of right breast of female, estrogen receptor positive Take 1 tablet by mouth every 6 hours as needed for Moderate Pain for up to 7 days. 30 tablet 0 04/11/2022 ActiveStart: 04-10-2022 End: 69-71-2536abjw 1 tablet by mouth every four hours as neededoxyCODONE (ROXICODONE) tablet 2.5 mgProAir HFA 108 (90 Base) MCG/ACT (7 sources)take 2 puff(s) by mouth every four hours as needed for coughProAir HFA 108 (90 Base) MCG/ACT INHALE 2 PUFFS BY MOUTH EVERY 4 HOURS NEEDED for SHORTNESS OF BREATH & cough Inhalation Activetake 2 puff(s) by inhalation every four hours as neededProAir HFA 108 (90 Base) MCG/ACT 2 puffs as needed Inhalation every 4 hrs Not-TakingSuzetrigine (Journavx) 50 MG tablet (6 sources)Start: 02-12-2025 End: 37-56-2035awuh 1 tablet by mouth every twelve hoursSuzetrigine (Journavx) 50 MG tablet Indications: Left knee pain, unspecified chronicity Take 50 mg by mouth every 12 (twelve) hours for 14 days For the first dose, take 2 tablets (100 mg) on an emptystomach at least 1 hour before or 2 hours after food. Starting 12 hours after the initial dose, take 1 tablet (50 mg) every 12 hours with or without food. 30 tablet 02/12/2025 02/26/2025 Activeterbinafine 250 mg oral tablet (1 source)Allylamine AntifungalStart: 11-17-2570evpw 1 tablet by mouth once dailyTerbinafine Hcl 250 mg tablet Active 250 MG PO Daily June 04, 2025 11:00pm Complies with drug therapyvalACYclovir 1000 mg oral tablet (4 sources)Herpesvirus Nucleoside Analog DNA Polymerase Inhibitor, Herpes Simplex Virus Nucleoside Analog DNA Polymerase Inhibitor, Herpes Zoster Virus Nucleoside Analog DNA Polymerase InhibitorStart: 12-29-2024 End: 99-80-8251Uuedwwlwjyao (Valtrex) 1 gram tablet Active 1000 MG PO Twice daily 19 09July 04, 2025 9:48am Complies with drug therapyVitamin B Complex oral capsule (2 sources)Start: 84-29-5714Cpxueoq B Complex oral capsule Refill(s) 0 Start Date: 12/07/24 Status: Ordered Repeat number: 1vitamin b6 50 mg oral tablet (20 sources)take 1 tablet by mouth in the morningpyridoxine (B-6) 50 MG tablet Take 50 mg by mouth in the morning. ActiveVitamin D (9 sources)Start: 57-95-5934Uhcbgii D Refills(s) 0 Start Date: 12/07/24 Status: Ordered Repeat number: 1Vitamin D ActiveVITAMIN D PO (20 sources)VITAMIN D PO Take by mouth Activevitamin e 90 mg oral capsule (20 sources)Start: 16-54-9568dckt 1 capsule by mouth once dailyVitamin E (Dl, Acetate) 90 mg (200 unit) capsule Active 90 MG PO Daily December 17, 2024 11:00pm Complies with drug therapytake 1 capsule by mouth in the morningvitamin E 180 MG (400 UNIT) capsule Take 400 Units by mouth in the morning. Activetake 1 capsule by mouth once dailyvitamin E 400 units capsule Take 1 capsule by mouth daily. Activetake 1 capsule by mouth once dailyvitamin E 400 units capsule Take 1 capsule by mouth daily. 0 ActiveVitamin E Active Completed/Discontinued Medications MedicationDrug Class(es)DatesSig (Normalized)Sig (Original)acetaminophen 325 mg / HYDROcodone bitartrate 5 mg oral tablet (1 source)Opioid AgonistStart: 42-23-3527Igauy 325 mg-5 mg oral tablet See Instructions, for pain, 40 tab(s), Refill(s) 0, 1-2 tab(s) Oral q4hr, [facility], 161.4, cm, 12/07/24 12:09:00 EDT, Height/Length Dosing, 65.8, kg, 12/07/24 12:09:00 EDT, Weight Dosing Start Date: 12/20/24 Status: Ordered Quantity: 40.0 Unit: tab(s) Repeat number: 1albuterol 0.833 mg/ml / ipratropium bromide 0.167 mg/ml inhalation solution (2 sources)Anticholinergic, beta2-Adrenergic AgonistStart: 34-41-4462hyxi 3 mL by inhalation four times dailyIpratropium-Albuterol 0.5-2.5 (3) MG/3ML 3 ml Inhalation Four times a day December, Not-TakingAlbuterol 90 mcg/actuation Aerosol (5 sources)Start: 07-28-2021 End: 40-66-3780Zhafodgbz 90 mcg/actuation Aerosol Discontinued 90 MCG INHALATION As Directed July 28, 2021 12:00am June 05, 2025 9:51amStart: 07-28-2021 End: 17-95-8783Jwtgnivbt 90 mcg/actuation Aerosol Discontinued 90 MCG INHALATION As Directed July 28, 2021 1:00am June 05, 2025 10:51amStart: 76-49-6140Hklxpnvan 90 mcg/actuation Aerosol Active 90 MCG INHALATION As Directed July 28, 2021 1:00amazithromycin 250 mg oral tablet (16 sources)Macrolide AntimicrobialStart: 01-04-2025 End: 02-59-2967Oxafllfasslg 250 mg tablet Discontinued 0 PO .COMPLEX 6 0 January 03, 2025 11:00pm June 05, 2025 7:50am For 250 mg dose pack: take 500 mg today (day 1), then 250 mg for 4 days (days 2-5) POStart: 06-28-2024 End: 22-66-5681Nucbmbhaghbd 250 mg tablet Discontinued 0 PO .COMPLEX 6 0 June 27, 2024 11:00pm December 18, 2024 7:27am For 250 mg dose pack: take 500 mg today (day 1), then 250 mg for 4 days (days 2-5) POStart: 10-28-2023 End: 98-81-5833Vsawtzgsfgog 250 mg tablet Discontinued 0 PO .COMPLEX 6 0 October 28, 2023 12:00am December 03, 2023 8:07am For 250 mg dose pack: take 500 mg today (day 1), then 250 mg for 4 days (days 2-5) POStart: 05-11-2023 Azithromycin 250 MG as directed Orally 2 tabs po today, then 1 tab daily x 4 more days for Apr, ActiveStart: 39-39-0755Lqjifyaysqbc 250 MG as directed Orally 2 tabs po today, then 1 tab daily x 4 more days for Oct, Activebenzonatate 200 mg oral capsule (10 sources)Non-narcotic AntitussiveStart: 01-04-2025 End: 02-70-6129Spzxnkhvecm 200 mg capsule Discontinued 200 MG PO 2-3 TIMES PER DAY as needed for cough 20 0 January 03, 2025 11:00pm June 05, 2025 7:50am Start: 07-04-2024 End: 60-19-1201zfui 1 capsule by mouth every eight hours as needed for cough Benzonatate 100 mg capsule Discontinued 100 MG PO Q8H as needed for cough 30 July 04, 2024 12:00am December 19, 2024 8:20amStart: 01-59-8378gmua 1 capsule by mouth three times daily as neededTessalon Perles 100 mg 1 capsule as needed Orally Three times a day for 7 days Oct, Not-Takingcalcium chloride 0.0014 meq/ml / potassium chloride 0.004 meq/ml / sodium chloride 0.103 meq/ml / sodium lactate 0.028 meq/ml injectable solution (2 sources)Start: 04-10-2022 End: 59-82-3364reji 1 mL by mouth every hourIntravenous, at 75 mL/hr, CONTINUOUS, Starting on Wed04/10/22 at 1245, Until Wed04/11/22 at 0616 May saline well PIV after 6 hours if tolerating PO fluids w/o N/V. Post-op/Post-Proc Start: 04-10-2022 End: 52-70-3260rspqturn ringers IV solutionceFAZolin 1000 mg injection (1 source)Cephalosporin AntibacterialStart: 04-10-2022 End: 76-65-6756yzwv 1 g intravenously every eight hours1 g, Intravenous, Administer over 15 Minutes, EVERY 8 HOURS NON-STANDARD, 3 doses, First dose on Wed04/10/22 at 1415, Last dose on Wed04/11/22 at 0615, Post-op/Post-Proc estradiol 0.5 mg oral tablet (18 sources)EstrogenStart: 07-28-2021 End: 00-31-7950Ddkorhmnc 0.5 mg tablet Discontinued 0.5 MG PO As Directed July 28, 2021 12:00am October 19, 2023 10:38amfluticasone propionate 0.05 mg/actuat metered dose nasal spray (5 sources)CorticosteroidStart: 10-19-2023 End: 98-70-4795arsu 1 spray(s) nasal route once dailyFluticasone Propionate (Flonase Allergy Relief) 50 mcg/actuation spray,suspension Discontinued 2 SPRAY INTRANASAL Daily October 19, 2023 12:00am December 03, 2023 8:08am administer into each mwapvauBthjtdcqlqg-Etircebok-Kfcikg (Trelegy Ellipta) 200-62.5-25 MCG/ACT Aerosol Powder, breath activated (8 sources) End: 14-89-5278Jrjnfaeclbt-Umeclidin-Vilant (Trelegy Ellipta) 200-62.5-25 MCG/ACT Aerosol Powder, breath activatedInhale. 0 09/08/2023 Discontinued (Therapy completed)Odgkwqzxtbs-Whkicmbaa-Wlojmv (Trelegy Ellipta) 200-62.5-25 MCG/ACT Aerosol Powder, breath activatedInhale. 0 Active Xfluhktplmk-Pipxyqgyi-Lmmqcooe (7 sources)Start: 07-28-2021 End: 22-56-9255Ywetnwfctzl-Umeclidin-Vilanter (Trelegy Ellipta) 200-62.5-25 mcg blister with device Discontinued 2INH INHALATION As Directed July 28, 2021 12:00am October 19, 2023 10:38amStart: 07-28-2021 End: 97-79-8574Xatfbtidbma-Umeclidin-Vilanter (Trelegy Ellipta) 200-62.5-25 mcg blister with device Discontinued 2INH INHALATION As Directed July 28, 2021 1:00am October 19, 2023 11:38amStart: 07-28-2021 Iqfenrmsmpp-Zqakawaba-Xgwfhswg (Trelegy Ellipta) 200-62.5-25 mcg blister with device Active 2 INH INHALATION As Directed July 28, 2021 12:54hp936 actuat formoterol fumarate 0.005 mg/actuat / mometasone furoate 0.2 mg/actuat metered dose inhaler (2 sources)Corticosteroid, beta2-Adrenergic AgonistStart: 06-64-4864ktri 2 puff(s) by inhalation twice dailyDulera 200-5 MCG/ACT 2 puffs Inhalation Twice a day Jun, Not-Takingfurosemide 20 mg oral tablet (20 sources)Loop DiureticStart: 11-19-2023 End: 46-96-5114Cyaxmbdgty 20 mg tablet Discontinued 0 .ROUTE .COMPLEX as needed December 19, 2024 8:19am February 12:19pm TAKE 1 TABLET DAILY PRN;Start: 07-28-2021 End: 44-06-9822dlts 1 tablet by mouth once dailyFurosemide (Lasix) 20 mg Tablet Discontinued 20 MG PO Daily July 28, 2021 12:00am October 11:07am gabapentin 300 mg oral capsule (13 sources)Anti-epileptic AgentStart: 02-28-2025 End: 09-81-8572vwlm 1 capsule by mouth in the morning, then take 1 capsule by mouth in the evening, then take 1 capsule by mouth at bedtimegabapentin (Neurontin) 300 MG capsule Take 300 mg by mouth in the morning and 300 mg in the eveningand 300 mg before bedtime. 02/28/2025 04/12/2025 Discontinuedgadoterate Meglumine (DOTAREM) 5 MMOL/10ML injection 3-60 mL (1 source)Start: 02-27-2022 End: 05-73-8465celyqikgrt Meglumine (DOTAREM) 5 MMOL/10ML injection 3-60 mL1 ml HYDROmorphone hydrochloride 1 mg/ml cartridge (2 sources)Opioid AgonistStart: 04-10-2022 End: 43-43-1500MBODNfmhdnoki (DILAUDID) injection 0.5-1 mgStart: 04-10-2022 End: 40-51-8079OCEKDfleutgrw (DILAUDID) injectionketorolac tromethamine 10 mg oral tablet (14 sources)Nonsteroidal Anti-inflammatory Drug, Cyclooxygenase InhibitorStart: 02-28-2025 End: 07-41-5755aksl 1 tablet by mouth every eight hoursketorolac (Toradol) 10 MG tablet TAKE 1 TABLET BY MOUTH EVERY 8 HOURS FOR 3 DAYS 02/28/2025 04/12/2025 DiscontinuedStart: 05-10-2024 End: 10-03-4782nvay 1 tablet by mouth three times dailyketorolac 10 mg Tab 10 mg = 1 tab(s), Oral, TID, X 3 day(s), # 9 tab(s), Refills(s) 0, Pharmacy: [id number], 162, cm, 04/25/24 13:55:00 EDT, Height/Length Dosing, 63.9, kg, 04/25/24 13:55:00 EDT, Weight Dosing Start Date: 05/10/24 Stop Date: 05/13/24 Status: Orderedletrozole 2.5 mg oral tablet (20 sources)Aromatase InhibitorStart: 07-20-2023 End: 29-45-2098cdot 1 tablet by mouth once dailyLetrozole 2.5 mg tablet Discontinued 2.5 MG PO Daily October 18, 2023 12:00am April 18, 2024 9 :32am FreeTextSi tablet Orally Once a day; Note: Source Status: Taking; Provider: Danita Selby ( )Start: 50-65-6266cgtr 1 tablet by mouth once dailyLetrozole 2.5 MG tablet Indications: Malignant neoplasm of lower-inner quadrant of right breast of female, estrogen receptor positive Take 1 tablet by mouth daily. Dx C50.919 30 tablet 2 06/28/2023 Activelevothyroxine sodium 0.075 mg oral tablet (20 sources)l-ThyroxineStart: 46-83-2925atrh 1 tablet by mouth once daily levothyroxine 75 mcg (0.075 mg) Tab 75 mcg = 1 tab(s), Oral, Daily, Thyroid Start Date: 04/25/24 Status: Ordered Repeat number: 1Start: 03-09-2024 End: 57-19-2186gauc 1 tablet by mouth once dailyLevothyroxine 75 mcg tablet Discontinued 0 .ROUTE .COMPLEX 90 0 December 19, 2024 8:39am March 09, 2025 7:07am TAKE 1 TABLET BY MOUTH DAILYStart: 10-20-2023 End: 99-54-3018Gudckjqhbkjtc 50 mcg tablet Discontinued 0 .ROUTE .COMPLEX 90 1 October 20, 2023 8:42am December 08, 2023 5:11am TAKE 1 TABLET DAILYStart: 01-23-2022 End: 64-02-1052mkwo 1 tablet by mouth once dailyLevothyroxine 75 mcg tablet Discontinued 75 MCG PO daily 90 0 December 07, 2023 11:00pm March 09, 2024 8:35am Start: 03-10-2014 End: 87-96-4527Jtjsdowxybycw (Synthroid) 50 mcg tablet Discontinued 50 MCG PO As Directed July 28, 2021 12:00am October 20, 2023 8:42amLevothyroxine Sodium 50 MCG TAKE 1 TABLET DAILY ActiveMagnesium (2 sources)take 1 tablet by mouth once dailyMagnesium 800 MG 1 tablet with a meal Orally Once a day for 30 day(s) Not-Takingmontelukast 10 mg oral tablet (20 sources)Leukotriene Receptor AntagonistStart: 05-19-2023 End: 32-54-1329kpvh 1 tablet by mouth once dailyMontelukast 10 mg tablet Discontinued 1 TAB PO Daily October 18, 2023 12:00am November 23, 2023 1:48pm FreeTextSi tablet Orally Once a day; Note: Source Status: ContinueTake at night; Provider:Danita Selby Momeprazole 20 mg delayed release oral capsule (2 sources)Proton Pump Inhibitortake 1 capsule by mouth twice dailyOmeprazole 20 MG 1 capsule Orally twice daily for 30 days Not-Takingondansetron 4 mg disintegrating oral tablet (7 sources)Serotonin-3 Receptor AntagonistStart: 06-29-2022 End: 31-65-2178pmhl 1 tablet by mouth every eight hours as neededondansetron 4 MG Tab Dispersible tablet Take 1 tablet by mouth every 8 hours as needed for Nausea /Vomiting. 1 tablet 0 06/29/2022 08/12/2022 Discontinued (Therapy completed)Start: 04-10-2022 End: 28-17-7704qtit 4 mg intravenously every six hours as needed4 mg, Intravenous, EVERY 6 HOURS NEEDED, Starting on 04/10/22 at 1401, Until 04/11/22 at 1154, Nausea / Vomiting, 1st line If N/V persists through 1st line, continue 1st line therapy in addition to 2nd line therapy. Post-op/Post-Proc Start: 04-10-2022 End: 20-13-4638jtehjpxidbe 4mg/2ml (ZOFRAN) injection 4 mgpredniSONE 10 mg oral tablet (20 sources)Start: 04-26-2025 End: 25-62-9027Bmphepwmoj 10 mg tablets,dose pack Discontinued 10 MG PO .COMPLEX 21 0 April 25, 2025 11:00pm June 05, 2025 7:50am take 4 tabs x 3 days, 2 tabs x 3 days, 1 tab x 3 days, then stop;Start: 12-18-2024 End: 20-93-8222Oglmgdzygb 10 mg tablet Discontinued 10 MG PO Daily 12 8 0 December 18, 2024 1:37pm December 1852:21pm Take 2 tablets for 4 days then 1 tablet for 4 days then stop.Start: 12-18-2024 End: 67-86-8480Pbanryhucu 10 mg tablet Discontinued 10 MG PO As Directed December 17, 2024 11:00pm November 8:19am 4 tablets daily x 3 days, 2 tablets daily x 3 days, 1 tablet daily x 7 days then stopStart: 10-19-2023 End: 93-93-0538Lqerrpzruu 10 mg tablets,dose pack Discontinued 10 MG PO .COMPLEX October 19, 2023 12:00am December 03, 2023 8:08am take 4 tabs x 3 days, 2 tabs x 3 days, 1 tab x 3 days, then stop;Start: 87-90-3967nzcvpqDKAJ 10 MG 4 tabs po daily x 2 days, 3 tabs daily x 2 days, 2 tabs daily x 2 days, 1 tab daily x 2 days Orally Once a day for 8 Apr, Active End: 04-58-2324glgu 1 tablet by mouth once dailypredniSONE 10 MG tablet Take 1 tablet by mouth daily. Taper ends 02/25/23 0 09/08/2023 Discontinued (Therapy completed)2 ml prochlorperazine 5 mg/ml injection (1 source)PhenothiazineStart: 04-10-2022 End: 62-76-5169ccni 10 mg intravenously every six hours as mg, Intravenous, EVERY 6 HOURS NEEDED, Starting on Wed04/10/22 at 1401, Until 04/11/22 at 1154, Refractory Nausea Vomiting In addition to 1st line therapy. Post-op/Post-Procregadenoson (LEXISCAN) injection 0.4 mg (1 source)Start: 03-18-2022 End: 75-83-7004nwkupxcxqya (LEXISCAN) injection 0.4 mg72 hr scopolamine 0.0139 mg/hr transdermal system (1 source)AnticholinergicStart: 04-10-2022 End: 84-21-1135hashhrqxnfe (TRANSDERM-SCOP) patch 1 patchsennosides, detention 8.6 mg oral tablet (1 source)Start: 04-10-2022 End: 77-64-9799ywwh 8.6 mg by mouth twice daily8.6 mg, Oral, 2 TIMES DAILY, First dose on Wed04/10/22 at 1700, Until Discontinued, Post-op/Post-Proc10 ml sodium chloride 9 mg/ml injection (2 sources)Start: 03-18-2022 End: 66-11-8914mqrinf chloride (PF) 0.9 % injection 10-50 mLStart: 02-27-2022 End: 81-19-8385ubeytq chloride (PF) 0.9 % injection 1-100 mLtamoxifen 20 mg oral tablet (20 sources)Estrogen Agonist/AntagonistStart: 04-11-2024 End: 41-61-1031xjmx 1 tablet by mouth once dailyTamoxifen 20 mg tablet Discontinued 20 MG PO Daily April 18, 2024 9:35am June 05, 2025 9:26am She hasn't started it yet will after shoulder surgery. Surgery scheduled 05/10/24.TC-99M SULFUR COLLOID (0.10 UM FILTRATE) IVPB 0.36-0.6 millicurie (1 source)Start: 04-10-2022 End: 35-11-6676MF-99M SULFUR COLLOID (0.10 UM FILTRATE) IVPB 0.36-0.6 millicurie Technetium Tc 99m Sestamibi (Sestamibi) 7.2-38.5 millicurie (1 source)Start: 03-18-2022 End: 48-73-3472Cpxjjoxlrs Tc 99m Sestamibi (Sestamibi) 7.2-38.5 millicurie Technetium Tc 99m Sestamibi (Sestamibi) 7.2-49.5 millicurie (1 source)Start: 03-18-2022 End: 39-42-2150Ihxvjldcrc Tc 99m Sestamibi (Sestamibi) 7.2-49.5 millicurie traMADol hydrochloride 50 mg oral tablet (1 source)Opioid AgonistStart: 04-10-2022 End: 33-76-9254oqnw 1 tablet by mouth every six hours as nenjjq88 mg, Oral, EVERY 6 HOURS NEEDED, Starting on Wed04/10/22 at 1401, Until 04/11/22 at 1154, Mild Pain, Moderate Pain, Post-op/Post-Proctriamcinolone acetonide 32 mg injection (19 sources)CorticosteroidStart: 2024 End: 77-63-4605mmyypmbmmwbpi acetonide (Zilretta) injection 32 mgStart: 2024 End: 65-63-932263 mg, Once PRN Procedure, Starting on Wed09/14/24 at 1055, For 1 doseStart: 06-13-2024 End: 33-50-7177lnbidqujkwddj acetonide (Zilretta) injection 32 mgStart: 06-13-2024 End: 73-41-856010 mg, Once PRN Procedure, Starting on Wed06/13/24 at 1447, For 1 doseStart: 08-28-2022 End: 98-65-7100fbrryfffuwwao 0.1 % Cream cream Apply to itchy, radiated skin twice per day for 7-10 days. 28.4 g 09/08/2023 Discontinued (Therapy completed)24 hr venlafaxine 37.5 mg extended release oral capsule (17 sources)Serotonin and Norepinephrine Reuptake InhibitorStart: 08-12-2022 End: 31-36-1180kzco 1 capsule by mouth once dailyvenlafaxine 37.5 MG Cap SR 24HR capsule XR Indications: Malignant neoplasm of lower-inner quadrant of right breast of female, estrogen receptor positive , Hot flashes due to menopause Take 1 capsule by mouth daily. 90 capsule 3 10/14/2022 09/08/2023 Discontinued (Therapy completed)Effexor Active Problems Active Problems Problem ClassificationProblemDateDocumented DateEpisodic/ChronicAsthma (20 sources)Exacerbation of asthma; Translations: [Asthma exacerbation]Onset: 02-27-1279ChgtfcrFbasjnb on above:Problem List clean-up per request of Phys. EHR CmteCancer of breast (20 sources)Malignant neoplasm of lower-inner quadrant of right female breast; Translations: [Malignant neoplasm of lower-inner quadrant of female breast] Onset: 42-82-4374JdnlhleNwzgho of breast (11 sources)History of malignant neoplasm of breast; Translations: [Personal history of malignant neoplasm of breast]Onset: 60-60-8193DxcefbwnQimunazwmw disorders (20 sources)Gastro-esophageal reflux disease without esophagitis; Translations: [Gastroesophageal reflux disease]ChronicJoint disorders and dislocations; trauma-related (2 sources)Derangement of left knee; Translations: [Unspecified internal derangement of left knee]47-23-5896SbhjghtOuucx disorders and dislocations; trauma-related (1 source)Acute tear of medial meniscus of left knee; Translations: [Other tear of medial meniscus, current injury, left knee, initial encounter]01-21-2024 EpisodicMalaise and fatigue (11 sources)Other fatigue; Translations: [Fatigue]Onset: EpisodicMenopausal disorders (1 source)Menopausal flushing; Translations: [Menopausal and female climacteric states]ChronicMiscellaneous mental health disorders (5 sources)Lack or loss of sexual desire; Translations: [Hypoactive sexual desire disorder]ChronicMycoses (2 sources)Tinea pedis; Translations: [Tinea pedis]91-55-5408Hbrdqahj Nonmalignant breast conditions (12 sources)Unspecified lump in the right breast, lower inner quadrant; Translations: [Unspecified lump in the right breast, unspecified quadrant]Onset: 58-57-2878IwfpftgrMfik wounds of extremities (1 source)Puncture wound without foreign body of right hand, initial encounter EpisodicOsteoarthritis (11 sources)Osteoarthritis of left knee joint; Translations: [Unilateral primary osteoarthritis, left knee]50-41-3542JyapqaiGfduf aftercare (4 sources)Patient encounter status; Translations: [Aftercare following joint replacement surgery]75-94-8714ClpapsfCfous aftercare (1 source)Drug therapy finding; Translations: [Encounter for therapeutic drug level monitoring]91-24-0187TrgsvwiyEzvoq aftercare (2 sources)Prophylactic aromatase inhibitors given; 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]10-79-3471McdpajhkZyfer bone disease and musculoskeletal deformities (2 sources)Disorder of shoulder; Translations: [Idiopathic aseptic necrosis of unspecified shoulder]35-17-8771HisiafsTmbfz connective tissue disease (3 sources)History of reverse prosthetic total arthroplasty of right shoulder; Translations: [Presence of right artificial shoulder joint]31-94-5405Wslhibw Other connective tissue disease (4 sources)History of total knee arthroplasty; Translations: [Presence of left artificial knee joint]32-55-1426MdtrkxvOppxs connective tissue disease (5 sources)Pain in limb; Translations: [Pain in left leg]EpisodicOther gastrointestinal disorders (10 sources)Constipation; Translations: [Constipation, unspecified]EpisodicOther hereditary and degenerative nervous system conditions (5 sources)Restless legs; Translations: [Restless legs syndrome]12-03-2023 ChronicOther lower respiratory disease (3 sources)Interstitial lung disease; Translations: [Interstitial pulmonary disease, unspecified]ChronicOther lower respiratory disease (1 source)Multiple nodules of lung; Translations: [Other nonspecific abnormal finding of lung field]EpisodicOther lower respiratory disease (2 sources)Other nonspecific abnormal finding of lung field; Translations: [Other nonspecific abnormal findingof lung field]Onset: 24-02-2006WelkussiQomqr lower respiratory disease (9 sources)Posterior rhinorrhea; Translations: [Upper airway cough syndrome] 82-88-3444CffinskfPxcbf lower respiratory disease (5 sources)Nodule of lung; Translations: [Solitary pulmonary nodule]10-19-2023 EpisodicOther non-traumatic joint disorders (11 sources)Pain in left knee; Translations: [Left knee pain]92-24-2737Yvibpjbo Other nutritional; endocrine; and metabolic disorders (5 sources)Weight gain; Translations: [Abnormal weight gain]EpisodicOther screening for suspected conditions (not mental disorders or infectious disease) (5 sources)CT of chest abnormal; Translations: [Abnormal findings on diagnostic imaging of other specified body structures]35-71-0097XpghreoShnru screening for suspected conditions (not mental disorders or infectious disease) (20 sources)Patient encounter status; Translations: [Encounter for other screening for genetic and chromosomal anomalies]Onset: [id number] EpisodicComment on above:Problem List clean-up per request of Phys. EHR Cmte Other upper respiratory disease (6 sources)Allergic rhinitis; Translations: [Allergic rhinitis, unspecified] 09-23-7632MvgpvbjYlohe upper respiratory disease (3 sources)Allergic rhinitis, unspecified; Translations: [Allergic rhinitis, cause unspecified]48-07-7637ZuahhkoDxlio upper respiratory infections (2 sources)Acute maxillary sinusitis; Translations: [Acute maxillary sinusitis, unspecified]67-01-8890YeaxpbznVntkinfz codes; unclassified (2 sources)Daytime somnolence; Translations: [Other hypersomnia]Onset: 642631-37-9401OtmdjibWydbguwg codes; unclassified (1 source)Family history of malignant neoplasm of digestive organs; Translations: [FAM HX MALIG NEOPLASM DIGESTIV ORGN]Onset: 44-10-4912Gpeppfmv Residual codes; unclassified (12 sources)Acquired absence of breast; Translations: [Acquired absence of unspecified breast and nipple]EpisodicResidual codes; unclassified (5 sources)Reduced libido; Translations: [Decreased libido]EpisodicResidual codes; unclassified (1 source)Hot flash due to medication; Translations: [Flushing]2023 EpisodicResidual codes; unclassified (2 sources)Postmenopausal state; Translations: [Asymptomatic menopausal state] 38-24-2481TbpgzomnGtappvfy codes; unclassified (6 sources)Ezbst43-48-8468PeuqrbwjUuttjwxt codes; unclassified (2 sources)Estrogen receptor positive status [ER+]; Translations: [Estrogen receptor positive status (ER+)]Onset: 54-15-5285HprepheeMakpezq disorders (20 sources)Hypothyroidism, unspecified; Translations: [Hypothyroidism]Onset: 36-84-4134GhieeixNjawnorllgij (1 source)Other specified cough; Translations: [Other specified cough]Onset: 10-70-8502Dfkvowaxhprg (4 sources)Left knee pain, unspecified byqbbhkwox50-54-6158Dbruy infection (5 sources)Herpes simplex otitis externa; Translations: [Herpesviral vesicular dermatitis]Episodic Past or Other Problems Problem ClassificationProblemDateDocumented DateEpisodic/ChronicComplication of device; implant or graft (2 sources)Erosion of implanted vaginal mesh to surrounding organ or tissue, initial encounter; Translations: [Erosion of implanted vaginal mesh and other prosthetic materials to surrounding organ or tissue]Onset: EpisodicConditions associated with dizziness or vertigo (2 sources)Dizziness and giddiness; Translations: [Dizziness and giddiness] Onset: [id number] disorders (20 sources)Mood disordersOnset: 02-24-2022 Resolved: ther aftercare (2 sources)halfway (current) use of aromatase inhibitors; Translations: [halfway (current) use of aromatase inhibitors]Onset: 64-09-0373CbggxetrDnnsi ear and sense organ disorders (2 sources)Otalgia, right ear; Translations: [Otalgia, unspecified]Onset: 852084-40-4167QouvfzdxJgyzkztfu (except that caused by tuberculosis or sexually transmitted disease) (2 sources)Recurrent pneumonia; Translations: [Pneumonia, unspecified organism] Onset: 896052-01-8003NmalvqimFeeikjiu codes; unclassified (2 sources)Asymptomatic menopausal state; Translations: [Asymptomatic menopausal state]Onset: 92-23-1726SsxwgwuiFuabjbotqpql (5 sources)Upper airway cough syndrome; Translations: [Upper airway cough syndrome]Unclassified (2 sources)Upper airway cough syndrome R05.8Viral infection (5 sources)Disease caused by 2019-nCoV; Translations: [COVID-19] Results Test NameValueInterpretationReference RangeFacilityXR Knee - left 3 Viewson [id number] Result: Three views, bilateral PA weight-bearing/sunrise/lateral left knee, taken today and saved to the permanent medical record are reviewed. Prosthesis is unchanged in position and alignment. No signs of prosthetic wear or loosening. No periprosthetic fractures.[facility] K[facility] - left 3 Viewson [id number] Study observation (narrative)[facility] MAMMO DIAGNOSTIC WITH ADRIEL LEFTon [id number] DIAGNOSTIC WITH ADRIEL LEFTEXAM: MAMMO DIAGNOSTIC WITH ADRIEL LEFT, 03/28/2025 15:07 PM CLINICAL INDICATIONS AND HISTORY: screening. history of right breast cancer Z85.3:Personal history of malignant neoplasm of breast COMPARISON: MAMMO DIAGNOSTIC WITH ADRIEL LEFT March 22, 2024, MAMMO DIAGNOSTIC WITH ADRIEL LEFT January 27, 2023, MAMMO DIAGNOSTIC RIGHT [...] no suspicious masses, calcifications, or architectural distortions. IMPRESSION: No specific mammographic evidence of malignancy. BI-RADS: 2: Benign Recommendation: Routine mammography. Recommendation Laterality: Left [facility] Facility: [facility], [address] [place] [address] Table formatting from the original result was not included. MAMMO STANDARD RISK SA SITE [place]GIN [place] [address] SA SITE [facility] Breast Viewson [id number]: No specific mammographic evidence of malignancy. BI-RADS: 2: Benign Recommendation: Routine mammography. Recommendation Laterality: Left [facility] Facility: [facility], [address] [place] [address] RADIOLOGY EXAM: MAMMO DIAGNOSTIC WITH ADRIEL LEFT, 03/28/2025 15:07 PM CLINICAL INDICATIONS AND HISTORY: screening. history of right breast cancer Z85.3:Personal history of malignant neoplasm of breast COMPARISON: MAMMO DIAGNOSTIC WITH ADRIEL LEFT March 22, 2024, MAMMO DIAGNOSTIC WITH ADRIEL LEFT January 27, 2023, MAMMO DIAGNOSTIC RIGHT [...] no suspicious masses, calcifications, or architectural distortions. RADIOLOGYTaylorTeja MD - 03/28/2025 EXAM: MAMMO DIAGNOSTIC WITH ADRIEL LEFT, 03/28/2025 15:07 PM CLINICAL INDICATIONS AND HISTORY: screening. history of right breast cancer Z85.3:Personal history of malignant neoplasm of breast COMPARISON: MAMMO DIAGNOSTIC WITH ADRIEL LEFT March 22, 2024, MAMMO DIAGNOSTIC WITH ADRIEL LEFT January 27, 2023, MAMMO DIAGNOSTIC RIGHT [...] no suspicious masses, calcifications, or architectural distortions. IMPRESSION IMPRESSION: No specific mammographic evidence of malignancy. BI-RADS: 2: Benign Recommendation: Routine mammography. Recommendation Laterality: Left [facility] Facility: [facility], [address] [place] [address], [facility]ative[facility] Breast ViewsOrdered By: Teja Irving on [id number] Hospital Work Phone: XR Knee - left 3 Viewson [id number] Result: Three views, bilateral PA weight-bearing/sunrise/lateral left knee, taken today and saved to the permanent medical record are reviewed. Prosthesis is unchanged in position and alignment. No signs of prosthetic wear or loosening. No periprosthetic fractures. [facility] Center[facility] Study observation (narrative)[facility] Hospital[facility]urgical Pathology Reporton [id number] Pathology Report[address] [place] [address]- Surgical Pathology Report Collected Date/Time: 02/28/2025 07:47 EDT Pathologist: Lance SIERRA PhD, Shantanu Stewart Received Date/Time: 02/28/2025 10:54 EDT Ba Romero DO, DO, Jason A 07 Surgical Pathology Report - 03/05/2025 11:58 EDT - Auth (Verified) Final Diagnosis LEFT KNEE BONE AND SOFT TISSUE, ARTHROPLASTY: - BONE CARTILAGE WITH DEGENERATIVE REMODELING CHANGES, CONSISTENT WITH DEGENERATIVE OSTEOARTHRITIS. - BENIGN SYNOVIAL SOFT TISSUE. (Electronic Signature) Shantanu Lucas MD PhD 03/05/2025 11:58 Clinical Information osteoarthritis Pre-Op Diagnosis: osteoarthritis Procedure: left total knee arthroplasty robotic assisted Post-Op Diagnosis: Advanced degenerative and posttraumatic osteoarthrosis, left knee Specimen(s) Received left knee bone and soft tissue Gross Description Received in formalin labeled with patient name, number, and left knee bone and soft tissue. The specimen consists of an assortment of fragments of yellowish-white fibrofatty tissue and osseous tissue which in aggregate measure 10 x 10 x 5.5 cm. Among the segments is a partial recognizable tibial plateau and crescent-shaped meniscal fibrocartilage. The osseous segments are in part covered by articular surface which is thin, rough, and eburnated with osteophyte formation present. Specimen is submitted in two cassettes: 1 - Soft tissue 2 - Bone after decalcification (DC) DC:[facility] Microscopic Description Microscopic examination performed unless gross only specified. Quality was accessed and acceptable. This report was transcribed using voice recognition technology and might contain unintended computerized mobile heavy equipment mechanic errors.NormalGeorgetown Behavioral HospitalComment on above:Performed By: #### [id number] #### [facility] [address] [place] [id number] OR Intraoperative Recordon [id number] OR Intraoperative RecordMain OR Intraoperative Record IntraOp Document Type FT Summary Primary Physician: Ba Romero DO Finalized Date/Time: 03/01/25 11:56:06 Pt. Name: MALIA COOK /Sex: 1960 Female Med Rec #: [id number] Physician: Ba Romero DO Financial #: [id number] Pt. Type: A Room/Bed: [place] [address] Admit/Disch: 02/28/25 05:37:08 - 02/28/25 12:30:00 Institution: Case Times FT Entry 1 Patient Times In Room 02/28/25 07:11:00 Out Room 02/28/25 09:25:00 Procedure Times Start 02/28/25 07:43:00 Stop 02/28/25 09:18:00 Anesthesia Times Start 02/28/25 07:11:00 Stop 02/28/25 09:25:00 Block Timeout w02/28/25 07:04:00 Anesthesia Last Modified By: Mattie Martinez 02/28/25 09:29:10 General Comments: BLOCK TIME OUT AT 0704 WITH NICOLAS Allen CRNA AND BIJU StewartRN ASSISTING. HEART RATE 77 BPM AND SPO2 100% ONROOM AIR. PATIENT TOELRATED WELL, THEN AFTER BLOCK PATIENT TRANSPORTED TO THE OR.ADAN FERREIRA. Case Attendance FT Entry 1 Entry 2 Entry 3 Case Attendee Venus Loera CRNA, DO, Jason A Burgderfer, Kelsie E Role Performed STRATEGY ASSOCIATE Surgeon - Primary Computer Systems Support Specialist - Primary Time In 02/28/25 07:11:00 02/28/25 07:34:00 02/28/25 07:11:00 Time Out 02/28/25 09:25:00 02/28/25 09:06:00 02/28/25 09:25:00 Procedure KNEE TOTAL ROBOT KNEE TOTAL ROBOT KNEE TOTAL ROBOT ARTHROPLASTY(Left) ARTHROPLASTY(Left) ARTHROPLASTY(Left) Comments IS SUPERVISING Last Modified By: Mattie Martinez Kelsie E Burgderfer, Kelsie E 02/28/25 09:29:12 02/28/25 09:29:12 02/28/25 09:29:12 Entry 4 Entry 5 Entry 6 Case Attendee Deshawn Moore CST, Adriane Davis Role Performed Scrub - Primary FLARE WORKER/SA Staff - Other Time In 02/28/25 07:11:00 02/28/25 07:11:00 02/28/25 07:11:00 Time Out 02/28/25 09:11:00 02/28/25 09:25:00 02/28/25 09:25:00 Procedure KNEE TOTAL ROBOT KNEE TOTAL ROBOT KNEE TOTAL ROBOT ARTHROPLASTY(Left) ARTHROPLASTY(Left) ARTHROPLASTY(Left) Comments 2ND SCRUB Last Modified By: Mattie Martinez Kelsie E Burgderfer, Kelsie E 02/28/25 09:29:12 02/28/25 09:29:12 02/28/25 09:29:12 Entry 7 Case Attendee Biju RN, Crystal Greenwood Role Performed Staff - Other Time In 02/28/25 07:11:00 Time Out 02/28/25 07:31:00 Procedure KNEE TOTAL ROBOT ARTHROPLASTY(Left) Comments HELPING IN THE ROOM Last Modified By: Mattie Martinez 02/28/25 09:29:12 General Comments: LACHO CACERES, IN ATTENDANCE.ADAN FERREIRA. Perioperative Protocols FT Pre-Care Text: Implements protective measures prior to operative or invasive procedure, confirms identity before the operative or invasive procedure, verifies operative procedure, surgical site, and laterality Entry 1 Procedure(s) KNEE TOTAL ROBOT Patient Identity Birthday, ID Band ARTHROPLASTY(Left) Verified (select at Check, Patient least 2): Participation Consents / H and P Anesthesia Consent, Operative Site Present Verified H&P, Surgery/Procedure Marking Verified Consent, Transfusion Consent Surgical Site Yes Laterality Verified Yes Verified Procedure Verified Yes Correct Patient Yes Position Verified Availability Equipment, Implant, Prep Dry n/a Verified (If Medication Applicable) PreOp Antibiotic Yes Time Out Venus Loera CRNA, Given Participants Ba Romero DO, Mattie Martinez, Deshawn Moore Wilhelm CST, Martha Vazquez Madison A Time Out Complete 02/28/25 07:42:00 Outcomes Met? Yes Last Modified By: Mattie Martinez 02/28/25 07:52:41 Post-Care Text: The patient is free from signs and symptoms of injury caused by extraneous objects Allergy Information FT Pre-Care Text: Verifies allergies Entry 1 Allergies Reviewed? Yes Allergies Reviewed Self/Patient With Outcomes Met? Yes Last Modified By: Mattie Martinez 02/28/25 06:59:22 Post-Care Text: The patient received appropriate medication(s) safely administered during the perioperative period Surgical Procedures FT Entry 1 Procedure Description Procedure KNEE TOTAL ROBOT Modifiers Left ARTHROPLASTY Surgeon Description LEFT TOTAL KNEE ARTHROPLASTY WITH ROBOTIC ASSIST Primary Procedure Yes Primary Surgeon Ba Romero DO Start 02/28/25 07:43:00 Stop 02/28/25 09:18:00 Anesthesia Type General Surgical Service Orthopedics Wound Class 1 - Clean Last Modified By: Shaneka Garza CST 03/01/25 11:53:21 General Case Data FT Pre-Care Text: Classifies surgical wound, implements aseptic technique, initiates traffic control Entry 1 Case Information OR OR 7 FT Case Level Level 6 Wound Class 1 - Clean Specialty Orthopedics ASA Class 2 Preop Diagnosis OSTEOARTHRITIS LEFT KNEE Postop Same As Preop Yes Postop Diagnosis OSTEOARTHRITIS LEFT KNEE Outcomes Met? Yes Last Modified By: Mattie Martinez 02/28/25 07:56:57 Post-Care Text: The patient is free from signs and symptoms of infection Skin Assessment (Pre Procedure) F (more content not included)...[facility] 1 OR 2 VIEWS LEFTon 03-01-2025 Exam Date/Time: 02/28/2025 09:52 EDT Reason for Exam: Post-op evaluation;Other (please specify) Report IMPRESSION: NEGATIVE POSTOPERATIVE LEFT KNEE. CLINICAL HISTORY: Post-op evaluation COMPARISON: 01/01/2025. FINDINGS: 2 views left knee show interval placement of bipolar left knee replacement. Remote surgical screw visualized coursing through proximal left tibia. No acute fracture. No abnormal lucency bone prosthetic interface. Ordering Provider: Ba Romero FINAL REPORT Dictated: 03/01/2025 3:59 pm George Stayc MD Signed (Electronic Signature): 03/01/2025 3:59 pm Signed by: George Stacy MD Transcribed by: ROJELIO Technologist: CHRISTIANACARERadiology, Radiologist, - 03/01/2025 Exam Date/Time: 02/28/2025 09:52 EDT Reason for Exam: Post-op evaluation;Other (please specify) Report IMPRESSION: NEGATIVE POSTOPERATIVE LEFT KNEE. CLINICAL HISTORY: Post-op evaluation COMPARISON: 01/01/2025. FINDINGS: 2 views left knee show interval placement of bipolar left knee replacement. Remote surgical screw visualized coursing through proximal left tibia. No acute fracture. No abnormal lucency bone prosthetic interface. Ordering Provider: Ba Romero FINAL REPORT Dictated: 03/01/2025 3:59 pm George Stacy MD Signed (Electronic Signature): 03/01/2025 3:59 pm Signed by: George Stacy MD Transcribed by: ROJELIO Technologist: [facility] HospitalXR KNEE 1 OR 2 VIEWS LEFTOrdered By: Radiologist Radiology on [id number] Dr. Tariff Work Phone: XR Knee 1 or 2 Views Lefton [id number] Knee 1 or 2 Views LeftExam Date/Time: 02/28/2025 09:52 EDT Reason for Exam: Post-op evaluation;Other (please specify) Report IMPRESSION: NEGATIVE POSTOPERATIVE LEFT KNEE. CLINICAL HISTORY: Post-op evaluation COMPARISON: 01/01/2025. FINDINGS: 2 views left knee show interval placement of bipolar left knee replacement. Remote surgical screw visualized coursing through proximal left tibia. No acute fracture. No abnormal lucency bone prosthetic interface. Ordering Provider: Ba Romero FINAL REPORT Dictated: 03/01/2025 3:59 pm George Stacy MD Signed (Electronic Signature): 03/01/2025 3:59 pm Signed by: George Stacy MD Transcribed by: ROJELIO Technologist: [facility] WestABO/Rhon [id number]/RhPositiveInvalid Interpretation [facility] Comment on above:Performed By: #### [id number] #### [facility] [address] [place], [place] [address]BWT/Rh History Checkon [id number]/Rh History CheckVerified Hx Blood TypeNoSouthern Ohio Medical CenterComment on above:Performed By: #### [id number] #### [facility] [address] [place], [place] [address]PJAToy [id number] Gel InterpNegativeNormalGeorgetown Behavioral HospitalComment on above:Performed By: #### [id number] ####[facility] [address] [place] [address]MHXHI BANKOrdered By: Candi Ling on [id number]/Rh InterpPositiveInvalid Interpretation Code [facility] BB SubsectionABSC Gel InterpNegative (02/28/25 6:31 AM)NormalOKLAHOMA STATE UNIVERS[facility] BB SubsectionBlood Bank ID#on [id number] Invalid Interpretation CodeGeorgetown Behavioral HospitalComment on above:Performed By: #### [id number] #### [facility] [address] [place], [place] [address]Jtkqnsutx Instructionson [id number] Instructions Discharge Instructions MALIA COOK :1960 Visit Date:02/28/2025 Inpatient Discharge Instructions Your Care Team Admitting Physician - Ba Romero DO Referring Physician - Ba Romero DO Reason for Your Visit OA LEFT KNEE Tests Performed Pathology Tissue Exam -- Results Pending -- XR Knee 1 or 2 Views Left -- Results Pending -- Please visit your patient portal for your results or contact your primary care physician. This Is Your Medications List acetaminophen (acetaminophen 500 mg Tab) albuterol (Albuterol (Eqv-ProAir HFA)) ascorbic acid (Vitamin C) ashwagandha aspirin (aspirin 81 mg Oral EC Tab) celecoxib (CeleBREX 100 mg Cap) cephalexin (Keflex 500 mg Cap) docusate (Colace 100 mg Cap) ergocalciferol (Vitamin D) esomeprazole (Nexium 20 mg Cap-DR) furosemide (furosemide 20 mg Tab) gabapentin (gabapentin 300 mg Cap) ketorolac (ketorolac 10 mg Tab) levothyroxine (levothyroxine 75 mcg (0.075 mg) Tab) magnesium glycinate montelukast (montelukast 10 mg Tab) oxycodone (oxyCODONE 5 mg Tab) tamoxifen (tamoxifen 20 mg Tab) Procedure History Arthroscopy of knee (12/20/2024), 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 What to do next Instructions From Your Doctor No qualifying data available. New Follow Up Appointments after Discharge Follow Up with Ba Romero When: 03/16/2025 11:00 AM EDT Comments: Call for any problems. Please call if you need to reschedule * [facility] * Where: [address] [place] [address] [place] [address]- Business (1) Medications What How Much When Instructions Next Dose New acetaminophen (acetaminophen 500 mg Tab) 1 Tablets By Mouth Every 4 hours Pickup at [facility] New aspirin (aspirin 81 mg Oral EC Tab) 1 Tablets By Mouth Every day Duration: 90 Days Pickup at [facility] New cephalexin (Keflex 500 mg Cap) 1 Capsules By Mouth Every 8 hours Duration: 7 Days Pickup at [facility] New docusate (Colace 100 mg Cap) 1 Capsules By Mouth 2 times a day as needed for for constipation Pickup at [facility] New gabapentin (gabapentin 300 mg Cap) 1 Capsules By Mouth 3 times a day Duration: 14 Days Pickup at [facility] New ketorolac (ketorolac 10 mg Tab) 1 Tablets By Mouth Every 8 hours Duration: 3 Days Pickup at [facility] New oxycodone (oxyCODONE 5 mg Tab) See instructions 1-2 tab(s) Oral q4hr Pickup at [facility] Changed celecoxib (CeleBREX 100 mg Cap) 1 Capsules By Mouth 2 times a day start after finishing ketorolac Pickup at [facility] Unchanged albuterol (Albuterol (Eqv-ProAir HFA)) Unchanged ascorbic acid (Vitamin C) Unchanged ashwagandha Unchanged ergocalciferol (Vitamin D) Unchanged esomeprazole (Nexium 20 mg Cap-DR) 1 Capsules By Mouth Every day Unchanged furosemide (furosemide 20 mg Tab) 1 Tablets By Mouth Every day as needed for edema Unchanged levothyroxine (levothyroxine 75 mcg (0.075 mg) Tab) 1 Tablets By Mouth Every day Unchanged magnesium glycinate Unchanged montelukast (montelukast 10 mg Tab) 1 Tablets By Mouth Every day Unchanged tamoxifen (tamoxifen 20 mg Tab) 1 Tablets By Mouth Every day Pharmacy Information [facility]: [address] [place], [place] [id number] [phone] Test Results No qualifying data available. Allergies Imitrex (Cognitive impairment, Hallucinations) Education Materials How to Use an Incentive Spirometer An incentive spirometer is a tool that measures how well you are filling your lungs with each breath. Learning to take long, deep breaths using this tool can help you keep your lungs clear and active. This may help to reverse or lessen your chance of developing breathing (pulmonary) problems, especially infection. You may be asked to use a spirometer: ??? After a surgery. ??? If you have a lung problem or a history of smoking. ??? After a long period of time when you have been unable to move or be active. If the spirometer includes an indicator to show the highest number that you have reached, your health care provider or respiratory therapist will help you set a goal. Keep a log of your progress as told by your health care provider. What are the risks? Breathing too quickly may cause dizziness or cause you to pass out. Take your time so you do not get dizzy or light-headed. ??? If you are in pain, you may need to take pain medicine before doing incentive spirometry. It is harder to take a deep breath if you are having linda (more content not included)...[facility] HospitalComment on above:Result Comment: Electronically Signed By: Walt ARELLANO, Silvia Waters\.honorio\Date and Time Signed: 02/28/25 09:20 EDTH&P Updateon 02-28-2025H&P UpdateH&P Update Patient: MALIA COOK Age: 64 years Sex: Female : 1960 Associated Diagnoses: None Author: Ba Romero DO Basic Information H&P Reviewed. Patient seen and examined, appropriate for planned surgery. Health Status Procedure history: Arthroscopy of knee (143051982) on 12/20/2024 at 64 Years. Reverse total right shoulder replacement (2730352010) on 05/10/2024 at 63 Years. B/L LASIK (3550197679) in 2004 at 44 Years. Sling procedure of bladder neck (095790453) in 2003 at 43 Years. Repair of shattered R heel (107888034) in 1998 at 38 Years. repair of L broken foot (061330175) in 1998 at 38 Years. Right thoracic outlet syndrome (6888348522) in 1984 at 24 Years. Carpal tunnel release (124247115) in 1979 at 19 Years. Repair of ulnar digital nerve ([id number]) in 1979 at 19 Years. Repair of anterior cruciate ligament of knee joint LEFT (368654282) in 1979 at 19 Years. Abdominal hysterectomy (860863224). History of mastectomy (6874709142). Social History Social & Psychosocial Habits Alcohol 02/28/2025 Risk Assessment: Denies Alcohol Use Substance Abuse 02/28/2025 Risk Assessment: Denies Substance Abuse Tobacco 02/28/2025 Risk Assessment: Denies Tobacco Use . Allergies: Allergic Reactions (Selected) Severity Not Documented Imitrex- Cognitive impairment and hallucinations. Current medications: (Selected) Inpatient Medications Ordered Lactated Ringers IV Ayanna 1000 mL 1,000 mL: 1,000 mL, IV, 150 mL/hr, Routine, Start date 02/28/25 6:00:00 EDT, 6.7 hour(s), Total volume (mL): 1,000, 65.2 kg, 1.71, m2 morphine 2 mg/mL Inj: 2 mg = 1 mL, Injection, IV Push, q4hr PRN Pain 8-10 for 5 day(s), Stop date 03/05/25 7:08:00 EDT, Routine, Start date 02/28/25 7:09:00 EDT oxyCODONE 5 mg Tab: 10 mg = 2 tab(s), Tab, Oral, q4hr PRN Pain 8-10 for 5 day(s), Stop date 03/05/25 7:08:00 EDT, Routine, Start date 02/28/25 7:09:00 EDT, 02/28/25 7:09:00 EDT oxyCODONE 5 mg Tab: 5 mg = 1 tab(s), Tab, Oral, q4hr PRN Pain 8-10 for 5 day(s), Stop date :08:00 EDT, Routine, Start date 02/28/25 7:09:00 EDT, 02/28/25 7:09:00 EDT Prescriptions Prescribed CeleBREX 100 mg Cap: 100 mg = 1 cap(s), Oral, BID, start after finishing ketorolac, # 60 cap(s), Refills(s) 0, Pharmacy: [facility], 161, cm, 02/13/25 12:19:00 EDT, Height/Length Dosing, 65.2, kg, 02/13/25 12:19:00 EDT, Weight Dosing Colace 100 mg Cap: 100 mg = 1 cap(s), Oral, BID, PRN for constipation, # 20 cap(s), Refills(s) 0, Pharmacy: [facility], 161, cm, 02/13/25 12:19:00 EDT, Height/Length Dosing, 65.2, kg,02/13/25 12:19:00 EDT, Weight Dosing Keflex 500 mg Cap: 500 mg = 1 cap(s), Oral, q8hr, X 7 day(s), # 21 cap(s), Refills(s) 0, Pharmacy: [facility], 161, cm, 02/13/25 12:19:00 EDT, Height/Length Dosing, 65.2, kg, 02/14/2512:19:00 EDT, Weight Dosing acetaminophen 500 mg Tab: 500 mg = 1 tab(s), Oral, q4hr, # 60 tab(s), Refills(s) 0, Pharmacy: [facility], 161, cm, 02/13/25 12:19:00 EDT, Height/Length Dosing, 65.2, kg, 02/13/25 12:19:00 EDT, Weight Dosing aspirin 81 mg Oral EC Tab: 81 mg = 1 tab(s), Oral, Daily, X 90 day(s), # 90 tab(s), Refills(s) 0, Pharmacy: [facility], 161, cm, 02/13/25 12:19:00 EDT, Height/Length Dosing, 65.2, kg,02/13/25 12:19:00 EDT, Weight Dosing gabapentin 300 mg Cap: 300 mg = 1 cap(s), Oral, TID, X 14 day(s), # 42 cap(s), Refills(s) 0, Pharmacy: [facility], 161, cm, 02/13/25 12:19:00 EDT, Height/Length Dosing, 65.2, kg, 02/13/25 12:19:00 EDT, Weight Dosing ketorolac 10 mg Tab: 10 mg = 1 tab(s), Oral, q8hr, X 3 day(s), # 9 tab(s), Refills(s) 0, Pharmacy: [facility], 161, cm, 02/13/25 12:19:00 EDT, Height/Length Dosing, 65.2, kg, 02/14/2512:19:00 EDT, Weight Dosing oxyCODONE 5 mg Tab: See Instructions, PRN for pain, 1-2 tab(s) Oral q4hr, # 40 tab(s), Refills(s) 0, Pharmacy: [facility], 161, cm, 02/13/25 12:19:00 EDT, Height/Length Dosing, 65.2, kg, 02/13/25 12:19:00 EDT, Weight Dosing Documented Medications Documented Albuterol (Eqv-ProAir HFA): Refill(s) 0 Nexium 20 mg Cap-DR: 20 mg = 1 cap(s), Oral, Daily, Control of stomach acid Vitamin C: Refills(s) 0 Vitamin D: Refills(s) 0 ashwagandha: Refill(s) 0 furosemide 20 mg Tab: 20 mg = 1 tab(s), Oral, Daily, PRN edema levothyroxine 75 mcg (0.075 mg) Tab: 75 mcg = 1 tab(s), Oral, Daily, Thyroid magnesium glycinate: Refills(s) 0 montelukast 10 mg Tab: 10 mg = 1 tab(s), Oral, Daily, Asthma tamoxifen 20 mg Tab: 20 mg = 1 tab(s), Oral, Daily, Refills(s) 0, Other (see comment), Home Medications (18) Active acetaminophen 500 mg Tab 500 mg = 1 tab(s), Oral, q4hr Albuterol (Eqv-ProAir HFA) ashwagandha aspirin 81 mg Oral EC Tab 81 mg = 1 tab(s), Oral, Daily CeleBREX 100 mg Cap 100 mg = 1 cap(s), Oral, BID Colace 100 mg Cap 100 mg = 1 cap(s), PRN, Oral, BID furosemide 20 mg Tab 20 mg = 1 tab(s), PRN, Ora (more content not included)... [facility]:Result Comment: Electronically Signed By: Ba Romero DO\.br\Date and Time Signed: 02/28/25 10:52 EDT Inpatient Patient Summaryon [id number] Patient SummaryInpatient Patient Summary [place] [address] [facility] Clinical Discharge Instructions PERSON INFORMATION Name: MALIA COOK PHYSICIANS Admitting Physician: Ba Romero DO Attending Physician: Ba Roemro DO PCP: TUCKER HAYWOOD MD Discharge Diagnosis: Comment: PATIENT EDUCATION INFORMATION Instructions: Kenia Romero - Total Knee Arthroplasty (Custom) Medication Leaflets: Follow up: MEDICATION LIST New Medications [facility], [address], [place] [id number], [phone] acetaminophen (acetaminophen 500 mg Tab) 1 Tablets By Mouth every 4 hours. Refills: 0. aspirin (aspirin 81 mg Oral EC Tab) 1 Tablets By Mouth every day for 90 Days. Refills: 0. cephalexin (Keflex 500 mg Cap) 1 Capsules By Mouth every 8 hours for 7 Days. Refills: 0. docusate (Colace 100 mg Cap) 1 Capsules By Mouth 2 times a day as needed for constipation. Refills:0. gabapentin (gabapentin 300 mg Cap) 1 Capsules By Mouth 3 times a day for 14 Days. Refills: 0. ketorolac (ketorolac 10 mg Tab) 1 Tablets By Mouth every 8 hours for 3 Days. Refills: 0. oxycodone (oxyCODONE 5 mg Tab) 1-2 tab(s) Oral q4hr; as needed for pain. Refills: 0. Medications to Continue Taking That Have Changed [facility] [address], [address] [place], [place] [id number], [phone] START: celecoxib (CeleBREX 100 mg Cap) 1 Capsules By Mouth 2 times a day. start after finishing ketorolac. Refills: 0. Medications to Continue with No Changes Other Medications albuterol (Albuterol (Eqv-ProAir HFA)) ascorbic acid (Vitamin C) ashwagandha ergocalciferol (Vitamin D) esomeprazole (Nexium 20 mg Cap-DR) 1 Capsules By Mouth every day. furosemide (furosemide 20 mg Tab) 1 Tablets By Mouth every day as needed edema. levothyroxine (levothyroxine 75 mcg (0.075 mg) Tab) 1 Tablets By Mouth every day. magnesium glycinate montelukast (montelukast 10 mg Tab) 1 Tablets By Mouth every day. tamoxifen (tamoxifen 20 mg Tab) 1 Tablets By Mouth every day., breast cancer Comment:[facility] Recordon [id number] OR PACU I RecordMain OR PACU I Record PACU Phase I Document Type FT Summary Primary Physician: Ba Romero DO Finalized Date/Time: 02/28/25 10:16:55 Pt. Name: MALIA COOK/Sex: 1960 Female Med Rec #: [id number] Physician: Ba Romero DO Financial #: [id number] Pt. Type: A Room/Bed: Admit/Disch: 02/28/25 05:37:08 - Institution: Case Times PACU I FT Pre-Care Text: Identifies barriers to communication and implements measures to provide psychological support Develops individualized plan of care, and ensures continuity of care Maintains patient's dignity and privacy, and maintains patient confidentiality Identifies and reports philosophical, cultural, and spiritual beliefs and values Identifies individual values and wishes concerning care Implements aseptic technique, and administers prescribed antibiotic therapy and immunizing agents as ordered Evaluates postoperative tissue perfusion Implements thermoregulation measures, and monitors body temperature Evaluates postoperative respiratory status Evaluates postoperative cardiac status Evaluates postoperative neurological status Assesses pain control, collaborated in initiating patient-controlled analgesia and implements alternative methods of pain control Verifies allergies, administers prescribed medications and solutions, evaluates response to medications Entry 1 In PACU I 02/28/25 09:26:00 Discharge from PACU 02/28/25 09:56:00 I Outcomes Met? Yes Last Modified By: Anjelica Vogel I 02/28/25 10:16:41 Post-Care Text: The patient demonstrates knowledge of the expected response to the operative or invasive procedure The patient's care is consistent with the individualized perioperative plan of care The patient's rightto privacy is maintained The patient's value system, lifestyle, ethnicity, and culture are considered, respected, and incorporated into the perioperative plan of care The patient participates in decisions affecting his or her perioperative plan of care The patient is free from signs and symptoms of infection The patient has wound/tissue perfusion consistent with or improved from baseline levels established preoperatively The patient is at or returning to normothermia at the conclusion of the immediate postoperative period The patient's respiratory function is consistent with or improved from baseline levels established preoperativelyThe patient's cardiovascular status is consistent with or improved from baseline levels established preoperatively The patient's cardiovascular status is consistent with or improved from baseline levels established preoperatively The patient demonstrates and/or reports adequate pain control throughout the perioperative period The patient received appropriate medication(s), safely administered during the perioperativeperiod Acuity Level PACU I FT Entry 1 Start Time 02/28/25 09:26:00 Stop Time 02/28/25 09:56:00 Acuity Level Acuity Level I Last Modified By: Anjelica Vogel I 02/28/25 10:16:52 Finalized By: Anjelica Vogel I Document Signatures Signed By: Anjelica Vogel I 02/28/25 10:16[facility] II Recordon [id number] OR PACU II RecordMain OR PACU II Record PACU Phase II Document Type FT Summary Primary Physician: Ba Romero DO Finalized Date/Time: 02/28/25 14:00:22 Pt. Name: MALIA COOK /Sex: 1960 Female Med Rec #: [id number] Physician: Ba Romero DO Financial #: [id number] Pt. Type: A Room/Bed: [facility] Admit/Disch: 02/28/25 05:37:08 - Institution: Case Times PACU II FT Pre-Care Text: Identifies barriers to communication and implements measures to provide psychological support and determines knowledge level Develops individualized plan of care, and ensures continuity of care Maintains patient's dignity and privacy, and maintains patient confidentiality Identifies and reports philosophical, cultural, and spiritual beliefs and values Identifies individual values and wishes concerning care administers prescribed antibiotic therapy and immunizing agents as ordered, Evaluates postoperative tissue perfusion Implements thermoregulation measures, and monitors body temperature Evaluates postoperative respiratory statusEvaluates postoperative cardiac status Evaluates postoperative neurological status Assesses pain control, collaborated in initiating patient-controlled analgesia and implements alternative methods of pain control Verifies allergies, administers prescribed medications and solutions, evaluates response to medications Entry 1 In PACU II 02/28/25 10:00:00 Discharge from PACU 02/28/25 12:30:00 II Outcomes Met? Yes Last Modified By: Silvia Godoy RN 02/28/25 14:00:20 Post-Care Text: The patient demonstrates knowledge of the expected response to the operative or invasive procedure The patient's care is consistent with the individualized perioperative plan of care The patient's rightto privacy is maintained The patient's value system, lifestyle, ethnicity, and culture are considered, respected, and incorporated into the perioperative plan of care The patient participates in decisions affecting his or her perioperative plan of care. The patient is free from signs and symptoms of infection The patient has wound/tissue perfusion consistent with or improved from baseline levels established preoperatively The patient is at or returning to normothermia at the conclusion of the immediate postoperative period The patient's respiratory function is consistent with or improved from baseline levels established preoperativelyThe patient's cardiovascular status is consistent with or improved from baseline levels established preoperatively The patient's neurological status is consistent with or improved from baseline levels established preoperatively The patient demonstrates and/or reports adequate pain control throughout the perioperative period The patient received appropriate medication(s), safely administered during the perioperativeperiod Finalized By: Silvia Godoy RN Document Signatures Signed By: Silvia Godoy RN 02/28/25 14:00[facility] [place] [facility] Preoperative Recordon [id number] OR Preoperative RecordMain OR Preoperative Record PreOp Document Type FT Summary Primary Physician: Ba Romero DO Finalized Date/Time: 02/28/25 07:44:57 Pt. Name: MALIA COOK /Sex: 1960 Female Med Rec #: [id number] Physician: Ba Romero DO Financial #: [id number] Pt. Type: Room/Bed: [place] [address] Admit/Disch: 02/28/25 05:37:08 - Institution: Case Times PreOp FT Pre-Care Text: Verifies consent for planned procedure, identifies individual values and wishes concerning care, includes family members in perioperative teaching Entry 1 Patient Times. In Pre Surgery 02/28/25 06:00:00 Out Pre Surgery 02/28/25 07:02:00 Outcomes Met? Yes Last Modified By: Mattie Martinez 02/28/25 07:44:56 Post-Care Text: The patient participates in decisions affecting his or her perioperative plan of care Finalized By: Mattie Martinez Document Signatures Signed By: Mattie Martinez 02/28/25 07:44NoSouthern [place] [facility] CenterOperative Reporton [id number] ReportOperative Report Patient: MALIA COOK Age: 64 years Sex: Female : 1960 Associated Diagnoses: None Author: Ba Romero DO DATE OF SURGERY: 02/28/2025 SURGEON: Ba Romero D.O. DIRECTOR OPERATING ROOM: [place] [facility] CFA PREOPERATIVE DIAGNOSIS: Advanced degenerative and posttraumatic osteoarthrosis, left knee POSTOPERATIVE DIAGNOSIS: Advanced degenerative and posttraumatic osteoarthrosis, left knee OPERATION: Left total knee arthroplasty utilizing [employer]way ANEESH robotic arm assistance ANESTHESIA: Spinal + regional block FUNERAL WORKERS: Venus Loera CRNA and Jose Roberto Clay MD IMPLANTS USED: [employer]way Triathlon Total Knee System 1. size 2 cruciate retaining cementless femur 2. Size 9 mm X3 CS polyethylene 3. Size 2 Tritanium cementless tibial baseplate 4. Size 29 mm asymmetric Tritanium cementless patella OPERATIVE INDICATIONS: Malia is a 64-year-old female who has had persistent left knee pain despite numerous conservative measures. Her pain interferes with her activities of daily living, ability to sleep at night, and quality of life. She has a history of ACL reconstruction 20 years ago. She underwent arthroscopy with removal of loose bodies and chondroplasty 12/20/2024 but unfortunately did not notice any improvement in her symptoms. She agreed to proceed with the above procedure after a discussion of the risks, benefits, complications, alternatives, and expectations. Please see office notes for further details. The patient's surgery was preplanned utilizing CT scan and Invieo software. This included the planned implant sizes and positions, bone resection, and ligament balancing. Modifications to the plan were made intraoperatively as appropriate. PROCEDURE: The correct operative site was identified and marked in the preoperative holding area. The patient was administered intravenous antibiotics in accordance with SCIP Protocol. She was also given a gram of tranexamic acid intravenously about 15 minutes prior to incision. She was transported to the Regional Anesthetic Block Room and administered a regional anesthetic nerve block by the anesthesiologist. I requested the nerve block to assist withintraoperative and postoperative pain control. She was transported to the Operating Room and administered a spinal anesthetic. She was then placedsupine on the operating room table and a well padded tourniquet was applied to the operative upper thigh. The left upper extremity was secured across the patient's torso. The operative lower extremity was then prepped and draped in the usual sterile fashion. The foot was placed into a padded sanders and secured in the Lacho knee positioner. Surgical time-out was performed with all required personnel present. The limb was exsanguinated with an Esmarch. Tourniquet was inflated to 300 mm Hg. A longitudinal incision over the anterior knee was made. Medial and lateral skin flaps were developed. Dissection was carried down through the subcutaneous layers. Medial parapatellar arthrotomy was performed and normal appearing joint fluid was encountered and suctioned. The intermeniscal ligament was then cut and soft tissue at the medial tibial plateau was peeled off of the bone with Bovie electrocautery. The fat pad was sharply excised. Tourniquet was deflated at 8 minutes and adequate perfusion was noted to return to the extremity. Areas of active bleeding were cauterized with the Bovie and Aquamantys. The tibial pins for the tibial array were placed through 2 stab incisions along the medial aspect of the proximal tibia. The tibial array was placed onto the pins and secured. The distal femoral pins for the femoral array were placed in the medial femoral condyle. The femoral array was affixed to the pins. The registration device was then placed into the distal femur just distal to the array pins along the medial femoral condyle. The tibial registration device was placed along the medial tibia distal to the planned tibial resection. The hip center, medial and lateral malleoli were registered. Registration points along the distal femur and proximal tibia were captured. Osteophytes were removed with a rongeur. Range of motion of the knee was then assessed with the computer. Preliminary ligament balancing was performed with the tensioning spoons in both flexion and extension and these values were captured by the computer. The knee had 8 degree flexion contracture and 10 degrees of varus. Adjustments to the planned resection were made to balance the ligaments. The self-retaining medial and lateral retractors were then placed and secured to the leg sanders. Bone resection was then performed with computer guidance using the saw attached to the Invieo robotic arm. Femoral cuts were made including anterior, posterior, and chamfer cuts. The tibial cut was then made in the same fashion. The resected bone fragments were removed with osteotomes and f (more content not included)...[facility] HospitalComment on above: Result Comment: Electronically Signed By: Ba Romero DO\.honorio\Date and Time Signed: 02/28/25 17:09 EDTOutpatient Surgery Discharge Instructionon 02-28-2025 Outpatient Surgery Discharge InstructionOutpatient Surgery Discharge Instruction [address] [address] Patient Discharge Instructions PERSON INFORMATION Name: MALIA COOK Date of : 1960 Current Date: 02/28/2025 07:15:36 PHYSICIANS Admitting Physician: Ba Romero DO Discharge Diagnosis: MALIA COOK has been given the following list of follow-up instructions, prescriptions, and patient education materials: IF UNABLE TO CONTACT YOUR PHYSICIAN AND YOU FEEL IT IS AN EMERGENCY, GO TO THE NEAREST EMERGENCY ROOM OR CALL [address] Champion DEBORAH K, have received the attached patient education materials/instructions and haveverbalized understanding: May we do a follow up call? Yes No I was present when discharge instructions were given Patient Signature Date Clinican/Nurse Signature Date Follow up: Pharmacy Information: You may receive a survey from [employer] asking you to rate your care experience. Your feedback is important and will help us understand what we do well and how we can improve the quality of care we provide to you, your loved ones and our community. It???s an honor to serve you. Thank you for choosing [facility] HERE ARE THE MEDICATION CHANGES THAT OCCURRED DURING YOUR HOSPITAL STAY New Medications [facility] [address], [address], [place] [id number], [phone] acetaminophen (acetaminophen 500 mg Tab) 1 Tablets By Mouth every 4 hours. Refills: 0. aspirin (aspirin 81 mg Oral EC Tab) 1 Tablets By Mouth every day for 90 Days. Refills: 0. cephalexin (Keflex 500 mg Cap) 1 Capsules By Mouth every 8 hours for 7 Days. Refills: 0. docusate (Colace 100 mg Cap) 1 Capsules By Mouth 2 times a day as needed for constipation. Refills:0. gabapentin (gabapentin 300 mg Cap) 1 Capsules By Mouth 3 times a day for 14 Days. Refills: 0. ketorolac (ketorolac 10 mg Tab) 1 Tablets By Mouth every 8 hours for 3 Days. Refills: 0. oxycodone (oxyCODONE 5 mg Tab) 1-2 tab(s) Oral q4hr; as needed for pain. Refills: 0. Medications to Continue Taking That Have Changed [facility] [address], [address] [place], [place] [phone], [phone] START: celecoxib (CeleBREX 100 mg Cap) 1 Capsules By Mouth 2 times a day. start after finishing ketorolac. Refills: 0. Medications to Continue with No Changes Other Medications albuterol (Albuterol (Eqv-ProAir HFA)) ascorbic acid (Vitamin C) ashwagandha ergocalciferol (Vitamin D) esomeprazole (Nexium 20 mg Cap-DR) 1 Capsules By Mouth every day. furosemide (furosemide 20 mg Tab) 1 Tablets By Mouth every day as needed edema. levothyroxine (levothyroxine 75 mcg (0.075 mg) Tab) 1 Tablets By Mouth every day. magnesium glycinate montelukast (montelukast 10 mg Tab) 1 Tablets By Mouth every day. tamoxifen (tamoxifen 20 mg Tab) 1 Tablets By Mouth every day., breast cancer PATIENT EDUCATION INFORMATION Instructions: [place], [place] [facility] DISCHARGE INSTRUCTIONS: TOTAL KNEE ARTHROPLASTY INCISION CARE: The bandage may be changed by your home Physical Therapist at 7 days postoperatively and worn an additional 7 days. A new Mepilex bandage should then be placed. The bandage is waterproof, so you may shower at home. Steri-strips (paper tape strips) may be applied to the incision if any slight wound separation is noted. These should remain in place for five days and then they may come off in the shower. Please notify the office if any increase in redness, tenderness, drainage, fever, or wound separation is noted beyond this point. MEDICATIONS: You may resume your home medications at the time of discharge. Arixtra and Lovenox are mild blood thinners that prevent the development of blood clots in the legs. One of these has been used during your hospitalization. After discharge home you should continue the use of two stomach coated baby Aspirin tablets daily with your largest meal for 30 days after home discharge. Please notify your doctor if you have a stomach sensitivity to Aspirin or history of previous stomach ulcers. Pain medication has been prescribed as well. You may continue to use the pain medication every fourhours as needed. Any narcotic pain medication can cause side effects including stomach upset, constipation, or light-headedness. You should not drive or operate machinery, or drink alcohol while using the narcotic pain medication. You should not use other pain medications with this prescription pain medication unless further directed by your physician. PHYSICAL THERAPY Continue the range of motion a (more content not included)...[facility] HospitalProceduralon [id number] Patient: MALIA COOK Age: 64 years Sex: Female : 1960 Associated Diagnoses: None Author: Venus Loera CRNA Procedure Nerve Block Block Type: Adductor canal block. Laterality: Left. Informed consent for anesthesia management: Anesthesia options discussed including nerve block, Description of the procedure, risks, benefits, and alternatives was provided, The patient's questions were addressed. Time out: Confirmed correct patient, procedure and site. Time: Date/Time 02/28/2025 07:04:00. Indication: Block for postoperative pain management as requested by surgeon. Anesthesia Method: IV Sedation with monitored anesthesia care, The patient remained awake and able to interact in a meaningful way throughout the procedure. Preparation: The patient was placed in the following position Supine, Continuous pulse oximetry applied, Guidance (Ultrasound used to identify anatomical landmarks, Permanent image retained, Using sterile gel, probe cleansed with antibacterial wipe.), The site was prepped with ChloraPrep. Procedure: Anesthetic Agent (Total volume: 20 ml, Ropivacaine 0.5% + 4 mg decadron), Needle was inserted without pain or parasthesia in the conscious patient, Number of attempts 1, Negative attempt at aspiration for blood, Periodic negative attempts at aspiration of blood were made as the local was injected, No pain or parathesia were elicited with injection of the anesthetic in the conscious patient, It was idetified that the correct anesthetic agent was administered to the correct site. Complications: The patient tolerated the procedure as expected.[facility] HospitalXR KNEE 1 OR 2 VIEWS LEFTon [id number] Study observation (narrative)[facility] HealthcareMT LOWER EXTREMITY W/O CONTRAST LEFTon 02-13-2025 Exam Date/Time: 02/13/2025 11:15 EDT Reason for Exam: OA LEFT KNEE Report Impression: OA left knee. CTA of the left lower extremity without intravenous contrast medium. History: OA left knee.. Technical factors: CT imaging of the left lower extremity was obtained and formatted as 2 mm contiguous axial images through the left hip, and 1 mm to as axial images through the left knee. Sagittal and coronal reconstruction of the left knee were obtained during postprocessing. Comparison: None. Findings: Left hip imaging shows no fracture, dislocation, or bone lesion. Joint space maintained. Left knee shows narrowing of medial and lateral compartments with osteophyte formation along the medial and lateral tibial plateau and femoral condyles. No fracture, dislocation, or bone lesion is identified. Remote postsurgical change medial tibial plateau and proximal tibia identified. All CT scans at this facility use dose modulation, iterative reconstruction, and/or weight based dosing when appropriate to reduce radiation dose to as low as reasonably achievable. Technical Comments: Ordering Provider: Ba Romero FINAL REPORT Dictated: 02/13/2025 5:59 pm George Stacy MD Signed (Electronic Signature): 02/13/2025 5:59 pm Signed by: George Stacy MD Transcribed by: ROJELIO Technologist: NATASHA,[facility]ARadiology, Radiologist, - 02/13/2025 Exam Date/Time: 02/13/2025 11:15 EDT Reason for Exam: OA LEFT KNEE Report Impression: OA left knee. CTA of the left lower extremity without intravenous contrast medium. History: OA left knee.. Technical factors: CT imaging of the left lower extremity was obtained and formatted as 2 mm contiguous axial images through the left hip, and 1 mm to as axial images through the left knee. Sagittal and coronal reconstruction of the left knee were obtained during postprocessing. Comparison: None. Findings: Left hip imaging shows no fracture, dislocation, or bone lesion. Joint space maintained. Left knee shows narrowing of medial and lateral compartments with osteophyte formation along the medial and lateral tibial plateau and femoral condyles. No fracture, dislocation, or bone lesion is identified. Remote postsurgical change medial tibial plateau and proximal tibia identified. All CT scans at this facility use dose modulation, iterative reconstruction, and/or weight based dosing when appropriate to reduce radiation dose to as low as reasonably achievable. Technical Comments: Ordering Provider: Ba Romero FINAL REPORT Dictated: 02/13/2025 5:59 pm George Stacy MD Signed (Electronic Signature): 02/13/2025 5:59 pm Signed by: George Stacy MD Transcribed by: ROJELIO Technologist: SOFIA KAUR HealthcareRadiology Study observation (narrative)[facility] HealthcareCT LOWER EXTREMITY W/O CONTRAST LEFTOrdered By: Radiologist Radiology on [id number] Dr. Tariff Work Phone: cT Lower Extremity w/o Contrast Lefton [id number] Lower Extremity w/o Contrast LeftExam Date/Time: 02/13/2025 11:15 EDT Reason for Exam: OA LEFT KNEE Report Impression: OA left knee. CTA of the left lower extremity without intravenous contrast medium. History: OA left knee.. Technical factors: CT imaging of the left lower extremity was obtained and formatted as 2 mm contiguous axial images through the left hip, and 1 mm to as axial images through the left knee. Sagittal and coronal reconstruction of the left knee were obtained during postprocessing. Comparison: None. Findings: Left hip imaging shows no fracture, dislocation, or bone lesion. Joint space maintained. Left knee shows narrowing of medial and lateral compartments with osteophyte formation along the medial and lateral tibial plateau and femoral condyles. No fracture, dislocation, or bone lesion is identified. Remote postsurgical change medial tibial plateau and proximal tibia identified. All CT scans at this facility use dose modulation, iterative reconstruction, and/or weight based dosing when appropriate to reduce radiation dose to as low as reasonably achievable. Technical Comments: Ordering Provider: Ba Romero FINAL REPORT Dictated: 02/13/2025 5:59 pm George Stacy MD Signed (Electronic Signature): 02/13/2025 5:59 pm Signed by: George Stacy MD Transcribed by: ROJELIO Technologist: NATASHACleveland Clinic Marymount HospitalUA WITH CULT RFLXon [id number] UA BILINegativeNegative mg/dLSac-[facility] UA BLOODNegativeNegative mg/dLS[facility] UA CLARITYClearClearSac-[facility] UA COLORColorlessAbnormalYRegionalOne Health CenterComment on above: Microscopic readings are only performed on those samples that meet specific criteria set forth by [facility] UA GLUCOSE NegativeNegative mg/dLSac-[facility] UA KETONESNegativeNegative mg/dLSac-[facility] UA LEUK ESTNegativeNegative CD:[id number]-[facility] UA NITRITENegativeNegative mg/dLSac-[facility] UA PH6.55.0 - 9.0S[facility] UA PROTEINNegativeNegative mg/dLSac[facility] UA SPEC DESC Clean CatchSac-[facility] UA SPEC GRAV1.0061.005 - 1.030[facility] UA UROBILINOGENNegativeNegative mg/dLBEAR RIVER VALLEY HOSPITAL HealthcareInterpretation and review of laboratory resultsAbPine Rest Christian Mental Health ServicesOriginal Ordering Provider: DO Ba PikeINISCHERRIEBAILEY [facility] [place] [place] HealthcareUA with Cult Rflxon [id number] (U)Colorless AbnormalYellowGeorgetown Behavioral HospitalComment on above:Result Comment: Microscopic readings are only performed on those samples that meet specific criteria set forth by [facility].Performed By: #### [id number] #### [facility] [address] [place], [place] [address]Hmmmdto (U) [Mass/Vol]NegativeNormalNegativeGeorgetown Behavioral HospitalComment on above:Performed By: #### [id number] #### [facility] [address] [place], [place] [address]Izlwowl Ql (U)NegativeNormalNegMercy Health St. [facility] Comment on above:Performed By: #### [id number] #### [facility] [address] [place], [place] [address]AY BloodNegativeNormalNegMercy Health St. [facility] Medical Center Comment on above:Performed By: #### [id number] #### [facility] [address] [place], [place] [address]OW ClarityClearNormalClearGeorgetown Behavioral HospitalComment on above:Performed By: #### [id number] #### [facility] [address] [place], [place] [address]NX Leuk EstNegativeNoBluffton Hospital Comment on above:Performed By: #### [id number] #### [facility] [address] [place], [place] [address]FI NitriteNegativeNoBluffton Hospital Comment on above:Performed By: #### [id number] #### [facility] [address] [place], [place] [address]QZ pH6.5Invalid Interpretation Code5.0-9.0[facility] HospitalComment on above:Performed By: #### [id number] #### [facility] [address] [place], [place] [address]LV ProteinNegativeNormalNegMercy Health St. [facility] Comment on above:Performed By: #### [id number] #### [facility] [address] [place], [place] [address]BA Spec Grav1.006Invalid Interpretation Code1.005-1.030[facility] HospitalComment on above:Performed By: #### [id number] #### [facility] [address] [place], [place] [address]YU UrobilinogenNegativeNormSouthern [place] Medical CenterComment on above:Performed By: #### [id number] #### [facility] [address] [place], [place] [address]Zizpysvbrecc (U) [Mass/Vol]NegativeNormalNegativeFisher R Adams Cowley Shock Trauma CenterComment on above:Performed By: #### [id number] #### [facility] [address] [place], [place] [address]EB Spec DescClean CatchNormalFisher R Adams Cowley Shock Trauma CenterComment on above:Performed By: #### [id number] #### [facility] [address] [place], [place] [address]XXMGOSIUIORcykkyr By: SYSTEM SYSTEM on [id number] Ql (U)NegativeNormalNegativemg/dLOKLAHOMA STATE UNIVERSITY [facility] UA Auto SSClarity (U)Clear (02/13/25 10:50 AM)NormalClearFTM UA Auto SSColor (U)Colorless 1 *ABN* (02/13/25 10:50 AM)Invalid Interpretation CodeYellowFT UA Auto SSComment on above:Interpretive Data: Microscopic readings are only performed on those samples that meet specific criteria set forth by [facility].Glucose Ql (U)NegativeNormalNegativemg/dLFT UA Auto SSHemoglobin Auto test strip (U) [Mass/Vol]NegativeNormalNegativemg/dLFT UA Auto SSKetones Auto test strip Ql (U)NegativeNormalNegativemg/dLFT UA Auto SSLeukocyte esterase Auto test strip Ql (U)NegativeNormalNegativeLeu/uLFT UA Auto SS Nitrite Auto test strip Ql (U)NegativeNormalNegativemg/dLOKLAHOMA STATE UNIVERSITY [facility] UA Auto SSpH (U) 6.5 *NA* (02/13/25 10:50 AM)Invalid Interpretation Code5.0 - 9.0FT UA Auto SSProtein Ql (U)NegativeNormalNegativemg/dLFT UA Auto SSSpecific gravity (U) [Rel density] 1.006 *NA* (02/13/25 10:50 AM)Invalid Interpretation Code1.005 - 1.030FT UA Auto SS Urobilinogen (U) [Mass/Vol]NegativeNormalNegativemg/dLOKLAHOMA STATE UNIVERSITY [facility] UA Auto SSURINALYSIS Ordered By: Ingrid Salvador on [id number] Spec DescClean Catch (02/13/25 10:50 AM)[facility] UA Auto SSXR KNEE 1 OR 2 VIEWS LEFTon 12-28-2024 Exam Date/Time: 12/20/2024 13:58 EDT Reason for Exam: Pain, Non Traumatic Report IMPRESSION: Interoperative fluoroscopy as discussed. CLINICAL HISTORY: Pain, Non Traumatic COMPARISON: NONE. FINDINGS: Intraoperative chondroplasty 2 images. 0.94mGy Please review operative note for additional information. Ordering Provider: Ba Romero FINAL REPORT Dictated: 12/28/2024 3:16 pm George Stacy MD Signed (Electronic Signature): 12/28/2024 3:16 pm Signed by: George Stacy MD Transcribed by: ROJELIO Technologist: [facility]ITALRad[facility], Radiologist, - 12/28/2024 Exam Date/Time: 12/20/2024 13:58 EDT Reason for Exam: Pain, Non Traumatic Report IMPRESSION: Interoperative fluoroscopy as discussed. CLINICAL HISTORY: Pain, Non Traumatic COMPARISON: NONE. FINDINGS: Intraoperative chondroplasty 2 images. 0.94mGy Please review operative note for additional information. Ordering Provider: Ba Romero FINAL REPORT Dictated: 12/28/2024 3:16 pm George Stacy MD Signed (Electronic Signature): 12/28/2024 3:16 pm Signed by: George Stacy MD Transcribed by: ROJELIO Technologist: [facility] AnthonyXR KNEE 1 OR 2 VIEWS LEFTOrdered By: Radiologist Radiology on [id number] Dr. Tariff Work Phone: XR Knee 1 or 2 Views Lefton [id number] Knee 1 or 2 Views LeftExam Date/Time: 12/20/2024 13:58 EDT Reason for Exam: Pain, Non Traumatic Report IMPRESSION: Interoperative fluoroscopy as discussed. CLINICAL HISTORY: Pain, Non Traumatic COMPARISON: NONE. FINDINGS: Intraoperative chondroplasty 2 images. 0.94mGy Please review operative note for additional information. Ordering Provider: Ba Romero FINAL REPORT Dictated: 12/28/2024 3:16 pm George Stacy MD Signed (Electronic Signature): 12/28/2024 3:16 pm Signed by: George Stacy MD Transcribed by: ROJELIO Technologist: [facility] Trauma CenterMain OR Intraoperative Recordon [id number] OR Intraoperative RecordMain OR Intraoperative Record IntraOp Document Type FT Summary Primary Physician: Ba Romero DO Finalized Date/Time: 12/21/24 09:05:20 Pt. Name: MALIA COOK Matt Munoz./Sex: 1960 Female Med Rec #: [id number] Physician: Ba Romero DO Financial #: [id number] Pt. Type: A Room/Bed: [place] [address] Admit/Disch: 12/20/24 09:57:48 - 12/20/24 15:20:00 Institution: Case Times FT Entry 1 Patient Times In Room 12/20/24 12:12:00 Out Room 12/20/24 13:41:00 Procedure Times Start 12/20/24 12:43:00 Stop 12/20/24 13:34:00 Anesthesia Times Start 12/20/24 12:12:00 Stop 12/20/24 13:41:00 Block Timeout w/ 12/20/24 11:42:00 Anesthesia Last Modified By: Hakan ARELLANO, Gladys Corona 12/20/24 13:41:22 General Comments: SAPHENOUS NERVE BLOCK BY QUEEN TORIE CRNA. ASSISTED BY Pippa DOMINGUEZ HEART RATE 70, SPO2 100% ON ROOM AIR. PATIENT TAKEN BACK TO [facility] ON CART WITH SIDE RAILS UP TO AWAIT DEPARTURE TO OR BY Saul SMITH RN. HANDOFF GIVEN TO ASU NURSE. ADAN HOFFMAN Case Attendance FT Entry 1 Entry 2 Entry 3 Case Attendee Torie MATSON CRNA, Ba Santiago DO, Molly A N. Role Performed STRATEGY ASSOCIATE Surgeon - Primary PAMELA Time In 12/20/24 12:12:00 12/20/24 12:12:00 12/20/24 12:12:00 Time Out 12/20/24 13:41:00 12/20/24 13:33:00 12/20/24 13:41:00 Procedure KNEE ARTHROSCOPY(Left) KNEE ARTHROSCOPY(Left) KNEE ARTHROSCOPY(Left) Comments DR CLAY SUPERVISING Last Modified By: Hakan ARELLANO, Gladys Mcclendon RN, Gladys Adams RN 12/20/24 13:41:23 12/20/24 13:41:23 12/20/24 13:41:23 Entry 4 Entry 5 Entry 6 Case Attendee Hakan ARELLANO, Gladys Casarez RN, Sunin Peck Role Performed Computer Systems Support Specialist - Primary Computer Systems Support Specialist - Primary Scrub - Primary Time In 12/20/24 12:12:00 12/20/24 12:12:00 12/20/24 12:12:00 Time Out 12/20/24 13:41:00 12/20/24 13:41:00 12/20/24 13:41:00 Procedure KNEE ARTHROSCOPY(Left) KNEE ARTHROSCOPY(Left) KNEE ARTHROSCOPY(Left) Comments PRECEPTOR ORIENTATION Last Modified By: Hakan ARELLANO, Gladys Mcclendon RN, Gladys Adams RN 12/20/24 13:41:23 12/20/24 13:41:23 12/20/24 13:41:23 Entry 7 Case Attendee Gladys Ivy Role Performed County Adviser Time In 12/20/24 13:10:00 Time Out 12/20/24 13:30:00 Procedure KNEE ARTHROSCOPY(Left) Comments Last Modified By: Gladys Mcclendon RN 12/20/24 14:02:19 General Comments: BEBETO SOUZA AND ASIM JAMES, ARTHREX REPS, ALSO IN ATTENDANCE. ADAN HOFFMANtung nut grower Protocols FT Pre-Care Text: Implements protective measures prior to operative or invasive procedure, confirms identity before the operative or invasive procedure, verifies operative procedure, surgical site, and laterality Entry 1 Procedure(s) KNEE ARTHROSCOPY(Left) Patient Identity Birthday, ID Band Verified (select at Check, Patient least 2): Participation Consents / H and P Anesthesia Consent, Operative Site Present Verified H&P, Surgery/Procedure Marking Verified Consent Surgical Site Yes Laterality Verified Yes Verified Procedure Verified Yes Correct Patient Yes Position Verified Availability Equipment, Implant, Prep Dry Yes Verified (If Medication, X-ray Applicable) PreOp Antibiotic Yes Time Out Torie MATSON, STRATEGY ASSOCIATE, Queen Nolvia Curry, Ba Romero DO, Weisbrod RNFA, Nicole Bocanegra Mcclendon RN, Leida Campbell RN, Ana Paula Sotelo Sydney A Time Out Complete 12/20/24 12:40:00 Outcomes Met? Yes Last Modified By: Gladys Mcclendon RN 12/20/24 13:19:20 Post-Care Text: The patient is free from signs and symptoms of injury caused by extraneous objects Allergy Information FT Pre-Care Text: Verifies allergies Entry 1 Allergies Reviewed? Yes Allergies Reviewed Self/Patient With Outcomes Met? Yes Last Modified By: Gladys Mcclendon RN 12/20/24 13:04:26 Post-Care Text: The patient received appropriate medication(s) safely administered during the perioperative period Surgical Procedures FT Entry 1 Procedure Description Procedure KNEE ARTHROSCOPY Modifiers Left Surgeon Description LEFT KNEE ARHTROSCOPY, CHONDROPLASTY , INTRAOSSEOUS BIOPLASTY TO THE LEFT TIBIA Primary Procedure Yes Primary Surgeon Ba Romero DO Start 12/20/24 12:43:00 Stop 12/20/24 13:34:00 Anesthesia Type General Surgical Service Orthopedics Wound Class 1 - Clean Last Modified By: Gladys Mcclendon RN 12/20/24 14:03:36 General Case Data FT Pre-Care Text: Classifies surgical wound, implements aseptic technique, initiates traffic control Entry 1 Case Information OR OR 5 FT Case Level Level 4 Wound Class 1 - Clean Specialty Orthopedics ASA Class 3 Preop Diagnosis LEFT KNEE OSTEOARTHRITIS Postop Same As Preop Yes Postop Diagnosis LEFT KNEE OSTEOARTHRITIS Outcomes Met? Yes Last Modified By: Shaneka Garza CST 12/21/24 09:02:10 Post-Care Text: The patient is free from signs and symptoms of infection Skin Assessment (Pre Procedure) FT Pre-Care Text: Implements protective measures to prevent skin/ tissue (more content not included)...[facility] HospitalDischarge Instructionson 12-20-2024 Discharge InstructionsDischarge Instructions TITOMALIA :1960 Visit Date:12/20/2024 Inpatient Discharge Instructions Your Care Team Admitting Physician - Ba Romero DO Referring Physician - Ba Romero DO Reason for Your Visit LEFT KNEE OA Tests Performed XR Knee 1 or 2 Views Left -- Results Pending -- Please visit your patient portal for your results or contact your primary care physician. 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 What to do next Instructions From Your Doctor No qualifying data available. New Follow Up Appointments after Discharge Follow Up with aB Romero When: 01/01/2025 10:00 AM EDT Where: [address] [place] [address]- Business (1) Medications What How Much When Instructions Next Dose New acetaminophen-hydrocodone (Ames 325 mg-5 mg oral tablet) See instructions 1-2 tab(s) Oral [id number] at [facility] New aspirin (aspirin 81 mg Oral EC Tab) 1 Tablets By Mouth Every day Pickup at [facility] New celecoxib (CeleBREX 100 mg Cap) 1 Capsules By Mouth 2 times a day Pickup at [facility] New docusate (Colace 100 mg Cap) 1 Capsules By Mouth 2 times a day as needed for for constipation Pickup at [facility] Unchanged albuterol (Albuterol (Eqv-ProAir HFA)) Unchanged ascorbic acid (Vitamin C) Unchanged ashwagandha Unchanged ergocalciferol (Vitamin D) Unchanged esomeprazole (Nexium 20 mg Cap-DR) 1 Capsules By Mouth Every day Unchanged furosemide (furosemide 20 mg Tab) 1 Tablets By Mouth Every day as needed for edema Unchanged levothyroxine (levothyroxine 75 mcg (0.075 mg) Tab) 1 Tablets By Mouth Every day Unchanged magnesium glycinate Unchanged montelukast (montelukast 10 mg Tab) 1 Tablets By Mouth Every day Unchanged multivitamin (Vitamin B Complex oral capsule) Unchanged tamoxifen (tamoxifen 20 mg Tab) 1 Tablets By Mouth Every day Pharmacy Information [id number]: [address] [place], [place] [phone] Test Results No qualifying data available. Allergies Imitrex (Cognitive impairment, Hallucinations) Education Materials [place], [place] [facility] DISCHARGE INSTRUCTIONS: KNEE ARTHROSCOPY Diet Begin with a liquid diet and advance to your normal diet as tolerated. Activity You may gradually increase your activity as tolerated. Until your first post- operative visit elevate your knee higher than your heart, whenever you are sitting or lying down. Knee swelling will gradually decrease after surgery. Increased swelling is usually a sign of over-activity and should be a signal for you to be less active and apply ice as needed. Your exercise program is the zarate to successful rehabilitation of your knee. Do the exercises daily as instructed. You will receive further exercises at your next visit as needed. The possible need for Physical Therapy will then be discussed. You may bear weight on your operative leg, but you use your crutches or walker for support when ambulating. This is important for protection of your knee after surgery. Although you will find that you can walk without crutches or walker, it is not healthy for you until you regain adequate muscle strength. Use your crutches or walker until your limp is gone. You are encouraged to bend your knee as this is comfortably tolerated. Do not forcefully bend untilyou have permission by your surgeon. Driving is legal, but if you are involved in an accident, you must be able to prove that you maintained full control of your vehicle. For this reason, it is advised that you do not drive until your strength returns, generally in 1-2 weeks. Similarly, all sports activities are discouraged, at least until your first post-operative visit at which time we will discuss how and when to resume sports. Increased Pain Usually this is the result of over-activity and s (more content not included)... [facility] HospitalComment on above:Result Comment: Electronically Signed By: Emma Smith RN.honorio\Date and Time Signed: 12/20/24 14:10 EDT Inpatient Patient Summaryon [id number] Patient SummaryInpatient Patient Summary [place] [address] [facility] Clinical Discharge Instructions PERSON INFORMATION Name: MALIA COOK PHYSICIANS Admitting Physician: Ba Romero DO Attending Physician: Ba Romero DO PCP: TUCKER HAYWOOD MD Discharge Diagnosis: Comment: PATIENT EDUCATION INFORMATION Instructions: Kenia Romero - Knee Arthroscopy (Custom) Medication Leaflets: Follow up: MEDICATION LIST New Medications [facility], [address], [place] [phone], [phone] acetaminophen-hydrocodone (Ames 325 mg-5 mg oral tablet) 1-2 tab(s) Oral q4hr; as needed for pain.Refills: 0. aspirin (aspirin 81 mg Oral EC Tab) 1 Tablets By Mouth every day. Refills: 0. celecoxib (CeleBREX 100 mg Cap) 1 Capsules By Mouth 2 times a day. Refills: 0. docusate (Colace 100 mg Cap) 1 Capsules By Mouth 2 times a day as needed for constipation. Refills:0. Medications to Continue with No Changes Other Medications albuterol (Albuterol (Eqv-ProAir HFA)) ascorbic acid (Vitamin C) ashwagandha ergocalciferol (Vitamin D) esomeprazole (Nexium 20 mg Cap-DR) 1 Capsules By Mouth every day. furosemide (furosemide 20 mg Tab) 1 Tablets By Mouth every day as needed edema. levothyroxine (levothyroxine 75 mcg (0.075 mg) Tab) 1 Tablets By Mouth every day. magnesium glycinate montelukast (montelukast 10 mg Tab) 1 Tablets By Mouth every day. multivitamin (Vitamin B Complex oral capsule) tamoxifen (tamoxifen 20 mg Tab) 1 Tablets By Mouth every day., breast cancer Comment:[facility] HospitalMain OR PACU I Recordon [id number] OR PACU I RecordMain OR PACU I Record PACU Phase I Document Type FT Summary Primary Physician: Ba Romero DO Finalized Date/Time: 12/20/24 14:32:37 Pt. Name: TITOMALIA./Sex: 1960 Female Med Rec #: [id number] Physician: Ba Romero DO Financial #: [id number] Pt. Type: A Room/Bed: [facility] Admit/Disch: 12/20/24 09:57:48 - Institution: Case Times PACU I FT Pre-Care Text: Identifies barriers to communication and implements measures to provide psychological support Develops individualized plan of care, and ensures continuity of care Maintains patient's dignity and privacy, and maintains patient confidentiality Identifies and reports philosophical, cultural, and spiritual beliefs and values Identifies individual values and wishes concerning care Implements aseptic technique, and administers prescribed antibiotic therapy and immunizing agents as ordered Evaluates postoperative tissue perfusion Implements thermoregulation measures, and monitors body temperature Evaluates postoperative respiratory status Evaluates postoperative cardiac status Evaluates postoperative neurological status Assesses pain control, collaborated in initiating patient-controlled analgesia and implements alternative methods of pain control Verifies allergies, administers prescribed medications and solutions, evaluates response to medications Entry 1 In PACU I 12/20/24 13:43:00 Discharge from PACU 12/20/24 14:13:00 I Outcomes Met? Yes Last Modified By: Tejal Esposito RN 12/20/24 14:32:02 Post-Care Text: The patient demonstrates knowledge of the expected response to the operative or invasive procedure The patient's care is consistent with the individualized perioperative plan of care The patient's rightto privacy is maintained The patient's value system, lifestyle, ethnicity, and culture are considered, respected, and incorporated into the perioperative plan of care The patient participates in decisions affecting his or her perioperative plan of care The patient is free from signs and symptoms of infection The patient has wound/tissue perfusion consistent with or improved from baseline levels established preoperatively The patient is at or returning to normothermia at the conclusion of the immediate postoperative period The patient's respiratory function is consistent with or improved from baseline levels established preoperativelyThe patient's cardiovascular status is consistent with or improved from baseline levels established preoperatively The patient's cardiovascular status is consistent with or improved from baseline levels established preoperatively The patient demonstrates and/or reports adequate pain control throughout the perioperative period The patient received appropriate medication(s), safely administered during the perioperativeperiod Acuity Level PACU I FT Entry 1 Start Time 12/20/24 13:43:00 Stop Time 12/20/24 14:13:00 Acuity Level Acuity Level I Last Modified By: Tejal Esposito RN 12/20/24 14:32:24 Finalized By: Tejal Esposito RN Document Signatures Signed By: Tejal Esposito RN 12/20/24 14:32[facility] HospitalMain OR PACU II Recordon [id number] OR PACU II RecordMain OR PACU II Record PACU Phase II Document Type FT Summary Primary Physician: Ba Romero DO Finalized Date/Time: 12/20/24 15:23:43 Pt. Name: TITOMALIA./Sex: 1960 Female Med Rec #: [id number] Physician: Ba Romero DO Financial #: [id number] Pt. Type: A Room/Bed: [place] [address] Admit/Disch: 12/20/24 09:57:48 - Institution: Case Times PACU II FT Pre-Care Text: Identifies barriers to communication and implements measures to provide psychological support and determines knowledge level Develops individualized plan of care, and ensures continuity of care Maintains patient's dignity and privacy, and maintains patient confidentiality Identifies and reports philosophical, cultural, and spiritual beliefs and values Identifies individual values and wishes concerning care administers prescribed antibiotic therapy and immunizing agents as ordered, Evaluates postoperative tissue perfusion Implements thermoregulation measures, and monitors body temperature Evaluates postoperative respiratory statusEvaluates postoperative cardiac status Evaluates postoperative neurological status Assesses pain control, collaborated in initiating patient-controlled analgesia and implements alternative methods of pain control Verifies allergies, administers prescribed medications and solutions, evaluates response to medications Entry 1 In PACU II 12/20/24 14:15:00 Discharge from PACU 12/20/24 15:20:00 II Outcomes Met? Yes Last Modified By: Emma Smith RN 12/20/24 15:23:41 Post-Care Text: The patient demonstrates knowledge of the expected response to the operative or invasive procedure The patient's care is consistent with the individualized perioperative plan of care The patient's rightto privacy is maintained The patient's value system, lifestyle, ethnicity, and culture are considered, respected, and incorporated into the perioperative plan of care The patient participates in decisions affecting his or her perioperative plan of care. The patient is free from signs and symptoms of infection The patient has wound/tissue perfusion consistent with or improved from baseline levels established preoperatively The patient is at or returning to normothermia at the conclusion of the immediate postoperative period The patient's respiratory function is consistent with or improved from baseline levels established preoperativelyThe patient's cardiovascular status is consistent with or improved from baseline levels established preoperatively The patient's neurological status is consistent with or improved from baseline levels established preoperatively The patient demonstrates and/or reports adequate pain control throughout the perioperative period The patient received appropriate medication(s), safely administered during the perioperativeperiod Finalized By: Emma Smith RN Document Signatures Signed By: Emma Smith RN 12/20/24 15:23[facility] Preoperative Recordon [id number] OR Preoperative RecordMain OR Preoperative Record PreOp Document Type FT Summary Primary Physician: Ba Romero DO Finalized Date/Time: 12/20/24 13:21:12 Pt. Name: MALIA COOK/Sex: 1960 Female Med Rec #: [id number] Physician: Ba Romero DO Financial #: [id number] Pt. Type: A Room/Bed: [place] [address] Admit/Disch: 12/20/24 09:57:48 - Institution: Case Times PreOp FT Pre-Care Text: Verifies consent for planned procedure, identifies individual values and wishes concerning care, includes family members in perioperative teaching Entry 1 Patient Times. In Pre Surgery 12/20/24 10:00:00 Out Pre Surgery 12/20/24 12:10:00 Outcomes Met? Yes Last Modified By: Gladys Mcclendon RN 12/20/24 13:21:11 Post-Care Text: The patient participates in decisions affecting his or her perioperative plan of care Finalized By: Gladys Mcclendon RN Document Signatures Signed By: Gladys Mcclendon RN 12/20/24 13:21NoSouthern [facility] CenterOperative Report on 20-37-1030Cjzvphggs ReportOperative Report Patient: MALIA COOK Age: 64 years Sex: Female : 1960 Associated Diagnoses: None Author: Ba Romero DO DATE OF SURGERY: 12/20/2024 SURGEON: Ba Romero D.O. DIRECTOR OPERATING ROOM: PAMELA Burton PREOPERATIVE DIAGNOSIS: Medial meniscus tear, posttraumatic degenerative osteoarthrosis, subchondral bone edema medial tibial plateau, left knee POSTOPERATIVE DIAGNOSIS: Advanced posttraumatic degenerative osteoarthrosis, loose body, subchondral bone edema medial tibial plateau, left knee PROCEDURE: 1. Examination under anesthesia, left knee 2. Left knee diagnostic arthroscopy 3. Arthroscopic removal of loose body 4. Arthroscopic chondroplasty to the patellofemoral, medial, and lateral compartments 5. Intraosseous Bioplasty medial tibial plateau 6. Physician use of intraoperative fluoroscopy ANESTHESIA: General + regional block ANESTHESIOLOGIST: Queen Torie CRNA and Jose Roberto Clay MD OPERATIVE INDICATIONS: Malia is a 64-year-old female who has a history of ACL reconstruction to the left knee about 20 years ago. She has developed progressively worsening pain over time. She failed conservative measures. MRI was consistent with subchondral edema in the medial tibial plateau, possible tearing of the medial meniscus, and intact ACL graft. She agreed to proceed with the above procedure after a discussion of the risks, benefits, complications, alternatives, and expectations. Please see office notes for further details. PROCEDURE IN DETAIL: The correct operative site was identified and marked in the preoperative holding area. The patient was given 1 g of tranexamic acid intravenously. The patient was transported to the regional block room and administered a regional anesthetic nerve block by the anesthesiologist. I requested the regional block to assist with intraoperative and postoperative pain control. The patient was transported to the operating room and placed supine on the operating table. The patient was administered generalanesthetic. After adequate anesthesia was obtained, a well-padded tourniquet was applied to the operative upper thigh. Surgical timeout was performed with all required personnel present. The knee was examined and found to have maintained flexion and extension, no patellar instability, grade 1 Bora's with a firm endpoint, grade 1 anterior drawer with a firm endpoint, negative posterior drawer, no varus or valgus instability at 0 and 30 degrees. The operative lower extremity was placed into the arthroscopic leg sanders and the nonoperative lower extremity was placed onto the padded well leg sanders. The foot of the table was dropped. The operative lower extremity was prepped and draped in the usual sterile fashion. A small stab incision was made at the middle third of the tibia. A drill was used to open the near cortex of the tibia and a Jamshidi was placed into the tibial canal through the prepared hole. Syringe was connected to the Jamshidi and 30 mL of bone marrow aspirate was obtained. A second syringe was connected and 20 mL of bone marrow aspirate was obtained. Both syringes were transferred to the Epuramat centrifuge and 3 mL of BMAC was produced. The BMAC was transferred to the surgical fieldsterilely. The limb was exsanguinated with an Esmarch and the tourniquet was inflated to 300 mmHg. A standard anterolateral portal was made. The arthroscope was introduced into the knee. The scope was taken medially where an anteromedial portal was established with outside-in technique using spinal needle loca lization. A hook probe was inserted and a diagnostic arthroscopy was carried out with the findings as noted below: 1. Patellofemoral compartment: Grade 4 cartilage loss along the medial patellar facet with grade 2-3 changes centrally. Trochlea had grade 3-4 changes distally. Thickened band of scar tissue present adjacent to the medial femoral condyle. No loose bodies. 2. Medial compartment: Medial meniscus was intact. Medial femoral condyle had extensive grade 4 changes with a large area of grade 2-3 changes adjacent to the intercondylar notch. Medial tibial plateau had grade 4 changes. 3. Intercondylar notch: ACL graft was mostly intact with mild fraying anteriorly. An encapsulated fragment of bone was present at the tibial insertion of the graft. PCL intact. 4. Lateral compartment: Lateral meniscus had degenerative fraying posteriorly but no tear. Lateral tibial plateau had grade 4 changes. Lateral femoral condyle had grade 4 changes anteriorly. 5. The medial and lateral gutters were free of any loose bodies or debris. Access to and visualization of the medial compartment was improved by pie- crusting the MCL with a spinal needle through the AM portal while a valgus stress was applied to the knee. There was palpablerelease to the MCL. The medial meniscus was probed along its entire length. Chondroplasty was performed to the medial femoral condyle and medi (more content not included)...[facility] HospitalComment on above:Result Comment: Electronically Signed By: Ba Romero DO\.br\Date and Time Signed: 12/20/24 15:02 EDTOutpatient Surgery Discharge Instructionon [id number] Surgery Discharge Instruction Outpatient Surgery Discharge Instruction [place] [id number] Patient Discharge Instructions PERSON INFORMATION Name: TITO MALIA Gutierrez Date of : 1960 Current Date: 12/20/2024 13:43:44 PHYSICIANS Admitting Physician: Ba Romero DO Discharge Diagnosis: MALIA COOK has been given the following list of follow-up instructions, prescriptions, and patient education materials: IF UNABLE TO CONTACT YOUR PHYSICIAN AND YOU FEEL IT IS AN EMERGENCY, GO TO THE NEAREST EMERGENCY ROOM OR CALL 911 ITITO DEBORAH K, have received the attached patient education materials/instructions and haveverbalized understanding: May we do a follow up call? Yes No I was present when discharge instructions were given Patient Signature Date Clinican/Nurse Signature Date Follow up: Pharmacy Information: You may receive a survey from [employer] asking you to rate your care experience. Your feedback is important and will help us understand what we do well and how we can improve the quality of care we provide to you, your loved ones and our community. It???s an honor to serve you. Thank you for choosing [facility] HERE ARE THE MEDICATION CHANGES THAT OCCURRED DURING YOUR HOSPITAL STAY New Medications [facility] [address], [address] [place], [place] [id number], [phone] acetaminophen-hydrocodone (Ames 325 mg-5 mg oral tablet) 1-2 tab(s) Oral q4hr; as needed for pain.Refills: 0. aspirin (aspirin 81 mg Oral EC Tab) 1 Tablets By Mouth every day. Refills: 0. celecoxib (CeleBREX 100 mg Cap) 1 Capsules By Mouth 2 times a day. Refills: 0. docusate (Colace 100 mg Cap) 1 Capsules By Mouth 2 times a day as needed for constipation. Refills:0. Medications to Continue with No Changes Other Medications albuterol (Albuterol (Eqv-ProAir HFA)) ascorbic acid (Vitamin C) ashwagandha ergocalciferol (Vitamin D) esomeprazole (Nexium 20 mg Cap-DR) 1 Capsules By Mouth every day. furosemide (furosemide 20 mg Tab) 1 Tablets By Mouth every day as needed edema. levothyroxine (levothyroxine 75 mcg (0.075 mg) Tab) 1 Tablets By Mouth every day. magnesium glycinate montelukast (montelukast 10 mg Tab) 1 Tablets By Mouth every day. multivitamin (Vitamin B Complex oral capsule) tamoxifen (tamoxifen 20 mg Tab) 1 Tablets By Mouth every day., breast cancer PATIENT EDUCATION INFORMATION Instructions: [place], [place] [facility] DISCHARGE INSTRUCTIONS: KNEE ARTHROSCOPY Diet Begin with a liquid diet and advance to your normal diet as tolerated. Activity You may gradually increase your activity as tolerated. Until your first post- operative visit elevate your knee higher than your heart, whenever you are sitting or lying down. Knee swelling will gradually decrease after surgery. Increased swelling is usually a sign of over-activity and should be a signal for you to be less active and apply ice as needed. Your exercise program is the zarate to successful rehabilitation of your knee. Do the exercises daily as instructed. You will receive further exercises at your next visit as needed. The possible need for Physical Therapy will then be discussed. You may bear weight on your operative leg, but you use your crutches or walker for support when ambulating. This is important for protection of your knee after surgery. Although you will find that you can walk without crutches or walker, it is not healthy for you until you regain adequate muscle strength. Use your crutches or walker until your limp is gone. You are encouraged to bend your knee as this is comfortably tolerated. Do not forcefully bend untilyou have permission by your surgeon. Driving is legal, but if you are involved in an accident, you must be able to prove that you maintained full control of your vehicle. For this reason, it is advised that you do not drive until your strength returns, generally in 1-2 weeks. Similarly, all sports activities are discouraged, at least until your first post-operative visit at which time we will discuss how and when to resume sports. Increased Pain Usually this is the result of over-activity and should respond well to rest, ice and elevation. If this does not provide relief, take the pain medication as directed but do not return to activity. Ifsevere pain persists despite rest, elevation and medication, contact your surgeon. You will be given a prescription for pain medication when you leave the hospital. Please inform us of any known drug allergy. If you have any problems with th (more content not included)...NormalGeorgetown Behavioral HospitalXR KNEE 1 OR 2 VIEWS LEFTon [id number] Study observation (narrative)[facility] - Chemistry and Chemistry - challengeon [id number] T4 [Mass/Vol]1.15 ng/dL0.76-1.46[facility] HospitalTSH Qn2.723 m[IU]/L0.358-3.740[facility] HospitalBMPon 03-80-1767Edxeg gap [Moles/Vol]10 mmol/LNormal6-16[facility] Behavior[facility] HospitalComment on above: Performed By: #### [id number] #### [facility] [address] [place], [place] [address]Ykihcih [Mass/Vol]9.2 mg/dLNormal8.9-11.1FMarymount HospitalComment on above:Performed By: #### [id number] #### [facility] [address] [place], [place] [address]Hitfvmpt [Moles/Vol]104 mmol/CFencre517-886YvisrtGeorgetown Behavioral HospitalComment on above:Performed By: #### [id number] #### [facility] [address] [place], [place] [address]BV1 [Moles/Vol]30 mmol/DNkmcss48-73HkfybxGeorgetown Behavioral Hospital Comment on above:Performed By: #### [id number] #### [facility] [address] [place], [place] [address]Yinttsogmo [Mass/Vol]0.7 mg/dLNormal0.5-1.3FMarymount HospitalComment on above:Performed By: #### [id number] #### [facility] [address] [place], [place] [address]Epkpwpt [Mass/Vol]108 mg/xAPkqihr26-377EfrcpxGeorgetown Behavioral HospitalComment on above:Performed By: #### [id number] #### [facility] [address] [place], [place] [address]Rstsdyvtf [Moles/Vol]3.9 mmol/LNormal3.5-5.3FMarymount HospitalComment on above:Performed By: #### [id number] #### [facility] [address] [place], [place] [address]Qrxzoh [Moles/Vol]140 mmol/STgigyo678-319GwcybhGeorgetown Behavioral HospitalComment on above:Performed By: #### [id number] #### [facility] [address] [place] [address]Qdke nitrogen [Mass/Vol]15 mg/dLNormal5-21[facility]al HospitalComment on above:Performed By: #### [id number] #### [facility] [address] [place] [address]Feva nitrogen/Creatinine [Mass ratio]21 No GubqlIldu12-67FucsreGeorgetown Behavioral HospitalComment on above:Performed By: #### [id number] #### [facility] [address] [place] [address]MOW w/ Auto Diffon 07-38-0675Javolmcpv/100 WBC (Bld)0.6 %Normal 0.0-2.0[facility] Behavioral HospitalComment on above:Performed By: #### [id number] #### [facility] [address] [place] [address]Uuwhqxjfm/Leukocytes Auto (Bld) [Pure # fraction]0.0 E9/LNormal 0.0-0.2FMarymount HospitalComment on above:Performed By: #### [id number] #### [facility] [address] [place] [address]Aojtybgbmtc (Bld) [#/Vol]0.1 E9/LNormal0.0-0.5FMarymount HospitalComment on above:Performed By: #### [id number] #### [facility] [address] [place] [address]Yupimskttzz/100 WBC (Bld)3.3 %Normal0.0-8.0[facility] HospitalComment on above:Performed By: #### [id number] #### [facility] [address] [place] [address]Odzbqjqusss distribution width (RBC) [Ratio]12.9 %Normal 10.9-14.2FMarymount HospitalComment on above:Performed By: #### [id number] #### [facility] [address] [place] [address]Iuizfgvmex (Bld) [Volume fraction]37.5 %Cfpygp31.0-46.0[facility] HospitalComment on above:Performed By: #### [id number] #### [facility] [address] [place] [address]Oacuihndft (Bld) [Mass/Vol]12.8 g/bSCkvgfe44.0-16.0[facility] HospitalComment on above:Performed By: #### [id number] #### [facility] [address] [place] [address]Zimohslpuep (Bld) [#/Vol]1.2 E9/LNormal1.0-4.0[facility] HospitalComment on above:Performed By: #### [id number] #### [facility] [address] [place] [address]Rdeaoeoodnl/100 WBC (Bld)27.2 %Cqwpsd01.0-50.0[facility] HospitalComment on above:Performed By: #### [id number] #### [facility] [address] [place] [address]QEL (RBC) [Entitic mass]33.1 bwDutorq88.0-34.0[facility] HospitalComment on above:Performed By: #### [id number] #### [facility] [address] [place] [address]ZPTG (RBC) [Mass/Vol]34.2 g/vLDgerrl30.4-36.0[facility] HospitalComment on above:Performed By: #### [id number] #### [facility] [address] [place] [address]FUA (RBC) [Entitic vol]96.9 xMYbcghy61.0-100.0[facility] HospitalComment on above:Performed By: #### [id number] #### [facility] [address] [place] [address]Hifunirzr (Bld) [#/Vol]0.4 E9/LNormal0.2-1.0[facility] HospitalComment on above:Performed By: #### [id number] #### [facility] [address] [place] [address]Rhnuicdnyny (Bld) [#/Vol]2.6 E9/LNormal2.0-7.5FMarymount HospitalComment on above:Performed By: #### [id number] #### [facility] [address] [place] [address]Vcmigvtmecm/100 WBC (Bld)60.3 %Szjcay69.0-75.0[facility] HospitalComment on above:Performed By: #### [id number] #### [facility] [address] [place] [address]Hdmcqoql491.0 E9/CDrlxac267.0-500.0[facility] Comment on above:Performed By: #### [id number] #### [facility] [address] [place] [address]Izffszsb mean volume (Bld) [Entitic vol]9.7 fLNormal6.4-10.8 [facility] HospitalComment on above:Performed By: #### [id number] #### [facility] [address] [place] [address] 07[address]RHN (Bld) [#/Vol]3.9 E12/LLow4.3-5.9[facility] Comment on above:Performed By: #### [id number] #### [facility] [address] [place] [address]JQV corrected for nucl RBC Auto (Bld) [#/Vol]4.3 E9/LNormal 4.0-11.0[facility] HospitalComment on above:Performed By: #### [id number] #### [facility] [address] [place] [address]ADQYJVYAPQjmxjhc By: SYSTEM SYSTEM on 50-23-0700Urebk gap [Moles/Vol]10 mmol/LNormal6 - 16 mEq/LRemisol ChemCalcium [Mass/Vol]9.2 mg/dL Normal8.9 - 11.1 mg/dLRemisol ChemChloride [Moles/Vol]104 mmol/WFazozh174 - 111 mmol/LRemisol ChemCO2 [Moles/Vol]30 mmol/NGvutbf54 - 31 mmol/LRemisol Chem Creatinine [Mass/Vol]0.7 mg/dLNormal0.5 - 1.3 mg/dLRemisol MnfrdIDZ87 mL/min/1.73 r7Zyezrj>=59mL/min/1.73 c6Lhpzbgv ChemGlucose [Mass/Vol]108 mg/dL Apshfa92 - 199 mg/dLRemisol ChemPotassium [Moles/Vol]3.9 mmol/LNormal3.5 - 5.3 mmol/LRemisol ChemSodium [Moles/Vol]140 mmol/FNcofoh332 - 145 mmol/LRemisol Chem Urea nitrogen [Mass/Vol]15 mg/dLNormal5 - 21 mg/dLRemisol ChemUrea nitrogen/Creatinine [Mass ratio]21 mg/ocChgm44 - 20Remisol ChemHEMATOLOGYOrdered By: SYSTEM SYSTEM on 91-04-2271Gwgsizlls/100 WBC (Bld)0.6 %Normal0.0 - 2.0 % Remisol HemeBasophils/Leukocytes Auto (Bld) [Pure # fraction]0.0 E9/LNormal0.0 - 0.2 E9/LRemisol HemeEosinophils (Bld) [#/Vol]0.1 E9/LNormal0.0 - 0.5 E9/LRemisol HemeEosinophils/100 WBC (Bld)3.3 %Normal0.0 - 8.0 %Remisol HemeErythrocyte distribution width (RBC) [Ratio]12.9 %Ishiyo38.9 - 14.2 %Remisol HemeHematocrit (Bld) [Volume fraction]37.5 %Olzouz46.0 - 46.0 %Remisol HemeHemoglobin (Bld) [Mass/Vol]12.8 g/dQIsrvmg56.0 - 16.0 gm/dLRemisol HemeLymphocytes (Bld) [#/Vol] 1.2 E9/LNormal1.0 - 4.0 E9/LRemisol HemeLymphocytes/100 WBC (Bld)27.2 %Normal 14.0 - 50.0 %Remisol HemeMCH (RBC) [Entitic mass]33.1 fjTzsbtm94.0 - 34.0 pg Remisol HemeMCHC (RBC) [Mass/Vol]34.2 g/lQOrkopn85.4 - 36.0 gm/dLRemisol HemeMCV (RBC) [Entitic vol]96.9 rVRyxlux00.0 - 100.0 fLRemisol HemeMonocytes (Bld) [#/Vol]0.4 E9/LNormal0.2 - 1.0 E9/LRemisol HemeMonocytes/100 WBC (Bld)8.6 % Normal4.0 - 14.0 %Remisol HemeNeutrophils (Bld) [#/Vol]2.6 E9/LNormal2.0 - 7.5 E9/LRemisol HemeNeutrophils/100 WBC (Bld)60.3 %Vfmhtr07.0 - 75.0 %Remisol Heme Hoqoyhyd312.0 E9/HJwqtlw189.0 - 500.0 E9/LRemisol HemePlatelet mean volume (Bld) [Entitic vol]9.7 fLNormal6.4 - 10.8 fLRemisol HemeRBC (Bld) [#/Vol]3.9 E12/LLow 4.3 - 5.9 E12/LRemisol HemeWBC corrected for nucl RBC Auto (Bld) [#/Vol]4.3 E9/L Normal4.0 - 11.0 E9/LRemisol HemeeGFRon 20-22-2859mEIT01 mL/min/1.73 c3Akwmhz >=59[facility] Trauma CenterComment on above:Performed By: #### [id number] ####[facility] [address] [place]AUST[place], [place] [address]VU Shoulder - right 2 Viewson 60-90-0342Ampgefp Result: Two views, AP/axillary right shoulder(s) taken today and saved to the permanent medical record are reviewed. Prosthesis is unchanged in position and alignment. No signs of prosthetic wear or loosening. No periprosthetic fractures.[facility] CenterRadiology Study observation (narrative) [facility] Informationon 61-88-0624Akasrlsukhwinder Glover MA 09/18/2024 1:59 PM L Inj/Asp: L knee on 2024 10:55 AM Indications: pain Details: 22 G needle Medications: 32 mg triamcinolone acetonide 32 MG Consent was given by the patient. [facility] CenterBONE DENSITY AXIAL (HIP, PELVIS, SPINE)on 51-07-1527PLUW DENSITY AXIAL (HIP, PELVIS, SPINE)EXAM: BONE DENSITY AXIAL (HIP, PELVIS, SPINE) 08/14/2024 13:59 PM TECHNIQUE: DXA scanning using a [employer] Advance bone densitometer at the [facility] was performed on 08/14/2024 13:59 PM [...] -2.8% Right Total Hip: 0.924, 0.912, -1.3% IMPRESSION: Based on BMD and WHO criteria [...] interpreted this study is a Certified Clinical Commercial Airplane Pilot by the International Society of Clinical Densitometry GABINO Roy, [facility]. [facility] CenterDXA Skeletal system.axial Views for bone densityon 47-33-7986XPZPYWIOWH: Based on BMD and WHO criteria diagnosis [...] interpreted this study is a Certified Clinical Commercial Airplane Pilot by the International Society of Clinical Densitometry GABINO Roy, CCD. RADIOLOGY EXAM: BONE DENSITY AXIAL (HIP, PELVIS, SPINE) 08/14/2024 13:59 PM TECHNIQUE: DXA scanning using a [employer] Advance bone densitometer at the [facility] was performed on 08/14/2024 13:59 PM [...] -2.8% Right Total Hip: 0.924, 0.912, -1.3% Florence Adams MD - 08/14/2024 EXAM: BONE DENSITY AXIAL (HIP, PELVIS, SPINE) 08/14/2024 13:59 PM TECHNIQUE: DXA scanning using a [employer] Advance bone densitometer at the [facility] was performed on 08/14/2024 13:59 PM [...] interpreted this study is a Certified Clinical Commercial Airplane Pilot by the International Society of Clinical Densitometry GABINO Roy, CCD. [facility]Rad[facility] observation (narrative)[facility] HospitalDXA Skeletal system.axial Views for bone densityOrdered By: Florence Le on 96-92-0811UQQCity Hospital Work Phone: xr Shoulder - right 2 Viewson 25-01-5425Gzjguhx Result: Two views, AP/axillary right shoulder(s) taken today and saved to the permanent medical record are reviewed. Prosthesis is unchanged in position and alignment. No signs of prosthetic wear or loosening. No periprosthetic fractures.[facility] Dr. TariffLee's Summit HospitalXR Shoulder - right 2 Viewson 07-25-2024 Radiology Study observation (narrative)[facility] Dr. TariffBlue [facility] Informationon [id number] Uhl, [place] 06/14/2024 7:33 PM L Inj/Asp: L knee on 06/13/2024 2:47 PM Indications: pain Details: 22 G needle Medications: 32 mg triamcinolone acetonide 32 MG [facility] 2 Viewson [id number] Result: Two views, AP/axillary right shoulder(s) taken today and saved to the permanent medical record are reviewed. Prosthesis is unchanged in position and alignment. No signs of prosthetic wear or loosening. No periprosthetic fractures.[facility] - right 2 Viewson 05-23-2024 Radiology Study observation (narrative)[facility] HospitalOperative Reporton [id number] ReportOperative Report Patient: MALIA COOK Age: 63 years Sex: Female : 1960 Associated Diagnoses: None Author: MD Dow Ahmad F Postoperative Information Date/ Time: 05/10/2024 11:45:00 Preoperative Diagnosis: Acute postoperative pain., Per surgeon request for post- op pain management. Postoperative Diagnosis: Acute postoperative pain, Per surgeon request for post- op pain management. Procedure: Interscalene nerve block. Anesthesia Method: Local, Monitored anesthesia care. Performed by: MD Dow Ahmad F. Medications: Midazolam 2 mg. Complications: None. Notes: The patient was interviewed and examined prior to the planned operation. Anesthesia options were discussed including the peripheral nerve block of the brachial plexus in the interscalene region for postoperative analgesia. This discussion included a description of the procedure, risks and benefits, as well as alternatives to the block. The patient's questions were addressed and the patientelected to proceed with the interscalene nerve block. After a timeout, the patient was placed in the recumbent position and monitored with continuous pulse oximetry, non-invasive blood pressure, and electrocardiography. Following the time-out, the patient's pertinent anatomic landmarks were identified and marked with a felt-tipped pen before the proced ure. The lateral neck and upper shoulder were prepped with CHG and sterilely draped. A 2 x 22 gauge Stimuplex needle was introduced under ultrasound guidance with a stimulator attached and operating. The patient was questioned intermittently and reported no paresthesias. With the needle held in place, and with intermittent attempts for aspiration of blood, 20 cc of 0.5% Ropivacaine was injected at 5cc intervals. Negative aspiration for blood was confirmed at every 5cc interval. Loss of twitch was observed at 0.4 mA. No signs or symptoms of intravascular or intraneural injection were evidenced. The patient tolerated the procedure well without complications. .[facility] HospitalComment on above:Result Comment: Electronically Signed By: MD Victor M, Shukri Thompson\.honorio\Date and Time Signed: 05/16/24 08:38 EDTSurgical Pathology Reporton [id number] Pathology ReportMain [facility] Medical Center [address] [facility] [place] [address]- Surgical Pathology Report Collected Date/Time: 05/10/2024 13:13 EDT Pathologist: Ankush Stiles MD Received Date/Time: 05/11/2024 07:57 EDT Ba Romero DO, DO, Jason A 07 Surgical Pathology Report - 05/15/2024 14:43 EDT - Auth (Verified) Final Diagnosis RIGHT SHOULDER, BONE AND SOFT TISSUE, RIGHT TOTAL SHOULDER ARTHROPLASTY: - Right humeral head with degenerative changes consistent with osteoarthritis. (Electronic Signature) Yan. 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 The articular surface has a round irregular indented defect measuring 2.5 x 2 cm. Cross-sectioning through the humeral head, the bony tissue has a reddish-purple discoloration. Also received in the container are multiple fragments of jacobs/pink/light yellow soft rubbery and bony tissue measuring in aggregate 4.5 x 3.5 x 2 cm. Wood Carving Lathe Operator sections are submitted in two cassettes: 1 - Soft tissue 2 - Bone after decalcification (DC) DC:[facility] Microscopic Description Microscopic examination performed unless gross only specified.[facility] HospitalComment on above:Performed By: #### [id number] #### [facility] [address] [place], [place] [address]EN SHOULDER COMPLETE RIGHTon 05-12-2024 Exam Date/Time: 05/10/2024 14:41 EDT Reason for Exam: Post Op Report IMPRESSION: NEGATIVE RIGHT POSTOPERATIVE SHOULDER ARTHROPLASTY. CLINICAL HISTORY: Post Op COMPARISON: NONE FINDINGS: 2 views. Bipolar noncemented right shoulder replacement. No fracture. No abnormal lucency bone prosthetic interface. Ordering Provider: Ba Romero FINAL REPORT Dictated: 05/12/2024 3:36 pm George Stacy MD Signed (Electronic Signature): 05/12/2024 3:36 pm Signed by: George Stacy MD Transcribed by: ROJELIO Technologist: CC, Technical Comments Radiation Dose: Ka,r in mGy = na DAP = naFTMCRadiology, Radiologist, - 05/12/2024 Exam Date/Time: 05/10/2024 14:41 EDT Reason for Exam: Post Op Report IMPRESSION: NEGATIVE RIGHT POSTOPERATIVE SHOULDER ARTHROPLASTY. CLINICAL HISTORY: Post Op COMPARISON: NONE FINDINGS: 2 views. Bipolar noncemented right shoulder replacement. No fracture. No abnormal lucency bone prosthetic interface. Ordering Provider: Ba Romero FINAL REPORT Dictated: 05/12/2024 3:36 pm George Stacy MD Signed (Electronic Signature): 05/12/2024 3:36 pm Signed by: George Stacy MD Transcribed by: ROJELIO Technologist: CC, Technical Comments Radiation Dose: Ka,r in mGy = na DAP = na [facility] HealthcareXR SHOULDER COMPLETE RIGHTOrdered By: Radiologist Radiology on [id number] Dr. Tariff Work Phone: XR Shoulder Complete Righton [id number] Shoulder Complete RightExam Date/Time: 05/10/2024 14:41 EDT Reason for Exam: Post Op Report IMPRESSION: NEGATIVE RIGHT POSTOPERATIVE SHOULDER ARTHROPLASTY. CLINICAL HISTORY: Post Op COMPARISON: NONE FINDINGS: 2 views. Bipolar noncemented right shoulder replacement. No fracture. No abnormal lucency bone prosthetic interface. Ordering Provider: Ba Romero FINAL REPORT Dictated: 05/12/2024 3:36 pm George Stacy MD Signed (Electronic Signature): 05/12/2024 3:36 pm Signed by: George Stacy MD Transcribed by: ROJELIO Technologist: CC, Technical Comments Radiation Dose: pippa Cano in mGy = na DAP = naNormalFisher R Adams [facility] Tra[facility] CenterMain OR Intraoperative Recordon [id number] OR Intraoperative RecordMain OR Intraoperative Record IntraOp Document Type FT Summary Primary Physician: Ba Romero DO Finalized Date/Time: 05/11/24 12:40:51 Pt. Name: MALIA COOK Matt CastellanoB./Sex: 1960 Female Med Rec #: [id number] Physician: Ba Romero DO Financial #: [id number] Pt. Type: A Room/Bed: [place] [address] Admit/Disch: 05/10/24 09:10:58 - 05/10/24 15:50:00 Institution: Case Times FT Entry 1 Patient Times In Room 05/10/24 12:15:00 Out Room 05/10/24 14:16:00 Procedure Times Start 05/10/24 12:52:00 Stop 05/10/24 14:09:00 Anesthesia Times Start 05/10/24 12:15:00 Stop 05/10/24 14:16:00 Block Timeout w05/10/24 11:18:00 Anesthesia Last Modified By: Mattie Martinez 05/10/24 14:22:01 General Comments: BLOCK TIME OUT AT 1118 WITH AND RENETTA Bocanegra RN ASSISTING. HEART RATE 72 BPM AND SPO2 98% ONROOM AIR. PATIENT TOLERATED WELL THEN AFTER BLOCK TRANSPORTED BACK TO [facility] ON CART WHILE WAITING TO GO BACK [facility] OR AND ATTACHED TO A MONITOR.ADAN FERREIRA. 05/11/24 Chart opened to review and send charges LRoth CSFA Case Attendance FT Entry 1 Entry 2 Entry 3 Case Attendee Edward Alonso DO, Jason A Wilhelm CST, Benjamin Role Performed Anesthesiologist Surgeon - Primary FLARE WORKER/SA Nanosystems Engineer Time In 05/10/24 12:15:00 05/10/24 12:15:00 05/10/24 12:15:00 Time Out 05/10/24 14:16:00 05/10/24 14:16:00 05/10/24 14:16:00 Procedure SHOULDER TOTAL SHOULDER TOTAL SHOULDER TOTAL ARTHROPLASTY(Right) ARTHROPLASTY(Right) ARTHROPLASTY(Right) Comments IS SUPERVISING Last Modified By: Mattie Martinez Kelsie E Burgderfer, Kelsie E 05/10/24 14:22:03 05/10/24 14:22:03 05/10/24 14:22:03 Entry 4 Entry 5 Entry 6 Case Attendee Mattie Martinez LPN, Sunni Rubalcava Role Performed Computer Systems Support Specialist - Primary Scrub - Primary Staff - Other Time In 05/10/24 12:15:00 05/10/24 12:15:00 05/10/24 12:15:00 Time Out 05/10/24 14:16:00 05/10/24 14:16:00 05/10/24 14:16:00 Procedure SHOULDER TOTAL SHOULDER TOTAL SHOULDER TOTAL ARTHROPLASTY(Right) ARTHROPLASTY(Right) ARTHROPLASTY(Right) Comments 2ND SCRUB Last Modified By: Mattie Martinez Kelsie E Burgderfer, Kelsie E 05/10/24 14:22:03 05/10/24 14:22:03 05/10/24 14:22:03 Entry 7 Case Attendee Ryann Garza Role Performed Staff - Other Time In 05/10/24 12:15:00 Time Out 05/10/24 14:16:00 Procedure SHOULDER TOTAL ARTHROPLASTY(Right) Comments 3RD SCRUB Last Modified By: Mattie Martinez 05/10/24 14:22:03 General Comments: MADELYN SMITH, IN ATTENDANCE.ADAN FERREIRA. Perioperative Protocols FT Pre-Care Text: Implements protective measures prior to operative or invasive procedure, confirms identity before the operative or invasive procedure, verifies operative procedure, surgical site, and laterality Entry 1 Procedure(s) SHOULDER TOTAL Patient Identity Birthday, ID Band ARTHROPLASTY(Right) Verified (select at Check, Patient least 2): Participation Consents / H and P Anesthesia Consent, Operative Site Present Verified H&P, Surgery/Procedure Marking Verified Consent, Transfusion Consent Surgical Site Yes Laterality Verified Yes Verified Procedure Verified Yes Correct Patient Yes Position Verified Availability Equipment, Implant, Prep Dry n/a Verified (If Medication Applicable) PreOp Antibiotic Yes Time Out Ethel POLLARD, Edward Given Participants James Pro DO, Jason A, Raghavendra QUINONES, Michelle Vazquez Kelsie E, Pradip CRAFT, Ana Paula Bernabe Sydney A, Ryann Garza Time Out Complete 05/10/24 12:51:00 Outcomes Met? Yes Last Modified By: Mattie Martinez 05/10/24 13:08:39 Post-Care Text: The patient is free from signs and symptoms of injury caused by extraneous objects Allergy Information FT Pre-Care Text: Verifies allergies Entry 1 Allergies Reviewed? Yes Allergies Reviewed Self/Patient With Outcomes Met? Yes Last Modified By: Mattie Martinez 05/10/24 12:59:49 Post-Care Text: The patient received appropriate medication(s) safely administered during the perioperative period Surgical Procedures FT Entry 1 Procedure Description Procedure SHOULDER TOTAL Modifiers Right ARTHROPLASTY Surgeon Description RIGHT REVERSE TOTAL SHOULDER ARTHROPLASTY Primary Procedure Yes Primary Surgeon Ba Romero DO Start 05/10/24 12:52:00 Stop 05/10/24 14:09:00 Anesthesia Type General Surgical Service Orthopedics Wound Class 1 - Clean Last Modified By: Mattie Martinez 05/10/24 14:22:02 General Case Data FT Pre-Care Text: Classifies surgical wound, implements aseptic technique, initiates traffic control Entry 1 Case Information OR OR 5 FT Case Level Level 6 Wound Class 1 - Clean Specialty Orthopedics ASA Class 3 Preop Diagnosis OSTEOARTHRITIS RIGHT Postop Same As Preop Yes SHOULDER Postop Diagnosis OSTEOARTHRITIS RIGHT Outcomes Met? Yes SHOULDER (more content not included)...NormalGeorgetown Behavioral HospitalABO/Rhon [id number]/RhPositiveInvalid Interpretation [facility] Comment on above:Performed By: #### [id number] #### [facility] [address] [place], [place] [address]FQR/Rh History Checkon [id number]/Rh History CheckVerified Hx Blood TypeNormalGeorgetown Behavioral HospitalComment on above:Performed By: #### [id number] #### [facility] [address] [place], [place] [address]CWXBti [id number] Gel InterpNegativeNormalGeorgetown Behavioral HospitalComment on above:Performed By: #### [id number] #### [facility] [address] [place], [place] [address]FVRVS BANKOrdered By: Candi Denton on [id number]/Rh InterpPositiveInvalid Interpretation CodeOKLAHOMA STATE [facility] [place] BB SubsectionABSC Gel Interp Negative (05/10/24 9:55 AM)NormalOKLAHOMA STATE UNIVERS[facility] [place] BB SubsectionBlood Bank ID#on [id number] Invalid Interpretation [facility] HospitalComment on above:Performed By: #### [id number] #### [facility] [address] [place], [place] [address]Fngyunjev Instructionson [id number] Instructions Discharge Instructions TITOMALIA :1960 Visit Date:05/10/2024 Inpatient Discharge Instructions Your Care Team Admitting Physician - Ba Romero DO Referring Physician - Ba Romero DO Reason for Your Visit OA RIGHT SHOULDER Tests Performed Pathology Tissue Exam -- Results Pending -- XR Shoulder Complete Right -- Results Pending -- Please visit your patient portal for your results or contact your primary care physician. This Is Your Medications List acetaminophen (acetaminophen 500 mg Tab) celecoxib (CeleBREX 100 mg Cap) cephalexin (Keflex 500 mg Cap) docusate (Colace 100 mg Cap) esomeprazole (Nexium 20 mg Cap-DR) furosemide (furosemide 20 mg Tab) ketorolac (ketorolac 10 mg Tab) levothyroxine (levothyroxine 75 mcg (0.075 mg) Tab) montelukast (montelukast 10 mg Tab) oxycodone (oxyCODONE 5 mg Tab) Procedure History LASIK - laser assisted in situ keratomileusis (2004), Sling procedure of bladder neck (2003), None (1998), None (1998), Right thoracic outlet syndrome (1984), Carpal tunnel release (1979), Repair of anterior cruciate ligament of knee joint (1979), Repair of ulnar digital nerve (1979), Abdominal hysterectomy. What to do next New Follow Up Appointments after Discharge Follow Up with Ba Romero DO, ORT When: 05/23/2024 02:30 PM EDT Where: [address] [place] [address]- Medications What How Much When Instructions Next Dose New acetaminophen (acetaminophen 500 mg Tab) 1 Tablets By Mouth Every 4 hours as needed for as needed for pain Pickup at [facility] New celecoxib (CeleBREX 100 mg Cap) 1 Capsules By Mouth 2 times a day as needed for for pain start after finishing ketorolac Pickup at [facility] New cephalexin (Keflex 500 mg Cap) 1 Capsules By Mouth Every 8 hours Duration: 7 Days Pickup at [facility] New docusate (Colace 100 mg Cap) 1 Capsules By Mouth 2 times a day as needed for for constipation Pickup at [facility] New ketorolac (ketorolac 10 mg Tab) 1 Tablets By Mouth 3 times a day Duration: 3 Days Pickup at [facility] New oxycodone (oxyCODONE 5 mg Tab) See instructions 1-2 tab(s) Oral q4hr Pickup at [facility] Unchanged esomeprazole (Nexium 20 mg Cap-DR) 1 Capsules By Mouth Every day Unchanged furosemide (furosemide 20 mg Tab) 1 Tablets By Mouth Every day as needed for edema Unchanged levothyroxine (levothyroxine 75 mcg (0.075 mg) Tab) 1 Tablets By Mouth Every day Unchanged montelukast (montelukast 10 mg Tab) 1 Tablets By Mouth Every day Pharmacy Information [facility]: [address] [place] [place], [place] [id number] [phone] Allergies Imitrex (Cognitive impairment, Hallucinations) Education Materials How to Use an Incentive Spirometer An incentive spirometer is a tool that measures how well you are filling your lungs with each breath. Learning to take long, deep breaths using this tool can help you keep your lungs clear and active. This may help to reverse or lessen your chance of developing breathing (pulmonary) problems, especially infection. You may be asked to use a spirometer: ? After a surgery. ? If you have a lung problem or a history of smoking. ? After a long period of time when you have been unable to move or be active. If the spirometer includes an indicator to show the highest number that you have reached, your health care provider or respiratory therapist will help you set a goal. Keep a log of your progress as told by your health care provider. What are the risks? ? Breathing too quickly may cause dizziness or cause you to pass out. Take your time so you do not get dizzy or light-headed. ? If you are in pain, you may need to take pain medicine before doing incentive spirometry. It is harder to take a deep breath if you are having pain. How to use your incentive spirometer 1. Sit up on the edge of your bed or on a chair. 2. Hold the incentive spirometer so that it is in an upright position. 3. Before you use the spirometer, breathe out normally. 4. Place the mouthpiece in your mouth. Make sure your lips are closed tightly around it. 5. Breathe in slowly and as deeply as you can through your mouth, causing the piston or the ball to rise toward the top of the chamber. 6. Hold your breath for 3?5 seconds, or for as long as possible. ? If the spirometer includes a middle school football coach indicator, use this to guide you in breathing. Slow down your breathing if the indicator goes above the marked areas. 7. Remove the mouthpiece from your mouth and breathe out normally. The piston or ball will return to the bottom of the chamber. 8. Rest for a few seconds, then repeat the steps 10 or more times. ? Take your time and take a few normal breaths between deep breaths so that you do not get dizzy (more content not included)...[facility] Comment on above:Result Comment: Electronically Signed By: Jackie Caldera RN\.honorio\Date and Time Signed: 05/10/24 14:22 EDTInpatient Patient Summaryon [id number] Patient SummaryInpatient Patient Summary [place] [id number] [facility] Clinical Discharge Instructions PERSON INFORMATION Name: MALIA COOK [facility]#:[id number] PHYSICIANS Admitting Physician: Ba Romero DO Attending Physician: Ba Romero DO PCP: TUCKER HAYWOOD MD Diagnosis: Comment: PATIENT EDUCATION INFORMATION Instructions: Kenia Romero - Shoulder Replacement (Custom) Medication Leaflets: Follow up: MEDICATION LIST New Medications [id number], [address] [place], [place] [id number], [phone] acetaminophen (acetaminophen 500 mg Tab) 1 Tablets By Mouth every 4 hours as needed as needed for pain. Refills: 0. celecoxib (CeleBREX 100 mg Cap) 1 Capsules By Mouth 2 times a day as needed for pain. start after finishing ketorolac. Refills: 0. cephalexin (Keflex 500 mg Cap) 1 Capsules By Mouth every 8 hours for 7 Days. Refills: 0. docusate (Colace 100 mg Cap) 1 Capsules By Mouth 2 times a day as needed for constipation. Refills:0. ketorolac (ketorolac 10 mg Tab) 1 Tablets By Mouth 3 times a day for 3 Days. Refills: 0. oxycodone (oxyCODONE 5 mg Tab) 1-2 tab(s) Oral q4hr; as needed for pain. Refills: 0. Medications to Continue with No Changes Other Medications esomeprazole (Nexium 20 mg Cap-DR) 1 Capsules By Mouth every day. furosemide (furosemide 20 mg Tab) 1 Tablets By Mouth every day as needed edema. levothyroxine (levothyroxine 75 mcg (0.075 mg) Tab) 1 Tablets By Mouth every day. montelukast (montelukast 10 mg Tab) 1 Tablets By Mouth every day. Comment:[facility] HospitalMain OR PACU I Recordon [id number] OR PACU I RecordMain OR PACU I Record PACU Phase I Document Type FT Summary Primary Physician: Ba Romero DO Finalized Date/Time: 05/10/24 15:01:11 Pt. Name: MALIA COOK /Sex: 1960 Female Med Rec #: [id number] Physician: Ba Romero DO Financial #: [id number] Pt. Type: A Room/Bed: [place] [address] Admit/Disch: 05/10/24 09:10:58 - Institution: Case Times PACU I FT Pre-Care Text: Identifies barriers to communication and implements measures to provide psychological support Develops individualized plan of care, and ensures continuity of care Maintains patient's dignity and privacy, and maintains patient confidentiality Identifies and reports philosophical, cultural, and spiritual beliefs and values Identifies individual values and wishes concerning care Implements aseptic technique, and administers prescribed antibiotic therapy and immunizing agents as ordered Evaluates postoperative tissue perfusion Implements thermoregulation measures, and monitors body temperature Evaluates postoperative respiratory status Evaluates postoperative cardiac status Evaluates postoperative neurological status Assesses pain control, collaborated in initiating patient-controlled analgesia and implements alternative methods of pain control Verifies allergies, administers prescribed medications and solutions, evaluates response to medications Entry 1 In PACU I 05/10/24 14:18:00 Discharge from PACU 05/10/24 14:48:00 I Outcomes Met? Yes Last Modified By: Nasrin Shaver RN 05/10/24 15:00:52 Post-Care Text: The patient demonstrates knowledge of the expected response to the operative or invasive procedure The patient's care is consistent with the individualized perioperative plan of care The patient's rightto privacy is maintained The patient's value system, lifestyle, ethnicity, and culture are considered, respected, and incorporated into the perioperative plan of care The patient participates in decisions affecting his or her perioperative plan of care The patient is free from signs and symptoms of infection The patient has wound/tissue perfusion consistent with or improved from baseline levels established preoperatively The patient is at or returning to normothermia at the conclusion of the immediate postoperative period The patient's respiratory function is consistent with or improved from baseline levels established preoperativelyThe patient's cardiovascular status is consistent with or improved from baseline levels established preoperatively The patient's cardiovascular status is consistent with or improved from baseline levels established preoperatively The patient demonstrates and/or reports adequate pain control throughout the perioperative period The patient received appropriate medication(s), safely administered during the perioperativeperiod Acuity Level PACU I FT Entry 1 Start Time 05/10/24 14:18:00 Stop Time 05/10/24 14:48:00 Acuity Level Acuity Level I Last Modified By: Nasrin Shaver RN 05/10/24 15:01:06 Finalized By: Nasrin Shaver RN Document Signatures Signed By: Nasrin Shaver RN 05/10/24 15:01[facility] HospitalMain OR PACU II Recordon [id number] OR PACU II RecordMain OR PACU II Record PACU Phase II Document Type FT Summary Primary Physician: Ba Romero DO Finalized Date/Time: 05/10/24 16:10:14 Pt. Name: MALIA COOK Matt Munoz./Sex: 1960 Female Med Rec #: [id number] Physician: Ba Romero DO Financial #: [id number] Pt. Type: A Room/Bed: Admit/Disch: 05/10/24 09:10:58 - Institution: Case Times PACU II FT Pre-Care Text: Identifies barriers to communication and implements measures to provide psychological support and determines knowledge level Develops individualized plan of care, and ensures continuity of care Maintains patient's dignity and privacy, and maintains patient confidentiality Identifies and reports philosophical, cultural, and spiritual beliefs and values Identifies individual values and wishes concerning care administers prescribed antibiotic therapy and immunizing agents as ordered, Evaluates postoperative tissue perfusion Implements thermoregulation measures, and monitors body temperature Evaluates postoperative respiratory statusEvaluates postoperative cardiac status Evaluates postoperative neurological status Assesses pain control, collaborated in initiating patient-controlled analgesia and implements alternative methods of pain control Verifies allergies, administers prescribed medications and solutions, evaluates response to medications Entry 1 In PACU II 05/10/24 14:50:00 Discharge from PACU 05/10/24 15:50:00 II Outcomes Met? Yes Last Modified By: Jackie Caldera RN 05/10/24 16:10:12 Post-Care Text: The patient demonstrates knowledge of the expected response to the operative or invasive procedure The patient's care is consistent with the individualized perioperative plan of care The patient's rightto privacy is maintained The patient's value system, lifestyle, ethnicity, and culture are considered, respected, and incorporated into the perioperative plan of care The patient participates in decisions affecting his or her perioperative plan of care. The patient is free from signs and symptoms of infection The patient has wound/tissue perfusion consistent with or improved from baseline levels established preoperatively The patient is at or returning to normothermia at the conclusion of the immediate postoperative period The patient's respiratory function is consistent with or improved from baseline levels established preoperativelyThe patient's cardiovascular status is consistent with or improved from baseline levels established preoperatively The patient's neurological status is consistent with or improved from baseline levels established preoperatively The patient demonstrates and/or reports adequate pain control throughout the perioperative period The patient received appropriate medication(s), safely administered during the perioperativeperiod Finalized By: Jackie Caldera RN Document Signatures Signed By: Jackie Caldear RN 05/10/24 16:10[facility]Main [facility] Preoperative Recordon [id number] OR Preoperative RecordMain OR Preoperative Record PreOp Document Type FT Summary Primary Physician: Ba Romero DO Finalized Date/Time: 05/10/24 13:00:39 Pt. Name: MALIA COOK Matt Avilez/Sex: 1960 Female Med Rec #: [id number] Physician: Ba Romero DO Financial #: [id number] Pt. Type: A Room/Bed: [place] [address] Admit/Disch: 05/10/24 09:10:58 - Institution: Case Times PreOp FT Pre-Care Text: Verifies consent for planned procedure, identifies individual values and wishes concerning care, includes family members in perioperative teaching Entry 1 Patient Times. In Pre Surgery 05/10/24 09:15:00 Out Pre Surgery 05/10/24 12:13:00 Outcomes Met? Yes Last Modified By: Mattei Martinez 05/10/24 13:00:36 Post-Care Text: The patient participates in decisions affecting his or her perioperative plan of care Finalized By: Mattie Martinez Document Signatures Signed By: Mattie Martinez 05/10/24 13:00 Mattie Martinez 05/10/24 13:00[facility]Operative Reporton [id number] Report Operative Report Patient: MALIA COOK Age: 63 years Sex: Female : 1960 Associated Diagnoses: None Author: Ba Romero DO DATE OF SURGERY: 05/10/2024 SURGEON: Ba Romero D.O. 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 Right reverse total shoulder arthroplasty (CPT code 51796) 2. Biceps tenodesis, right shoulder (CPT code 75395) ANESTHESIA: General with a regional block ANESTHESIOLOGIST: ATUL Rey and Shukri Dow MD IMPLANTS USED: Tornier Aequalis Perform Reverse system 1. 25 mm +3 mm lateralized baseplate, 35 mm x 6.5 mm central screw, three 5.0 mm peripheral screws measuring 14, 30, 30 mm 2. 36 +3 lateralized glenosphere 3. +0 mm poly insert 4. size 2+ Perform short humeral stem OPERATIVE INDICATIONS: Malia is a 63-year-old right hand dominant female who has had progressively worsening pain in the right shoulder despite conservative measures. Her pain interferes with her ADLs, ability to sleep, and quality of life. She wished to proceed with the above procedure after a discussion of the risks, benefits, complications, alternatives, and expectations. Please see office notes for further details. Presurgical planning was performed with the Qriously BlueRealm software kayla patient-specific 3D guide was created for intraoperative use. PROCEDURE: The correct operative site was identified and marked in the preoperative holding area. The patient was administered intravenous antibiotics in accordance with SCIP Protocol. She was administered 1 g of IV tranexamic acid. She was transported to the regional block room and administered a regional anesthetic nerve block by the anesthesiologist. I requested the regional block to assist with intraoperative and postoperative pain control. The patient was transported tothe Operating Room and placed supine on the operating room table. She was administered a general anesthetic. Sequential stockings were placed on the legs. She was placed into the beach chair position with allbony prominences well padded and the head secured in the padded sanders. The head of the table was elevated approximately 45 degrees. The right upper extremity was then prepped and draped in the usual sterile fashion. The extremity was draped free and placed onto a padded sterile suarez stand. Surgical time-out was performed with all required personnel present. A deltopectoral approach was utilized. An incision was made beginning at the coracoid process and extended distally towards the deltoid insertion. The skin was scored with the 10 blade and deeper dissection was continued with the bovie. Hemostasis achieved along the way with Bovie electrocautery and Aquamantys. The cephalic vein was located. The deltopectoral interval was identified and opened. The cephalic vein was retracted medially with thepectoralis. Perforating veins into the deltoid were cauterized with the bovie. Subdeltoid and subacromial adhesions were released with a Rockwell. Mccabe retractor was placed to retract the deltoid. The conjoined tendon was identified and the clavipectoral fascia was opened just lateral to the conjoined tendon. There was a small joint effusion present and the fluid was suctioned. The fluid was clear yellow and benign. The conjoined tendonwas gently retracted medially. The coracoacromial ligament was identified and the rotator interval was then opened. The bicipital sheath was opened and the biceps tendon was located. The biceps tendon was sutured to the pectoralis with two #2 FiberWire sutures. The tendon was then transected above the tenodesis site and excised proximally. The anterior circumflex vessels were cauterized with the Bovie and Aquamantys. A subscapularis peel was performed and the tendon was released from the lesser tuberosity with the bovie. #2 fiberwire tag suture was placed into the subscapularis. The anterior capsule was released from the anterior humerus with the bovie. The arm was adducted, extended, and externally rotated to deliver the proximal humerus while the anterior capsule was released. The 135 degree res ection guide was then placed against the proximal humerus and a Bovie was used to create a laurie at the humeral head for the position of the desired cut. The humeral head was then freehand cut with an oscillating saw at 30 degrees of retroversion. The head had a large depressed and avascular area consistent with radiograph and MRI findings. A metal protection plate was then placed onto the cut surface of the humerus. Attention was then turned to preparation of the glenoid. A posterior retractor was placed to retract the humeral head. Juliette retractor placed posterosuperiorly. Loose bodies were present in the ubaldo (more content not included)...[facility] HospitalComment on above:Result Comment: Electronically Signed By: Ba Romero DO\.br\Date and Time Signed: 05/10/24 17:08 EDTOutpatient Surgery Discharge Instructionon [id number] Surgery Discharge InstructionOutpatient Surgery Discharge Instruction [place] [id number] Patient Discharge Instructions PERSON INFORMATION Name: MALIA COOK Date of : 1960 Current Date: 05/10/2024 10:36:15 PHYSICIANS Admitting Physician: Ba Romero DO Discharge Diagnosis: MALIA COOK has been given the following list of follow-up instructions, prescriptions, and patient education materials: IF UNABLE TO CONTACT YOUR PHYSICIAN AND YOU FEEL IT IS AN EMERGENCY, GO TO THE NEAREST EMERGENCY ROOM OR CALL 911 ITITO DEBORAH K, have received the attached patient education materials/instructions and haveverbalized understanding: May we do a follow up call? Yes No I was present when discharge instructions were given Patient Signature Date Clinican/Nurse Signature Date Follow up: Pharmacy Information: You may receive a survey from Dottie Escudero asking you to rate your care experience. Your feedback is important and will help us understand what we do well and how we can improve the quality of care we provide to you, your loved ones and our community. It?s an honor to serve you. Thank you for choosing [facility] HERE ARE THE MEDICATION CHANGES THAT OCCURRED DURING YOUR HOSPITAL STAY New Medications [facility] [address], [address] [place] [id number], [phone] acetaminophen (acetaminophen 500 mg Tab) 1 Tablets By Mouth every 4 hours as needed as needed for pain. Refills: 0. celecoxib (CeleBREX 100 mg Cap) 1 Capsules By Mouth 2 times a day as needed for pain. start after finishing ketorolac. Refills: 0. cephalexin (Keflex 500 mg Cap) 1 Capsules By Mouth every 8 hours for 7 Days. Refills: 0. docusate (Colace 100 mg Cap) 1 Capsules By Mouth 2 times a day as needed for constipation. Refills:0. ketorolac (ketorolac 10 mg Tab) 1 Tablets By Mouth 3 times a day for 3 Days. Refills: 0. oxycodone (oxyCODONE 5 mg Tab) 1-2 tab(s) Oral q4hr; as needed for pain. Refills: 0. Medications to Continue with No Changes Other Medications esomeprazole (Nexium 20 mg Cap-DR) 1 Capsules By Mouth every day. furosemide (furosemide 20 mg Tab) 1 Tablets By Mouth every day as needed edema. levothyroxine (levothyroxine 75 mcg (0.075 mg) Tab) 1 Tablets By Mouth every day. montelukast (montelukast 10 mg Tab) 1 Tablets By Mouth every day. PATIENT EDUCATION INFORMATION Instructions: [place], [place] [facility] DISCHARGE INSTRUCTIONS: SHOULDER REPLACEMENT MEDICATIONS You will be given a prescription for pain medication. This should be taken with food as needed. This may cause stomach upset, dizziness, and possible constipation. Please notify the office if you have any medication allergies to this type of medication or if any problems develop with the medication. DRESSING CHANGES Leave your bandage in place until your follow up visit. The bandage is waterproof, so you may shower it home. Any increase in pain, temperature over 101 degrees, redness, or drainage should be reported to the office prior to your first office visit. ACTIVITY You may continue to progress activity as comfortably tolerated with your opposite arm. You may begin to use your elbow, wrist, and hand as directed in physical therapy. You should only remove your sling for bathing and to perform range of motion exercises for the hand, wrist, and elbow. Do not actively move your shoulder Continue to ice the shoulder several times per day until follow up. ANESTHESIA PRECAUTIONS You should not operate a vehicle, automobile, bicycle or motorcycle, machinery, or power tools, make any important decisions, or drink alcohol for 24 hours. It may be beneficial to have a responsible adult remain with you for your first 24 hours after surgery. You may be drowsy and light-headed. DRIVING Driving is legal, however, if you are involved in an accident, you must be able to prove that you maintained full control of your vehicle. For this reason, it is advised that you do not drive until your strength returns. PROBLEMS You should notify the office for any persistent or heavy bleeding, temperature above 101, redness, swelling, or drainage from the operative site, severe pain at the operative site, or the developmentof persistent vomiting. Ba Romero, DO [facility] [address] [place] [address] Reviewed: Medication Leaflets:[facility] HospitalXR SHOULDER COMPLETE RIGHT on [id number] Study observation (narrative)[facility] UPPER EXTREMITY W/O CONTRAST RIGHTon 04-29-2024 Exam Date/Time: 04/25/2024 11:20 EDT Reason for Exam: OA RIGHT SHOULDER Report IMPRESSION: Abnormal appearance of the humeral head with large areas of cortical collapse as discussed. CT Upper Extremity w/o Contrast Right HISTORY: OA RIGHT SHOULDER TECHNIQUE: CT of the right shoulder according to Tornier protocol. CONTRAST: None. All CT scans at this facility use dose modulation, iterative reconstruction, and/or weight based dosing when appropriate to reduce radiation dose to as low as reasonably achievable. COMPARISON: None RESULT: Abnormal appearance of the humeral head with large area of cortical collapse including large curvilinear fragment at the joint with underlying subchondral sclerosis. Findings are nonspecific but could be sequela of avascular necrosis, sequela of prior trauma, or sequela of advanced degenerative changes. Multiple joint bodies, especially within the subscapularis recess. Osteophytes with areas of joint space narrowing. Joint effusion. Mild to moderate degenerative changes of the acromioclavicular joint. Downsloping of the acromion with narrowing of the acromiohumeral interval. Rotator cuff muscle bulk grossly maintained with the tendons not well assessed on this study. Multiple surgical clips near the right lung apex, apparently from prior rib resection. Biapical pleural parenchymal thickening/scarring. Few small nodules within the visualized lungs, nonspecific, but probably benign infectious/inflammatory process. Degenerative changes in the partially imaged spine. Ordering Provider: Ba Romero FINAL REPORT Dictated: 04/29/2024 11:54 am Ata Barrera MD Signed (Electronic Signature): 04/29/2024 11:54 am Signed by: Ata Barrera MD Transcribed by: ROJELIO Technologist: SHALONDARadiology, Radiologist, - 04/29/2024 Exam Date/Time: 04/25/2024 11:20 EDT Reason for Exam: OA RIGHT SHOULDER Report IMPRESSION: Abnormal appearance of the humeral head with large areas of cortical collapse as discussed. CT Upper Extremity w/o Contrast Right HISTORY: OA RIGHT SHOULDER TECHNIQUE: CT of the right shoulder according to Tornier protocol. CONTRAST: None. All CT scans at this facility use dose modulation, iterative reconstruction, and/or weight based dosing when appropriate to reduce radiation dose to as low as reasonably achievable. COMPARISON: None RESULT: Abnormal appearance of the humeral head with large area of cortical collapse including large curvilinear fragment at the joint with underlying subchondral sclerosis. Findings are nonspecific but could be sequela of avascular necrosis, sequela of prior trauma, or sequela of advanced degenerative changes. Multiple joint bodies, especially within the subscapularis recess. Osteophytes with areas of joint space narrowing. Joint effusion. Mild to moderate degenerative changes of the acromioclavicular joint. Downsloping of the acromion with narrowing of the acromiohumeral interval. Rotator cuff muscle bulk grossly maintained with the tendons not well assessed on this study. Multiple surgical clips near the right lung apex, apparently from prior rib resection. Biapical pleural parenchymal thickening/scarring. Few small nodules within the visualized lungs, nonspecific, but probably benign infectious/inflammatory process. Degenerative changes in the partially imaged spine. Ordering Provider: Ba Romero FINAL REPORT Dictated: 04/29/2024 11:54 am Ata Barrera MD Signed (Electronic Signature): 04/29/2024 11:54 am Signed by: Ata Barrera MD Transcribed by: ROJELIO Technologist: GENEVIEVE BLACK HealthcareCT UPPER EXTREMITY W/O CONTRAST RIGHTOrdered By: Radiologist Radiology on [id number] Work Phone: ct Upper Extremity w/o Contrast Righton [id number] Upper Extremity w/o Contrast RightExam Date/Time: 04/25/2024 11:20 EDT Reason for Exam: OA RIGHT SHOULDER Report IMPRESSION: Abnormal appearance of the humeral head with large areas of cortical collapse as discussed. CT Upper Extremity w/o Contrast Right HISTORY: OA RIGHT SHOULDER TECHNIQUE: CT of the right shoulder according to Tornier protocol. CONTRAST: None. All CT scans at this facility use dose modulation, iterative reconstruction, and/or weight based dosing when appropriate to reduce radiation dose to as low as reasonably achievable. COMPARISON: None RESULT: Abnormal appearance of the humeral head with large area of cortical collapse including large curvilinear fragment at the joint with underlying subchondral sclerosis. Findings are nonspecific but could be sequela of avascular necrosis, sequela of prior trauma, or sequela of advanced degenerative changes. Multiple joint bodies, especially within the subscapularis recess. Osteophytes with areas of joint space narrowing. Joint effusion. Mild to moderate degenerative changes of the acromioclavicular joint. Downsloping of the acromion with narrowing of the acromiohumeral interval. Rotator cuff muscle bulk grossly maintained with the tendons not well assessed on this study. Multiple surgical clips near the right lung apex, apparently from prior rib resection. Biapical pleural parenchymal thickening/scarring. Few small nodules within the visualized lungs, nonspecific, but probably benign infectious/inflammatory process. Degenerative changes in the partially imaged spine. Ordering Provider: Ba Romero FINAL REPORT Dictated: 04/29/2024 11:54 am Ata Barrera MD Signed (Electronic Signature): 04/29/2024 11:54 am Signed by: Ata Barrera MD Transcribed by: ROJELIO Technologist: HarveyGeorgetown Behavioral HospitalABO/Rh Retypeon [id number]/Rh Retype InterpPositiveInvalid Interpretation [facility] HospitalComment on above:Performed By: #### [id number] #### [facility] [address] [place], [place] [address]RYIYA BANKOrdered By: Tamika Hurd on [id number]/Rh Retype InterpPositiveInvalid Interpretation [facility] BB SubsectionBMPon [id number] gap [Moles/Vol]11 mmol/LNormal6-16[facility] HospitalComment on above: Performed By: #### [id number] #### [facility] [address] [place], [place] [address]Atptjjj [Mass/Vol]9.7 mg/dLNormal8.9-11.1[facility] Shock Trauma CenterComment on above:Performed By: #### [id number] #### [facility] [address], [place] [address]Prrhdfbo [Moles/Vol]106 mmol/UYtcubg469-438PegvosGeorgetown Behavioral HospitalComment on above:Performed By: #### [id number] #### [facility] [address], [place] [address]YI1 [Moles/Vol]27 mmol/IIgcwvp81-47UttlqvGeorgetown Behavioral Hospital Comment on above:Performed By: #### [id number] #### [facility] [address] [place], [place] [address]Glsndvtizl [Mass/Vol]0.8 mg/dLNormal0.5-1.3FMarymount HospitalComment on above:Performed By: #### [id number] #### [facility] [address] [place] [address]Zpjzpnh [Mass/Vol]130 mg/fAExhqps86-854AoxdtjGeorgetown Behavioral HospitalComment on above:Performed By: #### [id number] #### [facility] [address] [place] [address]Johcmyyyv [Moles/Vol]3.9 mmol/LNormal3.5-5.3FMarymount HospitalComment on above:Performed By: #### [id number] #### [facility] [address] [place] [address]Ihdppw [Moles/Vol]140 mmol/UPeozgw361-221VdveceGeorgetown Behavioral HospitalComment on above:Performed By: #### [id number] #### [facility] [address] [place] [address]Ljpu nitrogen [Mass/Vol]17 mg/dLNormal5-21[facility] HospitalComment on above:Performed By: #### [id number] #### [facility] [address] [place] [address]Kfou nitrogen/Creatinine [Mass ratio]21 No LwhfmCtjx07-14YgcuseGeorgetown Behavioral HospitalComment on above:Performed By: #### [id number] #### [facility] [address] [place] [address]ZWS w/ Auto Diffon 21-06-7285Jxtesqdao/100 WBC (Bld)1.3 %Normal 0.0-2.0[facility] HospitalComment on above:Performed By: #### [id number] #### [facility] [address] [place] [address]Ibhdyewic/Leukocytes Auto (Bld) [Pure # fraction]0.0 E9/LNormal 0.0-0.2FMarymount HospitalComment on above:Performed By: #### [id number] #### [facility] [address] [place] [address]Xqqgqxvczuu (Bld) [#/Vol]0.2 E9/LNormal0.0-0.5FMarymount HospitalComment on above:Performed By: #### [id number] #### [facility] [address] [place] [address]Vuqxqxmyedp/100 WBC (Bld)4.1 %Normal0.0-8.0[facility] HospitalComment on above:Performed By: #### [id number] #### [facility] [address] [place] [address]Ieosrfvjciq distribution width (RBC) [Ratio]13.0 %Normal 10.9-14.2FMarymount HospitalComment on above:Performed By: #### [id number] #### [facility] [address] [place] [address] 079[address]Nqkstlmeem (Bld) [Volume fraction]36.3 %Maomga14.0-46.0[facility] HospitalComment on above:Performed By: #### [id number] #### [facility] [address] [place] [address]Decatwsycw (Bld) [Mass/Vol]12.5 g/iESpwinf55.0-16.0[facility] HospitalComment on above:Performed By: #### [id number] #### [facility] [address] [place] [address]Rkltcajtgyb (Bld) [#/Vol]1.2 E9/LNormal1.0-4.0[facility] HospitalComment on above:Performed By: #### [id number] #### [facility] [address] [place] [address] 235[address]Okwctfqcded/100 WBC (Bld)29.7 %Djfddy66.0-50.0[facility] HospitalComment on above:Performed By: #### [id number] #### [facility] [address] [place] [address]OOV (RBC) [Entitic mass]33.2 lzDutqgr87.0-34.0[facility] HospitalComment on above:Performed By: #### [id number] #### [facility] [address] [place] [address]UMEN (RBC) [Mass/Vol]34.3 g/uUFdazux06.4-36.0[facility] HospitalComment on above:Performed By: #### [id number] #### [facility] [address] [place] [address]BEU (RBC) [Entitic vol]96.6 eMFenyot79.0-100.0[facility] HospitalComment on above:Performed By: #### [id number] #### [facility] [address] [place] [address]Xfflkcgxb (Bld) [#/Vol]0.4 E9/LNormal0.2-1.0[facility] HospitalComment on above:Performed By: #### [id number] #### [facility] [address] [place] [address]Ltcrgbbdmiz (Bld) [#/Vol]2.2 E9/LNormal2.0-7.5FMarymount HospitalComment on above:Performed By: #### [id number] #### [facility] [address] [place] [address]Tsjphhmdrlc/100 WBC (Bld)55.1 %Kamebr39.0-75.0[facility] HospitalComment on above:Performed By: #### [id number] #### [facility] [address] [place] [address]Eqiolfgg519.0 E9/ZLyctut091.0-500.0[facility] Comment on above:Performed By: #### [id number] #### [facility] [address] [place] [address] 184[address]Nrfnvgpo mean volume (Bld) [Entitic vol]9.3 fLNormal6.4-10.8 [facility] HospitalComment on above:Performed By: #### [id number] #### [facility] [address] [place], [place] [address]MWT (Bld) [#/Vol]3.8 E12/LLow4.3-5.9[facility] Comment on above:Performed By: #### [id number] #### [facility] [address] [place], [place] [address]JGS corrected for nucl RBC Auto (Bld) [#/Vol]3.9 E9/LLow 4.0-11.0[facility] HospitalComment on above:Performed By: #### [id number] #### [facility] [address] [place], [place] [address]LKUZQNSZIKlbdiyo By: SYSTEM SYSTEM on 52-43-0301Qfgcs gap [Moles/Vol]11 mmol/LNormal6 - 16 mEq/LRemisol ChemCalcium [Mass/Vol]9.7 mg/dL Normal8.9 - 11.1 mg/dLRemisol ChemChloride [Moles/Vol]106 mmol/HSbkemy302 - 111 mmol/LRemisol ChemCO2 [Moles/Vol]27 mmol/XLntedv72 - 31 mmol/LRemisol Chem Creatinine [Mass/Vol]0.8 mg/dLNormal0.5 - 1.3 mg/dLRemisol RiqsgZSZ52 mL/min/1.73 p2Boqtxe>=59mL/min/1.73 k8Pvfqvze ChemGlucose [Mass/Vol]130 mg/dL Mokqvo71 - 199 mg/dLRemisol ChemPotassium [Moles/Vol]3.9 mmol/LNormal3.5 - 5.3 mmol/LRemisol ChemSodium [Moles/Vol]140 mmol/NBbuwdz622 - 145 mmol/LRemisol Chem Urea nitrogen [Mass/Vol]17 mg/dLNormal5 - 21 mg/dLRemisol ChemUrea nitrogen/Creatinine [Mass ratio]21 mg/sqAnti41 - 20Remisol ChemCT UPPER EXTREMITY W/O CONTRAST RIGHTon 74-91-9677Uqndyjsia Study observation (narrative) NOMS HealthcareHEMATOLOGYOrdered By: SYSTEM SYSTEM on 94-31-6323Zinleweun/100 WBC (Bld)1.3 %Normal0.0 - 2.0 %Remisol HemeBasophils/Leukocytes Auto (Bld) [Pure # fraction]0.0 E9/LNormal0.0 - 0.2 E9/LRemisol HemeEosinophils (Bld) [#/Vol]0.2 E9/LNormal0.0 - 0.5 E9/LRemisol HemeEosinophils/100 WBC (Bld)4.1 %Normal0.0 - 8.0 %Remisol HemeErythrocyte distribution width (RBC) [Ratio]13.0 %Nevqpk76.9 - 14.2 %Remisol HemeHematocrit (Bld) [Volume fraction]36.3 %Bivwhw79.0 - 46.0 % Remisol HemeHemoglobin (Bld) [Mass/Vol]12.5 g/zQOjlozq37.0 - 16.0 gm/dLRemisol HemeLymphocytes (Bld) [#/Vol]1.2 E9/LNormal1.0 - 4.0 E9/LRemisol Heme Lymphocytes/100 WBC (Bld)29.7 %Tplikl04.0 - 50.0 %Remisol HemeMCH (RBC) [Entitic mass]33.2 ggZtuvmi59.0 - 34.0 pgRemisol HemeMCHC (RBC) [Mass/Vol]34.3 g/dL Oxapvg51.4 - 36.0 gm/dLRemisol HemeMCV (RBC) [Entitic vol]96.6 lAQzvevj23.0 - 100.0 fLRemisol HemeMonocytes (Bld) [#/Vol]0.4 E9/LNormal0.2 - 1.0 E9/LRemisol HemeMonocytes/100 WBC (Bld)9.8 %Normal4.0 - 14.0 %Remisol HemeNeutrophils (Bld) [#/Vol]2.2 E9/LNormal2.0 - 7.5 E9/LRemisol HemeNeutrophils/100 WBC (Bld)55.1 % Xptoyq54.0 - 75.0 %Remisol UybhAftgmdmg351.0 E9/ZPvihdp943.0 - 500.0 E9/LRemisol HemePlatelet mean volume (Bld) [Entitic vol]9.3 fLNormal6.4 - 10.8 fLRemisol HemeRBC (Bld) [#/Vol]3.8 E12/LLow4.3 - 5.9 E12/LRemisol HemeWBC corrected for nucl RBC Auto (Bld) [#/Vol]3.9 E9/LLow4.0 - 11.0 E9/LRemisol HemeUA WITH CULT RFLXon 88-64-3127YWJRLMOUM:PRTHR:PT:URINE:ORD:TEST STRIP.AUTOMATEDNegative Negative mg/dLSac-Osage Hospital CLARITY:TYPE:PT:URINE:NOM:ClearClearSac-[facility] CLASS:TYPE:PT:URINE COLLECTION METHOD:NOM:*Clean CatchSac-Os[facility] Hospital COLOR:TYPE:PT:URINE:NOM:AUTOColorlessAbnormalYellowLee's Summit HospitalComment on above:Microscopic readings are only performed on those samples that meet specific criteria set forth by [facility] PH:LSCNC:PT:URINE:QN:TEST STRIP6.55.0 - 9.0[facility] SPECIFIC GRAVITY:RDEN:PT:URINE:QN:TEST STRIP1.0061.005 - 1.030[facility] GLUCOSE:PRTHR:PT:URINE:ORD:TEST STRIPNegativeNegative mg/dLLee's Summit Hospital HEMOGLOBIN:MCNC:PT:URINE:SEMIQN:TEST STRIP.AUTOMATEDNegativeNegative mg/dLNOKS HealthcareInterpretation and review of laboratory resultsAbPine Rest Christian Mental Health Services KETONES:PRTHR:PT:URINE:ORD:TEST STRIP.AUTOMATEDNegativeNegative mg/dLBEAR RIVER VALLEY HOSPITAL HealthcareLEUKOCYTE ESTERASE:PRTHR:PT:URINE:ORD:TEST STRIP.AUTOMATEDNegative Negative CD:[id number]'s Summit HospitalNITRITE:PRTHR:PT:URINE:ORD:TEST STRIP.AUTOMATEDNegativeNegative mg/dLNOKS Healthcare PROTEIN:PRTHR:PT:URINE:ORD:TEST STRIPNegativeNegative mg/dLNOKS Healthcare UROBILINOGEN:MCNC:PT:URINE:SEMIQN:TEST STRIPNegativeNegative mg/dLNOKS HealthcareOriginal Ordering Provider: DO Ba A BrownCLINISYNCNOMS HealthcareUA with Cult Rflxon 78-25-4161Vdczagsoc Ql (U)NegativeNormalNegativeGeorgetown Behavioral HospitalComment on above:Performed By: #### [id number] #### [facility] [address] [place], [place] [address]Stalfcf (U)ClearNormalClearGeorgetown Behavioral HospitalComment on above:Performed By: #### [id number] #### [facility] [address] [place], [place] [address]Amddd (U)ColorlessAbnormalYellowGeorgetown Behavioral Hospital Comment on above:Result Comment: Microscopic readings are only performed on those samples that meet specific criteria set forth by [facility].Performed By: #### [id number] #### [facility] [address] [place], [place] [address]Chqpgnn Ql (U)NegativeNormalNegMercy Health St. [facility] Comment on above:Performed By: #### [id number] #### [facility] [address] [place], [place] [address]Eabrxjleaq Auto test strip (U) [Mass/Vol]NegativeNormalNegative [facility] HospitalComment on above:Performed By: #### [id number] #### [facility] [address] [place], [place] [address]Feecdrq Auto test strip Ql (U)NegativeNormalNegativeGeorgetown Behavioral HospitalComment on above:Performed By: #### [id number] #### [facility] [address] [place], [place] [address]Pcwhytmti esterase Auto test strip Ql (U)NegativeNormalNegative [facility] HospitalComment on above:Performed By: #### [id number] #### [facility] [address] [place], [place] [address]Cwccgfw Auto test strip Ql (U)NegativeNormalNegativeGeorgetown Behavioral HospitalComment on above:Performed By: #### [id number] #### [facility] [address] [place], [place] [address]nI (U)6.5 [pH]Invalid Interpretation Code5.0-9.0[facility] Behavior[facility] HospitalComment on above:Performed By: #### [id number] #### [facility] [address] [place], [place] [address]Togyvev Ql (U)NegativeNormalNegMercy Health St. [facility] Comment on above:Performed By: #### [id number] #### [facility] [address] [place], [place] [address]Wskqasja gravity (U) [Rel density]1.006Invalid Interpretation Code1.005-1.030[facility]al HospitalComment on above:Performed By: #### [id number] #### [facility] [address] [place] [address]Bgzbfktjglpf (U) [Mass/Vol]NegativeNormalNegMercy Health St. Vincent Medical CenterComment on above:Performed By: #### [id number] #### [facility] [address] [place], [place] [address]Xasa of Urine collection methodClean Memorial HospitalComment on above:Performed By: #### [id number] #### [facility] [address] [place] [address]NDRYKOXRMJEuyyjyi By: SYSTEM SYSTEM on 37-12-8059Gekbocdoz Ql (U)NegativeNormalNegativemg/dLOKLAHOMA STATE UN[facility] UA Auto SSClarity (U)Clear (04/25/24 10:58 AM)NormalClearFTM UA Auto SSColor (U)Colorless 1 *ABN* (04/25/24 10:58 AM)Invalid Interpretation CodeYellowOKLAHOMA STATE UNIVERSITY [facility] UA Auto SSComment on above:Interpretive Data: Microscopic readings are only performed on those samples that meet specific criteria set forth by [facility].Glucose Ql (U)NegativeNormalNegativemg/dLOKLAHOMA STATE UNIVERSITY [facility] UA Auto SSHemoglobin Auto test strip (U) [Mass/Vol]NegativeNormalNegativemg/dLFT UA Auto SSKetones Auto test strip Ql (U)NegativeNormalNegativemg/dLFT UA Auto SSLeukocyte esterase Auto test strip Ql (U)NegativeNormalNegativeLeu/uLOKLAHOMA [facility]ERS[facility] UA Auto SS Nitrite Auto test strip Ql (U)NegativeNormalNegativemg/dLOKLAHOMA STATE UNIVERS[facility] UA Auto SSpH (U) 6.5 *NA* (04/25/24 10:58 AM)Invalid Interpretation Code5.0 - 9.0[facility] UA Auto SSProtein Ql (U)NegativeNormalNegativemg/dLOKLAHOMA STATE UNIVERSITY [facility] UA Auto SSSpecific gravity (U) [Rel density] 1.006 *NA* (04/25/24 10:58 AM)Invalid Interpretation Code1.005 - 1.030[facility] UA Auto SS Urobilinogen (U) [Mass/Vol]NegativeNormalNegativemg/dLOKLAHOMA STATE UNIVERSITY [facility] UA Auto SSURINALYSIS Ordered By: Greg Demarco on 46-79-2153BO Spec DescClean Catch (04/25/24 10:58 AM)NormalOKLAHOMA STATE [facility]ERS[facility] UA Auto SSXR Chest 2 Viewson 30-35-2820WA Chest 2 ViewsExam Date/Time: 04/25/2024 11:04 EDT Reason for Exam: P.A.T. Report IMPRESSION: NO RADIOGRAPHIC EVIDENCE OF ACTIVE DISEASE IN THE CHEST. CLINICAL INFORMATION: P.A.T. COMPARISON: None available. FINDINGS: Multiple surgical clips at right apex. Osseous Structures intact. Cardiopericardial silhouette normal. Pulmonary vasculature normal. Lungs clear and hyperinflated. Ordering Provider: Dow Ahmad FINAL REPORT Dictated: 04/25/2024 5:55 pm George Stacy MD Signed (Electronic Signature): 04/25/2024 5:55 pm Signed by: George Stacy MD Transcribed by: ROJELIO Technologist: IVANA Technical Comments Radiation Dose: Ka,r in mGy = na DAP = naNormalGeorgetown Behavioral HospitaleGFRon 66-68-9042mNGI60 mL/min/1.73 m2 Normal>=59[facility] HospitalComment on above:Order Comment: Order added by Discern Expert.Performed By: #### [id number] #### [facility] [address] [place], [place] [address]CU Breast Viewson 69-96-6004VWYBSWAKCI: No specific mammographic evidence of malignancy. BI-RADS: 2: Benign Recommendation: Routine mammography. Recommendation Laterality: Left I personally viewed and interpreted these images and I have reviewed and approved this report. RADIOLOGY EXAM: MAMMO DIAGNOSTIC WITH ADRIEL LEFT, 03/22/2024 13:42 PM CLINICAL INDICATIONS AND HISTORY: annual C50.311:Malignant neoplasm of lower-inner quadrant of right breast of female, estrogen receptor positive Z17.0:Malignant neoplasm of lower-inner quadrant of right breast of female, estrogen receptor positive History of right-sided IDC status post mastectomy (2021) and left-sided breast reduction (2021, 2022). COMPARISON: MRI breast dated 02/27/2022. Mammograms dated 01/27/2023, 01/15/2022. MAMMOGRAM TECHNIQUE: 2-D MLO, XCCL, and CC views were obtained of the left breast. 3-D MLO, XCCL, and CC digital tomosynthesis images were also acquired. Computer aided detection was utilized. MAMMOGRAM FINDINGS: Breast Density: The breast has scattered areas of fibroglandular density. Prior right mastectomy. Postsurgical changes of left breast reduction. Stable benign appearing calcifications and masses are noted. There are no suspicious masses, calcifications, or architectural distortions. Venus Heaton DO - 03/22/2024 EXAM: MAMMO DIAGNOSTIC WITH ADRIEL LEFT, 03/22/2024 13:42 PM CLINICAL INDICATIONS AND HISTORY: annual C50.311:Malignant neoplasm of lower-inner quadrant of right breast of female, estrogen receptor positive Z17.0:Malignant neoplasm of lower-inner quadrant of right breast of female, estrogen receptor positive History of right-sided IDC status post mastectomy (2021) and left-sided breast reduction (2021, 2022). COMPARISON: MRI breast dated 02/27/2022. Mammograms dated 01/27/2023, 01/15/2022. MAMMOGRAM TECHNIQUE: 2-D MLO, XCCL, and CC views were obtained of the left breast. 3-D MLO, XCCL, and CC digital tomosynthesis images were also acquired. Computer aided detection was utilized. MAMMOGRAM FINDINGS: Breast Density: The breast has scattered areas of fibroglandular density. Prior right mastectomy. Postsurgical changes of left breast reduction. Stable benign appearing calcifications and masses are noted. There are no suspicious masses, calcifications, or architectural distortions. IMPRESSION IMPRESSION: No specific mammographic evidence of malignancy. BI-RADS: 2: Benign Recommendation: Routine mammography. Recommendation Laterality: Left I personally viewed and interpreted these images and I have reviewed and approved this report. City HospitalRadiology Study observation (narrative)City HospitalMG Breast ViewsOrdered By: Venus Masters on 73-16-7448FXLCity Hospital Work Phone: CNCO [phone] TextNoUniversity Hospitals [facility] 34-68-0730CSKNRzozva Visit (ORTHMN) MALIA COOK ([id number]) 1960 F Date Time Provider Department 01/21/24 8:30 AM ANDREINA ONEAL During your visit today, we recorded the following information about you: Weight Height 63.5 kg 1.6 m Andreina Oneal PA-C 01/21/2024 9:06 AM Signed Patient: [...] albuterol HFA (PROAIR HFA) 90 mcg/actuation inhaler utwfvctjyvg-nnqbblzus-zqsyffig (TRELEGY ELLIPTA) 200-62.5-25 mcg dsdv albuterol (PROVENTIL) 2.5 mg /3 mL (0.083 %) nebulizer solution esomeprazole (NEXIUM) 40 mg capsule Estradiol (ESTRACE) 0.5 mg tablet levothyroxine (SYNTHROID) 50 mcg tablet magnesium oxide 400 mg tablet Review of Systems: Reviewed and charted into [employer]. Physical Exam: PE reveals a female with [...] pulses: 2+ HIP EXAM: (more content not included)...NormalGrant [facility] [id number] (ASHLEYMN) MALIA COOK ([id number]) 1960 F Date Time Provider Department 01/21/24 ANDREINA ONEAL During your visit today, we recorded the following information about you: Andreina Oneal PA-C 01/21/2024 5:55 PM Signed Discussed [...] Dr. Jasso to determine the next steps. Andreina Oneal PA-C Allergies As of Date: 01/21/2024 Noted Allergy Reaction IMITREX (SUMATRIPTAN) 05/30/2013 1 - Mental Status Change Date Reviewed: 01/21/2024 Reviewed by: Tawana Riojas MA - Fully Assessed Primary Visit Diagnosis:Primary osteoarthritis of left knee [M17.12] Order(s):XR KNEE GENERAL 4V AP BOTH/PA BOTH/LAT/MERC LEFT [[id number]] Order #: [id number] FUTURE XR LEG FRONTAL HIP TO ANKLE MECHANICAL AXIS [[id number]] Order #: [id number] FUTURE Prescriptions as of 01/21/2024 - furosemide (LASIX) 20 mg tablet Take 20 mg by mouth once daily. - albuterol HFA (PROAIR HFA) 90 mcg/actuation inhaler Inhale 2 Puffs as instructed every 6 hours as needed. - uytdrtnjixq-yhgqyajmx-rvlgmptk (TRELEGY ELLIPTA) 200-62.5-25 mcg dsdv Inhale 1 [...] hypothyroidism [E03.9] 02/28/2014 Moderate persistent asthma without complication*03/01/2017 Excessive daytime sleepiness [G47.19] 03/01/2017 Recurrent pneumonia [J18.9] 03/01/2017 Dizziness and giddiness [R42] 06/24/2020 Right ear pain [H92.01] 06/24/2020 Encounter Status:Closed by ANDREINA ONEAL on [facility]/24[facility] conon 21-62-0224ML chest w [facility] [address] [place] [address] CT Scan Report Signed Patient: Malia Cook MR#: [id number] : 1960 Acct:[id number] Age/Sex: 63 / F ADM Date: 10/15/23 Loc: CT Room: Type: [facility] Attending Dr: JASON Reddy APRN Copies to: [...] 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 There is evidence of previous right-sided mastectomy. 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 There is evidence of previous right- sided mastectomy. Impression dictated by: Laurie Ramesh M.D.10/15/2023 4:31 PM Dictation Location: [place] [address] Transcribed By: [facility] 10/15/23 1631 Dictated By: Laurie Ramesh II, MD 10/15/23 1618 Signed By: 10/15/23 1631[facility] Physician GroupCreatinine (Bld) [Mass/Vol] Ordered By: Sola Samayoa on 85-46-7872Ueqyryebfp [Mass/Vol]1.1 mg/dL0.6-1.3 [facility] HospitalComment on above:ER/ESD physician is notified/shown all ISTAT results.Critical values may be confirmed by laboratory testing ifdeemed necessary by ER attending doctor.ISTAT XRay CREon 10-15-2023 Creatinine [Mass/Vol]1.1 mg/dLNormal0.6-1.3[facility] Physician GroupComment on above:Result Comment: ER/ESD physician is notified/shown all ISTAT results. Critical values may be confirmed by laboratory testing if deemed necessary by ER attending doctor.Performed By: #### ISCRE #### [facility] [address] [place] [address] USAISTAT GFR55.763No[facility] Physician GroupComment on above:Result Comment: PERFORMED BY: [place] [address] PATHOLOGIST MATERIAL CONTROL SPECIALIST BERENICE HORTA M.D.Performed By: #### ISCRE #### [facility] [address] [place] [address] USANo Panel InformationOrdered By: Sola Samayoa on 10-15-2023 Bedside Estimated GFR (eGFR)55.[address] [place], [place] [address]CT chest wo con high reson 37-84-2543AS chest wo con high [facility] [address] [place] [address] CT Scan Report Signed Patient: Malia Cook MR#: [id number] : 1960 Acct:[id number] Age/Sex: 62 / F ADM Date: 07/07/23 Loc: CT Room: Type: [facility] Attending Dr: JASON Reddy APRN Copies to: [...] On series 11 image 154. There is pleural- based scarring posteriorly along the left lower lobe. [...] evidence of prior reconstruction. Impression dictated by: Laurie Ramesh M.D.07/08/2023 10:53 AM Dictation Location: [place] [address] Transcribed By: [facility] 07/08/23 1053 Dictated By: Laurie Ramesh II, MD 07/08/23 1031 Signed By: 07/08/23 1053[facility] Breast Viewson 01-27-2023 IMPRESSION: No specific mammographic evidence of malignancy. BI-RADS: 2: Benign Recommendation: Routine mammography. Recommendation Laterality: Left RADIOLOGYEXAM: MAMMO DIAGNOSTIC WITH ADRIEL LEFT, 01/27/2023 14:07 PM CLINICAL INDICATIONS: Patient's [...] new suspicious masses, calcifications, or architectural distortions. Gladys Mathias DO - 01/27/2023 EXAM: MAMMO DIAGNOSTIC WITH ADRIEL LEFT, 01/27/2023 14:07 PM CLINICAL INDICATIONS: Patient's [...] Benign Recommendation: Routine mammography. Recommendation Laterality: Left City HospitalRadiology Study observation (narrative)City HospitalMG Breast ViewsOrdered By: Gladys Watters on 48-81-5652DCDCity Hospital Work Phone: BONE DENSITY AXIAL (HIP, PELVIS, SPINE)on 08-12-2022 IMPRESSION: Based on BMD and [...] interpreted this study is a Certified Clinical Commercial Airplane Pilot by the International Society of Clinical Densitometry Fam Watson DO, CCD. RADIOLOGY EXAM: BONE DENSITY AXIAL (HIP, PELVIS, SPINE) 08/12/2022 09:40 AM TECHNIQUE: DXA scanning using a [employer] Advance bone densitometer at the [facility] was performed on 08/12/2022 09:40 AM CLINICAL [...] 0.876 -1.2 Right Total Hip: 0.924 -0.7 Fam Izquierdo DO - 08/12/2022 EXAM: BONE DENSITY AXIAL (HIP, PELVIS, SPINE) 08/12/2022 09:40 AM TECHNIQUE: DXA scanning using a [employer] Advance bone densitometer at the [facility] was performed on 08/12/2022 09:40 AM CLINICAL [...] interpreted this study is a Certified Clinical Commercial Airplane Pilot by the International Society of Clinical Densitometry Fam Watson DO, CCD. City HospitalRadiology Study observation (narrative)City HospitalBONE DENSITY AXIAL (HIP, PELVIS, SPINE)Ordered By: Fam Watson on 53-59-3379LHSLakeHealth Beachwood Medical Center Work Phone: cONTINUOUS CARDIAC MONITORING STRIPon 55-90-0552FSQLakeHealth Beachwood Medical CenterCONTINUOUS CARDIAC MONITORING STRIPOrdered By: Unassigned Pacs on 12-40-0578MEVLakeHealth Beachwood Medical Center Work Phone: IMPLANT RECORD (SCANNED)on 59-57-7814VVPLakeHealth Beachwood Medical CenterNM Lymphatic vessels Views W radionuclide intra lymphaticon 25-07-9425AYULRVMMHR: Radiopharmaceutical administration for the identification of sentinel lymph nodes for subsequent intraoperative removal with gamma probe guidance. RADIOLOGY EXAM: NUC BREAST/LYMPH GLAND INJECTION, 04/10/2022 07:26 [...] gamma probe localization of draining lymphatics/lymph nodes. RADIOLOGYWright, Aj Stewart MD, PhD - 04/10/2022 EXAM: NUC BREAST/LYMPH [...] subsequent intraoperative removal with gamma probe guidance. City HospitalRadiology Study observation (narrative)City HospitalNM Lymphatic vessels Views W radionuclide intra lymphaticOrdered By: Aj Francisco on 73-64-0019AFULakeHealth Beachwood Medical Center Work Phone: SPECT Heart perfusion at rest and W stress and W radionuclide IVOrdered By: Jose Roberto Salvador on 03-18-2022% ABKNIDW75 %[facility] Work Phone: [phone]keHealth Beachwood Medical Center Work Phone: Baseline SMX05whYgTWAKindred Hospital Dayton Work Phone: Baseline LCK24arEzIQXKindred Hospital Dayton Work Phone: Baseline CQ23iojUGKRegency Hospital Cleveland East Work Phone: Baseline OU47hvvEBZRegency Hospital [facility] Work Phone: Baseline TQM269czQbRZTCity Hospital Work Phone: Baseline RAO523fkKtMZGKindred Hospital Dayton Work Phone: Body surface area Derived from formula1.67 m2OSKindred Hospital Dayton Work Phone: chronotropic dyusvysjmgkg20NTECity Hospital Work Phone: Exercise duration (min)4 minOSKindred Hospital Dayton Work Phone: Exercise duration (sec)0secOLakeHealth Beachwood Medical Center Work Phone: NM ED vol idx44.31 mL/m2OSKindred Hospital Dayton Work Phone: NM ES vol idx15.56 mL/m2[facility] Work Phone: Nuc Stress EF65 %[facility] Work Phone: Peak YXD35yaOuVMCCity Hospital Work Phone: Peak RS108yaeFPIRegency Hospital Cleveland East Work Phone: Peak GII488ycSzXPFCity Hospital Work Phone: Rate Pressure Xtnlubz26808LZF [facility] Work Phone: OS[facility] Work Phone: SPECT Heart perfusion at rest and W stress and W radionuclide Yuki 88-85-9010Qsbblusg by Jose Roberto Salvador MD on 03/18/2022 1:36 PM EDT [...] with an acquisition time of 09:53 EDT. Tlxx-gazkabTqwpsz-Gddgnz Emission Computed Tomography (SPECT) three axis myocardial perfusion images of the heart were acquired with an acquisition time of 12:11 EDT. Gated SPECT images obtained. Frame rate: 8 frames/sec. Stress prone images were obtained. Imaging system used: [facility]. Stress Findings A pharmacological stress [...] Normal: 0.00% The left ventricular perfusion is normal.City HospitalRadiology Study observation (narrative)City HospitalMR Breast - bilateral WO and W contrast IVOrdered By: Wei Robertson on 96-62-0602Ctqghahkcupjrs and review of laboratory resultsAbnoKnox Community Hospital Work Phone: [facility] Work Phone: MR Breast - bilateral WO and W contrast Yuki 24-67-6838DCEBQWVAGZ: 1. Biopsy proven malignancy in the inferior right breast as described. Continued clinical management recommended. 2. No MR evidence of malignancy in the left breast. Bi-RADS: 6: Known biopsy proven malignancy Recommendation: Surgical excision when clinically appropriate. Recommendation Laterality: Right RADIOLOGY EXAM: MRI BREAST BILATERAL WITH AND WITHOUT [...] post-processing. The images were analyzed on the ETARGET CAD software package on an independent workstation. [...] internal mammary lymphadenopathy. Extramammary soft tissues: Unremarkable. RADIOLOGYWei Robertson MD - 02/27/2022 EXAM: MRI BREAST [...] post-processing. The images were analyzed on the ETARGET CAD software package on an independent workstation. [...] excision when clinically appropriate. Recommendation Laterality: Right City HospitalRadiology Study observation (narrative)City HospitalCBC,PLATELETSon 84-91-5334Efyfmyengos distribution width (RBC) [Ratio]12.1 %10.8 - 14.9 %City HospitalHematocrit (Bld) [Volume fraction]40.7 %34.9 - 44.3 %City HospitalHemoglobin (Bld) [Mass/Vol] 13.4 g/dL11.4 - 15.2 g/dLCity HospitalInterpretation and review of laboratory resultsAbnormWayne HealthCare Main CampusH (RBC) [Entitic mass]32.2 pg25.9 - 33.9 pgCity HospitalMCHC (RBC) [Mass/Vol]32.9 g/dL31.4 - 35.9 g/dLCity HospitalMCV (RBC) [Entitic vol]97.8 rDPoqp10.6 - 97.7 [facility] Memorial HospitalPlatelet mean volume (Bld) [Entitic vol]11.5 fL8.5 - 12.2 [facility] HospitalPlatelets (Bld) [#/Vol]196 10*3/uL150 - 393 K/uL City HospitalRBC (Bld) [#/Vol]4.16 10*6/uLCity Hospital WBC (Bld) [#/Vol]4.25 10*3/uL3.99 - 11.19 K/uLU [facility] HospitalOSKindred Hospital DaytonCOMPREHENSIVE METABOLIC PANELon 00-38-1127Utuppjg [Mass/Vol]4.7 g/dL3.5 - 5.0 g/dLCity HospitalALP [Catalytic activity/Vol]72 U/L32 - 126 U/[facility] HospitalALT [Catalytic activity/Vol]18 U/L9 - 48 U/[facility] HospitalAnion gap [Moles/Vol]11 mmol/L7 - 17 mmol/[facility] HospitalAST [Catalytic activity/Vol]21 U/L10 - 39 U/[facility] HospitalBilirubin [Mass/Vol]0.5 mg/dL<1.5OSKindred Hospital DaytonCalcium [Mass/Vol]10.0 mg/dL8.6 - 10.5 mg/dLCity HospitalChloride [Moles/Vol]106 mmol/L98 - 108 mmol/[facility] HospitalCO2 [Moles/Vol]29 mmol/L21 - 31 mmol/[facility] HospitalCreatinine [Mass/Vol] 0.76 mg/dL0.50 - 1.20 mg/dLCity HospitalGFR/1.73 sq M.predicted CKD- EPI (S/P/Bld) [Vol rate/Area]88>=60 mL/min/1.59t4DPHCity Hospital Comment on above:Reported eGFR is based on the CKD-EPI 2020 equation using creatinine, age, and sex.Glucose [Mass/Vol]99 mg/dL70 - 99 mg/dLCity HospitalOsmolality Calc [Osmolality]296OSKindred Hospital DaytonPotassium [Moles/Vol]3.9 mmol/L3.5 - 5.0 mmol/[facility] HospitalProtein [Mass/Vol] 7.4 g/dL6.4 - 8.3 g/dLUniversity Hospitals Ahuja Medical Centerodium [Moles/Vol]142 mmol/L135 - 145 mmol/[facility] HospitalUrea nitrogen [Mass/Vol]12 mg/dL7 - 25 mg/dL City HospitalUrea nitrogen/Creatinine [Mass ratio]16 mg/mgLos Angeles County High Desert HospitalNo Panel InformationOrdered By: Wei Robertson on 52-93-1718Efyyskltcgfnnz and review of laboratory resultsAbnormal [facility] Work Phone: [facility] Work Phone: No Panel Informationon [id number]: 1. Biopsy-proven malignancy with measurements as described above. 2. Normal appearance of the right axilla. BI-RADS: 6: Known biopsy proven malignancy Recommendation: Surgical excision when clinically appropriate. Recommendation Laterality: Right RADIOLOGY EXAM: US BREAST LIMITED UNILATERAL RIGHT, US AXILLA FOR MAMMOGRAPHY RIGHT, 02/24/2022 10:44 AM (accession [id number]), 02/24/2022 10:45 AM (accession [id number]) CLINICAL INDICATIONS: New right breast malignancy 5 [...] No suspicious axillary lymph nodes are identified. RADIOLOGYWei Robertson MD - 02/24/2022 EXAM: US BREAST LIMITED UNILATERAL RIGHT, US AXILLA FOR MAMMOGRAPHY RIGHT, 02/24/2022 10:44 AM (accession [id number]), 02/24/2022 10:45 AM (accession [id number]) CLINICAL INDICATIONS: New right breast malignancy 5 [...] excision when clinically appropriate. Recommendation Laterality: Right City HospitalUS Axilla - righton 18-52-2460Soufgtxzr Study observation (narrative)City HospitalUS Breast - right limitedon 71-34-7002Exeqfywni Study observation (narrative)City HospitalXR Chest PA and Lateralon [id number]: No acute cardiopulmonary disease RADIOLOGYEXAM: XR CHEST PA AND LATERAL, 02/24/2022 11:15 AM COMPARISON: No prior studies available for comparison. CLINICAL INDICATIONS: pre op testing RELEVANT CLINICAL HISTORY: Z01.818:Pre-op testing FINDINGS: (Adequate technique) Implanted Devices: None Lungs: Clear, without mass, interstitial disease, or consolidation. Pleural Spaces: No pleural effusion. No pneumothorax. Mediastinum and Ángela: Normal Cardiac silhouette and great vessels: Normal heart size. Unremarkable aorta. Chest Wall: Normal RADIOLOGYUnc Hospitals Hillsborough CampusPage mayer [facility] - 02/24/2022 EXAM: XR CHEST PA AND [...] Normal IMPRESSION IMPRESSION: No acute cardiopulmonary disease City HospitalRadiology Study observation (narrative)City HospitalXR Chest PA and LateralOrdered By: Page Elizabeth on 42-19-4928YORLakeHealth Beachwood Medical Center Work Phone: mg Breast Viewson [id number]: Biopsy-proven carcinoma in the 5:00 right breast as described above. RADIOLOGYEXAM: BREAST IMAGING SECOND OPINION READING, 02/18/2022 09:07 [...] to underestimate the size of the mass. Biju Hunter MD - 02/18/2022 EXAM: BREAST IMAGING SECOND OPINION [...] the 5:00 right breast as described above. City HospitalRadiology Study observation (narrative)City HospitalMG Breast ViewsOrdered By: Biju Blum on 14-50-3387QMVLakeHealth Beachwood Medical Center Work Phone: us VAC ASST BX BRST RT W CLIPon [id number] VAC ASST BX BRST RT W CLIP Begin Addendum #1 COLLECTED DATE/TIME: 01/20/2022 08:38 EDT Final Diagnosis Report for [facility] [place], [place] RIGHT BREAST SPICULATED MASS AT 5 [...] will be provided after pathology results are available.NormalThe St. Charles HospitalMAMMO POST BIOPSY RIGHTon 43-70-7959UPMWX POST BIOPSY RIGHTPatient: MALIA COOK Exam Date: 01/20/2022 : 1960 Gender:F Ordering : DR TUCKER HAYWOOD M.D. Admission #: [id number] Family : Order #: [id number] CLICK HERE TO VIEW EXAM RADIOLOGY REPORT [...] by: Antonio Arthur M.D. on 01/20/2022 at 11:49[facility] HospitalMG MAMM RC DIAG W CADon [id number] MAMM RC DIAG W CADPatient: MALIA COOK Exam Date: 01/15/2022 : 1960 Gender:F Ordering : DR TUCKER HAYWOOD M.D. Admission #: [id number] Family : Order #: [id number] CLICK HERE TO VIEW EXAM RADIOLOGY REPORT [...] colon cancer at age 46. LOCATION: [facility] BREAST COMPOSITION: Extremely dense, which lowers the [...] radiology department nurse will contact patient to family readiness support assistant scheduling biopsy. LEFT BREAST: No significant [...] by: Antonio Arthur M.D. on 01/15/2022 at 11:14[facility] HospitalUS BREAST RIGHT LIMITEDon 39-74-1810VE BREAST RIGHT LIMITEDPatient: MALIA COOK Exam Date: 01/15/2022 : 1960 Gender:F Ordering : DR TUCKER HAYWOOD M.D. Admission #: [id number] Family : Order #: [id number] CLICK HERE TO VIEW EXAM RADIOLOGY REPORT [...] colon cancer at age 46. LOCATION: [facility] BREAST COMPOSITION: Extremely dense, which lowers the [...] radiology department nurse will contact patient to family readiness support assistant scheduling biopsy. LEFT BREAST: No significant [...] by: Antonio Arthur M.D. on 01/15/2022 at 11:14[facility] District HospitalTSHon 17-74-8736NAZ8.474 uIU/mLNormal0.470-4.680[facility] Comment on above:Performed By: #### TSH #### [facility] [address] [address] [address] Shantanu NielsenSHRINERS HOSPITALS FOR CHILDREN BELOWHighland District HospitalComment on above: Result Comment: <0.34 UIU/ml HYPERTHYROID 0.34-5.60 UIU/ml EUTHYROID >5.60 UIU/ml HYPOTHYROIDPerformed By: #### TSH #### [facility] [address] [address] [address] Shantanu Greene B12 AND FOLATEon 40-58-4348Bdjwuddhh (Vitamin B12) [Mass/Vol] pg/mLCritically vamd379.0-931.0[facility] CenterComment on above:Performed By: #### B12FOL #### [facility] [address] [address] [address] Shantanu LucasFOLATE>20.00Normal>=2.76[facility] CenterComment on above: Performed By: #### B12FOL #### [facility] [address] [address] [address] Shantanu Lucas Vital Signs Date TimeVital SignValuePerforming OnpyjldtmMlxzmjbm83-01-3330 08:58-0500Body homnpa871.02 cmTucker Haywood MD Work Phone: [facility]11-11-2025 08:58-0500 Body mass index (BMI) [Ratio]24.4 kg/l4UvytxpTucker Haywood MD Work Phone: [facility]11-11-2025 08:58-0500 Body jabulw40.59 kgTucker Haywood MD Work Phone: [facility]11-11-2025 08:58-0500 Diastolic blood ynqzhdjh38 mm[Hg]Tucker Haywood MD Work Phone: [facility]11-11-2025 08:58-0500 Heart rate91 /Bret Haywood MD Work Phone: 1(884)[address] [place], [place] 9370111-11-2025 08:58-0500 Respiratory rate20 /Bret Haywood MD Work Phone: 1(137)[address] [place], [place] 9370111-11-2025 08:58-0500 SaO2% (BldA) [Mass fraction]93 %Tucker Haywood MD Work Phone: [phone])[address] [place], [place] 9370111-11-2025 08:58-0500 Systolic blood ymsevoku643 mm[Hg]Tucker Haywood MD Work Phone: 1(052)[address] [place], [place] 9370110-07-2025 08:50-0400 Body oyvqfh602.29 cmTucker Haywood MD Work Phone: 1(786)[address] [place], [place] 9370110-07-2025 08:50-0400 Body mass index (BMI) [Ratio]23.7 kg/q0AzdzsmTucker Haywood MD Work Phone: 1(419)[address] [place], [place] 9370110-07-2025 08:50-0400 Body tjsoer53.68 kgTucker Haywood MD Work Phone: 1(443)[address] [place], [place] 9370110-07-2025 08:50-0400 Diastolic blood karsoyjo68 mm[Hg]Tucker Haywood MD Work Phone: 1(671)[address] [place], [place] 9370110-07-2025 08:50-0400 Heart rate82 /Bret Haywood MD Work Phone: 1(419)[address] [place], [place] 9370110-07-2025 08:50-0400 Respiratory rate14 /Bret Haywood MD Work Phone: 1(897)[address] [place], [place] 9370110-07-2025 08:50-0400 Systolic blood mm[Hg]Tucker Haywood MD Work Phone: 1(711)[address] [place], [place] 9370108-14-2025 08:48-0400 Body oorbgg950 cmBa Romero DO Work Phone: [facility] HospitalTdgqmfoedv83-95-6325 08:48-0400Body mass index (BMI) [Ratio]24.98 kg/x1KajqrBa Romero DO Work Phone: [facility] HospitalAfzgxnpubg01-91-0962 08:48-0400Body qyqetu67.96 kgBa Romero DO Work Phone: [facility] HospitalSfckhlfvqq80-49-7235 15:33-0400Body wezbvu916 cm Stuart Smallwood MD Work Phone: 1(063)[facility] [place], [place] 5773807-30-2025 15:33-0400Body mass index (BMI) [Ratio]24.09 kg/w8Ccotlbolianna Smallwood MD Work Phone: [phone]07-30-2025 15:33-0400Body fewnybbaacc97.5 [degF]Stuart Smallwood MD Work Phone: 1(065)[facility] [place], [place] 5773807-30-2025 15:33-0400Body cpvbve41.69 kgStuart Smallwood MD Work Phone: [phone])2934040[facility]07-30-2025 15:33-0400 Diastolic blood znagagex30 mm[Hg]Stuart Smallwood MD Work Phone: 1(041)[facility]4040[facility]07-30-2025 15:33-0400Heart rate93 /Nayan Smallwood MD Work Phone: 1(814)[facility] [place], [place] 5773807-30-2025 15:33-0400 Respiratory rate16 /Nayan Smallwood MD Work Phone: 1(489)2934040[facility]07-30-2025 15:33-0400Systolic blood eczrdntw462 mm[Hg]Stuart Smallwood MD Work Phone: [phone]07-30-2025 13:34-0400Body mass index (BMI) [Ratio]24.09 kg/f2LnktgArnaldo MACHADO Work Phone: [facility]07-30-2025 13:34-0400Body cukjaiuftan26.5 [degF]Arnaldo Land APRN-BUILD AND RELEASE MANAGER Work Phone: 1(673)[facility] HospitalYvette[address] [place], [place] 7860807-30-2025 13:34-0400Body yoeqeh40.69 kgArnaldo Land APRN-BUILD AND RELEASE MANAGER Work Phone: 1(693)[address] [place], [place] 2871307-30-2025 13:34-0400 Diastolic blood mm[Hg]Arnaldo Land APRN-BUILD AND RELEASE MANAGER Work Phone: 1(228)[facility] HospitalYvette[address] [place], [place] 7860807-30-2025 13:34-0400Heart rate93 /Stephon Land APRN-BUILD AND RELEASE MANAGER Work Phone: 1(817)[address] [place], [place] 2871307-30-2025 13:34-0400 Respiratory rate16 /Stephon Land APRN-BUILD AND RELEASE MANAGER Work Phone: 1(440)[address] [place], [place] 2871307-30-2025 13:34-1175SuG1% (BldA) [Mass fraction]99 %Arnaldo Land APRN-BUILD AND RELEASE MANAGER Work Phone: 1(649)[address] [place], [place] 2871307-30-2025 13:34-0400Systolic blood mbcamiuv058 mm[Hg]Arnaldo Land APRN-BUILD AND RELEASE MANAGER Work Phone: 1(022)[address] [place], [place] 2871307-17-2025 11:00-0400Body teusgr316 cmBa Romero [employer] Work Phone: 1(753)[address] [place], [place] 6864207-17-2025 11:00-0400Body mass index (BMI) [Ratio]24.98 kg/y2Kpobslauren Romero [employer] Work Phone: 1(411)[address] [place], [place] 6864207-17-2025 11:00-0400Body wexbrf58.96 kgBa James [employer] Work Phone: 1(564)[address] [place], [place] 6864206-16-2025 08:42-0400Body yfxagi557 cm Ba James [employer] Work Phone: 1(503)[address] [place], [place] 6864206-16-2025 08:42-0400Body mass index (BMI) [Ratio]24.98 kg/u6OquldBa Romero DO Work Phone: [facility] HospitalQcozkphbmp70-53-0058 08:42-0400Body eckyfe26.96 kgBa Romero DO Work Phone: 1([phone]05-08-2025 13:45-0400Body gupdan116.29 cmGre[facility]05-08-2025 13:45-0400Body mass index (BMI) [Ratio]25.1 kg/w5OwqxtyhsyGreene Memorial Hospital05-08-2025 13:45-0400Body zylxbr03.31 kgGreene Memorial Hospital05-08-2025 13:45-0400Diastolic blood yfcksnit03 mm[Hg][facility]05-08-2025 13:45-0400 Heart rate79 /[facility]05-08-2025 13:45-0400Systolic blood mm[Hg][facility]04-23-2025 15:10-0400 Heart rate99 /Joe James [address] [place], [place] 1724104-23-2025 15:10-7631PbX8% (BldA) [Mass fraction]98 %Ba Romero [address] [place], [place] 1724104-23-2025 15:10-0400 Diastolic blood mm[Hg]Ba Romero [address] [place], [place] 1724104-23-2025 15:10-0400Mean blood cybwxihw65 mm[Hg]Ba Romero [address] [place], [place] 1724104-23-2025 15:10-0400 Systolic blood ydduwvyw333 mm[Hg]Balauren Romero [address] [place], [place] 1724104-23-2025 15:09-0400Blood Pressure LocationBa James [address] [place], [place] 1724104-23-2025 15:09-0400 Respiratory rate16 /Joe Romero [address] [place], [place] 1724104-23-2025 14:18-0400Heart rate89 /Joe Romero [address] [place], [place] 1724104-23-2025 14:18-8749NoF3% (BldA) [Mass fraction]95 %Ba Romero [address] [place], [place] 1724104-23-2025 14:17-0400 Diastolic blood zomkeqva87 mm[Hg]Ba Romero [address] [place], [place] 1724104-23-2025 14:17-0400Mean blood mm[Hg]Ba Romero [address] [place], [place] 1724104-23-2025 14:17-0400 Systolic blood dyfyzwaa693 mm[Hg]Ba Romero [address] [place], [place] 5742104-23-2025 14:16-0400 Respiratory rate16 /Joe Romero [address] [place], [place] 1724104-23-2025 14:05-7497JhN5% (BldA) [Mass fraction]97 %Ba Romero [address] [place], [place] 1724104-23-2025 14:05-0400Heart rate89 /Joe Romero [address] [place], [place] 1724104-23-2025 14:05-0400 Respiratory rate13 /Joe Romero [address] [place], [place] 1724104-23-2025 14:05-0400Blood Pressure LocationBa Romero [address] [place], [place] 1724104-23-2025 14:05-0400Body kkxynkprxwj93.16 [degF]Ba Romero [address] [place], [place] 1724104-23-2025 14:05-0400 Diastolic blood zcwbheib34 mm[Hg]Ba Romero [address] [place], [place] 1724104-23-2025 14:05-0400Mean blood iagymvnj11 mm[Hg]Ba Romero [address] [place], [place] 1724104-23-2025 14:05-0400 Systolic blood bbspdtbo466 mm[Hg]Ba Romero [address] [place], [place] 1724104-23-2025 14:00-0400 Respiratory rate18 /Joe Romero [address] [place], [place] 1724104-23-2025 14:00-0400Mean blood fsasxkky40 mm[Hg]Ba Romero [address] [place], [place] 1724104-23-2025 13:55-0400 Respiratory rate24 /Joe Romero [address] [place], [place] 1724104-23-2025 13:55-0400Mean blood zdwizyqj39 mm[Hg]Ba Romero [address] [place], [place] 1724104-23-2025 13:43-0400Body qlcqbocpurn00.98 [degF]Ba Romero [address] [place], [place] 1724104-23-2025 10:18-0400Mean blood pcizixvi092 mm[Hg]Ba Romero [address] [place], [place] 1724104-23-2025 10:18-0400Body gbkurfmvthj85.34 [degF]Ba Romero [address] [place], [place] 1724104-23-2025 10:18-0400Heart rate84 /Joe Romero [address] [place], [place] 1724104-22-2025 09:14-0400Body vsqufq226.29 cmGre[facility] Hospital04-22-2025 09:14-0400Body mass index (BMI) [Ratio]24.9 kg/z3ZceygszrqGreene Memorial Hospital04-22-2025 09:14-0400Body snparm01.86 kgGreene Memorial Hospital04-22-2025 09:14-0400Diastolic blood akohfmdg53 mm[Hg][facility] 12-19-2024 09:14-0400Heart rate81 /[facility] 12-19-2024 09:14-0400Systolic blood mm[Hg][facility]04-21-2025 08:29-0400Body fjxhcy573.29 cmGreene Memorial Hospital04-21-2025 08:29-0400Body mass index (BMI) [Ratio]24.9 kg/w9HwjlynbnqGreene Memorial Hospital04-21-2025 08:29-0400Body nhcnfvyutap66.6 [degF][facility]04-21-2025 08:290400Body urputv61.86 kgGreene Memorial Hospital04-21-2025 08:29-0400Diastolic blood orihthyu53 mm[Hg] [facility]04-21-2025 08:29-0400Heart rate82 /minGreene Memorial Hospital04-21-2025 08:29-0400Respiratory rate20 /[facility]04-21-2025 08:29-6011UuA6% (BldA) [Mass fraction]96 % [facility]04-21-2025 08:290400Systolic blood oatdtgxq501 mm[Hg][facility]04-10-2025 10:32-0400Heart rate85 /min Ba James [address] [place], [place] 1724104-10-2025 10:32-2194PfJ7% (BldA) [Mass fraction]95 %Ba James [address] [place], [place] 1724104-10-2025 10:32-0400 Respiratory rate18 /minBa James [address] [place], [place] 1724104-10-2025 10:32-0400 Diastolic blood pjrlxney42 mm[Hg]Ba Romero [address] [place], [place] 1724104-10-2025 10:32-0400Mean blood mqbsiyjn746 mm[Hg]Ba Romero [facility]04-10-2025 10:32-0400 Systolic blood yxgglkwp420 mm[Hg]Ba Romero [address] [place], [place] 1724103-20-2025 13:30-0400Body eyozld031.3 cmBa Romero DO Work Phone: 1(119)[address] [place], [place] 6864203-20-2025 13:30-0400Body mass index (BMI) [Ratio]24.59 kg/x6BitbpBa Romero DO Work Phone: 1(718)[address] [place], [place] 6864203-20-2025 13:30-0400Body viyhzo10.96 kgBa Romero DO Work Phone: 1(124)[address] [place], [place] 6864201-16-2025 10:07-0500Body .3 cmBa Romero DO Work Phone: 1(034)[address] [place], [place] 6864201-16-2025 10:07-0500Body mass index (BMI) [Ratio]24.76 kg/e1IdmwgBa Romero DO Work Phone: 1(531)[address] [place], [place] 6864201-16-2025 10:07-0500Body .41 kgBa Romero DO Work Phone: 1(824)[address] [place], [place] 6864211-26-2024 13:28-0500Body ezxbua200.3 cmBa Romero DO Work Phone: 1(109)[address] [place], [place] 6864211-26-2024 13:28-0500Body mass index (BMI) [Ratio]24.76 kg/z0TmvsoBa Romero DO Work Phone: 1(844)[address] [place], [place] 6864211-26-2024 13:28-0500Body temperature 97.39 [degF]Ba Romero DO Work Phone: 1(611)[address] [place], [place] 6864211-26-2024 13:28-0500Body fspsof58.41 kgBa Romero DO Work Phone: 1(293)[address] [place], [place] 6864210-15-2024 14:27-0400Body .3 cmBa Romero DO Work Phone: 1(678)[address] [place], [place] 6864210-15-2024 14:27-0400Body mass index (BMI) [Ratio]24.76 kg/s8UjbmyBa Romero DO Work Phone: 1(344)[address] [place] [address]-15-2024 14:27-0400Body iaabmp99.41 kgBa Romero DO Work Phone: 1(869)[address]09-24-2024 14:35-0400Body uktchv467.3 cmBa Romero [employer] Work Phone: 1(492)[address] [place], [place] 6864209-24-2024 14:35-0400Body mass index (BMI) [Ratio]24.76 kg/s6LchefBa Romero [employer] Work Phone: 1(910)[address] [place], [place] 6864209-24-2024 14:35-0400Body uygffz77.41 kgBa Romero [employer] Work Phone: 1(410)[address] [place], [place] 6864209-11-2024 15:50-0400Blood Pressure LocationBa Romero [address] [place], [place] 5742109-11-2024 15:50-0400Body lxmnuyovpaw89.88 [degF]Ba Romero [address] [place], [place] 5742109-11-2024 15:50-0400 Diastolic blood obmluiox08 mm[Hg]Ba Romero [address]09-11-2024 15:50-0400Heart rate90 /Joe Romero [address] [place], [place] 1724109-11-2024 15:50-0400Mean blood vmadtkfi31 mm[Hg]Ba Romero [address]09-11-2024 15:50-7012UnB6% (BldA) [Mass fraction]96 %Ba Romero [address] [place], [place] 1724109-11-2024 15:50-0400 Systolic blood efxkemrw724 mm[Hg]Ba Romero [address] [place], [place] 1724109-11-2024 14:51-0400Heart rate95 /Joe Romero [address] [place], [place] 1724109-11-2024 14:51-9784TqE6% (BldA) [Mass fraction]94 %Ba Romero [address] [place], [place] 1724109-11-2024 14:51-0400 Respiratory rate16 /minJason Brown [address] [place], [place] 1724109-11-2024 14:50-0400 Diastolic blood fdyyiucq78 mm[Hg]Ba Romero [address] [place], [place] 1724109-11-2024 14:50-0400Mean blood pawubdmd73 mm[Hg]Ba Romero [address] [place], [place] 1724109-11-2024 14:50-0400 Systolic blood tpjeqyob343 mm[Hg]Ba Romero [address] [place], [place] 1724109-11-2024 14:45-0400Blood Pressure LocationBa Romero [address]09-11-2024 14:45-0400Body qwlahdbkaws69.52 [degF]Ba Romero [address]09-11-2024 14:45-0400 Diastolic blood ntqdizgq30 mm[Hg]Ba Romero [address] [place], [place] 1724109-11-2024 14:45-0400Heart rate96 /Joe Romero [address] [place], [place] 1724109-11-2024 14:45-0400Mean blood bsynegec42 mm[Hg]Ba Romero [address] [place], [place] 1724109-11-2024 14:45-0400 Respiratory rate16 /Joe Romero [address] [place], [place] 1724109-11-2024 14:45-8311AvF1% (BldA) [Mass fraction]96 %Ba Romero [address] [place], [place] 1724109-11-2024 14:45-0400 Systolic blood sohfasnw734 mm[Hg]Ba Romero [address] [place], [place] 1724109-11-2024 14:35-0400Blood Pressure LocationBa Romero [address] [place], [place] 1724109-11-2024 14:35-0400Mean blood lwedcpml375 mm[Hg]Ba Romero [address] [place], [place] 1724109-11-2024 14:35-0400 Respiratory rate20 /Joe Romero [address] [place], [place] 1724109-11-2024 14:30-0400 Respiratory rate10 /Joe Romero [address] [place], [place] 1724109-11-2024 14:18-0400Body owkrwcikchh32.52 [degF]Ba Romero [address] [place], [place] 1724109-11-2024 14:15-9893LVM4 100 Anita Romero [address] [place], [place] 1724109-11-2024 14:10-4541NYW5 100 Anita Romero [address] [place], [place] 1724109-11-2024 14:10-0400 Respiratory rate25 /Joe Romero [address] [place], [place] 1724109-11-2024 14:05-6517DQS2 100 Anita Romero [address] [place], [place] 1724109-11-2024 14:05-0400 Respiratory rate27 /Joe Romero [address] [place], [place] 1724109-11-2024 09:26-0400Body ztdwgfmyaak05.52 [degF]Ba Romero [address] [place], [place] 1724109-11-2024 09:26-0400Mean blood yosmtssn806 mm[Hg]Ba Romero [address] [place], [place] 1724108-27-2024 10:43-0400Heart rate75 /Joe Romero [address] [place], [place] 1724108-27-2024 10:43-3259PlA0% (BldA) [Mass fraction]98 %Ba Romero [address] [place], [place] 1724108-27-2024 10:43-0400Blood Pressure LocationBa Romero [facility]08-27-2024 10:43-0400 Diastolic blood amtdmuhp79 mm[Hg]Ba Romero [facility]08-27-2024 10:43-0400Mean blood klcmckjo378 mm[Hg]Ba Romero [facility]08-27-2024 10:43-0400 Systolic blood epibyucg615 mm[Hg]Ba Romero [facility]08-27-2024 10:43-0400 Respiratory rate18 /minBa Romero [facility]08-27-2024 08:59-0400Body jtliqk893.3 cmBa Romero DO Work Phone: 1(454)[address]08-27-2024 08:59-0400Body mass index (BMI) [Ratio]24.76 kg/g9OsurcBa Romero DO Work Phone: 1(557)[address]08-27-2024 08:59-0400Body rtbicp69.41 kgBa Romero DO Work Phone: 1(820)[address]07-24-2024 15:35-0400Body mass index (BMI) [Ratio]24.64 kg/v4UsskyaxStuart Smallwood MD Work Phone: [facility]07-24-2024 15:35-0400Body uibklrpysne28.7 [degF]Stuart Smallwood MD Work Phone: [facility]07-24-2024 15:35-0400Body ytpebo54.09 kgStuart Smallwood MD Work Phone: [facility]07-24-2024 15:35-0400 Diastolic blood izezwmrn65 mm[Hg]Stuart Smallwood MD Work Phone: [facility]07-24-2024 15:35-0400Heart rate88 /minSdyan Smallwood MD Work Phone: [facility]07-24-2024 15:35-0400Systolic blood qxboride642 mm[Hg]Stuart Smallwood MD Work Phone: [facility]07-24-2024 12:38-0400Body mass index (BMI) [Ratio]24.64 kg/h0Cmyyo Mckeon BUSINESS DEVELOPMENT ASSISTANT-BUILD AND RELEASE MANAGER Work Phone: [facility]07-24-2024 12:38-0400Body ubgjmrwztlc44.7 [degF]Trinidad Tiptonuyen BUSINESS DEVELOPMENT ASSISTANT-BUILD AND RELEASE MANAGER Work Phone: [facility]07-24-2024 12:38-0400Body zebvdm64.09 kgAmber Mckeon BUSINESS DEVELOPMENT ASSISTANT-BUILD AND RELEASE MANAGER Work Phone: [facility]07-24-2024 12:38-0400 Diastolic blood nrzbjmeb30 mm[Hg]Triindad Tiptonuyen BUSINESS DEVELOPMENT ASSISTANT-BUILD AND RELEASE MANAGER Work Phone: [facility]07-24-2024 12:38-0400Heart rate88 /minAmber Mckeon BUSINESS DEVELOPMENT ASSISTANT-BUILD AND RELEASE MANAGER Work Phone: [facility]07-24-2024 12:38-5899FsK7% (BldA) [Mass fraction]99 %Trinidad Mckeon BUSINESS DEVELOPMENT ASSISTANT-BUILD AND RELEASE MANAGER Work Phone: [facility]07-24-2024 12:38-0400Systolic blood rotdhopm013 mm[Hg]Trinidad [place] BUSINESS DEVELOPMENT ASSISTANT-BUILD AND RELEASE MANAGER Work Phone: [facility]05-24-2024 08:35-0400Body [id number] Mable Oneal PA-C Work Phone: [facility]05-24-2024 08:35-0400Body mass index (BMI) [Ratio]24.8 kg/m2Andreina ETIENNE-C Work Phone: [facility]05-24-2024 08:35-0400Body yhizop21.5 kgAndreina Oneal PA-C Work Phone: [facility]01-10-2024 12:41-0500Body mass index (BMI) [Ratio]24.02 kg/y9YkjbpcSharath Alvarado MD Work Phone: 1(045)[address] [place], [place] 0627801-10-2024 12:41-0500Body wbfyvdhfpos57.39 [degF]Sharath Alvarado MD Work Phone: 1([phone])[address] [place], [place] 0627801-10-2024 12:41-0500Body oorgin29.51 kgSharath Alvarado MD Work Phone: 1([phone])[address] [place], [place] 0627801-10-2024 12:41-0500 Diastolic blood kefvgpkj85 mm[Hg]Sharath Alvarado MD Work Phone: 1(636)[address] [place], [place] 0627801-10-2024 12:41-0500Heart rate74 /minSharath Alvarado MD Work Phone: 1(258)[address] [place], [place] 0627801-10-2024 12:41-0500 Respiratory rate12 /minSharath Alvarado MD Work Phone: 1(148)[address] [place], [place] 0627801-10-2024 12:41-0500Systolic blood vecnuinz067 mm[Hg]Sharath Alvarado MD Work Phone: 1(380)[address] [place], [place] 0627801-10-2024 08:28-0500Body mass index (BMI) [Ratio]24.02 kg/i0XzwgcfMel Giron MD Work Phone: 1(264)[address] [place], [place] 2871301-10-2024 08:28-0500Body vbyogrnqmpb34.39 [degF]Mel Giron MD Work Phone: 1(535)[address] [place], [place] 2871301-10-2024 08:28-0500Body .51 kgMel Giron MD Work Phone: 1(528)[facility]0066[facility]01-10-2024 08:28-0500 Diastolic blood mm[Hg]Mel Giron MD Work Phone: 1(755)[address] [place], [place] [address]2736[facility]01-10-2024 08:28-0500Heart rate74 /Mack Giron MD Work Phone: 1(319)[address] [place], [place] 2871301-10-2024 08:28-0500 Respiratory rate12 /Mack Giron MD Work Phone: 1(205)[address] [place], [place] [address]36[facility]01-10-2024 08:28-0500Systolic blood mm[Hg]Mel Giron MD Work Phone: 1(718)[address] [place], [place] [address]36[facility]11-22-2023 13:24-0500 Diastolic blood hwhygwek07 mm[Hg]Sharath Alvarado MD Work Phone: 1(460)[facility]8566[facility]11-22-2023 13:24-0500Heart rate71 /Olivia Alvarado MD Work Phone: 1(692)[facility]8566[facility]11-22-2023 13:24-0500 Respiratory rate16 /Olivia Alvarado MD Work Phone: 1(355)[facility]8566[facility]11-22-2023 13:24-9459VrB8% (BldA) [Mass fraction]99 %Sharath Alvarado MD Work Phone: 1(205)[facility]8566[facility]11-22-2023 13:24-0500Systolic blood qlrulpjs990 mm[Hg]Sharath Alvarado MD Work Phone: 1(894)[facility]8566[facility]11-15-2023 10:00-0500Body evrdsv809.29 cmHeidi Danita Other [employer] Other 11-15-2023 10:00-0500Body mass index (BMI) [Ratio] 23.71 kg/q6Mzhju Danita Other [employer] Other 11-15-2023 10:00-0500Body qoegzyvbatm53.6 [degF]Sola Danita Other [employer] Other 11-15-2023 10:00-0500Body ciqiwt02.69 kgHeidi Danita Other [employer] Other 11-15-2023 10:00-0500Diastolic blood mm[Hg] Sola Danita Other [employer] Other 11-15-2023 10:00-0500Respiratory rate20 /minHeidi Danita Other [employer] Other 11-15-2023 10:00-8180QjX1% (BldA) [Mass fraction]99 % Sola Danita Other [facility] [employer] Other 11-15-2023 10:00-0500Systolic blood bqojlykq340 mm[Hg] Sola Danita Other [employer] Other 11-01-2023 13:02-0400Body mass index (BMI) [Ratio] 24.17 kg/c8MinmywSharath Alvarado MD Work Phone: [facility]11-01-2023 13:02-0400Body bbassi78.87 kgSharath Alvarado MD Work Phone: [facility]11-01-2023 13:02-0400 Diastolic blood rnbgltuw00 mm[Hg]Sharath Alvarado MD Work Phone: [facility]11-01-2023 13:02-0400Heart rate72 /minSharath Alvarado MD Work Phone: [facility]11-01-2023 13:02-0400 Respiratory rate16 /minSharath Alvarado MD Work Phone: [facility]11-01-2023 13:02-9507ZnZ5% (BldA) [Mass fraction]99 %Sharath Alvarado MD Work Phone: [facility]11-01-2023 13:02-0400Systolic blood ahgzahgg096 mm[Hg]Sharath Alvarado MD [facility]: [facility] 11:00-0400Body wszavh856.29 cmTucker Haywood Other [employer] Other [id number] 11:00-0400Body mass index (BMI) [Ratio]24.3 kg/v3OeyrogTucker Haywood Other [employer] Other 10-19-2023 11:00-0400Body zunkdc93.23 kgTaylorjohn Adolfo Other [employer] Other 10-19-2023 11:00-0400Diastolic blood gnxmgicy42 mm[Hg] Tucker Haywood Other [employer] Other [id number] 11:00-0400Systolic blood fctxpzvu432 mm[Hg] Tucker Haywood Other [employer] Other 10-11-2023 09:15-0400Body mass index (BMI) [Ratio] 23.91 kg/l5GgsguArnaldo Land APRN-EDEN Work Phone: [facility]10-11-2023 09:15-0400Body deujyortucp21.3 [degF]Arnaldo Land APRN-BUILD AND RELEASE MANAGER Work Phone: 1(614)293-[address] [place], [place] 7873210-11-2023 09:15-0400Body .19 kgSaloretta Land BUSINESS DEVELOPMENT ASSISTANT-BUILD AND RELEASE MANAGER Work Phone: 1(194)T[address] [place], [place] 7860810-11-2023 09:15-0400 Diastolic blood ynhqmzhq89 mm[Hg]Arnaldo Land APRN-BUILD AND RELEASE MANAGER Work Phone: 1(987)[address] [place], [place] 2871310-11-2023 09:15-0400Heart rate86 /Stephon Land BUSINESS DEVELOPMENT ASSISTANT-BUILD AND RELEASE MANAGER Work Phone: 1(152)[address] [place], [place] 2871310-11-2023 09:15-0400 Respiratory rate16 /Stephon Land BUSINESS DEVELOPMENT ASSISTANT-BUILD AND RELEASE MANAGER Work Phone: 1(874)[address] [place], [place] 2871310-11-2023 09:15-9853YeZ3% (BldA) [Mass fraction]98 %Arnaldo Land APRN-BUILD AND RELEASE MANAGER Work Phone: 1(798)[address] [place], [place] 2871310-11-2023 09:15-0400Systolic blood urujxxyc844 mm[Hg]Arnaldo Land APRN-BUILD AND RELEASE MANAGER Work Phone: 1(026)[address] [place], [place] 2871309-20-2023 10:15-0400Body jzpetx927.29 cmHeidi Danita Other [employer] Other 09-20-2023 10:15-0400Body mass index (BMI) [Ratio] 23.19 kg/p3Whxhr Danita Other [employer] Other 09-20-2023 10:15-0400Body uvffckvzofh00.6 [degF]Sola Danita Other [employer] Other 09-20-2023 10:15-0400Body ncoard25.33 kgHeidi Danita Other [employer] Other 09-20-2023 10:15-0400Diastolic blood olulhktx20 mm[Hg] Sola Danita Other [employer] Other 09-20-2023 10:15-0400Respiratory rate20 /minHeidi Danita Other [employer] Other 09-20-2023 10:15-4799KbH0% (BldA) [Mass fraction]97 % Sola Danita Other [employer] Other 09-20-2023 10:15-0400Systolic blood nahkwtiq051 mm[Hg] Sola Danita Other [employer] Other 09-12-2023 13:15-0400Body afijat980.29 cmTucker Haywood Other [employer] Other 09-12-2023 13:15-0400Body mass index (BMI) [Ratio] 23.43 kg/w2ErgsmbTucker Haywood Other [employer] Other 09-12-2023 13:15-0400Body jwolfv23.96 kgTucker Haywood Other [employer] Other 09-12-2023 13:15-0400Diastolic blood wvdsybfi59 mm[Hg] Tucker Haywood Other [employer] Other 09-12-2023 13:15-0400Respiratory rate12 /minTucker Haywood Other [employer] Other 09-12-2023 13:15-4074RzC4% (BldA) [Mass fraction]96 % Tucker Haywood Other [employer] Other 09-12-2023 13:15-0400Systolic blood cmeqcdqu253 mm[Hg] Tucker Haywood Other [facility] [employer] Other 06-28-2023 08:35-0400Diastolic blood lsgggunh10 mm[Hg] Sharath Alvarado MD Work Phone: [facility]06-28-2023 08:35-0400Heart rate70 /minSharath Alvarado MD Work Phone: 1(408)1068472[facility]06-28-2023 08:35-0400 Respiratory rate16 /minSharath Alvarado MD Work Phone: 1(075)3266706[facility]06-28-2023 08:35-6104CqI0% (BldA) [Mass fraction]98 %Sharath Alvarado MD Work Phone: [facility]06-28-2023 08:35-0400Systolic blood jumxpniz173 mm[Hg]Sharath Alvarado MD Work Phone: [facility]06-22-2023 15:00-0400Body htttky218.29 cmTucker Haywood Other [employer] Other 06-22-2023 15:00-0400Body mass index (BMI) [Ratio] 23.19 kg/x0WgtvylTucker Haywood Other [employer] Other 06-22-2023 15:00-0400Body odswxx97.33 kgTucker Haywood Other [facility] [employer] Other 06-22-2023 15:00-0400Diastolic blood ufdlgxal29 mm[Hg] Tucker Haywood Other [employer] Other 06-22-2023 15:00-4998DgN1% (BldA) [Mass fraction]96 % Tucker Haywood Other [employer] Other 06-22-2023 15:00-0400Systolic blood xwkbhggu872 mm[Hg] Tucker Haywood Other [facility] [employer] Other 05-31-2023 14:29-0400Body ztegci993.3 Chloe Smallwood MD Work Phone: 1(211)[address] [place], [place] 1980805-31-2023 14:29-0400Body mass index (BMI) [Ratio]23.89 kg/d6ItbmkvaStuart Smallwood MD Work Phone: 1(453)[address] [place], [place] 1980805-31-2023 14:29-0400Body zsvxqwaasrt74.59 [degF]Stuart Smallwood MD Work Phone: 1(939)[address] [place], [place] 1980805-31-2023 14:29-0400Body eofbht87.14 kgStuart Smallwood MD Work Phone: 1(033)[address] [place], [place] 1980805-31-2023 14:29-0400 Diastolic blood bukwtflp01 mm[Hg]Stuart Smallwood MD Work Phone: 1(178)[address] [place], [place] 1980805-31-2023 14:29-0400Heart rate81 /Nayan Smallwood MD Work Phone: 1(641)[address] [place], [place] 1980805-31-2023 14:29-0400Systolic blood ytasymat646 mm[Hg]Stuart Smallwood MD Work Phone: 1(027)[address] [place], [place] 1980804-12-2023 12:20-0400Body ibdzseniyjh18.2 [degF]Sharath Alvarado MD Work Phone: 1(348)4407755[facility]04-12-2023 12:20-0400 Diastolic blood noluubsb21 mm[Hg]Sharath Alvarado MD Work Phone: 1(269)5789141[facility]04-12-2023 12:20-0400Heart rate86 /Olivia Alvarado MD Work Phone: [facility]04-12-2023 12:20-0400 Respiratory rate16 /Olivia Alvarado MD Work Phone: 1(896)7348566[facility]04-12-2023 12:20-5222HvU4% (BldA) [Mass fraction]100 %Sharath Alvarado MD Work Phone: [facility]04-12-2023 12:20-0400Systolic blood ldlbcqqa886 mm[Hg]Sharath Alvarado MD Work Phone: 1(462)0898566[facility]03-31-2023 10:45-0400Body pdawed841.29 cmTucker Haywood Other [facility] [employer] Other 03-31-2023 10:45-0400Body mass index (BMI) [Ratio] 24.69 kg/l0GybftiTucker Haywood Other [employer] Other 03-31-2023 10:45-0400Body zmkied28.23 kgTaylorjohn Adolfo Other [employer] Other 03-31-2023 10:45-0400Diastolic blood mm[Hg] Tucker Haywood Other [employer] Other 03-31-2023 10:45-0400Respiratory rate18 /Bret Haywood Other [employer] Other 03-31-2023 10:45-9259YaG8% (BldA) [Mass fraction]96 % Tucker Haywood Other [employer] Other 03-31-2023 10:45-0400Systolic blood wtfxcpsy335 mm[Hg] Tucker Adolfo Other [facility] [employer] Other 02-08-2023 08:30-0500Body mass index (BMI) [Ratio] 24.94 kg/n7Kcsleloretta Powersin BUSINESS DEVELOPMENT ASSISTANT-BUILD AND RELEASE MANAGER [facility]: [facility]-08-2023 08:30-0500Body eizilvybrvj01.3 [degF]Arnaldo Escobedo BUSINESS DEVELOPMENT ASSISTANT-BUILD AND RELEASE MANAGER Work Phone: [facility]02-08-2023 08:30-0500Body canpwg18.87 kgSaloretta Escobedo BUSINESS DEVELOPMENT ASSISTANT-BUILD AND RELEASE MANAGER Work Phone: [facility]02-08-2023 08:30-0500 Diastolic blood emywtpkl84 mm[Hg]Arnaldo Escobedo BUSINESS DEVELOPMENT ASSISTANT-BUILD AND RELEASE MANAGER Work Phone: [facility]02-08-2023 08:30-0500Heart rate88 /Clarissa Usha BUSINESS DEVELOPMENT ASSISTANT-BUILD AND RELEASE MANAGER Work Phone: [facility]02-08-2023 08:30-0500 Respiratory rate16 /Stephon Powersin BUSINESS DEVELOPMENT ASSISTANT-BUILD AND RELEASE MANAGER Work Phone: [facility]02-08-2023 08:30-6736PzD8% (BldA) [Mass fraction]96 %Arnaldo Powersin BUSINESS DEVELOPMENT ASSISTANT-BUILD AND RELEASE MANAGER Work Phone: [facility]02-08-2023 08:30-0500Systolic blood qxtukobb072 mm[Hg]Arnaldo Escobedo BUSINESS DEVELOPMENT ASSISTANT-BUILD AND RELEASE MANAGER Work Phone: [facility]01-06-2023 09:17-0500Body mass index (BMI) [Ratio]25.51 kg/r6VfnjqDeepti Gomez MD, PhD Work Phone: [facility]01-06-2023 09:17-0500Body alxzyicwqal98.39 [degF]Deepti Gomez MD, PhD Work Phone: 1(787)[address] [place], [place] 5482201-06-2023 09:17-0500Body qmbhyr52.32 kgDeepti Gomez MD, PhD Work Phone: 1(738)[address] [place], [place] 5482201-06-2023 09:17-0500 Diastolic blood trecmfkb76 mm[Hg]Deepti Gomez MD, PhD Work Phone: 1(373)[address] [place], [place] 5482201-06-2023 09:17-0500Heart rate88 /Angel Gomez MD, PhD Work Phone: 1(464)[address] [place], [place] 5482201-06-2023 09:17-0500 Respiratory rate17 /Angel Gomez MD, PhD Work Phone: 1(245)[address] [place], [place] 5482201-06-2023 09:17-5827AkT7% (BldA) [Mass fraction]94 %Deepti Gomez MD, PhD Work Phone: 1(433)[address] [place], [place] 5482201-06-2023 09:17-0500Systolic blood wdaxzeff402 mm[Hg]Deepti Gomez MD, PhD Work Phone: 1(306)[address] [place], [place] 5482212-20-2022 13:33-0500Body mass index (BMI) [Ratio]25.12 kg/j7YenlzDeepti Gomez MD, PhD Work Phone: 1(675)[address] [place], [place] 5482212-20-2022 13:33-0500Body uwolfzvtyti89.5 [degF]Deepti Gomez MD, PhD Work Phone: 1(862)[address] [place], [place] 5482212-20-2022 13:33-0500Body ottbse96.32 Colin Gomez MD, PhD Work Phone: 1(460)[address] [place], [place] 5482212-20-2022 13:33-0500 Diastolic blood ozvfdufn19 mm[Hg]Deepti Gomez MD, PhD Work Phone: 1(788)[address] [place], [place] 5482212-20-2022 13:33-0500Heart rate74 /Angel Gomez MD, PhD Work Phone: 1(912)[address] [place], [place] 5482212-20-2022 13:33-0500 Respiratory rate16 /Angel Gomez MD, PhD Work Phone: 1(793)[address] [place], [place] 5482212-20-2022 13:33-6096HrL2% (BldA) [Mass fraction]98 %Deepti Gomez MD, PhD Work Phone: 1(609)[address] [place], [place] 5482212-20-2022 13:33-0500Systolic blood ylhfltee519 mm[Hg]Deepti Gomez MD, PhD Work Phone: 1(641)[address] [place], [place] 5482212-16-2022 13:56-0500Body mass index (BMI) [Ratio]25.3 kg/h4UkykeDeepti Gomez MD, PhD Work Phone: 1(732)[address] [place], [place] 5482212-16-2022 13:56-0500Body vcblktuadzq82.5 [degF]Deepti Gomez MD, PhD Work Phone: 1(380)[address] [place], [place] 5482212-16-2022 13:56-0500Body .77 kgDeepti Gomez MD, PhD Work Phone: 1(534)[address] [place], [place] 5482212-16-2022 13:56-0500 Diastolic blood cdrexgkg70 mm[Hg]Deepti Gomez MD, PhD Work Phone: 1(216)[address] [place], [place] 5482212-16-2022 13:56-0500Heart rate73 /Angel Gomez MD, PhD Work Phone: 1(985)[address] [place], [place] 5482212-16-2022 13:56-0500 Respiratory rate16 /Angel Gomez MD, PhD Work Phone: 1(346)[address] [place], [place] 5482212-16-2022 13:56-8481ZxC1% (BldA) [Mass fraction]100 %Deepti Gomez MD, PhD Work Phone: 1(304)2933255[facility]12-16-2022 13:56-0500Systolic blood jycnfopd145 mm[Hg]Deepti Gomez MD, PhD Work Phone: 1(215)[facility]3255[facility]12-14-2022 12:28-0500Body xhuwvfejyig93.59 [degF]Sharath Alvarado MD Work Phone: 1(384)[facility]8566[facility]12-14-2022 12:28-0500 Diastolic blood jvsfayag59 mm[Hg]Sharath Alvarado MD Work Phone: 1(734)[facility]8566[facility]12-14-2022 12:28-0500Heart rate76 /minSharath Alvarado MD Work Phone: 1(796)[facility]8566[facility]12-14-2022 12:28-0500 Respiratory rate16 /minSharath Alvarado MD Work Phone: 1(479)[facility]66[facility]12-14-2022 12:28-0701WfH6% (BldA) [Mass fraction]99 %Sharath Alvarado MD Work Phone: 1(645)[facility]8566[facility]12-14-2022 12:28-0500Systolic blood mm[Hg]Sharath Alvarado MD Work Phone: 1(228)[facility]66[facility]12-14-2022 11:01-0500Body mass index (BMI) [Ratio]25.28 kg/w1KfagisMel Giron MD Work Phone: 1(278)[facility]0066[facility]12-14-2022 11:01-0500Body qqelkdgfbwk02.59 [degF]Mel Giron MD Work Phone: 1(198)[address] [place], [place] 2871312-14-2022 11:01-0500Body kfhxpa39.73 kgMel Giron MD Work Phone: 1(163)[address] [place], [place] 502736[facility]12-14-2022 11:01-0500 Diastolic blood egtsjway45 mm[Hg]Mel Giron MD Work Phone: 1(821)[address] [place], [place] 2871312-14-2022 11:01-0500Heart rate90 /Mack Giron MD Work Phone: 1(906)[address] [place], [place] 2871312-14-2022 11:01-0500 Respiratory rate18 /Mack Giron MD Work Phone: 1(960)[address] [place], [place] 2871312-14-2022 11:01-0184BaC0% (BldA) [Mass fraction]99 %Mel Giron MD Work Phone: 1(324)[address] [place], [place] 2871312-14-2022 11:01-0500Systolic blood ugcadvxp031 mm[Hg]Mel Giron MD Work Phone: 1(463)[address] [place], [place] 2871312-02-2022 12:35-0500Body mass index (BMI) [Ratio]25.3 kg/n7AzqlnDeepti Gomez MD, PhD Work Phone: 1(607)[address] [place], [place] 5482212-02-2022 12:35-0500Body .01 [degF]Deepti Gomez MD, PhD Work Phone: 1(877)[address] [place], [place] 5482212-02-2022 12:35-0500Body whosjd40.77 kgDeepti Gomez MD, PhD Work Phone: 1(645)[address] [place], [place] 5482212-02-2022 12:35-0500 Diastolic blood mm[Hg]Deepti Gomez MD, PhD Work Phone: 1(786)[address] [place], [place] 5482212-02-2022 12:35-0500Heart rate90 /Angel Gomez MD, PhD Work Phone: 1(266)[address] [place], [place] 5482212-02-2022 12:35-6720XaA3% (BldA) [Mass fraction]99 %Deepti Gomez MD, PhD Work Phone: 1(802)[address] [place], [place] 5482212-02-2022 12:35-0500Systolic blood xrkimqzi103 mm[Hg]Deepti Gomez MD, PhD Work Phone: 1(160)[facility]3255[facility]11-09-2022 09:27-0500 Diastolic blood xibvmfif56 mm[Hg]Sharath Alvarado MD Work Phone: 1(190)[facility]8566[facility]11-09-2022 09:27-0500Heart rate90 /Olivia Alvarado MD Work Phone: 1(164)[facility]8566[facility]11-09-2022 09:27-0500 Respiratory rate16 /Olivia Alvarado MD Work Phone: 1(997)[facility]66[facility]11-09-2022 09:27-4939PzV6% (BldA) [Mass fraction]100 %Sharath Alvarado MD Work Phone: 1(169)[facility]8566[facility]11-09-2022 09:27-0500Systolic blood rdvvmkzi840 mm[Hg]Sharath Alvarado MD Work Phone: 1(852)[facility]66[facility]10-19-2022 15:11-0400 Diastolic blood qqekmpwm78 mm[Hg]Sharath Alvarado MD Work Phone: 1(122)[facility]66[facility]10-19-2022 15:11-0400Heart rate81 /Olivia Alvarado MD Work Phone: 1(277)[facility]8566[facility]10-19-2022 15:11-0400 Respiratory rate16 /Olivia Alvarado MD Work Phone: 1(578)[facility]8566[facility]10-19-2022 15:11-2281ZuH5% (BldA) [Mass fraction]94 %Sharath Alvarado MD Work Phone: 1(322)[address] [place], [place] 0627810-19-2022 15:11-0400Systolic blood eptlrkvs710 mm[Hg]Sharath Alvarado MD Work Phone: 1(071)[facility]8566[facility]2022 08:19-0400Body mass index (BMI) [Ratio]24.97 kg/x9JkgleeMel Giron MD Work Phone: 1(736)[address] [place], [place] 2871309-14-2022 08:19-0400Body .9 [degF]Mel Giron MD Work Phone: 1(053)[address] [place], [place] 2871309-14-2022 08:19-0400Body qhllyp12.95 kgMel Giron MD Work Phone: 1(779)[address] [place], [place] 2871309-14-2022 08:19-0400 Diastolic blood ylmilzaf09 mm[Hg]Mel Giron MD Work Phone: 1(242)[address] [place], [place] 2871309-14-2022 08:19-0400Heart rate81 /minMel Giron MD Work Phone: 1(162)[address] [place], [place] 2871309-14-2022 08:19-0400 Respiratory rate16 /minMel Giron MD Work Phone: 1(740)[address] [place], [place] 2871309-14-2022 08:19-4784WqS4% (BldA) [Mass fraction]98 %Mel Giron MD Work Phone: 1(703)[address] [place], [place] 2871309-14-2022 08:19-0400Systolic blood trxpmwyq788 mm[Hg]Mel Giron MD Work Phone: 1(593)[address] [place], [place] 2871308-24-2022 14:03-0400Body sobexv937.3 Bashir Alvarado MD Work Phone: 1(934)[facility]66[facility]08-24-2022 14:03-0400Body mass index (BMI) [Ratio]24.91 kg/p4UzzecrSharath Alvarado MD Work Phone: 1()[facility]66[facility]08-24-2022 14:03-0400Body iqmphmmsaeh32.3 [degF]Sharath Alvarado MD Work Phone: 1(106)[facility]8566[facility]08-24-2022 14:03-0400Body ubzolg93.8 kgSharath Alvarado MD Work Phone: 1(866)[facility]66[facility]08-24-2022 14:03-0400 Diastolic blood unqwmjuj98 mm[Hg]Sharath Alvarado MD Work Phone: 1(717)[facility]8566[facility]08-24-2022 14:03-0400Heart rate77 /Olivai Alvarado MD Work Phone: 1(152)[facility]66[facility]08-24-2022 14:03-0400 Respiratory rate14 /Olivia Alvarado MD Work Phone: 1(140)[facility]66[facility]08-24-2022 14:03-2299FbS3% (BldA) [Mass fraction]95 %Sharath Alvarado MD Work Phone: 1(563)[facility]66[facility]08-24-2022 14:03-0400Systolic blood hwyuqunw223 mm[Hg]Sharath Alvarado MD Work Phone: 1(753)[address] [place], [place] 0627808-24-2022 12:58-0400Body aderqo617.3 Chloe Smallwood MD Work Phone: 1(658)[address] [place], [place] 1980808-24-2022 12:58-0400Body mass index (BMI) [Ratio]24.9 kg/e5HudrctcStuart Smallwood MD Work Phone: 1(482)[address] [place], [place] 1980808-24-2022 12:58-0400Body .77 kgStuart Smallwood MD Work Phone: 1(681)[address] [place], [place] 1980808-24-2022 12:58-0400 Diastolic blood mm[Hg]Stuart Smallwood MD Work Phone: 1(406)[address] [place], [place] 1980808-24-2022 12:58-0400Heart rate77 /Nayan Smallwood MD Work Phone: 1(495)[address] [place], [place] 1980808-24-2022 12:58-0400Systolic blood ulahilkj713 mm[Hg]Stuart Smallwood MD Work Phone: [facility]08-17-2022 12:55-0400Body cenpiq009.3 Bashir Alvarado MD Work Phone: 1(457)[facility]8566[facility]08-17-2022 12:55-0400Body mass index (BMI) [Ratio]24.75 kg/w8HdqubrSharath Alvarado MD Work Phone: 1(228)[facility]8566[facility]08-17-2022 12:55-0400Body jpktvzabhdo98.3 [degF]Sharath Alvarado MD Work Phone: 1(624)[facility]8566[facility]08-17-2022 12:55-0400Body fnpbah99.4 kgSharath Alvarado MD Work Phone: 1(438)[facility]8566[facility]08-17-2022 12:55-0400 Diastolic blood apkytejt66 mm[Hg]Sharath Alvarado MD Work Phone: 1(747)[facility]8566[facility]08-17-2022 12:55-0400Heart rate82 /minSharath Alvarado MD Work Phone: 1(059)[facility]8566[facility]08-17-2022 12:55-0400 Respiratory rate14 /minSharath Alvarado MD Work Phone: 1(640)[facility]8566[facility]08-17-2022 12:55-6322WwV8% (BldA) [Mass fraction]95 %Sharath Alvarado MD Work Phone: 1(996)[facility]8566[facility]08-17-2022 12:55-0400Systolic blood lmkogige355 mm[Hg]Sharath Alvarado MD Work Phone: 1(205)2938566[facility]08-17-2022 12:13-0400Body lfsrla278.3 Chloe Smallwood MD Work Phone: 1(207)2934040[facility]08-17-2022 12:13-0400Body mass index (BMI) [Ratio]24.76 kg/w1EmzxacbStuart Smallwood MD Work Phone: 1(661)[address] [place], [place] 1980808-17-2022 12:13-0400Body theromieitf38.3 [degF]Stuart Smallwood MD Work Phone: 1(876)[address] [place], [place] 1980808-17-2022 12:13-0400Body .41 kgStlianna Smallwood MD Work Phone: 1(975)[address] [place], [place] 1980808-17-2022 12:13-0400 Diastolic blood ljakyhst67 mm[Hg]Stuart Smallwood MD Work Phone: 1(929)[address] [place], [place] 1980808-17-2022 12:13-0400Heart rate82 /Nayan Smallwood MD Work Phone: 1(647)[address] [place], [place] 1980808-17-2022 12:13-0400Systolic blood kikbcsmu672 mm[Hg]Stuart Smallwood MD Work Phone: 1(097)[address] [place], [place] [address]808-13-2022 07:18-0400Body pepiltfvdgd93.9 [degF]Stuart Smallwood MD Work Phone: 1(900)[address] [place], [place] 1980808-13-2022 07:18-0400 Diastolic blood cdbisnmj15 mm[Hg]Stuart Smallwood MD Work Phone: 1(016)[address] [place], [place] 1980808-13-2022 07:18-0400Heart rate80 /Nayan Smallwood MD Work Phone: 1(067)[address] [place], [place] 1980808-13-2022 07:18-0400 Respiratory rate14 /Nayan Smallwood MD Work Phone: 1(763)[address] [place], [place] 1980808-13-2022 07:18-1358EqH2% (BldA) [Mass fraction]95 %Stuart Smallwood MD Work Phone: 1(679)[address] [place], [place] 1980808-13-2022 07:18-0400Systolic blood lxuymbrf579 mm[Hg]Stuart Smallwood MD Work Phone: 1(995)[address] [place], [place] 1980808-12-2022 05:19-0400Body qulmnq519.3 cmSdyan Smallwood MD Work Phone: 1(209)[address] [place], [place] 1980808-12-2022 05:19-0400Body mass index (BMI) [Ratio]24.64 kg/l9LlkkdydStuart Smallwood MD Work Phone: 1(047)[address] [place], [place] 1980808-12-2022 05:19-0400Body sklnan20.09 kgStuart Smallwood MD Work Phone: 1(143)[address] [place], [place] 1980807-22-2022 15:22-0400Body mass index (BMI) [Ratio]24.48 kg/b9MpfzavMel Giron MD Work Phone: 1(749)[address] [place], [place] 2871307-22-2022 15:22-0400Body pxflxyhjkzy27.7 [degF]Mel Giron MD Work Phone: 1(842)[address] [place], [place] 2871307-22-2022 15:22-0400Body ymtnsd74.69 kgMel Giron MD Work Phone: 1(542)[address] [place], [place] 2871307-22-2022 15:22-0400 Diastolic blood cgcuedkk06 mm[Hg]Mel Giron MD Work Phone: [phone] [place], [place] 2871307-22-2022 15:22-0400Heart rate67 /Mack Giron MD Work Phone: [phone] [place], [place] 2871307-22-2022 15:22-0400 Respiratory rate16 /Mack Giron MD Work Phone: [phone] [place], [place] 2871307-22-2022 15:22-9737KnV3% (BldA) [Mass fraction]100 %Mel Giron MD Work Phone: 1(909)[address] [place], [place] 2871307-22-2022 15:22-0400Systolic blood pimbuarw101 mm[Hg]Mel Giron MD Work Phone: [phone]07-22-2022 13:15-0400Body mass index (BMI) [Ratio]24.24 kg/u3ElseyDeepti Gomez MD, PhD Work Phone: 1([phone])[facility]ly [facility] [place], [place] 1626007-22-2022 13:15-0400Body exphsreszpt42.7 [degF]Deepti Gomez MD, PhD Work Phone: 1(250)[address] [place], [place] 5482207-22-2022 13:15-0400Body cmelnb32.05 kgDeepti Gomez MD, PhD Work Phone: 1(574)[address] [place], [place] 5482207-22-2022 13:15-0400 Diastolic blood qclhlemp04 mm[Hg]Deepti Gomez MD, PhD Work Phone: 1(894)[address] [place], [place] 5482207-22-2022 13:15-0400Heart rate69 /Angel Gomez MD, PhD Work Phone: 1(333)[address] [place], [place] 5482207-22-2022 13:15-0400 Respiratory rate16 /Angel Gomez MD, PhD Work Phone: 1(832)[address] [place], [place] 5482207-22-2022 13:15-4963DpD7% (BldA) [Mass fraction]99 %Deepti Gomez MD, PhD Work Phone: 1(732)[address] [place], [place] 5482207-22-2022 13:15-0400Systolic blood mm[Hg]Deepti Gomez MD, PhD Work Phone: 1(997)[address] [place], [place] 5482207-20-2022 08:59-0400Body .3 cmKattwyla Pereirae BUSINESS DEVELOPMENT ASSISTANT-BUILD AND RELEASE MANAGER Work Phone: [phone] [place], [place] 5321407-20-2022 08:59-0400Body mass index (BMI) [Ratio]24.41 kg/x0Gxtbckicw Olivas BUSINESS DEVELOPMENT ASSISTANT-BUILD AND RELEASE MANAGER Work Phone: [phone])[address] [place], [place] 2636607-20-2022 08:59-0400Body gsafgk26.5 kgKatherine Olivas BUSINESS DEVELOPMENT ASSISTANT-BUILD AND RELEASE MANAGER Work Phone: [phone] [place], [place] 2636607-20-2022 08:59-0400 Diastolic blood ufoxtgqo55 mm[Hg]Marlene Olivas BUSINESS DEVELOPMENT ASSISTANT-BUILD AND RELEASE MANAGER Work Phone: [phone])[address] [place], [place] 2636607-20-2022 08:59-0400Heart rate82 /minKatherine Olivas BUSINESS DEVELOPMENT ASSISTANT-BUILD AND RELEASE MANAGER Work Phone: 1(679)[address] [place], [place] 2636607-20-2022 08:59-0400Systolic blood jetcmsib647 mm[Hg]Marlene Olivas BUSINESS DEVELOPMENT ASSISTANT-BUILD AND RELEASE MANAGER Work Phone: 1(525)[address] [place], [place] 2636607-06-2022 07:34-0400Body ihwowc235.3 Bashir Alvarado MD Work Phone: 1(532)[address] [place], [place] 0627807-06-2022 07:34-0400Body mass index (BMI) [Ratio]24.48 kg/y5VjwhjfSharath Alvarado MD Work Phone: 1([phone])[address] [place], [place] 0627807-06-2022 07:34-0400Body bsofpbvczbu94.1 [degF]Sharath Alvarado MD Work Phone: 1([phone])[address] [place], [place] 0627807-06-2022 07:34-0400Body xybamm04.69 kgSharath Alvarado MD Work Phone: 1(475)[address] [place], [place] 0627807-06-2022 07:34-0400 Diastolic blood erymiqbg00 mm[Hg]Sharath Alvarado MD Work Phone: 1(707)[address] [place], [place] 0627807-06-2022 07:34-0400Heart rate67 /Olivia Alvarado MD Work Phone: 1(769)[address] [place], [place] 0627807-06-2022 07:34-0400 Respiratory rate16 /Olivia Alvarado MD Work Phone: 1(782)[address] [place], [place] 0627807-06-2022 07:34-1819GxN0% (BldA) [Mass fraction]98 %Sharath Alvarado MD Work Phone: [facility]07-06-2022 07:34-0400Systolic blood gwcojfqs827 mm[Hg]Sharath Alvarado MD Work Phone: [phone]07-01-2022 09:14-0400 Diastolic blood mm[Hg]Marlene Deisy BUSINESS DEVELOPMENT ASSISTANT-BUILD AND RELEASE MANAGER Work Phone: [phone]07-01-2022 09:14-0400Systolic blood gjprjxim355 mm[Hg]Marlene Olivas BUSINESS DEVELOPMENT ASSISTANT-BUILD AND RELEASE MANAGER Work Phone: 1(166)[facility]0011[facility]06-28-2022 08:36-0400Body .3 Chloe [place] MD Work Phone: [phone])[address] [place], [place] 1980806-28-2022 08:36-0400Body mass index (BMI) [Ratio]24.83 kg/z8BzlzsozStuart [place] MD Work Phone: 1(952)[address] [place], [place] 1980806-28-2022 08:36-0400Body wbinihjkbzc23.9 [degF]Stuart [place] MD Work Phone: 1(220)[address] [place], [place] 1980806-28-2022 08:36-0400Body mrvuzc61.59 kgStuart [place] MD Work Phone: [phone]06-28-2022 08:36-0400 Diastolic blood tyzkytek32 mm[Hg]Stuart [place] MD Work Phone: 1(388)[address] [place], [place] 1980806-28-2022 08:36-0400Heart rate80 /Nayan [place] MD Work Phone: 1(643)[address] [place], [place] 1980806-28-2022 08:36-0400 Respiratory rate14 /Nayan [place] MD Work Phone: [facility]06-28-2022 08:36-0400Systolic blood wxzycpvn052 mm[Hg]Stuart [place] MD Work Phone: [facility] Encounters Encounter DateEncounter TypeCare ProviderFacilityStart: 07-10-2025 End: 11-93-5206iowccmcxjsZbwnnz E Braun MD Work Phone: [phone] 507-5494077-7828-Wbpuwtnwd Health PulmonaryStart: 07-10-2025 End: 77-17-5877Glulyvu encounter procedureSola Cross APRN [facility] Work Phone: Start: 66-69-0582Gsoargv encounter procedureTucker [place] MD Work Phone: [facility]: 06-05-2025 End: 30-20-7639jjuozeqcntGgxvbc E Braun MD Work Phone: [facility] Work Phone: Start: 06-05-2025 End: 15-58-2073Ydscdqg encounter procedureTucker [place] MDFirelands Regional Medical Center Work Phone: Start: 04-12-2025 End: 33-44-5103Mkyqsdn encounter Tirso Romero DO Work Phone: noms [facility] OrthopaedicsComment on above:S/P total knee arthroplasty, left (Primary Dx)Start: 04-12-2025 End: 98-30-3203wilsgbzowbPFOSJ A BROWNNot AvailableStart: 04-11-2025 End: 37-16-0084Qokiam flowsheetSammantha Pereyra PTNOMS [facility] Start: 04-11-2025 End: 12-51-5813Qvicoi flowsheetSammantha Pereyra PTNOMS [facility] Start: 04-11-2025 End: 61-27-4001Mavwurzpm to same day surgery centerSammantha Pereyra PTNOMS [facility]ancio Physical TherapyComment on above:Primary osteoarthritis of left knee (Primary Dx); Aftercare following left knee joint replacement surgery; Internal derangement of left kneeStart: 04-11-2025 End: 65-28-2288upvdvhxulqAftcgcxzp Pereyra PTNOMS [facility] TherapyStart: 04-04-2025 End: 34-52-0020Ytpjljztp to same day surgery centerSammantha Pereyra PTNOMS [facility] Physical TherapyComment on above:Primary osteoarthritis of left knee (Primary Dx); Aftercare following left knee joint replacement surgeryStart: 04-04-2025 End: 76-74-4521fzdlcdtyfcNvetsqigg Pereyra PTNOMS [facility] TherapyStart: 04-04-2025 End: 37-68-1213Jcvjdr flowsheetSammantha Pereyra PTNOMS [facility] Start: 04-04-2025 End: 92-76-0150Qzepfa flowsheetSammantha Pereyra PTNOMS [facility] Start: 03-30-2025 End: 07-88-3205Qufbwb flowsheetSammantha Pereyra PTNOMS [facility] Start: 03-30-2025 End: 14-35-7165Zxafei flowsheetSammantha Pereyra PTNOMS [facility] Start: 03-30-2025 End: 41-58-9294Lykhdejpn to same day surgery centerSammantha Pereyra PTNOMS [facility] Physical TherapyComment on above:Primary osteoarthritis of left knee (Primary Dx); Aftercare following left knee joint replacement surgery; Internal derangement of left kneeStart: 03-30-2025 End: 79-76-7345nuuxuwsmpmIyaghacot Pereyra PTNOMS [facility] TherapyStart: 03-28-2025 End: 31-45-8529Pntros outpatient visit 15 minutesStlianna [place] MD Work Phone: Division of Surgical OncologyComment on above:Personal history of malignant neoplasm of breast (Primary Dx)Start: 03-28-2025 End: 88-08-7970Iupkpl outpatient visit 15 minutesArnaldo MACHADO Work Phone: [facility] CountyComment on above:Malignant neoplasm of lower-inner quadrant of right breast of female, estrogen receptor positive (Primary Dx) Start: 03-28-2025 End: 94-50-5884Pplulbfbmb hospital visit by Idris [place] MD Work Phone: [facility] Breast BoiseComment on above:ArrivedStart: 08-18-5691frhariuhky TUCKER HAYWOODFacility:JAMESStart: 03-23-2025 End: 92-20-9015Vjhloe flowsheetSammantha Pereyra PTNOMS CI PTStart: 03-23-2025 End: 51-56-1629Drsupv flowsheetSammantha Pereyra PTNOMS CI PTStart: 03-23-2025 End: 12-98-5775Borzjromz to same day surgery centerSammantha Pereyra PTNOMS CI PTComment on above:Primary osteoarthritis of left knee (Primary Dx); Aftercare following left knee joint replacement surgeryStart: 03-23-2025 End: 66-66-7362clucyowprvGwqclluws Pereyra PTNOMS CI PTStart: 03-15-2025 End: 78-30-8341Mhpfskv encounter procedureBa Romero DO Work Phone: noMS NB ORTHOComment on above:S/P total knee arthroplasty, left (Primary Dx)Start: 03-15-2025 End: 13-60-3501iozsfmrfeaIZXRB A BROWNNot AvailableStart: 03-15-2025 End: 27-07-7381sdsheacmhvIOLEK A BROWNNot AvailableStart: 02-28-2025 End: 75-91-1400Csrnzchvx Result EncounterBa Romero DO Work Phone: NOHH External Department UnsolicitedStart: 02-28-2025 End: 78-95-4460Dftuumwxx Result EncounterBa Romero DO Work Phone: noms External Department UnsolicitedStart: 02-28-2025 End: 97-23-6099Mrbmacrre to same day surgery Emanuel Romero [facility] Start: 02-28-2025 End: 65-29-7250glhwdgnyfmPG Ba RomeroFacility:FTMCStart: 02-20-2025 End: 89-89-3485yqyixdwltaMgtxtoxrc Pereyra PTNOMS CI PTComment on above: Primary osteoarthritis of left knee (Primary Dx)Start: 02-20-2025 End: 95-68-1368Jkyuua flowsheetSammantha Pereyra PTNOMS CI PTStart: 02-20-2025 End: 10-18-6146Wgnwah flowsheetSammantha Pereyra PTNOMS CI PTStart: 02-13-2025 End: 96-21-3908Xkzijdxte Result EncounterBa Romero DO Work Phone: NOMS External Department UnsolicitedStart: 02-13-2025 End: 80-87-3078Eohkilolq Result EncounterKvnglauren Romero DO Work Phone: NOMS External Department UnsolicitedStart: 02-13-2025 End: 39-32-0411prggbivjluPyvts A BrownFacility:FTMCStart: 02-13-2025 End: 72-45-0877Zbfebgq encounter procedureBa Romero [facility] Start: 02-12-2025 End: 38-54-8630Kpsrdo flowsNandini Romero DO Work Phone: NOMS ORTHOStart: 02-12-2025 End: 24-19-3578Vvbvwr flowsNandini Romero DO Work Phone: [phone] ORTHOStart: 02-12-2025 End: 01-96-1629Acjoupz encounter procedureBa Sahra James DO Work Phone: NOMS NB ORTHOComment on above:Left knee pain, unspecified chronicity (Primary Dx)Start: 02-12-2025 End: 73-47-6079qxqrivgsynUPZFC A BROWNNot AvailableStart: 01-04-2025 End: 68-03-7324vwvtnrcnyoMduuaiacmTrinity Health System Work Phone: Start: 01-04-2025 End: 45-35-4851Tcdtvao encounter procedureNov[facility] Phys[facility] GroupFirelands Regional Medical Center Work Phone: Start: 01-01-2025 End: 50-29-7659fqaubvstkoQCYCV A BROWNNot AvailableStart: 12-20-2024 End: 92-07-1418Bulyudikl Result EncounterBa Romero DO Work Phone: noms External Department UnsolicitedStart: 12-20-2024 End: 94-30-8200Hpxfdzrfj Result EncounterBa Romero DO Work Phone: noms External Department UnsolicitedStart: 12-20-2024 End: 68-60-2549Hxkfoyfuc to same day surgery centerBa Romero [facility] Start: 12-20-2024 End: 92-77-7932maywmhdxzgTsctn A BrownFacility:FTMCStart: 12-19-2024 End: 05-64-0332lsygyfnjfrMmhqiavrlMiami Valley Hospital Work Phone: Start: 12-19-2024 End: 95-16-0545Grkvxww encounter procedureBriancentra [facility] Physician GroupFirelands Regional Medical Center Work Phone: Start: 12-18-2024 End: 99-04-4313girxdbrnutWzbjitfkaMiami Valley Hospital Work Phone: Start: 12-18-2024 End: 49-12-2384Sbmkdbh encounter procedureNovant Health [facility] Phys[facility] GroupCritical [facility] Hospital [facility] Work Phone: Start: 12-07-2024 End: 91-17-4819fplptcpmkcOCBettina Garciacility:FTMCStart: 12-07-2024 End: 90-62-1062Douondw encounter Tirso Romero [facility] Start: 11-16-2024 End: 32-97-8487Rmsubiv encounter procedureJason A Brown DO Work Phone: NOMS NB ORTHOComment on above:S/P reverse total shoulder arthroplasty, right (Primary Dx)Start: 11-16-2024 End: 13-81-6628ophwaqauizLBYOC A BROWNNot AvailableStart: 11-16-2024 End: 47-40-4739jpfncvlejyVSXLA A BROWNNot AvailableStart: 2024 End: 02-82-0033Cfzsqm flowsheetBa Sahra Romero DO Work Phone: NOMS ORTHOStart: 2024 End: 67-57-9575Hgytkj flowsheetBa Romero DO Work Phone: NOMS ORTHOStart: 2024 End: 97-32-2265Zdhiwsf encounter procedureBa Sahra Romero DO Work Phone: NOMS NB ORTHOComment on above:Left knee pain, unspecified chronicity (Primary Dx)Start: 2024 End: 72-68-9497fjfphkwbgmEQWFU A BROWNNot AvailableStart: 08-14-2024 End: 66-75-0669Hsjyiehi Support EncounterMel Valdes MD Work Phone: Hope's BoutiqueComment on above:Malignant neoplasm of lower-inner quadrant of right breast of female, estrogen receptor positive (Pr imary Dx)Start: 25-30-3883rgxhbpmifjREQUP L RUHAFacility:JAMESStart: 08-14-2024 End: 22-45-5741Jmbqgyweyn hospital visit by physicianMel Valdes MD Work Phone: Department of RadiologyComment on above:ArrivedStart: 07-25-2024 End: 61-03-9251ebeqkanamcJJYUJ A BROWNNot AvailableStart: 07-25-2024 End: 00-29-9224Uegapjv encounter procedureBa Romero Work Phone: NOMS NB ORTHOComment on above:S/P reverse total shoulder arthroplasty, right (Primary Dx)Start: 06-13-2024 End: 31-53-6574Qcnyqog encounter procedureBa Romero DO Work Phone: NOMS NB ORTHOComment on above:Left knee pain, unspecified chronicityStart: 06-13-2024 End: 99-34-7873xqkxewndtqEBKOD A Roger AvailableStart: 06-13-2024 End: 49-67-9363Tymgma flowsheetBa Romero DO Work Phone: [phone] ORTHOStart: 06-13-2024 End: 60-65-3897Nqehvw flowsheetBa Romero DO Work Phone: [phone] ORTHOStart: 05-23-2024 End: 45-69-6261Nqrkckc encounter procedureBa Romero DO Work Phone: [phone] NB ORTHOComment on above:Arthritis of right shoulder region (Primary Dx)Start: 05-23-2024 End: 17-80-1302vgfowauixiOACLK A Roger AvailableStart: 05-23-2024 End: 35-00-0476aganasncblYMJIN A Roger AvailableStart: 05-10-2024 End: 91-58-2110Bpmpricnc Result EncounterBa Romero DO Work Phone: NOMS External Department UnsolicitedStart: 05-10-2024 End: 45-05-1369Feagcwgea Result EncounterBa Romero DO Work Phone: NOMS External Department UnsolicitedStart: 05-10-2024 End: 08-39-0317Gmrvslazr to same day surgery Emanuel Sahra James [facility] Start: 05-10-2024 End: 13-69-3127kkfxbuhevrNwjrn Sahra JamesFacility:FTMCStart: 04-25-2024 End: 75-90-3508Mpvzda otiliaNandini Romero DO Work Phone: NOMS ORTHOStart: 04-25-2024 End: 24-09-5080Tiuknf Holly Romero DO Work Phone: NOMS ORTHOStart: 04-25-2024 End: 63-75-8329Hfbbftzwb Result EncounterBa Romero DO Work Phone: NOMS External Department UnsolicitedStart: 04-25-2024 End: 42-16-7851pwedepemumWraga A BrownFacility:FTMCStart: 04-25-2024 End: 43-81-1791Fpgrvze encounter procedureBa Romero [facility] Comment on above:Arthritis of right shoulder region (Primary Dx); Avascular necrosis of bone of shoulder (CMS/HCC)Start: 04-25-2024 End: 16-96-6301ivpcjhixpbNQDAQ A BROWNNot AvailableStart: 03-22-2024 End: 20-88-7153Bxxoyhkz Support EncounterMel Valdes MD Work Phone: Hope's BoutiqueComment on above:Malignant neoplasm of lower-inner quadrant of right breast of female, estrogen receptor positive (Pr imary Dx)Start: 03-22-2024 End: 38-26-8530Wibucs outpatient visit 15 minutesStuart Samllwood MD Work Phone: Division of Surgical OncologyComment on above:Personal history of malignant neoplasm of breast (Primary Dx)Malignant neoplasm of lower-inner quadrant of right breast of female, estrogen receptor positive (Pr imary Dx); Postmenopausal; Aromatase inhibitor useStart: 03-22-2024 End: 73-96-6701Kpfcdb outpatient visit 25 minutesArnaldo Escobedo APRN-BUILD AND RELEASE MANAGER Work Phone: Department of Radiation OncologyComment on above: Malignant neoplasm of lower-inner quadrant of right breast of female, estrogen receptor positive (Primary Dx)Start: 03-22-2024 End: 07-05-1337Hbfurhlnux hospital visit by physicianMel Valdes MD Work Phone: [facility] Hospitaltart: 80-07-7962Sfgvrmwlk encounterAndreina Oneal PA-C Work Phone: OrthopaedicsStart: 01-21-2024 End: 66-06-3500yyvyyxoixdXQAS TALBOTFacility:[facility] Hospitaltart: 01-21-2024 End: 43-21-9825Jnrfwyx encounter Zeferino Oneal PA-C Work Phone: OrthopaedicsComment on above:Acute medial meniscus tear of left knee, initial encounter (Primary Dx); Primary osteoarthritis of left kneeStart: 10-15-2023 End: 94-08-2493myncmyejjdUpivu GastFacility:[facility] Start: 10-15-2023 End: 33-73-4564cnpgceiueeVS Marcia E Braun Work Phone: [facility] Work Phone: Start: 10-15-2023 End: 22-92-6381Iccsioo encounter procedureMD Tucker [place] Work Phone: [facility] [place] Work Phone: Start: 09-08-2023 End: 74-34-9026Grlvbg follow up visit related to original Halle Alvarado MD Work Phone: Department of Plastic SurgeryComment on above:Acquired absence of breast, unspecified laterality (Primary Dx)Start: 09-08-2023 End: 98-60-6364Czyahfkm Support EncounterMel Giron MD Work Phone: Hope's BoutiqueComment on above:Personal history of malignant neoplasm of breast (Primary Dx)Start: 09-08-2023 End: 32-22-1192Iavvoj outpatient visit 25 minutesMel Giron MD Work Phone: [facility] Breast [place]Comment on above:Malignant neoplasm of lower-inner quadrant of right breast of female, estrogen receptor positive (Primary Dx); Hot flashes related to aromatase inhibitor therapy; Encounter for monitoring aromatase inhibitor therapyStart: 07-21-2023 End: 95-99-0164Uicomp follow up visit related to original Halle Alvarado MD Work Phone: Department of Plastic SurgeryComment on above: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)Start: 07-14-2023 End: 86-81-8287zxhrffzpnxKcnxg Danita Other noVig[employer] Other Start: 20-66-7176Apbylz outpatient visit 25 minutes Sola GastFPG Pulmonary DiseaseStart: 07-07-2023 End: 81-19-3270jubcxfjbnoMkaou GastFacility:[facility] Start: 07-07-2023 End: 55-70-7152uthmtsnnfnEU Tucker [place] Work Phone: [facility] Work Phone: Start: 07-07-2023 End: 34-36-9870Evbbqau encounter procedureMD Tucker [place] Work Phone: [facility] [place] Work Phone: Start: 06-30-2023 End: 82-68-4974Xnjvjgh encounter Hanna Alvarado MD Work Phone: Department of Plastic SurgeryComment on above: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)Start: 06-17-2023 End: 89-53-9931tnutcyzdqxAesdje Braun Other [facility] [employer] Other Start: 79-10-2714Wkboxj outpatient visit 15 minutes [facility]tart: 06-14-2023 End: 30-50-1986nfhbqlnfdpGmsrv Danita Other [employer] Other Start: 33-63-2970Xerhpzdvk encounterHeidi GastFPG Pulmonary DiseaseStart: 06-09-2023 End: 84-86-5333Clresf outpatient visit 15 minutesArnaldo MACHADO Work Phone: [facility] Oncology [facility] Breast [place]Comment on above:Malignant neoplasm of lower-inner quadrant of right breast of female, estrogen receptor positive (Primary Dx) Start: 05-20-2023 End: 88-32-3688ingvqdzvthPlgsl Danita Other [employer]Local[employer] Other Start: 56-58-2615Ntepagbvw encounterHeidi GastFPG Referral CoordinatorStart: 05-19-2023 End: 31-61-3863lxrrlzygnjKsyjj Danita Other [employer] Other Start: 48-71-6121Rjnxat outpatient new 45 minutesHeidi GastFPG Pulmonary DiseaseStart: 05-11-2023 End: 14-25-6324epwblskxaxWvwzxa Braun Other [employer] Other Start: 56-17-7947Epdecg outpatient visit 15 minutes Tucker [facility]eng [facility]Start: 02-25-2023 End: 53-90-4802rluczlgymeWwzjl Danita Other [employer] Other Start: 08-82-9453Mdopezopb encounterHeidi GastFPG Referral CoordinatorStart: 02-24-2023 End: 31-34-2523Ithvtu outpatient visit 15 minutesSharath Alvarado MD Work Phone: Department of Plastic SurgeryComment on above: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)Start: 02-18-2023 End: 20-50-0248hyfoxggggjIjoxtw Braun Other [employer] Other Start: 62-89-8520Nlubgs outpatient visit 15 minutes Tucker [facility]Start: 02-09-2023 End: 32-23-3904ihvntdtwiqTupuss Braun Other [employer] Other Start: 03-60-3188Jeecajasl encounterTucker Deng [facility]tart: 01-27-2023 End: 03-32-5220Hyvzcs outpatient visit 15 minutesStuart Smallwood MD Work Phone: Division of Surgical OncologyComment on above: Malignant neoplasm of lower-inner quadrant of right breast of female, estrogen receptor positive (Primary Dx)Start: 01-27-2023 End: 91-51-0772Urcgpxrfjn hospital visit by Idris [place] MD Work Phone: [facility] Rankintart: 12-09-2022 End: 96-06-6415Tlxncd outpatient visit 10 minutesSharath Alvarado MD Work Phone: Department of Plastic SurgeryComment on above: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)Start: 11-27-2022 End: 80-56-7953fuybzawcrlEbqrjp Adolfo Other [facility] [employer] Other Start: 46-79-8857Ydevxm outpatient visit 15 minutes Tucker Deng [facility]ennialtart: 10-07-2022 End: 73-88-9962Rnqnhgku Support EncounterSdu Escobedo BUSINESS DEVELOPMENT ASSISTANT-BUILD AND RELEASE MANAGER Work Phone: Hope's BoutiqueComment on above:History of breast cancer (Primary Dx)Start: 10-07-2022 End: 38-04-4071Djovta outpatient visit 15 minutesArnaldo Escobedo BUSINESS DEVELOPMENT ASSISTANT-BUILD AND RELEASE MANAGER Work Phone: Department of Radiation OncologyComment on above: Malignant neoplasm of lower-inner quadrant of right breast of female, estrogen receptor positive (Primary Dx)Start: 09-04-2022 End: 84-00-8493Atfjbdl encounter Darek Gomez MD, PhD Work Phone: Department of Radiation OncologyComment on above: Malignant neoplasm of lower-inner quadrant of right breast of female, estrogen receptor positive (Primary Dx)Start: 08-18-2022 End: 15-59-0921Vjufwzs encounter procedureSjabier Gomez MD, PhD Work Phone: Department of Radiation OncologyComment on above: Malignant neoplasm of lower-inner quadrant of right breast of female, estrogen receptor positive (Primary Dx)Start: 08-14-2022 End: 67-83-0111Eamuonj encounter procedureSjabier Gomez MD, PhD Work Phone: Department of Radiation OncologyComment on above: Malignant neoplasm of lower-inner quadrant of right breast of female, estrogen receptor positive (Primary Dx)Start: 08-12-2022 End: 79-25-8455Skhnis follow up visit related to original Halle Alvarado MD Work Phone: Department of Plastic SurgeryComment on above: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)Start: 08-12-2022 End: 66-53-6579Rchuto outpatient visit 15 minutesMel Giron MD Work Phone: [facility] CountyComment on above:Malignant neoplasm of lower-inner quadrant of right breast of female, estrogen receptor positive (Primary Dx); Hot flashes due to menopauseStart: 08-12-2022 End: 80-17-7097Bxsyvgipgv hospital visit by physicianMel Giron MD Work Phone: Department of RadiologyStart: 07-31-2022 End: 84-65-8509Vwphrpgf Support EncounterSjabier Gomez MD, PhD Work Phone: Department of Radiation OncologyComment on above: Malignant neoplasm of lower-inner quadrant of right breast of female, estrogen receptor positive (Primary Dx)Start: 07-31-2022 End: 19-72-6206Oettky outpatient visit 25 minutesDeepti Gomez MD, PhD Work Phone: Department of Radiation OncologyComment on above: Malignant neoplasm of lower-inner quadrant of right breast of female, estrogen receptor positive (Primary Dx)Start: 07-08-2022 End: 35-17-9844Atrfwu follow up visit related to original Halle Alvarado MD Work Phone: Department of Plastic SurgeryComment on above: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)Start: 06-17-2022 End: 98-19-2563Hmrcvxr encounter Hanna Alvarado MD Work Phone: Department of Plastic SurgeryComment on above: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)Start: 05-20-2022 End: 09-80-0648Coysqwb encounter Hanna Alvarado MD Work Phone: Department of Plastic SurgeryComment on above: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)Start: 05-13-2022 End: 34-06-6049Uyapgw outpatient visit 40 [facility] Terry Land APRN-[facility] Work Phone: [facility] Breast BoiseComment on above:Malignant neoplasm of lower-inner quadrant of right breast of female, estrogen receptor positive (Primary Dx) Start: 04-29-2022 End: 80-32-4382Icewswtuk to same day surgery centerSharath Alvarado MD Work Phone: Department of Plastic SurgeryComment on above: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)Start: 04-22-2022 End: 19-73-5307Tboyxr follow up visit related to original Halle Alvarado MD Work Phone: Department of Plastic SurgeryComment on above:Acquired absence of breast, unspecified laterality (Primary Dx)Start: 04-22-2022 End: 68-35-9323Srahhj follow up visit related to original Yg Smallwood MD Work Phone: Division of Surgical OncologyComment on above: Malignant neoplasm of lower-inner quadrant of right breast of female, estrogen receptor positive (Primary Dx)Start: 04-15-2022 End: 71-82-3461Ndqipz follow up visit related to original Yg Smallwood MD Work Phone: Division of Surgical OncologyComment on above: Malignant neoplasm of lower-inner quadrant of right breast of female, estrogen receptor positive (Primary Dx); Personal history of malignant neoplasm of breastAcquired absence of breast, unspecified laterality (Primary Dx)Start: 04-10-2022 End: 67-56-5113Aetweqrjie hospital visit by Kenton Méndez APRN-BUILD AND RELEASE MANAGER Work Phone: Nuclear Med Jose Roberto PreOp CCCT 4Comment on above:Arrived Malignant neoplasm of lower-inner quadrant of right breast of female, estrogen receptor positiveStart: 03-20-2022 End: 50-12-6992Exkorg outpatient new 60 Alberta Giron MD Work Phone: [facility] Oncology at [facility] Smith CountyComment on above:Malignant neoplasm of lower-inner quadrant of right breast of female, estrogen receptor positiveStart: 03-20-2022 End: 71-71-8281Tuvsdl outpatient new 60 Jayleen Gomez MD, PhD Work Phone: Department of Radiation OncologyComment on above: Malignant neoplasm of lower-inner quadrant of right breast of female, estrogen receptor positive (Primary Dx)Start: 03-18-2022 End: 07-64-4987Vphgqyz encounter Dez Olivas BUSINESS DEVELOPMENT ASSISTANT-BUILD AND RELEASE MANAGER Work Phone: [facility] Start: 03-18-2022 End: 94-96-5384Gcxvjvbmqx hospital visit by Ayleen Olivas BUSINESS DEVELOPMENT ASSISTANT-BUILD AND RELEASE MANAGER Work Phone: [facility] Start: 03-11-2022 End: 69-01-9534Odeywfmjxt hospital visit by Ayleen Olivas BUSINESS DEVELOPMENT ASSISTANT-BUILD AND RELEASE MANAGER Work Phone: [facility] Comment on above:Canceled (Cancel Reason Not Listed - Please provide detailed information)Start: 03-04-2022 End: 91-52-7235Umftyn consultation new/estab patient 40 minAlbert H Christiano MD Work Phone: Department of Plastic SurgeryComment on above: Malignant neoplasm of lower-inner quadrant of right breast of female, estrogen receptor positiveStart: 02-27-2022 End: 45-86-4163Swyclqg encounter statusMarlene Olivas BUSINESS DEVELOPMENT ASSISTANT-BUILD AND RELEASE MANAGER Work Phone: department of RadiologyStart: 02-27-2022 End: 89-63-0107Tpzulnrfbf hospital visit by Ayleen Olivas BUSINESS DEVELOPMENT ASSISTANT-[facility] Work Phone: department of RadiologyComment on above:ArrivedStart: 02-24-2022 End: 53-42-0931Arwdnuudsi hospital visit by Idris Smallwood MD Work Phone: Department of RadiologyComment on above:ArrivedStart: 02-24-2022 End: 27-67-4895Yxrkoc outpatient new 60 minutesStlianna Smallwood MD Work Phone: Division of Surgical OncologyComment on above: Malignant neoplasm of lower-inner quadrant of right breast of female, estrogen receptor positive (Primary Dx); Pre-op testingStart: 02-24-2022 End: 52-69-1194Ynxonig encounter statusStuart Smallwood MD Work Phone: Division of Surgical OncologyStart: 02-18-2022 End: 62-55-0951Fyybbcqyky hospital visit by Kenton Méndez BUSINESS DEVELOPMENT ASSISTANT-[facility] Work Phone: [facility]ethod[facility] Care Mammography at [facility] Breast BoiseComment on above:ArrivedStart: 01-20-2022 End: 26-83-0802ubibauxszvKN MARCIA E BRAUNFacility:N3Udwnp: 01-15-2022 End: 00-22-6065ajpbsmyqcaKF MARCIA E BRAUNFacility:E8Pjhxz: 06-16-2021 End: 99-91-6722tfxyzwbicvMZGood HAYWOODFacility:H1 Procedures DateProcedureProcedure DetailPerforming ClinicianStart: 33-48-8935Bawdfycqbw examination knee 3 viewsBa Romero DO Work Phone: Start: 81-50-7234Oewqkrfcvg mammography computer-aided detcj Edin Santiago BUSINESS DEVELOPMENT ASSISTANT-BUILD AND RELEASE MANAGER Work Phone: Start: 14-85-8534Epnpbfxkis examination knee 3 views Ba Romero DO Work Phone: Start: 47-83-8652XN KNEE 1 OR 2 VIEWS LEFTBa Romero [employer] Work Phone: Start: 48-48-6725Afzcg knee replacementJason James Start: 84-51-1786GC LOWER EXTREMITY W/O CONTRAST LEFT Ba Romero [employer] Phone: Start: 50-43-2656YZ WITH CULT RFLXBa Romero [employer] Work Phone: Start: 13-92-0684BS KNEE 1 OR 2 VIEWS Shorty Romero DO Work Phone: Start: 40-96-3432Ttzbmppygvo of kneeKvngson [employer] Start: 85-96-3803Ouwot shoulder complete minimum 2 viewsBa Romero DO Work Phone: Start: 23-60-8041Ekxgtqhaivkxes aspir&/inj major jt/bursa w/o usKvngson Sahra Romero DO Work Phone: Start: 74-72-5190Til bone density study 1/> sites axial Tae Land BUSINESS DEVELOPMENT ASSISTANT-BUILD AND RELEASE MANAGER Work Phone: Start: 34-72-3205Orpcm shoulder complete minimum 2 viewsBa Romero DO Work Phone: Start: 61-45-8379Xdejpigvbrdlce aspir&/inj major jt/bursa w/o usKvngson A James DO Work Phone: Start: 33-23-7826Jegem shoulder complete minimum 2 viewsKvngson Sahra Romero DO Work Phone: start: 99-71-5811EX SHOULDER COMPLETE RIGHTBa Romero DO Work Phone: Start: 93-66-1205Xgsmuin prosthetic total arthroplasty of right shoulderBa Romero Start: 03-17-2054PO UPPER EXTREMITY W/O CONTRAST RIGHT Ba Romero DO Work Phone: Start: 38-48-2555CG WITH CULT RFLXBa Romero DO Work Phone: Start: 44-31-1646Euwvvaxytg mammography computer-aided detcj Edin Santiago BUSINESS DEVELOPMENT ASSISTANT-BUILD AND RELEASE MANAGER Work Phone: Start: 11-84-5855QZ of thorax with contrastMD Tucker Haywood Work Phone: Start: 34-64-4118Ykamlflrlo mammography computer-aided detcj Edin Méndez BUSINESS DEVELOPMENT ASSISTANT-BUILD AND RELEASE MANAGER Work Phone: Start: 33-76-3339Etk bone density study 1/> sites axial Jesus Giron MD Work Phone: Start: 37-91-5914HMESNES RECORDOther OtherStart: 06-64-7379DFRAUIWOXQ CARDIAC MONITORING STRIPOther OtherStart: 06-99-7494Jnr radioactive tracer for id of sentinel nodePrakash Méndez BUSINESS DEVELOPMENT ASSISTANT-BUILD AND RELEASE MANAGER Work Phone: Start: 98-20-3473HAZOJPREGI CARDIAC MONITORING STRIP Other OtherStart: 82-76-5814Hzttagyrlr spect multiple studiesKattwyla Corona Olivas BUSINESS DEVELOPMENT ASSISTANT-BUILD AND RELEASE MANAGER Work Phone: start: 81-07-1731JXR w/o fol w/cont, breast,Marlene Corona Olivas BUSINESS DEVELOPMENT ASSISTANT-BUILD AND RELEASE MANAGER Work Phone: start: 55-64-0644Jalrvybsdb exam chest 2 views Marlene Corona Olivas BUSINESS DEVELOPMENT ASSISTANT-BUILD AND RELEASE MANAGER Work Phone: start: 02-24-2022 End: 80-10-6937Pp breast uni real time with image limitedMarlene Corona Olivas BUSINESS DEVELOPMENT ASSISTANT-BUILD AND RELEASE MANAGER Work Phone: start: 53-59-9913OH Breast ViewsLinemmakam Méndez BUSINESS DEVELOPMENT ASSISTANT-BUILD AND RELEASE MANAGER Work Phone: Start: 17-26-3641Ydtsx 1995 panel - Serum or Plasma Andreina Oneal PA-C Work Phone: Start: 82-92-0426Lyegt assisted in situ keratomileusis Ba Romero Start: 04-01-4227Jlkdtu of stress incontinence by suprapubic slingBa Romero Start: 07-97-6079Qqvg (qualifier value)Ba Romero Start: 02-22-3232Vhafq thoracic outlet syndromeBa Romero Start: 35-04-3910Otszlbnpbccxs of median nerveBa Romero Start: 80-31-1864Jvxvyg of anterior cruciate ligament of knee jointBa Romero Start: 58-20-2360Ejhbvn of ulnar digital nerveBa Romero Abdominal hysterectomyBa Romero History of mastectomyBa Romero Plan of Treatment DateCare ActivityDetailAuthorStart: 45-06-6074Jkwnbtho ScreeningDiabetes ScreeningKettering Health Prebletart: 04-02-2026 End: 92-88-4220Zuayuay encounter procedureJames Care Mammography [facility] Breast [facility]: 03-28-2026 End: 28-12-9915SJ Breast ViewsMAMMO DIAGNOSTIC WITH ADRIEL LEFT Imaging Routine Personal history of malignant neoplasm of breast Expected: 03/28/2026, Expires: 04/28/2026OS[facility] Memorial HospitalComment on above:Expected: 03/28/2026, Expires: 04/28/2026Start: 21-80-6025Pechefpgz for malignant neoplasm of breast MAMMOGRAM LEFTOSU Bellevue Hospitaltart: 03-14-2026 End: 11-90-0092Csoutmj encounter pnrhyefwa71/16/2026 8:15 AM EDT [facility] [address] [place] [phone] Ba Romero DO [address] [place] [address] NOMS [facility] OrthopaedicsStart: 02-21-2026 Lipid panelLipid ScreeningKettering Health Prebletart: 09-19-2025 End: 95-91-5548Supvsbf encounter ieigqzayi43/21/2026 2:40 PM EST Office Visit Medical Oncology at [facility] Breast [address] 4th [address], [address] [place] [address] Mle Valdes MD [address] [place] [address] [facility]: 36-51-5830Twogwnpqq for osteoporosisDEXA SCAN DISCUSSIONOSRegional Medical Centertart: 72-59-8779Igaacswia vaccination INFLUENZA VACCINE (#1)OSRegional Medical Centertart: 04-12-2025 End: 59-15-5597Ejvbiez encounter procedureNOMS NB ORTHOStart: 04-11-2025 End: 09-45-8392Xwxiroztu to same day surgery ecwzcl9604/11/2025 12:00 PM EDT Treatment [facility] [address] [facility] [address] [place] [address] Nicole Pereyra, PT Primary osteoarthritis of left knee (Primary Dx);Aftercare following left knee joint replacement surgery; Internal derangement of left kneeNOMS Venancio Physical TherapyComment on above: Primary osteoarthritis of left knee (Primary Dx); Aftercare following left knee joint replacement surgery; Internal derangement of left kneeStart: 04-11-2025 End: 71-63-2520ypsirsdyghAWBT CI PTStart: 04-04-2025 End: 76-59-3524Raagogxnv to same day surgery wgmeqc2004/04/2025 2:30 PM EDT Treatment [facility] [address] [facility] [address] [place] [address] Nicole Pereyra, PT Primary osteoarthritis of left knee (Primary Dx); Aftercare following left knee joint replacement surgeryNOCarl Albert Community Mental Health Center – McAlestere Physical TherapyComment on above:Primary osteoarthritis of left knee (Primary Dx); Aftercare following left knee joint replacement surgeryStart: 04-04-2025 End: 23-86-9845cnnrwmhyiiLYDZ CI PTStart: 03-30-2025 End: 94-29-8380Huycxsgpv to same day surgery lzzdfr3103/30/2025 7:30 AM EDT Treatment [facility] [address] [facility] [address] [place] [address] Nicole Pereyra, PT Primary osteoarthritis of left knee (Primary Dx); Aftercare following left knee joint replacement surgery; Internal derangement of left kneeNOPushmataha Hospital – Antlers Physical TherapyComment on above: Primary osteoarthritis of left knee (Primary Dx); Aftercare following left knee joint replacement surgery; Internal derangement of left kneeStart: 03-30-2025 End: 52-48-1320mtmqvqkrxo56/01/2025 7:30 AM EDT Treatment [facility] CI PT [address] [facility] [address] [place] [address] Nicole Pereyra PTNO CI PTStart: 03-28-2025 End: 49-70-6633Efrcxcv encounter procedureJames Care Mamm[facility] Breast [facility] Hospitaltart: 03-23-2025 End: 51-32-4209Edunwzsur to same day surgery jteuls3103/23/2025 10:30 AM EDT Evaluation [facility] CI PT [address] [facility] [address] [place] [address] Nicole Pereyra, PT Primary osteoarthritis of left knee (Primary Dx); Aftercare following left knee joint replacement surgeryNOMS CI PTComment on above:Primary osteoarthritis of left knee (Primary Dx); Aftercare following left knee joint replacement surgeryStart: 03-22-2025 End: 20-33-8579JG Breast ViewsMAMMO DIAGNOSTIC WITH ADRIEL LEFT Imaging Routine Personal history of malignant neoplasm of breast Expected: 03/22/2025, Expires: 04/22/2025OSKindred Hospital DaytonComment on above:Expected: 03/22/2025, Expires: 04/22/2025Start: 58-08-7255Ireepktcq for malignant neoplasm of breast MAMMOGRAM LEFTOSRegional Medical Centertart: 03-15-2025 End: 68-83-6871Uglwoxw encounter hxnmiswkf83/17/2025 11:00 AM EDT Office Visit [facility] [address] [place] [address] Ba Romero, [address] [place] [address] NOMS NB ORTHOStart: 02-20-2025 End: 15-89-1104gmknelpwff17/24/2025 2:30 PM EDT Evaluation [facility] CI PT [address] [place] [address] [place] [address] Nicole Pereyra PTNOMS CI PTStart: 02-12-2025 End: 54-47-0031Mwvbyfi encounter /16/2025 8:45 AM EDT Office Visit [facility] [address] [place] [address] Ba Romero DO [address] [place] [address] ArrivedNOMS MICHEL ORTHOComment on above:ArrivedStart: 01-01-2025 End: 62-78-2321Lndsbyu encounter qrhzdphty61/05/2025 10:00 AM EDT Office Visit [facility] [address] [place] [address] Ba Romero DO [address] [place] [address] NOMS NB ORTHOStart: 11-07-2024 End: 10-94-9440Btjhiyz encounter qreffheef53/11/2025 9:30 AM EDT Office Visit [facility] [address] [place] [address] Ba Romero, DO [address] [place] [address] NOMS NB ORTHOStart: 2024 End: 21-44-0384Dgswhqn encounter szsqvfhue09/16/2025 10:15 AM EST Office Visit [facility] [address] [place] [address] Ba Romero, DO [address] [place] [address] ArrivedNOMS NB ORTHOComment on above:ArrivedStart: 08-14-2024 End: 88-83-0483Maehqou encounter winlkkcgu68/16/2024 2:30 PM EST Appointment Department of Radiology [address] [place] [phone] Mel Valdes MD [address] [place] [address] Department of RadiologyStart: 07-25-2024 End: 13-83-6012Tzwierd encounter rdhzezcfe34/26/2024 8:00 AM EST Office Visit [facility] [address] [place] [address] Ba Romero, DO [address] [place] [address] NOMS NB ORTHOStart: 43-59-4272Bqgcbecyh [Moles/volume] in Serum or PlasmaPOTASSIUMOSU Bellevue Hospitaltart: 06-27-2024 End: 64-78-5153Eqdxqcd encounter laoajvdqa78/29/2024 2:30 PM EDT Office Visit [facility] [address] [place] [address] Ba Romero, DO [address] [place] [address] NOMS NB ORTHOStart: 06-13-2024 End: 65-57-0262Eaatthf encounter procedureNOMS NB ORTHOComment on above:Arrived Start: 05-23-2024 End: 96-54-2165Ivfaplr encounter uqhvfzhyc58/24/2024 2:30 PM EDT Office Visit [facility] [address] [place] [address] Ba Romero, DO [address] [place] [address] NOMS NB ORTHOStart: 05-10-2024 End: 99-42-5442Vrrewmh encounter yaojerffq63/11/2024 12:00 PM EDT Procedure Visit NOMS EXT DEP Ba Romero, DO [address] [place] [address] NOMS EXT DEPStart: 95-25-3525Shhlvxngd vaccinationClairton ClinicStart: 04-25-2024 End: 03-99-3435Vwufuxm encounter pbjzxjejz99/27/2024 9:15 AM EDT Office Visit [facility] [address] [place] [address] Ba Romero, DO [address] [place] [address] ArrivedNOMS NB ORTHOComment on above:ArrivedStart: 03-22-2024 End: 78-97-5680IFU Skeletal system.axial Views for bone densityBONE DENSITY AXIAL (HIP, PELVIS, SPINE) Imaging Routine Malignant neoplasm of lower-inner quadrant of right breast of female, estrogen receptor positive Postmenopausal Aromatase inhibitor use Expected: 03/22/2024, Expires: 03/22/2025OSKindred Hospital DaytonComment on above:Expected: 03/22/2024, Expires: 03/22/2025Start: 03-08-2024 End: 19-56-7326Gisvepg encounter uowrcplzp13/10/2024 10:00 AM EDT Office Visit Medical [facility]cology at [facility] [address] [place] [address] Rd 4[address] Floor, [address] [place] [address] Arnaldo Land, BUSINESS DEVELOPMENT ASSISTANT-BUILD AND RELEASE MANAGER [address] [place] [address] [facility] at [facility]: 03-01-2024 End: 20-14-3553Meoazmh encounter procedureJamethodist rehabilitation center Care Mammography at [facility]art: 01-28-2024 End: 59-65-9917QD Breast - left DiagnosticMAMMO DIAGNOSTIC LEFT Imaging Routine Malignant neoplasm of lower-inner quadrant of right breast offemale, estrogen receptor positive Expected: 01/28/2024 (Approximate), Expires: 02/27/2024[facility] Work Phone: Comment on above:Expected: 01/28/2024 (Approximate), Expires: 02/27/2024Start: 27-46-8406Msscbbnrs for malignant neoplasm of breast [facility] Hospitaltart: 10-13-2023 End: 66-32-0638Yvnrukk encounter procedureDepartment of Radiation OncologyStart: 25-06-8440Eawlojx Directive DiscussionAdvance Directive DiscussionCleohio state health system ClinicStart: 09-08-2023 End: 45-28-6591Wtdudvh encounter ptgoxbhhw50/10/2024 8:30 AM EST Office Visit Medical Oncology at The [address], [address] [place] [address] Mel Giron MD [address] [place] [address] [facility]: 09-01-2023 End: 00-45-3919Jmbaajm encounter jyfofuhiw07/03/2024 9:00 AM EST Office Visit Department of Plastic Surgery [address] [facility] [address] [place] [address] Sharath Alvarado MD [address] [facility] [address] [place], [phone] Department of Plastic SurgeryStart: 10-05-2312Hhsirelqgx Health ScreeningBehavioral Health ScreeningKettering Health Prebletart: 84-32-2390Wywlwazew for osteoporosisDEXA SCAN DISCUSSIONOSRegional Medical Centertart: 07-21-2023 End: 02-27-3725Rphdpvp encounter zyrsvlugb11/22/2023 1:30 PM EST Office Visit Department of Plastic Surgery [address] [facility] [address] [place] [address] Sharath Alvarado MD [address] [facility] [address] [place] [address], [phone] Department of Plastic SurgeryStart: 07-15-2023 End: 81-82-0718Hxiqpqrvm to same day surgery mipqdb2707/15/2023 11:30 AM EST - 07/15/2023 2:30 PM EST Surgery Perioperative Services at The [address] 3rd [place] [address] Sharath Alvarado MD [address] [facility] [address] [place] [address] CAPSULECTOMY BREASTPerioperative Services at The [facility] Hills HospitalComment on above:CAPSULECTOMY BREASTStart: 07-15-2023 End: 96-94-5691Siiwhnngbpmici capsulectomy breastCAPSULECTOMY BREAST Acquired absence of right breast and nipple 07/15/2023 11:30 AM ESTOSU CCCT OSC PERIOP Start: 07-15-2023 End: 61-55-0084Fcduudjgd mammaplastyBREAST REDUCTION Acquired absence of right breast and nipple 07/15/2023 11:30 AM ESTOSU CCCT OSC PERIOPStart: 07-15-2023 Subsequent hospital visit by iesqgavqn51/16/2023 11:30 AM EST Hospital Encounter Perioperative Services at The [place] [address] [place] [address] Sharath Alvarado MD [address] [facility] [address] [place] [phone] Acquired absence of right breast and nipplePerioperative Services at The [facility] on above:Acquired absence of right breast and nipple Start: 07-15-2023 End: 27-98-0289Gnqpkmfsb to same day surgery ytclzb3507/15/2023 8:30 AM EST - 07/15/2023 11:30 AM EST Surgery Perioperative Services at The [place] [address] [place] [address] Sharath Alvarado MD [address] [facility] [address] [place] [phone] CAPSULECTOMY BREASTPerioperative Services at The [facility] on above:CAPSULECTOMY BREASTStart: 07-15-2023 End: 05-14-9808Zystaqoithzaif capsulectomy breastCAPSULECTOMY BREAST Acquired absence of right breast and nipple 07/15/2023 8:30 AM ESTOSU CCCT OSC PERIOP Start: 07-15-2023 End: 34-88-7378Doazeotsb mammaplastyBREAST REDUCTION Acquired absence of right breast and nipple 07/15/2023 8:30 AM ESTOSU CCCT OSC PERIOPStart: 07-15-2023 Subsequent hospital visit by qrbeaegbj37/16/2023 8:30 AM EST Hospital Encounter Perioperative Services at The [facility] [address] [place] [address] Sharath Alvarado MD [address] [facility] [address] [place] [phone] Acquired absence of right breast and nipplePerioperative Services at The [facility] Hills HospitalComment on above:Acquired absence of right breast and nipple Start: 82-08-5964QT Chest WO contrastACMC Healthcare System Glenbeightart: 42-54-9128SW of chest without contrastCT chest wo con high resACMC Healthcare System Glenbeightart: 07-02-2023 End: 52-51-7173Xrqnmehgtw gmhdoyintvrt42/03/2023 8:30 AM EDT Pre-Operative Nurse Assessment [facility] [address] [place] [address] Sharath Alvarado MD [address] [facility] [address] [place] [address] [facility] HospitalStart: 06-30-2023 End: 67-78-1990Cuwvjxs encounter epwefeyqh92/01/2023 1:00 PM EDT Office Visit Department of Plastic Surgery [address] [facility] [address] [place] [phone] Sharath Alvraado MD [address] [facility] [address] [place], [place] Department of Plastic SurgeryStart: 09-77-5324Oczfb-19 Vaccine ( season)Covid-19 Vaccine ( season)[facility]art: 82-79-2807Yvmabvqqr vaccinationOSU Bellevue Hospitaltart: 04-22-2023 End: 31-43-9428CJ Breast ViewsMAMMO DIAGNOSTIC WITH ADRIEL LEFT Imaging Routine Malignant neoplasm of lower-inner quadrant of rightbreast of female, estrogen receptor positive Expected: 04/22/2023, Expires: 05/23/2023City HospitalComment on above:Expected: 04/22/2023, Expires: 05/23/2023Start: 04-15-2023 End: 19-03-8688XQ Breast ViewsMAMMO DIAGNOSTIC WITH ADRIEL LEFT Imaging Routine Personal history of malignant neoplasm of breast Expected: 04/15/2023, Expires: 05/16/2023City HospitalComment on above:Expected: 04/15/2023, Expires: 05/16/2023Start: 78-18-3617Nagmgpeze [Moles/volume] in Serum or Plasma POTASSIUMUniversity Hospitals Ahuja Medical Centertart: 03-10-2023 End: 74-03-2249Jnytiuc encounter procedureDepartment of Plastic SurgeryStart: 13-11-8916Dafultyks [Moles/volume] in Serum or PlasmaPOTASSIUMUniversity Hospitals Ahuja Medical Centertart: 02-02-2023 End: 83-21-1309Tqfkkoi encounter procedureJamethodist rehabilitation center Care [facility]ammography [facility]: 01-27-2023 End: 50-45-3807Ljdijsk encounter mgkzhfatq15/31/2023 Office Visit Surgical Oncology Stuart Smallwood MD [address] [facility] 3rd Floor,[address] [place] [address] Division of Surgical OncologyStart: 01-27-2023 End: 91-86-9694Djycfyt encounter rvphlndeh96/31/2023 Appointment Mammography Tucker Haywood MD [address] [facility] [place] [address] [facility] Eduardo [facility]ammography at [facility]: 06-11-9178QJVRGKXSQ LEFTMAMMOGRAM LEFTOSRegional Medical Centertart: 75-23-9379Adolywflt for malignant neoplasm of breastMAMMOGRAM LEFT [facility]art: 59-52-5661Yuoomzqhd mammographyMAMMOGRAM SCREENING DISCUSSIONOSU Bellevue Hospitaltart: 64-38-2902Cpgldyeks mammographyMAMMOGRAM SCREENING DISCUSSIONOSU Bellevue Hospitaltart: 12-09-2022 End: 35-46-1989Ecowmhy encounter procedureDepartment of Plastic SurgeryStart: 10-07-2022 End: 82-57-5019Zmwbohy encounter xzjxucyjw79/08/2023 Office Visit Radiation Oncology Arnaldo Escobedo, BUSINESS DEVELOPMENT ASSISTANT-BUILD AND RELEASE MANAGER [address] [place] [address] Department of Radiation OncologyStart: 09-24-2022 End: 01-52-9856Kmeaazwyyqdm consultation with boawily7009/24/2022 Telemedicine Multispecialty Raegan Sullivan, BUSINESS DEVELOPMENT ASSISTANT-BUILD AND RELEASE MANAGER [address]th [place] [address] [facility]: 09-11-2022 End: 47-51-3980zwktjjuikd71/13/2023 Telemed Clin Support Radiation Oncology Department of Radiation OncologyStart: 09-07-2022 End: 25-60-7091Wqkfrzzh Support Wwvyngbia86/09/2023 Clinical Support Encounter Radiation OncologyDepartment of Radiation OncologyStart: 09-04-2022 End: 88-64-9228Pljcoiyt Support EncounterDepartment of Radiation OncologyStart: 09-03-2022 End: 53-06-9236Majritjq Support Tjzvppfbd38/05/2023 Clinical Support Encounter Radiation OncologyDepartment of Radiation OncologyStart: 09-02-2022 End: 84-17-0076Gwsekmuo Support Fydyhdtqj58/04/2023 Clinical Support Encounter Radiation OncologyDepartment of Radiation OncologyStart: 09-01-2022 End: 99-24-2593Xmviigvn Support Pccrvrqcg33/03/2023 Clinical Support Encounter Radiation OncologyDepartment of Radiation OncologyStart: 08-28-2022 End: 41-64-1996Ozlzkoox Support EncounterDepartment of Radiation OncologyStart: 08-27-2022 End: 24-54-1900Withfigp Support Qqkurgnjt68/29/2022 Clinical Support Encounter Radiation OncologyDepartment of Radiation OncologyStart: 08-26-2022 End: 59-38-7329Hdapojne Support Vkjdmqczw11/28/2022 Clinical Support Encounter Radiation OncologyDepartment of Radiation OncologyStart: 08-25-2022 End: 95-43-7858Nnfneamu Support Cxrcgebvp98/27/2022 Clinical Support Encounter Radiation OncologyDepartment of Radiation OncologyStart: 08-20-2022 End: 34-71-3209Curpruor Support Hgtlppeha95/22/2022 Clinical Support Encounter Radiation OncologyDepartment of Radiation OncologyStart: 08-19-2022 End: 96-44-2806Hblmeplf Support Avvanuycb21/21/2022 Clinical Support Encounter Radiation OncologyDepartment of Radiation OncologyStart: 08-18-2022 End: 63-67-4656Efgrvyd encounter jesmlvzba35/20/2022 Office Visit Radiation Oncology Deepti Gomez MD, PhD [address] [place] [address] Department of Radiation OncologyStart: 08-18-2022 End: 45-81-8142Lttpaykf Support Ttcfsvtsb02/20/2022 Clinical Support Encounter Radiation OncologyDepartment of Radiation OncologyStart: 08-17-2022 End: 57-87-3612Sttrxfqk Support Yafrituus27/19/2022 Clinical Support Encounter Radiation OncologyDepartment of Radiation OncologyStart: 08-14-2022 End: 43-55-7900Wwmcaezw Support Bgevsbuut81/16/2022 Clinical Support Encounter Radiation OncologyDepartment of Radiation OncologyStart: 08-14-2022 End: 15-78-9810Lxoodzhu Support EncounterDepartment of Radiation OncologyStart: 08-13-2022 End: 78-60-3628Snogtlke Support Iupdzagcf67/15/2022 Clinical Support Encounter Radiation OncologyDepartment of Radiation OncologyStart: 08-13-2022 End: 96-98-8843Kslvdhzq Support Qpylkzcki19/15/2022 Clinical Support Encounter Radiation Oncology Deepti Gomez MD, PhD [address] [place] [address] Department of Radiation OncologyStart: 08-12-2022 End: 68-58-8042Oauurrjz Support Nlambvztj92/14/2022 Clinical Support Encounter Radiation OncologyDepartment of Radiation OncologyStart: 08-12-2022 End: 17-29-4265Hcacedk encounter dgkfdswey01/14/2022 Office Visit Plastic Surgery Sharath Alvarado MD [address] [facility] 0 [place] [address] Department of Plastic SurgeryStart: 08-12-2022 End: 43-23-9423Mujliuc encounter procedureDepartment of RadiologyStart: 08-11-2022 End: 31-09-8799Qtixxgcc Support Oohyeuspw75/13/2022 Clinical Support Encounter Radiation Oncology Bubba Lopez MD [address], [address] [place] [address] Department of Radiation OncologyStart: 08-06-2022 End: 54-34-5629Zwrrmszwv to same day surgery zxnfjy9508/06/2022 Surgery Multispecialty Sharath Alvarado MD [address] [facility] 0 [place] [address] EXCHANGE TISSUE ENGINEERING WRITER W/ PERMANENT IMPLANTCCCT PERIOPComment on above:EXCHANGE TISSUE ENGINEERING WRITER W/ PERMANENT IMPLANTStart: 08-06-2022 End: 68-03-4592Rsiz periprosthetic capsulotomy breastCAPSULOTOMY BREAST Acquired absence of right breast and nipple 08/06/2022 10:30 AM [facility] MAIN OR Start: 08-06-2022 End: 81-58-9350Scsdexjyg mammaplastyBREAST REDUCTION Acquired absence of right breast and nipple 08/06/2022 10:30 AM [facility]CT MAIN ORStart: 08-06-2022 End: 82-43-2527Nbeesopgdnt tiss transportation maintenance worker permanent prosthesisEXCHANGE TISSUE ENGINEERING WRITER W/ PERMANENT IMPLANT Acquired absence of right breast and nipple 08/06/2022 10:30 AM [facility]T MAIN ORStart: 08-06-2022 End: 27-41-4019Seyh repair scalp/neck/ax/genit/trunk 2.6-7.5cmREPAIR WOUND SIMPLE AXILLAE TRUNK Acquired absence of right breast and nipple 08/06/2022 10:30 AM [facility]T MAIN ORStart: 33-42-6679Octzbqojjr hospital visit by lnojdwbda40/08/2022 Hospital Encounter Multispecialty Sharath Alvarado MD [address] [facility] 0 [place] [address] Acquired absence of right breast and nippleCCCT PERIOPComment on above:Acquired absence of right breast and nippleStart: 08-04-2022 End: 20-43-0068Bryhuge encounter procedureDepartment of Radiation OncologyStart: 07-31-2022 End: 91-18-8089Tzqescr encounter procedureDepartment of Radiation OncologyStart: 07-22-2022 End: 82-22-4197Svwnzic encounter cwjmcivrh30/23/2022 Office Visit Plastic Surgery Sharath Alvarado MD [address] [facility] 0 [place] [address] Department of Plastic SurgeryStart: 07-08-2022 End: 53-25-9344Plxskjj encounter iuyrthyhi71/09/2022 Office Visit Plastic Surgery Sharath Alvarado MD [address] [facility] 0 [place] [address] Department of Plastic SurgeryStart: 06-29-2022 End: 14-07-7501Tmbrtbcuk to same day surgery nessmw4206/29/2022 Surgery Multispecialty Sharath Alvarado MD [address] [facility] 0 [place] [address] EXCHANGE TISSUE ENGINEERING WRITER W/ PERMANENT IMPLANTCCCT PERIOPComment on above:EXCHANGE TISSUE ENGINEERING WRITER W/ PERMANENT IMPLANTStart: 06-29-2022 End: 25-19-7963Fhcw periprosthetic capsulotomy breastCAPSULOTOMY BREAST Acquired absence of right breast and nipple 06/29/2022 11:[address] [facility] MAIN OR Start: 06-29-2022 End: 91-15-9676Silhohlmr mammaplastyBREAST REDUCTION Acquired absence of right breast and nipple 06/29/2022 11:[address] [facility] MAIN ORStart: 06-29-2022 End: 06-67-0405Yetysytasuw tiss transportation maintenance worker permanent prosthesisEXCHANGE TISSUE ENGINEERING WRITER W/ PERMANENT IMPLANT Acquired absence of right breast and nipple 06/29/2022 11:[address] [facility] MAIN ORStart: 06-29-2022 End: 20-72-0966Eetv repair scalp/neck/ax/genit/trunk 2.6-7.5cmREPAIR WOUND SIMPLE AXILLAE TRUNK Acquired absence of right breast and nipple 06/29/2022 11:[address] [facility] MAIN ORStart: 65-00-8898Dfudmrgwtg hospital visit by qdeyzkxky52/31/2022 Hospital Encounter Multispecialty Sharath Alvarado MD [address] [facility] [address] [place] [address] Acquired absence of right breast and nippleCCCT PERIOPComment on above:Acquired absence of right breast and nippleStart: 05-27-2022 End: 72-93-8429Qvaxxnneu to same day surgery rebfax7505/27/2022 Clinical Support Encounter Plastic SurgeryDepartment of Plastic SurgeryStart: 05-20-2022 End: 17-09-4048Qrfzrkblm to same day surgery ufmqno0705/20/2022 Clinical Support Encounter Plastic SurgeryDepartment of Plastic SurgeryStart: 05-13-2022 End: 06-82-7273Zuvi density scanBONE DENSITY AXIAL (HIP, PELVIS, SPINE) Imaging Routine Malignant neoplasm of lower-inner quadrant of right breast of female, estrogen receptor positive Expected: 05/13/2022, Expires: [facility]23[facility] Work Phone: comment on above:Expected: 05/13/2022, Expires: 05/13/2023Start: 05-13-2022 End: 81-48-5072Iflqpevvr to same day surgery htwjpg7305/13/2022 Clinical Support Encounter Plastic SurgeryDepartment of Plastic SurgeryStart: 05-06-2022 End: 06-79-3949Ojxqabz encounter iljqnhmaq42/07/2022 Office Visit Oncology Mel Giron MD [address] [place], [place] [phone] (Work) [facility]: 05-06-2022 End: 07-92-8443Bekrqghwq to same day surgery centerDepartment of Plastic Surgery Start: 11-62-4263Unooeafgw [facility]: 04-29-2022 End: 65-63-9267Bqvmmmntc to same day surgery yihhvr2204/29/2022 Clinical Support Encounter Plastic SurgeryDepartment of Plastic SurgeryStart: 04-22-2022 End: 39-86-3426Rpsjkwm encounter cnjlwcafy55/24/2022 Office Visit Plastic Surgery Sharath Alvarado MD [address] [facility] [address] [place] [address] Department of Plastic SurgeryStart: 04-22-2022 End: 11-69-8416Keeburv encounter ftypilowl73/24/2022 Office Visit Surgical Oncology Stuart Smallwood MD [address] [facility] 3rd Floor,[address] [place] [address] Division of Surgical OncologyStart: 04-15-2022 End: 35-80-7117Lucpeip encounter procedureDivision of Surgical OncologyStart: 04-10-2022 End: 52-23-9009Ueuvwkyyw to same day surgery ftqgra3604/10/2022 Surgery Multispecialty Stuart Smallwood MD [address] [facility] [address], [address] [place] [address] MASTECTOMY COMPLETECCCT PERIOPComment on above:MASTECTOMY COMPLETEStart: 04-10-2022 End: 07-75-2729Fqsqtyer lymphadenectomy completeLYMPHADENECTOMY AXILLARY DEEP Malignant neoplasm of lower-inner quadrant of right breast of female,estrogen receptor positive 04/10/2022 7:[address] [facility] MAIN ORStart: 04-10-2022 End: 64-65-0783Kjgk rcnstj immt/dlyd w/tiss transportation maintenance worker sbsq xpnsj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 BREAST TISSUE ENGINEERING WRITER INCLUDING SUBSEQUENT EXPANDERS Malignant neoplasm of lower-inner quadrant of right breast of female, estrogen receptor positive 04/10/2022 7:[address] [facility] MAIN ORStart: 04-10-2022 End: 92-88-5163Kr/exc lymph node open deep axillary nodeBX LYMPH NODE AXILLARY DEEP Malignant neoplasm of lower-inner quadrant of right breast of female, es trogen receptor positive 04/10/2022 7:[address] [facility] MAIN ORStart: 04-10-2022 End: 99-93-7009Lid radioactive tracer for id of sentinel nodeINJECTION RADIOACTIVE TRACER FOR SENTINEL NODE IDENTIFICATION Malignant neoplasm of lower- inner quadrant of right breast of female, estrogen receptor positive 04/10/2022 7:[address] [facility] MAIN ORStart: 04-10-2022 End: 64-90-8674Dkwfkkjirs simple completeMASTECTOMY COMPLETE Malignant neoplasm of lower-inner quadrant of right breast of female, estrogen receptor positive 04/10/2022 7:[address] [facility] MAIN ORStart: 04-10-2022 End: 95-19-7669Aubknfw encounter tubilbizi21/12/2022 Appointment Nuclear Medicine Prakash Méndez, LEI-EDEN [address] [place] [address] Nuclear Med [facility] PreOp [facility]T 4Start: 89-71-4896Pokrknpvvd hospital visit by physicianCCCT PERIOPComment on above: Malignant neoplasm of lower-inner quadrant of right breast of female, estrogen receptor positiveStart: 04-01-2022 End: 19-94-1963repkzfkiqv21/03/2022 Rehab Services Visit Physical Therapy Stuart Smallwood MD [address] [facility] 3rdFloor, [address] [place] [address] Harriett Spencer, [id number] [facility] [address] [place] [address] [facility]: 04-01-2022 End: 85-01-6231Doqsfzi encounter procedureDepartment of Plastic SurgeryStart: 03-20-2022 End: 34-36-5906Ylgzzdu encounter /22/2022 Office Visit Oncology Mel Giron MD [address] [place], [place] [phone] (Work) [facility]: 03-20-2022 End: 70-38-2137Yntoaxi encounter hdxnugcxf63/22/2022 Office Visit Radiation Oncology Deepti Gomez MD, PhD [address] [place] [address] Department of Radiation OncologyStart: 03-11-2022 End: 43-47-8873Xxknelv encounter gnqhaupha78/13/2022 Appointment Nuclear Medicine Marlene Olivas, BUSINESS DEVELOPMENT ASSISTANT-BUILD AND RELEASE MANAGER [address] [facility] 2nd Floor [place], [place] [id number] [facility]: [facility]-06[facility]2022 End: 12-93-5623Bczcetr encounter etggzbjxg30/08/2022 Office Visit Radiation Oncology Edwin Samayoa MD [address] [facility] 1st Floor, [address] [place] [address] Department of Radiation OncologyStart: 03-04-2022 End: 62-22-0596Mfavoct encounter fgnipxpgj25/06/2022 Office Visit Plastic Surgery Sharath Alvarado MD [address] [facility] [address] [place] [address] Department of Plastic SurgeryStart: 51-93-9038Scrsbngjqi hospital visit by wmloiguwe23/01/2022 Hospital Encounter Magnetic Resonance Imaging Marlene Olivas, BUSINESS DEVELOPMENT ASSISTANT-BUILD AND RELEASE MANAGER [address]nd [place] [address] Department of RadiologyStart: 02-24-2022 End: 79-29-7704ZU Breast - bilateral WO and W contrast IVMRI BREAST BILATERAL WITH AND WITHOUT CONTRAST Imaging STAT Pre-op testing Expected: 02/24/2022 (Herb roximate), Expires: 03/26/2023OSKindred Hospital DaytonComment on above: Expected: 02/24/2022 (Approximate), Expires: 03/26/2023Start: 02-24-2022 End: 15-55-5956YCPUF Heart perfusion at rest and W stress and W radionuclide IV NUC MYOCARD PERF STRESS MIBI PHARM Cardiac Nuclear Medicine Routine Malignant neoplasm of lower-inner quadrant of right breast of female, estrogen receptor positive Pre-op testing Expected: 02/24/2022, Expires: 02/24/2023[facility] HospitalComment on above:Expected: 02/24/2022, Expires: 02/24/2023Start: 02-24-2022 End: 85-14-5397Mhhfxycd ECGCity HospitalComment on above:Expected: 02/24/2022 (Approximate), Expires: 02/24/2023Start: 02-24-2022 End: 03-82-1535Vjodqwz encounter lhqtjbddu82/28/2022 Office Visit Surgical Oncology Stuart Smallwood MD [address]rd [address] [place] [address] Division of Surgical OncologyStart: 74-40-3904QEN Vaccine (1 - 1-dose 60+ series)RSV Vaccine (1 - 1-dose 60+ series)[facility]: 83-70-0328BUU VACCINE (1 - Risk 60-74 years 1-dose series)RSV VACCINE (1 - Risk 60-74 years 1-dose series)[facility]: 35-04-3115Nafxfzwlesgq vaccinationUniversity Hospitals Ahuja Medical Centertart: 84-09-5308QLWJACWVHEWT VACCINE SERIES (2 - PCV)PNEUMOCOCCAL VACCINE SERIES (2 - PCV)[facility]: 47-22-8696Weiolnnwhrqs Vaccine: 65+ (2 of 2 - PCV)Pneumococcal Vaccine: 65+ (2 of 2 - PCV)[facility]: 89-94-0699Oxlvmzqd Vaccine (1 of 2)Shingrix Vaccine (1 of 2) [facility]: 69-31-7649Rkdrto vaccine hzv live for subcutaneous use ZOSTER (SHINGLES) VACCINE (1 of 2)[facility]: 2003 ColonoscopyCOLORECTAL CANCER SCREENING DISCUSSIONOSRegional Medical Centertart: 39-54-4739Vytdovgre for malignant neoplasm of colonCity Hospital Start: 05-50-5700Xjcpfir lipid profileLIPID SCREENINGCity Hospital Start: 25-99-4323Esuwd panelLIPID SCREENINGOSRegional Medical Centertart: 23-52-9915Ovrkwccfk for malignant neoplasm of cervixCERVICAL CANCER SCREENING DISCUSSIONOSRegional Medical Centertart: 23-30-8146Yzsdo diphtheria, tetanus and acellular pertussis (DTaP) vaccinationTDAP (ADULT)[facility] Start: 42-78-4867Aryru microalbumin profileDTaP,Tdap,Td Vaccine (1 - Tdap) [facility]: 78-81-4537Kqreok vaccine hzv live for subcutaneous use ZOSTER (SHINGLES) VACCINE (1 of 2)[facility]: 1976 Annual PCP Team Chronic Disease VisitAnnual PCP Team Chronic Disease Visit [facility]: 89-21-6819Lnqpdpamf C screeningHepatitis C Screening [facility]: 41-82-8953ZRZ screeningHIV ScreeningCrystal Clinic Orthopedic Center Start: 22-91-3422Zlzeawx vaccinationTETANUSUniversity Hospitals Ahuja Medical Centertart: 69-19-9178ABE screeningHIV SCREENING DISCUSSIONOSU [facility]vue Hospitaltart: 95-85-5799QNVQF-19 VACCINE (#1)COVID-19 VACCINE (#1)[facility] Start: 90-82-9522DLIPH-19 VACCINE (#1)COVID-19 VACCINE (#1)[facility]: 29-89-6870Wcqfcgdqm C antibody, confirmatory testHEPATITIS C VIRUS SCREENINGOSRegional Medical Centertart: 16-30-9863Iuwbsdnxf C screening HEPATITIS C VIRUS SCREENINGOSRegional Medical Centertart: 63-86-9199Ujvfwzx vaccinationTETANUSUniversity Hospitals Ahuja Medical Centertart: 87-57-1902Zdqjuci stimulating hormone measurementUC HealthAxillary lymphadenectomy complete LYMPHADENECTOMY AXILLARY DEEP Malignant neoplasm of lower-inner quadrant of right breast of female,estrogen receptor positiveOSU VA MEDICAL [facility]ENTER MAIN ORBrst rcnstj immt/dlyd w/tiss transportation maintenance worker sbsq xpnsj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 BREAST TISSUE ENGINEERING WRITER INCLUDING SUBSEQUENT EXPANDERS Malignant neoplasm of lower-inner quadrant of right breast of female, estrogen receptor positiveOSU [facility]T MAIN ORBrst rcnstj immt/dlyd w/tiss transportation maintenance worker sbsq xpnsj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 BREAST TISSUE ENGINEERING WRITER INCLUDING SUBSEQUENT EXPANDERS Malignant neoplasm of lower-inner quadrant of right breast of female, estrogen receptor positiveOSKindred Hospital Dayton Bx/exc lymph node open deep axillary nodeBX LYMPH NODE AXILLARY DEEP Malignant neoplasm of lower-inner quadrant of right breast of female, estrogen receptor positiveOSU [facility]T MAIN ORInj radioactive tracer for id of sentinel nodeINJECTION RADIOACTIVE TRACER FOR SENTINEL NODE IDENTIFICATION Malignant neoplasm of lower- inner quadrant of right breast of female, estrogen receptor positiveOSU VA MEDICAL [facility]ENTER MAIN ORMastectomy simple completeMASTECTOMY COMPLETE Malignant neoplasm of lower-inner quadrant of right breast of female, estrogen receptor positiveOSU CCCT MAIN OROpen periprosthetic capsulotomy breastCAPSULOTOMY BREAST Acquired absence of right breast and nippleOSU EEI OSC PERIOPRAD ONC SIMULATIONRAD ONC SIMULATION Imaging Routine Malignant neoplasm of lower-inner quadrant of right breast of female, estrogen receptor positive 07/31/2022 3:02 PM [facility] Work Phone: Reduction mammaplastyBREAST REDUCTION Acquired absence of right breast and nippleOSU EEI OSC PERIOPReplacement tiss transportation maintenance worker permanent prosthesisEXCHANGE TISSUE ENGINEERING WRITER W/ PERMANENT IMPLANT Acquired absence of right breast and nippleOSU EEI OSC PERIOPSPECT Heart perfusion at rest and W stress and W radionuclide IVNUC MYOCARD PERF STRESS MIBI PHARM Cardiac Nuclear Medicine Routine Malignant neoplasm of lower-inner quadrant of right breast of female, estrogen receptor positive Pre-op testing 03/18/2022 8:08 AM [facility] Work Phone: sURG PATH REQUESTCity HospitalComment on above:Release Upon Ordering for 1 Occurrences starting 04/10/2022, 1 completed End: 82-08-6326ZD Knee - left 4 ViewsXR KNEE GENERAL 4V AP BOTH/PA BOTH/LAT/MERC LEFT Radiology Routine Primary osteoarthritis of left knee 1 Occurrences starting 01/21/2024 until 02/19/2025[facility] Work Phone: Comment on above:1 Occurrences starting 01/21/2024 until 02/19/2025 End: 83-64-4981MR Lower extremity - bilateral AP W standingXR LEG FRONTAL HIP TO ANKLE MECHANICAL AXIS Radiology Routine Primary osteoarthritis of left knee 1 Occurrences starting 01/21/2024 until 5CChillicothe HospitalComment on above:1 Occurrences starting 01/21/2024 until 02/19/2025[facility] Immunizations Immunization DateImmunizationNotesCare IpfuhajoWulfgpnq53-81-5616rkduupzwo, injectable, quadrivalent, contains preservativeErin Dee VELÁSQUEZ Work Phone: [facility]opedic CenterQhhnrm41-39-0023jeoaiuzse virus vaccine, unspecified formulationPrakash MACHADO Work Phone: [facility] HospitalExcvdt37-87-7049iolydhhsjcxb polysaccharide vaccine, 23 valentErin Massac PA-C Work Phone: [facility]opedic CenterJxitou71-61-7808truhqyqfg, injectable, quadrivalent, contains preservativeErin Massac PA-C Work Phone: [facility]opedic CenterVwnnaf59-26-7656mgddrayzm, seasonal, injectableErin Dee PA-C Work Phone: [facility] CenterMvvnfl90-29-5237zsnvbwfpy, seasonal, injectableErin Dee PA-C Work Phone: [facility] CenterOdjshm92-25-8003jsjltkdwv virus vaccine, unspecified formulationErin Dee PA-C Work Phone: [facility] Payers DatePayer CategoryPayerPolicy [id number] Care (unspecified)[place] [address] [id number] 2024Medicare [id number] Health Insurance [id number] [id number] 2023Medicare [id number] [id number]-jaq [id number]-[id number]-okj3l902620666-87-1636Dqeglgg 1.2.840.618301.1.13.172.2.7.3.696547.04833-44-9228Jxzxsyw33081961790109-43-2257 Bepyifg6123969 2.16.840.1.829209.3.579.2.78108-36-2757Kvcaniq4631357 2..840.1.828833.3.579.2.26327-38-6737Lxntdsz6414658 2..840.1.724684.3.579.2.30033-26-1958Rygbadx73199322 2..840.1.149498.3.579.2.93091-16-0272Yzxwtsz29681344 2..840.1.706099.3.579.2.35418-21-3274Rzxbfpu13438997 2..840.1.243223.3.579.2.68626-10-3249Lhmdcmb94892948 2..840.1.792338.3.579.2.32058-91-8400Vlpycmg84113408 2..840.1.359648.3.579.2.30456-90-3951Mwbbbox48483900 2..840.1.847781.3.579.2.07022-66-5892Tihowlm60153439 2..840.1.678462.3.579.2.52214-07-6721Pyhjzlo75020292 2.840.1.888684.3.579.2.75929-42-1875Oocqqht047978794 2.16.840.1.300513.3.579.2.08944-06-9139Zkewzvw725028523 2.840.1.127007.3.579.2.00927-86-4379Jboyzsd766127646 2.840.1.759037.3.579.2.95080-51-4907Lkehtik232238587 2.0.1.153288.3.579.2.83143-33-8816Lvkjnec878209845 2.0.1.240343.3.579.2.30529-61-6124Ipzetdr88626633 2.0.1.813745.3.579.2.190556-63-3070Ewtojjf74171373 2..1.653990.3.579.2.772464-85-9544Udovyos19163096 2.0.1.044124.3.579.2.172716-77-1462Oapwuwd39065154 2..1.769440.3.579.2.371754-61-9405Vizyqne72426482 2.0.1.543242.3.579.2.023542-85-6052Mvlvlvm63408444 2..1.953354.3.579.2.720597-14-0055Agdnhiu47884473 2.840.1.636061.3.579.2.323785-91-0928Uehmvvz11728395 2..1.759594.3.579.2.173032-26-5608Rjpysqs09348717 2.840.1.208229.3.579.2.049916-18-4327Hiqjvxv24039656 2.840.1.968250.3.579.2.827406-09-6990Pydqkfm9429696 2.0.1.418339.3.579.2.783078-88-0052Rfrauae3964479 2.840.1.639427.3.579.2.432329-25-7870Tgsdgzn3058640 2.0.1.315041.3.579.2.965035-22-4245Oljpjae2064206 2.0.1.182018.3.579.2.719054-69-4877Zhziveq0784872 2.0.1.822026.3.579.2.530573-13-6645Gcpflqg2002181 2.0.1.638578.3.579.2.832161-83-3112Hdaaetg4251618 2..1.656533.3.579.2.538537-16-1235Xonyrhy0237000 2..1.366342.3.579.2.064825-35-8331Ldhlhuz3349702 2.0.1.438334.3.579.2.388070-02-8286Peavduq2386070 2..1.810440.3.579.2.474979-54-0274Tosrimm7976212 2.0.1.75562[id number] 2758be0j-x8n5-2422-eo64-24r0s08g8f7yUfhhdjc98202214 2.840.1.636908.3.579.2.752Jlliyyt85771035 2.840.1.051329.3.579.2.531 UnknownMutual of [id number] d78fe1tj-99hb-8927-9h74-ms2glk23cy2s Social History DateTypeDetailFacilityTobacco smoking status NHISTobacco smoking consumption unknownOSU Bellevue Hospitaltart: [id number] Assigned At BirthNot on fileOSRegional Medical Centertart: 02-24-2022 End: 39-05-9637Qtjkpzf smoking status NHISNever smoked tobaccoOSRegional Medical Centertart: 02-24-2022 End: 75-82-3497Jwzptwp use and exposureSmokeless tobacco non-userOSRegional Medical Centertart: 02-24-2022 End: 93-05-2557Rhqxybb intakeCurrent drinker of alcohol (finding)[facility]22 End: 83-54-7621Ldrcdiw intakeOSRegional Medical Centertart: 02-24-2022 End: 42-32-6549Dtmmtwp SDOH Zdppqhpfw3KAARegional Medical Centertart: 02-24-2022 End: 75-84-7260Ewwmxsw SDOH Food Euuax6IKJ [facility] Hospitaltart: 02-24-2022 End: 03-16-6224Hgvyhma SDOH Transport Rhy0RZYMarietta Osteopathic Clinictart: 03-31-2022 End: 18-37-7124Bxfsrfqj to SARS-CoV-2 (event)[facility]City [facility] Start: 08-04-2022 End: 64-72-6937Pbfcvsoz to SARS-CoV-2 (event)Unable to assessOSRegional Medical Centertart: 28-87-8869Tgxrche SDOH Physical Activity TDK5JQPRegional Medical Centertart: 03-39-7133Tadcolu SDOH Physical Activity LCD9GOARegional Medical Centertart: 01-27-2023 End: 37-98-7422Xwv Assigned At [facility] [employer] Other Start: 59-94-9776Vjx hard is it for you to pay for the very basics like food, housing, medical care, and heatingNot hard at [facility]Do you feel stress - tense, restless, nervous, or anxious, or unable to sleep at night because yourmind is troubled all the time - these days [OSQ]Not at [facility] Work Phone: (I/We) worried whether (my/our) food would run out before (I/we) got money to buy more.Never [facility]In the past 12 months, was there a time when you were not able to pay the mortgage or rent on time?[facility]: 29-93-0657Xnv Assigned At FemaleACMC Healthcare System Glenbeightart: 53-23-1588Ykioenv Commentsocial [facility]: 21-40-0104Mromco identityIdentifies as female gender (finding)[facility]: 89-60-8399Rxcyue orientationHeterosexual (finding)[facility] Start: 04-25-2024 End: 04-44-3057Vqgeujgol beverage intakeLifetime non-drinker (finding)[facility] HealthcareStart: 05-09-2012 End: 44-47-6609EjuTohoxi (finding)[facility] Medical Equipment Procedure CodeEquipment CodeEquipment Original TextEquipment IdentifierDates Pilot Control Operator Tissue 350cc Style 9200 3 Suture Tab Magnetic - [id number] Start: 83-10-4873Zgrbcyz Breast 400cc Gel Texture Shell Barrier Layer P5cm - [id number]: 84-24-1439ENUSZXNZ TOTAL ARTHROPLASTY Ba Romero DO Sahra 05/10/24 Unknown Shoulder RFDAStart: 93-79-8754IAHYOVAU TOTAL ARTHROPLASTY Ba Romero DO Sahra 05/10/24 Unknown Shoulder RFDAStart: 05-10-2024 SHOULDER TOTAL ARTHROPLASTY Ba Romero DO Sahra 05/10/24 Unknown Shoulder RFDA Start: 41-74-4917FXAYOBFN TOTAL ARTHROPLASTY Ba Romero DO Sahra 05/10/24 Unknown Shoulder RFDAStart: 06-59-9261SQIOGLJO TOTAL ARTHROPLASTY Ba Romero DO 05/10/24 Unknown Shoulder RFDAStart: 25-43-4867SDFODYVV TOTAL ARTHROPLASTY Ba Romero DO 05/10/24 Unknown Shoulder RFDAStart: 62-65-8025OMVDTWHW TOTAL ARTHROPLASTY Ba Romero DO 05/10/24 Unknown Shoulder RFDAStart: 05-10-2024 SHOULDER TOTAL ARTHROPLASTY Ba Romero DO 05/10/24 Unknown Shoulder RFDA Start: 67-67-7364WQDLCJGY TOTAL ARTHROPLASTY Ba Romero DO 05/10/24 Unknown Shoulder RFDAStart: 68-62-9975RENONAHC TOTAL ARTHROPLASTY Ba Romero DO 05/10/24 Unknown Shoulder RFDAStart: 77-10-1575RWWPOSOG TOTAL ARTHROPLASTY Ba Romero DO 05/10/24 Unknown Shoulder RFDAStart: 10-69-5844XGZYDITC TOTAL ARTHROPLASTY Ba Romero DO 05/10/24 Unknown Shoulder RFDAStart: 05-10-2024 SHOULDER TOTAL ARTHROPLASTY Ba Romero DO 05/10/24 Unknown Shoulder RFDA Start: 17-86-8690FELABOLX TOTAL ARTHROPLASTY Ba Romero DO 05/10/24 Unknown Shoulder RFDAStart: 56-58-8346UYIULURK TOTAL ARTHROPLASTY Ba Romero DO 05/10/24 Unknown Shoulder RFDAStart: 35-21-5540EHZBLHMS TOTAL ARTHROPLASTY Ba Romero DO 05/10/24 Unknown Shoulder RFDAStart: 94-80-9701BXANNXIB TOTAL ARTHROPLASTY Ba Romero DO 05/10/24 Unknown Shoulder RFDAStart: 05-10-2024 SHOULDER TOTAL ARTHROPLASTY Ba Romero DO 05/10/24 Unknown Shoulder RFDA Start: 65-29-9048SIDQWREQ TOTAL ARTHROPLASTY Ba Romero DO 05/10/24 Unknown Shoulder RFDAStart: 41-44-3567JGRRXIUX TOTAL ARTHROPLASTY Ba Romero DO 05/10/24 Unknown Shoulder RFDAStart: 40-84-7013FQQILPCA TOTAL ARTHROPLASTY Ba Romero DO 05/10/24 Unknown Shoulder RFDAStart: 60-02-8655LNTL ARTHROSCOPY Ba Romero DO 12/20/24 Unknown Knee LFDAStart: 07-74-8666MQUVOFQN TOTAL ARTHROPLASTY Ba Romero DO 05/10/24 Unknown Shoulder RFDAStart: 05-10-2024 SHOULDER TOTAL ARTHROPLASTY Ba Romero DO 05/10/24 Unknown Shoulder RFDA Start: 01-33-2280IVZTEEYH TOTAL ARTHROPLASTY Ba Romero DO 05/10/24 Unknown Shoulder RFDAStart: 38-23-8282NFSTTYUO TOTAL ARTHROPLASTY Ba Romero DO 05/10/24 Unknown Shoulder RFDAStart: 13-36-6308JLWSCQJM TOTAL ARTHROPLASTY Ba Romero DO 05/10/24 Unknown Shoulder RFDAStart: 28-11-3075GANRUJWQ TOTAL ARTHROPLASTY Ba Romero DO 05/10/24 Unknown Shoulder RFDAStart: 05-10-2024 SHOULDER TOTAL ARTHROPLASTY Ba Romero DO 05/10/24 Unknown Shoulder RFDA Start: 17-23-9993NVZM ARTHROSCOPY Ba Romero DO 12/20/24 Unknown Knee LFDA Start: 47-19-9764YHJKMDTU TOTAL ARTHROPLASTY Ba Romero DO 05/10/24 Unknown Shoulder RFDAStart: 83-67-0606EFCTMFIU TOTAL ARTHROPLASTY Ba Romero DO 05/10/24 Unknown Shoulder RFDAStart: 90-90-7071ZTUMBUXM TOTAL ARTHROPLASTY Ba Romero DO 05/10/24 Unknown Shoulder RFDAStart: 59-83-3253SNVNPKFO TOTAL ARTHROPLASTY Ba Romero DO 05/10/24 Unknown Shoulder RFDAStart: 05-10-2024 SHOULDER TOTAL ARTHROPLASTY Ba Romero DO 05/10/24 Unknown Shoulder RFDA Start: 73-55-0086EZYGENYC TOTAL ARTHROPLASTY Ba Romero DO 05/10/24 Unknown Shoulder RFDAStart: 22-79-4503QVXQJCZX TOTAL ARTHROPLASTY Ba Romero DO 05/10/24 Unknown Shoulder RFDAStart: 78-65-0448MYRF ARTHROSCOPY Ba Romero DO 12/20/24 Unknown Knee LFDAStart: 75-77-4037FPVK TOTAL ROBOT ARTHROPLASTY Ba Romero DO 02/28/25 Unknown Knee LFDAStart: 93-04-7196YRSC TOTAL ROBOT ARTHROPLASTY Ba Romero DO 02/28/25 Unknown Knee LFDAStart: 58-01-0870KTWF TOTAL ROBOT ARTHROPLASTY Ba Romero DO 02/28/25 Unknown Knee LFDAStart: 02-39-8646LSRE TOTAL ROBOT ARTHROPLASTY Ba Romero DO 02/28/25 Unknown Knee L FDAStart: 02-28-2025 Functional Status RljiIrytubdoesZepixiCcteiahp96-27-0566Egakbzqojv StatusGlenbeigh Hospital08-27-2024Functional StatusGlenbeigh Hospital08-12-2022Are you deaf, or do you have serious difficulty hearingNo 04/10/2022 2:00 PM EDT Jessica Esposito, ADAN [facility]08-12-2022Are you blind, or do you have serious difficulty seeing, even when wearing glassesNo 04/10/2022 2:00 PM EDT Jessica Esposito, ADAN [facility]08-12-2022Do you have serious difficulty walking or climbing stairsNo 04/10/2022 2:00 PM EDT Jessica Esposito, ADAN [facility]08-12-2022Do you have difficulty dressing or bathingNo 04/10/2022 2:00 PM EDT Jessica Esposito, RN [facility] 16-70-6459Grlurnx of a physical, mental, or emotional condition, do you have difficulty doing errands alone such as visiting a physician's office or shopping No 04/10/2022 2:00 PM EDT Jessica Esposito, ADAN [facility] Mental Status KfzcQavupznlowLesaarBhwfqnro87-67-6919Czgyteh of a physical, mental, or emotional condition, do you have serious difficulty concentrating, remembering, or making decisionsNo 04/10/2022 2:00 PM EDT Jessica Esposito, ADAN [facility] Clinical Notes 02-24-2022 to 06-05-2025 Note Date & VasaRvlsBnhllpyz45-40-3495 Evaluation note* Diagnosis Onset Date Resolution Status Admit Date Asthma acuteOctober 2024 10:22amHypothyroidismacuteOctober 2024 10:22am Medicare annual wellness visit, subsequentacuteOctober 2024 10:22amTinea pedisacuteOctober 2024 10:22amAllergic rhinitisacuteNovember 2024 8:55amGERD (gastroesophageal reflux disease)acuteNovember 2024 8:55am Reactive airway diseaseacuteNovember 2024 8:55amUpper airway cough syndromeacuteNovember 2024 8:55am [facility] Work Phone: [phone]) 589-355208-14-2025 History of Present illness Narrative* Ba Romero, DO - 04/12/2025 9:00 AM EDT @NEELAM@ Malia Matt Tito is a 64 y.o. female who presents for Post-op of the Left Knee (Lt TKA [facility] 02/28/25) HPI: History of Present Illness The patient is 6 weeks status post left total knee arthroplasty, which was performed on 10/06/2024.She is accompanied by her . She has completed her formal rehabilitation program as of yesterday. Her knee flexion was measured at 138 degrees during her last session. She has been diligent in her exercises and has even started swimming. She has been taking baby aspirin since her surgery and is curious about whether she shouldcontinue this regimen. She is also seeking advice on whether it is safe for her to travel by air [facility] on 05/03/2025, given that she will be wearing compression socks. Denies calf pain, chest pain, shortness of breath, fever, chills. SUBJECTIVE: MEDICATIONS: Current Outpatient Medications Medication Instructions acetaminophen (Tylenol) 500 MG tablet TAKE 1 TABLET BY MOUTH EVERY 4 HOURS albuterol (2.5 MG/3ML) 0.083% nebulizer solution aspirin 81 mg celecoxib (CELEBREX) 200 mg, Oral, 2 times daily cetirizine (ZyrTEC) 10 MG tablet 1 tablet esomeprazole (NexIUM) [address] capsule famotidine (PEPCID) 20 mg, Nightly furosemide (Lasix) 20 MG tablet ibuprofen 200 MG tablet Take by mouth levothyroxine (SYNTHROID, LEVOXYL) 75 mcg, Daily magnesium oxide (MAG-OX) 400 mg, Daily RT montelukast (Singulair) 10 MG tablet pyridoxine (B-6) 50 mg, Daily RT tamoxifen (Nolvadex) 20 MG chemo tablet vitamin C 1,000 mg, Daily VITAMIN D PO Take by mouth vitamin E 400 Units, Daily RT ALLERGIES: Allergies Allergen Reactions Sumatriptan Other Reaction(s): Mental Status Change, Other (See Comments), Unknown, Unknown Reaction, floating feeling Other reaction(s): Mental Status Change, Other (See Comments) Other Reaction(s): Cognitive impairment, Hallucinations SURGICAL HISTORY: Past Surgical History: Procedure Laterality Date ANTERIOR CRUCIATE LIGAMENT REPAIR Left 2004 BREAST SURGERY 2021 FOOT SURGERY Right 1998 FRACTURE SURGERY 1998 HYSTERECTOMY 2013 MASTECTOMY 2021 TOTAL KNEE ARTHROPLASTY Left 02/28/2025 [facility] TOTAL SHOULDER ARTHROPLASTY Right 05/10/2024 [facility] TUBAL LIGATION 1979 REVIEW OF SYMPTOMS: The review of systems, history and current medications list are all reviewed today. OBJECTIVE: Visit Vitals Ht 5' 3 Wt 141 lb BMI 24.98 kg/m OB Status Unknown Smoking Status Never BSA 1.69 m Physical Exam Alert and oriented, no acute distress. Mood and affect are appropriate. Ambulating independently. Gait is nonantalgic. Left knee: Incision is benign and well healed, very minimal swelling, no erythema, full extension, flexion to 135 degrees, patella is tracking appropriately, no varus or valgus instability, 5/5 strength Others: Neurovascular status lower extremities unchanged, negative homans Results Three views, bilateral PA weight-bearing/sunrise/lateral left knee, taken today and saved to the permanent medical record are reviewed. Prosthesis is unchanged in position and alignment. No signs of prosthetic wear or loosening. No periprosthetic fractures. ASSESSMENT AND PLAN: I reviewed the history, physical exam, diagnostic studies, and diagnosis with the patient. Assessment & Plan 1. Postoperative status following left total knee arthroplasty: Discontinue the use of baby aspirin. For the upcoming flight on 05/03/2025, wear compression socks and perform ankle pumps while seated. I reminded the patient of the need for lifelong prophylactic antibiotics prior to any dental procedures. Follow-up: February 2026 with xrays. Diagnoses and all orders for this visit: S/P total knee arthroplasty, left - XR knee 3 views left Ba Romero D.O. Attestation This note was created using voice recognition through [employer]. documented in this encounterLee's Summit [id number] History of Present illness Narrative* Nicole Pereyra, PT - 04/11/2025 12:00 PM EDT Images from the original note were not included. Physical Therapy Treatment Visit / DISCHARGE Patient Name: Malia Cook Today's Date: 04/11/2025 Encounter Diagnoses Name Primary? Primary osteoarthritis of left knee Yes Aftercare following left knee joint replacement surgery Internal derangement of left knee Visit number: 4 Timed Code Treatment Minutes: 41 minutes Total Treatment Time: 41 minutes Time In: 1152 Time Out: 1240 History: Pt underwent surgery for left TKA on February 28. Has been ambulating without use of device for about 2 weeks. Has been getting home health. At last Dr visit, states she was bending to 102. Riding bike at home for ROM. Doing stretches at home. Pt states she is still icing at home; taking OTC meds as needed. Precautions: [place], [place] Subjective: Doing stairs at home normally at home. Can do without holding on but does for safety. Will see Dr again next . Pain: 1-2/10 Objective: PT Evaluation (03/23/2025) LEFT KNEE AROM: 5 to 108 degrees in supine PROM: 4 to 113 degrees in supine Joint play: good patellar mobility MMT: quad 4/5; 10 degrees additional extension lag with SLR Palpation: mint tenderness aidee patella Special Test: N/A Functional: able to ascend 6 inch step with min compensation Treatment: Education: HEP education with demonstration, Educated on Eval Findings and POC Manual Therapy: Passive ROM, Joint mobilization, Soft Tissue Mobilization, Myofascial Release, Muscle Energy Technique, Neural Mobilization, Myofascial Cupping, Dry Needling, IASTM, and Scar mobilization as needed. Therapeutic Exercise: (41 minutes) Strength, Endurance, Flexibility, ROM, HEP, Neural Mobilization,Power, and Core Stability as needed. Pt performed and progressed in home program this date; writteninstructions and pictures issued with good pt understanding. Therapeutic Activity: Exercises to improve dynamic activities, functional tasks, functional mobility to return to prior activity level as needed. Neuromuscular re-education: Balance Training, Muscle Facilitation, Dynamic Stability, Core Stabilization, and Blood Flow Restriction Training (BFRT) as needed. Modalities: Heat, Ice, Electrical Stimulation, Ultrasound, Cervical Mechanical Traction, Lumbar Mechanical Traction, Iontophoresis, and Fluidotherapy as needed. Assessment: Pt completed 4 out patient visits following left TKA. Pt able to achieve 138 degrees ofleft knee flexion with self stretch this date. Achieves full left knee extension. Pt is able to ascend 12 inch step with left LE and minimal UE assist. Able to rise from kneeling position using left LE with minimal left UE assistance. Pt has met all PT goals and we will now discharge to home program. Outcome Measure: Lower Extremity Functional Scale (LEFS): 36/80 Rehab Diagnosis: left knee pain and weakness; difficulty walking; decrease ROM and mobility Short Term Goal: To be met in 2 weeks Goal 1: Pt to be instructed in home exercise program. - met Dispatcher Maintenance Service Goals: To be met in 10 weeks Goal 1: Pt to report independence and compliance with home program. - met Goal 2: Pt to achieve 120 degrees left knee flexion to assist with functional tasks such as squatting. - met Goal 3: Pt to be lacking no greater than 1 degree left knee extension to assist with proper gait. -met Goal 4: Pt to achieve 5/5 strength left knee flexion and extension to assist with functional mobility and ADL's. - met Goal 5: Pt to score no less than 56/80 on LEFS indicating improved QOL. - met Discharge PT documented in this encounterLee's Summit [id number] History of Present illness Narrative* Nicole Pereyra PT - 04/04/2025 2:30 PM EDT Images from the original note were not included. Physical Therapy Treatment Visit Patient Name: Malia Cook Today's Date: 04/04/2025 Encounter Diagnoses Name Primary? Primary osteoarthritis of left knee Yes Aftercare following left knee joint replacement surgery Visit number: 3 Timed Code Treatment Minutes: 40 minutes Total Treatment Time: 40 minutes Time In: 1422 Time Out: 1505 History: Pt underwent surgery for left TKA on February 28. Has been ambulating without use of device for about 2 weeks. Has been getting home health. At last Dr visit, states she was bending to 102. Riding bike at home for ROM. Doing stretches at home. Pt states she is still icing at home; taking OTC meds as needed. Precautions: [place], [place] Subjective: Doing stairs at home normally at home. Can do without holding on but does for safety. Will see again next . Pain: 1-10/09 Objective: PT Evaluation (03/23/2025) LEFT KNEE AROM: 5 to 108 degrees in supine PROM: 4 to 113 degrees in supine Joint play: good patellar mobility MMT: quad 4/5; 10 degrees additional extension lag with SLR Palpation: mint tenderness aidee patella Special Test: N/A Functional: able to ascend 6 inch step with min compensation Treatment: Education: HEP education with demonstration, Educated on Eval Findings and POC Manual Therapy: Passive ROM, Joint mobilization, Soft Tissue Mobilization, Myofascial Release, Muscle Energy Technique, Neural Mobilization, Myofascial Cupping, Dry Needling, IASTM, and Scar mobilization as needed. Therapeutic Exercise: (40 minutes) Strength, Endurance, Flexibility, ROM, HEP, Neural Mobilization,Power, and Core Stability as needed. Pt performed and progressed in home program this date; writteninstructions and pictures issued with good pt understanding. Therapeutic Activity: Exercises to improve dynamic activities, functional tasks, functional mobility to return to prior activity level as needed. Neuromuscular re-education: Balance Training, Muscle Facilitation, Dynamic Stability, Core Stabilization, and Blood Flow Restriction Training (BFRT) as needed. Modalities: Heat, Ice, Electrical Stimulation, Ultrasound, Cervical Mechanical Traction, Lumbar Mechanical Traction, Iontophoresis, and Fluidotherapy as needed. Assessment: Pt completed 3 out patient visits following left TKA. Pt able to achieve 134 degrees ofleft knee flexion with self stretch this date. Lacks 1 degree from full extension. Will continue toprogress as pt tolerates. Outcome Measure: Lower Extremity Functional Scale (LEFS): 36/80 Rehab Diagnosis: left knee pain and weakness; difficulty walking; decrease ROM and mobility Short Term Goal: To be met in 2 weeks Goal 1: Pt to be instructed in home exercise program. Senior Care Goals: To be met in 10 weeks Goal 1: Pt to report independence and compliance with home program. Goal 2: Pt to achieve 120 degrees left knee flexion to assist with functional tasks such as squatting. Goal 3: Pt to be lacking no greater than 1 degree left knee extension to assist with proper gait. Goal 4: Pt to achieve 5/5 strength left knee flexion and extension to assist with functional mobility and ADL's. Goal 5: Pt to score no less than 56/80 on LEFS indicating improved QOL. Pt will benefit from skilled PT for 1x/week from 03/23/2025 to 06/15/2025 to address the above impairments. I hereby deem this POC medically necessary. Please sign below. Date: documented in this encounterLee's Summit [id number] History of Present illness Narrative* Nicole Pereyra PT - 03/30/2025 7:30 AM EDT Images from the original note were not included. Physical Therapy Treatment Visit Patient Name: Malia Cook Today's Date: 03/30/2025 Encounter Diagnoses Name Primary? Primary osteoarthritis of left knee Yes Aftercare following left knee joint replacement surgery Internal derangement of left knee Visit number: 2 Timed Code Treatment Minutes: 28 minutes Total Treatment Time: 28 minutes Time In: 0730 Time Out: 0800 History: Pt underwent surgery for left TKA on February 28. Has been ambulating without use of device for about 2 weeks. Has been getting home health. At last Dr visit, states she was bending to 102. Riding bike at home for ROM. Doing stretches at home. Pt states she is still icing at home; taking OTC meds as needed. Precautions: [place], [place] Subjective: Stretching left knee at home. Had to go to [place] the other day and knee was swollen following, iced for swelling. Pain: 1-2/10 Objective: PT Evaluation (03/23/2025) LEFT KNEE AROM: 5 to 108 degrees in supine PROM: 4 to 113 degrees in supine Joint play: good patellar mobility MMT: quad 4/5; 10 degrees additional extension lag with SLR Palpation: mint tenderness aidee patella Special Test: N/A Functional: able to ascend 6 inch step with min compensation Treatment: Education: HEP education with demonstration, Educated on Eval Findings and POC Manual Therapy: Passive ROM, Joint mobilization, Soft Tissue Mobilization, Myofascial Release, Muscle Energy Technique, Neural Mobilization, Myofascial Cupping, Dry Needling, IASTM, and Scar mobilization as needed. Therapeutic Exercise: (28 minutes) Strength, Endurance, Flexibility, ROM, HEP, Neural Mobilization,Power, and Core Stability as needed. Pt performed and instructed in home program this date; writteninstructions and pictures issued with good pt understanding. Therapeutic Activity: Exercises to improve dynamic activities, functional tasks, functional mobility to return to prior activity level as needed. Neuromuscular re-education: Balance Training, Muscle Facilitation, Dynamic Stability, Core Stabilization, and Blood Flow Restriction Training (BFRT) as needed. Modalities: Heat, Ice, Electrical Stimulation, Ultrasound, Cervical Mechanical Traction, Lumbar Mechanical Traction, Iontophoresis, and Fluidotherapy as needed. Assessment: Pt completed 2 out patient visits following left TKA. Pt able to achieve 125 degrees ofleft knee flexion with self stretch this date. Continues to lack 2-3 degrees of left knee extension. Issued left gastroc and HS stretches for home program. Also discussed prone knee hang to increase extension. Pt progressing well. Will continue. Outcome Measure: Lower Extremity Functional Scale (LEFS): 36/80 Rehab Diagnosis: left knee pain and weakness; difficulty walking; decrease ROM and mobility Short Term Goal: To be met in 2 weeks Goal 1: Pt to be instructed in home exercise program. Dispatcher Maintenance Service Goals: To be met in 10 weeks Goal 1: Pt to report independence and compliance with home program. Goal 2: Pt to achieve 120 degrees left knee flexion to assist with functional tasks such as squatting. Goal 3: Pt to be lacking no greater than 1 degree left knee extension to assist with proper gait. Goal 4: Pt to achieve 5/5 strength left knee flexion and extension to assist with functional mobility and ADL's. Goal 5: Pt to score no less than 56/80 on LEFS indicating improved QOL. Pt will benefit from skilled PT for 1x/week from 03/23/2025 to 06/15/2025 to address the above impairments. I hereby deem this POC medically necessary. Please sign below. Date: documented in this encounterLee's Summit [id number] History of Present illness Narrative* CARTER Upton - 03/28/2025 3:45 PM EDT CARTER Upton served as medical hand sander for the sensitive exam. * Stuart Smallwood MD - 03/28/2025 3:45 PM EDT FOLLOW UP NOTE FOR [facility]: DR. SMALLWOOD: HISTORY OF PRESENT ILLNESS The patient is known to me. I last saw her on 03/22/2024. I first met her on 02/04/2022. The patient is currently a 64-year-old white female. The patient had a body mass index/BMI of approximately 24.8 kg/m (5 foot, 3.5 inches tall, and weighed approximately 142 pounds), as of 02/24/2022. The patient lives in [place], [place]. ################################################################################ ############################################ The patient has a personal history of a RIGHT breast cancer process (pT2 [4.2 cm], pN1 [1/3 right axillary lymph nodes positive for macrometastatic carcinoma measuring 3 mm, without extranodal extension], 95% ER positive, 95% [place] positive, HER2 negative, intermediate grade invasive mammary carcinomawith lobular features of the 5:00 position of the right breast [3.2 cm FRN]; Oncotype DX recurrencescore 23), which was initially diagnosed in late December 2021, and for which the patient underwent a right total mastectomy procedure and right axillary sentinel lymph node mapping and biopsy procedure (by nh) and placement of a right-sided tissue transportation maintenance worker (by Dr. Sharath Alvarado of [facility] Plastic surgery) at [facility] on 04/10/2022. The patient has a personal history of NEGATIVE comprehensive genetic testing for any form of hereditary breast cancer syndrome, as based upon [employer] 77- gene CancerAdapxt-Expanded+RNA panel testfrom blood collected on 03/04/2022. 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 ################################################################################ ############################################ On 02/21/2021, the patient underwent a 12 lead EKG through the [facility] in [place], [place].This showed normal sinus rhythm with a ventricular rate of 69 beats per minute. They stated: Impression: SINUS RHYTHM WITH SHORT KY. NONSPECIFIC T WAVE ABNORMALITY. ABNORMAL ECG. . On 04/02/2021, the patient underwent Cardiopulmonary Exercise Test (CPET) at the [facility], in [place], [place]. They stated: Summary: In summary, in [...] right breast [3.2 cm FRN] at [facility] in [place], [place]. The final pathology from 01/20/2022 showed low-grade invasive carcinoma with mixed ductal and lobular features, measuring 1.9 cm in greatest dimension, which was found to be >90% ER positive, 80-90% KY positive, and HER2/lizzette negative. On 04/01/2022, the patient's outside pathology was reviewed by Dr. Spears of [facility] breast pathology. They stated: Pathologic Diagnosis: Outside Slides: [id number] (01/20/22): A. Right breast spiculated mass at [...] in an addendum. Dr. Adams has reviewed real estate representative slides. at 4325. . On 02/18/2022, the patient's outside breast imaging was reviewed by Dr. Biju Blum of [facility] breast Radiology. They stated: EXAM: BREAST IMAGING [...] with spiculated margins and associated vascular flow. [facility] the mass at 4.5 x 1.8 x 1.5 cm. The latter 2 of the 3 measurements appear to underestimate the size of the mass. IMPRESSION: Biopsy-proven carcinoma in the 5:00 right breast as described above. . . On 02/24/2022, I personally reviewed the patient's outside breast imaging with Dr. Wei Robertson of [facility] breast radiology. We discussed repeating right breast ultrasound to better size the overallsonographic abnormality within the right breast representing her right breast cancer process. We discussed obtaining right axillary ultrasound to sonographically evaluate her right axillary lymph nodes. We discussed the possibility of consideration of subsequently ordering bilateral breast MRI on the patient. On 02/24/2022, the patient initially presented to my [facility] Breast Surgical Oncology [...] OR DRUG EFFECTS. Confirmed by Jesusita Hurt ([id number]) on 02/26/2022 5:37:03 AM. . On 02/24/2022, [...] patient be seen by 1 of the [facility] Plastic Surgeons. We discussed the importance of having the patient be seen by 1 of the [facility] breast medical oncologist. We discussed the importance of having the patient be seen by 1 of the [facility] breast radiation oncologist. We discussed obtaining repeat [...] having the patient be evaluated by the [facility] clinical cancer genetics service to discuss comprehensive [...] patient contact information for our nurse practitioner, Prakash Santiago, and have instructed the patient to remain in contact with our nurse practitioner, Prakash Santiago, through [employer], for any future upcoming questions or concerns that they have regarding their management or follow-up in our [facility] breast Surgical Oncology Clinic. . On 02/24/2022, the patient underwent right breast ultrasound and right axillary ultrasound at [facility]. This was read by Dr. Wei Robertson of [facility] breast radiology. They stated: EXAM: US BREAST LIMITED UNILATERAL RIGHT, US AXILLA FOR MAMMOGRAPHY RIGHT, 02/24/2022 10:44 AM (accession [id number]), 02/24/2022 10:45 AM (accession [id number]). CLINICAL INDICATIONS: New right breast malignancy 5 [...] was read by Dr. Wei Robertson of [facility] breast radiology. They stated: FINDINGS: Amount of [...] 03/04/2022, the patient was seen by Dr. Sharath Alvarado of [facility] Plastic surgery. They stated: Plan: I discussed that the patient would be most suited to 2-stage implant-based reconstruction. After discussion, the patient stated that they wish to proceed with: right mastectomy and immediate breast reconstruction with tissue transportation maintenance worker. We will schedule/coordinate surgery and the patient [...] was seen by Dr. Deepti Gomez of [facility] breast Radiation Oncology. On 04/01/2022, the genetic counselor, Silverio Romero issued the following telephone encounter note inthe patient's OS electronic medical record chart. They stated: We met with initially in the Clinical Cancer Genetics Program on 03/04/2022 for genetic risk assessment and counseling. We spoke by telephone on 03/13/2022 to discuss the negative results of her STAT genetic testing. Tenzin spoke by telephone on 04/01/22 for follow-up genetic counseling to discuss the results of hergenetic testing. Genetic counseling graduate civil engineer, Halle Dowell, observed this encounter. Ms. Cook at another appointment when I called to discuss results. Should she have any questions about the results she can contact me directly at [phone]. RESULT AND INTERPRETATION: Based upon s personal and family history, she underwent multi-gene panel testing for variants in genes reported to be associated with hereditary cancer predisposition. 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 This 77-gene panel test is called [employer]+RNA and was performed by [employer]. The genes that were tested are listed below: AIP, ALK, APC, ELEUTERIO, AXIN2, BAP1, BARD1, BLM, BMPR1A, BRCA1, BRCA2, BRIP1, CDC73, CDH1, CDK4, CDKN1B, CDKN2A, CHEK2, CTNNA1, DICER1, EGFR, EGLN1, EPCAM,FANCC, FH, FLCN, GALNT12, GREM1, HOXB13, KIF1B, KIT, LZTR1, MAX, MEN1, MET, MITF, MLH1, MSH2, MSH3,MSH6, MUTYH, NBN, NF1, NF2, NTHL1, PALB2, PDGFRA, PHOX2B, PMS2, POLD1, POLE, POT1, KCDUT7Y, PTCH1, PTEN, RAD51C, RAD51D, RB1, RECQL, RET, SDHA, SDHAF2, SDHB, SDHC, SDHD, SMAD4, SMARCA4, SMARCB1, SMARC E1, STK11, SUFU, EJQH212, TP53, TSC1, TSC2, VHL and XRCC2. Refer [...] sentinellymph node mapping and biopsy procedure (by nh) and placement of a right-sided tissue transportation maintenance worker (by Dr. Sharath Alvarado of [facility] Plastic surgery). The final pathology from 04/10/[address] Antelmo Adams of [facility] breast pathology. This showed: (1) The right [...] sentinel lymph nodes (and specifically micrometastatic SLNs [<=2 mm]), showed thatthere was NO ADDED BENEFIT from the addition of axillary lymph node dissection for local control, disease-free survival, or overall survival (Sarahyi V, Inocente BF, Antonya S, Nylae G, Luini A, Dilciai P, Barvikkilla P, Ghazala C, Marilyn M, Neva M, Cass O, Federico MG, Ruel G, Maddy River JR, Anabelle J, Jose H, Tyshawn A, Tonia D, Rosalio Waters, Willian Waters, Natan KN, Don MM, Maribel A, Toshia , Azeb RD, Karin U; International Breast Cancer Study Group [id number] investigators. Axillary dissection versus no axillary dissection in patients with sentinel-node micrometastases (IBCSG ): a phase 3 randomised controlled trial. Lancet Oncol 2013; 14(4):297-305 [doi: 10.1016/H6389-0155(48)74792-4]). Therefore, as based upon the prior The International Breast Cancer Study Group (IBCSG) 23- Clinical Trial Study, I would consider extrapolating the abovestudy results to this patient, and I would conclude that there would be no added benefit in this patient to perform a completion right axillary lymph node dissection at a subsequent time. Therefore, I would not recommend a completion right axillary lymph node dissection procedure. The patient will continue her ongoing postoperative follow-up with Dr. Sharath Alvarado of [facility] Plastic surgery for management of her right-sided surgical MOLLY drains. We will initiate the process of sending off Oncotype DX re currence score testing on the patient's right breast cancer process. We will subsequently have the patient be evaluated by 1 of the [facility] breast medical oncologist to discuss postoperative adjuvant [...] or new breast related concerns. Otherwise, we willsee her back on 02/02/2023, as is outlined above. I have discussed all of these issues with the patient. I have answered all of her questions. The patient appears to understand what has been discussed, and she reports that she will follow-through accordingly, as is outlined above. We have given thepatient contact information for our nurse practitioner, Prakash Santiago, and have instructed the patient to remain in contact with our nurse practitioner, Prakash Santiago, through [employer], for any future upcoming questions or concerns that they have regarding their management or follow-upin our [facility] breast Surgical Oncology Clinic. . On 06/29/2022, the patient underwent exchange of her right-sided tissue transportation maintenance worker for permanent right-sided silicone gel implant, and excision of right-sided cone deformity correction, and contralateral left reduction mastopexy procedure by Dr. Sharath Alvarado of [facility] Plastic surgery. The patient received postoperative adjuvant postmastectomy radiation therapy to her right mastectomy/implant reconstruction site, which she completed in early August 2022. The patient was placed on postoperative adjuvant antiestrogen therapy with aromatase inhibitor, which she began in August 2022. The patient returns to my [facility] breast surgical oncology clinic at this time. Complete review of systems is otherwise negative for any new findings aside from anything else which was mentioned elsewhere within the current clinic note. PHYSICAL EXAMINATION Vital Signs: BP 137/79 Pulse 93 Temp 97.5 F (36.4 C) (Oral) Resp 16 Ht 1.6 m (5' 3 ) Wt 61.7 kg (136 lb) BMI 24.09 kg/m Smoking Status Never ,Body mass index is 24.09 kg/m . Our Nursing Staff was present for the evaluation (Lore Patel and Prakash Santiago). The patient came to the clinic exam room alone. The patient's right mastectomy/implant reconstruction site looks fine. The patient has STABLE chronic mild skin hyperpigmentation and STABLE chronic mild skin thickening and STABLE chronic mild soft tissue thickening of the tissues of her right mastectomy/implant reconstruction site from her prior right-sided radiation therapy. The patient has no evidence of recurrent disease within the skin or within the soft tissues of the patient's right mastectomy/implant reconstruction site. The patient has no discrete, concerning, palpable left breast masses within her reduced left breastprofile. The patient has no overtly obvious discrete palpable cervical, supraclavicular, or axillary adenopathy bilaterally. The patient has decreased range of motion of her right arm at her right shoulder region. The patient has no significant clinical findings in the remainder of her clinical examination of her chest region or of her clinical examination of her abdominal region. BREAST IMAGING Left breast diagnostic 3D digital mammogram was classified as BI-RADS category 2/benign findings/stable by the [facility] breast radiology staff. Heterogeneously dense breast tissue was seen within the leftbreast profile. Stable postsurgical changes were seen within the left breast from her prior left breast reduction surgery. Stable, scattered, benign-appearing breast calcifications were seen within the left breast. No new suspicious mammographic lesions were seen within the left breast. ASSESSMENT AND PLAN ################################################################################ ############################################ The patient has a personal history of a RIGHT breast cancer process (pT2 [4.2 cm], pN1 [1/3 right axillary lymph nodes positive for macrometastatic carcinoma measuring 3 mm, without extranodal extension], 95% ER positive, 95% KY positive, HER2 negative, intermediate grade invasive mammary carcinomawith lobular features of the 5:00 position of the right breast [3.2 cm FRN]; Oncotype DX recurrencescore 23), which was initially diagnosed in late December 2021, and for which the patient underwent a right total mastectomy procedure and right axillary sentinel lymph node mapping and biopsy procedure (by nh) and placement of a right-sided tissue transportation maintenance worker (by Dr. Sharath Alvarado of [facility] Plastic surgery) at [facility] on 04/10/2022. The patient has a personal history of NEGATIVE comprehensive genetic testing for any form of hereditary breast cancer syndrome, as based upon [employer] 77- gene CancerNext-Expanded+RNA panel testfrom blood collected on 03/04/2022. 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 ################################################################################ ############################################ The patient has stable clinical exam of her right mastectomy/implant reconstruction site and her contralateral left breast. Left breast diagnostic 3D digital mammogram was classified as BI-RADS category 2/benign findings/stable. We will continue to follow the patient annually. Therefore, we will next see the patient back on 04/02/2026, for repeat clinical exam and left breast digital mammogram. The patient should see us back sooner for new breast related problems or new breast related concerns. Otherwise, we will see her back on 04/02/2026, as is outlined above. I have discussed all of these issues with the patient. I have answered all of her questions. The patient appears to understand what has been discussed, and she reports that she will follow-through accordingly, as is outlined above. We have given the patient contact information for our nurse practitioner, Prakash Santiago, andhave instructed the patient to remain in contact with our nurse practitioner, Prakash Santiago,through [employer], for any future upcoming questions or concerns that they have regarding their management or follow-up in our [facility] breast Surgical Oncology Clinic. This note was dictated using [employer] voice recognition software. Attempts at proofreading were made, but errors may occasionally still occur. I have reviewed Malia Cook medical, surgical and other pertinent history in detail, and have updated medication and allergy information in the computerized patient record. REFERRING/PRIMARY PROVIDER(S) -Referring Provider for today's consult: Prakash Santiago, [facility] -Primary Care Provider: Tucker Haywood documented [facility]City [facility] History of Present illness Narrative* Alem Roque - 03/28/2025 3:20 PM EDT Pt offered medical hand sander for sensitive exam, pt declined. [facility] in this encounterU [facility] History of Present illness Narrative* Dyaami Brown RN - 03/28/2025 1:30 PM EDT Malia Cook was offered and declined a Medical Felting Machine Operator for this exam/procedure/test 03/28/2025. * Arnaldo Land APRN-EDEN - 03/28/2025 1:30 PM EDT Nando Cook is a 64 y.o. female who presents to the [facility] [place] [facility] for Chief Complaint Patient presents with Follow-up Referring Provider: Marlene Olivas APR* Breast Surgeon: Dr. Smallwood Plastic Surgeon: Dr. Alvarado Radiation Oncologist: Dr. Gomez PCP: Dr. Tucker Haywood Date of Diagnosis: 01/20/2022 Encounter Date: 03/28/2025 Diagnosis: Stage IB T2cN0 invasive carcinoma with mixed ductal and lobular features, well differentiated , ER positive (>90%), KY positive (80-90%), HER-2 equivocal (IHC 2+), FISH negative (HER2/CEP17 1.8, HER-2 copy number 3.73) Pathologic: [id number](sn), Oncotype 23 Current Treatment: Tamoxifen Pertinent History and Review of Systems Nando presents today for follow-up. Today, Nando reports the following: History of Present Illness The patient is a 64-year-old female returning for follow-up. She has been abstaining from tamoxifen due to its side effects, which include vaginal dryness and weight gain. She discontinued the medication two weeks prior to recent left knee surgery. Her currentintention is to avoid resuming endocrine therapy. She reports no hot flashes. She has been using coconut oil to alleviate vaginal dryness, as Replens did not provide relief. She underwent knee replacement surgery earlier this month. She reports swelling and stiffness in the surgical area but no pain. Her fatigue levels are improving post-surgery. She engages in physical therapy, including cycling, which tires her out. However, a 10-minute nap usually rejuvenates her. She maintains a good appetite and hydration. She reports no headaches, shortness of breath, cough, nausea, vomiting, diarrhea, constipation, abdominal pain, skin changes, or rashes. She performs self-breast exams and has not noticed any nipple discharge, skin changes, new lumps, bumps, areas of concern, or tenderness. -Remaining ROS unremarkable. Oncologic History: Briefly, Malia [...] mixed ductal and lobular features ER >90%, KY 80-90%, HER 2 IHC: 2+, FISH ratio: [...] cm. 1 lymph node with macrometastatic carcinoma. [id number]. 09/04/2022: Completed adjuvant radiation 08/2022: Started anastrozole 12/2022: Stopped anastrozole r/t arthralgias, hot flashes, changes in eye sight. 04/2023: Switched to exemestane. 06/09/2023: Hold exemestane for two weeks r/t headaches, anxiety, arthralgias. 06/28/2023: Switched to letrozole 03/22/2024: Mammo BR 2, benign. Hold letrozole for two weeks. Switch to Tamoxifen. 03/28/2025: Stopped Tamoxifen end of January. Prefers to stay off endocrine therapy. Mammo scheduled after this clinic appointment. Pertinent Physical Exam: Vitals: Smoking Status Never Patient's Current Performance Status 1 General/Constitutional: Well developed, well nourished female, who [...] quadrants. Soft, non-tender, non-distended. No organomegaly. Extremities: Limited strength and ROM RUE. Limited ROM LLE s/p TKA, well healing incision. Normal range of motion in remaining extremities, with normal strength equally and symmetrically. No cyanosisor clubbing. Neurological: Conscious, alert and oriented. Cranial nerves [...] Pertinent Labs, Imaging and Pathology Imaging Data: Mammogram scheduled after this clinic appointment. Other Data: Surgical Pathology Report, [id number], 04/10/2022 Pathologic Diagnosis A. Frontier lymph node #1, right axilla, excision: 1 lymph node with macrometastatic carcinoma by H&E and AE1/3 B. Frontier lymph node #2, right axilla, excision: 1 [...] 3.73) per outside report Specimen in which ER/KY/HER2 performed: Previous outside biopsy [id number] pTNM: pT2 pN1a Additional findings: Biopsy site [...] ERG, and are negative for p40. Labs: No new labs to review. Impression and Recommendations: Impression: Malia Cook is [...] Stage IB (cT2, cN0, cM0, G1, ER+, KY+, HER2-) - Pathologic stage from 04/10/2022: Stage IB (pT2, pN1a(sn), cM0, G2, ER+, KY+, HER2-, Oncotype DX score: 23) Recommendations: 1. 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 Oncotype Dx 23. -Underwent right breast implant exchange and left mastopexy on 06/29/22 -Unable to tolerate AI. Switched to Tamoxifen 02/2024. -Mammo 03/22/24 Bi-Rads 2, benign. -Today, 03/28/25: ROS reviewed and physical exam completed. No clinical evidence of recurrence upon examination today. Nando stopped Tamoxifen surrounding surgery; however, declines to restart at this time due to side effects. We discussed indication for endocrine therapy and ways to augment potentialside effects. At this time, Nando prefers to continue on active surveillance. - Mammo and follow up with Dr Smallwood scheduled later today. - RTC 6 months [place]. 2. Supportive Care -Previously reviewed patient education on managing hot flashes and vaginal dryness. Currently usingcoconut oil for vaginal dryness. Recommended trial of Hyalogyn. Patient education handout provided today. -Previously reported she stopped venlafaxine for hot flashes. -Calcium and Vitamin D3 for osteoporosis prevention. -Previously offered supportive care services for mood. 3. Bone Health A. DEXA (08/12/22) with osteopenia. Repeat DEXA 07/2024 osteopenia. Repeat in two years. B. Recommend calcium and vitamin D [...] Completed 09/24/22 RTC 6 months to see MD for evaluation. All of the patient's questions were addressed. They were given our office contact information to reach us with further questions. CARTER Gabriel documented in this encounterCity [facility]07-30-2025 Instructions* Patient Instructions* Dayami Brown RN - 03/28/2025 1:30 PM EDT Images from the original note were not included. When will my phone call be returned? Our providers will do their best to answer your call quickly. You should expect a returned call within 24 hours. If you have an emergency, please call 911 or go to your local emergency department. When will my [employer] message be returned? Our providers will do their best to answer your questions quickly. However, there are certain timeswhen you won t get a response. Our providers won t respond to messages on nights, weekends or holidays. [employer] messages are not for urgent issues, and [...] to wait to view your information in [employer] until you speak with your provider. When will my FMLA/Paperwork be returned? Please allow 7-10 business days for completion of FMLA/Paperwork to be returned. Patient Satisfaction Surveys: Your opinion matters! If you receive a patient satisfaction survey in the mail we would appreciate your thoughts. Please help us get better! Store controlled substances (for example - opioids/narcotics, certain stimulants, certain sedatives, etc.) in a locked cabinet or in an area only accessible to you. When you no longer need the controlled substances that have been prescribed for you, do NOT bring them to [facility]. We are NOT permitted under law to accept controlled substances from a patient for disposal. You may dispose of controlled substances, as well as other old or nhtq-fyy-fqcfgfe and prescription medications, by one of the safe methods listed below: A drug take-back program - this is the best method to dispose of medications safely. You can locatethe take-back program closest to you @ https://takebackday.[facility].gov under the COLLECTION SITE SCIENTIFIC WRITER tab. The [facility] Board of pharmacy homepage also has an RX Disposal Design Editor tool @https://www.pharmacy.[place].gov/Compliance/DrugDisposal. If you cannot locate a drug take-back program, never dispose of medications down the sink or toilet. Instead, place the medication in a sealable storage bag and mix with damp coffee grounds, dirt, orcat litter, then seal the bag, and dispose of in your regular trash. If you have or unused cancer medication or hazardous drugs (this does not include Tamoxifen, Anastrozole, Letrozole or Exemestane), these may be potentially donated to our [facility] [facility] repository drug program and then given to other patients who are uninsured or underinsured. Ask your [facility] pharmacist about this program. * Attachments The following attachments cannot be sent through Care Everywhere. * Non-Hormonal Products to Help with Vaginal Dryness (The [facility]) (Citizen [place]) [facility] in this [facility]City [facility] History of Present illness Narrative* Ba Romero, - 03/15/2025 11:00 AM EDT Images from the original note were not included. @EVADATE@ Malia Matt Tito is a 64 y.o. female who presents for Post-op of the Left Knee (Lt TKA [facility] 02/28/25) HPI: History of Present Illness The patient is 15 days status post left total knee arthroplasty, date of surgery 02/28/2025. She isaccompanied by her . She has been actively working on improving her knee flexion, which was measured at 94 degrees on Jann. She has been able to walk independently for the past week and is considering driving herself to physical therapy. She applies ice to her knee twice daily, once in the morning and again at night after her exercises. Denies calf pain, chest pain, shortness of breath, fever, chills. SUBJECTIVE: MEDICATIONS: Current Outpatient Medications Medication Instructions acetaminophen (Tylenol) 500 MG tablet TAKE 1 TABLET BY MOUTH EVERY 4 HOURS albuterol (2.5 MG/3ML) 0.083% nebulizer solution aspirin 81 mg celecoxib (CELEBREX) 200 mg, Oral, 2 times daily cetirizine (ZyrTEC) 10 MG tablet 1 tablet esomeprazole (NexIUM) [address] capsule famotidine (PEPCID) 20 mg, Nightly furosemide (Lasix) 20 MG tablet gabapentin (NEURONTIN) 300 mg, 3 times daily ibuprofen 200 MG tablet Take by mouth ketorolac (Toradol) 10 MG tablet TAKE 1 TABLET BY MOUTH EVERY 8 HOURS FOR 3 DAYS levothyroxine (SYNTHROID, LEVOXYL) 75 mcg, Daily magnesium oxide (MAG-OX) 400 mg, Daily RT montelukast (Singulair) 10 MG tablet pyridoxine (B-6) 50 mg, Daily RT tamoxifen (Nolvadex) 20 MG chemo tablet vitamin C 1,000 mg, Daily VITAMIN D PO Take by mouth vitamin E 400 Units, Daily RT ALLERGIES: Allergies Allergen Reactions Sumatriptan Other Reaction(s): Mental Status Change, Other (See Comments), Unknown, Unknown Reaction, floating feeling Other reaction(s): Mental Status Change, Other (See Comments) Other Reaction(s): Cognitive impairment, Hallucinations SURGICAL HISTORY: Past Surgical History: Procedure Laterality Date ANTERIOR CRUCIATE LIGAMENT REPAIR Left 2004 BREAST SURGERY 2021 FOOT SURGERY Right 1998 FRACTURE SURGERY 1998 HYSTERECTOMY 2013 MASTECTOMY 2021 TOTAL KNEE ARTHROPLASTY Left 02/28/2025 [facility] TOTAL SHOULDER ARTHROPLASTY Right 05/10/2024 [facility] TUBAL LIGATION 1979 REVIEW OF SYMPTOMS: The review of systems, history and current medications list are all reviewed today. OBJECTIVE: Visit Vitals Ht 5' 3 Wt 141 lb BMI 24.98 kg/m OB Status Unknown Smoking Status Never BSA 1.69 m Physical Exam Gait: Ambulating independently Left knee: Incision is benign, no wound dehiscence, no drainage, mild swelling, no erythema, no ecchymosis, no blisters, full extension, flexion to 102 degrees Ankle: Plantar flexion and dorsiflexion intact Foot: Well perfused Others: Negative Homans sign Results Three views, bilateral PA weight-bearing/sunrise/lateral left knee, taken today and saved to the permanent medical record are reviewed. Prosthesis is unchanged in position and alignment. No signs of prosthetic wear or loosening. No periprosthetic fractures. ASSESSMENT AND PLAN: I reviewed the history, physical exam, diagnostic studies, and diagnosis with the patient. Assessment & Plan 1. Postoperative status following left total knee arthroplasty: She is demonstrating satisfactory progress in her recovery. She was advised to allow the surgical glue to naturally fall off without interference. She was also instructed to maintain personal hygieneby showering with soap and water. A minimum of 2 weeks should be observed before engaging in pool activities. She was encouraged to continue her rehabilitation exercises, aiming for symmetry in knee flexion. Outpatient rehab once a week was recommended, and she can also work on bending her knee at home. She was advised to apply ice to her knee twice daily to manage swelling and inflammation. She was informed that she could drive when she feels safe and is not taking narcotics. Follow-up: A follow-up appointment is scheduled in 4 weeks for an x-ray and to assess her range of motion. Diagnoses and all orders for this visit: S/P total knee arthroplasty, left - XR knee 3 views left Ba Romero D.O. Attestation This note was created using voice recognition through K[employer]. documented in this encounterLee's Summit [id number] NoteProgress Note-Physician Patient: MALIA COOK Age: 64 years Sex: Female : 1960 Associated Diagnoses: None Author: Jose Roberto Clay MD Postoperative Information Postoperative disposition: Postoperative disposition: To PACU. Optimetrix number: Optimetrix number [id number]. Anesthetic utilized: Regional: Spinal, ACB. Health Status Allergies: Allergic Reactions (Selected) Severity Not Documented Imitrex- Cognitive impairment and hallucinations. Physical Examination VS/Measurements Pain Assessment: Controlled. General: Awake, Appropriate. Respiratory: Adequate air exchange. Cardiovascular: Stable. Neurological Assessment Anesthetic outcome No anesthetic complications noted. Adequate pain relief. no nausea. Review / Management Condition: Stable. Plan Transfer/Discharge: Transfer/Discharge Discharge when meets criteria.[facility] HospitalComment on above:Result Comment: Electronically Signed By: Jose Roberto Clay MD\.br\Date and Time Signed: 03/04/25 11:02 [id number] Evaluation + Plan noteExtracted from:Title:ANES Pre-operative NoteAuthor:Jose Roberto Clay MDDate:02/28/25 Plan [place] [employer]esthesi[employer] (ASA) physical status classification: Class II. Anesthetic Preoperative Plan: Anesthesia. Regional Spinal, and adductor canal block.[facility] [id number] NoteInterdisciplinary Note - PT PT Evaluation completed with an [facility] score of 18/24. Pt was able to perform bed mobility with CGA and transfers with SBA. Pt was able to ambulate and perform steps with no LOB. Pt performing well POD # 0. Pt would be functionally safe to return home with caregiver assist and Ortho 360 to followGe[facility]07-02-2025 NoteInterdisciplinary Note - OT Pt is seen this date for OT evaluation following L TKA by Dr. Romero. [facility] score: . Pt is ableto complete functional transfers and mobility with FWW for support, and is able to safely complete ADL tasks with SUP/SBA and good safety awareness. Pt has support from spouse and will have HH therapy services. [facility]07-02-[facility] Hospital Discharge instructions Patient Education 02/28/2025 09:18:51 How to Use an Incentive Spirometer How to Use an Incentive Spirometer An incentive spirometer is a tool that measures how well you are filling your lungs with each breath. Learning to take long, deep breaths using this tool can help you keep your lungs clear and active. This may help to reverse or lessen your chance of developing breathing (pulmonary) problems, especially infection. You may be asked to use a spirometer: After a surgery. If you have a lung problem or a history of smoking. After a long period of time when you have been unable to move or be active. If the spirometer includes an indicator to show the highest number that you have reached, your health care provider or respiratory therapist will help you set a goal. Keep a log of your progress as told by your health care provider. What are the risks? Breathing too quickly may cause dizziness or cause you to pass out. Take your time so you do not get dizzy or light-headed. If you are in pain, you may need to take pain medicine before doing incentive spirometry. It is harder to take a deep breath if you are having pain. How to use your incentive spirometer 1.Sit up on the edge of your bed or on a chair. 2.Hold the incentive spirometer so that it is in an upright position. 3.Before you use the spirometer, breathe out normally. 4.Place the mouthpiece in your mouth. Make sure your lips are closed tightly around it. 5.Breathe in slowly and as deeply as you can through your mouth, causing the piston or the ball to rise toward the top of the chamber. 6.Hold your breath for 3 5 seconds, or for as long as possible. If the spirometer includes a middle school football coach indicator, use this to guide you in breathing. Slow down your breathing if the indicator goes above the marked areas. 7.Remove the mouthpiece from your mouth and breathe out normally. The piston or ball will return tothe bottom of the chamber. 8.Rest for a few seconds, then repeat the steps 10 or more times. Take your time and take a few normal breaths between deep breaths so that you do not get dizzy or light-headed. Do this every 1 2 hours when you are awake. 9.If the spirometer includes a goal marker to show the highest number you have reached (best effort), use this as a goal to work toward during each repetition. 10.After each set of 10 deep breaths, cough a few times. This will help to make sure that your lungs are clear. If you have an incision on your chest or abdomen from surgery, place a pillow or a rolled-up towel firmly against the incision when you cough. This can help to reduce pain while taking deep breaths and coughing. General tips When you are able to get out of bed: ?Walk around often. ?Continue to take deep breaths and cough in order to clear your lungs. Keep using the incentive spirometer until your health care provider says it is okay to stop using it. If you have been in the hospital, you may be told to keep using the spirometer at home. Contact a health care provider if: You are having difficulty using the spirometer. You have trouble using the spirometer as often as instructed. Your pain medicine is not giving enough relief for you to use the spirometer as told. You have a fever. Get help right away if: You develop shortness of breath. You develop a cough with bloody mucus from the lungs. You have fluid or blood coming from an incision site after you cough. Summary An incentive spirometer is a tool that can help you learn to take long, deep breaths to keep your lungs clear and active. You may be asked to use a spirometer after a surgery, if you have a lung problem or a history of smoking, or if you have been inactive for a long period of time. Use your incentive spirometer as instructed every 1 2 hours while you are awake. If you have an incision on your chest or abdomen, place a pillow or a rolled-up towel firmly against your incision when you cough. This will help to reduce pain. Get help right away if you have shortness of breath, you cough up bloody mucus, or blood comes fromyour incision when you cough. This information is not intended to replace advice given to you by your health care provider. Make sure you discuss any questions you have with your health care provider. Document Revised: 11/04/2020 Document Reviewed: 11/04/2020 [employer] Patient Education 2023 [employer]. 02/28/2025 09:18:49 Knee Cryocuff Patient Instructions - FT (CUSTOM) 02/28/2025 09:18:48 Post Op Patient Instructions - FT (CUSTOM) 02/28/2025 07:15:35 Kenia Romero - Total Knee Arthroplasty (Custom) [place], [place] [facility] DISCHARGE INSTRUCTIONS: TOTAL KNEE ARTHROPLASTY INCISION CARE: The bandage may be changed by your home Physical Therapist at 7 days postoperatively and worn an additional 7 days. A new Mepilex bandage should then be placed. The bandage is waterproof, so you may shower at home. Steri-strips (paper tape strips) may be applied to the incision if any slight wound separation is noted. These should remain in place for five days and then they may come off in the shower. Please notify the office if any increase in redness, tenderness, drainage, fever, or wound separation is noted beyond this point. MEDICATIONS: You may resume your home medications at the time of discharge. Arixtra and Lovenox are mild blood thinners that prevent the development of blood clots in the legs. One of these has been used during your hospitalization. After discharge home you should continue the use of two stomach coated baby Aspirin tablets daily with your largest meal for 30 days after home discharge. Please notify your doctor if you have a stomach sensitivity to Aspirin or history of previous stomach ulcers. Pain medication has been prescribed as well. You may continue to use the pain medication every fourhours as needed. Any narcotic pain medication can cause side effects including stomach upset, constipation, or light-headedness. You should not drive or operate machinery, or drink alcohol while using the narcotic pain medication. You should not use other pain medications with this prescription pain medication unless further directed by your physician. PHYSICAL THERAPY Continue the range of motion and strengthening exercises initiated by Physical Therapy in the hospital. Continue weight bearing, as ordered, to the operated knee as directed in Physical Therapy. This will be with the use of a walker or crutches initially. Physical therapy as begun in the hospital will continue at home, possibly with the family readiness support assistant of Home Health Physical Therapy or in the hospital as an outpatient. When you have become independent withthe physical therapy program, this will then be discontinued as a supervised program and you will be instructed to continue the physical therapy exercises at home. Your exercises are zarate to successful rehabilitation. You should gain full extension first, hopefully before hospital discharge, and gain 90 degrees flexion by one month post-op. Do the exercises daily, twice if preferred. DRIVING: Please do not drive for 4-6 weeks pending therapy progress. Driving too soon, you are considered animpaired medical driver, and this could be a problem. It is therefore advised not to drive until after yourfirst office visit following surgery. FOLLOW-UP OFFICE VISIT: Ba Romero, DO [facility] [address] [place] [address] Reviewed: 01-19 Follow Up Care 02/12/2025 09:28:14 With:Ba Romero Address: [address] [place] [address]- Business (1) When:03/16/2025 11:00:00 Comments:Call for any problems.Please call if you need to reschedule* Corey Office * [facility] 07-02-2025 NotePatient Education - Text Pulmonary Medicine How to Use an Incentive Spirometer An incentive spirometer is a tool that measures how well you are filling your lungs with each breath. Learning to take long, deep breaths using this tool can help you keep your lungs clear and active. This may help to reverse or lessen your chance of developing breathing (pulmonary) problems, especially infection. You may be asked to use a spirometer: ??? After a surgery. ??? If you have a lung problem or a history of smoking. ??? After a long period of time when you have been unable to move or be active. If the spirometer includes an indicator to show the highest number that you have reached, your health care provider or respiratory therapist will help you set a goal. Keep a log of your progress as told by your health care provider. What are the risks? Breathing too quickly may cause dizziness or cause you to pass out. Take your time so you do not get dizzy or light-headed. ??? If you are in pain, you may need to take pain medicine before doing incentive spirometry. It isharder to take a deep breath if you are having pain. How to use your incentive spirometer 1. Sit up on the edge of your bed or on a chair. 2. Hold the incentive spirometer so that it is in an upright position. 3. Before you use the spirometer, breathe out normally. 4. Place the mouthpiece in your mouth. Make sure your lips are closed tightly around it. 5. Breathe in slowly and as deeply as you can through your mouth, causing the piston or the ball torise toward the top of the chamber. 6. Hold your breath for 3?5 seconds, or for as long as possible. ??? If the spirometer includes a middle school football coach indicator, use this to guide you in breathing. Slow down your breathing if the indicator goes above the marked areas. 7. Remove the mouthpiece from your mouth and breathe out normally. The piston or ball will return to the bottom of the chamber. 8. Rest for a few seconds, then repeat the steps 10 or more times. ??? Take your time and take a few normal breaths between deep breaths so that you do not get dizzy or light-headed. ??? Do this every 1?2 hours when you are awake. 9. If the spirometer includes a goal marker to show the highest number you have reached (best effort), use this as a goal to work toward during each repetition. 10. After each set of 10 deep breaths, cough a few times. This will help to make sure that your lungs are clear. ??? If you have an incision on your chest or abdomen from surgery, place a pillow or a rolled-up towel firmly against the incision when you cough. This can help to reduce pain while taking deep breaths and coughing. General tips ??? When you are able to get out of bed: ? Walk around often. ? Continue to take deep breaths and cough in order to clear your lungs. ??? Keep using the incentive spirometer until your health care provider says it is okay to stop using it. If you have been in the hospital, you may be told to keep using the spirometer at home. Contact a health care provider if: ??? You are having difficulty using the spirometer. ??? You have trouble using the spirometer as often as instructed. ??? Your pain medicine is not giving enough relief for you to use the spirometer as told. ??? You have a fever. Get help right away if: ??? You develop shortness of breath. ??? You develop a cough with bloody mucus from the lungs. ??? You have fluid or blood coming from an incision site after you cough. Summary ??? An incentive spirometer is a tool that can help you learn to take long, deep breaths to keep your lungs clear and active. ??? You may be asked to use a spirometer after a surgery, if you have a lung problem or a history of smoking, or if you have been inactive for a long period of time. ??? Use your incentive spirometer as instructed every 1?2 hours while you are awake. ??? If you have an incision on your chest or abdomen, place a pillow or a rolled-up towel firmly against your incision when you cough. This will help to reduce pain. ??? Get help right away if you have shortness of breath, you cough up bloody mucus, or blood comes from your incision when you cough. This information is not intended to replace advice given to you by your health care provider. Make sure you discuss any questions you have with your health care provider. Document Revised: 11/04/2020 Document Reviewed: 11/04/2020 Elsevier Patient Education ? 2023 [employer]. [place], [place] [facility] DISCHARGE INSTRUCTIONS: TOTAL KNEE ARTHROPLASTY INCISION CARE: The bandage may be changed by your home Physical Therapist at 7 days postoperatively and worn an additional 7 days. A new Mepilex bandage should then be placed. The bandage is wate (more content not included)...[facility]07-02[facility] NotePatient Education - Text [place], [place] [facility] DISCHARGE INSTRUCTIONS: TOTAL KNEE ARTHROPLASTY INCISION CARE: The bandage may be changed by your home Physical Therapist at 7 days postoperatively and worn an additional 7 days. A new Mepilex bandage should then be placed. The bandage is waterproof, so you may shower at home. Steri-strips (paper tape strips) may be applied to the incision if any slight wound separation is noted. These should remain in place for five days and then they may come off in the shower. Please notify the office if any increase in redness, tenderness, drainage, fever, or wound separation is noted beyond this point. MEDICATIONS: You may resume your home medications at the time of discharge. Arixtra and Lovenox are mild blood thinners that prevent the development of blood clots in the legs. One of these has been used during your hospitalization. After discharge home you should continue the use of two stomach coated baby Aspirin tablets daily with your largest meal for 30 days after home discharge. Please notify your doctor if you have a stomach sensitivity to Aspirin or history of previous stomach ulcers. Pain medication has been prescribed as well. You may continue to use the pain medication every fourhours as needed. Any narcotic pain medication can cause side effects including stomach upset, constipation, or light-headedness. You should not drive or operate machinery, or drink alcohol while using the narcotic pain medication. You should not use other pain medications with this prescription pain medication unless further directed by your physician. PHYSICAL THERAPY Continue the range of motion and strengthening exercises initiated by Physical Therapy in the hospital. Continue weight bearing, as ordered, to the operated knee as directed in Physical Therapy. This will be with the use of a walker or crutches initially. Physical therapy as begun in the hospital will continue at home, possibly with the family readiness support assistant of Home Health Physical Therapy or in the hospital as an outpatient. When you have become independent withthe physical therapy program, this will then be discontinued as a supervised program and you will be instructed to continue the physical therapy exercises at home. Your exercises are zarate to successful rehabilitation. You should gain full extension first, hopefully before hospital discharge, and gain 90 degrees flexion by one month post-op. Do the exercises daily, twice if preferred. DRIVING: Please do not drive for 4-6 weeks pending therapy progress. Driving too soon, you are considered animpaired medical driver, and this could be a problem. It is therefore advised not to drive until after yourfirst office visit following surgery. FOLLOW-UP OFFICE VISIT: Ba Romero, DO [facility] [address] [place] [address] Reviewed: 01-19[facility]07-02-[facility] NoteProgress Note-Physician Patient: MALIA COOK Age: 64 years Sex: Female : 1960 Associated Diagnoses: None Author: Jose Roberto Clay MD Preoperative Information Anesthesia Preop Info: Time patient last ate or drank 02/28/2025 00:00:00. Anesthesia history: Patient history: None. Family history+: None. Informed consent: Signed by patient. Including risks, benefits, and alternatives related to the: Anesthetic plan, Postoperative pain management plan. Re-evaluation prior to induction: Jose Roberto Clay MD. Review of Systems Eye Ear/Nose/Mouth/Throat Respiratory: No shortness of breath, No cough, No wheezing. Cardiovascular: Negative. Gastrointestinal: No heartburn. Musculoskeletal Neurologic Health Status Allergies: Allergic Reactions (Selected) Severity Not Documented Imitrex- Cognitive impairment and hallucinations., Allergies (1) Active Severity Reaction Imitrex Hallucinations, Cognitive impairment Current medications: (Selected) Inpatient Medications Ordered Lactated Ringers IV Ayanna 1000 mL 1,000 mL: 1,000 mL, IV, 150 mL/hr, Routine, Start date 02/28/25 6:00:00 EDT, 6.7 hour(s), Total volume (mL): 1,000, 65.2 kg, 1.71, m2 cefazolin additive + Sodium Chloride 0.9% intravenous solution 50 mL: 2 gm = 1 EA, Powder-Inj, IV Piggyback, PREOP, Routine, Start date 02/28/25 6:00:00 EDT, 100 mL/hr, Infuse over 30 minute(s) tranexamic acid additive + premix generic diluent 100 mL: 1,000 mg = 100 mL, Soln-IV, IV Piggyback,PREOP, Routine, Start date 02/28/25 6:00:00 EDT, 200 mL/hr, Infuse over 30 minute(s) Prescriptions Prescribed CeleBREX 100 mg Cap: 100 mg = 1 cap(s), Oral, BID, # 60 cap(s), Refills(s) 0, Pharmacy: [id number], 161.4, cm, 12/07/24 12:09:00 EDT, Height/Length Dosing, 65.8, kg, 12/07/24 12:09:00EDT, Weight Dosing Documented Medications Documented Albuterol (Eqv-ProAir HFA): Refill(s) 0 Nexium 20 mg Cap-DR: 20 mg = 1 cap(s), Oral, Daily, Control of stomach acid Vitamin C: Refills(s) 0 Vitamin D: Refills(s) 0 ashwagandha: Refill(s) 0 furosemide 20 mg Tab: 20 mg = 1 tab(s), Oral, Daily, PRN edema levothyroxine 75 mcg (0.075 mg) Tab: 75 mcg = 1 tab(s), Oral, Daily, Thyroid magnesium glycinate: Refills(s) 0 montelukast 10 mg Tab: 10 mg = 1 tab(s), Oral, Daily, Asthma tamoxifen 20 mg Tab: 20 mg = 1 tab(s), Oral, Daily, Refills(s) 0, Other (see comment), Home Medications (11) Active Albuterol (Eqv-ProAir HFA) jay CeleBREX 100 mg Cap 100 mg = 1 cap(s), Oral, BID furosemide 20 mg Tab 20 mg = 1 tab(s), PRN, Oral, Daily levothyroxine 75 mcg (0.075 mg) Tab 75 mcg = 1 tab(s), Oral, Daily magnesium glycinate montelukast 10 mg Tab 10 mg = 1 tab(s), Oral, Daily Nexium 20 mg Cap-DR 20 mg = 1 cap(s), Oral, Daily tamoxifen 20 mg Tab 20 mg = 1 tab(s), Oral, Daily Vitamin C Vitamin D , Medications (3) Active Scheduled: (2) ceFAZolin + Sodium Chloride 0.9% Minibag 50 mL 2 gm 1 EA, IV Piggyback, PREOP tranexamic acid + Generic Diluent 100 mL 1,000 mg 100 mL, IV Piggyback, PREOP Continuous: (1) Lactated Ringers 1,000 mL 1,000 mL, IV, 150 mL/hr PRN: (0) Problem list: All Problems Active asthma / SNOMED CT 523624678 / Confirmed Chronic GERD / SNOMED CT 953094536 / Confirmed Edema of B/L lower leg / SNOMED CT 504661893 / Confirmed Hypothyroidism / SNOMED CT 28970059 / Confirmed Resolved: Breast cancer- RESOLVED / SNOMED CT 318116507, Active Problems (4) Active asthma Chronic GERD Edema of B/L lower leg Hypothyroidism Histories Past Medical History: No active or resolved past medical history items have been selected or recorded. Family History: No family history items have been selected or recorded. Procedure history: Arthroscopy of knee (106424372) on 12/20/2024 at 64 Years. Reverse total right shoulder replacement (7730346615) on 05/10/2024 at 63 Years. B/L LASIK (6052400899) in 2004 at 44 Years. Sling procedure of bladder neck (153215286) in 2003 at 43 Years. Repair of shattered R heel (945049746) in 1998 at 38 Years. repair of L broken foot (765228793) in 1998 at 38 Years. Right thoracic outlet syndrome (3930192987) in 1984 at 24 Years. Carpal tunnel release (330948061) in 1979 at 19 Years. Repair of ulnar digital nerve ([id number]) in 1979 at 19 Years. Repair of anterior cruciate ligament of knee joint LEFT (874800180) in 1979 at 19 Years. Abdominal hysterectomy (908787294). History of mastectomy (7428728081). Social History Social & Psychosocial Habits Alcohol 02/28/2025 Risk Assessment: Denies Alcohol Use Substance Abuse 02/28/2025 Risk Assessment: Denies Substance Abuse Tobacco 02/28/2025 Risk Assessment: Denies Tobacco Use . Physical Examination Vital Signs 02/28/2025 6:22 EDT Heart Rate Monitored 76 bpm SpO2 98 % 02/28/2025 6:22 EDT Respiratory Rate 18 br/min 02/28/2025 6:22 EDT Systolic Blood Pressure 113 mmHg Diastolic Bloo (more content not included)...[facility] Hospital[facility]:Result Comment: Electronically Signed By: Obed SIERRA, Jose Roberto Avilez\.br\Date and Time Signed: 02/28/25 06:59 [id number] History of Present illness Narrative* Ba Romero, - 02/12/2025 8:45 AM EDT Images from the original note were not included. @ENCDATE@ [facility] Tito is a 64 y.o. female who presents for Pain and Post-op of the Left Knee (Sx 12/20/24) HPI: History of Present Illness The patient is 7-1/2 weeks status post left knee arthroscopy, removal of loose bodies, chondroplasty, intraosseous Bioplasty, with the surgery performed on 12/20/2024. She reports a satisfactory travel experience, although she encountered some difficulties in mobility. She continues to experience discomfort in her left knee, particularly during ambulation. Despite engaging in strengthening exercises, which have provided some relief, she finds it challenging to walk any significant distance without experiencing soreness. She also notes persistent, albeit reduced, swelling in the knee. To manage the swelling, she applies ice post-exercise. She expresses reluctance towards injection therapy due to previous unsuccessful outcomes and the subsequent 3-month waiting period. Her travel plans include visits to [place] from 05/03/2025 to 05/06/2025, [facility] from 05/28/2025 to early May 2025, and [place] at the end of May 2025 and into June 2025. These trips will involve extensive walking. SUBJECTIVE: MEDICATIONS: Current Outpatient Medications Medication Instructions albuterol (2.5 MG/3ML) 0.083% nebulizer solution aspirin 81 mg celecoxib (CELEBREX) 200 mg, Oral, 2 times daily cephalexin (Keflex) 500 MG capsule Take 4 pills 30-60 mins before dental appointment with food cetirizine (ZyrTEC) 10 MG tablet 1 tablet esomeprazole (NexIUM) [address] capsule famotidine (PEPCID) 20 mg, Nightly furosemide (Lasix) 20 MG tablet ibuprofen 200 MG tablet Take by mouth Journavx 50 mg, Oral, Every 12 hours, For the first dose, take 2 tablets (100 mg) on an empty stomach at least 1 hour before or 2 hours after food. Starting 12 hours after the initial dose, take 1 tablet (50 mg) every 12 hours with or without food. levothyroxine (SYNTHROID, LEVOXYL) 75 mcg, Daily magnesium oxide (MAG-OX) 400 mg, Daily RT montelukast (Singulair) 10 MG tablet pyridoxine (B-6) 50 mg, Daily RT tamoxifen (Nolvadex) 20 MG chemo tablet VITAMIN D PO Take by mouth vitamin E 400 Units, Daily RT ALLERGIES: Allergies Allergen Reactions Sumatriptan Other Reaction(s): Mental Status Change, Other (See Comments), Unknown, Unknown Reaction, floating feeling Other reaction(s): Mental Status Change, Other (See Comments) Other Reaction(s): Cognitive impairment, Hallucinations SURGICAL HISTORY: Past Surgical History: Procedure Laterality Date ANTERIOR CRUCIATE LIGAMENT REPAIR Left 2004 BREAST SURGERY 2021 FOOT SURGERY Right 1998 FRACTURE SURGERY 1998 HYSTERECTOMY 2013 MASTECTOMY 2021 TOTAL SHOULDER ARTHROPLASTY Right 05/10/2024 REV -JAB TUBAL LIGATION 1979 FAMILY HISTORY: Family History Problem Relation Name Age of Onset Hypertension Mother Khushbu Diabetes Father Ted Heart disease Father Ted Cancer Mother's Sister Krystin Heart disease Mother's Brother Joaquin Diabetes Brother Gustavo Diabetes Sister Lore SOCIAL HISTORY: Social History Tobacco Use Smoking status: Never Smokeless tobacco: Never Vaping Use Vaping status: Never Used Substance Use Topics Alcohol use: Never Drug use: Never Depression: Low Risk (03/22/2024) Received from [facility] Depression PHQ-9 Total Score (Interpretation of Total Score 1-4 = Minimal depression; 5-9 = Mild depression; 10-14 = Moderate depression; 15-19 = Moderately severe depression): 0 REVIEW OF SYMPTOMS: Review of Systems The review of systems, history and current medications list are all reviewed today. OBJECTIVE: Visit Vitals Ht 5' 3 Wt 141 lb BMI 24.98 kg/m OB Status Unknown Smoking Status Never BSA 1.69 m Physical Exam Alert and oriented, no acute distress. Mood and affect are appropriate. Ambulating independently. Gait is nonantalgic. Wear flip flops. is present. Left knee: Mild effusion, incisions well healed, flexion to 116 degrees. Tender medial and lateral joint lines. Negative anterior and posterior drawer, no varus or valgus instability. Right knee: Flexion to 135 degrees HEENT The skull is normocephalic. There is no sign of trauma to the head or neck. Hearing is intact for conversational tones. Eye exam reveals conjugate gaze adequate for walking and transfers. CARDIAC The heart is regular rate and rhythm. RESPIRATORY Chest excursion is symmetric and unlabored with lungs clear. ABDOMEN Soft and non-distended. OSTEOPATHIC AND STRUCTURAL EXAM There is no gross evidence of clinically significant kyphosis, or lordosis, or significant leg length discrepancy in a sitting and standing position. Ortho Exam Results ASSESSMENT AND PLAN: I reviewed the history, physical exam, diagnostic studies, and diagnosis with the patient. Assessment & Plan 1. Postoperative status following left knee arthroscopy, removal of loose bodies, chondroplasty, and intraosseous Bioplasty: 2. Advanced degenerative osteoarthrosis, left knee The patient would like to proceed with a left total knee arthroplasty with MobiTX robotic arm assistance. The [employer] platform will be utilized. Surgery will be performed as an outpatient. Wewill utilize tranexamic acid preoperatively and intraoperatively to minimize blood loss. We will enroll the patient in [facility] to assist with perioperative care. We will obtain a CT scan of the affected knee to assist with preoperative planning and intraoperative instrumentation. The CT scan willalso allow for better assessment of the arthritic changes including any potential subchondral deficiencies. The patient has significant joint dysfunction causing severe impairment of function associated withsevere discomfort to such a degree that relief of symptoms and limitations to function were not amenable to conservative non- surgical measures including rest, activity modification, a home exercise pr ogram, icing, NSAIDs, and injections. These methods failed to provide the patient with meaningful or long lasting relief. Based on subjective and objective evidence of anatomic and functional derangements that have imposed severe limitations on the patient in terms of mobility, comfort, and safety as documented in the chart, joint replacement surgery is both medically necessary and reasonable forthis patient. I reviewed the risk, benefits, complications, alternatives, and reasonable expectations. These risks include, but are not limited to, the risks of receiving an anesthetic, the risk of infection, the risk of neurovascular injury that could result in permanent disability, the risk of deep vein thrombosis that could result in potentially fatal pulmonary embolism. Any potential complication could require further surgical intervention. The patient acknowledges these risks and electively signed the consent form. At no time were any guarantees implied or stated. We will schedule the procedure at a mutually convenient time. The surgery will be performed under spinal anesthetic with regional nerve block. I am requesting the regional nerve block to assist with intraoperative and postoperative pain control. Rx for Journavx was sent today to be taken postoperatively. A total of 30 to 39 minutes was spent on this patient encounter which included chart review, check in, nurse triage, history taking, physical examination, diagnostic study review, patient counseling and discussion, entering information into the patient's medical record, and coordinating patient care. Diagnoses and all orders for this visit: Left knee pain, unspecified chronicity - Suzetrigine (Journavx) 50 MG tablet; Take 50 mg by mouth every 12 (twelve) hours for 14 days For the first dose, take 2 tablets (100 mg) on an empty stomach at least 1 hour before or 2 hours after food. Starting 12 hours after the initial dose, take 1 tablet (50 mg) every 12 hours with or withoutfood. Ba Romero D.O. Attestation This note was created using voice recognition through [employer]. documented in this encounterLee's Summit [id number] NoteProgress Note-Physician Patient: MALIA COOK Age: 64 years Sex: Female : 1960 Associated Diagnoses: None Author: Jose Roberto Clay MD Preoperative Information Anesthesia Preop Info: Time patient last ate or drank 12/20/2024 00:00:00. Anesthesia history: Patient history: None. Family history+: None. Informed consent: Signed by patient. Re-evaluation prior to induction: Initial evaluation reviewed: No significant change. Review of Systems Eye Ear/Nose/Mouth/Throat Respiratory: No shortness of breath, No cough. Cardiovascular: Negative. Musculoskeletal Neurologic Health Status Allergies: Allergic Reactions (Selected) Severity Not Documented Imitrex- Cognitive impairment and hallucinations., Allergies (1) Active Severity Reaction Imitrex Hallucinations, Cognitive impairment Current medications: (Selected) Prescriptions Prescribed CeleBREX 100 mg Cap: 100 mg = 1 cap(s), Oral, BID, # 60 cap(s), Refills(s) 0, Pharmacy: [id number], 161.4, cm, 12/07/24 12:09:00 EDT, Height/Length Dosing, 65.8, kg, 12/07/24 12:09:00EDT, Weight Dosing Colace 100 mg Cap: 100 mg = 1 cap(s), Oral, BID, PRN for constipation, # 20 cap(s), Refills(s) 0, Pharmacy: [id number], 161.4, cm, 12/07/24 12:09:00 EDT, Height/Length Dosing, 65.8, kg, 12/07/24 12:09:00 EDT, Weight Dosing Ames 325 mg-5 mg oral tablet: See Instructions, for pain, 40 tab(s), Refill(s) 0, 1-2 tab(s) Oral q4hr, [id number], 161.4, cm, 12/07/24 12:09:00 EDT, Height/Length Dosing, 65.8, kg, 12/07/24 12:09:00 EDT, Weight Dosing aspirin 81 mg Oral EC Tab: 81 mg = 1 tab(s), Oral, Daily, # 30 tab(s), Refills(s) 0, Pharmacy: [id number], 161.4, cm, 12/07/24 12:09:00 EDT, Height/Length Dosing, 65.8, kg, 12/07/24 12:09:00 EDT, Weight Dosing Documented Medications Documented Albuterol (Eqv-ProAir HFA): Refill(s) 0 Nexium 20 mg Cap-DR: 20 mg = 1 cap(s), Oral, Daily, Control of stomach acid Vitamin B Complex oral capsule: Refill(s) 0 Vitamin C: Refills(s) 0 Vitamin D: Refills(s) 0 ashwagandha: Refill(s) 0 furosemide 20 mg Tab: 20 mg = 1 tab(s), Oral, Daily, PRN edema levothyroxine 75 mcg (0.075 mg) Tab: 75 mcg = 1 tab(s), Oral, Daily, Thyroid magnesium glycinate: Refills(s) 0 montelukast 10 mg Tab: 10 mg = 1 tab(s), Oral, Daily, Asthma tamoxifen 20 mg Tab: 20 mg = 1 tab(s), Oral, Daily, Refills(s) 0, Other (see comment), Home Medications (15) Active Albuterol (Eqv-ProAir HFA) [facility] aspirin 81 mg Oral EC Tab 81 mg = 1 tab(s), Oral, Daily CeleBREX 100 mg Cap 100 mg = 1 cap(s), Oral, BID Colace 100 mg Cap 100 mg = 1 cap(s), PRN, Oral, BID furosemide 20 mg Tab 20 mg = 1 tab(s), PRN, Oral, Daily levothyroxine 75 mcg (0.075 mg) Tab 75 mcg = 1 tab(s), Oral, Daily magnesium glycinate montelukast 10 mg Tab 10 mg = 1 tab(s), Oral, Daily Nexium 20 mg Cap-DR 20 mg = 1 cap(s), Oral, Daily Ames 325 mg-5 mg oral tablet See Instructions, PRN tamoxifen 20 mg Tab 20 mg = 1 tab(s), Oral, Daily Vitamin B Complex oral capsule Vitamin C Vitamin D , No qualifying data available Problem list: All Problems Active asthma / SNOMED CT 056359631 / Confirmed Chronic GERD / SNOMED CT 572920266 / Confirmed Edema of B/L lower leg / SNOMED CT 944387068 / Confirmed Hypothyroidism / SNOMED CT 85963446 / Confirmed Resolved: Breast cancer- RESOLVED / SNOMED CT 682299488, Active Problems (4) Active asthma Chronic GERD Edema of B/L lower leg Hypothyroidism Histories Past Medical History: No active or resolved past medical history items have been selected or recorded. Family History: No family history items have been selected or recorded. Procedure history: Arthroscopy of knee (765417297) on 12/20/2024 at 64 Years. Reverse total right shoulder replacement (3625267980) on 05/10/2024 at 63 Years. B/L LASIK (0885538720) in 2004 at 44 Years. Sling procedure of bladder neck (621537151) in 2003 at 43 Years. Repair of shattered R heel (916377146) in 1998 at 38 Years. repair of L broken foot (649655141) in 1998 at 38 Years. Right thoracic outlet syndrome (0909351786) in 1984 at 24 Years. Carpal tunnel release (422744655) in 1979 at 19 Years. Repair of ulnar digital nerve (392634553518206) in 1979 at 19 Years. Repair of anterior cruciate ligament of knee joint LEFT (691425754) in 1979 at 19 Years. Abdominal hysterectomy (395532055). History of mastectomy (7297875841). Social History Social & Psychosocial Habits Alcohol 12/20/2024 Risk Assessment: Denies Alcohol Use Substance Abuse 12/20/2024 Risk Assessment: Denies Substance Abuse Tobacco 12/20/2024 Risk Assessment: Denies Tobacco Use . Physical Examination No qualifying data available Airway: Mallampati classification: II (soft palate, fauces, uvula visible). Respiratory: Lungs are clear to auscultation, Respirations are non-labored, adequate air e (more content not included)...[facility] HospitalComment on above:Result Comment: Electronically Signed By: Jose Roberto Clay MD\.br\Date and Time Signed: 12/29/24 13:00 [id number] NoteProgress Note-Physician Patient: MALIA COOK Age: 64 years Sex: Female : 1960 Associated Diagnoses: None Author: Jose Roberto Clay MD Preoperative Information Anesthesia Preop Info: Time patient last ate or drank 12/20/2024 00:00:00. Anesthesia history: Patient history: None. Family history+: None. Informed consent: Signed by patient. Re-evaluation prior to induction: Initial evaluation reviewed: No significant change. Review of Systems Eye: Negative except as documented in history of present illness. Ear/Nose/Mouth/Throat: Negative except as documented in history of present illness. Respiratory: Negative except as documented in history of present illness. Cardiovascular: Negative except as documented in history of present illness. Musculoskeletal: Negative except as documented in history of present illness. Neurologic: Negative except as documented in history of present illness. Health Status Allergies: Allergic Reactions (Selected) Severity Not Documented Imitrex- Cognitive impairment and hallucinations., Allergies (1) Active Severity Reaction Imitrex Hallucinations, Cognitive impairment Current medications: (Selected) Inpatient Medications Ordered Sodium Chloride 0.9% IV Ayanna 1000 mL 1,000 mL: 1,000 mL, IV, 150 mL/hr, Routine, Start date 12/20/2509:00:00 EDT, 6.7 hour(s), Total volume (mL): 1,000, 65.8 kg, 1.72, m2 cefazolin additive + Sodium Chloride 0.9% intravenous solution 50 mL: 2 gm = 1 EA, Powder-Inj, IV Piggyback, PREOP, Routine, Start date 12/20/24 10:00:00 EDT, 100 mL/hr, Infuse over 30 minute(s) tranexamic acid additive + premix generic diluent 100 mL: 1,000 mg = 100 mL, Soln-IV, IV Piggyback,PREOP, Routine, Start date 12/20/24 10:00:00 EDT, 200 mL/hr, Infuse over 30 minute(s) Documented Medications Documented Albuterol (Eqv-ProAir HFA): Refill(s) 0 Nexium 20 mg Cap-DR: 20 mg = 1 cap(s), Oral, Daily, Control of stomach acid Vitamin B Complex oral capsule: Refill(s) 0 Vitamin C: Refills(s) 0 Vitamin D: Refills(s) 0 ashwagandha: Refill(s) 0 furosemide 20 mg Tab: 20 mg = 1 tab(s), Oral, Daily, PRN edema levothyroxine 75 mcg (0.075 mg) Tab: 75 mcg = 1 tab(s), Oral, Daily, Thyroid magnesium glycinate: Refills(s) 0 montelukast 10 mg Tab: 10 mg = 1 tab(s), Oral, Daily, Asthma tamoxifen 20 mg Tab: 20 mg = 1 tab(s), Oral, Daily, Refills(s) 0, Other (see comment), Home Medications (11) Active Albuterol (Eqv-ProAir HFA) ashwagandha furosemide 20 mg Tab 20 mg = 1 tab(s), PRN, Oral, Daily levothyroxine 75 mcg (0.075 mg) Tab 75 mcg = 1 tab(s), Oral, Daily magnesium glycinate montelukast 10 mg Tab 10 mg = 1 tab(s), Oral, Daily Nexium 20 mg Cap-DR 20 mg = 1 cap(s), Oral, Daily tamoxifen 20 mg Tab 20 mg = 1 tab(s), Oral, Daily Vitamin B Complex oral capsule Vitamin C Vitamin D , Medications (3) Active Scheduled: (2) ceFAZolin + Sodium Chloride 0.9% Minibag 50 mL 2 gm 1 EA, IV Piggyback, PREOP tranexamic acid + Generic Diluent 100 mL 1,000 mg 100 mL, IV Piggyback, PREOP Continuous: (1) Sodium Chloride 0.9% 1,000 mL 1,000 mL, IV, 150 mL/hr PRN: (0) Problem list: All Problems Active asthma / SNOMED CT 968657961 / Confirmed Chronic GERD / SNOMED CT 052818950 / Confirmed Edema of B/L lower leg / SNOMED CT 172680902 / Confirmed Hypothyroidism / SNOMED CT 80107696 / Confirmed Resolved: Breast cancer- RESOLVED / SNOMED CT 689596836, Active Problems (4) Active asthma Chronic GERD Edema of B/L lower leg Hypothyroidism Histories Past Medical History: No active or resolved past medical history items have been selected or recorded. Family History: No family history items have been selected or recorded. Procedure history: Reverse total right shoulder replacement (1692991526) on 05/10/2024 at 63 Years. B/L LASIK (3169302283) in 2004 at 44 Years. Sling procedure of bladder neck (986614316) in 2003 at 43 Years. Repair of shattered R heel (616610502) in 1998 at 38 Years. repair of L broken foot (143423518) in 1998 at 38 Years. Right thoracic outlet syndrome (4369420490) in 1984 at 24 Years. Carpal tunnel release (150714861) in 1979 at 19 Years. Repair of ulnar digital nerve (339406526986441) in 1979 at 19 Years. Repair of anterior cruciate ligament of knee joint LEFT (884955170) in 1979 at 19 Years. Abdominal hysterectomy (374549283). History of mastectomy (9134015833). Social History Social & Psychosocial Habits Alcohol 12/07/2024 Risk Assessment: Denies Alcohol Use Substance Abuse 12/07/2024 Risk Assessment: Denies Substance Abuse Tobacco 12/07/2024 Risk Assessment: Denies Tobacco Use . Physical Examination No qualifying data available Airway: Mallampati classification: II (soft palate, fauces, uvula visible). Respiratory: adequate air exchange. Cardiovascular: Regular rhythm. Review / Management Results review: No qualifying data available . (more content not included)...[facility] HospitalComment on above:Result Comment: Electronically Signed By: Jose Roberto Clay MD [id number] NoteProgress Note-Physician Patient: MALIA COOK Age: 64 years Sex: Female : 1960 Associated Diagnoses: None Author: Torie MATSON, Queen Patricio BAUTISTA Procedure Nerve Block Block Type: Adductor canal block. Laterality: Left. Informed consent for anesthesia management: Anesthesia options discussed including nerve block, Description of the procedure, risks, benefits, and alternatives was provided, The patient's questions were addressed. Time out: Confirmed correct patient, procedure and site. Time: Date/Time 12/20/2024 11:40:00. Indication: Block for postoperative pain management as requested by surgeon. Anesthesia Method: IV Sedation with monitored anesthesia care, The patient remained awake and able to interact in a meaningful way throughout the procedure. Preparation: The patient was placed in the following position Supine, Continuous pulse oximetry applied, Using maximal sterile barrier technique per current [facility] guidelines including hand hygeine, Guidance (Ultrasound used to identify anatomical landmarks, Using sterile gel and probe covers, Permanent image retained), The site was prepped with ChloraPrep. Procedure: Anesthetic Agent 10ml of 0.25% Bupivacaine, 10ml of 1.3% Exparel, Catheter size (21 guage, pajunk), Needle was inserted without pain or parasthesia in the conscious patient, Number of attempts 1, Negative attempt at aspiration for blood, Medial and lateral spread of the anesthestic was observed, Periodic negative attempts at aspiration of blood were made as the local was injected, No pain or parathesia were elicited with injection of the anesthetic in the conscious patient, It was idetified that the correct anesthetic agent was administered to the correct site. Complications: The patient tolerated the procedure as expected, Procedure completed by Queen Torie CRNA under my supervision.[facility] Comment on above:Result Comment: Electronically Signed By: Torie MATSON CRNA, Queen N.\.br\Date and Time Signed: 12/20/24 11:46 EDT wrong [id number] NoteProgress Note-Physician Patient: MALIA COOK Age: 64 years Sex: Female : 1960 Associated Diagnoses: None Author: Jose Roberto Clay MD Postoperative Information Postoperative disposition: Postoperative disposition: To PACU. Optimetrix number: Optimetrix number [id number]. Anesthetic utilized: General. Health Status Allergies: Allergic Reactions (Selected) Severity Not Documented Imitrex- Cognitive impairment and hallucinations. Physical Examination Vital Signs 12/20/2024 15:10 EDT Heart Rate Monitored 99 bpm SpO2 98 % 12/20/2024 15:10 EDT Systolic Blood Pressure 103 mmHg Diastolic Blood Pressure 67 mmHg Mean Arterial Pressure, Monitered 79 mmHg Pain Assessment: Controlled. General: Awake, Appropriate. Respiratory: Adequate air exchange. Cardiovascular: Stable. Neurological Assessment Anesthetic outcome No anesthetic complications noted. Adequate pain relief. Review / Management Condition: Stable. Plan Transfer/Discharge: Transfer/Discharge Discharge when meets criteria ( To home ).[facility]Result Comment: Electronically Signed By: Jose Roberto Clay MD\.br\Date and Time Signed: 12/21/24 09:31 EDT 12-20-2024 Hospital Discharge instructions Patient Education 12/20/2024 14:07:16 Knee Cryocuff Patient Instructions - FT (CUSTOM) 12/20/2024 14:07:14 Post Op Patient Instructions - FT (CUSTOM) 12/20/2024 13:43:43 Kenia Romero - Knee Arthroscopy (Custom) [place], [place] [facility] DISCHARGE INSTRUCTIONS: KNEE ARTHROSCOPY Diet Begin with a liquid diet and advance to your normal diet as tolerated. Activity You may gradually increase your activity as tolerated. Until your first post- operative visit elevate your knee higher than your heart, whenever you are sitting or lying down. Knee swelling will gradually decrease after surgery. Increased swelling is usually a sign of over-activity and should be a signal for you to be less active and apply ice as needed. Your exercise program is the zarate to successful rehabilitation of your knee. Do the exercises daily as instructed. You will receive further exercises at your next visit as needed. The possible need for Physical Therapy will then be discussed. You may bear weight on your operative leg, but you use your crutches or walker for support when ambulating. This is important for protection of your knee after surgery. Although you will find that you can walk without crutches or walker, it is not healthy for you until you regain adequate muscle strength. Use your crutches or walker until your limp is gone. You are encouraged to bend your knee as this is comfortably tolerated. Do not forcefully bend untilyou have permission by your surgeon. Driving is legal, but if you are involved in an accident, you must be able to prove that you maintained full control of your vehicle. For this reason, it is advised that you do not drive until your strength returns, generally in 1-2 weeks. Similarly, all sports activities are discouraged, at least until your first post-operative visit at which time we will discuss how and when to resume sports. Increased Pain Usually this is the result of over-activity and should respond well to rest, ice and elevation. If this does not provide relief, take the pain medication as directed but do not return to activity. Ifsevere pain persists despite rest, elevation and medication, contact your surgeon. You will be given a prescription for pain medication when you leave the hospital. Please inform us of any known drug allergy. If you have any problems with the medication, it should be discontinued and our office notified. The sensation of splashing of fluid inside the knee is not cause for concern. It represents residual fluids from surgery and they will be absorbed generally in the first few days. Elevation of the leg and application of an ice pack to the knee will minimize swelling and discomfort in the first 48 hours after surgery. Incisions The portals of entry may be sore and develop bruising over the next several days. The bruising eventually resolves and does not require any special care. There may be some numbness around the portalsthat can take several days or several weeks to resolve as the swelling subsides. Do not apply creams or lotions to your knee. Your portals will heal best if kept dry. [facility] Discharge Instructs for Knee ArthroscopyPage 2 Dressing A soft compression dressing has been applied to your knee. This dressing should be comfortable and absorb any leakage of fluid after surgery. Although the dressing may become moist or blood stained, this is not usually a cause for concern. If this persists beyond 2-3 days, notify your surgeon. You may remove the dressing 2 days after your surgery. You may possibly have tape strips or suturesunder the dressing. Do not remove these if present. Apply bandaids to the operative sites and keep these clean until your first post-operative visit. Apply betadine and band-aids to the puncture wounds in the morning (and again in the evening as needed) on a daily basis. Bathing You may shower 2 days after surgery. Bathing or soaking in water should be avoided until your firstpost-operative visit. Keep incisions dry until healed over. Precautions If you develop fever (101 degrees or above), increasing pain (not relieved by rest, elevation, ice and medication as prescribed), redness, or persistent swelling in your calves or feet that doesn't respond to elevation, please contact the office or the hospital. If you notice increasing drainage from the operative portals after the first few days, this should also be reported. You may have been prescribed aspirin after surgery. Take this as prescribed to help prevent blood clots. Return Visit Your post-operative follow-up appointment is generally between 7 and 10 days after surgery. You will be given an appointment card with this information. Do not hesitate to call the office or the hospital if any problems or questions arise before your appointment. Ba Romero, DO [facility] [address] [place] [id number] Reviewed: 3-18 Follow Up Care 11/16/2024 14:19:01 With:Ba Romero Address: [address] [place] [address]- Business (1) When:01/01/2025 10:00:00 [facility] 04-23-2025 NotePatient Education - Text [place], [place] [facility] DISCHARGE INSTRUCTIONS: KNEE ARTHROSCOPY Diet Begin with a liquid diet and advance to your normal diet as tolerated. Activity You may gradually increase your activity as tolerated. Until your first post- operative visit elevate your knee higher than your heart, whenever you are sitting or lying down. Knee swelling will gradually decrease after surgery. Increased swelling is usually a sign of over-activity and should be a signal for you to be less active and apply ice as needed. Your exercise program is the zarate to successful rehabilitation of your knee. Do the exercises daily as instructed. You will receive further exercises at your next visit as needed. The possible need for Physical Therapy will then be discussed. You may bear weight on your operative leg, but you use your crutches or walker for support when ambulating. This is important for protection of your knee after surgery. Although you will find that you can walk without crutches or walker, it is not healthy for you until you regain adequate muscle strength. Use your crutches or walker until your limp is gone. You are encouraged to bend your knee as this is comfortably tolerated. Do not forcefully bend untilyou have permission by your surgeon. Driving is legal, but if you are involved in an accident, you must be able to prove that you maintained full control of your vehicle. For this reason, it is advised that you do not drive until your strength returns, generally in 1-2 weeks. Similarly, all sports activities are discouraged, at least until your first post-operative visit at which time we will discuss how and when to resume sports. Increased Pain Usually this is the result of over-activity and should respond well to rest, ice and elevation. If this does not provide relief, take the pain medication as directed but do not return to activity. Ifsevere pain persists despite rest, elevation and medication, contact your surgeon. You will be given a prescription for pain medication when you leave the hospital. Please inform us of any known drug allergy. If you have any problems with the medication, it should be discontinued and our office notified. The sensation of splashing of fluid inside the knee is not cause for concern. It represents residual fluids from surgery and they will be absorbed generally in the first few days. Elevation of the leg and application of an ice pack to the knee will minimize swelling and discomfort in the first 48 hours after surgery. Incisions The portals of entry may be sore and develop bruising over the next several days. The bruising eventually resolves and does not require any special care. There may be some numbness around the portalsthat can take several days or several weeks to resolve as the swelling subsides. Do not apply creams or lotions to your knee. Your portals will heal best if kept dry. [facility] Discharge Instructs for Knee Arthroscopy Page 2 Dressing A soft compression dressing has been applied to your knee. This dressing should be comfortable and absorb any leakage of fluid after surgery. Although the dressing may become moist or blood stained, this is not usually a cause for concern. If this persists beyond 2-3 days, notify your surgeon. You may remove the dressing 2 days after your surgery. You may possibly have tape strips or suturesunder the dressing. Do not remove these if present. Apply bandaids to the operative sites and keep these clean until your first post-operative visit. Apply betadine and band-aids to the puncture wounds in the morning (and again in the evening as needed) on a daily basis. Bathing You may shower 2 days after surgery. Bathing or soaking in water should be avoided until your firstpost-operative visit. Keep incisions dry until healed over. Precautions If you develop fever (101 degrees or above), increasing pain (not relieved by rest, elevation, ice and medication as prescribed), redness, or persistent swelling in your calves or feet that doesn't respond to elevation, please contact the office or the hospital. If you notice increasing drainage from the operative portals after the first few days, this should also be reported. You may have been prescribed aspirin after surgery. Take this as prescribed to help prevent blood clots. Return Visit Your post-operative follow-up appointment is generally between 7 and 10 days after surgery. You will be given an appointment card with this information. Do not hesitate to call the office or the hospital if any problems or questions arise before your appointment. Ba Romero DO [facility] [address] [place] [address] [facility]: [facility]* Diagnosis Onset Date Resolution Status Admit Date Allergic rhinitis acuteApril 2024 8:20amGERD (gastroesophageal reflux disease)acuteApril 2024 8:20amReactive airway diseaseacuteApril 2024 8:20amUpper airway cough syndromeacuteApril 2024 8:20amHypothyroidismacuteApril 2024 9:07am [facility] Work Phone: [phone] 410-623803-20-2025 History of Present illness Narrative* Ba Romero, - 11/16/2024 1:45 PM EDT Images from the original note were not included. @ENCDATE@ [facility] Tito is a 64 y.o. female who presents for Follow-up of the Right Shoulder (R Rev TSA 05/10/24 ) HPI: History of Present Illness The patient is a 64-year-old female who presents for evaluation of the right shoulder and continuedright knee pain. She reports that the Zilretta injection administered on 2024 provided relief for approximately 3 weeks. However, she experienced difficulty in ambulation during her recent vacation. She is 6 months s/p right reverse TSA and is doing well with the shoulder. She has been able to sleep on her right side without discomfort. SUBJECTIVE: MEDICATIONS: Current Outpatient Medications Medication Instructions albuterol (2.5 MG/3ML) 0.083% nebulizer solution celecoxib (CELEBREX) 200 mg, 2 times daily cetirizine (ZyrTEC) 10 MG tablet 1 tablet esomeprazole (NexIUM) [address] capsule Daily famotidine (PEPCID) 20 mg, Nightly furosemide (Lasix) 20 MG tablet .COMPLEX ibuprofen 200 MG tablet Take by mouth levothyroxine (SYNTHROID, LEVOXYL) 75 mcg, Daily magnesium oxide (MAG-OX) 400 mg, Daily RT montelukast (Singulair) 10 MG tablet Daily pyridoxine (B-6) 50 mg, Daily RT tamoxifen (Nolvadex) 20 MG chemo tablet Daily VITAMIN D PO Take by mouth vitamin E 400 Units, Daily RT ALLERGIES: Allergies Allergen Reactions Sumatriptan Other Reaction(s): Mental Status Change, Other (See Comments), Unknown, Unknown Reaction, floating feeling Other reaction(s): Mental Status Change, Other (See Comments) Other Reaction(s): Cognitive impairment, Hallucinations SURGICAL HISTORY: Past Surgical History: Procedure Laterality Date ANTERIOR CRUCIATE LIGAMENT REPAIR Left 2004 FOOT SURGERY Right 1998 MASTECTOMY 2021 TOTAL SHOULDER ARTHROPLASTY Right 05/10/2024 REV -NIELS FAMILY HISTORY: Family History Problem Relation Name Age of Onset Hypertension Mother Diabetes Father Ted Heart disease Father Ted Cancer Mother's Sister Krystin Heart disease Mother's Brother Diabetes Brother Gustavo Diabetes Sister Lore SOCIAL HISTORY: Social History Tobacco Use Smoking status: Never Smokeless tobacco: Never Vaping Use Vaping status: Never Used Substance Use Topics Alcohol use: Never Drug use: Never Depression: Low Risk (03/22/2024) Received from [facility] Depression PHQ-9 Total Score (Interpretation of Total Score 1-4 = Minimal depression; 5-9 = Mild depression; 10-14 = Moderate depression; 15-19 = Moderately severe depression): 0 REVIEW OF SYMPTOMS: Review of Systems The review of systems, history and current medications list are all reviewed today. OBJECTIVE: Visit Vitals Ht 5' 3.5 Wt 141 lb BMI 24.59 kg/m OB Status Unknown Smoking Status Never BSA 1.69 m Physical Exam Alert and oriented, no acute distress. Mood and affect are appropriate. Ambulating independently. Gait is nonantalgic. RIGHT SHOULDER Incision well healed. No swelling. The patient's shoulder can internally rotate to about T11. It can be raised all the way to 150 degrees, abducted to 90 degrees, and externally rotated to 90 degrees with a smooth motion. There is good strength with external rotation and resisted supination. The biceps contour looks normal. LEFT KNEE Well healed surgical incisions. No effusion. No patellar instability. Tender medial joint line. Tender medial patellar facet. No varus or valgus instability. Negative posterior drawer HEENT The skull is normocephalic. There is no sign of trauma to the head or neck. Hearing is intact for conversational tones. Eye exam reveals conjugate gaze adequate for walking and transfers. CARDIAC The heart is regular rate and rhythm. RESPIRATORY Chest excursion is symmetric and unlabored with lungs clear. ABDOMEN Soft and non-distended. OSTEOPATHIC AND STRUCTURAL EXAM There is no gross evidence of clinically significant kyphosis, or lordosis, or significant leg length discrepancy in a sitting and standing position. Ortho Exam Results Imaging Two views, AP/axillary right shoulder(s) taken today and saved to the permanent medical record are reviewed. Prosthesis is unchanged in position and alignment. No signs of prosthetic wear or loosening. No periprosthetic fractures. MRI left knee NOMS IC 01/04/24 shows more significant cartilage loss in the medial compartment than anticipated based on the xrays. Tear in the medial meniscus. ACL graft intact. PCL, collaterals, lateral meniscus intact. Subchondral edema in medial tibial plateau. ASSESSMENT AND PLAN: I reviewed the history, physical exam, diagnostic studies, and diagnosis with the patient. Assessment & Plan 1. Post-traumatic arthritis, degenerative medial meniscus tear, subchondral bone edema medial tibial plateau, history of ACL reconstruction, left knee The patient reports that the Zilretta injection administered on 2024, provided relief for approximately 3 weeks. Examination reveals good range of motion and strength, but there is evidence of bone stress likely due to meniscus tears. A comprehensive discussion was held regarding potential treatment options, including arthroscopic surgery and the use of bone marrow injections to strengthen the stressed bone area. The procedure will involve taking a small amount of bone marrow from the tibia and injecting it into the stressed area after addressing the meniscus tear. This is scheduled for12/20/2024. The MRI will be sent to the hospital to ensure proper visualization during the procedure . The patient would like to proceed with left knee arthroscopy, meniscal work as needed, intraosseousbioplasty to the medial tibial plateau, and chondroplasty. I explained that the decision on how to address the meniscus will be made intraoperatively depending on tear pattern and location. I also explained the different rehab protocols following repair versus partial meniscectomy. The patient understands that any discomfort he/she has in the knee as a result of underlying arthritic changes will likely not improve following surgery. I reviewed the risk, benefits, complications, alternatives, and reasonable expectations. These risks include, but are not limited to, the risks of receiving an anesthetic, the risk of infection, the risk of neurovascular injury that could result in permanent disability, the risk of deep vein thrombosis that could result in potentially fatal pulmonary embolism. Any potential complication could require further surgical intervention. The patient acknowledges these risks and electively signed the consent form. At no time were any guarantees implied or stated. We will schedule the procedure at a mutually convenient time. Surgery will be performed under a general anesthetic as well as a regional anesthetic nerve block. I am requesting the nerve block to assist with intraoperative and postoperative pain control. We will utilize tranexamic acid preoperatively to help improve visualization and minimize blood loss. 2. 6 months status post right reverse total shoulder arthroplasty I reminded the patient of the need for lifelong prophylactic antibiotics prior to any dental procedures. A total of 30 to 39 minutes was spent on this patient encounter which included chart review, check in, nurse triage, history taking, physical examination, diagnostic study review, patient counseling and discussion, entering information into the patient's medical record, and coordinating patient care. Diagnoses and all orders for this visit: S/P reverse total shoulder arthroplasty, right - XR shoulder 2+ views right Ba Romero D.O. Attestation This note was created using voice recognition through [employer]. documented in this encounterLee's Summit [id number] History of Present illness Narrative* Carlo Glover MA - 2024 10:15 AM ESTAssociated Order(s): L Inj/Asp: L knee Post-Procedure Diagnose(s): Left knee pain, unspecified chronicity L Inj/Asp: L knee on 2024 10:55 AM Indications: pain Details: 22 G needle Medications: 32 mg triamcinolone acetonide 32 MG Consent was given by the patient. * Ba Romero DO - 2024 10:15 AM EST Images from the original note were not included. @NEELAM@ Malia Cook is a 64 y.o. female who presents for Osteoarthritis and Follow-up of the Left Knee HPI: History of Present Illness The patient is a 63-year-old female who presents today for evaluation of left knee pain. She received a Zilretta injection on 06/13/2024, which provided relief for approximately 3 months. However, following the use of a stationary bike during the period, she experienced severe difficulty in ambulation the subsequent day. She also reported noticeable swelling in the affected knee. She has been managing the pain with ice application, ibuprofen, and Tylenol, particularly during the initial two weeks post-onset. Currently, she is able to walk on a treadmill while wearing a brace. She has previously tried Celebrex, but discontinued its use due to gastrointestinal side effects. Mobic was also trialed, but it did not provide any relief. She finds ibuprofen to be the most effective analgesic, taking four 200 mg tablets three times daily, occasionally reducing the dosage to twice daily, always with food. She has not yet tried Voltaren gel. She also takes medication for gastroesophageal reflux disease (GERD). SUBJECTIVE: MEDICATIONS: Current Outpatient Medications Medication Instructions albuterol (2.5 MG/3ML) 0.083% nebulizer solution cetirizine (ZyrTEC) 10 MG tablet 1 tablet esomeprazole (NexIUM) [address] capsule Daily famotidine (PEPCID) 20 mg, Nightly furosemide (Lasix) 20 MG tablet .COMPLEX ibuprofen 200 MG tablet Take by mouth levothyroxine (SYNTHROID, LEVOXYL) 75 mcg, Daily magnesium oxide (MAG-OX) 400 mg, Daily RT meloxicam (Mobic) 15 MG tablet Daily montelukast (Singulair) 10 MG tablet Daily pyridoxine (B-6) 50 mg, Daily RT tamoxifen (Nolvadex) 20 MG chemo tablet Daily VITAMIN D PO Take by mouth vitamin E 400 Units, Daily RT ALLERGIES: Allergies Allergen Reactions Sumatriptan Other Reaction(s): Mental Status Change, Other (See Comments), Unknown, Unknown Reaction, floating feeling Other reaction(s): Mental Status Change, Other (See Comments) Other Reaction(s): Cognitive impairment, Hallucinations SURGICAL HISTORY: Past Surgical History: Procedure Laterality Date ANTERIOR CRUCIATE LIGAMENT REPAIR Left 2004 FOOT SURGERY Right 1998 MASTECTOMY 2021 TOTAL SHOULDER ARTHROPLASTY Right 05/10/2024 REV -JAB FAMILY HISTORY: Family History Problem Relation Name Age of Onset Hypertension Mother Diabetes Father Ted Heart disease Father Ted Cancer Mother's Sister Krytsin Heart disease Mother's Brother Diabetes Brother Gustavo Diabetes Sister Lore SOCIAL HISTORY: Social History Tobacco Use Smoking status: Never Smokeless tobacco: Never Vaping Use Vaping status: Never Used Substance Use Topics Alcohol use: Never Drug use: Never Depression: Low Risk (03/22/2024) Received from [facility] Depression PHQ-9 Total Score (Interpretation of Total Score 1-4 = Minimal depression; 5-9 = Mild depression; 10-14 = Moderate depression; 15-19 = Moderately severe depression): 0 REVIEW OF SYMPTOMS: Review of Systems The review of systems, history and current medications list are all reviewed today. OBJECTIVE: Visit Vitals Ht 5' 3.5 Wt 142 lb BMI 24.76 kg/m OB Status Unknown Smoking Status Never BSA 1.7 m Physical Exam Alert and oriented, no acute distress. Mood and affect are appropriate. Ambulating independently. Gait is nonantalgic. LEFT KNEE Well healed surgical incisions. No effusion. No patellar instability. Tender medial joint line. Tender medial patellar facet. No varus or valgus instability. Negative posterior drawer Ortho Exam Results ASSESSMENT AND PLAN: I reviewed the history, physical exam, diagnostic studies, and diagnosis with the patient. Assessment & Plan 1. Advanced posttraumatic osteoarthrosis, left knee. She has been using ibuprofen 800 mg three times a day, which has been effective but poses a risk ofstomach ulcers. She was advised to try Voltaren gel as a topical alternative to reduce systemic effects. She was also advised to adjust the seat height and resistance on her stationary bike to minimize knee bending and movement. Zilretta will be repeated today. After informed consent and using sterile technique, the superolateral aspect of the left knee(s) was prepped with alcohol and Betadine. The skin was anesthetized with ethyl chloride and the knee was then injected with 5 mL Zilretta with a 22-gauge 1 1/2 inch needle. The patient tolerated this well.A Band-Aid was applied. The patient was instructed to ice the knee and to watch for any signs of infection including redness, increased pain in the knee, drainage from the injection site, fever, chills, etc. The patient was instructed to call the office if he/she experiences any adverse reaction from the injection. A lubricant injection may be considered in the future. Follow up in October with xrays of right shoulder. A total of 30 to 39 minutes was spent on this patient encounter which included chart review, check in, nurse triage, history taking, physical examination, diagnostic study review, patient counseling and discussion, entering information into the patient's medical record, and coordinating patient care. Diagnoses and all orders for this visit: Left knee pain, unspecified chronicity - L Inj/Asp: L knee Ba Romero D.O. Attestation This note was created using voice recognition through [employer]. documented in this encounterLee's Summit [id number] History of Present illness Narrative* Olamide Euceda - 08/14/2024 2:00 PM EST NOTE: VERIFY NAME, , ADDRESS FOR CLIENT(UPDATE CATAPULT) Bra Prosthesis Note Malia Cook is being seen today at [facility] by Olamide Euceda for a Breast Issue. Her surgery was on 2021. 06/2023. Mastectomy: R__X L__ Bilateral __ Lumpectomy: R__ L__ Bilateral__ Reconstruction: Yes_X_ No __ Reconstruction removed Yes_X_ No__ Orders Orders: Orders reviewed ___X_ Dx code ___Z85.3 Measurements Bra Band: 31.5 inches Fullest part of Bust: NA inches Final band size:36/38 Final cup size:A / AA Prosthesis/Form: Size: ABC 13691 SZ 4 09/08/23 Additional Visit information Client [...] 36A CH, ABC 131 MED NU, ABC 72676 SZ 4. Product ordered: - DID YOU RELEASE CARE INSTRUCTIONS Y 03/22/24- DISPENSED & BILLED [facility]- ANI 5726X 36A X2, ABC 131 BK MED 08/15/24- DISPENSED & BILLED A/B- ANI 5726X 36A X2, ANI 5722X 36A. [facility] History of Present illness Narrative* Ba Romero, DO - 07/25/2024 8:00 AM EST Images from the original note were not included. @ENCDATE@ [facility] Tito is a 63 y.o. female who presents for No chief complaint on file. HPI: History of Present Illness The patient is a 63-year-old female who presents for follow-up 11 weeks after right reverse total shoulder arthroplasty. The date of surgery was 05/10/2024. She has been performing her exercises as instructed. Her left knee, which was injected with Zilretta on 06/13/2024, is currently wonderful. SUBJECTIVE: MEDICATIONS: Current Outpatient Medications Medication Instructions albuterol (2.5 MG/3ML) 0.083% nebulizer solution cetirizine (ZyrTEC) 10 MG tablet 1 tablet esomeprazole (NexIUM) [address] capsule Daily famotidine (PEPCID) 20 mg, Nightly furosemide (Lasix) 20 MG tablet .COMPLEX ibuprofen 200 MG tablet Take by mouth levothyroxine (SYNTHROID, LEVOXYL) 75 mcg, Daily magnesium oxide (MAG-OX) 400 mg, Daily RT meloxicam (Mobic) 15 MG tablet Daily montelukast (Singulair) 10 MG tablet Daily pyridoxine (B-6) 50 mg, Daily RT tamoxifen (Nolvadex) 20 MG chemo tablet Daily VITAMIN D PO Take by mouth vitamin E 400 Units, Daily RT ALLERGIES: Allergies Allergen Reactions Sumatriptan Other Reaction(s): Mental Status Change, Other (See Comments), Unknown, Unknown Reaction, floating feeling Other reaction(s): Mental Status Change, Other (See Comments) Other Reaction(s): Cognitive impairment, Hallucinations SURGICAL HISTORY: Past Surgical History: Procedure Laterality Date ANTERIOR CRUCIATE LIGAMENT REPAIR Left 2004 FOOT SURGERY Right 1998 MASTECTOMY 2021 TOTAL SHOULDER ARTHROPLASTY Right 05/10/2024 REV -JAB REVIEW OF SYMPTOMS: The review of systems, history and current medications list are all reviewed today. OBJECTIVE: Visit Vitals OB Status Unknown Smoking Status Never Physical Exam The incision on the right shoulder is benign and well healed. There is no swelling or erythema. Sheis able to touch her hand to the back of her head. Her passive forward flexion is 120 degrees, abduction is 90 degrees, external rotation with arm abduction is 90 degrees. She can internally rotate to L1. No anterior or posterior instability. Neurovascular status to the upper extremity is unchanged. Results Two views, AP/axillary right shoulder(s) taken today and saved to the permanent medical record are reviewed. Prosthesis is unchanged in position and alignment. No signs of prosthetic wear or loosening. No periprosthetic fractures. ASSESSMENT AND PLAN: I reviewed the history, physical exam, diagnostic studies, and diagnosis with the patient. Assessment & Plan 1. Post-operative status following right reverse total shoulder arthroplasty. She will continue to progress activities as tolerated. A follow-up appointment is scheduled for October 2024, marking the 6-month anniversary of her surgery. X- rays of the right shoulder will be taken at that time. There are no diagnoses linked to this encounter. Ba Romero D.O. Attestation This note was created using voice recognition through K[employer]. documented in this encounterLee's Summit [id number] History of Present illness Narrative* Mel Obando MA - 06/13/2024 2:15 PM EDTAssociated Order(s): L Inj/Asp: L knee Post-Procedure Diagnose(s): Left knee pain, unspecified chronicity L Inj/Asp: L knee on 06/13/2024 2:47 PM Indications: pain Details: 22 G needle Medications: 32 mg triamcinolone acetonide 32 MG * Ba Romero, - 06/13/2024 2:15 PM EDT Images from the original note were not included. @NEELAM@ Malia Matt Cook is a 63 y.o. female who presents for Osteoarthritis of the Left Knee HPI: History of Present Illness The patient is a 63-year-old female who presents with a new issue concerning her left knee. She received a cortisone injection from [facility] on 12/13/2023 and a gel one injection in her knee on 03/16/2024. She is currently recovering from a right reverse total shoulder arthroplasty performed 5 weeks ago on 05/10/2024. She reports that the gel injection has been effective, allowing her to resume walking. However, sheexpresses concern about an upcoming vacation that will involve walking on the beach. Leaving for [place] on Wednesday and is requesting an injection into the knee. History of ACL reconstruction to left knee around 2004. Has been performing her home exercises for the shoulder. SUBJECTIVE: MEDICATIONS: Current Outpatient Medications Medication Instructions albuterol (2.5 MG/3ML) 0.083% nebulizer solution cetirizine (ZyrTEC) 10 MG tablet 1 tablet esomeprazole (NexIUM) [address] capsule Daily famotidine (PEPCID) 20 mg, Nightly furosemide (Lasix) 20 MG tablet .COMPLEX ibuprofen 200 MG tablet Take by mouth levothyroxine (SYNTHROID, LEVOXYL) 75 mcg, Daily magnesium oxide (MAG-OX) 400 mg, Daily RT meloxicam (Mobic) 15 MG tablet Daily montelukast (Singulair) 10 MG tablet Daily pyridoxine (B-6) 50 mg, Daily RT tamoxifen (Nolvadex) 20 MG chemo tablet Daily VITAMIN D PO Take by mouth vitamin E 400 Units, Daily RT ALLERGIES: Allergies Allergen Reactions Sumatriptan Other Reaction(s): Mental Status Change, Other (See Comments), Unknown, Unknown Reaction, floating feeling Other reaction(s): Mental Status Change, Other (See Comments) Other Reaction(s): Cognitive impairment, Hallucinations SURGICAL HISTORY: Past Surgical History: Procedure Laterality Date ANTERIOR CRUCIATE LIGAMENT REPAIR Left 2004 FOOT SURGERY Right 1998 MASTECTOMY 2021 TOTAL SHOULDER ARTHROPLASTY Right 05/10/2024 -NIELS FAMILY HISTORY: Family History Problem Relation Name Age of Onset Hypertension Mother Diabetes Father Ted Heart disease Father Ted Cancer Mother's Sister Krystin Heart disease Mother's Brother Diabetes Brother Gustavo Diabetes Sister Lore SOCIAL HISTORY: Social History Tobacco Use Smoking status: Never Smokeless tobacco: Never Vaping Use Vaping status: Never Used Substance Use Topics Alcohol use: Never Drug use: Never Depression: Low Risk (03/22/2024) [facility] from [facility] Depression PHQ-9 Total Score (Interpretation of Total Score 1-4 = Minimal depression; 5-9 = Mild depression; 10-14 = Moderate depression; 15-19 = Moderately severe depression): 0 REVIEW OF SYMPTOMS: Review of Systems The review of systems, history and current medications list are all reviewed today. OBJECTIVE: Visit Vitals Ht 5' 3.5 Wt 142 lb BMI 24.76 kg/m OB Status Unknown Smoking Status Never BSA 1.7 m Physical Exam Alert and oriented, no acute distress. Mood and affect are appropriate. Ambulating independently. Gait is nonantalgic. No longer wearing arm sling RIGHT SHOULDER Incision benign. No swelling, no erythema LEFT KNEE Well healed surgical incisions. No effusion. No patellar instability. Tender medial joint line. Tender medial patellar facet. No varus or valgus instability. Ortho Exam Results ASSESSMENT AND PLAN: I reviewed the history, physical exam, diagnostic studies, and diagnosis with the patient. Assessment & Plan 1. 5 weeks status post right reverse total shoulder arthroplasty She was instructed on exercises to perform, starting at 6 weeks post-operation. She was shown how to perform the exercises and advised to wait until Wednesday to begin them. She was also provided with apulley to use for these exercises. 2. Advanced posttraumatic osteoarthrosis of the left knee. The patient received a cortisone injection in November and a gel injection in February. She reports that the gel injection worked well. Zilretta was administered during this visit. She was advised to monitor the knee over the next few days to see if there is any improvement before her trip. After informed consent and using sterile technique, the superolateral aspect of the left knee(s) was prepped with alcohol and Betadine. The skin was anesthetized with ethyl chloride and the knee was then injected with 5 mL Zilretta with a 22-gauge 1 1/2 inch needle. The patient tolerated this well.A Band-Aid was applied. The patient was instructed to ice the knee and to watch for any signs of infection including redness, increased pain in the knee, drainage from the injection site, fever, chills, etc. The patient was instructed to call the office if he/she experiences any adverse reaction from the injection. Follow-up Return in 6 weeks for follow up. Xrays of right shoulder will be taken. A total of 30 to 39 minutes was spent on this patient encounter which included chart review, check in, nurse triage, history taking, physical examination, diagnostic study review, patient counseling and discussion, entering information into the patient's medical record, and coordinating patient care. Diagnoses and all orders for this visit: Left knee pain, unspecified chronicity - L Inj/Asp: L knee Ba AvilezOAleyda Attestation This note was created using voice recognition through Kanshu. documented in this encounterLee's Summit [id number] History of Present illness Narrative* Ba Romero DO - 05/23/2024 2:30 PM EDT Images from the original note were not included. @NEELAM@ Malia Matt Cook is a 63 y.o. female who presents for Post-op Visit of the Right Shoulder (REV TSA05/10/24) HPI: History of Present Illness The patient is 13 days status post right reverse total shoulder arthroplasty. Date of surgery was 05/10/2024. She has been managing her pain with Tylenol, as Celebrex caused her to experience nausea. She has also been taking ibuprofen once or twice daily. She finds that applying ice to the area provides somerelief. SUBJECTIVE: MEDICATIONS: Current Outpatient Medications Medication Instructions albuterol (2.5 MG/3ML) 0.083% nebulizer solution cetirizine (ZyrTEC) 10 MG tablet 1 tablet esomeprazole (NexIUM) [address] capsule Daily famotidine (PEPCID) 20 mg, Oral, Nightly furosemide (Lasix) 20 MG tablet .COMPLEX ibuprofen 200 MG tablet Oral levothyroxine (SYNTHROID, LEVOXYL) 75 mcg, Oral, Daily magnesium oxide (MAG-OX) 400 mg, Oral, Daily RT meloxicam (Mobic) 15 MG tablet Daily montelukast (Singulair) 10 MG tablet Daily pyridoxine (B-6) 50 mg, Oral, Daily RT tamoxifen (Nolvadex) 20 MG chemo tablet Daily VITAMIN D PO Oral vitamin E 400 Units, Oral, Daily RT ALLERGIES: Allergies Allergen Reactions Sumatriptan Other Reaction(s): Mental Status Change, Other (See Comments), Unknown, Unknown Reaction, floating feeling Other reaction(s): Mental Status Change, Other (See Comments) SURGICAL HISTORY: Past Surgical History: Procedure Laterality Date ANTERIOR CRUCIATE LIGAMENT REPAIR Left 2004 FOOT SURGERY Right 1998 MASTECTOMY 2021 TOTAL SHOULDER ARTHROPLASTY Right 05/10/2024 REV -JAAlejandro REVIEW OF SYMPTOMS: The review of systems, history and current medications list are all reviewed today. OBJECTIVE: Visit Vitals Ht 5' 3.5 Wt 142 lb LMP (LMP Unknown) BMI 24.76 kg/m OB Status Unknown Smoking Status Never BSA 1.7 m Physical Exam RIGHT SHOULDER Incision benign. No erythema. No blisters. Elbow and wrist flexion/extension intact. Makes fist. Extends all fingers. Hand well perfused Results Two views, AP/axillary right shoulder(s) taken today and saved to the permanent medical record are reviewed. Prosthesis is unchanged in position and alignment. No signs of prosthetic wear or loosening. No periprosthetic fractures. ASSESSMENT AND PLAN: I reviewed the history, physical exam, diagnostic studies, and diagnosis with the patient. Assessment & Plan 1. Post right reverse total shoulder arthroplasty status. She was advised to resume tamoxifen. She can shower normally, gently cleaning the incision with soap and water. Pendulum exercises were recommended, to be performed 10 times in each direction two times daily. Start phase two exercises 06/04/2024. She was instructed to wear the sling when outside thehouse and to remove it when at home. Ice application was suggested for pain relief. An x-ray will be taken in 4 weeks, at which point additional exercises will be introduced. Follow-up Return in 4 weeks for follow up. Diagnoses and all orders for this visit: Arthritis of right shoulder region - XR shoulder 2+ views right Ba Brown D.O. Attestation This note was created using voice recognition through Kanshu. documented in this encounterLee's Summit [id number] NoteProgress Note-Physician Patient: MALIA COOK Age: 63 years Sex: Female : 1960 Associated Diagnoses: None Author: MD Dow Ahmad F Postoperative Information Postoperative disposition: Postoperative disposition: To PACU. Optimetrix number: Optimetrix number [id number]. Anesthetic utilized: General. Health Status Allergies: Allergic Reactions (Selected) Severity Not Documented Imitrex- Cognitive impairment and hallucinations. Physical Examination VS/Measurements Pain Assessment: Controlled. General: Awake, Alert, Appropriate. Respiratory: Adequate air exchange. Cardiovascular: Stable, Normal peripheral perfusion. Neurological: Normal sensory function, Normal motor function. Assessment Anesthetic outcome No anesthetic complications noted. Adequate pain relief. able to void without difficulty, able to ambulate with assist, tolerating PO intake, no N/V. Review / Management Condition: Stable. Plan Transfer/Discharge: Transfer/Discharge Discharge when meets criteria ( To home ).[facility] HospitalComment on above:Result Comment: Electronically Signed By: MD Dow Ahmad F\.br\Date and Time Signed: 05/16/24 08:39 EDT 05-16-2024 NoteProgress Note-Physician Patient: MALIA COOK Age: 63 years Sex: Female : 1960 Associated Diagnoses: None Author: MD Dow Ahmad F Preoperative Information Time patient last ate or drank:=== (npo 8 hours) Anesthesia history: Patient history: No prior anesthesia problems. Re-evaluation prior to induction: Completed, Initial evaluation reviewed. Review of Systems Respiratory: No shortness of breath. Cardiovascular: No chest pain. Hematology/Lymphatics: No bruising tendency, No bleeding tendency. Health Status Allergies: Allergic Reactions (All) Severity Not Documented Imitrex- Cognitive impairment and hallucinations. Current medications: (Selected) Prescriptions Prescribed CeleBREX 100 mg Cap: 100 mg = 1 cap(s), Oral, BID, PRN for pain, start after finishing ketorolac, #60 cap(s), Refills(s) 0, Pharmacy: [facility], 162, cm, 04/25/24 13:55:00 EDT, Height/Length Dosing, 63.9, kg, 04/25/24 13:55:00 EDT, Weight Dosing Colace 100 mg Cap: 100 mg = 1 cap(s), Oral, BID, PRN for constipation, # 20 cap(s), Refills(s) 0, Pharmacy: [facility], 162, cm, 04/25/24 13:55:00 EDT, Height/Length Dosing, 63.9, kg,04/25/24 13:55:00 EDT, Weight Dosing Keflex 500 mg Cap: 500 mg = 1 cap(s), Oral, q8hr, X 7 day(s), # 21 cap(s), Refills(s) 0, Pharmacy: [facility], 162, cm, 04/25/24 13:55:00 EDT, Height/Length Dosing, 63.9, kg, 04/25/2413:55:00 EDT, Weight Dosing acetaminophen 500 mg Tab: 500 mg = 1 tab(s), Oral, q4hr, PRN as needed for pain, # 40 tab(s), Refills(s) 0, Pharmacy: [facility], 162, cm, 04/25/24 13:55:00 EDT, Height/Length Dosing,63.9, kg, 04/25/24 13:55:00 EDT, Weight Dosing oxyCODONE 5 mg Tab: See Instructions, PRN for pain, 1-2 tab(s) Oral q4hr, # 40 tab(s), Refills(s) 0, Pharmacy: [facility], 162, cm, 04/25/24 13:55:00 EDT, Height/Length Dosing, 63.9, kg, 04/25/24 13:55:00 EDT, Weight Dosing Documented Medications Documented Nexium 20 mg Cap-DR: 20 mg = 1 cap(s), Oral, Daily, Control of stomach acid furosemide 20 mg Tab: 20 mg = 1 tab(s), Oral, Daily, PRN edema levothyroxine 75 mcg (0.075 mg) Tab: 75 mcg = 1 tab(s), Oral, Daily, Thyroid montelukast 10 mg Tab: 10 mg = 1 tab(s), Oral, Daily, Asthma Problem list: All Problems Hypothyroidism / SNOMED CT 49886384 / Confirmed Active asthma / SNOMED CT 019758832 / Confirmed Chronic GERD / SNOMED CT 612542266 / Confirmed Edema of B/L lower leg / SNOMED CT 500521338 / Confirmed Resolved: Breast cancer- RESOLVED / SNOMED CT 968819667 Histories Past Medical History: No active or resolved past medical history items have been selected or recorded. Family History: No family history items have been selected or recorded. Procedure history: Reverse total right shoulder replacement ([id number]) on 05/10/2024 at 63 Years. B/L LASIK (4266925192) in 2004 at 44 Years. Sling procedure of bladder neck (556111665) in 2003 at 43 Years. Repair of shattered R heel (415016218) in 1998 at 38 Years. repair of L broken foot (305757118) in 1998 at 38 Years. Right thoracic outlet syndrome (9280699529) in 1984 at 24 Years. Carpal tunnel release (488178203) in 1979 at 19 Years. Repair of ulnar digital nerve ([id number]) in 1979 at 19 Years. Repair of anterior cruciate ligament of knee joint LEFT (583355918) in 1979 at 19 Years. Abdominal hysterectomy (430029605). Social History Social & Psychosocial Habits Alcohol 05/10/2024 Risk Assessment: Denies Alcohol Use Substance Abuse 05/10/2024 Risk Assessment: Denies Substance Abuse Tobacco 05/10/2024 Risk Assessment: Denies Tobacco Use . Physical Examination Please see preop flow sheet Airway: Mallampati classification: II (soft palate, fauces, uvula visible). Respiratory: Lungs are clear to auscultation. Cardiovascular: Normal rate, Regular rhythm. Neurologic: Alert. Review / Management Results review Interpretation of Outside Results Chest x-ray results Radiology results ECG interpretation Condition Plan [place] [employer] Anesthesiologists (ASA) physical status classification: Class III. Anesthetic Preoperative Plan Anesthesia: General. . Anesthetic plan, risks, benefits, and alternatives discussed with the patient and/or family. Risks discussed: nausea, vomiting, headache, sore throat, dental injury, serious complications. Patient verbalized understanding. Communication: face to face with patient 5 minutes.[facility] HospitalComment on above: Result Comment: Electronically Signed By: MD Victor M, Shukri Thompson\.br\Date and Time Signed: 05/16/24 08:36 [id number] Hospital Discharge instructions Patient Education 05/10/2024 14:20:53 Shoulder Cryocuff Patient Instructions - FT (CUSTOM) 05/10/2024 14:20:43 How to Use an Incentive Spirometer How to Use an Incentive Spirometer An incentive spirometer is a tool that measures how well you are filling your lungs with each breath. Learning to take long, deep breaths using this tool can help you keep your lungs clear and active. This may help to reverse or lessen your chance of developing breathing (pulmonary) problems, especially infection. You may be asked to use a spirometer: After a surgery. If you have a lung problem or a history of smoking. After a long period of time when you have been unable to move or be active. If the spirometer includes an indicator to show the highest number that you have reached, your health care provider or respiratory therapist will help you set a goal. Keep a log of your progress as told by your health care provider. What are the risks? Breathing too quickly may cause dizziness or cause you to pass out. Take your time so you do not get dizzy or light-headed. If you are in pain, you may need to take pain medicine before doing incentive spirometry. It is harder to take a deep breath if you are having pain. How to use your incentive spirometer 1.Sit up on the edge of your bed or on a chair. 2.Hold the incentive spirometer so that it is in an upright position. 3.Before you use the spirometer, breathe out normally. 4.Place the mouthpiece in your mouth. Make sure your lips are closed tightly around it. 5.Breathe in slowly and as deeply as you can through your mouth, causing the piston or the ball to rise toward the top of the chamber. 6.Hold your breath for 3 5 seconds, or for as long as possible. If the spirometer includes a middle school football coach indicator, use this to guide you in breathing. Slow down your breathing if the indicator goes above the marked areas. 7.Remove the mouthpiece from your mouth and breathe out normally. The piston or ball will return tothe bottom of the chamber. 8.Rest for a few seconds, then repeat the steps 10 or more times. Take your time and take a few normal breaths between deep breaths so that you do not get dizzy or light-headed. Do this every 1 2 hours when you are awake. 9.If the spirometer includes a goal marker to show the highest number you have reached (best effort), use this as a goal to work toward during each repetition. 10.After each set of 10 deep breaths, cough a few times. This will help to make sure that your lungs are clear. If you have an incision on your chest or abdomen from surgery, place a pillow or a rolled-up towel firmly against the incision when you cough. This can help to reduce pain while taking deep breaths and coughing. General tips When you are able to get out of bed: ?Walk around often. ?Continue to take deep breaths and cough in order to clear your lungs. Keep using the incentive spirometer until your health care provider says it is okay to stop using it. If you have been in the hospital, you may be told to keep using the spirometer at home. Contact a health care provider if: You are having difficulty using the spirometer. You have trouble using the spirometer as often as instructed. Your pain medicine is not giving enough relief for you to use the spirometer as told. You have a fever. Get help right away if: You develop shortness of breath. You develop a cough with bloody mucus from the lungs. You have fluid or blood coming from an incision site after you cough. Summary An incentive spirometer is a tool that can help you learn to take long, deep breaths to keep your lungs clear and active. You may be asked to use a spirometer after a surgery, if you have a lung problem or a history of smoking, or if you have been inactive for a long period of time. Use your incentive spirometer as instructed every 1 2 hours while you are awake. If you have an incision on your chest or abdomen, place a pillow or a rolled-up towel firmly against your incision when you cough. This will help to reduce pain. Get help right away if you have shortness of breath, you cough up bloody mucus, or blood comes fromyour incision when you cough. This information is not intended to replace advice given to you by your health care provider. Make sure you discuss any questions you have with your health care provider. Document Revised: 11/04/2020 Document Reviewed: 11/04/2020 [employer] Patient Education 2023 [employer]. 05/10/2024 14:20:41 Post Op Patient Instructions - FT (CUSTOM) 05/10/2024 10:36:14 Kenia Romero - Shoulder Replacement (Custom) [place], [place] [facility] DISCHARGE INSTRUCTIONS: SHOULDER REPLACEMENT MEDICATIONS You will be given a prescription for pain medication. This should be taken with food as needed. This may cause stomach upset, dizziness, and possible constipation. Please notify the office if you have any medication allergies to this type of medication or if any problems develop with the medication. DRESSING CHANGES Leave your bandage in place until your follow up visit. The bandage is waterproof, so you may shower it home. Any increase in pain, temperature over 101 degrees, redness, or drainage should be reported to the office prior to your first office visit. ACTIVITY You may continue to progress activity as comfortably tolerated with your opposite arm. You may begin to use your elbow, wrist, and hand as directed in physical therapy. You should only remove your sling for bathing and to perform range of motion exercises for the hand, wrist, and elbow. Do not actively move your shoulder Continue to ice the shoulder several times per day until follow up. ANESTHESIA PRECAUTIONS You should not operate a vehicle, automobile, bicycle or motorcycle, machinery, or power tools, make any important decisions, or drink alcohol for 24 hours. It may be beneficial to have a responsible adult remain with you for your first 24 hours after surgery. You may be drowsy and light-headed. DRIVING Driving is legal, however, if you are involved in an accident, you must be able to prove that you maintained full control of your vehicle. For this reason, it is advised that you do not drive until your strength returns. PROBLEMS You should notify the office for any persistent or heavy bleeding, temperature above 101, redness, swelling, or drainage from the operative site, severe pain at the operative site, or the developmentof persistent vomiting. Ba Bocanegra. [facility] [address] [place] [id number] Reviewed: Follow Up Care 03/16/2024 16:36:11 With:Ba Romero DO, ORT Address: [address] [place] [id number]:05/23/2024 14:30:00 [facility] 09-11-2024 NotePatient Education - Text Pulmonary Medicine How to Use an Incentive Spirometer An incentive spirometer is a tool that measures how well you are filling your lungs with each breath. Learning to take long, deep breaths using this tool can help you keep your lungs clear and active. This may help to reverse or lessen your chance of developing breathing (pulmonary) problems, especially infection. You may be asked to use a spirometer: ? After a surgery. ? If you have a lung problem or a history of smoking. ? After a long period of time when you have been unable to move or be active. If the spirometer includes an indicator to show the highest number that you have reached, your health care provider or respiratory therapist will help you set a goal. Keep a log of your progress as told by your health care provider. What are the risks? ? Breathing too quickly may cause dizziness or cause you to pass out. Take your time so you do not get dizzy or light-headed. ? If you are in pain, you may need to take pain medicine before doing incentive spirometry. It is harder to take a deep breath if you are having pain. How to use your incentive spirometer 1. Sit up on the edge of your bed or on a chair. 2. Hold the incentive spirometer so that it is in an upright position. 3. Before you use the spirometer, breathe out normally. 4. Place the mouthpiece in your mouth. Make sure your lips are closed tightly around it. 5. Breathe in slowly and as deeply as you can through your mouth, causing the piston or the ball torise toward the top of the chamber. 6. Hold your breath for 3?5 seconds, or for as long as possible. ? If the spirometer includes a middle school football coach indicator, use this to guide you in breathing. Slow down your breathing if the indicator goes above the marked areas. 7. Remove the mouthpiece from your mouth and breathe out normally. The piston or ball will return to the bottom of the chamber. 8. Rest for a few seconds, then repeat the steps 10 or more times. ? Take your time and take a few normal breaths between deep breaths so that you do not get dizzy orlight-headed. ? Do this every 1?2 hours when you are awake. 9. If the spirometer includes a goal marker to show the highest number you have reached (best effort), use this as a goal to work toward during each repetition. 10. After each set of 10 deep breaths, cough a few times. This will help to make sure that your lungs are clear. ? If you have an incision on your chest or abdomen from surgery, place a pillow or a rolled-up towel firmly against the incision when you cough. This can help to reduce pain while taking deep breathsand coughing. General tips ? When you are able to get out of bed: ? Walk around often. ? Continue to take deep breaths and cough in order to clear your lungs. ? Keep using the incentive spirometer until your health care provider says it is okay to stop usingit. If you have been in the hospital, you may be told to keep using the spirometer at home. Contact a health care provider if: ? You are having difficulty using the spirometer. ? You have trouble using the spirometer as often as instructed. ? Your pain medicine is not giving enough relief for you to use the spirometer as told. ? You have a fever. Get help right away if: ? You develop shortness of breath. ? You develop a cough with bloody mucus from the lungs. ? You have fluid or blood coming from an incision site after you cough. Summary ? An incentive spirometer is a tool that can help you learn to take long, deep breaths to keep yourlungs clear and active. ? You may be asked to use a spirometer after a surgery, if you have a lung problem or a history of smoking, or if you have been inactive for a long period of time. ? Use your incentive spirometer as instructed every 1?2 hours while you are awake. ? If you have an incision on your chest or abdomen, place a pillow or a rolled- up towel firmly against your incision when you cough. This will help to reduce pain. ? Get help right away if you have shortness of breath, you cough up bloody mucus, or blood comes from your incision when you cough. This information is not intended to replace advice given to you by your health care provider. Make sure you discuss any questions you have with your health care provider. Document Revised: 11/04/2020 Document Reviewed: 11/04/2020 [employer] Patient Education ? 2023 [employer]. [place], [place] [facility] DISCHARGE INSTRUCTIONS: SHOULDER REPLACEMENT MEDICATIONS You will be given a prescription for pain medication. This should be taken with food as needed. This may cause stomach upset, dizziness, and possible constipation. Please notify the office if you have any medication allergies to thi (more content not included)...[facility]08-27-2024 History of Present illness Narrative* Ba Romero, DO - 04/25/2024 9:15 AM EDT Images from the original note were not included. @ENCDATE@ [facility] Matt Tito is a 63 y.o. female who presents for Follow-up of the Right Shoulder (MRI [facility] 03/08/24) HPI: History of Present Illness The patient is a 63-year-old [id number] female here to discuss moving forward with surgery on her right shoulder. She is accompanied by her . She inquires about the duration of sling usage post-surgery and expresses a desire to return home on the same day as her surgery. Additionally, she mentions a planned vacation to [place] from 06/17/2024 to 06/24/2024. She reports that the cortisone injection administered to her left knee on 03/16/2024 has been beneficial. Her mobility has improved, allowing her to walk normally most of the time and even use the treadmill. SUBJECTIVE: MEDICATIONS: Current Outpatient Medications Medication Instructions albuterol (2.5 MG/3ML) 0.083% nebulizer solution cetirizine (ZyrTEC) 10 MG tablet 1 tablet esomeprazole (NexIUM) [address] capsule Daily famotidine (PEPCID) 20 mg, Oral, Nightly furosemide (Lasix) 20 MG tablet .COMPLEX ibuprofen 200 MG tablet Oral levothyroxine (SYNTHROID, LEVOXYL) 75 mcg, Oral, Daily magnesium oxide (MAG-OX) 400 mg, Oral, Daily RT meloxicam (Mobic) 15 MG tablet Daily montelukast (Singulair) 10 MG tablet Daily pyridoxine (B-6) 50 mg, Oral, Daily RT tamoxifen (Nolvadex) 20 MG chemo tablet Daily VITAMIN D PO Oral vitamin E 400 Units, Oral, Daily RT ALLERGIES: Allergies Allergen Reactions Sumatriptan Other Reaction(s): Mental Status Change, Other (See Comments), Unknown, Unknown Reaction, floating feeling Other reaction(s): Mental Status Change, Other (See Comments) SURGICAL HISTORY: Past Surgical History: Procedure Laterality Date ANTERIOR CRUCIATE LIGAMENT REPAIR Left 2004 FOOT SURGERY Right 1998 MASTECTOMY 2021 FAMILY HISTORY: Family History Problem Relation Name Age of Onset Hypertension Mother Diabetes Father Ted Heart disease Father Ted Cancer Mother's Sister Krystin Heart disease Mother's Brother Diabetes Brother Gustavo Diabetes Sister Lore SOCIAL HISTORY: Social History Tobacco Use Smoking status: Never Smokeless tobacco: Never Vaping Use Vaping status: Never Used Substance Use Topics Alcohol use: Never Drug use: Never Depression: Low Risk (03/22/2024) Re[facility] from [facility] Depression PHQ-9 Total Score (Interpretation of Total Score 1-4 = Minimal depression; 5-9 = Mild depression; 10-14 = Moderate depression; 15-19 = Moderately severe depression): 0 REVIEW OF SYMPTOMS: Review of Systems The review of systems, history and current medications list are all reviewed today. OBJECTIVE: Visit Vitals Ht 5' 3.5 Wt 142 lb LMP (LMP Unknown) BMI 24.76 kg/m OB Status Unknown Smoking Status Never BSA 1.7 m Physical Exam Alert and oriented, no acute distress. Mood and affect are appropriate. Ambulating independently. Gait is nonantalgic. Patient is wearing flip flop sandals. Injection site of the left knee is benign. RIGHT SHOULDER Right shoulder demonstrates active elevation to about 110 degrees. Abduction is about 80 degrees. Internal rotation reaches about L2. Passive elevation is about 110 to 120 degrees. Abduction is about90 degrees. External rotation reaches 70 degrees. Negative Hornblower. Weakness with forward flexion. Good strength with external rotation. Weakness with belly press. LEFT SHOULDER The skin is warm, dry, and intact. There is no swelling, atrophy, or deformity. The patient can raise the arm overhead. Full forward elevation, abduction, internal and external rotation. No weakness with internal and external rotation, resisted supination, or forward flexion. Negative [place]'s. Negative Neer/Belcher impingement. No tenderness over the AC joint. Negative cross-arm adduction. Negative Speed's and Yergason's. HEENT The skull is normocephalic. There is no sign of trauma to the head or neck. Hearing is intact for conversational tones. Eye exam reveals conjugate gaze adequate for walking and transfers. CARDIAC The heart is regular rate and rhythm. RESPIRATORY Chest excursion is symmetric and unlabored with lungs clear. ABDOMEN Soft and non-distended. OSTEOPATHIC AND STRUCTURAL EXAM There is no gross evidence of clinically significant kyphosis, or lordosis, or significant leg length discrepancy in a sitting and standing position. Ortho Exam Results MRI of the right shoulder [facility] 03/08/2024 report and images reviewed. Avascular necrosis of humeral head with collapse in the articular cartilage. Partial thickness tearing of the supraspinatus with inflammation in the subacromial space. Tearing of superior labrum. No cuff atrophy. ASSESSMENT AND PLAN: I reviewed the history, physical exam, diagnostic studies, and diagnosis with the patient. Assessment & Plan 1. Avascular necrosis with glenohumeral osteoarthrosis, right shoulder We will proceed with right reverse total shoulder arthroplasty. I explained the difference between anatomic shoulder arthroplasty and reverse shoulder arthroplastyand utilized the saw bones model and/or illustration during the discussion. I provided the patient information from the [employer] web site about this procedure. We will utilize the Qriously shoulder arthroplasty platform and obtain a CT scan of the shoulder to assist with preoperative planning and intraoperative instrumentation. The procedure will be performed as an outpatient procedure. We will utilize tranexamic acid preoperative and intraoperatively to help minimize blood loss. The procedure, including the incision location and post-operative care, was thoroughly explained. She was informed about the waterproof bandage, which allows her to shower post-surgery. The use of anarm sling and ice machine was discussed, with instructions to remove the sling during showers and for elbow, hand, and wrist movements. She was advised to rest her arm without the sling when at home.Post-operative exercises will be provided during her first follow- up visit. The sling should be worn for 4 to 6 weeks, especially in public, but can be removed at home. A follow-up appointment will be scheduled before her vacation to provide additional exercises. She was also advised to bring the sl ing on her trip for use as needed. I reviewed the risk, benefits, complications, alternatives, and reasonable expectations. These risks include, but are not limited to, the risks of receiving an anesthetic, the risk of infection, the risk of neurovascular injury that could result in permanent disability, the risk of deep vein thrombosis that could result in potentially fatal pulmonary embolism. Any potential complication could require further surgical intervention. The patient acknowledges these risks and electively signed the consent form. At no time were any guarantees implied or stated. We will schedule the procedure at a mutually convenient time. Surgery will be performed under a general anesthetic as well as a regional anesthetic nerve block. I am requesting the nerve block to assist with intraoperative and postoperative pain control. The patient reported improvement in her left knee pain following a cortisone injection administeredon 03/16/2024. If her knee symptoms recur before her vacation, another cortisone injection can be administered. A total of 30 to 39 minutes was spent on this patient encounter which included chart review, check in, nurse triage, history taking, physical examination, diagnostic study review, patient counseling and discussion, entering information into the patient's medical record, and coordinating patient care. There are no diagnoses linked to this encounter. Ba Romero D.O. Attestation This note was created using voice recognition through [employer]. documented in this encounterLee's Summit [id number] History of Present illness Narrative* Stuart Smallwood MD - 03/22/2024 4:00 PM EDT FOLLOW UP NOTE FOR [facility] BREAST SURGICAL ONCOLOGY CLINIC: DR. SMALLWOOD: HISTORY OF PRESENT ILLNESS The patient is known to me. I last saw her on 01/27/2023. I first met her on 02/04/2022. The patient is currently a 63-year-old white female. The patient had a body mass index/BMI of approximately 24.8 kg/m (5 foot, 3.5 inches tall, and weighed approximately 142 pounds), as of 02/24/2022. The patient lives in [place], [place]. ################################################################################ ############################################ The patient has a personal history of a RIGHT breast cancer process (pT2 [4.2 cm], pN1 [1/3 right axillary lymph nodes positive for macrometastatic carcinoma measuring 3 mm, without extranodal extension], 95% ER positive, 95% KY positive, HER2 negative, intermediate grade invasive mammary carcinomawith lobular features of the 5:00 position of the right breast [3.2 cm FRN]; Oncotype DX recurrencescore 23), which was initially diagnosed in late December 2021, and for which the patient underwent a right total mastectomy procedure and right axillary sentinel lymph node mapping and biopsy procedure (by me) and placement of a right-sided tissue transportation maintenance worker (by Dr. Sharath Alvarado of [facility] Plastic surgery) at [facility] on 04/10/2022. The patient has a personal history of NEGATIVE comprehensive genetic testing for any form of hereditary breast cancer syndrome, as based upon [employer] 77- gene CancerNext-Expanded+RNA panel testfrom blood collected on 03/04/2022. 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 ################################################################################ ############################################ On 02/21/2021, the patient underwent a 12 lead EKG through the [facility] in [place], [place].This showed normal sinus rhythm with a ventricular rate of 69 beats per minute. They stated: Impression: SINUS RHYTHM WITH SHORT KY. NONSPECIFIC T WAVE ABNORMALITY. ABNORMAL ECG. . On 04/02/2021, the patient underwent Cardiopulmonary Exercise Test (CPET) at the [facility], in [place], [place]. They stated: Summary: In summary, in [...] right breast [3.2 cm FRN] at [facility] in [place], [place]. The final pathology from 01/20/2022 showed low-grade invasive carcinoma with mixed ductal and lobular features, measuring 1.9 cm in greatest dimension, which was found to be >90% ER positive, 80-90% KY positive, and HER2/lizzette negative. On 04/01/2022, the patient's outside pathology was reviewed by Dr. Spears of [facility] breast pathology. They stated: Pathologic Diagnosis: Outside Slides: [id number] (01/20/22): A. Right breast spiculated mass at [...] in an addendum. Dr. Adams has reviewed real estate representative slides. at 1735. . On 02/18/2022, the patient's outside breast imaging was reviewed by Dr. Biju Blum of [facility] breast Radiology. They stated: EXAM: BREAST IMAGING [...] on the patient. On 02/24/2022, the patient initially presented to my [facility] Surgical Oncology [...] OR DRUG EFFECTS. Confirmed by Jesusita Hurt ([id number]) on 02/26/2022 5:37:03 AM. . On 02/24/2022, [...] patient be seen by 1 of the [facility] Plastic Surgeons. We discussed the importance of having the patient be seen by 1 of the [facility] breast medical oncologist. We discussed the importance of having the patient be seen by 1 of the [facility] breast radiation oncologist. We discussed obtaining repeat [...] having the patient be evaluated by the [facility] clinical cancer genetics service to discuss comprehensive [...] patient contact information for our nurse practitioner, Prakash Santiago, and have instructed the patient to remain in contact with our nurse practitioner, Prakash Santiago, through [employer], for any future upcoming questions or concerns that they have regarding their management or follow-up in our [facility] breast Surgical Oncology Clinic. . On 02/24/2022, the patient underwent right breast ultrasound and right axillary ultrasound at [facility]. This was read by Dr. Wei Robertson of [facility] breast radiology. They stated: EXAM: US BREAST LIMITED UNILATERAL RIGHT, US AXILLA FOR MAMMOGRAPHY RIGHT, 02/24/2022 10:44 AM (accession [id number]), 02/24/2022 10:45 AM (accession [id number]). CLINICAL INDICATIONS: New right breast malignancy 5 [...] patient underwent a bilateral breast MRI at [facility]. This was read by Dr. Wei Robertson of [facility] breast radiology. They stated: FINDINGS: Amount of [...] 03/04/2022, the patient was seen by Dr. Sharath Alvarado of [facility] Plastic surgery. They stated: Plan: I discussed that the patient would be most suited to 2-stage implant-based reconstruction. After discussion, the patient stated that they wish to proceed with: right mastectomy and immediate breast reconstruction with tissue transportation maintenance worker. We will schedule/coordinate surgery and the patient will return at their preoperative appointment. . On 03/18/2022, the patient underwent a nuclear medicine cardiac stress test at [facility]. They stated: Interpretation Summary: Lexiscan Stress myocardial [...] was seen by Dr. Deepti Gomez of [facility] breast Radiation Oncology. On 04/01/2022, the genetic counselor, Silverio Romero issued the following telephone encounter note inthe patient's [facility] electronic medical record chart. They stated: We met with initially in the Clinical Cancer Genetics Program on 03/04/2022 for genetic risk assessment and counseling. We spoke by telephone on 03/13/2022 to discuss the negative results of her STAT genetic testing. Tenzin spoke by telephone on 04/01/22 for follow-up genetic counseling to discuss the results of hergenetic testing. Genetic counseling graduate civil engineer, Halle Dowell, observed this encounter. Ms. Cook at another appointment when I called to discuss results. Should she have any questions about the results she can contact me directly at [phone]. RESULT AND INTERPRETATION: Based upon s personal and family history, she underwent multi-gene panel testing for variants in genes reported to be associated with hereditary cancer predisposition. 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 This 77-gene panel test is called Clear[employer]+RNA and was performed by [employer]. The genes that were tested are listed below: AIP, ALK, APC, ELEUTERIO, AXIN2, BAP1, BARD1, BLM, BMPR1A, BRCA1, BRCA2, BRIP1, CDC73, CDH1, CDK4, CDKN1B, CDKN2A, CHEK2, CTNNA1, DICER1, EGFR, EGLN1, EPCAM,FANCC, FH, FLCN, GALNT12, GREM1, HOXB13, KIF1B, KIT, LZTR1, MAX, MEN1, MET, MITF, MLH1, MSH2, MSH3,MSH6, MUTYH, NBN, NF1, NF2, NTHL1, PALB2, PDGFRA, PHOX2B, PMS2, POLD1, POLE, POT1, WDSNJ8C, PTCH1, PTEN, RAD51C, RAD51D, RB1, RECQL, RET, SDHA, SDHAF2, SDHB, SDHC, SDHD, SMAD4, SMARCA4, SMARCB1, SMARC E1, STK11, SUFU, XHWD456, TP53, TSC1, TSC2, VHL and XRCC2. Refer [...] sentinellymph node mapping and biopsy procedure (by nh) and placement of a right-sided tissue transportation maintenance worker (by Dr. Sharath Alvarado of [facility] Plastic surgery). The final pathology from 04/10/[address] Antelmo Adams of [facility] breast pathology. This showed: (1) The right [...] or overall survival (Rand V, Inocente BF, Elisa S, Jessenia G, Alicia A, Karin P, Radha P, Ghazala C, Marilyn M, Neva M, Gentilini O, [place] MG, Mazzarol G, [place] S, Maddy JR, Anabelle J, Jose H, Recalcati A, Tonia D, Rosalio M, Willian M, Natan KN, Don MM, Maribel A, Toshia , Azeb RD, Karin U; International Breast Cancer Study Group Trial investigators. Axillary dissection versus no axillary dissection in patients with sentinel-node micrometastases (IBCSG ): a phase 3 randomised controlled trial. Lancet Oncol 2013; 14(4):297-305 [doi: 10.1016/N3770-6777(84)13640-4]). Therefore, as based upon the prior The International BreastCancer Study Group (IBCSG) - Clinical Trial Study, I would consider extrapolating [...] continue her ongoing postoperative follow-up with Dr. Sharath Alvarado of [facility] Plastic surgery for management of her right-sided surgical MOLLY drains. We will initiate the process of sending off Oncotype DX recurrence score testing on the patient's right breast cancer process. We will subsequently have the patient be evaluated by 1 of the [facility] breast medical oncologist to discuss postoperative adjuvant [...] patient contact information for our nurse practitioner, Prakash Santiago, and have instructed the patient to remain in contact with our nurse practitioner, Prakash Santiago, through [employer], for any future upcoming questions or concerns that they have regarding their management or follow-up in our [facility] breast Surgical Oncology Clinic. . On 06/29/2022, the patient underwent exchange of her right-sided tissue transportation maintenance worker for permanent right-sided silicone gel implant, and excision of right-sided cone deformity correction, and contralateral left reduction mastopexy procedure by Dr. Sharath Alvarado of [facility] Plastic surgery. The patient received postoperative adjuvant postmastectomy radiation therapy to her right mastectomy/implant reconstruction site, which she completed in early August 2022. The patient was placed on postoperative adjuvant antiestrogen therapy with aromatase inhibitor, which she began in August 2022. [facility] [facility] breast [facility]ology clinic at this time. Complete review of systems is otherwise negative for any new findings aside from anything else which was mentioned elsewhere within the current clinic note. PHYSICAL EXAMINATION Vital Signs: BP 143/73 (BP Position: Sitting) Pulse 88 Temp 97.7 F (36.5 C) Wt 63.1 kg (139 lb 1.6 oz) BMI 24.64 kg/m Smoking Status Never ,Body mass index is 24.64 kg/m . Our Nursing Staff was present for the evaluation (Clarissa Hamm and Prakash Santiago). The patient came to the clinic exam room with her . The patient's right mastectomy/implant reconstruction site looks fine. The patient has STABLE chronic mild skin hyperpigmentation and STABLE chronic mild skin thickening and STABLE chronic mild soft tissue thickening of the tissues of her right mastectomy/implant reconstruction site from her prior right-sided radiation therapy. The patient has no evidence of recurrent disease within the skin or within the soft tissues of the patient's right mastectomy/implant reconstruction site. The patient has no discrete, concerning, palpable left breast masses within her reduced left breastprofile. The patient has no overtly obvious discrete palpable cervical, supraclavicular, or axillary adenopathy bilaterally. The patient has decreased range of motion of her right arm at her right shoulder region. The patient has no significant clinical findings in the remainder of her clinical examination of her chest region or of her clinical examination of her abdominal region. BREAST IMAGING Left breast diagnostic 3D digital mammogram was classified as BI-RADS category 2/benign findings/stable by the [facility] breast radiology staff. Scattered areas of fibroglandular tissue were seen within the left breast profile Stable postsurgical changes were seen within the [...] without extranodal extension], 95% ER positive, 95% KY positive, HER2 negative, intermediate grade invasive mammary carcinomawith lobular features of the 5:00 position of the right breast [3.2 cm FRN]; Oncotype DX recurrencescore 23), which was initially diagnosed in late December 2021, and for which the patient underwent a right total mastectomy procedure and right axillary sentinel lymph node mapping and biopsy procedure (by nh) and placement of a right-sided tissue transportation maintenance worker (by Dr. Sharath Alvarado of [facility] Plastic surgery) at [facility] on 04/10/2022. The patient has a personal history of NEGATIVE comprehensive genetic testing for any form of hereditary breast cancer syndrome, as based upon GoBeMe 77- gene CancerNext-Expanded+RNA panel testfrom blood collected on 03/04/2022. 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 ################################################################################ ############################################ The patient has stable clinical exam of her right mastectomy/implant reconstruction site and her contralateral left breast. Left breast diagnostic 3D digital mammogram was classified as BI-RADS category 2/benign findings/stable. We will continue to follow the patient annually. Therefore, we will next see the patient back on 03/28/2025, for repeat clinical exam and left breast digital mammogram. The patient should see us back sooner for new breast related problems or new breast related concerns. Otherwise, we will see her back on 03/28/2025, as is outlined above. I have discussed all of these issues with the patient. I have answered all of her questions. The patient appears to understand what has been discussed, and she reports that she will follow-through accordingly, as is outlined above. We have given the patient contact information for our nurse practitioner, Prakash Santiago, andhave instructed the patient to remain in contact with our nurse practitioner, Prakash Santiago,through [employer], for any future upcoming questions or concerns that they have regarding their management or follow-up in our [facility] breast Surgical Oncology Clinic. This note was dictated using Chumby voice recognition software. Attempts at proofreading were made, but errors may occasionally still occur. I have reviewed Malia Cook medical, surgical and other pertinent history in detail, and have updated medication and allergy information in the computerized patient record. REFERRING/PRIMARY PROVIDER(S) -Referring Provider for today's consult: Tucker Haywood MD -Primary Care Provider: Tucker Haywood documented in this encounterCity [facility]07-24-[facility]24 History of Present illness Narrative* Olamide Euceda - 03/22/2024 3:30 PM EDT NOTE: VERIFY NAME, , ADDRESS FOR CLIENT(UPDATE CATAPULT) Bra Prosthesis Note Malia Cook is being seen today at [facility] by Olamide Euceda for a Breast Issue. Her surgery was on 2021. 06/2023. Mastectomy: R__X L__ Bilateral __ Lumpectomy: R__ L__ Bilateral__ Reconstruction: Yes_X_ No __ Reconstruction removed Yes_X_ No__ Orders Orders: Orders reviewed ___X_ Dx code ___Z85.3 Measurements Bra Band: 31.5 inches Fullest part of Bust: NA inches Final band size:36/38 Final cup size:A / AA Prosthesis/Form: Size: ABC 87522 SZ 4 09/08/23 Additional Visit information Client [...] TO TRY WILL RETURN IN DECEMBER. BILLED [facility]. Did you instruct client on don/doffing procedures: Y Did you instruct client of care for pros/bras: Y Did you instruct client of warranty/storage of pros/bras: Y Purchased: ANI 5726X 36A PK, ANI 5722X 36A CH, ABC 131 MED NU, ABC 96124 SZ 4. Product ordered: - DID YOU RELEASE CARE INSTRUCTIONS Y 03/22/24- DISPENSED & BILLED - ANI 5726X 36A X2, ABC 131 BK MED documented in this encounterCity Hospital07-24-2024 History of Present illness Narrative* Dayami Boggs RN - 03/22/2024 2:30 PM EDT Malia Cook was offered and declined a Medical Felting Machine Operator for this exam/procedure/test 03/22/2024. * Arnaldo Land APRN-EDEN - 03/22/2024 2:30 PM EDT Nando Cook is a 63 y.o. female who presents to the [facility] [place] [facility] for Chief Complaint Patient presents with Follow-up Mammogram and follow-up visit - on Letrozole Referring Provider: Marlene Olivas APR* Breast Surgeon: Dr. Smallwood Plastic Surgeon: Dr. Alvarado Radiation Oncologist: Dr. Gomez PCP: Dr. 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 Today, Nando reports the following: -Right shoulder pain is significant and effects use of this extremity. Surgery was recommended by ortho. -Left knee pain s/p torn meniscus. Injection in left knee about one week ago. Doing pretty good currently. Denies pain elsewhere. -Energy improving. Thyroid med dosing recently changed and feeling better since then. -Eating/drinking well. -Denies headache. -Denies sob, chest discomfort, cough. -Occasional nausea which she thinks was r/t Tylenol. She backed off and is better. Denies emesis. -Intermittent diarrhea. She has been taking magnesium. Denies blood in stool. Up to date on colonoscopy. -Deneis dysuria. -Denies skin change/rash. -Tingling in her feet when she first wakes then improves. -Significant stiffness when she wakes in the night and in AM. -Denies hot flash or vaginal drynss. Coconut oil is helpful. -She feels miserable r/t arthralgias. -No hx blood clot, no uterus. -Remaining ROS unremarkable. Oncologic History: Briefly, Malia [...] mixed ductal and lobular features ER >90%, KY 80-90%, HER 2 IHC: 2+, FISH ratio: [...] cm. 1 lymph node with macrometastatic carcinoma. [id number]. 09/04/2022: Completed adjuvant radiation 08/2022: Started anastrozole 12/2022: Stopped anastrozole r/t arthralgias, hot flashes, changes in eye sight. 04/2023: Switched to exemestane. 06/09/2023: Hold exemestane for two weeks r/t headaches, anxiety, arthralgias. 06/28/2023: Switched to letrozole 03/22/2024: Mammo BR 2, benign. Hold letrozole for two weeks. Considering switch to Tamoxifen. Pertinent Physical Exam: Vitals: Smoking Status Never Patient's Current Performance Status 1 General/Constitutional: Well developed, well nourished female, who [...] quadrants. Soft, non-tender, non-distended. No organomegaly. Extremities: Limited strength and ROM RUE. Normal range of motion in remaining extremities, with normal strength equally and symmetrically. No cyanosis or clubbing or peripheral edema. Neurological: Conscious, alert and oriented. Cranial nerves II through XII are intact grossly and symmetrically. No focal neurologic deficit. Skin: Skin is warm and dry. She is not diaphoretic. Psychiatric: Appropriate mood and affect. Back: No CVA or point vertebral tenderness. Lymph: No supraclavicular or axillary adenopathy. Right Breast: Limited exam r/t decreased ROM RUE. S/p mastectomy and reconstruction. No masses or nodules. No right axillary lymphadenopathy. Tightness in right axilla/pectoralis muscle. Left Breast: S/p mastopexy with well-healed incision. Normal without suspicious masses, skin or nipple changes or axillary nodes Chest Wall: No abnormalities noted. Pertinent Labs, Imaging and Pathology Imaging Data: EXAM: MAMMO DIAGNOSTIC WITH ADRIEL LEFT, 03/22/2024 IMPRESSION: No specific mammographic evidence of malignancy. BI-RADS: 2: Benign Recommendation: Routine mammography. Recommendation Laterality: Left Other Data: Surgical Pathology Report, [id number], 04/10/2022 Pathologic Diagnosis A. Frontier lymph node #1, right axilla, excision: 1 lymph node with macrometastatic carcinoma by H&E and AE1/3 B. Frontier lymph node #2, right axilla, excision: 1 [...] 3.73) per outside report Specimen in which ER/KY/HER2 performed: Previous outside biopsy [id number] pTNM: pT2 pN1a Additional findings: Biopsy site [...] Stage IB (cT2, cN0, cM0, G1, ER+, KY+, HER2-) - Pathologic stage from 04/10/2022: Stage IB (pT2, pN1a(sn), cM0, G2, ER+, KY+, HER2-, Oncotype DX score: 23) Recommendations: 1. Breast Cancer: -No clinical evidence of recurrence -Right breast mastectomy on 04/10/22 with pathology revealing invasive ductal carcinoma, grade 2, measuring 4.2 cm. Oncotype Dx 23. -Unable to tolerate exemestane due to anxiety, arthralgias, and headaches. Switched to letrozole on06/28/23. -She is not currently tolerating letrozole r/t arthralgias. 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 We discussed option to switch to Tamoxifen. We reviewed [facility] data. Nando is amenable to holding letrozole for two weeks to see how she feels. If improvement in s/s after two weeks, she will consider switching to Tamoxifen. We reviewed potential side effects of Tamoxifen, including rare risk of VTE and uterine malignancy. Nando denies history of VTE or family hx of clotting disorder. She is s/p hysterectomy. Nando is aware that Tamoxifen should be held surrounding surgery. Patient education handout provided. -Mammo 03/22/24 Bi-Rads 2, benign. -Next mammogram and follow-up with Dr. Smallwood scheduled 03/28/25.. -Follow up with Trinidad Mckeon APRN-BUILD AND RELEASE MANAGER completed 03/22/24. -Underwent right breast implant exchange and left mastopexy on 06/29/22 2. Supportive Care -Previously reviewed patient education on managing hot flashes and vaginal dryness. Continue coconut oil for vaginal dryness. -Previously reported she stopped venlafaxine for hot flashes. -Calcium and Vitamin D3 for osteoporosis prevention. -Previously offered supportive care services for mood. -Previously offered PT referral for exercise program and evaluation of tightness in axilla. She will try to see PT locally first, external referral provided. 3. Bone Health A. DEXA (08/12/22) with osteopenia. Plan to repeat in 2 years. Order placed today. Scheduled 08/14/24. B. Recommend calcium and vitamin D C. [...] reach us with further questions. CARTER Gabriel documented in this encounterCity Hospital07-24-2024 Instructions* Patient Instructions* Dayami Boggs RN - 03/22/2024 2:30 PM EDT Images from the original note were not included. When will my phone call be returned? Our providers will do their best to answer your call quickly. You should expect a returned call within 24 hours. If you have an emergency, please call 911 or go to your local emergency department. When will my [employer] message be returned? Our providers will do their best to answer your questions quickly. However, there are certain timeswhen you won t get a response. Our providers won t respond to messages on nights, weekends or holidays. [employer] messages are not for urgent issues, and [...] to wait to view your information in [employer] until you speak with your provider. When will my FMLA/Paperwork be returned? Please allow 7-10 business days for completion of FMLA/Paperwork to be returned. Patient Satisfaction Surveys: Your opinion matters! If you receive a patient satisfaction survey in the mail we would appreciate your thoughts. Please help us get better! Store controlled substances (for example - opioids/narcotics, certain stimulants, certain sedatives, etc.) in a locked cabinet or in an area only accessible to you. When you no longer need the controlled substances that have been prescribed for you, do NOT bring them to [facility]. We are NOT permitted under law to accept controlled substances from a patient for disposal. You may dispose of controlled substances, as well as other old or xubp-kyz-ljrrlot and prescription medications, by one of the safe methods listed below: A drug take-back program - this is the best method to dispose of medications safely. You can locatethe take-back program closest to you @ https://takebackday.meir.gov under the COLLECTION SITE SCIENTIFIC WRITER tab. The [facility] Board of pharmacy homepage also has an RX Disposal Design Editor tool @https://www.pharmacy.[place].gov/Compliance/DrugDisposal. If you cannot locate a drug take-back program, never dispose of medications down the sink or toilet. Instead, place the medication in a sealable storage bag and mix with damp coffee grounds, dirt, orcat litter, then seal the bag, and dispose of in your regular trash. If you have or unused cancer medication or hazardous drugs (this does not include Tamoxifen, Anastrozole, Letrozole or Exemestane), these may be potentially donated to our [facility] repository drug program and then given to other patients who are uninsured or underinsured. Ask your [facility] pharmacist about this program. documented in this encounterCity Hospital07-24-2024 History of Present illness Narrative* Nancy Dennis - 03/22/2024 1:31 PM EDT Patient offered a medical hand sander for sensitive exam. Pt declined documented in this encounterCity Hospital07-24-2024 History of Present illness Narrative* Trinidad Mckeon, LEI-BUILD AND RELEASE MANAGER - 03/22/2024 12:30 PM EDT Images from the original note were not included. RADIATION ONCOLOGY FOLLOW-UP NOTE Date of Service: 03/22/2024 PATIENT IDENTIFICATION: Malia Cook is a 63 y.o. woman with a hx of pathologic prognostic stage IB (pT2 pN1a) Grade 2 ER+(95%)/KY+(95%)/Her-2 negative invasive ductal cancer of the RIGHT breast s/p mastectomy and SLNB. Oncotype score 23. She completed adjuvant radiation therapy to her right chest wall and regional nodes to a total dose of 4256 cGY in 16 fractions on 09/04/2022. She presents for routine follow-up. HISTORY OF PRESENT ILLNESS: Last Clinic Visit: 10/07/2022 Duration Since Treatment: ~1 year, 6 months Interval History: 01/27/2023 - Left Diagnostic MMG with Adriel - No specific mammographic evidence of malignancy. BI-RADS: 2. 07/15/2023 - Pt undergoes a removal of right breast permanent implant and capsulectomy and left breast reduction with Dr. Alvarado. Pathology was benign. Today, Malia Cook presents with her , Tyson, for discussion of radiotherapy treatment options. She reports since her last clinic visit, she has developed significant pain and issues with her right shoulder. She notes she had torn her left knee meniscus and was on crutches but ultimately developed pain and decreased ROM in her right shoulder. She notes she had steroid injections for pain without a lot of relief. She is following with Ortho in [place], [place]. She states she had a MRI ofher right shoulder on January 31 which showed that her shoulder collapsed. She is having 4/10 pain today. She is taking tylenol TID and meloxicam once per day for pain. She notes she is scheduled to have a right reverse total shoulder replacement on 05/10/2024 after her steroid injection wears off. She reports she has been fatigued lately. One day she feels fine and the next not. She notes her levothyroxine mediation has been dose adjusted more lately to find the right dose. She denies any right chest wall pain or left breast pain. She denies any new visible or palpable dominant masses or overlying skin changes bilaterally. She denies any left nipple changes or discharge. She denies any axillary or supraclavicular lymphadenopathy bilaterally. She is going to have her annual left breast mammogram later today. She no longer moisturizes the treated area but feels her skin is doing well post treatment. She notes she does not plan on having additional right breast reconstruction (she did have an implant that had to be removed). She is not interested in being fitted for bras and a prosthesis for [employer]. She denies any swelling in her right chest wall or right shoulder. She continues to take letrozole and notes she has significant arthralgias diffusely. She notes movement helps but this feels overall like a poor quality of life. She notes she had not tolerated anastrozole or exemestane but feels the letrozole has been the most tolerable overall. She plans to discuss this further with her Medical Oncology team later today. She denies any new headaches, vision changes, chest pain, cough, sob, abdominal pain, nausea or vomiting. She reports her appetite has been good. She denies any new bowel or bladder issues. No other concerns. Radiation History: Site: Right chest wall and [...] above in the HPI. PHYSICAL EXAM: BP 143/73 (BP Position: Sitting) Pulse 88 Temp 97.7 F (36.5 C) (Temporal) Wt 63.1 kg (139 lb 1.6 oz) SpO2 99% BMI 24.64 kg/m Smoking Status Never Performance status: Karnofsky [...] in the upright and supine position. Right chest wall is s/p mastectomy with awell healed transverse incision; no visible or palpable dominant masses; diffuse mild hyperpigmentation. Left breast is s/p reduction with well healed Carrero-pattern incisions; no visible or palpable dominant masses; mild palpable fibrosis at T-junction; no overlying skin changes; normal NAC. ABDOMINAL: Abdomen soft, non-tender, non-distended. BACK: Non-tender to palpation. EXTREMITIES: No peripheral edema +significantly decreased ROM RUE Circumference Measurement (cm) Right Left Right 03/22/2024 Left Upper Extremity (10 cm above olecranon) 32 31.5 30 30.5 Lower Extremity (10 cm below olecranon) 23 22 24 23.5 Wrist 16 16.5 16.5 16 Thenar 18.5 19 18 19 *Pt is left handed SKIN: Warm, dry, clear NEUROLOGIC EXAM: No focal neurologic deficit. Alert and oriented x 3. Speech is fluent. Gait and station are within normal limits. PSYCHIATRIC: Appropriate mood and affect DATA: RADIOGRAPHIC FINDINGS: As listed above in the HPI PATHOLOGIC FINDINGS: As listed above in the HPI RADIATION TOXICITY: CTCAE Breast 06/09/2023 09:20 06/30/2023 13:02 07/21/2023 13:30 09/08/2023 03/22/2024 CTCAE BREAST Brachial Plexopathy Grade 0 Breast Atrophy Grade 0 Chest Wall Pain Grade 0 Fatigue Grade 1 Grade 1 Grade 1 Grade 0 Grade 1 Fibrosis Deep Connective Tissue Grade 0 Joint Range of Motion Decreased Grade 2 unrelated to tx Localized Edema Grade 0 Pruritus Grade 0 Pneumonitis Grade 0 Skin Hyperpigmentation Grade 1 Skin Hypopigmentation Grade 0 Skin Induration Grade 0 Skin Ulceration Grade 0 Telangiectasia Grade 0 Weight Loss Grade 0 Details More values are hidden. Newest values shown. Go to activity for more data. ASSESSMENT AND PLAN: In summary, Malia Cook is a 63 y.o. 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 Oncotype score 23. She completed adjuvant radiation therapy to her right chest wall and regional nodes to a total dose of 4256 cGY in 16 fractions on 09/04/2022. She presents for routine follow-up, five weeks after completing treatment. She presents today for follow up. She has recovered well from the acute side effects of radiation and has expected residual mild hyperpigmentation. She is clinically GREGORY. She is taking letrozole and endorses significant arthralgias. She is scheduled to have a right reverse total shoulder replacement on 05/10/2024. Disease status: GREGORY on exam today Skin care: We encouraged her to continue to moisturize the treated area daily and to wear sunscreenwhen outdoors. Breast cancer: Continues to follow up as appropriate with Medical Oncology and Surgical Oncology Endocrine therapy: Continue letrozole as directed by Medical Oncology Referrals: None Mammogram: Scheduled for later today, 03/22/2024 Follow up: 6 months or sooner, should she have any questions or concerns Thank you for allowing me to participate in the management and care of this pleasant patient. Please do not hesitate to contact me with any questions. Trinidad Mckeon DNP, BUSINESS DEVELOPMENT ASSISTANT-BUILD AND RELEASE MANAGER [facility] Radiation Oncology [phone] * Eder Dill RN - 03/22/2024 12:30 PM EDT Follow-up (Follow-up visit after completion of Radiation Therapy for Right Chest Wall and Nodes 16/16 Fractions; 4256/4256 cGy ) Pain Assessment: Presence of Pain: reports pain/discomfort Pain Location: shoulder, right Pain Management Interventions: declines intervention DVPRS: Rest: 4- mild pain Pain Quality: sharp Factors That Aggravate Pain: movement Factors That Relieve Pain: medications, over the counter (OTC), medications, opiod Fatigue Assessment: Fatigue Fatigue: Fatigue relieved by rest Breast changes: Denies concerns or issues to the right chest wall. Reports moisturizing as needed with Lotion. Arm concerns: Yes, patient states her right shoulder is collapsed and she is in pain, so she is notable to lift her right arm very high without being in pain. Sleep disturbances: No Coping issues: No Patient concerns: None at this time Recommendations: Moisturize daily. Call clinic should questions or concerns arise. Patient Handouts: None Malia Cook was offered and declined a Medical Felting Machine Operator for this exam/procedure/test 03/22/2024. Report given to Trinidad Mckeon DNP, BUSINESS DEVELOPMENT ASSISTANT-EDEN Dill, RN documented in this encounterU [facility] Instructions* Patient Instructions* CARTER Whitney - 03/22/2024 12:30 PM EDT Your Radiation Oncology Team Advanced Practice Provider(s): Trinidad Mckeon APRN CNP Primary Nurses: DARLENE MoreauN, RN; AUBREY Gaines, RN; AUBREY Sanchez, RN We are available to take calls at [phone] Wednesday-Wednesday 8:00am-4:30pm. Please allow 24 hours for non-urgent return phone calls and MyChart messages. During non-business hours and holidays, phone calls will be managed by after- hours [facility] Roberto RN's. Please allow at least 10 business [...] today's exam -Continue taking your anti-estrogen therapy (letrozole) -Continue skin care with moisturizer at least once per day -Keep appointments as scheduled with your other providers. -You will have your left breast mammogram later today. -Follow up with Dr. Gomez in 6 months. -Please do not hesitate to call [phone] if you have any questions or concerns prior to your next visit. -Zarate symptoms to look out for: new lumps or bumps on your chest/breast, under your armpit or by your collarbones; difficulty breathing; chest pains; new pains in bony areas that persist and/or wake you up in the middle of the night; headaches that persist; weakness in the extremities; falls -Thank you! Trinidad Mckeon DNP, BUSINESS DEVELOPMENT ASSISTANT-BUILD AND RELEASE MANAGER [facility] Radiation Oncology [phone] documented in this encounterU [facility] Telephone encounter Note* Telephone Encounter - Andreina Oneal PA-C - 01/21/2024 5:46 PM EDT Discussed pt's case with Dr. Jasso. Recommending [...] Dr. Jasso to determine the next steps. Andreina Oneal PA-C [facility]05-24-2024 Miscellaneous Notes* Telephone Encounter - Andreina Oneal PA-C - 01/21/2024 5:46 PM EDT Discussed pt's case with Dr. Jasso. Recommending [...] Dr. Jasso to determine the next steps. Andreina Oneal PA-C documented in this encounterCrystal Clinic [facility]05-24-2024 NoteHNO ID: [id number] Author: ANDREINA ONEAL PA-C Service: ? Author Type: Physician Nanosystems Engineer Type: Progress Notes Filed: 01/21/2024 09:06 Note [...] albuterol HFA (PROAIR HFA) 90 mcg/actuation inhaler dicjkwstwdi-auzdzwcil-omlqhbcn (TRELEGY ELLIPTA) 200-62.5-25 mcg dsdv albuterol (PROVENTIL) 2.5 mg /3 mL (0.083 %) nebulizer solution esomeprazole (NEXIUM) 40 mg capsule Estradiol (ESTRACE) 0.5 mg tablet levothyroxine (SYNTHROID) 50 mcg tablet magnesium oxide 400 mg tablet Review of Systems: Reviewed and charted into [employer]. Physical Exam: PE reveals a female with [...] Impression Complete radial tear (more content not included)...[facility] 01-21-2024 History of Present illness Narrative* Andreina Oneal PA-C - 01/21/2024 8:40 AM EDT Images from the original note were not included. Patient: Malia Cook : 1960 Providers Referring physician: Tucker Haywood MD Primary care physician: Tucker Haywood MD Chief complaint: Patient presents with: Left Knee Pain Patient seen in subspecialty orthopedic knee consultation at the request of Tucker Haywood MD. Thefinal recommendations will be communicated back to the requesting clinician by way of the shared medical record or letter via US mail. HPI: Malia Cook is a 63 year old female seen with a 2 months history of left knee pain. The onsetof pain has been acute on chronic, and [...] albuterol HFA (PROAIR HFA) 90 mcg/actuation inhaler xoyheksiael-ydellrtfn-oyzvedff (TRELEGY ELLIPTA) 200-62.5-25 mcg dsdv albuterol (PROVENTIL) 2.5 mg /3 mL (0.083 %) nebulizer solution esomeprazole (NEXIUM) 40 mg capsule Estradiol (ESTRACE) 0.5 mg tablet levothyroxine (SYNTHROID) 50 mcg tablet magnesium oxide 400 mg tablet Review of Systems: Reviewed and charted into [employer]. Physical Exam: PE reveals a female with [...] the affected knee were imaged today in theoffice. Patient has evidence of prior ACL reconstruction [...] patient is satisfied with plan of care. Andreina Oneal PA-C documented in this encounterCrystal [facility]01-10-2024 History of Present illness Narrative* Kathe Liu RN - 09/08/2023 12:45 PM EST Malia Cook was offered and declined a Medical Felting Machine Operator for this exam/procedure/test 09/08/2023. * Sharath Alvarado MD - 09/08/2023 12:45 PM EST Reason for Visit H/o right breast cancer S/p right mastectomy (Povoski), 04/10/2022 S/p right breast reconstruction with tissue transportation maintenance worker, 04/10/2022 S/p right breast implant exchange, left breast reduction, 06/29/2022 S/p right postmastectomy radiation therapy, completed 09/04/2022 S/p right breast implant removal, left breast reduction, 07/15/2023 Postoperative assessment Subjective Presents for previously scheduled f/u. No c/o. Objective Right chest: incision intact, no masses or collections Left: incision intact, no masses or collections Assessment/Plan FU PRN documented in this [facility]01-10-2024 History of Present illness Narrative* Olamide Euceda - 09/08/2023 9:30 AM EST NOTE: VERIFY NAME, , ADDR[facility] FOR CLIENT([facility] Bra Prosthesis Note Malia Cook is being seen today at [facility] by Olamide Euceda for a Breast Issue. Her surgery was on 2021. 06/2023. Mastectomy: R__X L__ Bilateral __ Lumpectomy: R__ L__ Bilateral__ Reconstruction: Yes_X_ No __ Reconstruction removed Yes_X_ No__ Orders Orders: Orders reviewed ___X_ Dx code ___Z85.3 Measurements Bra Band: 31.5 inches Fullest part of Bust: NA inches Final band size:36/38 Final cup size:A / AA Prosthesis/Form: Size: ABC 24455 SZ 4 09/08/23 Additional Visit information Client [...] [address], [address], [place] [address] SZ 4. Product ordered: - DID YOU RELEASE CARE INSTRUCTIONS Y documented in this encounterCity Hospital01-10-2024 History of Present illness Narrative* Mel Giron MD - 09/08/2023 8:30 AM EST Nando Cook is a 62 y.o. female who presents to the [facility] for Chief Complaint Patient presents with Follow-up Letrozole Referring Provider: Marlene Olivas, APR* Breast Surgeon: Dr. Smallwood Plastic Surgeon: Dr. Alvarado Radiation Oncologist: Dr. Gomez PCP: Dr. Tucker Haywood Date of Diagnosis: 01/20/2022 Encounter Date: 09/08/2023 Diagnosis: Stage IB T2cN0 invasive carcinoma with mixed ductal and lobular features, well differentiated , ER positive (>90%), KY positive (80-90%), HER-2 equivocal (IHC 2+), FISH negative (HER2/CEP17 1.8, HER-2 copy number 3.73) Pathologic: pY0hD3x(sn), Oncotype 23 Current Treatment: letrozole Pertinent History [...] on the treadmill and using a weighted hulahoop. She denies headaches, vision changes, chest pain, SOB, bowel issues, numbness or tingling, orrash. She denies any new breast concerns, but her right axilla is still tight and her right arm ROMis not back to baseline. Oncologic History: Briefly, [...] mixed ductal and lobular features ER >90%, KY 80-90%, HER 2 IHC: 2+, FISH ratio: [...] cm. 1 lymph node with macrometastatic carcinoma. [id number]. 09/04/2022: Completed adjuvant radiation 08/2022: Started anastrozole [...] to review Other Data: Surgical Pathology Report, [id number], 04/10/2022 Pathologic Diagnosis A. Frontier lymph node #1, right axilla, excision: 1 lymph node with macrometastatic carcinoma by H&E and AE1/3 B. Frontier lymph node #2, right axilla, excision: 1 [...] 3.73) per outside report Specimen in which ER/KY/HER2 performed: Previous outside biopsy [id number] pTNM: pT2 pN1a Additional findings: Biopsy site [...] Stage IB (cT2, cN0, cM0, G1, ER+, KY+, HER2-) - Pathologic stage from 04/10/2022: Stage IB (pT2, pN1a(sn), cM0, G2, ER+, KY+, HER2-, Oncotype DX score: 23) Recommendations: 1. Breast Cancer: -No clinical evidence of recurrence -Right breast mastectomy on 04/10/22 with pathology revealing invasive ductal carcinoma, grade 2, measuring 4.2 cm. Oncotype Dx 23. -Unable to tolerate exemestane due to anxiety, arthralgias, and headaches. Switched to letrozole on06/28/23. -She is tolerating letrozole very well to date with minimal side effects. She will continue on letrozole. -Mammogram and follow-up with Dr. Smallwood scheduled 03/01/24. -Follow up with Arnaldo Escobedo APRN-BUILD AND RELEASE MANAGER scheduled 10/13/23. -Underwent right breast implant exchange [...] Completed 09/24/22 RTC 6 months to see HERB for evaluation. All of the patient's questions [...] the discharge instructions. Mel Giron MD, MEd Metal Mold Dresser of Internal Medicine Division of Medical Oncology [facility] * Anjelica Gonzales RN - 09/08/2023 8:30 AM EST Patient offered a medical hand sander for sensitive exam. Pt declined. documented in this encounterCity Hospital01-10-2024 Instructions* Patient Instructions* Anjelica Gonzales RN - 09/08/2023 8:30 AM EST Images from the original note were not included. When will my phone call be returned? Our providers will do their best to answer your call quickly. You should expect a returned call within 24 hours. If you have an emergency, please call 911 or go to your local emergency department. When will my [employer] message be returned? Our providers will do their best to answer your questions quickly. However, there are certain timeswhen you won t get a response. Our providers won t respond to messages on nights, weekends or holidays. [employer] messages are not for urgent issues, and [...] to wait to view your information in [employer] until you speak with your provider. When [...] you @ https://takebackday.meir.gov under the COLLECTION SITE SCIENTIFIC WRITER tab. Never dispose of un-needed medications down the sink or toilet. Instead, crush the medication and mix with damp coffee grounds or cat litter, place in a sealed plastic freezer bag, and dispose of in your regular trash. documented in this encounterCity Hospital11-22-2023 History of Present illness Narrative* Alicia Golden RN - 07/21/2023 1:30 PM EST Malia Cook was offered and declined a Medical Felting Machine Operator for this exam/procedure/test 07/21/2023. * CHRISTIAN Gabriel - 07/21/2023 1:30 PM EST DRAIN LOG DRAIN # 1 Date Output 07/18 24 mL 07/19 29 mL 07/20 22 mL 09/20 15 mL Am only DRAIN # 2 Date Output 07/18 27 mL 07/19 29 mL 07/20 20 mL 07/21 11 mL Am only * Caryn Noe PA-C - 07/21/2023 1:30 PM EST Patient was evaluated by myself and Dr. Alvarado Reason for Visit: Postoperative Evaluation Patient History: Malia Cook is a 62 y.o. female with a history of asthma, hypothyroidism, and right breast cancer. S/p right mastectomy (Povoski) 04/10/2022 S/p right breast reconstruction with transportation maintenance worker 04/10/2022 S/p right breast implant exchange, left [...] - RTC [address] Alvarado - Call the office with any questions or concerns. Requested Prescriptions No prescriptions requested or ordered in this encounter There are no diagnoses linked to this encounter. documented in this encounterOSKindred [facility]11-22-2023 Instructions* Patient Instructions* Caryn Noe PA-C - 07/21/2023 1:30 PM EST RTC [address] Alvarado documented in this encounterOSKindred [facility]11-15-2023 Evaluation note * Encounter Date Diagnosis Assessment Notes Treatment Notes Treatment Clinical Notes Jun, Asthma (ICD-10 - J45.909) Jun,Upper airway cough syndrome (ICD-10 - R05.8) Jun,ERD (gastroesophageal reflux disease) (ICD-10 - K21.9) Jun,Reactive airway disease (ICD-10 - J45.909) Jun,Lung nodule, multiple (ICD-10 - R91.8) [facility] Other 11-01-2023 History and physical note* Caryn Noe PA-C - 06/30/2023 1:00 PM EDT Plastic and Reconstructive Surgery H&P HPI: Ms. Cook is a 62 y.o. female with a past medical history of asthma, hypothyroidism, and right breast cancer. S/p right mastectomy (Povoski) 04/10/2022 S/p right breast reconstruction with transportation maintenance worker 04/10/2022 S/p right breast implant exchange, left [...] carcinoma with mixed ductal and lobular features, ER+/KY+/HER2- ;ONCOTYPE 23 Past Surgical History: Procedure Laterality Date EXCHANGE TISSUE ENGINEERING WRITER W/ PERMANENT IMPLANT Right 06/29/2022 Laterality: Right; Surgeon: Sharath Alvarado MD; Location: [facility] MA[facility] OR CAPSULOTOMY BREAST Right 06/29/2022 Laterality: Right; Surgeon: Sharath Alvarado MD; Location: [facility] OR BREAST REDUCTION Left 06/29/2022 Laterality: Left; Surgeon: Sharath Alvarado MD; Location: [facility] MA[facility] OR REPAIR WOUND SIMPLE AXILLAE TRUNK Right 06/29/2022 Laterality: Right; Surgeon: Sharath Alvarado MD; Location: [facility] OR MASTECTOMY COMPLETE Right 04/10/2022 Laterality: Right; Surgeon: Stuart Smallwood MD; Location: [facility] MA[facility] OR BX LYMPH NODE AXILLARY DEEP Right 04/10/2022 Laterality: Right; Surgeon: Stuart Smallwood MD; Location: [facility] MA[facility] OR INJECTION RADIOACTIVE TRACER FOR SENTINEL NODE IDENTIFICATION Right 04/10/2022 Laterality: Right; Surgeon: Stuart Smallwood MD; Location: [facility] OR 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 BREAST TISSUE ENGINEERING WRITER INCLUDING SUBSEQUENT EXPANDERS Right 04/10/2022 Laterality: Right; Surgeon: Sharath Alvarado MD; Location: [facility] OR CORE [...] capsule by mouth every morning before breakfast. Uxqyejittdx-Xvckolgza-Cozufa (Trelegy Ellipta) 200-62.5-25 MCG/ACT Aerosol Powder, breath [...] swollen legs [] obesity (BMI>25) [] acute TN [] CHF <1 month [] sepsis (<1 [...] thrombosis [] Factor V Leiden [] Prothrombin [id number] [] Elevated serum homocysteine [] Positive Lupus [...] form. A total of 45 minutes of xbkq-ya-vmyo time was spent with the patient, of which more than 50% was spent counseling about the intra- and post-operative surgical plans. Orders Placed. [facility] History and physical note* Caryn Noe PA-C - 06/30/2023 1:00 PM EDT Plastic and Reconstructive Surgery H&P HPI: Ms. Cook is a 62 y.o. female with a past medical history of asthma, hypothyroidism, and right breast cancer. S/p right mastectomy (Povoski) 04/10/2022 S/p right breast reconstruction with transportation maintenance worker 04/10/2022 S/p right breast implant exchange, left [...] carcinoma with mixed ductal and lobular features, ER+/KY+/HER2- ;ONCOTYPE 23 Past Surgical History: Procedure Laterality Date EXCHANGE TISSUE ENGINEERING WRITER W/ PERMANENT IMPLANT Right 06/29/2022 Laterality: Right; Surgeon: Sharath Alvarado MD; Location: [facility] OR CAPSULOTOMY BREAST Right 06/29/2022 Laterality: Right; Surgeon: Sharath Alvarado MD; Location: [facility] OR BREAST REDUCTION Left 06/29/2022 Laterality: Left; Surgeon: Sharath Alvarado MD; Location: [facility] OR REPAIR WOUND SIMPLE AXILLAE TRUNK Right 06/29/2022 Laterality: Right; Surgeon: Sharath Alvarado MD; Location: [facility] OR MASTECTOMY COMPLETE Right 04/10/2022 Laterality: Right; Surgeon: Stuart Smallwood MD; Location: [facility] OR BX LYMPH NODE AXILLARY DEEP Right 04/10/2022 Laterality: Right; Surgeon: Stuart Smallwood MD; Location: [facility] OR INJECTION RADIOACTIVE TRACER FOR SENTINEL NODE IDENTIFICATION Right 04/10/2022 Laterality: Right; Surgeon: Stuart Smallwood MD; Location: [facility] MAIN OR 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 BREAST TISSUE ENGINEERING WRITER INCLUDING SUBSEQUENT EXPANDERS Right 04/10/2022 Laterality: Right; Surgeon: Sharath Alvarado MD; Location: [facility] MAIN OR CORE BIOPSY OF THE BREAST Right 01/20/2022 invasive carcinoma BLADDER SUSPENSION 2012 mostly removed d/t infection HYSTERECTOMY 2011 BLADDER SUSPENSION 2005 ACL 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 Left 2005 Allergies Allergen Reactions [...] capsule by mouth every morning before breakfast. Pmuexupfuvp-Imtfeemaz-Wnuujw (Trelegy Ellipta) 200-62.5-25 MCG/ACT Aerosol Powder, breath [...] 68 Diabetes Brother Thyroid Cancer Maternal Grandmother dxAleyda young, also had goiter removed, d. 82 [...] swollen legs [] obesity (BMI>25) [] acute TN [] CHF <1 month [] sepsis (<1 month) [] Lung disease including PNA (<1 month) [] Abnormal pulmonary fxn (COPD) [] Currently on bedrest [] OCP or HRT [] or (<1 month) [] Hx unexplained stillborn, spontaneous (>3), premature with toxemia or growth restricted infant 2 points each: [x] Age 60-74 [] Arthroscopic surgery [x] Malignancy hx [x] Major surgery planned (>45 min) [] Laparoscopic surgery (>45 min) [] Patient confined to bed (>72 hrs) []Immobilizing plaster cast [] Central Venous Access 3 points each: [] Age >75 [] Hx DVT/PE [] Family hx of thrombosis [] Factor V Leiden [] Prothrombin 94666F [] Elevated serum homocysteine [] Positive Lupus [...] form. A total of 45 minutes of tnxf-us-gjyc time was spent with the patient, of which more than 50% was spent counseling about the intra- and post-operative surgical plans. Orders Placed. documented in this encounterOSU [facility]11-01-2023 History of Present illness Narrative* Kathe [...] all questions were answered. documented in this encounterCity Hospital11-01-2023 Instructions* Patient Instructions* Caryn Noe PA-C - [...] your procedure. *Please call the office at [phone] if any cold, flu like or other [...] 3. DO NOT wear lotion, makeup, nail russian, contact lens, or perfume/cologne. 4. DO NOT [...] - No repetitive arm movements, including all spanish literature professor, for 6 weeks. - No bouncing activities [...] the Plastics and Reconstructive Surgery office at [phone] promptly with any of the following concerns: [...] the take-back program closest to you at https://takebackday.SingleFeed.gov under the COLLECTION SITE SCIENTIFIC WRITER tab. Never dispose of un-needed medications down [...] arm, or other area Date Last Reviewed: 12/29/201519991575-4593 [employer]. [address] [place] [address]. All rights reserved. This information is not intended as a substitute for professional medical care. Always follow yourhealthcare professional's instructions. documented in this encounterOSU [facility]10-19-2023 Evaluation note * Encounter Date Diagnosis Assessment Notes Treatment Notes Treatment Clinical Notes May, Puncture wound of ri ght hand without foreign body, initial encounter (ICD-10 - S61.431A) Finish antibiotics as prescribed. Advised to take with food. Patient denies history of yeast infections with stronger antibiotics. Patient will be aware of any streaking or further redness in her hand or arm. [employer] Other [id number] History of Present illness Narrative* Arnaldo Land, LEI-BUILD AND RELEASE MANAGER - 06/09/2023 9:00 AM EDT Nando Cook is a 62 y.o. female who presents to the [facility] for Chief Complaint Patient presents with Follow-up Exemestane Referring Provider: Marlene Olivas, APR* Breast Surgeon: Dr. Smallwood Plastic Surgeon: Dr. Alvarado Radiation Oncologist: Dr. Gomez PCP: Dr. Tucker Haywood Date of Diagnosis: 01/20/2022 Encounter Date: 06/09/2023 Diagnosis: Stage IB T2cN0 invasive carcinoma with mixed ductal and lobular features, well differentiated , ER positive (>90%), KY positive (80-90%), HER-2 equivocal (IHC 2+), FISH negative (HER2/CEP17 1.8, HER-2 copy number 3.73) Pathologic: aR9cY7f(sn), Oncotype 23 Current Treatment: exemestane Pertinent History and Review of Systems Nando presents today for follow-up on exemestane. Today, Nando reports the following: -Increased anxiety since starting exemestane. -She has been struggling with her asthma which contributes to lower energy but has improved over the past couple days. Follows closely with exhaust machine operator. -Frequent headaches since starting exemestane, nearly daily. [...] mixed ductal and lobular features ER >90%, KY 80-90%, HER 2 IHC: 2+, FISH ratio: [...] cm. 1 lymph node with macrometastatic carcinoma. [id number]. 09/04/2022: Completed adjuvant radiation 08/2022: Started anastrozole [...] to review Other Data: Surgical Pathology Report, [id number], 04/10/2022 Pathologic Diagnosis A. Frontier lymph node #1, right axilla, excision: 1 lymph node with macrometastatic carcinoma by H&E and AE1/3 B. Frontier lymph node #2, right axilla, excision: 1 [...] 3.73) per outside report Specimen in which ER/KY/HER2 performed: Previous outside biopsy [id number] pTNM: pT2 pN1a Additional findings: Biopsy site [...] Stage IB (cT2, cN0, cM0, G1, ER+, KY+, HER2-) - Pathologic stage from 04/10/2022: Stage IB (pT2, pN1a(sn), cM0, G2, ER+, KY+, HER2-, Oncotype DX score: 23) Recommendations: 1. [...] Dr. Smallwood scheduled 03/01/24. -Follow up with CARTER [facility] scheduled 10/13/23. -Underwent right breast implant exchange [...] 9:00 AM EDT Patient offered a medical hand sander for sensitive exam. Pt declined. documented in this encounterCity Hospital10-11-2023 Instructions* Patient Instructions* Anjelica Gonzales RN - [...] your local emergency department. When will my [employer] message be returned? Our providers will do their best to answer your questions quickly. However, there are certain timeswhen you won t get a response. Our providers won t respond to messages on nights, weekends or holidays. [employer] messages are not for urgent issues, and [...] to wait to view your information in [employer] until you speak with your provider. When [...] you @ https://takebackday.meir.gov under the COLLECTION SITE SCIENTIFIC WRITER tab. Never dispose of un-needed medications down the sink or toilet. Instead, crush the medication and mix with damp coffee grounds or cat litter, place in a sealed plastic freezer bag, and dispose of in your regular trash. documented in this encounterCity Hospital09-20-2023 Evaluation note * Encounter Date Diagnosis Assessment Notes Treatment Notes Treatment Clinical Notes Apr, Asthma (ICD-10 - J45.909) Use rescue inhaler prior to exercise. Apr,Upper airway cough syndrome (ICD-10 - R05.8)Controlling post nasal drip and allergy symptoms will ultimately lessen cough. Apr,ERD (gastroesophageal reflux disease) (ICD-10 - K21.9)Take Nexium as needed during day and pepcid at night for acid reflux. Apr,Reactive airway disease (ICD-10 - J45.909) [facility] Other 09-12-2023 Evaluation note* Encounter Date Diagnosis Assessment Notes Treatment Notes Treatment Clinical Notes Apr, Moderate persistent asthma with exacerbation (ICD-10 - J45.41) take entire prescription keep appt w pulmonology Pt states she did complete the PFT. [facility] Other 06-29-2023 Evaluation note* Encounter Date Diagnosis Assessment Notes Treatment Notes Treatment Clinical Notes Jan, Moderate persistent asthma with acute exacerbation (ICD-10 - J45.41) [facility] Other 06-28-2023 History of Present illness Narrative* Sharath Alvarado MD - 02/24/2023 8:45 AM EDT Plastic Surgery Attending Addendum I independently saw and examined Ms. Cook and have personally reviewed their chart. I have reviewed the note by Andreina BARTON and made revisions to the history, [...] Right breast reconstruction with latissimus flap and transportation maintenance worker - if pain/tightness are not manageable and patient does wish to preserve reconstruction I discussed timing of intervention: 1. At least 6 mos from end of PMRT 2. If pain/tightness are manageable, then when right breast appearance no longer changing 3. If pain/tightness are not manageable, then anytime The patient will contact us when ready for intervention. A total of 25 minutes of hqlw-qn-bsit time was spent in this encounter, of which >50% was spent in counseling and coordination of care. Sharath Alvarado MD * Andreina Padilla, PAC - 02/24/2023 8:45 AM EDT Patient was evaluated by myself and Dr. Alvarado. Subjective: S/p right mastectomy (Povoski) 04/10/2022 S/p right breast reconstruction with transportation maintenance worker 04/10/2022 S/p right breast implant exchange, left [...] before your next visit. documented in this encounterOSKindred Hospital [facility]06-22-2023 Evaluation note * Encounter Date Diagnosis Assessment Notes Treatment Notes Treatment Clinical Notes Jan, Moderate persistent asthma with exacerbation (ICD-10 - J45.41) Chest xray normal will refer to [facility] for evaluation. Pt agrees. Jan,reast cancer, right (ICD-10 - C50.911)Discussed possible link between the surgical site pain and possibly her dyspnea. [facility] Other 06-13-2023 Evaluation note* Encounter Date Diagnosis Assessment Notes Treatment Notes Treatment Clinical Notes Jan, Moderate persistent asthmatic bronchitis with acute exacerbation (ICD-10 - J45.41) [facility] Other 05-31-2023 History of Present illness Narrative* Stuart Smallwood MD - 01/27/2023 2:15 PM EDT FOLLOW UP NOTE FOR [facility]: DR. SMALLWOOD: HISTORY [...] as of 02/24/2022. The patient lives in [place], [place]. ################################################################################ ############################################ The patient has a personal history of a RIGHT breast cancer process (pT2 [4.2 cm], pN1 [1/3 right axillary lymph nodes positive for macrometastatic carcinoma measuring 3 mm, without extranodal extension], 95% ER positive, 95% KY positive, HER2 negative, intermediate grade invasive mammary carcinomawith lobular features of the 5:00 position of the right breast [3.2 cm FRN]; Oncotype DX recurrencescore 23), which was initially diagnosed in late December 2021, and for which the patient underwent a right total mastectomy procedure and right axillary sentinel lymph node mapping and biopsy procedure (by nh) and placement of a right-sided tissue transportation maintenance worker (by Dr. Sharath Alvarado of [facility] Plastic surgery) at [facility] on 04/10/2022. The patient has a personal history of NEGATIVE comprehensive genetic testing for any form of hereditary breast cancer syndrome, as based upon GoBeMe 77- gene CancerNext-Expanded+RNA panel testfrom blood collected on 03/04/2022. 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 ################################################################################ ############################################ The patient is most recent outside prior breast imaging was performed at [facility] in [place], [place], including bilateral diagnostic digital mammogram and right breast ultrasound on 01/15/2022. On 02/21/2021, the patient underwent a 12 lead EKG through the [facility] in [place], [place].This showed normal sinus rhythm with a ventricular rate of 69 beats per minute. They stated: Impression: SINUS RHYTHM WITH SHORT KY. NONSPECIFIC T WAVE ABNORMALITY. ABNORMAL ECG. . On 04/02/2021, the patient underwent Cardiopulmonary Exercise Test (CPET) at the [facility], in [place], [place]. They stated: Summary: In summary, in [...] right breast [3.2 cm FRN] at [facility] in [place], [place]. The final pathology from 01/20/2022 showed low-grade invasive carcinoma with mixed ductal and lobular features, measuring 1.9 cm in greatest dimension, which was found to be >90% ER positive, 80-90% KY positive, and HER2/lizzette negative. On 04/01/2022, the patient's outside pathology was reviewed by Dr. Spears of [facility] breast pathology. They stated: Pathologic Diagnosis: Outside Slides: [id number] (01/20/22): A. Right breast spiculated mass at [...] in an addendum. Dr. Adams has reviewed real estate representative slides. at 1735. . On 02/18/2022, the patient's outside breast imaging was reviewed by Dr. Biju Blum of [facility] breast Radiology. They stated: EXAM: BREAST IMAGING [...] OR DRUG EFFECTS. Confirmed by Jesusita Hurt ([id number]) on 02/26/2022 5:37:03 AM. . On 02/24/2022, [...] patient be seen by 1 of the [facility] Plastic Surgeons. We discussed the importance of having the patient be seen by 1 of the [facility] breast medical oncologist. We discussed the importance of having the patient be seen by 1 of the [facility] breast radiation oncologist. We discussed obtaining repeat [...] having the patient be evaluated by the [facility] clinical cancer genetics service to discuss comprehensive [...] patient contact information for our nurse practitioner, Prakash Santiago, and have instructed the patient to remain in contact with our nurse practitioner, Prakash Santiago, through [employer], for any future upcoming questions or concerns that they have regarding their management or follow-up in our [facility] breast Surgical Oncology Clinic. . On 02/24/2022, the patient underwent right breast ultrasound and right axillary ultrasound at [facility]. This was read by Dr. Wei Robertson of [facility] breast radiology. They stated: EXAM: US BREAST LIMITED UNILATERAL RIGHT, US AXILLA FOR MAMMOGRAPHY RIGHT, 02/24/2022 10:44 AM (accession [id number]), 02/24/2022 10:45 AM (accession [id number]). CLINICAL INDICATIONS: New right breast malignancy 5 [...] patient underwent a bilateral breast MRI at [facility]. This was read by Dr. Wei Robertson of [facility] breast radiology. They stated: FINDINGS: Amount of [...] 03/04/2022, the patient was seen by Dr. Sharath Alvarado of [facility] Plastic surgery. They stated: Plan: I discussed that the patient would be most suited to 2-stage implant-based reconstruction. After discussion, the patient stated that they wish to proceed with: right mastectomy and immediate breast reconstruction with tissue transportation maintenance worker. We will schedule/coordinate surgery and the patient will return at their preoperative appointment. . On 03/18/2022, the patient underwent a nuclear medicine cardiac stress test at [facility]. They stated: Interpretation Summary: Lexiscan Stress myocardial [...] was seen by Dr. Deepti Gomez of [facility] breast Radiation Oncology. On 04/01/2022, the genetic counselor, Silverio Romero issued the following telephone encounter note inthe patient's [facility] electronic medical record chart. They stated: We met with initially in the Clinical Cancer Genetics Program on 03/04/2022 for genetic risk assessment and counseling. We spoke by telephone on 03/13/2022 to discuss the negative results of her STAT genetic testing. Homartin spoke by telephone on 04/01/22 for follow-up genetic counseling to discuss the results of hergenetic testing. Genetic counseling graduate civil engineer, Halle Dowell, observed this encounter. Ms. Cook at another appointment when I called to discuss results. Should she have any questions about the results she can contact me directly at [phone]. RESULT AND INTERPRETATION: Based upon s personal and family history, she underwent multi-gene panel testing for variants in genes reported to be associated with hereditary cancer predisposition. 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 This 77-gene panel test is called ClearTax+RNA and was performed by [employer]. The genes that were tested are listed below: AIP, ALK, APC, ELEUTERIO, AXIN2, BAP1, BARD1, BLM, BMPR1A, BRCA1, BRCA2, BRIP1, CDC73, CDH1, CDK4, CDKN1B, CDKN2A, CHEK2, CTNNA1, DICER1, EGFR, EGLN1, EPCAM,FANCC, FH, FLCN, GALNT12, GREM1, HOXB13, KIF1B, KIT, LZTR1, MAX, MEN1, MET, MITF, MLH1, MSH2, MSH3,MSH6, MUTYH, NBN, NF1, NF2, NTHL1, PALB2, PDGFRA, PHOX2B, PMS2, POLD1, POLE, POT1, TTUMU8F, PTCH1, PTEN, RAD51C, RAD51D, RB1, RECQL, RET, SDHA, SDHAF2, SDHB, SDHC, SDHD, SMAD4, SMARCA4, SMARCB1, SMARC E1, STK11, SUFU, KCZE255, TP53, TSC1, TSC2, VHL and XRCC2. Refer [...] sentinellymph node mapping and biopsy procedure (by nh) and placement of a right-sided tissue transportation maintenance worker (by Dr. Sharath Alvarado of [facility] Plastic surgery). The final pathology from 04/10/[address] Antelmo Adams of [facility] breast pathology. This showed: (1) The right [...] or overall survival (Rand V, Inocente BF, Elisa S, Jessenia G, Alicia A, Karin P, Radha P, Ghazala C, Marilyn M, Neva M, Cass O, [place] MG, Mazzarol G, Oscararmeghann S, Maddy JR, Anabelle J, Jose H, Tyshawn A, Tonia D, Rosalio M, Willian M, Natan KN, Don MM, Maribel A, Toshia , Azeb RD, Karin U; International Breast Cancer Study Group Trial investigators. Axillary dissection versus no axillary dissection in patients with sentinel-node micrometastases (IBCSG ): a phase 3 randomised controlled trial. Lancet Oncol 2013; 14(4):297-305 [doi: 10.1016/B3240-6833(17)76347-4]). Therefore, as based upon the prior The International BreastCancer Study Group (IBCSG) Clinical Trial Study, I would consider extrapolating [...] continue her ongoing postoperative follow-up with Dr. Sharath Alvarado of [facility] Plastic surgery for management of her right-sided surgical MOLLY drains. We will initiate the process of sending off Oncotype DX recurrence score testing on the patient's right breast cancer process. We will subsequently have the patient be evaluated by 1 of the [facility] breast medical oncologist to discuss postoperative adjuvant [...] patient contact information for our nurse practitioner, Prakash Santiago, and have instructed the patient to remain in contact with our nurse practitioner, Prakash Santiago, through [employer], for any future upcoming questions or concerns that they have regarding their management or follow-up in our [facility] breast Surgical Oncology Clinic. . On 06/29/2022, the patient underwent exchange of her right-sided tissue transportation maintenance worker for permanent right-sided silicone gel implant, and excision of right-sided cone deformity correction, and contralateral left reduction mastopexy procedure by Dr. Sharath Alvarado of [facility] Plastic surgery. The patient received postoperative adjuvant postmastectomy radiation therapy to her right mastectomy/implant reconstruction site, which she completed in early August 2022. The patient was placed on postoperative adjuvant antiestrogen therapy with aromatase inhibitor, which she began in August 2022. The patient returns to my [facility] breast surgical oncology clinic at this time. [...] as BI-RADS category 2/benign findings/stable by the [facility] breast radiology staff. Heterogeneously dense breast tissue [...] without extranodal extension], 95% ER positive, 95% KY positive, HER2 negative, intermediate grade invasive mammary carcinomawith lobular features of the 5:00 position of the right breast [3.2 cm FRN]; Oncotype DX recurrencescore 23), which was initially diagnosed in late December 2021, and for which the patient underwent a right total mastectomy procedure and right axillary sentinel lymph node mapping and biopsy procedure (by nh) and placement of a right-sided tissue transportation maintenance worker (by Dr. Sharath Alvarado of [facility] Plastic surgery) at [facility] on 04/10/2022. The patient has a personal history of NEGATIVE comprehensive genetic testing for any form of hereditary breast cancer syndrome, as based upon GoBeMe 77- gene CancerNext-Expanded+RNA panel testfrom blood collected on 03/04/2022. 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 This note was dictated using [employer] voice recognition software. Attempts at proofreading were made, but errors may occasionally still occur. I have reviewed Malia Nixonman medical, surgical and other pertinent history in detail, and have updated medication and allergy information in the computerized patient record. REFERRING/PRIMARY PROVIDER(S) -Referring Provider for today's consult: Tucker Haywood MD -Primary Care Provider: Tucker Haywood documented in this encounterU [facility] History of Present illness Narrative* Alicia Gama - 01/27/2023 1:40 PM EDT Patient offered a medical hand sander for sensitive exam. Pt declined documented in this encounterCity [facility]04-12-[facility] History of Present illness Narrative* Kathe Liu RN - 12/09/2022 12:30 PM EDT Reporting several sharp shooting pain in R lateral chest weekly, most recently was excruciating forabout 30 seconds. * ORALIA Sheikh - 12/09/2022 12:30 PM EDT Patient was evaluated by myself and Dr. Alvarado. Subjective: S/p right mastectomy ([place]) 04/10/2022 S/p right breast reconstruction with transportation maintenance worker 04/10/2022 S/p right breast implant exchange, left [...] or concerns before your next visit * Sharath Alvarado MD - 12/09/2022 12:30 PM EDT Plastic Surgery Attending Addendum I independently saw and examined Ms. Cook and have personally reviewed their chart. I have reviewed the note by Andreina BARTON and made revisions to the history, [...] months. A total of 15 minutes of khhf-gn-jkro time was spent in this encounter, of which >50% was spent in counseling and coordination of care. Sharath Alvarado MD documented in this encounterOSU [facility] Instructions* Patient Instructions* Sharath Alvarado MD - 12/09/2022 12:30 PM EDT Follow up with Dr. Alvarado in 3 months documented in this encounterOSU [facility] Evaluation note * Encounter Date Diagnosis Assessment [...] questions answered and patient sent home stable. [facility] Other 02-08-2023 History of Present illness Narrative* Laura Oliveros - 10/07/2022 9:30 AM EST NOTE: VERIFY NAME, , ADDRESS FOR CLIENT(UPDATE CATAPULT) Bra Prosthesis Note Malia Cook is being seen today at [facility] by Laura Oliveros for a Breast Issue. [...] Final cup size: C Prosthesis/Form: Size: 4 airfield services officer Additional Visit information Client Visit: pre/post op___ [...] for best volume and decided the osorio airfield services officer in sz 4 was perfect in bra. [...] BG bras, 1 Vidal 220 sz 4 airfield services officer Product ordered: None DID YOU RELEASE CARE INSTRUCTIONS - Yes documented in this encounterCity Hospital02-08-2023 History of Present illness Narrative* Arnaldo Alejandro Escobedo, BUSINESS DEVELOPMENT ASSISTANT-BUILD AND RELEASE MANAGER - 10/07/2022 8:30 AM EST Images from the original note were not included. RADIATION ONCOLOGY FOLLOW-UP NOTE Date of Service: 10/07/2022 PATIENT IDENTIFICATION: Malia Cook is a 62 y.o. 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 She enjoyed a wonderful trip to [place] and is headed back out on vacation [...] prognostic stage IB (pT2 pN1a) Grade 2 ER+(95%)/KY+(95%)/Her-2 negative invasive ductal cancer of the RIGHT [...] hesitate to contact me with any questions. Arnaldo Escobedo, MSN, CARTER [facility], Radiation Oncology [phone] Office [email or web address] * Eder Orosco RN - 10/07/2022 8:30 [...] Cook was offered and declined a Medical Felting Machine Operator for this exam/procedure/test 10/07/2022. Report given to CARTER North RN documented in this encounterCity Hospital02-08-2023 Instructions* Patient Instructions* CARTER Coates - 10/07/2022 8:30 AM EST Your Radiation Oncology Team Advanced Practice Provider: CARTER North Primary Nurses: DARLENE MoreauN, RN; AUBREY Galvin, RN; DARLENE SanchezN, RN; AUBREY Fagan, RN We are available to take calls at [phone] Wednesday-Wednesday 8:00am-4:30pm. Please allow 24 hours for non-urgent return phone calls and MyChart messages. During non-business hours and holidays, phone calls will be managed by after- hours [facility]/Jose Roberto RN's. Please allow at least 10 business [...] the take-back program closest to you @ [email or web address] under the COLLECTION SITE LOC TODAY'S SUMMARY -You have no evidence of recurrence on today's exam -Continue taking your anti-estrogen therapy (anastrozole) -Continue skin care with moisturizer at least once per day and when sunscreen (>50 spf) when outdoors. -Keep appointments as scheduled with your other providers -Your next mammogram is scheduled for December 2022 -Follow up with HERB (CARTER North) or MD in about 12 months -Please do not hesitate to call [phone] if you have any questions or concerns prior to your next visit. -Zarate symptoms to look out for: new lumps or bumps on your chest/breast, under your armpit or by your collarbones; difficulty breathing; chest pains; new pains in bony areas that persist and/or wake you up in the middle of the night; headaches that persist; weakness in the extremities; falls -Thank you! CARTER North [facility] Radiation Oncology [phone] documented in this encounterOSU [facility] History of Present illness Narrative* CARTER Coates - 09/04/2022 9:30 AM EST Images from the original note were not included. RADIATION ONCOLOGY ON-TREATMENT VISIT Date of service: 09/04/2022 ID: Malia Cook is a 61 y.o. 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 Arnaldo Escobedo, MSN, BUSINESS DEVELOPMENT ASSISTANT-BUILD AND RELEASE MANAGER [facility], Radiation Oncology [phone] Office [email or web address] I saw and independently examined this patient today. I discussed my findings and the therapeutic plan with the TIMBER FELLER. I agree with the TIMBER FELLER's history, physical examination, and medical decisions as outlined. Deepti Gomez M.D., Ph.D. Metal Mold Dresser in Radiation Oncology Pager: [phone] * Lizzeth [...] Cook was offered and declined a Medical Felting Machine Operator for this exam/procedure/test 09/04/2022. Report given to CARTER North RN documented in this encounterCity Hospital01-06-2023 Instructions* Patient Instructions* CARTER Coates - 09/04/2022 9:30 AM EST Your Radiation Oncology Team Doctor: Deepti Gomez MD Advanced Practice Provider: CARTER North Primary Nurses: AUBREY Moreau, RN; AUBREY Galvin, RN; AUBREY Sanchez, RN We are available to take calls at [phone] Wednesday-Wednesday 8:00am-4:30pm. Please allow 24 hours for non-urgent return phone calls and MyChart messages. During non-business hours and holidays, phone calls will be managed by after- hours [facility]/Jose Roberto RN's. Please allow at least 10 business [...] the take-back program closest to you @ [email or web address] under the COLLECTION SITE SCIENTIFIC WRITER tab. Today's Summary: -You have completed radiation today! -Your side effects, particularly skin irritation and fatigue, may get slightly worse before they get better. This is normal -These are signs to call us regarding worsening skin irritation: Peeling of the skin; blistering; discharge/sticky material on your skin; bleeding of the skin with light touching, pain not relieved with ikvq-kef-eaxmizc medications -You will have a follow-up to check your skin with the nurses about 1 week after you finish radiation therapy. This is okay to do over the phone, but if you are feeling like you prefer to be seen in person please give us a call and let us know. -Return to see MD or HERB about 4-6 weeks after radiation -Continue your current skin care routine until at least the 1 month follow-up visit -If you have been prescribed anti-estrogen therapy for your breast cancer, you can start this 1-2 weeks after you complete radiation therapy. -Please don't hesitate to call [phone] with any concerns prior to your next visit -Thank you! Deepti Gomez MD & CARTER North [facility] Radiation Oncology [phone] documented in this encounterCity Hospital12-20-2022 History of Present illness Narrative* CARTER Coates - 08/18/2022 1:30 PM EST Images from the original note were not included. RADIATION ONCOLOGY ON-TREATMENT VISIT Date of service: 08/18/2022 ID: Malia Cook is a 61 y.o. 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 Arnaldo Escobedo, MSN, BUSINESS DEVELOPMENT ASSISTANT-BUILD AND RELEASE MANAGER [facility], Radiation Oncology [phone] Office [email or web address] I saw and independently examined this patient today. I discussed my findings and the therapeutic plan with the TIMBER FELLER. I agree with the TIMBER FELLER's history, physical examination, and medical decisions as outlined. Deepti Gomez M.D., Ph.D. Metal Mold Dresser in Radiation Oncology Pager: [phone] * Cara García RN - 08/18/2022 1:30 PM EST On Treatment Visit (RIGHT Chest Wall 6/16 Fractions; 1596/4256 cGy ) Pain Assessment: Presence [...] Malia Cook was not offered a Medical Felting Machine Operator for this exam/procedure/test 08/18/2022. Report given to Arnaldo Escobedo APRN-EDEN García RN documented in this encounterCity Hospital12-16-2022 History of Present illness Narrative* Saw Wheatley MD - 08/14/2022 1:40 PM EST Images from the original note were not included. RADIATION ONCOLOGY ON-TREATMENT VISIT Date of service: 08/14/2022 ID: Malia Cook is a 61 y.o. 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 I discussed my findings and the therapeutic plan with the Resident. I agree with the Resident's history, physical examination, and medical decisions as outlined. Deepti Gomez M.D., Ph.D. Metal Mold Dresser in Radiation Oncology Pager: [phone] * Eder Orosco RN - 08/14/2022 1:40 [...] Cook was offered and declined a Medical Felting Machine Operator for this exam/procedure/test 08/14/2022. Report given to Dr. Dioni Orosco, RN documented in this encounterCity Hospital12-14-2022 History of Present illness Narrative* Indu Ricardo PA-C - 08/12/2022 12:45 PM EST Patient was evaluated by myself and Dr. Alvarado. Subjective: S/p right mastectomy ([place]) 04/10/2022 S/p right breast reconstruction with transportation maintenance worker 04/10/2022 S/p right breast implant exchange, left [...] before your next visit documented in this [facility]12-14-2022 Instructions* Patient Instructions* Andreina Padilla PA-C - 08/12/2022 12:45 PM EST Return in November 2022 documented in this [facility]12-14-2022 History of Present illness Narrative* Anjelica Gonzales RN - 08/12/2022 11:00 AM EST Patient offered a medical hand sander for sensitive exam. Pt declined. * Mel Giron MD - 08/12/2022 11:00 AM EST Nando Cook is a 61 y.o. female who presents to the [facility] [place] [facility] for Chief Complaint Patient presents with Follow-up Referring Provider: Marlene Olivas, APR* Breast Surgeon: Dr. Smallwood Plastic Surgeon: Dr. Alvarado Radiation Oncologist: Dr. Gomez PCP: Dr. Tucker Haywood Date of Diagnosis: 01/20/2022 Encounter Date: 08/12/2022 Diagnosis: Stage IB T2cN0 invasive carcinoma with mixed ductal and lobular features, well differentiated , ER positive (>90%), KY positive (80-90%), HER-2 equivocal (IHC 2+), FISH negative (HER2/CEP17 1.8, HER-2 copy number 3.73) Pathologic: [id number](sn), Oncotype 23 Current Treatment: TBD Pertinent History [...] mixed ductal and lobular features ER >90%, KY 80-90%, HER 2 IHC: 2+, FISH ratio: [...] cm. 1 lymph node with macrometastatic carcinoma. [id number]. 08/11/22: Started adjuvant radiation Pertinent Physical Exam: [...] with osteopenia. Other Data: Surgical Pathology Report, [id number], 04/10/2022 Pathologic Diagnosis A. Frontier lymph node #1, right axilla, excision: 1 lymph node with macrometastatic carcinoma by H&E and AE1/3 B. Frontier lymph node #2, right axilla, excision: 1 [...] 3.73) per outside report Specimen in which ER/KY/HER2 performed: Previous outside biopsy [id number] pTNM: pT2 pN1a Additional findings: Biopsy site [...] Stage IB (cT2, cN0, cM0, G1, ER+, KY+, HER2-) - Pathologic stage from 04/10/2022: Stage IB (pT2, pN1a(sn), cM0, G2, ER+, KY+, HER2-, Oncotype DX score: 23) Recommendations: 1. [...] Per patient preference, radiation was deferred and gpogscz81/13/22. -Underwent right breast implant exchange and left [...] Scheduled 09/24/22 RTC 4 months to see HERB for evaluation and toxicity check. All of the patient's questions were addressed. They were given our office contact information to reach us with further questions. Documented by Courtney Chahal, for Dr. Mack MD on 08/12/2022 at 11:36 AM. All medical record entries made by the Scribaleksandra were at my direction and personally dictated by me, Dr. Mack MD. I have reviewed the chart and agree that the record accurately reflects my personal performance of the history, physical exam, assessment and plan. I have also personally directed, reviewed, and agree with the discharge instructions. Mel Giron MD, MEd Metal Mold Dresser of Internal Medicine Division of Medical Oncology [facility] documented in this encounterCity [facility]12-14-2022 Instructions* Patient Instructions* Anjelica Gonzales RN - [...] you @ https://takebackday.meir.gov under the COLLECTION SITE SCIENTIFIC WRITER tab. Never dispose of un-needed medications down the sink or toilet. Instead, crush the medication and mix with damp coffee grounds or cat litter, place in a sealed plastic freezer bag, and dispose of in your regular trash. Your Medical/Oncology Team Doctor: Mel Giron MD Nurse Practitioner: Arnaldo Land APRN-EDEN Primary Nurses: Anjelica, DARLENEN, RN, Dayami, RN, BSN, OCN, Kelsie, RN, BSN, OCN We are available to take calls Wednesday-Wednesday 8:00am-4:30pm. During non-business hours and holidays phone calls will be managed by after-hours [facility] Roberto RN's. Please allow at least 10 business days for your team to complete any paperwork. When requesting medication refills, please try to provide as much notice as possible (5 days) in order to ensure that you do not run out of medication. documented in this [facility]12-02-2022 History of Present illness Narrative* Saw Wheatley MD - 07/31/2022 12:30 PM EST RADIATION ONCOLOGY FOLLOW UP VISIT DOS: 07/31/2022 REFERRING PROVIDER: Tucker Haywood MD OTHER PROVIDERS: Dr. Smallwood, Dr. Alvarado, Dr. Giron IDENTIFICATION: Malia Cook is a 61 y.o. 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 01/15/22: Bilateral diagnostic mammogram w adriel & Right breast US: macro lobulated spiculated [...] feature, grade 1 - ER positive (>90%), KY positive (80-90%), HER2 (2+) by IHC, FISH [...] proven malignancy) 03/04/22: Establish care with Dr. Alvarado of Plastics. Patient stated that they wish to proceed with: right mastectomy and immediate breast reconstruction with tissue transportation maintenance worker Seen by Genetic counselor, SIOMARA Scott- does not have any pathogenic variants (mutations) in any of the genes on this panel. 03/20/[address] Jason Giron to establish care 04/10/22: Right breast mastectomy. Pathology revealed invasive ductal carcinoma, grade 2, measuring4.2 cm. 1 lymph node with macrometastatic carcinoma. [id number]. Oncotype 23. 04/22/22: Follow up with Dr. Smallwood. No additional surgery recommended. 05/13/22: Follow up with Dr. Giron. Chemo not recommended due to Oncotype 23. 06/05/22: Follow up with Dr. Gomez. Recommends PMRT given positive lymph node. Patient desiring time to think about further treatment. Interval HIstory: 06/29/22: Undergoes exchange of right tissue transportation maintenance worker with a permanent implant and left breast reduction by Dr. Alvarado. 07/08/22: Follow up with plastic surgery. Found [...] 04/01/2022 MPV 11.6 04/01/2022 Pathologic Diagnosis A. Frontier lymph node #1, right axilla, excision: 1 lymph node with macrometastatic carcinoma by H&E and AE1/3 B. 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 I discussed my findings and the therapeutic plan with the Resident. I agree with the Resident's history, physical examination, and medical decisions as outlined. Malia Cook is a 61 y.o. 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 Deepti Gomez M.D., Ph.D. Metal Mold Dresser in Radiation Oncology Pager: [phone] * Eder Orosco RN - 07/31/2022 12:30 [...] or concerns. Report given to Dr. Dioni Coko was offered and declined a Medical Felting Machine Operator for this exam/procedure/test 07/31/2022. Eder Orosco RN documented in this [facility]11-09-2022 History of Present illness Narrative* Andreina Padilla PA-C - 07/08/2022 9:45 AM EST Patient was evaluated by myself and Dr. Alvarado. Subjective: S/p right mastectomy ([place]oj[place]) 04/10/2022 S/p right breast reconstruction with transportation maintenance worker 04/10/2022 S/p right breast implant exchange, left [...] 4 wks postop. No formal exercise or spanish literature professor. - We discussed that asymmetries are likely due to swelling post-operatively. These will settle over8-12 weeks. We can discuss if revisions are needed at the next office visit - RTC 6 weeks - Please call our clinic with any questions or concerns before your next visit. documented in this [facility]11-09-2022 Instructions* Patient Instructions* Sharath Alvarado MD - 07/08/2022 9:45 AM EST Follow up with Dr. Alvarado in 6 wks documented in this [facility]10-19-2022 History of Present illness Narrative* Kathe Liu [...] ([place]) 04/10/2022 S/p right breast reconstruction with transportation maintenance worker 04/10/2022 She presents preoperatively for planned: Right [...] carcinoma with mixed ductal and lobular features, ER+/KY+/HER2- ;ONCOTYPE 23 Past Surgical History: Procedure Laterality [...] [facility] MAIN OR 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 BREAST TISSUE ENGINEERING WRITER INCLUDING SUBSEQUENT EXPANDERS Right 04/10/2022 Laterality: Right; Surgeon: Sharath Alvarado MD; Location[facility]T MAIN OR CORE BIOPSY OF THE BREAST [...] swollen legs [] obesity (BMI>25) [] acute TN [] CHF <1 month [] sepsis (<1 month) [] Lung disease including PNA (<1 month) [] Abnormal pulmonary fxn (COPD) [] Currently on bedrest [] OCP or HRT [] or (<1 month) [] Hx unexplained stillborn, spontaneous (>3), premature with toxemia or growth restricted infant 2 points each: [x] Age 60-74 [] Arthroscopic surgery [x] Malignancy hx [x] Major surgery planned (>45 min) [] Laparoscopic surgery (>45 min) [] Patient confined to bed (>72 hrs) []Immobilizing plaster cast [] Central Venous Access 3 points each: [] Age >75 [] Hx DVT/PE [] Family hx of thrombosis [] Factor V Leiden [] Prothrombin [id number] [] Elevated serum homocysteine [] Positive Lupus [...] consent form. Implant Ordered. documented in this [facility]10-19-2022 Instructions* Patient Instructions* Caryn Noe PA-C - 06/17/2022 3:00 PM EDT Images from the original note were not included. *Please call the office at [phone] if any cold, flu like or other [...] 3. DO NOT wear lotion, makeup, nail russian, contact lens, or perfume/cologne. 4. DO NOT [...] - No repetitive arm movements, including all spanish literature professor, for 6 weeks. - No bouncing activities [...] the Plastics and Reconstructive Surgery office at [phone] promptly with any of the following concerns: [...] the take-back program closest to you at https://takebackday.SingleFeed.gov under the COLLECTION SITE SCIENTIFIC WRITER tab. Never dispose of un-needed medications down [...] arm, or other area Date Last Reviewed: 12/29/201519992368-0499 [employer]. [address] [place] [id number]. All rights reserved. This information is not [...] time of your procedure. documented in this encounterCity Hospital09-21-2022 History of Present illness Narrative* Sharath Alvarado MD - 05/20/2022 9:00 AM EDT Reason for Visit H/o right breast cancer S/p right mastectomy (Selin), 04/10/2022 S/p right breast reconstruction with transportation maintenance worker, 04/10/2022 Postoperative evaluation Subjective The patient underwent [...] the left because of significant asymmetry between [place] and reconstructed breast, and on the right [...] surgery. A total of 15 minutes of nlbd-yo-edrz time were spent in this encounter, of which >50% was spentin counseling and/or coordination of care. * Candi Luther RN - 05/20/2022 9:00 AM EDT Patient is doing well, S/p Right breast reconstruction with tissue expanders on 04/10/22. Per order for serial tissue expansions, Right breast tissue transportation maintenance worker ports accessed per protocol. 100ml salineinstilled into Right tissue expanders for a total volume of 380/350 ml. Good capillary refill notedthroughout the expansion. Expansion tolerated well. Band-aid applied to injection sites, no bleeding noted. documented in this encounterCity Hospital09-21-2022 Instructions* Patient Instructions* Sharath Alvarado MD - 05/20/2022 9:00 AM EDT - Schedule surgery (left breast reduction, right breast implant exchange) - Return at preop [facility] History of Present illness Narrative* Dayami Boggs RN - 05/13/2022 8:00 AM EDT Patient offered a medical hand sander for sensitive exam. Pt declined * Arnaldo Land APRN-EDEN - 05/13/2022 8:00 AM EDT Nando Cook is a 61 y.o. female who presents to the [facility] for Chief Complaint Patient presents with Follow-up Follow-up visit and Oncotype review Referring Provider: Marlene Olivas, APR* Breast Surgeon: Dr. Smallwood Plastic Surgeon: Dr. Alvarado Radiation Oncologist: Dr. Gomez PCP: Dr. Tucker Haywood Date of Diagnosis: 01/20/2022 Encounter Date: 05/13/2022 Diagnosis: Stage IB T2cN0 invasive carcinoma with mixed ductal and lobular features, well differentiated , ER positive (>90%), KY positive (80-90%), HER-2 equivocal (IHC 2+), FISH negative (HER2/CEP17 1.8, HER-2 copy number 3.73) Pathologic: [id number](sn), Oncotype 23 Current Treatment: TBD Pertinent History [...] mixed ductal and lobular features ER >90%, KY 80-90%, HER 2 IHC: 2+, FISH ratio: [...] cm. 1 lymph node with macrometastatic carcinoma. [id number]. Pertinent Physical Exam: Vitals: BP 129/80 (BP [...] to review. Other Data: Surgical Pathology Report, [id number], 04/10/2022 Pathologic Diagnosis A. Frontier lymph node #1, right axilla, excision: 1 lymph node with macrometastatic carcinoma by H&E and AE1/3 B. Frontier lymph node #2, right axilla, excision: 1 [...] 3.73) per outside report Specimen in which ER/KY/HER2 performed: Previous outside biopsy [id number] pTNM: pT2 pN1a Additional findings: Biopsy site [...] Stage IB (cT2, cN0, cM0, G1, ER+, KY+, HER2-) - Pathologic: pT2, pN1a(sn), cM0, ER+, KY+, HER2- Recommendations: 1. Breast Cancer: -Right breast [...] bone thinning. -Mammogram and follow-up with Dr. Smallowod scheduled 02/02/23. -Saw Dr. Gomez for consultation in February. Will reach out regarding follow-up. -Following with Dr. Alvarado for tissue transportation maintenance worker fills. 2. Supportive Care -Reviewed patient education [...] information to reach us with further questions. Arnaldo Land APRN-EDEN I have seen and examined this patient independently of Arnaldo Land APRN. I reviewed Nando's pathology and Oncotype in detail. She has a tL6rP3p(sn) hormone positive, HER-2 negative invasive ductal carcinoma. [...] a well healing right mastectomy site withtissue transportation maintenance worker reconstruction. No significant erythema, no exudate. Otherwise, [...] discharged from clinic. Mel Giron MD, MEd Metal Mold Dresser of Internal Medicine Division of Medical Oncology [facility] documented in this encounterCity Hospital2022 Instructions* Patient Instructions* Dayami Boggs RN [...] you @ https://takebackday.meir.gov under the COLLECTION SITE SCIENTIFIC WRITER tab. Never dispose of un-needed medications down the sink or toilet. Instead, crush the medication and mix with damp coffee grounds or cat litter, place in a sealed plastic freezer bag, and dispose of in your regular trash. Your Medical/Oncology Team Doctor: Mel Giron MD Nurse Practitioner: Arnaldo Land APRN-BUILD AND RELEASE MANAGER Primary Nurses: DARLENE DejesusN, RN, Dayami RN, BSN, OCN, Kelsie, RN, BSN, OCN We are available to take calls Wednesday-Wednesday 8:00am-4:30pm. During non-business hours and holidays phone calls will be managed by after-hours [facility]/Jose Roberto RN's. Please allow at least 10 business days for your team to complete any paperwork. When requesting medication refills, please try to provide as much notice as possible (5 days) in order to ensure that you do not run out of medication. documented in this encounterCity Hospital08-31-2022 History of Present illness Narrative* Candi [...] for serial tissue expansions, Right breast tissue transportation maintenance worker ports accessed per protocol. 60ml saline instilled into Right tissue expanders for a total volume of 90/350 ml. Good capillary refill noted throughout the expansion. Expansion tolerated well. Band-aid applied to injection sites, no bleeding noted. She will plan for continued tissue expansion every 1-2 weeks then will follow up with Dr. Alvarado to discuss the next step in reconstruction. [...] current chemo or radiation. documented in this [facility] History of Present illness Narrative* CHRISTIAN [...] Date Output mL mL mL mL * Sharath Alvarado MD - 04/22/2022 3:15 PM EDT Reason for Visit H/o right breast cancer S/p right mastectomy ([place]jesica), 04/10/2022 S/p right breast reconstruction with transportation maintenance worker, 04/10/2022 Postoperative evaluation Subjective Presents for previously scheduled f/u. No c/o. Review of systems: No fevers/chills. No wound symptoms such as redness, swelling, increasing pain, or drainage. No CP/SOB. Objective Right breast: incision CDI, no erythema or fluctuance 1 drain with serosanguinous output Assessment/Plan DC drain Commence tissue expansion FU on RN schedule for tissue expansion Activity recommendations reviewed * Andreina Garcia RN - 04/22/2022 3:15 PM EDT Per order for serial expansion, right breast tissue transportation maintenance worker port accessed per protocol. 30 ml saline instilled transportation maintenance worker for a total volume of 30 ml/350ml. [...] not hesitate to call the office at [phone] with any questions or concerns. Please always call instead of Tamionhart if there are any urgent concerns. [employer] messages are only received during office hours. documented in this [facility]08-24-2022 Instructions* Patient Instructions* Andreina Garcia RN - 04/22/2022 3:15 PM EDT [...] not hesitate to call the office at [phone] with any questions or concerns. Please always [...] not hesitate to call the office at [phone] with any questions or concerns. Please always call instead of MyChart if there are any urgent concerns. [employer] messages are only received during office hours. documented in this encounterCity Hospital08-24-2022 History of Present illness Narrative* Stuart Smallwood MD - 04/22/2022 12:45 PM EDT FOLLOW UP NOTE FOR [facility] BREAST SURGICAL ONCOLOGY CLINIC: DR. SMALLWOOD: HISTORY [...] as of 02/24/2022. The patient lives in [place], [place]. ################################################################################ ############################################ The patient has a personal history of a RIGHT breast cancer process (pT2 [4.2 cm], pN1 [1/3 right axillary lymph nodes positive for macrometastatic carcinoma measuring 3 mm, without extranodal extension], 95% ER positive, 95% KY positive, HER2 negative, intermediate grade invasive mammary carcinomawith lobular features of the 5:00 position of the right breast [3.2 cm FRN]; Oncotype DX recurrencescore PENDING), which was initially diagnosed in late December 2021, and for which the patient underwenta right total mastectomy procedure and right axillary sentinel lymph node mapping and biopsy procedure (by nh) and placement of a right-sided tissue transportation maintenance worker (by Dr. Sharath Alvarado of [facility] Plastic surgery) at [facility] on 04/10/2022. The patient has a personal history of NEGATIVE comprehensive genetic testing for any form of hereditary breast cancer syndrome, as based upon [employer] 77- gene CancerNext-Expanded+RNA panel testfrom blood collected on 03/04/2022. 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 ################################################################################ ############################################ The patient is most recent outside prior breast imaging was performed at [facility] in [place], [place], including bilateral diagnostic digital mammogram and right breast ultrasound on 01/15/2022. On 02/21/2021, the patient underwent a 12 lead EKG through the [facility] in [place], [place].This showed normal sinus rhythm with a ventricular rate of 69 beats per minute. They stated: Impression: SINUS RHYTHM WITH SHORT KY. NONSPECIFIC T WAVE ABNORMALITY. ABNORMAL ECG. . On 04/02/2021, the patient underwent Cardiopulmonary Exercise Test (CPET) at the [facility], in [place], [place]. They stated: Summary: In summary, in [...] right breast [3.2 cm FRN] at [facility] in [place], [place]. The final pathology from 01/20/2022 showed low-grade invasive carcinoma with mixed ductal and lobular features, measuring 1.9 cm in greatest dimension, which was found to be >90% ER positive, 80-90% KY positive, and HER2/lizzette negative. On 04/01/2022, the patient's outside pathology was reviewed by Dr. Spears of [facility] breast pathology. They stated: Pathologic Diagnosis: Outside Slides: [id number] (01/20/22): A. Right breast spiculated mass at [...] in an addendum. Dr. Adams has reviewed real estate representative slides. at 1735. . On 02/18/2022, the patient's outside breast imaging was reviewed by Dr. Biju Blum of [facility] breast Radiology. They stated: EXAM: BREAST IMAGING [...] with spiculated margins and associated vascular flow. [facility] measures the mass at 4.5 x [...] OR DRUG EFFECTS. Confirmed by Jesusita Hurt ([id number]) on 02/26/2022 5:37:03 AM. . On 02/24/2022, [...] patient be seen by 1 of the [facility] Plastic Surgeons. We discussed the importance of having the patient be seen by 1 of the [facility] breast medical oncologist. We discussed the importance of having the patient be seen by 1 of the [facility] breast radiation oncologist. We discussed obtaining repeat [...] having the patient be evaluated by the [facility] clinical cancer genetics service to discuss comprehensive [...] patient contact information for our nurse practitioner, Prakash Santiago, and have instructed the patient to remain in contact with our nurse practitioner, Prakash Santiago, through [employer], for any future upcoming questions or concerns that they have regarding their management or follow-up in our [facility] breast Surgical Oncology Clinic. . On 02/24/2022, the patient underwent right breast ultrasound and right axillary ultrasound at [facility]. This was read by Dr. Wei Robertson of [facility] breast radiology. They stated: EXAM: US BREAST LIMITED UNILATERAL RIGHT, US AXILLA FOR MAMMOGRAPHY RIGHT, 02/24/2022 10:44 AM (accession [id number]), 02/24/2022 10:45 AM (accession [id number]). CLINICAL INDICATIONS: New right breast malignancy 5 [...] patient underwent a bilateral breast MRI at [facility]. This was read by Dr. Wei Robertson of [facility] breast radiology. They stated: FINDINGS: Amount of [...] 03/04/2022, the patient was seen by Dr. Sharath Alvarado of [facility] Plastic surgery. They stated: Plan: I discussed that the patient would be most suited to 2-stage implant-based reconstruction. After discussion, the patient stated that they wish to proceed with: right mastectomy and immediate breast reconstruction with tissue transportation maintenance worker. We will schedule/coordinate surgery and the patient [...] was seen by Dr. Deepti Gomez of [facility] breast Radiation Oncology. On 04/01/2022, the genetic counselor, Silverio Romero issued the following telephone encounter note int[facility]. They stated: We met with initially in the Clinical Cancer Genetics Program on 03/04/2022 for genetic risk assessment and counseling. We spoke by telephone on 03/13/2022 to discuss the negative results of her STAT genetic testing. Rudymeseretmartin spoke by telephone on 04/01/22 for follow-up genetic counseling to discuss the results of hergenetic testing. Genetic counseling graduate civil engineer, Halle Dowell, observed this encounter. Ms. Cook at another appointment when I called to discuss results. Should she have any questions about the results she can contact me directly at [phone]. RESULT AND INTERPRETATION: Based upon s personal and family history, she underwent multi-gene panel testing for variants in genes reported to be associated with hereditary cancer predisposition. 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 This 77-gene panel test is called ClearTax+RNA and was performed by [employer]. The genes that were tested are listed below: AIP, ALK, APC, ELEUTERIO, AXIN2, BAP1, BARD1, BLM, BMPR1A, BRCA1, BRCA2, BRIP1, CDC73, CDH1, CDK4, CDKN1B, CDKN2A, CHEK2, CTNNA1, DICER1, EGFR, EGLN1, EPCAM, FANCC, FH, FLCN, GALNT12, GREM1, HOXB13, KIF1B,KIT, LZTR1, MAX, MEN1, MET, MITF, MLH1, MSH2, MSH3, MSH6, MUTYH, NBN, NF1, NF2, NTHL1, PALB2, PDGFRA, PHOX2B, PMS2, POLD1, POLE, POT1, BIOUM5T, PTCH1, PTEN, RAD51C, RAD51D, RB1, RECQL, RET, SDHA, SDHAF2, SDHB, SDHC, SDHD, SMAD4, SMARCA4, SMARCB1, SMARCE1, STK11, SUFU, PDVJ460, TP53, TSC1, TSC2, VHLand XRCC2. Refer to [...] sentinellymph node mapping and biopsy procedure (by nh) and placement of a right-sided tissue transportation maintenance worker (by Dr. Sharath Alvarado of [facility] Plastic surgery). The final pathology from 04/10/[address] Antelmo Adams of [facility] breast pathology. This showed: (1) The right [...] car cinoma. The patient returns to my [facility] breast surgical oncology clinic at this time. [...] present for the evaluation (Simin Lemos and Prakash Santiago). The patient came to the clinic exam room with her . The patient's right mastectomy/transportation maintenance worker reconstruction site looks fine. There is no evidence of infection, drainage, or fluid collection. The patient has no evidence of recurrent disease within the skin or within the soft tissues of the patient's right mastectomy/transportation maintenance worker reconstruction site. The patient's right-sided surgical MOLLY drains are being managed by Dr. Sharath Alvarado of [facility] Plastic surgery. The patient has no discrete, [...] without extranodal extension], 95% ER positive, 95% KY positive, HER2 negative, intermediate grade invasive mammary carcinomawith lobular features of the 5:00 position of the right breast [3.2 cm FRN]; Oncotype DX recurrencescore PENDING), which was initially diagnosed in late December 2021, and for which the patient underwenta right total mastectomy procedure and right axillary sentinel lymph node mapping and biopsy procedure (by nh) and placement of a right-sided tissue transportation maintenance worker (by Dr. Sharath Alvarado of [facility] Plastic surgery) at [facility] on 04/10/2022. The patient has a personal history of NEGATIVE comprehensive genetic testing for any form of hereditary breast cancer syndrome, as based upon [employer] 77- gene CancerNext-Expanded+RNA panel testfrom blood collected on 03/04/2022. HOWEVER, the patient has a personal history of pathogenic mutation in the MUTYH gene ([id number]; c.1187G>A; p.G396D), as based upon GoBeMe 77-gene CancerNext-Expanded+RNA panel test from blood collected [...] or overall survival (Rand V, Inocente BF, Zurrida S, Viale G, Luini A, Dilciai P, Baratella P, Chifu C, Marilyn M, Neva M, Gentilini O, [...] controlled trial. Lancet Oncol 2013; 14(4):297-305 [doi: 10.1016/R7858-4148(13)22374-5]). Therefore, as based upon the prior The International Breast Cancer Study Group (IBCSG) 23- Clinical Trial Study, I wouldconsider extrapolating the above study results to this patient, and I would conclude that there would be no added benefit in this patient to perform a completion right axillary lymph node dissection at a subsequent time. Therefore, I would not recommend a completion right axillary lymph node dissection procedure. The patient will continue her ongoing postoperative follow-up with Dr. Sharath Alvarado of [facility] Plastic surgery for management of her right-sided surgical MOLLY drains. We will initiate the process of sending off Oncotype DX recurrence score testing on the patient's right breast cancer process. We will subsequently have the patient be evaluated by 1 of the [facility] breast medical oncologist to discuss postoperative adjuvant [...] patient contact information for our nurse practitioner, Prakash Santiago, andhave instructed the patient to remain in contact with our nurse practitioner, Prakash Santiago,through [employer], for any future upcoming questions or concerns that they have regarding their management or follow-up in our [facility] breast Surgical Oncology Clinic. This note was dictated using Chumby voice recognition software. Attempts at proofreading were made, but errors may occasionally still occur. I have reviewed Malia Nixonman medical, surgical and other pertinent history in detail, and have updated medication and allergy information in the computerized patient record. REFERRING/PRIMARY PROVIDER(S) -Referring Provider for today's consult: Tucker Haywood MD -Primary Care Provider: Tucker Haywood documented [facility] History of Present illness Narrative* CHRISTIAN Gabriel - 04/15/2022 12:45 PM EDT DRAIN LOG DRAIN # 1 Date Output 04/12 70 mL 8/15 170 mL /16 100 mL /17 65 mL DRAIN # 2 Date Output 14 20 mL /15 10 mL /16 13 mL /17 >11 mL DRAIN # Date Output mL mL mL mL DRAIN # Date Output mL mL mL mL DRAIN # Date Output mL mL mL mL DRAIN # Date Output mL mL mL mL * Alicia Smallwood PA-C - 04/15/2022 12:45 PM EDT Plastic & Reconstructive Surgery Progress Note Patient was evaluated by myself and Dr. Alvarado Reason for visit: Malia Cook is a 61 y.o. female with a history of right breast cancer. S/p right mastectomy and immediate reconstruction with placement of tissue transportation maintenance worker (no IOF), 04/10/2022 Postoperative assessment Subjective: Presents [...] s/p immediate reconstruction with placement of tissue transportation maintenance worker D/c drain #2 Continue drain #1 Continue antibiotics until all drains removed, refill if necessary No showering until all drains Continue surgical bra 22/03 x 4 weeks Activity restrictions reviewed- no arm abduction greater than 90 degrees or lifting over 5 pounds for 4 weeks post-op. Follow up with Dr. Alvarado in 1 week or sooner if any issues/concerns documented in this [facility]08-17-2022 Instructions* Patient Instructions* Alicia Smallwood PA-C - 04/15/2022 12:45 PM EDT Follow up next week [facility] History of Present illness Narrative* Stuart Smallwood MD - 04/15/2022 12:30 PM EDT FOLLOW UP NOTE FOR [facility] BREAST SURGICAL ONCOLOGY CLINIC: DR. SMALLWOOD: HISTORY [...] as of 02/24/2022. The patient lives in [place], [place]. 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 Sharath Alvarado of [facility] Plastic surgery) at [facility] on 04/10/2022. ################################################################# THE FINAL PATHOLOGY IS STILL PENDING AT THIS TIME. ################################################################# The patient has a personal history of NEGATIVE comprehensive genetic testing for any form of hereditary breast cancer syndrome, as based upon GoBeMe 77- gene CancerNext-Expanded+RNA panel testfrom blood collected on 03/04/2022. 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 ################################################################################ ############################################ The patient is most recent outside prior breast imaging was performed at [facility] in [place], [place], including bilateral diagnostic digital mammogram and right breast ultrasound on 01/15/2022. On 02/21/2021, the patient underwent a 12 lead EKG through the [facility] in [place], [place].This showed normal sinus rhythm with a ventricular rate of 69 beats per minute. They stated: Impression: SINUS RHYTHM WITH SHORT KY. NONSPECIFIC T WAVE ABNORMALITY. ABNORMAL ECG. . On 04/02/2021, the patient underwent Cardiopulmonary Exercise Test (CPET) at the [facility], in [place], [place]. They stated: Summary: In summary, in [...] right breast [3.2 cm FRN] at [facility] in [place], [place]. The final pathology from 01/20/2022 showed low-grade invasive carcinoma with mixed ductal and lobular features, measuring 1.9 cm in greatest dimension, which was found to be >90% ER positive, 80-90% KY positive, and HER2/lizzette negative. On 04/01/2022, the patient's outside pathology was reviewed by Dr. Spears of [facility] breast pathology. They stated: Pathologic Diagnosis: Outside Slides: [id number] (01/20/22): A. Right breast spiculated mass at [...] in an addendum. Dr. Adams has reviewed real estate representative slides. at [id number]. . On 02/18/2022, the patient's outside breast imaging was reviewed by Dr. Biju Blum of [facility] breast Radiology. They stated: EXAM: BREAST IMAGING [...] with spiculated margins and associated vascular flow. [facility] the mass at 4.5 x [...] OR DRUG EFFECTS. Confirmed by Jesusita Hurt ([id number]) on 02/26/2022 5:37:03 AM. . On 02/24/2022, [...] patient be seen by 1 of the [facility] Plastic Surgeons. We discussed the importance of having the patient be seen by 1 of the [facility] breast medical oncologist. We discussed the importance of having the patient be seen by 1 of the [facility] breast radiation oncologist. We discussed obtaining repeat [...] having the patient be evaluated by the [facility] clinical cancer genetics service to discuss comprehensive [...] patient contact information for our nurse practitioner, Prakash Santiago, and have instructed the patient to remain in contact with our nurse practitioner, Prakash Santiago, through [employer], for any future upcoming questions or concerns that they have regarding their management or follow-up in our [facility] breast Surgical Oncology Clinic. . On 02/24/2022, the patient underwent right breast ultrasound and right axillary ultrasound at [facility]. This was read by Dr. Wei Robertson of [facility] breast radiology. They stated: EXAM: US BREAST LIMITED UNILATERAL RIGHT, US AXILLA FOR MAMMOGRAPHY RIGHT, 02/24/2022 10:44 AM (accession [id number]), 02/24/2022 10:45 AM (accession [id number]). CLINICAL INDICATIONS: New right breast malignancy 5 [...] Known biopsy proven malignancy. Recommendation: Surgical excision whenclinically appropriate. Recommendation Laterality: Right. . . On 02/27/2022, the patient underwent a bilateral breast MRI at [facility]. This was read by Dr. Wei Robertson of [facility] breast radiology. They stated: FINDINGS: Amount of [...] 03/04/2022, the patient was seen by Dr. Sharath Alvarado of [facility] Plastic surgery. They stated: Plan: I discussed that the patient would be most suited to 2-stage implant-based reconstruction. After discussion, the patient stated that they wish to proceed with: right mastectomy and immediate breast reconstruction with tissue transportation maintenance worker. We will schedule/coordinate surgery and the patient [...] was seen by Dr. Deepti Gomez of [facility] breast Radiation Oncology. On 04/01/2022, the genetic counselor, Silverio Romero issued the following telephone encounter note inthe patient's [facility] electronic medical record chart. They stated: We met with initially in the Clinical Cancer Genetics Program on 03/04/2022 for genetic risk assessment and counseling. We spoke by telephone on 03/13/2022 to discuss the negative results of her STAT genetic testing. Tenzin spoke by telephone on 04/01/22 for follow-up genetic counseling to discuss the results of hergenetic testing. Genetic counseling graduate civil engineer, Halle Dowell, observed this encounter. Ms. Cook at another appointment when I called to discuss results. Should she have any questions about the results she can contact me directly at [phone]. RESULT AND INTERPRETATION: Based upon s personal and family history, she underwent multi-gene panel testing for variants in genes reported to be associated with hereditary cancer predisposition. 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 This 77-gene panel test is called [employer]+RNA and was performed by [employer]. The genes that were tested are listed below: AIP, ALK, APC, ELEUTERIO, AXIN2, BAP1, BARD1, BLM, BMPR1A, BRCA1, BRCA2, BRIP1, CDC73, CDH1, CDK4, CDKN1B, CDKN2A, CHEK2, CTNNA1, DICER1, EGFR, EGLN1, EPCAM, FANCC, FH, FLCN, GALNT12, GREM1, HOXB13, KIF1B,KIT, LZTR1, MAX, MEN1, MET, MITF, MLH1, MSH2, MSH3, MSH6, MUTYH, NBN, NF1, NF2, NTHL1, PALB2, PDGFRA, PHOX2B, PMS2, POLD1, POLE, POT1, GFPCJ1Z, PTCH1, PTEN, RAD51C, RAD51D, RB1, RECQL, RET, SDHA, SDHAF2, SDHB, SDHC, SDHD, SMAD4, SMARCA4, SMARCB1, SMARCE1, STK11, SUFU, EBRZ505, TP53, TSC1, TSC2, VHLand XRCC2. Refer to [...] sentinellymph node mapping and biopsy procedure (by nh) and placement of a right-sided tissue transportation maintenance worker (by Dr. Sharath Alvarado of [facility] Plastic surgery). The final pathology from 04/10/[address] rodriguezx xxxx of [facility] breast pathology. This showed: ################################################################# THE FINAL PATHOLOGY IS STILL PENDING AT THIS TIME. ################################################################# The patient returns to my [facility] breast surgical oncology clinic at this time. [...] present for the evaluation (Lore Patel and Prakash Santiago). The patient came to the clinic exam room with her and her sister. The patient's right mastectomy/transportation maintenance worker reconstruction site looks fine. There is no evidence of infection, drainage, or fluid collection. The patient has no evidence of recurrent disease within the skin or within the soft tissues of the patient's right mastectomy/transportation maintenance worker reconstruction site. The patient's right-sided surgical MOLLY drains are being managed by Dr. Sharath Alvarado of [facility] Plastic surgery. 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 Sharath Alvarado of [facility] Plastic surgery) at [facility] on 04/10/2022. ################################################################# THE FINAL PATHOLOGY IS STILL PENDING AT THIS TIME. ################################################################# ################################################################################ ############################################ ################################################################# THE FINAL PATHOLOGY IS STILL PENDING AT THIS TIME. ################################################################# The patient will continue her ongoing postoperative follow-up with Dr. Sharath Alvarado of [facility] Plastic surgery for management of her right-sided surgical MOLLY drains. We will initiate the process of sending off Oncotype DX recurrence score testing on the patient's right breast cancer process. We will subsequently have the patient be evaluated by 1 of the [facility] breast medical oncologist to discuss postoperative adjuvant therapy recommendations based upon her eventual Oncotype DX results withthe patient's biopsy-proven right breast cancer process. [facility] Bryantashleyoscar 04/22/2022, 12:45 p.m.. The patient will be [...] patient contact information for our nurse practitioner, Prakash Santiago, andhave instructed the patient to remain in contact with our nurse practitioner, Prakash Santiago,through [employer], for any future upcoming questions or concerns that they have regarding their management or follow-up in our [facility] breast Surgical Oncology Clinic. This note was dictated using Chumby voice recognition software. Attempts at proofreading were made, but errors may occasionally still occur. I have reviewed Malia Tito medical, surgical and other pertinent history in detail, and have updated medication and allergy information in the computerized patient record. REFERRING/PRIMARY PROVIDER(S) -Referring Provider for today's consult: Tucker Haywood MD -Primary Care Provider: Tucker Haywood [facility] Note* Nursing Notes - Ragini Galvez RN - 04/11/2022 9:52 AM EDT Patient left with all belongings. No other needs at this time. SO states understanding of drain care, Rx, and AVS. Provided drain care supplies and an extra bra. Patient left in WC with COMMISSION ASSOCIATE to personal car driven by SO. Ragini Galvez RN [facility]08-13[facility] Miscellaneous Notes* Nursing Notes - Ragini Galvez RN - 04/11/2022 9:52 AM EDT Patient left with all belongings. No other needs at this time. SO states understanding of drain care, Rx, and AVS. Provided drain care supplies and an extra bra. Patient left in WC with COMMISSION ASSOCIATE to personal car driven by SO. Ragini [...] taught in the clinic. Ragini Galvez RN * Nursing Notes - [...] portion of the case performed by the [facility] Breast Surgical Oncology Service. PREOPERATIVE DIAGNOSES: 1. The patient is a 61-year-old white female with a recently newly diagnosed right breast cancer process in the lower to lower inner aspect of the right breast, which consisted of an approximately 4.5 cm MRI and ultrasound lesion, which was consistent with an intermediate-grade invasive ductal carcinoma, which was 90% ER positive, 90% KY positive, and her2-lizzette negative, and for which [...] carcinoma, which was 90% ER positive, 90% KY positive, and her2-lizzette negative, and for which [...] room, and under sterile conditions (CPT code 36963), and was personal performed by Dr. Stuart Smallwood. ANESTHESIA: General endotracheal anesthesia per Anesthesiology. ESTIMATED BLOOD LOSS: Minimal during my portion of the case. FROZEN SECTIONS: Right axilla sentinel lymph node #1, right axillary sentinel lymph node #2, and right axillary non-sentinel lymph node #1 were all negative for carcinoma on frozen section analysis. DRAINS: To be placed by the [facility] Plastic Surgery Service. INDICATIONS: The patient is [...] room, and under sterile conditions (CPT code 00246), and was personal performed by Dr. Stuart [...] with the patient in stable condition, Dr. Sharath Alvarado of [facility] Plastic Surgery came into the operating room and took over charge of the case, and for which I subsequently left the operating room after all my portions of the case were completed. Dictated By: MD Stuart Meyer MD ATTENDING SPP/MedQ JOB: [id number] DOC: [id number] * Brief Op Note - Stuart Smallwood MD - 04/10/2022 5:35 PM EDT Malia Cook ([id number]) PRE OPERATIVE DIAGNOSIS Malignant neoplasm of lower-inner [...] - Primary ANESTHESIOLOGIST Anesthesiologist: Dionte Guardado MD STRATEGY ASSOCIATE: Bayron Ac, BUSINESS DEVELOPMENT ASSISTANT-STRATEGY ASSOCIATE; Sharlene Brooks APRN-STRATEGY ASSOCIATE SURGICAL STAFF Computer Systems Support Specialist: Ascencion Del Rio, ADAN; Jackelyn Hunter RN Physician Nanosystems Engineer: Devon Silverio PA-C Relief Computer Systems Support Specialist: Nasrin Cramer RN Relief Scrub: Anita Higgins [...] s/p immediate right breast reconstruction with tissue transportation maintenance worker placement. No fluid in transportation maintenance worker. Post-op plan: Wound care: Nothing to do. [...] keflex Follow-up: 04/15/2022 * Op Note - Sharath Alvarado MD - 04/10/2022 11:29 AM EDT Operative Report DATE PERFORMED: 04/10/22 SERVICE: Plastic Surgery ATTENDING: Sharath Alvarado MD ASSISTANTS: ORALIA Thomas, who was the tourist information assistant on this case as no other qualified person was available. The family readiness support assistant provided exposure, retraction, hemostasis, dissection, and [...] repair. 2. Right breast reconstruction with tissue transportation maintenance worker. - Dragline Oiler: Dileep - Reference: [id number] - Serial #: [id number] - Intraoperative fill: 0 cc - Fill material: saline INDICATIONS FOR PROCEDURE: This is a patient with the history as outlined above. Based on preoperative evaluation, the plan is to proceed with the first stage of implant-based reconstruction with placement of tissue transportation maintenance worker following mastectomy. I saw the patient preoperatively [...] I then proceeded to place the tissue transportation maintenance worker. All personnel involved changed to new sets [...] each other laterally with several 2-0 PDS [id number] sutures. Two 15-Bahamian Tucker drains were placed and each secured [...] at the end of the case. I, Sharath Alvarado MD, was scrubbed and present for the entire duration of the procedure with the exception of subcuticular skin closure during which I was immediately available. ANESTHESIA: General. COMPLICATIONS: None. DRAINS: As dictated. ESTIMATED BLOOD LOSS: Minimal. SPECIMENS: None. DISPOSITION: Recovery room in stable condition. * Brief Op Note - Sharath Alvarado MD - 04/10/2022 11:29 AM EDT Malia Cook ([id number]) PRE OPERATIVE DIAGNOSIS Malignant neoplasm of lower-inner [...] LYMPHADENECTOMY AXILLARY DEEP (Right) 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 BREAST TISSUE ENGINEERING WRITER INCLUDING SUBSEQUENT EXPANDERS (Right) PRIMARY CLOSURE Yes INTRAOPERATIVE FINDINGS No significant abnormalities SURGEON Surgeon(s) and Role: Panel 1: * Stuart Smallwood MD - Primary Panel 2: * Sharath Alvarado MD - Primary ANESTHESIOLOGIST Anesthesiologist: Dionte Guardado MD STRATEGY ASSOCIATE: Bayron Ac, BUSINESS DEVELOPMENT ASSISTANT-STRATEGY ASSOCIATE; Sharlene Brooks BUSINESS DEVELOPMENT ASSISTANT-STRATEGY ASSOCIATE SURGICAL STAFF Computer Systems Support Specialist: Ascencion Del Rio RN; Jackelyn Hunter RN Physician Nanosystems Engineer: Devon Silverio PA-C Relief Computer Systems Support Specialist: Nasrin Cramer RN Relief Scrub: Anita Higgins [...] PATH REQUEST Stuart Palafox MD 04/10/2022 0945 Sharath Alvarado MD April 10, 2022 11:29 AM * [...] having surgery today- bilateral mastectomy with tissue transportation maintenance worker reconstruction. Would anticipate discharge home tomorrow from ERU bed as medically indicated. No LITA needs known at this time. See AVS for follow up appointment detail and discharge instructions. For discharge planning assistance during evening and weekend hours, please page the mission support specialist [facility] [phone]. documented in this [facility] Note* Nursing Notes - Ragini Galvez RN - 04/11/2022 8:16 AM EDT Patient provided AVS, supplies for drain care. Educated patient on drain care and needs. Will demonstrate to SO when he arrives. Patient states that sister is staying with her to care for the drains and she was taught in the clinic. Ragini Galvez RN [facility] History of Present illness Narrative* Vandana [...] LYMPHADENECTOMY AXILLARY DEEP (Right) 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 BREAST TISSUE ENGINEERING WRITER INCLUDING SUBSEQUENT EXPANDERS (Right). There were no [...] LYMPHADENECTOMY AXILLARY DEEP (Right) 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 BREAST TISSUE ENGINEERING WRITER INCLUDING SUBSEQUENT EXPANDERS (Right). She is recovering well post-operatively. Post operative orders have been reviewed. Post op diet plans: CLD then advance to Regular diet Pain Control: Tylenol/Ibuprofen/Flexeril/Oxycodone DVT Prophylaxis: no chemoprophylaxis, encourage ambulation Activity: as tolerated Encourage incentive spirometer and OOB. Ashlee Mayberry MD, 04/10/2022 2:34 PM PGY-1, Plastic and Reconstructive Surgery Pager [phone] * Huong Mercado MD - 04/10/2022 2:04 PM EDT Plastic Surgery Post Op Check Malia Cook is a 61 y.o. female POD 0 s/p immediate right breast reconstruction with tissue transportation maintenance worker placement. No fluid in transportation maintenance worker. Subjective: Patient seen and examined on the [...] note. Huong Mercado MD documented in this [facility]08-13-2022 Hospital course Narrative* Antonio Hahn MD, PhD - 04/11/2022 7:30 AM EDT Discharge Summary Name: Malia Cook Age: 61 y.o. Birthday: 1960 Admit Date: 04/10/2022 4:53 AM Discharge Date: 04/11 Discharge Time: am Discharge Unit: [address] [place] [address] Admission Information Admitting Physician: Stuart Smallwood MD [...] and ductal features who presented to the [facility] for a R mastectomy, R SNLB, and TE placement w/ Dr. Smallwood and Dr. Alvarado. She tolerated the procedure well and there [...] with follow up withDr. Smallwood and Dr. Alvarado. Brief Summary of Consults for Discharge Summary: [...] PUFFS BY MOUTH TWICE DAILY Generic drug: lkkawzctxf-enicawwqrihnpw-Brhryeknwj esomeprazole [address] capsule Take [...] at: Arrive to First Floor Registration Desk [phone] 04/15/2022 12:45 PM Sharath Alvarado Department of Plastic Surgery Arrive at: Arrive to First Floor Registration Desk [phone] 05/06/2022 8:30 AM Mel Giron Medical Oncology at [facility] Arrive at: Arrive to First Floor Registration Desk [phone] [facility]* Nursing Notes - Ragini Galvez RN - 04/11/2022 7:10 AM EDT Patient urinated and states it was a good amount. Missed the hat. Ragini Galvez RN [facility]-13[facility] Note* Nursing Notes - Lilly Funez RN - 04/11/2022 4:45 AM EDT Bennett removed per order by this RN. Patient tolerated the procedure well. Balloon intact and 10mL of saline was removed from the balloon. [facility]08-12-2022 Note* Op Note - Stuart Smallwood MD - 04/10/2022 5:47 PM EDT Operative Report DATE PERFORMED: 04/11/2022 SURGEON(S): Stuart Smallwood MD (staff attending surgeon). Dr. Smallwood was present for the entire portion of the case performed by the [facility] Breast Surgical Oncology Service. PREOPERATIVE DIAGNOSES: 1. The patient is a 61-year-old white female with a recently newly diagnosed right breast cancer process in the lower to lower inner aspect of the right breast, which consisted of an approximately 4.5 cm MRI and ultrasound lesion, which was consistent with an intermediate-grade invasive ductal carcinoma, which was 90% ER positive, 90% KY positive, and her2-lizzette negative, and for which [...] carcinoma, which was 90% ER positive, 90% KY positive, and her2-lizzette negative, and for which [...] room, and under sterile conditions (CPT code 39907), and was personal performed by Dr. Stuart Smallwood. ANESTHESIA: General endotracheal anesthesia per Anesthesiology. ESTIMATED BLOOD LOSS: Minimal during my portion of the case. FROZEN SECTIONS: Right axilla sentinel lymph node #1, right axillary sentinel lymph node #2, and right axillary non-sentinel lymph node #1 were all negative for carcinoma on frozen section analysis. DRAINS: To be placed by the [facility] Plastic Surgery Service. INDICATIONS: The patient is [...] room, and under sterile conditions (CPT code 88946), and was personal performed by Dr. Stuart [...] with the patient in stable condition, Dr. Sharath Alvarado of [facility] Plastic Surgery came into the operating room and took over charge of the case, and for which I subsequently left the operating room after all my portions of the case were completed. Dictated By: MD Stuart Meyer MD ATTENDING SPP/MedQ JOB: [id number] DOC: [id number] [facility] Work Phone: 1(702) 794-953008-12-2022 Note* Brief Op Note - Stuart Smallwood MD - 04/10/2022 5:35 PM EDT Malia Tito ([id number]) PRE OPERATIVE DIAGNOSIS Malignant neoplasm of lower-inner [...] - Primary ANESTHESIOLOGIST Anesthesiologist: Dionte Guardado MD STRATEGY ASSOCIATE: Bayron Ac APRN-STRATEGY ASSOCIATE; Sharlene Brooks APRN-STRATEGY ASSOCIATE SURGICAL STAFF Computer Systems Support Specialist: Ascencion Del Rio RN; Jackelyn Hunter RN Physician Nanosystems Engineer: Devon Silverio PA-C Relief Computer Systems Support Specialist: Nasrin Cramer RN Relief Scrub: Anita Higgins [...] Smallwood MD April 10, 2022 5:35 PM [facility] Hospital Discharge instructions* Discharge Instructions* Nabila House RN - 04/10/2022 1:20 PM EDT Your providers are: Dr. Smallwood (phone: [phone]) and Dr. Alvarado ([phone]) During office hours, Wednesday through Wednesday, 8:00 [...] NOT RESUME SHOWERING until instructed by Dr. Alvarado. Sponge bathe only until directed. This is [...] all times. Do not insert a soft filler and trimmer in the bra until your physician gives [...] receive this prescription make an appointment at [facility] or the shop of your choice to be fitted for a prosthesis and post mastectomy clothing such as bras, swimsuits, etc. You may also purchase items online, one source is: https://fjmos-azvtfzlh-vai.[facility].net/ If your surgeon does not wish for [...] To sign up, call or see https://cancer.osu.e du/patient-support/zixayjlxqi-dgx-hxihmkp Attending educational class with other cancer survivors and their caregivers can be very helpful after surgery. For more information about our free classes and support groups call or see https://cancer.os.[facility]/patient-support/fswbquaidk-shh-llnosbu Reputable websites National Cancer Anderson: https://www.cancer.gov/ RxResults Foundation: https://ww5.Medical Device Innovations.org/ Support organizations of interest to people with breast cancer Reach to Recovery: https://www.cancer.org/treatment/pnqgoxi-lpbvnuxp-pff-services/fjekx-vr-jcltbzuy .html Living beyond breast cancer: https://www.lbbc.org/ Young Survival Coalition: https://www.youngsurvival.org/ Pyron SolarerliLSEO Foundation: https://www.tigerlilyfosaint francis healthcareation.org/ Cancer Support Community: https://www.cancersupportcommunity.org/ If you need support talking to your children or grandchildren about your diagnosis, please refer to: This explanation by psychologist on how to tell your children or grandchildren: https://www.K[employer] Yearsube.com/watch?v=9cslmO6B2wP&feature=youtu.be This video for children to explain the cancer diagnosis: https://www.Kid Care Yearsube.com/watch?v=5DTYSnvmecA&feature=youtu.be This website which coaches you through how to tell your children: http://www.Wayfair.SundaySky/ * Attachments The following attachments cannot be sent through Care Everywhere. * Constipation and Pain Medicine (Katy Cid) (Citizen [place]) * Transparent Dressing and Biopatch: How to Change (Katy Cid) (Citizen [place]) * Breast Reconstruction Drain Care (Katy Cid) (Citizen Of [place]) documented in this [facility]08-12-2022 Note* Plan of Care - Devon Silverio PA-C - 04/10/2022 11:57 AM EDT Plastic Surgery Plan of Care Note Malia Cook is a 61 y.o. female POD 0 s/p immediate right breast reconstruction with tissue transportation maintenance worker placement. No fluid in transportation maintenance worker. Post-op plan: Wound care: Nothing to do. [...] oxy, flexeril and keflex Follow-up: 04/15/2022 [facility] Work Phone: 1(554) 115-883408-12-2022 Nurse Surgical operation note* Lizzeth Marie RN - 04/10/2022 11:48 AM EDT 1153: Patient arrives in [facility] PACU from OR via gurney with side rails up x2 with HOB >30 degrees, accompanied by Anesthesiologist: Dionte Guardado MD, STRATEGY ASSOCIATE: MARYCARMEN LinoSTRATEGY ASSOCIATE; YORDAN Hwang. Patient placed on monitors, VSS. Report received from anesthesia. Patient assessed, see assessment. 1250: Paged Dr. Guardado for sign out. 1258: Sign out received. 1311: Attempted to call report to [facility]. Call-back number given. 1331: Report given to Rosaura Lopez RN. 1343: Pt transported to [facility] via cart x2 side rails. [facility] Nurse Note* Lizzeth Marie RN - 04/10/2022 11:48 AM EDT 1153: [facility] with side rails up x2 with HOB >30 degrees, accompanied by Anesthesiologist: Dionte Guardado MD, STRATEGY ASSOCIATE: MARYCARMEN LinoSTRATEGY ASSOCIATE; YORDAN Hwang. Patient placed on monitors, VSS. Report received from anesthesia. Patient assessed, see assessment. 1250: Paged Dr. Guardado for sign out. 1258: Sign out received. 1311: Attempted to call report to [facility]. Call-back number given. 1331: Report given to Rosaura Lopez RN. 1343: Pt transported to [facility] via cart x2 side rails. * Jackelyn [...] seizure or stroke. documented in this encounter[facility]* Op Note - Sharath Alvarado MD - 04/10/2022 11:29 AM EDT Operative Report DATE PERFORMED: 04/10/22 SERVICE: Plastic Surgery ATTENDING: Sharath Alvarado MD ASSISTANTS: ORALIA Thomas, who was the tourist information assistant on this case as no other qualified person was available. The family readiness support assistant provided exposure, retraction, hemostasis, dissection, and [...] repair. 2. Right breast reconstruction with tissue transportation maintenance worker. - Dragline Oiler: Dileep - Reference: [id number] - Serial #: [id number] - Intraoperative fill: 0 cc - Fill material: saline INDICATIONS FOR PROCEDURE: This is a patient with the history as outlined above. Based on preoperative evaluation, the plan is to proceed with the first stage of implant-based reconstruction with placement of tissue transportation maintenance worker following mastectomy. I saw the patient preoperatively [...] I then proceeded to place the tissue transportation maintenance worker. All personnel involved changed to new sets [...] each other laterally with several 2-0 PDS xppbpg-kr-[id number] sutures. Two 15-Bahamian Tucker drains were placed and each secured [...] at the end of the case. I, Sharath Alvarado MD, was scrubbed and present for the entire duration of the procedure with the exception of subcuticular skin closure during which I was immediately available. ANESTHESIA: General. COMPLICATIONS: None. DRAINS: As dictated. ESTIMATED BLOOD LOSS: Minimal. SPECIMENS: None. DISPOSITION: Recovery room in stable condition. [facility] Work Phone: 1(110) 882-946008-12-2022 Note* Brief Op Note - Sharath Alvarado MD - 04/10/2022 11:29 AM EDT Malia Tito ([id number]) PRE OPERATIVE DIAGNOSIS Malignant neoplasm of lower-inner [...] LYMPHADENECTOMY AXILLARY DEEP (Right) 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 BREAST TISSUE ENGINEERING WRITER INCLUDING SUBSEQUENT EXPANDERS (Right) PRIMARY CLOSURE Yes INTRAOPERATIVE FINDINGS No significant abnormalities SURGEON Surgeon(s) and Role: Panel 1: * Stuart Smallwood MD - Primary Panel 2: * Sharath Alvarado MD - Primary ANESTHESIOLOGIST Anesthesiologist: Dionte Guardado MD STRATEGY ASSOCIATE: Bayron Ac APRN-STRATEGY ASSOCIATE; Sharlene Brooks APRN-MICHELE SURGICAL STAFF Computer Systems Support Specialist: Ascencion Del Rio RN; Jackelyn Hunter RN Physician Nanosystems Engineer: Devon Silverio PA-C Relief Computer Systems Support Specialist: Nasrin Cramer RN Relief Scrub: Anita Higgins [...] PATH REQUEST Stuart Palafox MD 04/10/2022 0945 Sharath Alvarado MD April 10, 2022 11:29 AM [facility]08-12-2022 Note* Nursing Notes - Nabila House RN [...] having surgery today- bilateral mastectomy with tissue transportation maintenance worker reconstruction. Would anticipate discharge home tomorrow from ERU bed as medically indicated. No LITA needs known at this time. See AVS for follow up appointment detail and discharge instructions. For discharge planning assistance during evening and weekend hours, please page the mission support specialist [facility] [phone]. [facility]08-12[facility]20[facility] Nurse Surgical operation note* Jackelyn Hunter RN - 04/10/2022 8:45 AM EDT 0827 Family notified of surgery start 1010 Family updated 1121 Hand-off report sent to PACU charge nurse 1134 PACU given notice of arrival 1151 Patient extubated and transported to PACU with anesthesia at bedside on oxygen inhalation. [facility]08-12-2022 Attending History and physical note* CARTER Castaneda - 04/10/2022 6:22 AM EDT PERIOPERATIVE SURGICAL HISTORY AND PHYSICAL UPDATE Pre-op Diagnoses: Malignant neoplasm of lower-inner quadrant of right breast of female, estrogen receptor positive [C50.311, Z17.0] Procedure(s): MASTECTOMY COMPLETE BX LYMPH NODE AXILLARY DEEP INJECTION RADIOACTIVE TRACER FOR SENTINEL NODE IDENTIFICATION LYMPHADENECTOMY AXILLARY DEEP 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 BREAST TISSUE ENGINEERING WRITER INCLUDING SUBSEQUENT EXPANDERS Surgeon(s): Surgeon(s) and Role: Panel 1: * Stuart Smallwood MD - Primary Panel 2: * Sharath Alvarado MD - Primary History and Physical Update: [...] have personally reviewed and evaluated this patient's [facility] electronic medical record chart, as well [...] 9:30 AM EDT FOLLOW UP NOTE FOR [facility] BREAST SURGICAL ONCOLOGY CLINIC: DR. SMALLWOOD: HISTORY [...] as of 02/24/2022. The patient lives in [place], [place]. 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 in [place], [place]. ################################################################################ ############################################ The patient is most recent outside prior breast imaging was performed at [facility] in [place], [place], including bilateral diagnostic digital mammogram and right breast ultrasound on 01/15/2022. On 02/21/2021, the patient underwent a 12 lead EKG through the [facility] in [place], [place].This showed normal sinus rhythm with a ventricular rate of 69 beats per minute. They stated: Impression: SINUS RHYTHM WITH SHORT KY. NONSPECIFIC T WAVE ABNORMALITY. ABNORMAL ECG. . On 04/02/2021, the patient underwent Cardiopulmonary Exercise Test (CPET) at the [facility], in [place], [place]. They stated: Summary: In summary, in [...] right breast [3.2 cm FRN] at [facility] in [place], [place]. The final pathology from 01/20/2022 showed low-grade invasive carcinoma with mixed ductal and lobular features, measuring 1.9 cm in greatest dimension, which was found to be >90% ER positive, 80-90% KY positive, and HER2/lizzette negative. On 02/18/2022, the patient's outside breast imaging was reviewed by Dr. Biju Blum of [facility] breast Radiology. They stated: EXAM: BREAST IMAGING [...] with spiculated margins and associated vascular flow. [facility] at 4.5 x [...] OR DRUG EFFECTS. Confirmed by Jesusita Hurt ([id number]) on 02/26/2022 5:37:03 AM. . On 02/24/2022, [...] patient be seen by 1 of the [facility] Plastic Surgeons. We discussed the importance of having the patient be seen by 1 of the [facility] breast medical oncologist. We discussed the importance of having the patient be seen by 1 of the [facility] breast radiation oncologist. We discussed obtaining repeat [...] having the patient be evaluated by the [facility] clinical cancer genetics service to discuss comprehensive [...] patient contact information for our nurse practitioner, Prakash Santiago, and have instructed the patient to remain in contact with our nurse practitioner, Prakash Santiago, through [employer], for any future upcoming questions or concerns that they have regarding their management or follow-up in our [facility] breast Surgical Oncology Clinic. . On 02/24/2022, the patient underwent right breast ultrasound and right axillary ultrasound at [facility]. This was read by Dr. Wei Robertson of [facility] breast radiology. They stated: EXAM: US BREAST LIMITED UNILATERAL RIGHT, US AXILLA FOR MAMMOGRAPHY RIGHT, 02/24/2022 10:44 AM (accession [id number]), 02/24/2022 10:45 AM (accession [id number]). CLINICAL INDICATIONS: New right breast malignancy 5 [...] patient underwent a bilateral breast MRI at [facility]. This was read by Dr. Wei Robertson of [facility] breast radiology. They stated: FINDINGS: Amount of [...] 03/04/2022, the patient was seen by Dr. Sharath Alvarado of [facility] Plastic surgery. They stated: Plan: I discussed that the patient would be most suited to 2-stage implant-based reconstruction. After discussion, the patient stated that they wish to proceed with: right mastectomy and immediate breast reconstruction with tissue transportation maintenance worker. We will schedule/coordinate surgery and the patient will return at their preoperative appointment. . On 03/18/2022, the patient underwent a nuclear medicine cardiac stress test at [facility]. They stated: Interpretation Summary: Lexiscan Stress myocardial [...] was seen by Dr. Deepti Gomez of [facility] breast Radiation Oncology. The patient returns to my [facility] breast surgical oncology clinic at this time. [...] evaluation (Ramona Pena and Simin Lemos and Prakash Santiago). 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 in [place], [place]. ################################################################################ ############################################ We discussed right mastectomy procedure, right axillary sentinel lymph node mapping biopsy procedure, and possible right axillary lymph node dissection procedure (by me) and placement of a right-sided tissue transportation maintenance worker (by Dr. Sharath Alvarado of [facility] Plastic surgery). I have discussed all of [...] patient contact information for our nurse practitioner, Prakash Santiago, andhave instructed the patient to remain in contact with our nurse practitioner, Prakash Santiago,through [employer], for any future upcoming questions or concerns that they have regarding their management or follow-up in our [facility]. The patient has [...] patient contact information for our nurse practitioner, Prakash Santiago, andhave instructed the patient to remain in contact with our nurse practitioner, Prakash Santiago,through [employer], for any future upcoming questions or concerns that they have regarding their management or follow-up in our [facility] breast Surgical Oncology [facility]. This note was dictated using Chumby voice recognition software. Attempts at proofreading were made, but errors may occasionally still occur. I have reviewed Malia Nixonman medical, surgical and other pertinent history in detail, and have updated medication and allergy information in the computerized patient record. REFERRING/PRIMARY PROVIDER(S) -Referring Provider for today's consult: Tucker Haywood MD -Primary Care Provider: Tucker Haywood ADDENDUM #1: PREOPERATIVE HISTORY AND PHYSICAL EXAMINATION NOTE FOR [facility] [...] carcinoma with mixed ductal and lobular features, ER+/KY+/HER2- PAST SURGICAL HISTORY Past Surgical History: Procedure [...] immunization history on file for this patient. 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 No [...] reviewed by Dr. Smallwood. I have reviewed [facility] medical, surgical and other pertinent history in detail, and have updated medication and allergy information in the computerized patient record. [facility]-12-[facility] History and physical note* Ryann Perales, BUSINESS DEVELOPMENT ASSISTANT-BUILD AND RELEASE MANAGER - 04/10/2022 6:22 AM EDT PERIOPERATIVE SURGICAL HISTORY AND PHYSICAL UPDATE Pre-op Diagnoses: Malignant neoplasm of lower-inner quadrant of right breast of female, estrogen receptor positive [C50.311, Z17.0] Procedure(s): MASTECTOMY COMPLETE BX LYMPH NODE AXILLARY DEEP INJECTION RADIOACTIVE TRACER FOR SENTINEL NODE IDENTIFICATION LYMPHADENECTOMY AXILLARY DEEP 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 BREAST TISSUE ENGINEERING WRITER INCLUDING SUBSEQUENT EXPANDERS Surgeon(s): Surgeon(s) and Role: Panel 1: * Stuart Smallwood MD - Primary Panel 2: * Sharath Alvarado MD - Primary History and Physical Update: [...] have personally reviewed and evaluated this patient's [facility] electronic medical record chart, as well as [...] as of 02/24/2022. The patient lives in [place], [place]. 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 in [place], [place]. ################################################################################ ############################################ The patient is most recent outside prior breast imaging was performed at [facility] in [place], [place], including bilateral diagnostic digital mammogram and right breast ultrasound on 01/15/2022. On 02/21/2021, the patient underwent a 12 lead EKG through the [facility] in [place], [place].This showed normal sinus rhythm with a ventricular rate of 69 beats per minute. They stated: Impression: SINUS RHYTHM WITH SHORT KY. NONSPECIFIC T WAVE ABNORMALITY. ABNORMAL ECG. . On 04/02/2021, the patient underwent Cardiopulmonary Exercise Test (CPET) at the [facility], in [place], [place]. They stated: Summary: In summary, in [...] right breast [3.2 cm FRN] at [facility] in [place], [place]. The final pathology from 01/20/2022 showed low-grade invasive carcinoma with mixed ductal and lobular features, measuring 1.9 cm in greatest dimension, which was found to be >90% ER positive, 80-90% KY positive, and HER2/lizzette negative. On 02/18/2022, the patient's outside breast imaging was reviewed by Dr. Biju Blum of [facility] breast Radiology. They stated: EXAM: BREAST IMAGING [...] with spiculated margins and associated vascular flow. [facility] the mass at 4.5 x [...] OR DRUG EFFECTS. Confirmed by Jesusita Hurt ([id number]) on 02/26/2022 5:37:03 AM. . On 02/24/2022, [...] patient be seen by 1 of the [facility] breast medical oncologist. We discussed the importance of having the patient be seen by 1 of the [facility] breast radiation oncologist. We discussed obtaining repeat [...] having the patient be evaluated by the [facility] clinical cancer genetics service to discuss comprehensive [...] patient contact information for our nurse practitioner, Prakash Santiago, and have instructed the patient to remain in contact with our nurse practitioner, Prakash Santiago, through [employer], for any future upcoming questions or concerns that they have regarding their management or follow-up in our [facility] breast Surgical Oncology Clinic. . On 02/24/2022, the patient underwent right breast ultrasound and right axillary ultrasound at [facility]. This was read by Dr. Wei Robertson of [facility] breast radiology. They stated: EXAM: US BREAST LIMITED UNILATERAL RIGHT, US AXILLA FOR MAMMOGRAPHY RIGHT, 02/24/2022 10:44 AM (accession [id number]), 02/24/2022 10:45 AM (accession [id number]). CLINICAL INDICATIONS: New right breast malignancy 5 [...] patient underwent a bilateral breast MRI at [facility]. This was read by Dr. Wei Robertson of [facility] breast radiology. They stated: FINDINGS: Amount of [...] 03/04/2022, the patient was seen by Dr. Sharath Alvarado of [facility] Plastic surgery. They stated: Plan: I discussed that the patient would be most suited to 2-stage implant-based reconstruction. After discussion, the patient stated that they wish to proceed with: right mastectomy and immediate breast reconstruction with tissue transportation maintenance worker. We will schedule/coordinate surgery and the patient will return at their preoperative appointment. . On 03/18/2022, the patient underwent a nuclear medicine cardiac stress test at [facility]. They stated: Interpretation Summary: Lexiscan Stress myocardial [...] the patient was seen by Dr. Deepti oGmez of [facility] breast Radiation Oncology. The patient returns to my [facility] breast surgical oncology clinic at this time. [...] evaluation (Ramona Pena and Simin Lemos and Prakash Santiago). 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 in [place], [place]. ################################################################################ ############################################ We discussed right mastectomy procedure, right axillary sentinel lymph node mapping biopsy procedure, and possible right axillary lymph node dissection procedure (by me) and placement of a right-sided tissue transportation maintenance worker (by Dr. Sharath Alvarado of [facility] Plastic surgery). I have discussed all of [...] patient contact information for our nurse practitioner, Prakash Santiago, andhave instructed the patient to remain in contact with our nurse practitioner, Prakash Santiago,through [employer], for any future upcoming questions or concerns that they have regarding their management or follow-up in our [facility] breast Surgical Oncology Clinic. The patient has [...] patient contact information for our nurse practitioner, Prakash Santiago, andhave instructed the patient to remain in contact with our nurse practitioner, Prakash Santiago,through [employer], for any future upcoming questions or concerns that they have regarding their management or follow-up in our [facility] breast Surgical Oncology Clinic. This note was dictated using Chumby voice recognition software. Attempts at proofreading were made, but errors may occasionally still occur. I have reviewed Malia Tito medical, surgical and other pertinent history in detail, and have updated medication and allergy information in the computerized patient record. REFERRING/PRIMARY PROVIDER(S) -Referring Provider for today's consult: Tucker Hayowod MD -Primary Care Provider: Tucker Haywood ADDENDUM [...] carcinoma with mixed ductal and lobular features, ER+/KY+/HER2- PAST SURGICAL HISTORY Past Surgical History: Procedure Laterality Date CORE BIOPSY OF THE BREAST Right 01/20/2022 invasive carcinoma BLADDER SUSPENSION 2012 mostly removed d/t infection HYSTERECTOMY 2011 BLADDER SUSPENSION 2005 ACL 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 Left 2004 MEDICATIONS Current Outpatient Medications Medication Sig Albuterol [...] immunization history on file for this patient. 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 No [...] reviewed by Dr. Smallwood. I have reviewed [facility] medical, surgical and other pertinent history in detail, and have updated medication and allergy information in the computerized patient record. documented in this encounterOSU [facility] Nurse Surgical operation note* Gertrudis Swartz RN - 04/10/2022 5:28 AM EDT Patient denies hx of chemo and radiation. Patient denies metal or foreign objects in body, except Rheel replacement. Patient denies hx of seizure or stroke. [facility]-22[facility] Instructions* Patient Instructions* Kelsie Hathaway RN - [...] you @ https://takebackday.meir.gov under the COLLECTION SITE SCIENTIFIC WRITER tab. Never dispose of un-needed medications down the sink or toilet. Instead, crush the medication and mix with damp coffee grounds or cat litter, place in a sealed plastic freezer bag, and dispose of in your regular trash. Your Medical/Oncology Team Doctor: Mel Giron MD Nurse Practitioner: Arnaldo Land APRN-BUILD AND RELEASE MANAGER Primary Nurses: DARLENE DejesusN, RN, ADAN Eid BSN, ADAN Iglesias, BSN, OCN We are available to take calls Wednesday-Wednesday 8:00am-4:30pm. During non-business hours and holidays phone calls will be managed by after-hours [facility]/Jose Roberto RN's. Please allow at least 10 business days for your team to complete any paperwork. When requesting medication refills, please try to provide as much notice as possible (5 days) in order to ensure that you do not run out of medication. documented in this encounterU [facility] History of Present illness Narrative* Mel Giron MD - 03/20/2022 3:30 PM EDT Images from the original note were not included. Malia Cook is a 61 y.o. female who presents today to the [facility] [place] [facility] for a new patient evaluation and to establish a plan of care. Referring Provider: Marlene Olivas APR* Breast Surgeon: Dr. Smallwood Plastic Surgeon: Radiation Oncologist: Dr. Gomez PCP: Dr. 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 Breast Cancer: -We reviewed Nando's diagnosis in detail. She has at least a stage IB invasive carcinoma with both ductal and lobular carcinoma. It is strongly hormone positive (ER >90%, KY 80-90%) and Her-2 negative (FISH ratio 1.8). [...] within 6 months of starting endocrine therapy. RTC 05/06/2022 for pathology review. All of the patient's questions were addressed. They were given our office contact information to reach us with further questions. Mel Giron MD, MEd Metal Mold Dresser of Internal Medicine Division of Medical Oncology [facility] documented in this encounterOSU [facility]07-[facility]22 Instructions* Patient Instructions* Deepti Gomez MD, PhD - 03/20/2022 2:15 PM EDT -Based on the available information, you have breast cancer of your right breast -Your breast cancer cells are: ER positive, KY positive, and HER2 negative. -Based on this, [...] to meet you today and please call [phone] if you have any questions Deepti Gomez M.D., Ph.D. Radiation Oncology [facility] documented in this encounterOSU [facility]07[facility] History of Present illness Narrative* Arnaldo Escobedo, BUSINESS DEVELOPMENT ASSISTANT-BUILD AND RELEASE MANAGER - 03/20/2022 1:30 PM EDT RADIATION ONCOLOGY NEW PATIENT VISIT NOTE DOS: 03/20/2022 REFERRING PROVIDER: Stuart Smallwood MD OTHER PROVIDERS: Dr. Smallwood, Dr. Alvarado, Dr. Giron IDENTIFICATION: Malia Cook is a 61 y.o. postmenopausal woman with clinical anatomic stage IIA / prognostic stage IB (cT2 cN0) grade 1 invasive carcinoma with mix ductal and lobular feature of the RIGHT breast that is ER positive (>90%), KY positive (80-90%), HER2 (2+) by IHC, FISH [...] for evaluation. 01/15/22: Bilateral diagnostic mammogram w adriel & Right breast US: macro lobulated spiculated [...] feature, grade 1 - ER positive (>90%), KY positive (80-90%), HER2 (2+) by IHC, FISH [...] proven malignancy) 03/04/22: Establish care with Dr. Alvarado of Plastics. Patient stated that they wish to proceed with: right mastectomy and immediate breast reconstruction with tissue transportation maintenance worker Seen by Genetic counselor, SIOMARA Scott- does not have any pathogenic variants (mutations) in any of the genes on this panel. She will see [facility] later today She presents today feeling well. She is from [place], [place] (2[place] hours away, near [place]) with her . 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 She is not in any pain. 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 Patient has had a [...] deficits. Cerebellar function intact to Hannah and dvvaqx-[id number]. Psychiatric: Appropriate mood. IMAGING: Imaging reviewed as [...] RIGHT breast that is ER positive (>90%), KY positive (80-90%), HER2 (2+) by IHC, FISH [...] hesitate to contact us with any questions. Arnaldo Escobedo, MSN, BUSINESS DEVELOPMENT ASSISTANT-BUILD AND RELEASE MANAGER [facility], Radiation Oncology [facility], [place] [address] Office [email or web address] I saw and independently examined this patient today. I discussed my findings and the therapeutic plan with the TIMBER FELLER. I agree with the TIMBER FELLER's history, physical examination, and medical decisions as outlined. Malia Cook is a 61 y.o. postmenopausal woman with clinical anatomic stage IIA / prognostic stage IB (cT2 cN0) grade 1 invasive carcinoma with mix ductal and lobular feature of the RIGHT breast that is ER positive (>90%), KY positive (80-90%), HER2 (2+) by IHC, FISH [...] oncology later today. Deepti Gomez M.D., Ph.D. Metal Mold Dresser in Radiation Oncology Pager: [phone] * Cara García RN - 03/20/2022 1:30 PM EDT Breast Cancer (New patient visit for discussion of Radiation Therapy for RIGHT Breast Cancer ) The patient resides with [facility]. The patient does have available transportation. Pain Assessment: Presence of Pain: denies pain/discomfort Patient Concerns: None at this time Malia Cook was not offered a Medical Felting Machine Operator for this exam/procedure/test 03/20/2022. Report given to Arnaldo Escobedo APRN-EDEN García RN documented in this encounterCity Hospital07-20-2022 Hospital Discharge instructions* Patient Instructions* Mark Bhatt [...] completion of your nuclear test at the [facility] [place], you should be awareof the following information: [...] room. Your testing was supervised by Dr. Asim mendiola. A qualified and licensed [facility] assistant superintendent for curriculum will interpret your study and a final [...] technologist if this is the case. (Reference: [id number], Volume 9, Revision 2, Appendix U). If you have any questions or concerns regarding your exam, please call the [place] office at [phone] Wednesday through Wednesday, between the hours of 8:00 AM and 4:00 PM. For medical emergencies, please call 911 or go to your nearest emergency room. To Whom It May Concern: Our patient,Malia Cook, was seen at The [facility] [place] on 03/18/22 for a nucleartest of the [...] please contact our nuclear personnel at either [phone], Wednesday through Wednesday, between the hours of 8:00 AM and 4:00 PM. Thank you, Jose Roberto Salvador MD Air Traffic Control Manager and RSO [facility] [place] [facility] [address] [place] [address] [place] [address] documented in this encounterCity Hospital07-20-2022 History of Present illness Narrative* Mark [...] discharge from the clinic. documented in this encounterCity Hospital07-06-2022 History and physical note* Sharath Alvarado MD - 03/04/2022 8:00 AM EDT Plastic [...] right mastectomy and immediatebreast reconstruction with tissue transportation maintenance worker. We will schedule/coordinate surgery and the patient will return at their preoperative appointment. Please see below for additional details. A total of 40 minutes of trqa-xn-yuky time were spent in this encounter, of which >50% was spentin counseling and/or coordination of care. Sharath Alvarado MD History of Present Illness: Malia Cook is a 61 y.o. female presenting for breast reconstruction evaluation. Past Medical History: Diagnosis Date Hypothyroidism Malignant neoplasm of lower-inner quadrant of right breast of female, estrogen receptor positive 01/20/2022 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, ER+/KY+/HER2- Past Surgical History: Procedure Laterality Date CORE [...] patient's suitability for each of these procedures. [facility] History and physical note* Sharath Alvarado MD - 03/04/2022 8:00 AM EDT Plastic and Reconstructive Surgery Consultation Referring Physician: Dr. Smallwood Reason for Consultation: Breast reconstruction ASSESSMENT/PLAN: This is a 61 y.o. female with a history of RIGHT breast cancer. The patient will require a mastectomy. Exam: Performed with: Kathe Bangura size: C Ptosis: grade 2 Autologous only donor sites: none Symmetry: right inferior pole more contracted Measurements (R, L; cm): BD: 12-12.5 b/l Plan: I discussed that the patient would be most suited to 2-stage implant-based reconstruction. After discussion, the patient stated that they wish to proceed with: right mastectomy and immediatebreast reconstruction with tissue transportation maintenance worker. We will schedule/coordinate surgery and the patient will return at their preoperative appointment. Please see below for additional details. A total of 40 minutes of jgfh-gj-vqoc time were spent in this encounter, of which >50% was spentin counseling and/or coordination of care. Sharath Alvarado MD History of Present Illness: Malia Cook is a 61 y.o. female presenting for breast reconstruction evaluation. Past Medical History: Diagnosis Date Hypothyroidism Malignant neoplasm of lower-inner quadrant of right breast of female, estrogen receptor positive 01/20/2022 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, ER+/KY+/HER2- Past Surgical History: Procedure Laterality Date CORE [...] each of these procedures. documented in this encounterCity Hospital07-06-2022 History of Present illness Narrative* Sharath Alvarado MD - 03/04/2022 8:00 AM EDT Plastic [...] right mastectomy and immediatebreast reconstruction with tissue transportation maintenance worker. We will schedule/coordinate surgery and the patient will return at their preoperative appointment. Please see below for additional details. A total of 40 minutes of udin-gi-veuk time were spent in this encounter, of which >50% was spentin counseling and/or coordination of care. Sharath Alvarado MD History of Present Illness: Malia Cook is a 61 y.o. female presenting for breast reconstruction evaluation. Past Medical History: Diagnosis Date Hypothyroidism Malignant neoplasm of lower-inner quadrant of right breast of female, estrogen receptor positive 01/20/2022 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, ER+/KY+/HER2- Past Surgical History: Procedure Laterality Date CORE [...] each of these procedures. documented in this encounterCity Hospital07-06-2022 Miscellaneous Notes* Addendum Note - Andreina Padilla PA-C - 03/04/2022 8:00 AM EDTAddended by: ANDREINA PADILLA on: 03/04/2022 12:34 PM Modules accepted: Orders documented in this encounterOS[facility]07-06-2022 Note* Addendum Note - Andreina Padilla PA-C - 03/04/2022 8:00 AM EDTAddended by: ANDREINA PADILLA on: 03/04/2022 12:34 PM Modules accepted: Orders [facility] Work Phone: [phone]) 234-648107-01-2022 History of Present illness Narrative* Bailey Crump - 02/27/2022 9:40 AM EDT Second technologist present for imaging. No need for medical hand sander. documented in this encounterCity Hospital06-28-2022 History of Present illness Narrative* Tejal Reyes - 02/24/2022 10:30 AM EDT Patient offered a medical hand sander for sensitive exam. Pt declined documented in this encounterCity Hospital06-28-2022 History of Present illness Narrative* CARTER Gaona - 02/24/2022 9:00 AM EDT Images from the original note were not included. See Dr. Smallwood's note from the same day. * Stuart Smallwood MD - 02/24/2022 9:00 AM EDT INITIAL PATIENT EVALUATION NOTE / HISTORY AND PHYSICAL EXAMINATION NOTE FOR [facility] BREAST SURGICAL ONCOLOGY CLINIC: DR. SMALLWOOD: HISTORY OF PRESENT ILLNESS The patient is a new patient to my [facility] Breast Surgical Oncology Clinic. The patient is currently a 61-year-old white female. The patient had a body mass index/BMI of approximately 24.8 kg/m (5 foot, 3.5 inches tall, and weighed approximately 142 pounds), as of 02/24/2022. The patient lives in [place], [place]. 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 in [place], [place]. ################################################################################ ############################################ The patient is most recent outside prior breast imaging was performed at [facility] in [place], [place], including bilateral diagnostic digital mammogram and right breast ultrasound on 01/15/2022. On 02/21/2021, the patient underwent a 12 lead EKG through the [facility] in [place], [place].This showed normal sinus rhythm with a ventricular rate of 69 beats per minute. They stated: Impression: SINUS RHYTHM WITH SHORT KY. NONSPECIFIC T WAVE ABNORMALITY. ABNORMAL ECG. . On 04/02/2021, the patient underwent Cardiopulmonary Exercise Test (CPET) at the [facility], in [place], [place]. They stated: Summary: In summary, in [...] right breast [3.2 cm FRN] at [facility] in [place], [place]. The final pathology from 01/20/2022 showed low-grade invasive carcinoma with mixed ductal and lobular features, measuring 1.9 cm in greatest dimension, which was found to be >90% ER positive, 80-90% KY positive, and HER2/lizzette negative. On 02/18/2022, the patient's outside breast imaging was reviewed by Dr. Biju Blum of [facility] breast Radiology. They stated: EXAM: BREAST IMAGING [...] carcinoma with mixed ductal and lobular features, ER+/KY+/HER2- PAST SURGICAL HISTORY Past Surgical History: Procedure [...] immunization history on file for this patient. 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 Patient has had a [...] for the evaluation (Clarissa Hamm and Marlene Santiago). 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 in [place], [place]. ################################################################################ ############################################ On 02/24/2022, I had [...] patient be seen by 1 of the [facility] breast medical oncologist. We discussed the importance of having the patient be seen by 1 of the [facility] breast radiation oncologist. We discussed obtaining repeat [...] having the patient be evaluated by the [facility] clinical cancer genetics service to discusscomprehensive genetic [...] patient contact information for our nurse practitioner, Prakash Santiago, andhave instructed the patient to remain in contact with our nurse practitioner, Prakash Santiago,through [employer], for any future upcoming questions or concerns that they have regarding their management or follow-up in our [facility] breast Surgical Oncology Clinic. ################################################################################ ############################################ In the process of seeing this patient, multiple medical records, imaging studies, and other ancillary studies, and their reports, were carefully reviewed from all available internal OS sites, as well as from all available [...] ################################################################################ ############################################ This note was dictated using Chumby voice recognition software. Attempts at proofreading were made, but errors may occasionally still occur. [facility] and other pertinent [facility] in [facility], and have updated medication and allergy information in the computerized patient record. REFERRING/PRIMARY PROVIDER(S) -Referring Provider for today's consult: Self, Self -Primary Care Provider: Tucker Haywood ADDENDUM #1: On 02/24/2022, the patient underwent right breast ultrasound and right axillary ultrasound at [facility]. This was read by Dr. Wei Robertson of [facility] breast radiology. They stated: EXAM: US BREAST LIMITED UNILATERAL RIGHT, US AXILLA FOR MAMMOGRAPHY RIGHT, 02/24/2022 10:44 AM (accession [id number]), 02/24/2022 10:45 AM (accession [id number]). CLINICAL INDICATIONS: New right breast malignancy 5 [...] Laterality: Right. . . documented in this encounterCity HospitalEvaluation + Plan note Future Appointments Appointment Date:05/10/2024 12:30:00 PM Scheduled Provider: Location:[facility] Appointment Type:[facility] Evaluation + Plan note Future Appointments Appointment Date:12/20/2024 01:00:00 PM Scheduled Provider: Location:[facility] Appointment Type:[facility] Evaluation + Plan note Future Appointments Appointment Date:02/28/2025 07:30:00 AM Scheduled Provider: Location:[facility] Appointment Type:[facility] evaluation note* Diagnosis Malignant neoplasm of lower-inner quadrant of right breast of female, estrogen receptor positive documented in this encounter [facility]* Diagnosis Malignant neoplasm of lower-inner quadrant of right breast of female, estrogen receptor positive- Primary Pre-op testing Preoperative examination, unspecified Malignant neoplasm of lower-inner quadrant of right breast of female, estrogen receptor positive Malignant neoplasm of lower-inner quadrant of right breast of female, estrogen receptor positive Pre-op testing Preoperative examination, unspecified documented in this encounter [facility]* Diagnosis Pre-op testing Preoperative examination, unspecified documented in this encounter [facility]* Diagnosis Malignant neoplasm of lower-inner quadrant of right breast of female, estrogen receptor positive [facility] Diagnosis Malignant neoplasm of lower-inner quadrant of right breast of female, estrogen receptor positive documented in this encounter [facility] [facility] Diagnosis Pre-op testing Preoperative examination, unspecified [facility] Diagnosis Malignant neoplasm of lower-inner quadrant of right breast of female, estrogen receptor positive [facility] Diagnosis Malignant neoplasm of lower-inner quadrant of right breast of female, estrogen receptor positive Pre-op testing Preoperative examination, unspecified Malignant neoplasm of lower-inner quadrant of right breast of female, estrogen receptor positive [facility]* Diagnosis Malignant neoplasm of lower-inner quadrant of right breast of female, estrogen receptor positive- Primary Malignant neoplasm of lower-inner quadrant of right breast of female, estrogen receptor positive [facility]* Diagnosis Malignant neoplasm of lower-inner quadrant of right breast of female, estrogen receptor positive Malignant neoplasm of lower-inner quadrant of right breast of female, estrogen receptor positive [facility]* Diagnosis Malignant neoplasm of lower-inner quadrant of right breast of female, estrogen receptor positive [facility] Diagnosis Malignant neoplasm of lower-inner quadrant of right breast of female, estrogen receptor positive [facility]* Diagnosis Malignant neoplasm of lower-inner quadrant of right breast of female, estrogen receptor positive- Primary Personal history of malignant neoplasm of breast [facility] Diagnosis Acquired absence of breast, unspecified laterality- [facility] Diagnosis Malignant neoplasm of lower-inner quadrant of right breast of female, estrogen receptor positive- Primary [facility]* Diagnosis Acquired absence of breast, unspecified laterality- Primary 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 [facility]* Diagnosis Acquired absence of right breast and nipple- Primary 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 [facility] Diagnosis Malignant neoplasm of lower-inner quadrant of right breast of female, estrogen receptor positive- Primary [facility]* Diagnosis Acquired absence of right breast and nipple- Primary Acquired absence of breast and nipple [facility]* Diagnosis Malignant neoplasm of lower-inner quadrant of right breast of female, estrogen receptor positive documented [facility]* Diagnosis Malignant neoplasm of lower-inner quadrant of right breast of female, estrogen receptor positive- Primary [facility]* Diagnosis Malignant neoplasm of lower-inner quadrant of right breast of female, estrogen receptor positive- Primary Hot flashes due to menopause [facility] Diagnosis Malignant neoplasm of lower-inner quadrant of right breast of female, estrogen receptor positive- Primary [facility]* Diagnosis Malignant neoplasm of lower-inner quadrant of right breast of female, estrogen receptor positive- Primary [facility] Diagnosis Malignant neoplasm of lower-inner quadrant of right breast of female, estrogen receptor positive- Primary [facility]* Diagnosis Malignant neoplasm of lower-inner quadrant of right breast of female, estrogen receptor positive- Primary [facility]* Diagnosis History of breast cancer- Primary Personal history of malignant neoplasm of breast [facility]* Diagnosis Acquired absence of right breast and nipple- Primary Acquired absence of breast and nipple [facility] Diagnosis Personal history of malignant neoplasm of breast [facility] Diagnosis Acquired absence of right breast and nipple- Primary Acquired absence of breast and nipple [facility] noteNo InformationNort Agrican Other Evaluation note* Diagnosis Malignant neoplasm of lower-inner quadrant of right breast of female, estrogen receptor positive- Primary 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 [facility] Diagnosis Acquired absence of right breast and nipple- Primary 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 documented [facility] this [facility] noteNo assessment information available [facility] Work Phone: Evaluation note* Diagnosis Acquired absence of right breast and nipple- Primary Acquired absence of breast and nipple [facility] Diagnosis Personal history of malignant neoplasm of breast- Primary [facility] Diagnosis Malignant neoplasm of lower-inner quadrant of right breast of female, estrogen receptor positive- Primary Hot flashes related to aromatase inhibitor therapy [place] Encounter for monitoring aromatase inhibitor therapy Encounter for therapeutic drug monitoring documented [facility] this [facility] Diagnosis Acute medial meniscus tear of left knee, initial encounter- Primary Primary osteoarthritis of left knee Primary localized osteoarthrosis, lower leg [facility] Diagnosis Primary osteoarthritis of left knee- Primary Primary localized osteoarthrosis, lower leg [facility]* Diagnosis Personal history of malignant neoplasm of breast- Primary [facility] Diagnosis Malignant neoplasm of lower-inner quadrant of right breast of female, estrogen receptor positive- Primary [facility] Diagnosis Malignant neoplasm of lower-inner quadrant of right breast of female, estrogen receptor positive documented [facility] this [facility] Diagnosis Malignant neoplasm of lower-inner quadrant of right breast of female, estrogen receptor positive- Primary Postmenopausal Asymptomatic postmenopausal status (age-related) (natural) Aromatase inhibitor use Use of aromatase inhibitors documented [facility] Diagnosis Left knee pain, unspecified chronicity [facility] Diagnosis S/P reverse total shoulder arthroplasty, right- Primary [facility]* Diagnosis Malignant neoplasm of lower-inner quadrant of right breast of female, estrogen receptor positive Postmenopausal Asymptomatic postmenopausal status (age-related) (natural) Aromatase inhibitor use Use of aromatase inhibitors [facility] Diagnosis Arthritis of right shoulder region- Primary Avascular necrosis of bone of shoulder (CMS/HCC) [facility]* Diagnosis Arthritis of right shoulder region- Primary [facility]* Diagnosis Left knee pain, unspecified chronicity- Primary [facility]* Diagnosis S/P reverse total shoulder arthroplasty, right- Primary [facility]* Diagnosis Onset Date Resolution Status Admit Date Allergic rhinitis acuteApril 2024 8:20amGERD (gastroesophageal reflux disease)acuteApril 2024 8:20amReactive airway diseaseacuteApril 2024 8:20amUpper airway cough syndromeacuteApril 2024 8:20am [facility] Work Phone: Evaluation note* Diagnosis Left knee pain, unspecified chronicity- Primary [facility]* Diagnosis Primary osteoarthritis of left knee- Primary [facility]* Diagnosis S/P total knee arthroplasty, left- Primary [facility]* Diagnosis Primary osteoarthritis of left knee- Primary Aftercare following left knee joint replacement surgery [facility]* Diagnosis Malignant neoplasm of lower-inner quadrant of right breast of female, estrogen receptor positive- Primary [facility] Diagnosis Personal history of malignant neoplasm of breast- Primary [facility] Personal history of malignant neoplasm of breast [facility] Diagnosis Primary osteoarthritis of left knee- Primary Aftercare following left knee joint replacement surgery Internal derangement of left knee documented in this encounter [facility]* Diagnosis Primary osteoarthritis of left knee- Primary Aftercare following left knee joint replacement surgery [facility] Diagnosis Primary osteoarthritis of left knee- Primary Aftercare following left knee joint replacement surgery Internal derangement of left knee documented in this encounter [facility]* Diagnosis S/P total knee arthroplasty, left- Primary [facility] Narrative - Reported* Type Description Date Medical History asthma Medical HistoryEsophageal refluxMedical HistoryHypothyroidismMedical History Breast cancer, rightMedical HistoryCOVIDMedical HistoryRecurrent cold sores Medical HistoryFatigue, unspecified typeMedical HistoryLower extremity pain, leftMedical HistoryHypothyroidismMedical HistoryBreast mass, rightMedical HistoryHypoactive sexual desire disorderMedical HistoryDecreased libido without sexual dysfunctionMedical HistoryLeft knee painSurgical Historycarpal tunnel releaseSurgical Historyulnar nerve surgerySurgical HistoryMCL repairSurgical Historyheel surgerySurgical HistoryhysterectomySurgical Historybladder suspension, unspecifiedSurgical Historybladder sling removalHospitalization Historysee aboveHospitalization HistorypneumoniaHospitalization Historychild [place] [employer] Other Hospital course Narrative No data available for this section [facility] Hospital Discharge instructions No data available for this section [facility] Progress note No data available for this section [facility] Reason for referral (narrative)* Consultation (Routine) - New RequestSpecialtyDiagnoses / ProceduresReferred By ContactReferred To ContactPsychology Diagnoses Malignant neoplasm of lower-inner quadrant of right breast of female, estrogen receptor positive Mel Giron MD [address] [place] [address] Referral IDStatusReasonStart DateExpiration DateVisits RequestedVisits [id number] Request/ * Consultation (Routine) - New RequestSpecialtyDiagnoses / ProceduresReferred By ContactReferred To ContactHematology & Oncology Diagnoses Malignant neoplasm of lower-inner quadrant of right breast of female, estrogen receptor positive Mel Giron MD [address] [place] [address] Referral IDStatusReasonStart DateExpiration DateVisits RequestedVisits [id number] Request/ * Radiology (Routine) - New RequestSpecialtyDiagnoses / ProceduresReferred By ContactReferred To Contact Diagnoses Malignant neoplasm of lower-inner quadrant of right breast of female, estrogen receptor positive Procedures BONE DENSITY AXIAL (HIP, PELVIS, SPINE) Mel Giron MD [address] [place] [address] Referral IDStatusReasonStart DateExpiration DateVisits RequestedVisits [id number] [facility] (narrative)* Diagnostic Procedure Only (Routine) - Pending ReviewSpecialtyDiagnoses / ProceduresReferred By ContactReferred To ContactXR IMAGING Diagnoses Primary osteoarthritis of left knee Procedures XR LEG FRONTAL HIP TO ANKLE MECHANICAL AXIS XR LEG FRONTAL HIP TO ANKLE MECHANICAL AXIS BONE LENGTH STUDIES Andreina Oneal PA-C [address] [place], [place] [id number] X[facility] [place] [address] Referral IDStatusReasonStart DateExpiration DateVisits RequestedVisits [id number] Review Auto-Generated Referral * Diagnostic Procedure Only (Routine) - Pending ReviewSpecialtyDiagnoses / ProceduresReferred By ContactReferred To ContactXR IMAGING Diagnoses Primary osteoarthritis of left knee Procedures XR KNEE GENERAL 4V AP BOTH/PA BOTH/LAT/MERC LEFT XR KNEE GENERAL 4V AP BOTH/PA BOTH/LAT/MERC LEFT RADIOLOGIC EXAM KNEE COMPLETE 4/MORE VIEWS Andreina Oneal PA-C [address] [id number] [facility] [place] [address] Referral IDStatusReasonStart DateExpiration DateVisits RequestedVisits [id number] Review Auto-Generated Referral [facility] for [facility] (narrative)No reason for referral information [facility] Work Phone: Reason for visit Narrative* Auth/CertSpecialty Diagnoses / ProceduresReferred By ContactReferred To Contact Diagnoses Malignant neoplasm of lower-inner quadrant of right breast of female, estrogen receptor positive Malignant neoplasm of lower-inner quadrant of right breast of female, estrogen receptor positive [C50.311, Z17.0] Procedures [place] MASTECTOMY, SIMPLE, COMPLETE [place] BX/REMV,LYMPH NODE,DEEP AXILL [place] INJ RADIOACTIVE TRACER FOR ID OF SENTINEL NODE [place] REMOVE ARMPITS LYMPH NODES COMPLT [place] TISSUE ENGINEERING WRITER PLACEMENT BREAST 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 MASTECTOMY COMPLETE BX LYMPH NODE AXILLARY DEEP INJECTION RADIOACTIVE TRACER FOR SENTINEL NODE IDENTIFICATION LYMPHADENECTOMY AXILLARY DEEP 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 BREAST TISSUE ENGINEERING WRITER INCLUDING SUBSEQUENT EXPANDERS Stuart Smallwood MD [address] [facility] [address] Floor, [address] [place] [address] [facility] [address] [place] [address] Referral IDStatusReasonStart DateExpiration DateVisits RequestedVisits [id number] [facility] for visit Narrative* Consultation (Routine) - ClosedSpecialtyDiagnoses / ProceduresReferred By ContactReferred To Contact Physical Therapy Diagnoses Primary osteoarthritis of left knee Procedures [place] OFFICE/OUTPATIENT NEW HIGH MDM 60 MINUTES Ba Romero, DO [address] [place] [address] Phone: tel: fax: Nicole Pereyra, PT Referral IDStatusReasonStart DateExpiration DateVisits RequestedVisits [id number] Specialty Services Required [facility] for visit Narrative* Rehabilitation - Outpatient (Routine) - AuthorizedSpecialtyDiagnoses / ProceduresReferred By ContactReferred To ContactPhysical Therapy Diagnoses Aftercare following left knee joint replacement surgery Procedures [place] OFFICE/OUTPATIENT NEW [facility] 60 MINUTES Ba Romero, DO [address] [place] [id number] Phone: tel: fax: Nicole Pereyra, PT Referral IDStatusReasonStart DateExpiration DateVisits RequestedVisits [id number] Consult and Treat / [facility] for visit Narrative* Radiology (Routine) - New Request SpecialtyDiagnoses / ProceduresReferred By ContactReferred To Contact Diagnoses Personal history of malignant neoplasm of breast Procedures MAMMO DIAGNOSTIC WITH Prakash Harris, LEI-BUILD AND RELEASE MANAGER [address] [place] [address] Phone: tel: fax: Referral IDStatusReasonStart DateExpiration DateVisits RequestedVisits [id number] Request/ [facility] for visit Narrative* Rehabilitation - Outpatient (Routine) - AuthorizedSpecialtyDiagnoses / ProceduresReferred By Contact Referred To ContactPhysical Therapy Diagnoses Aftercare following left knee joint replacement surgery Procedures [place] OFFICE/OUTPATIENT NEW HIGH MDM 60 MINUTES Ba Romero, DO [address] [place] [address] Phone: tel: fax: Nicole Pereyra, JOJO Referral IDStatusReasonStart DateExpiration DateVisits RequestedVisits [id number] Consult and Treat [facility] Healthcare Summary Purpose Family History Relationship Condition Age at Onset Recorded Date/T sandra brother Diabetes mellitus Unknown sisterDiabetes mellitusUnknownfatherDiabetes mellitusUnknownNot Specified Diabetes mellitusUnknown Relationship Condition Age at Onset Recorded Date/T sandra brother Diabetes mellitus Unknown sisterDiabetes mellitusUnknownfatherDiabetes mellitusUnknownNot Specified Diabetes mellitusUnknownHypertensionUnknownHeart diseaseUnknownNot Specified HypertensionUnknownsisterFamily history of colon cancerUnknownMalignant neoplasm Unknown Relationship Condition Age at Onset Recorded Date/T sandra brother Diabetes mellitus Unknown HypertensionUnknownmotherDiabetes mellitusUnknownfatherHeart diseaseUnknown Advance Directives Code StatusDate ActivatedDate InactivatedCommentsFull Code04/10/2022 5:08 AM 04/10/2022 2:01 PMCode StatusDate ActivatedDate InactivatedCommentsFull Code 04/10/2022 5:08 AM04/10/2022 2:01 PMCode StatusDate ActivatedDate Inactivated CommentsFull Code04/10/2022 5:08 AM04/10/2022 2:01 PMCode StatusDate ActivatedDate InactivatedCommentsFull Code04/10/2022 5:08 AM04/10/2022 2:01 PM Advance Directive Response Recorded Date/ Time Advance Directives No June 10:07am Date ActivatedDate InactivatedComments04/10/2022 5:08 AM04/10/2022 2:01 PMDate ActivatedDate InactivatedComments04/10/2022 5:08 AM04/10/2022 2:01 PM Advance Directive Response Recorded Date/ Time Advance Directives Yes April 18, 2024 11:10am Advance Directive Response Recorded Date/ Time Advance Directives Yes April 18, 2024 10:10am Reason for Referral SpecialtyDiagnoses / ProceduresReferred By ContactReferred To Contact Diagnoses Pre-op testing Procedures MRI BREAST BILATERAL WITH AND WITHOUT CONTRAST CHG MRI BREAST WITHOUT&WITH CONTRAST W/CAD BILATERAL Marlene Olivas APRN-BUILD AND RELEASE MANAGER [facility] [place] [address] Referral IDStatusReasonStart DateExpiration DateVisits RequestedVisits [id number] [id number] / ProceduresReferred By ContactReferred To Contact Diagnoses Malignant neoplasm of lower-inner quadrant of right breast of female, estrogen receptor positive Pre-op testing Procedures NUC MYOCARD PERF STRESS MIBI PHARM [place] CHG MYOCARDIAL SPECT MULTIPLE STUDIES CHG MYOCARDIAL SPECT MULTIPLE STUDIES-T [place] CARDIAC STRESS TST,INTERP/REPT ONLY [place] CV STRS TST XERS&/OR RX CONT ECG W/O I&R Marlene Olivas BUSINESS DEVELOPMENT ASSISTANT-BUILD AND RELEASE MANAGER [address] [place] [address] Referral IDStatusReasonStart DateExpiration DateVisits RequestedVisits [id number] - [id number] / ProceduresReferred By ContactReferred To ContactRadiation Oncology Diagnoses Malignant neoplasm of lower-inner quadrant of right breast of female, estrogen receptor positive Marlene Olivas BUSINESS DEVELOPMENT ASSISTANT-BUILD AND RELEASE MANAGER [address] [place] [address] Referral IDStatusReasonStart DateExpiration DateVisits RequestedVisits [id number] [id number] / Procedures Referred By ContactReferred To Contact Diagnoses Pre-op testing Procedures ECG Marlene Olivas BUSINESS DEVELOPMENT ASSISTANT-BUILD AND RELEASE MANAGER [address] [place] [address] Referral IDStatusReasonStart DateExpiration DateVisits RequestedVisits [id number] [id number] / Procedures Referred By ContactReferred To ContactOncology Diagnoses Malignant neoplasm of lower-inner quadrant of right breast of female, estrogen receptor positive Marlene Olivas, BUSINESS DEVELOPMENT ASSISTANT-BUILD AND RELEASE MANAGER [address] [place] [address] Referral IDStatusReasonStart DateExpiration DateVisits RequestedVisits [id number] [id number] / Procedures Referred By ContactReferred To ContactGenetics Diagnoses Malignant neoplasm of lower-inner quadrant of right breast of female, estrogen receptor positive Marlene Olivas, BUSINESS DEVELOPMENT ASSISTANT-BUILD AND RELEASE MANAGER [address] [place] [address] Referral IDStatusReasonStart DateExpiration DateVisits RequestedVisits [id number] [id number] / Procedures Referred By ContactReferred To ContactPlastic Surgery Diagnoses Malignant neoplasm of lower-inner quadrant of right breast of female, estrogen receptor positive Marlene Olivas BUSINESS DEVELOPMENT ASSISTANT-BUILD AND RELEASE MANAGER [address] [place] [address] Sharath Alvarado MD [address] [facility] [address] [place] [address] Referral IDStatusReasonStart DateExpiration DateVisits RequestedVisits [id number] [id number] / Procedures Referred By ContactReferred To Contact Diagnoses Malignant neoplasm of lower-inner quadrant of right breast of female, estrogen receptor positive Procedures US AXILLA FOR MAMMOGRAPHY RIGHT Marlene Olivas, BUSINESS DEVELOPMENT ASSISTANT-BUILD AND RELEASE MANAGER [address] [place] [address] Referral IDStatusReasonStart DateExpiration DateVisits RequestedVisits [id number] Request/[id number] / Procedures Referred By ContactReferred To Contact Diagnoses Malignant neoplasm of lower-inner quadrant of right breast of female, estrogen receptor positive Procedures US BREAST LIMITED UNILATERAL RIGHT Marlene Olivas, BUSINESS DEVELOPMENT ASSISTANT-BUILD AND RELEASE MANAGER [address] [place] [address] Referral IDStatusReasonStart DateExpiration DateVisits RequestedVisits [id number] IDStatusReasonStart DateExpiration DateVisits RequestedVisits [id number]/28/[id number] IDStatusReasonStart DateExpiration DateVisits Requested Visits [id number]/28/20227/[id number] / ProceduresReferred By ContactReferred To Contact Diagnoses Malignant neoplasm of lower-inner quadrant of right breast of female, estrogen receptor positive Procedures QUESTIONNAIRE SERIES Mel Giron MD [address] [place] [address] Referral IDStatusReasonStart DateExpiration DateVisits RequestedVisits [id number] [id number] / Procedures Referred By ContactReferred To Contact Diagnoses Malignant neoplasm of lower-inner quadrant of right breast of female, estrogen receptor positive Procedures NUC BREAST/LYMPH GLAND INJECTION [place] INJ RADIOACTIVE TRACER FOR ID OF SENTINEL NODE Prakash Méndez APRN-BUILD AND RELEASE MANAGER [address] [place] [address] Referral IDStatusReasonStart DateExpiration DateVisits RequestedVisits [id number]/6/20227/[id number] / Procedures Referred By ContactReferred To Contact Procedures NO MECHANICAL DVT PROPHYLAXIS Ryann Perales, BUSINESS DEVELOPMENT ASSISTANT-BUILD AND RELEASE MANAGER [address] [place], [place] [address] Referral IDStatusReasonStart DateExpiration DateVisits RequestedVisits [id number] [id number] / Procedures Referred By ContactReferred To Contact Procedures LOW RISK - NO PHARMACOLOGICAL DVT PROPHYLAXIS Ryann Perales, BUSINESS DEVELOPMENT ASSISTANT-[facility] [address] [place] [address] Referral IDStatusReasonStart DateExpiration DateVisits RequestedVisits [id number] [id number] / Procedures Referred By ContactReferred To Contact Procedures DVT/VTE RISK ASSESSMENT Ryann Perales, BUSINESS DEVELOPMENT ASSISTANT-BUILD AND RELEASE MANAGER [address] [place] [address] Referral IDStatusReasonStart DateExpiration DateVisits RequestedVisits [id number] Request1Referral IDStatusReasonStart DateExpiration DateVisits RequestedVisits [id number] Request04/10/[id number] / ProceduresReferred By ContactReferred To Contact Diagnoses Personal history of malignant neoplasm of breast Procedures MAMMO DIAGNOSTIC WITH Prakash De Los Santos, BUSINESS DEVELOPMENT ASSISTANT-BUILD AND RELEASE MANAGER [address] [place] [address] Referral IDStatusReasonStart DateExpiration DateVisits RequestedVisits [id number] Request/[id number] / Procedures Referred By ContactReferred To Contact Diagnoses Malignant neoplasm of lower-inner quadrant of right breast of female, estrogen receptor positive Procedures MAMMO DIAGNOSTIC WITH ADRIEL Prakash Paula, CARTER [address] [place] [address] Referral IDStatusReasonStart DateExpiration DateVisits RequestedVisits [id number] Request/[id number] / Procedures Referred By ContactReferred To Contact Diagnoses Acquired absence of right breast and nipple Sharath Alvarado MD [address] [facility] [address] [place] [address] Referral IDStatusReasonStart DateExpiration DateVisits RequestedVisits [id number] Fgqaksc92/[id number] / ProceduresReferred By ContactReferred To Contact Diagnoses Malignant neoplasm of lower-inner quadrant of right breast of female, estrogen receptor positive Procedures BONE DENSITY AXIAL (HIP, PELVIS, SPINE) Mel Giron MD [address] [place] [address] Referral IDStatusReasonStart DateExpiration DateVisits RequestedVisits [id number] Request/[id number] / Procedures Referred By ContactReferred To Contact Diagnoses Malignant neoplasm of lower-inner quadrant of right breast of female, estrogen receptor positive Procedures RAD ONC SIMULATION Deepti Gomez MD, PhD [address] [place] [address] Referral IDStatusReasonStart DateExpiration DateVisits RequestedVisits [id number]//[id number] / Procedures Referred By ContactReferred To Contact Diagnoses Malignant neoplasm of lower-inner quadrant of right breast of female, estrogen receptor positive Procedures MAMMO DIAGNOSTIC LEFT Prakash Méndez APRN-BUILD AND RELEASE MANAGER [address] [place] [address] Referral IDStatusReasonStart DateExpiration DateVisits RequestedVisits [id number] Request/ Reason 03/31/23 @ 9:15am wi th Sola Samayoa Asthma exacerbation no relief with prednisone - chest xray clear Diagnosis 1 Moderate persistent asthma with exacerbation (J45.41) Referral Organization [facility] Referring Provider First Name Tucker Referring Provider Last Name Adolfo Referring Provider Specialty Family [facility] cine Referred Organization [facility] Referred Provider Sola Samayoa Referred Address [address] [place] [address],[place] [address],[place], [place],[address] Referred Provider Specialty Nurse Bre calderón Referral Priority Routine Referral Appointment Date 2023-03-31 General Notes Please include patie nts chest xray Nathalie Valles 02/24/2023 04:09:26 PM >xr attached, received today, sent P2P Tomeka Carreon 02/25/2023 02:15:01 PM >Patient has been scheduledSpecialty Diagnoses / ProceduresReferred By ContactReferred To Contact Diagnoses Malignant neoplasm of lower-inner quadrant of right breast [place], [place] [address] [place] [address] Referral IDStatusReasonStart DateExpiration DateVisits RequestedVisits [id number] Outgoing - Transfer of Care/ SpecialtyDiagnoses / ProceduresReferred By ContactReferred To Contact Diagnoses Personal history of malignant neoplasm of breast Procedures MAMMO DIAGNOSTIC WITH ADRIEL LEFT Prakash Santiago APRN-EDEN [address] [place] [id number] Referral IDStatusReasonStart DateExpiration DateVisits RequestedVisits [id number] Request/[id number] / Procedures Referred By ContactReferred To Contact Diagnoses Malignant neoplasm of lower-inner quadrant of right breast of female, estrogen receptor positive Postmenopausal Aromatase inhibitor use Procedures BONE DENSITY AXIAL (HIP, PELVIS, SPINE) Arnaldo Land, BUSINESS DEVELOPMENT ASSISTANT-BUILD AND RELEASE MANAGER [address] [place] [address] Referral IDStatusReasonStart DateExpiration DateVisits RequestedVisits [id number] Request/ Chief Complaint and Reason for Visit Chief Complaint r05.8 j45.909 j84.9 Chief Complaint r91.8 Chief Complaint Admit Date Pt called for sooner due to increase cou ghing December 18, 2024 8:20am Reason for Visit Admit Date Allergic rhinitis December 18, 2024 8:2 0am GERD (gastroesophageal reflux disease) A 2024 8:20am Reactive airway disease December 18, 2024 8:20am Upper airway cough syndrome December 18, 2024 8:20am Chief Complaint Admit Date Pt called for sooner due to increase cou ghing December 18, 2024 8:20am Med Refill December 19, 2024 9:0 7am Reason for Visit Admit Date Allergic rhinitis December 18, 2024 8:2 0am GERD (gastroesophageal reflux disease) A 2024 8:20am Reactive airway disease December 18, 2024 8:20am Upper airway cough syndrome December 18, 2024 8:20am Hypothyroidism December 19, 2024 9:0 7am Chief Complaint Admit Date Pt called for sooner due to increase cou ghing December 18, 2024 8:20am Med Refill December 19, 2024 9:0 7am Sore Throat January 04, 2025 1:47pm Chief Complaint Admit Date Wellness June 05, 2025 10 :22am Chief Complaint Admit Date Wellness June 05, 2025 10 :22am rescheduled F/u asthma July 10 8:55am Reason for Visit Admit Date Asthma June 05, 2025 10 :22am Hypothyroidism June 05, 2025 10 :22am Medicare annual wellness visit, subseque nt June 05, 2025 10:22am Tinea pedis June 05, 2025 10 :22am Allergic rhinitis July 10, 2025 8:55am GERD (gastroesophageal reflux disease) N ovember 2024 8:55am Reactive airway disease July 10 8:55am Upper airway cough syndrome June 8:55am Additional Source Comments INFORMATION SOURCE (unrecogn ized section and content) DATE CREATED AUTHOR 01/30/2022 [facility] DATE CREATED AUTHOR AUTHOR'S ORGANIZ ATION 01/08/2024 [facility] Phys[facility] DATE CREATED AUTHOR AUTHOR'S ORGANIZ ATION 01/23/2024 [facility] DATE CREATED AUTHOR AUTHOR'S ORGANIZ ATION 04/27/2024 [facility] DATE CREATED AUTHOR AUTHOR'S ORGANIZ ATION 05/12/2024 [facility] DATE CREATED AUTHOR AUTHOR'S ORGANIZ ATION 05/15/2024 [facility] DATE CREATED AUTHOR AUTHOR'S ORGANIZ ATION 12/09/2024 [facility] DATE CREATED AUTHOR AUTHOR'S ORGANIZ ATION 02/15/2025 [facility] DATE CREATED AUTHOR AUTHOR'S ORGANIZ ATION 03/02/2025 [facility] DATE CREATED AUTHOR AUTHOR'S ORGANIZ ATION 03/07/2025 [facility] DATE CREATED AUTHOR AUTHOR'S ORGANIZ ATION 03/09/2025 [facility] DATE CREATED AUTHOR AUTHOR'S ORGANIZ ATION 03/30/2025 [facility] DATE CREATED AUTHOR AUTHOR'S ORGANIZ ATION 04/13/2025 [facility] EPIC Reason for Visit (unrecogniz ed section and content) SpecialtyDiagnoses / ProceduresReferred By ContactReferred To Contact Diagnoses Malignant neoplasm of lower-inner quadrant of right breast of female, estrogen receptor positive Procedures BREAST IMAGING SECOND OPINION READING Prakash Méndez, BUSINESS DEVELOPMENT ASSISTANT-BUILD AND RELEASE MANAGER [address] [place] [address] Referral IDStatusReasonStart DateExpiration DateVisits RequestedVisits [id number] Request/[id number] PatientNew Right Breast IDC ER/[place]+, [place]-SpecialtyDiagnoses / ProceduresReferred By Contact Referred To ContactSurgical Oncology Diagnoses New Patient right breast IDC-imaging and records through [facility]. Patient requested Dr. Smallwood and is scheduled in his first available. Patient declined coordinating appointments. NPP mailed Procedures NEW BREAST SURG ONC Self, Self Selin, Stuart Pandya MD [address] [facility] 3rd Floor, [address] [place] [address] Referral IDStatusReasonStart DateExpiration DateVisits RequestedVisits [id number] Request/[id number] / Procedures Referred By ContactReferred To Contact Diagnoses Malignant neoplasm of lower-inner quadrant of right breast of female, estrogen receptor positive Procedures US BREAST LIMITED UNILATERAL RIGHT Marlene Olivas APRN-BUILD AND RELEASE MANAGER [address] [place] [address] Referral IDStatusReasonStart DateExpiration DateVisits RequestedVisits [id number] Request/[id number] / Procedures Referred By ContactReferred To Contact Diagnoses Malignant neoplasm of lower-inner quadrant of right breast of female, estrogen receptor positive Procedures US AXILLA FOR MAMMOGRAPHY RIGHT Marlene Olivas APRN-BUILD AND RELEASE MANAGER [address] [place] [id number] Referral IDStatusReasonStart DateExpiration DateVisits RequestedVisits [id number] Request/[id number] / Procedures Referred By ContactReferred To Contact Diagnoses Pre-op testing Procedures MRI BREAST BILATERAL WITH AND WITHOUT CONTRAST CHG MRI BREAST WITHOUT&WITH CONTRAST W/CAD BILATERAL Marlene Olivas APRN-BUILD AND RELEASE MANAGER [address] [address] Referral IDStatusReasonStart DateExpiration DateVisits RequestedVisits [id number]/28/20227/[id number] PatientSpecialty Diagnoses / ProceduresReferred By ContactReferred To ContactPlastic Surgery Diagnoses Malignant neoplasm of lower-inner quadrant of right breast of female, estrogen receptor positive Marlene Olivas APRN-BUILD AND RELEASE MANAGER [address] [place] [address] Sharath Alvarado MD [address] [facility] [address] [place] [address] Referral IDStatusReasonStart DateExpiration DateVisits RequestedVisits [id number] [id number] / Procedures Referred By ContactReferred To Contact Diagnoses Malignant neoplasm of lower-inner quadrant of right breast of female, estrogen receptor positive Pre-op testing Procedures NUC MYOCARD PERF STRESS MIBI PHARM [place] CHG MYOCARDIAL SPECT MULTIPLE STUDIES CHG MYOCARDIAL SPECT MULTIPLE STUDIES-T [place] CARDIAC STRESS TST,INTERP/REPT ONLY [place] CV STRS TST XERS&/OR RX CONT ECG W/O I&R Marlene Olivas APRN-BUILD AND RELEASE MANAGER [address] [place] [address] Referral IDStatusReasonStart DateExpiration DateVisits RequestedVisits [id number]/28/20227/732310WlkahzEapemjkfMixusa CancerNew patient visit for discussion of Radiation Therapy for RIGHT Breast Cancer SpecialtyDiagnoses / ProceduresReferred By ContactReferred To ContactRadiation Oncology Diagnoses Malignant neoplasm of lower-inner quadrant of right breast of female, estrogen receptor positive Marlene Olivas APRN-BUILD AND RELEASE MANAGER [address] [place] [address] Referral IDStatusReasonStart DateExpiration DateVisits RequestedVisits [id number] Request6/28/99550/23/070748RouhnmOvbwbylgUer Patient SpecialtyDiagnoses / ProceduresReferred By ContactReferred To ContactOncology Diagnoses Malignant neoplasm of lower-inner quadrant of right breast of female, estrogen receptor positive Marlene Olivas, BUSINESS DEVELOPMENT ASSISTANT-BUILD AND RELEASE MANAGER [address] [facility] [address] [place] [address] Referral IDStatusReasonStart DateExpiration DateVisits RequestedVisits [id number] Request/[id number] Op VisitS/p right total mastectomy with TE reconstructionReasonCommentsPost Op VisitReason CommentsPost Op VisitPt states is doing well, taking tylenol as needed, no fever, no redness or swelling, Had right mastectomy on 04/10/22, [address]ReasonCommentsBreast LfeipciGkzdniLvvxdmlbZmddew-vhJmzffoPtzdcqcoQvzlvo-nb Follow-up visit and Oncotype reviewReasonCommentsPre-op ExamReasonComments SimulationSpecialtyDiagnoses / ProceduresReferred By ContactReferred To Contact Radiation Oncology Procedures CT SIMULATION Deepti Gomez MD, PhD [address] [place] [address] Referral IDStatusReasonStart DateExpiration DateVisits RequestedVisits [id number]/2/202212/[id number] / Procedures Referred By ContactReferred To Contact Diagnoses Malignant neoplasm of lower-inner quadrant of right breast of female, estrogen receptor positive Procedures BONE DENSITY AXIAL (HIP, PELVIS, SPINE) Mel Giron MD [address] [place] [address] Referral IDStatusReasonStart DateExpiration DateVisits RequestedVisits [id number] Request/[id number] Treatment VisitFor radiation therapy for RIGHT sided breast cancer. 12/13 fractions, 1064/4256 cGy delivered.ReasonCommentsOn Treatment VisitRIGHT Chest Wall 6/16 Fractions; 1596/4256 cGyReasonCommentsBreast CancerFollow up and CT simulation for radiation therapy for RIGHT sided breast cancer.ReasonCommentsOn Treatment VisitRIGHT Chest Wall 16/16 Fractions; 4256/4256 cGyReasonCommentsBreast Cancer Follow up for radiation therapy for RIGHT sided breast cancer completed 09/04/2022.ReasonCommentsFollow-upPt states no breast concerns, had a left mammo today, history of right breast cancerSpecialtyDiagnoses / ProceduresReferred By ContactReferred To Contact Diagnoses Personal history of malignant neoplasm of breast Procedures MAMMO DIAGNOSTIC WITH ADRIEL LEFT Prakash Méndez APRN-BUILD AND RELEASE MANAGER [address] [place] [address] Referral IDStatusReasonStart DateExpiration DateVisits RequestedVisits [id number] Request/[id number]-iw ExemestaneReasonCommentsPre-op ExamReasonCommentsFollow-upLetrozoleReason CommentsLeft Knee PainReasonCommentsFollow-upAnnual exam w/ mammoReasonComments Dowbek-gdMdqhtc-cp visit after completion of Radiation Therapy for Right Chest Wall and Nodes 16/16 Fractions; 425/4256 cGySpecialtyDiagnoses / Procedures Referred By ContactReferred To Contact Diagnoses Malignant neoplasm of lower-inner quadrant of right breast of female, estrogen receptor positive Procedures MAMMO DIAGNOSTIC WITH ADRIEL LEFT MAMMO DIAGNOSTIC LEFT Prakash Santiago APRN-BUILD AND RELEASE MANAGER [address] [place] [address] Referral IDStatusReasonStart DateExpiration DateVisits RequestedVisits [id number]/31/20236/[id number]-giAqvfnvkxc and follow-up visit - on LetrozoleReasonCommentsOsteoarthritisReasonCommentsPost-op SpecialtyDiagnoses / ProceduresReferred By ContactReferred To Contact Diagnoses Malignant neoplasm of lower-inner quadrant of right breast of female, estrogen receptor positive Postmenopausal Aromatase inhibitor use Procedures BONE DENSITY AXIAL (HIP, PELVIS, SPINE) Emery Arnaldo Terry, BUSINESS DEVELOPMENT ASSISTANT-BUILD AND RELEASE MANAGER [address] [place] [phone] Referral IDStatusReasonStart DateExpiration DateVisits RequestedVisits [id number] Request/[id number]-ebJHB NOMS 03/08/24ReasonCommentsPost-op VisitREV TSA 05/10/24ReasonCommentsOsteoarthritis Czifet-xhTvmajdOtpjwioiBfomxs-cvR Rev TSA 05/10/24ReasonCommentsPainSx 12/20/24 Post-opSx 12/20/24ReasonCommentsPost-opLt TKA FT 02/28/25ReasonCommentsFollow-up Care Teams (unrecognized sec tion and content) Team MemberRelationshipSpecialtyStart DateEnd Date Tucker Haywood MD [address] [place] [address] PCP - GeneralFamily Medicine02/24/22Team MemberRelationshipSpecialtyStart DateEnd Date Tucker Haywood MD [address] [place] [address] PCP - GeneralFamily Medicine02/24/22Team MemberRelationshipSpecialtyStart DateEnd Date Tucker Haywood MD [address] [place] [address] PCP - Generalmily Medicine02/24/22Team MemberRelationshipSpecialtyStart DateEnd Date Tucker Haywood MD [address] [place] [address] PCP - Generalmily Medicine02/24/22Team MemberRelationshipSpecialtyStart DateEnd Date Tucker Haywood MD [address] [place] [address] PCP - GeneralFamily Medicine02/24/22Team MemberRelationshipSpecialtyStart DateEnd Date Tucker Haywood MD [address] [place] [address] PCP - Generalmily Medicine02/24/22Team MemberRelationshipSpecialtyStart DateEnd Date Tucker Haywood MD [address] [place] [address] PCP - Generalmily Medicine02/24/22Team MemberRelationshipSpecialtyStart DateEnd Date Tucker Haywood MD [address] [place] [address] [facility]/22Team MemberRelationshipSpecialtyStart DateEnd Date Tucker Haywood MD [address] [place] [address] [facility]/24/22Team MemberRelationshipSpecialtyStart DateEnd Date Tucker Haywood MD [address] [place] [address] [facility]/24/22Team MemberRelationshipSpecialtyStart DateEnd Date Tucker Haywood MD [address] [place] [address] PCP - Generalmily Medicine02/24/22Team MemberRelationshipSpecialtyStart DateEnd Date Tucker Haywood MD [address] [place] [address] PCP - Generalmily Medicine02/24/22Team MemberRelationshipSpecialtyStart DateEnd Date Tucker Haywood MD [address] [place] [address] PCP - Generalmily Medicine02/24/22Team MemberRelationshipSpecialtyStart DateEnd Date Tucker Haywood MD [address] [place] [address] PCP - GeneralFamily Medicine02/24/22Team MemberRelationshipSpecialtyStart DateEnd Date Tucker Haywood MD [address] [place] [address] PCP - Generalmily Medicine02/24/22Team MemberRelationshipSpecialtyStart DateEnd Date Tucker Haywood MD [address] [place] [address] [facility] - [facility]02/24/22 Mel Giron MD [address] [place] [address] OncologistMedical Oncology05/13/22 Arnaldo Land, BUSINESS DEVELOPMENT ASSISTANT-BUILD AND RELEASE MANAGER [address], [address] [place] [address] Certified Nurse Practitioner05/13/22Team MemberRelationshipSpecialtyStart DateEnd Date Tucker Haywood MD [address] [place] [address] PCP - Generalmi Medicine02/24/22 Mel Giron MD [address], [address] [place] [address] OncologistMedical Oncology05/13/22 Arnaldo Land, BUSINESS DEVELOPMENT ASSISTANT-BUILD AND RELEASE MANAGER [address], [address] [place] [address] Certified Nurse Practitioner05/13/22Team MemberRelationshipSpecialtyStart DateEnd Date Tucker Haywood MD [address] [place] [address] PCP - Generalmi Medicine02/24/22 Mel Giron MD [address], [address] [place] [address] OncologistMedical Oncology05/13/22 Arnaldo Land, BUSINESS DEVELOPMENT ASSISTANT-BUILD AND RELEASE MANAGER [address], [address] [place] [address] Certified Nurse Practitioner05/13/22Team MemberRelationshipSpecialtyStart DateEnd Date Tucker Haywood MD [address] [place] [address] PCP - [facility] Medicine02/24/22 Mel Giron MD [address], [address] [place] [address] OncologistMedical Oncology05/13/22 Arnaldo Land, BUSINESS DEVELOPMENT ASSISTANT-BUILD AND RELEASE MANAGER [address], [address] [place] [address] Certified Nurse Practitioner05/13/22Te MemberRelationshipSpecialtyStart DateEnd Date Tucker Haywood MD [address] [place] [address] PCP - GeneralFamily Medicine02/24/22 Mel Giron MD [address], [address] [place] [address] OncologistMedical Oncology05/13/22 Arnaldo Land, BUSINESS DEVELOPMENT ASSISTANT-BUILD AND RELEASE MANAGER [address], [address] [place] [address] Certified Nurse Practitioner05/13/22Team MemberRelationshipSpecialtyStart DateEnd Date Tucker Haywood MD [address] [place] [address] PCP - GeneralFamily Medicine02/24/22 Mel Giron MD [address], [address] [place] [address] OncologistMedical Oncology05/13/22 Arnaldo Land, BUSINESS DEVELOPMENT ASSISTANT-BUILD AND RELEASE MANAGER [address], [address] [place] [address] Certified Nurse Practitioner05/13/22Team MemberRelationshipSpecialtyStart DateEnd Date Tucker Haywood MD [address] [place] [address] PCP - GeneralFamily Medicine02/24/22 Mel Giron MD [address], [address] [place] [address] OncologistMedical Oncology05/13/22 Arnaldo Land, BUSINESS DEVELOPMENT ASSISTANT-BUILD AND RELEASE MANAGER [address], [address] [place] [address] Certified Nurse Practitioner05/13/22Team MemberRelationshipSpecialtyStart DateEnd Date Tucker Haywood MD [address] [place] [address] PCP - GeneralFamily Medicine02/24/22 Mel Giron MD [address], [address] [place] [address] OncologistMedical Oncology05/13/22 Arnaldo Land, BUSINESS DEVELOPMENT ASSISTANT-BUILD AND RELEASE MANAGER [address], [address] [place] [address] Certified Nurse Practitioner05/13/22Team MemberRelationshipSpecialtyStart DateEnd Date Tucker Haywood MD [address] [place] [address] PCP - GeneralFamily Medicine02/24/22 Mel Giron MD [address], [address] [place] [address] OncologistMedical Oncology05/13/22 Arnaldo Land, BUSINESS DEVELOPMENT ASSISTANT-BUILD AND RELEASE MANAGER [address], [address] [place] [address] Certified Nurse Practitioner05/13/22Team MemberRelationshipSpecialtyStart DateEnd Date Tucker Haywood MD [address] [place] [address] PCP - GeneralFamily Medicine02/24/22 Mel Giron MD [address], [address] [place] [address] OncologistMedical Oncology05/13/22 Arnaldo Land, BUSINESS DEVELOPMENT ASSISTANT-BUILD AND RELEASE MANAGER [address], [address] [place] [phone] Certified Nurse Practitioner05/13/22Team MemberRelationshipSpecialtyStart DateEnd Tucker Mcmillan MD [address] [place] [address] PCP - GeneralFamily Medicine02/24/22 Mel Giron MD [address] Floor, [address] [place] [address] OncologistMedical Oncology05/13/22 Arnaldo Land, BUSINESS DEVELOPMENT ASSISTANT-BUILD AND RELEASE MANAGER [address], [address] [place] [address] Certified Nurse Practitioner05/13/22Team MemberRelationshipSpecialtyStart DateEnd Date Tucker Haywood MD [address] [place] [address] PCP - GeneralFamily Medicine02/24/22 Mel Giron MD [address] 4[address] Floor, [address] [place] [address] OncologistMedical Oncology05/13/22 Arnaldo Land, BUSINESS DEVELOPMENT ASSISTANT-BUILD AND RELEASE MANAGER [address] Floor, [address] [place] [address] Certified Nurse Practitioner05/13/22Team MemberRelationshipSpecialtyStart DateEnd Date Tucker Haywood MD [address] [place] [address] PCP - GeneralFamily Medicine02/24/22 Mel Giron MD [address] Floor, [address] [place] [address] OncologistMedical Oncology05/13/22 Arnaldo Land, BUSINESS DEVELOPMENT ASSISTANT-BUILD AND RELEASE MANAGER [address] Floor, [address] [place] [address] Certified Nurse Practitioner05/13/22Team MemberRelationshipSpecialtyStart DateEnd Date Tucker Haywood MD [address] [place] [address] PCP - GeneralFamily Medicine02/24/22 Mel Giron MD [address] Floor, [address] [place] [address] OncologistMedical Oncology05/13/22 Arnaldo Land, BUSINESS DEVELOPMENT ASSISTANT-BUILD AND RELEASE MANAGER [address] Floor, [address] [place] [address] Certified Nurse Practitioner05/13/22Team MemberRelationshipSpecialtyStart DateEnd Date Tucker Haywood MD [address] [place] [address] PCP - GeneralFami Medicine02/24/22 Mel Giron MD [address] Floor, [address] [place] [address] OncologistMedical Oncology05/13/22 Arnaldo Land, BUSINESS DEVELOPMENT ASSISTANT-BUILD AND RELEASE MANAGER [address] Floor, [address] [place] [address] Certified Nurse Practitioner05/13/22Team MemberRelationshipSpecialtyStart DateEnd Date Tucker Haywood MD [address] [place] [address] PCP - GeneralFamily Medicine02/24/22 Mel Giron MD [address] Floor, [address] [place] [address] OncologistMedical Oncology05/13/22 Arnaldo Land, BUSINESS DEVELOPMENT ASSISTANT-BUILD AND RELEASE MANAGER [address] Floor, [address] [place] [address] Certified Nurse Practitioner05/13/22Team MemberRelationshipSpecialtyStart DateEnd Date Tucker Haywood MD [address] [place] [address] PCP - GeneralFamily Medicine02/24/22 Mel Giron MD [address] Floor, [address] [place] [address] OncologistMedical Oncology05/13/22 Arnaldo Land, BUSINESS DEVELOPMENT ASSISTANT-BUILD AND RELEASE MANAGER [address] Floor, [address] [place] [address] Certified Nurse Practitioner05/13/22Team MemberRelationshipSpecialtyStart DateEnd Date Tucker Haywood MD [address] [place] [address] PCP - GeneralFamily Medicine02/24/22 Mel Giron MD [address] Floor, [address] [place] [address] OncologistMedical Oncology05/13/22 Arnaldo Land, BUSINESS DEVELOPMENT ASSISTANT-BUILD AND RELEASE MANAGER [address] Floor, [address] [place] [address] Certified Nurse Practitioner05/13/22Team MemberRelationshipSpecialtyStart DateEnd Date Tucker Haywood MD [address] [place] [phone] PCP - GeneralFamily Medicine02/24/22 Mel Giron MD [address] Floor, [address] [place] [address] OncologistMedical Oncology05/13/22 Arnaldo Land APRN-CNP [address], [address] [place] [phone] Certified Nurse Practitioner05/13/22 Team Status: Active Member Role Status Dates Tucker Haywood MD Primary Care Provider Active Team Status: Inactive Member Role Status Dates Tucker Haywood MD Primary Care Provider Active Sola Samayoa APRN ACNP-BCAttending ProviderActiveTeam MemberRelationship SpecialtyStart DateEnd Date Tucker Haywood MD [address], [phone] PCP - GeneralFamily Medicine02/24/22 Mel Giron MD [address], [address] [place] [address] OncologistMedical Oncology05/13/22 Arnaldo Land APRN-BUILD AND RELEASE MANAGER [address] Floor, [address] [place] [address] Certified Nurse Practitioner05/13/22Team MemberRelationshipSpecialtyStart DateEnd Date Tucker Haywood MD [address] [place] [address] PCP - GeneralFamily Medicine02/24/22 Mel Giron MD [address], [address] [place] [address] OncologistMedical Oncology05/13/22 Arnaldo Land APRN-EDEN [address], [address] [place] [address] Certified Nurse Practitioner05/13/22Team MemberRelationshipSpecialtyStart DateEnd Date Tucker Haywood MD [address] [place] [address] PCP - GeneralFamily Medicine02/24/22 Mel Giron MD [address] Floor, [address] [place] [address] OncologistMedical Oncology05/13/22 Arnaldo Land APRN-BUILD AND RELEASE MANAGER [address], [address] [place] [address] Certified Nurse Practitioner05/13/22 Team Status: Inactive Member Role Status Dates Tucker Haywood MD Primary Care Provider Active Start: October 15, 2023 End: October 15, 2023Hezoë Samayoa APRN ACNP-BCAttending ProviderActiveStart: October 15, 2023 End: October 15, 2023Team MemberRelationshipSpecialtyStart DateEnd Date Tucker Haywood MD [address] [place] [facility] [address] PCP - GeneralFamily Vwwjxmbj47/1/13 Sarah Romero MD [address] [place] [facility] [place] [address] AnqrvgmgrRmxrfelpk86/15/17 Oralia Hinkle MD [address] [place] [address] Primary Staff PhysicianCardiology11/15/18 Wood Suazo MD [address] [place] [address] Primary Staff PhysicianInternal Medicine03/06/21Team MemberRelationshipSpecialty Start DateEnd Date Tucker Haywood MD [address] [place] [address] PCP - GeneralFamily Vbgiqxun80/1/13 Sarah Romero MD [address] [place] [facility] [place] [address] GsglbevkiWjfubqrbc88/15/17 Oralia Hinkle MD [address] [place] [address] Primary Staff PhysicianCardiology11/15/18 Wood Suazo MD [address] [place] [address] Primary Staff PhysicianInternal Medicine03/06/21Te MemberRelationshipSpecialty Start DateEnd Date Tucker Haywood MD [address] [place] [address] PCP - GeneralFamily Medicine02/24/22 Mel Valdes MD [address] Floor, [address] [place] [address] OncologistMedical Oncology05/13/22 Arnaldo Land APRN-BUILD AND RELEASE MANAGER [address] Floor, [address] [place] [address] Certified Nurse Practitioner05/13/22Team MemberRelationshipSpecialtyStart DateEnd Date Tucker Haywood MD [address] [place] [address] PCP - GeneralFamily Medicine02/24/22 Mel Valdes MD [address] Floor, [address] [place] [address] OncologistMedical Oncology05/13/22 Arnaldo Land, BUSINESS DEVELOPMENT ASSISTANT-BUILD AND RELEASE MANAGER [address], [address] [place] [address] Certified Nurse Practitioner05/13/22Team MemberRelationshipSpecialtyStart DateEnd Date Tucker Haywood MD [address] [place] [address] PCP - GeneralFamily Medicine02/24/22 Mel Valdes MD [address] Floor, [address] [place], [facility] OncologistMedical Oncology05/13/22 Arnaldo Land, BUSINESS DEVELOPMENT ASSISTANT-BUILD AND RELEASE MANAGER [address] Floor, [address] [place] [address] Certified Nurse Practitioner05/13/22Team MemberRelationshipSpecialtyStart DateEnd Date Tucker Haywood MD [address] [place] [address] PCP - GeneralFamily Medicine02/24/22 Mel Valdes MD [address], [address] [place] [address] OncologistMedical Oncology05/13/22 Arnaldo Land, BUSINESS DEVELOPMENT ASSISTANT-BUILD AND RELEASE MANAGER [address], [address] [place] [address] Certified Nurse Practitioner05/13/22Team MemberRelationshipSpecialtyStart DateEnd Date Tucker Haywood MD [address] [facility] [place] [address] PCP - GeneralFamily Medicine12/10/23Team MemberRelationshipSpecialtyStart DateEnd Date Tucker Haywood MD [address] [facility] [place] [address] PCP - GeneralFamily Medicine12/10/23Team MemberRelationshipSpecialtyStart DateEnd Date Tucker Haywood MD [address] [facility] [place] [address] PCP - GeneralFamily Medicine12/10/23Team MemberRelationshipSpecialtyStart DateEnd Date Tucker Haywood MD [address] [facility] [place] [address] PCP - GeneralFamily Medicine12/10/23Team MemberRelationshipSpecialtyStart DateEnd Date Tucker Haywood MD [address] [facility] [place] [address] PCP - GeneralFamily Medicine12/10/23Team MemberRelationshipSpecialtyStart DateEnd Date Tucker Haywood MD [address] [facility] [place] [address] PCP - GeneralFamily Medicine12/10/23Team MemberRelationshipSpecialtyStart DateEnd Date Tucker Haywood MD [address] [facility] [place] [address] PCP - Generalmily Medicine12/10/23 Team Status: Inactive Member Role Status Dates Tucker Haywood MD Primary Care Provider Active Start: December 18, 2024 End: December 18, 2024Hezoë Samayoa APRN ACNP-BCAttending ProviderActiveStart: December 18, 2024 End: December 18, 2024 Team Status: Inactive Member Role Status Dates Tucker Haywood MD Primary Care Provide r, Attending Provider Active Start: December 19, 2024 End: December 19, 2024Team MemberRelationshipSpecialtyStart DateEnd Date Tucker Haywood MD [facility]12/10/23 Team Status: Inactive Member Role Status Dates Tucker Haywood MD Primary Care Provide r, Attending Provider Active Start: January 04, 2025 End: January 04, 2025Team MemberRelationshipSpecialtyStart DateEnd Date Tucker Haywood MD [address] [facility] [address] PCP - GeneralFamily Medicine01/01/25Team MemberRelationshipSpecialtyStart DateEnd Date Tucker Haywood MD [address] [facility] [place] [address] PCP - GeneralFamily Medicine01/01/25Team MemberRelationshipSpecialtyStart DateEnd Date Tucker Haywood MD [address] [facility] [place] [address] PCP - GeneralFamily Medicine01/01/25Team MemberRelationshipSpecialtyStart DateEnd Date Tucker Haywood MD [address] [facility] [place] [address] PCP - GeneralFamily Medicine01/01/25Team MemberRelationshipSpecialtyStart DateEnd Date Tucker Haywood MD [address] [facility] [place] [address] PCP - GeneralFamily Medicine01/01/25Team MemberRelationshipSpecialtyStart DateEnd Date Tucker Haywood MD [address] [facility] [place] [address] PCP - GeneralFamily Medicine01/01/25Team MemberRelationshipSpecialtyStart DateEnd Date Tucker Haywood MD [address] [facility] [place] [address] PCP - GeneralFamily Medicine01/01/25Team MemberRelationshipSpecialtyStart DateEnd Date Tucker Haywood MD [address] [facility] [place] [address] PCP - GeneralFamily Medicine01/01/25Team MemberRelationshipSpecialtyStart DateEnd Date Tucker Haywood MD PCP - GeneralFamily Medicine02/24/22 Mel Valdes MD [facility] 4th Floor, [address] [place] [address] OncologistMedical Oncology05/13/22 Arnaldo Land APRN-EDEN [address], [address] [place], [facility] Certified Nurse Practitioner05/13/22Team MemberRelationshipSpecialtyStart DateEnd Date Tucker Haywood MD PCP - GeneralFamily Medicine02/24/22 Mel Valdes MD [address], [address] [place], [place] [phone] OncologistMedical Oncology05/13/22 Arnaldo Land APRN-BUILD AND RELEASE MANAGER [address], [address] [place], [phone] Certified Nurse Practitioner05/13/22Te MemberRelationshipSpecialtyStart DateEnd Date Tucker Haywood MD PCP - GeneralFamily Medicine02/24/22 Mel Valdes MD [address] Floor, [address] [place], [facility] OncologistMedical Oncology05/13/22 Arnaldo Land APRN-BUILD AND RELEASE MANAGER [address], [address] [place], [facility] Certified Nurse Practitioner05/13/22Team MemberRelationshipSpecialtyStart DateEnd Date Tucker Haywood MD [address] [facility] [place] [address] PCP - Generalmily Medicine01/01/25Team MemberRelationshipSpecialtyStart DateEnd Date Tucker Haywood MD [address] [facility] [place] [address] [facility] - [facility]01/01/25Team MemberRelationshipSpecialtyStart DateEnd Date Tucker Haywood MD [address] [facility] [place] [address] [facility] - [facility] Medicine01/01/25Team MemberRelationshipSpecialtyStart DateEnd Date Tucker Haywood MD [address] [facility] [place] [address] [facility] - [facility] Medicine01/01/25 Team Status: Inactive Member Role Status Dates Tucker Haywood MD Primary Care Provider Active Start: June 05, 2025 End: June 05, 2025Tucker Haywood MDAttcritical access hospital ProviderActiveStart: June 05, 2025 End: June 05, 2025Team MemberRelationshipSpecialtyStart DateEnd Date Tucker Haywood MD PCP - GeneralFamily Medicine/12/22 Tucker Haywood MD [address] [facility] [place] [address] PCP - [facility] Medicine01/01/25 Team Status: Active Member Role/Relationship Status Dates Tucker Haywood MD Primary Care Provider Active Team Status: Inactive Member Role/Relationship Status Dates Tucker Haywood MD Primary Care Provider Active Start: June 05, 2025 End: June 05, 2025Tucker Haywood MDAttgermania ProviderActiveStart: June 05, 2025 End: June 05, 2025 Team Status: Inactive Member Role/Relationship Status Dates Tucker Haywood MD Primary Care Provider Active Start: July 10, 2025 End: July 10, 2025Heidi Danita , BUSINESS DEVELOPMENT ASSISTANT ACNP-BCAttending ProviderActiveStart: July 10, 2025 End: July 10, 2025 Scheduled Active and Recently Administ ered Medications (unrecognized section and content) Medication Order// acetaminophen (TYLENOL) tablet 975 mg (COMPLETED) 975 mg, Oral, ONCE, 1 dose, On Wed04/10/22 at 0515, Maximum dose of acetaminophen is 4000 mg from all sources in 24 hours., Pre-op/Pre-Proc * 0643 (Given - Provider: Gertrudis Swartz RN) acetaminophen (TYLENOL) tablet 975 mg 975 mg, Oral, EVERY 8 HOURS NON-STANDARD, First dose on Wed04/10/22 at 1600, Until Discontinued, Administer each dose four hours after dose of ibuprofen., Post-op/Post-Proc * 1540 (Given - Provider: Jessica Epsosito RN) * 0029 (Given - Provider: Lilly Funez, ADAN) * 0802 (Given - Provider: Ragini Galvez RN) ceFAZolin (ANCEF) 1 g in dextrose premix IVPB (COMPLETED) 1 g, Intravenous, Administer over 15 Minutes, EVERY 8 HOURS NON-STANDARD, 3 doses, First dose on Wed04/10/22 at 1415, Last dose on Wed04/11/22 at 0615, Post-op/Post-Proc * 1544 ($$New Bag$$ - Provider: Jessica Esposito RN) * 2148 ($$New Bag$$ - Provider: Lilly Funez, RN) * 0551 ($$New Bag$$ - Provider: Lilly Funez, ADAN) ibuprofen (MOTRIN) tablet 600 mg 600 mg, Oral, EVERY 8 HOURS NON-STANDARD, First dose on Wed04/10/22 at 2000, Until Discontinued, Administer each dose four hours after dose of acetaminophen., Post-op/Post-Proc * 2050 (Given - Provider: Lilly Funez, ADAN) * 0440 (Given - Provider: Lilly Funez RN) levothyroxine (SYNTHROID) tablet 50 mcg 50 mcg, Oral, DAILY BEFORE BREAKFAST, First dose on Wed04/11/22 at 0600, Until Discontinued, Post-op/Post-Proc * 0552 (Given - Provider: Lilly Funez RN) ondansetron 4mg/2ml (ZOFRAN) injection 4 mg (COMPLETED) 4 mg, Intravenous, ONCE, 1 dose, On Wed04/10/22 at 1215, Recovery * 1223 (Given - Provider: Lizzeth Marie RN) scopolamine (TRANSDERM-SCOP) patch 1 patch (CANCELED) 1 patch, Transdermal, ONCE, 1 dose, On Wed04/10/22 at 0515, Patient with history of motion sicknessand/or previous postoperative nausea/vomiting. Each patch delivers 1 mg over 72 hours., Pre-op/Pre-Proc * 0536 (Patch Applied - Provider: Gertrudis Swartz RN) * 1426 (Patch Removed - Provider: Jessica Esposito, RN - Comment: Time automatically adjusted from orderbeing discontinued) senna (SENOKOT) tablet 8.6 mg 8.6 mg, Oral, 2 TIMES DAILY, First dose on Wed04/10/22 at 1700, Until Discontinued, Post-op/Post-Proc * 1540 (Given - Provider: Jessica Esposito, RN) * 0815 (Not Given - Provider: Ragini Galvez RN - Reason: Patient/family refused - Comment: will take after long drive home.) Medication Order// lactated ringers IV solution (CANCELED) Intravenous, at 50 mL/hr, CONTINUOUS, Starting on Wed04/10/22 at 0515, Until Wed04/10/22 at 1348, Pre-op/Pre-Proc * 0605 ($$New Bag$$ - Provider: Lakeisha Leigh RN) * 0848 (Paused - Provider: YORDAN Lino - Comment: Switch to gravity) * 0849 ($$New Bag$$ - Provider: YORDAN Lino) * 1425 (Stopped - Provider: Jessica Esposito RN) lactated ringers IV solution (CANCELED) Intravenous, at 75 mL/hr, CONTINUOUS, Starting on Wed04/10/22 at 1245, Until 04/11/22 at 0616, May saline well PIV after 6 hours if tolerating PO fluids w/o N/V., Post-op/Post-Proc * 1238 ($$New Bag$$ - Provider: Lizzeth Marie, RN) * 1544 (Paused - Provider: Jessica Esposito RN) * 1559 (Restarted - Provider: Jessica Esposito RN) * 1721 (Rate/Dose Verify - Provider: Jessica Esposito RN) * 0232 (Stopped - Provider: Lilly Funez RN) Medication Order/ ceFAZolin (ANCEF) 2 g in dextrose 100 mL premix IVPB (COMPLETED) 2 g, Intravenous, Administer over 30 Minutes, WAREHOUSE WORKER 2ND SHIFT TO PROCEDURE, 1 dose, Starting on Wed04/10/22at 0508, Until Discontinued, Other, Surgical Prophylaxis, Initiate antibiotic administration 30-60 minutes prior to surgical incision and complete administration prior to surgical incision., Pre-op/Pre-Proc * 0738 (Given - Provider: Bayron Ac, BUSINESS DEVELOPMENT ASSISTANT-STRATEGY ASSOCIATE) cyclobenzaprine (FLEXERIL) tablet 10 mg 10 mg, Oral, EVERY 6 HOURS NEEDED, Starting on Wed04/10/22 at 1401, Until 04/11/22 at 1154, Other, Muscle cramping or pain, use prior to opioids., Post-op/Post-Proc * 1742 (Given - Provider: Jessica Esposito RN) HYDROmorphone (DILAUDID) injection 0.5-1 mg (CANCELED) 0.5-1 mg, Intravenous, EVERY 10 MINUTES NEEDED, 4 doses, Starting on Wed04/10/22 at 1210, Until Wed04/10/22 at 1348, Moderate Pain, Recovery * 1235 (Given - Provider: Lizzeth Marie, ADAN) isosulfan blue (LYMPHAZURIN) 1 % injection (CANCELED) NEEDED, Starting on Wed04/10/22 at 0842, Until Wed04/10/22 at 1151, Intra-op/Intra-Proc * 0842 (Given - Provider: Stuart Smallwood MD) ondansetron [...] (RR<10, decrease in level of consciousness)., Post-op/Post-Proc * 2049 (See Alternative - Provider: Lilly Funez [...] PRN used in previous 12 hours., Post-op/Post-Proc * 2049 (Given - Provider: Lilly Funez RN) povidone-iodine (BETADINE) 10 % 59 mL in sodium chloride 0.9 % 120 mL irrigation solution (CANCELED) NEEDED, Starting on Wed04/10/22 at 1047, Until Wed04/10/22 at 1151, Intra-op/Intra-Proc * 1047 (Given - Provider: Sharath Alvarado MD - Comment: used to irrigate breast pocket) povidone-iodine (BETADINE) 10 % topical solution (CANCELED) NEEDED, Starting on Wed04/10/22 at 1045, Until Wed04/10/22 at 1151, Intra-op/Intra-Proc * 1045 (Given - Provider: Sharath Alvarado MD - Comment: applied to skin of breast/chest) prochlorperazine (COMPAZINE) injection 10 mg 10 mg, Intravenous, EVERY 6 HOURS NEEDED, Starting on Wed04/10/22 at 1401, Until 04/11/22 at 1154, Refractory Nausea Vomiting, In addition to 1st line therapy., Post-op/Post-Proc sodium chloride 0.9 % irrigation (CANCELED) NEEDED, Starting on Wed04/10/22 at 0949, Until Wed04/10/22 at 1151, Intra-op/Intra-Proc * 0949 (Given - Provider: Stuart Smallwood MD) * 1121 (Given - Provider: Sharath Alvarado MD) tobramycin PF (NEBCIN) 80 mg, ceFAZolin (ANCEF) 1 g in sodium chloride 0.9 % 1,000 mL irrigation solution (CANCELED) NEEDED, Starting on Wed04/10/22 at 0949, Until Wed04/10/22 at 1151, Intra-op/Intra-Proc * 0949 (Given - Provider: Stuart Smallwood MD) tobramycin PF (NEBCIN) 80 mg, ceFAZolin (ANCEF) 1 g in sodium chloride 0.9 % 500 mL irrigation solution (CANCELED) NEEDED, Starting on Wed04/10/22 at 1045, Until Wed04/10/22 at 1151, Intra-op/Intra-Proc * 1045 (Given - Provider: Sharath Alvarado MD - Comment: used to irrgate breast pocket) traMADol (ULTRAM) tablet 50 mg 50 mg, Oral, EVERY 6 HOURS NEEDED, Starting on Wed04/10/22 at 1401, Until 04/11/22 at 1154, Mild Pain, Moderate Pain, Post-op/Post-Proc * 1426 (Given - Provider: Jessica Esposito RN) Medication Order// HYDROmorphone (DILAUDID) injection (COMPLETED) 1 dose, Starting on Wed04/10/22 at 1201, Created by cabinet override * 1219 (Given - Provider: Lizzeth Marie RN) Order Group 1: oxyCODONE (ROXICODONE) tablet 2.5 mgJump to med 2.5 mg, Oral, EVERY 4 HOURS NEEDED, Starting on 04/10/22 at 1401, Until 04/11/22 at 1154, Moderate Pain
Use as initial dose. Higher dose may be administered if lower dose was previously documented as ineffective and did not result in adverse effects (RR<10, decrease in level of consciousness).
Post-op/Post-Proc Or oxyCODONE (ROXICODONE) tablet 5 mgJump to med 5 mg, Oral, EVERY 4 HOURS NEEDED, Starting on 04/10/22 at 1401, Until 04/11/22 at 1154, Moderate Pain
Higher dose may be administered if lower dose was previously documented as ineffective and did not result in adverse effects (RR<10, decrease in level of consciousness). Decrease back to lower dose if patient has adverse effects, or no PRN used in previous 12 hours.<br& gt;Post-op/Post-Proc Goals (unrecognized section and content) Goals may be documented in a n alternate section Source Comments (unrecognize d section and content) In the event this informatio n is protected by the Federal Confidentiality of Alcohol and Drug Abuse Patient Records regulations: The Federal rules restrict any use of the information to criminally investigate or prosecute any alcohol or drug abuse patient.[facility] CenterIn the event this information is protected by the Federal Confidentiality of Alcohol and Drug Abuse Patient Records regulations: The Federal rules restrict any use of the information to criminally investigate or prosecute any alcohol or drug abuse patient.[facility] FOR RECORDS PERTAINING TO PATIENTS WHO [...] BE BASED ON THE PRIMARY CLINICAL RECORDS. [facility]. provides no warranty or guarantee of the accuracy or completeness of information in this document.
[2025-07-31 11:55] LABS: Hematocrit 37.3 % (36.0-48.0); Hemoglobin 12.4 g/dL (12.0-16.0); Immature Granulocytes Abs Auto 0.01 10^3/uL (0.00-0.03); Immature Granulocytes Pct Auto 0.2 % (0.0-0.5); Lymphocytes Absolute Auto 1.3 10^3/uL (1.2-3.8); Mean Corpuscular HGB Conc 33.2 g/dL (29.9-35.2); Mean Corpuscular Hemoglobin 32.5 pg (26.7-34.0); Mean Corpuscular Volume 97.6 fL (81.0-99.0); Platelet Count 204 10^3/uL (150-450); Red Blood Count 3.82 10^6/uL (4.20-5.40); White Blood Count 4.5 10^3/uL (4.0-11.0)
== END 2025-07-31 11:40 | disposition home or self-care (01) ==
LOC: LAB 11:41
PROVIDERS: PCP Family Medicine; Visit Provider Ophthalmology
DX: H02.831 Dermatochalasis of right upper eyelid (principal); H02.834 Dermatochalasis of left upper eyelid
CPT/HCPCS: 36415; 85025